=== PATIENT | female | born 1960 | race Caucasian/White ===

== ENCOUNTER 2017-11-29 17:02 | Observation (INO) | payer MEDICAID, SELFPAY ==
[2017-11-29] VITALS (12 sets, daily range): BP systolic 115–153; BP diastolic 65–79; PULSE 74–93; RESP 11–16; TEMP 36.6–36.9; O2SAT 94–97; BMI 29.1
--- NOTE | 2017-11-29 17:23 | EKG12_ITS ---
Test Reason : CP Blood Pressure : / mmHG Vent. Rate : 083 BPM Atrial Rate : 083 BPM P-R Int : 154 ms QRS Dur : 094 ms QT Int : 404 ms P-R-T Axes : 071 -53 052 degrees QTc Int : 474 ms Normal sinus rhythm Left axis deviation Low voltage QRS (LIMB LEADS) Poor R wave progression Septal infarct , AGE UNDETERMINED Abnormal ECG Confirmed by MYLES KAN, BROCK ([id number]), supervising editor news reel LEONOR OHARA ([id number]) on 12/01/2017 2:44:59 PM Referred By: RAFAEL Confirmed By:BROCK BUENO MD
[2017-11-29] MEDS: Nitroglycerin Oint 1 INCH PACKET TRANSDERM. (17:30)
--- NOTE | 2017-11-29 17:30 | RAD_ITS ---
STUDY: X-RAY CHEST REASON FOR EXAM: Female, 57 years old. Chest pain TECHNIQUE: AP portable COMPARISON: March 04, 2015 FINDINGS: Lungs are mildly hyperinflated and there is interstitial thickening in the lower lobes.. There is no demonstrated pleural abnormality. Normal size heart. Normal mediastinum and melinda. Normal visualized pulmonary arteries. Normal visualized aortic arch and descending thoracic aorta. Dorsal spine demonstrates spondylosis Normal visualized ribs, clavicles, and shoulders. There is no demonstrated abnormality of the visualized soft tissue structures of the upper abdomen. No significant change since prior exam RAD/Chest 1 View (Portable) IMPRESSION: COPD. No acute disease Electronically Signed: Robin Hall MD at 18:12 EDT , Service support ,
[2017-11-29 17:50] LABS: Absolute Lymphocyte Count 3.02 X10^3/ul (0.83-4.51); Absolute Neutrophil Count 6.1 X10^3/uL (2.0-7.7); Basophil# 0.02 X10^3/uL; Basophil% 0.2 % (0-1); Hemoglobin 13.4 g/dl (12.0-15.0); Lymphocyte # 3.02 X10^3/ul (4.0); Lymphocyte % 29.5 % (19-41); Mean Corp Hgb Conc 32.7 g/gl (32-36); Mean Corpuscular Hgb 28.1 pg (27.0-32.0); Mean Platelet Vol. 10.3 fl (6.2-12.0); Monocyte# 0.88 X10^3/uL; Monocyte% 8.6 % (0-10); Neutrophil # 6.08 X10^3/uL (2.7-7.7); Neutrophil % 59.5 % (47-70); Platelet Count 276 K/mm3 (150-450); RBC Distribution Width CV 13.3 % (11.6-14.6); RBC Distribution Width SD 41.8 fl (35.1-43.9); Red Blood Count 4.77 M/mm3 (4.2-5.4); White Blood Count 10.2 K/mm3 (4.4-11.0)
[2017-11-29 17:51] LABS: POSITIVE COUNT NO; POSITIVE DIFFERENTIAL NO; POSITIVE MORPHOLOGY NO
[2017-11-29 18:01] LABS: Anion Gap 6 (5-15); BUN 15 mg/dL (7-18); BUN/Creat Ratio 15.9 RATIO (10-20); Calcium,Total 9.3 mg/dL (8.5-10.1); Chloride 100 mmol/L (98-107); Creatinine, Serum 0.94 mg/dL (0.55-1.02); EST Glomerular Filtration Rate 64 mL/min (>60); Est Glom Filt Rate - Afr Amer 78 mL/min (>60); Estimated Creatinine Clearance 57.99 ml/min; Glucose 216 mg/dL (74-106); Potassium 3.6 mmol/L (3.5-5.1); Sodium Level 133 mmol/L (136-145)
--- NOTE | 2017-11-29 19:27 | PCM.HP.STD ---
Problem List (1) Hyperlipidemia Status: Chronic (2) Type II diabetes mellitus Status: Chronic (3) Hx of coronary artery disease Status: Chronic Comment: Status post stent History of Present Illness Date of Admission: 11/29/17 Chief Complaint: Chest pain. The patient is a 57 year old F with past medical history as mentioned above presented to the emergency room because of chest pain. Her symptoms started this afternoon she was driving with chest pain, across her chest, sharp, shooting pain, 8 out of 10 in severity, radiates to her neck, associated with shortness of breath and nausea, lasted for about 10 minutes, slightly relieved with nitroglycerin and without aggravating factors. When she was driving, she took the nitroglycerin and she came to the emergency room. Upon arrival, she was chest pain-free. In the emergency department, her vital signs are stable. Her routine blood work was unremarkable. Her EKG revealed normal sinus rhythm, normal GA interval, normal QRS and no acute ST elevation. His troponin was negative. Chest x-ray showed no acute findings. She is being admitted for chest pain for evaluation. Past Medical History Past Medical History (Chronic Problems): Chronic Problems Hyperlipidemia (Chronic) Type II diabetes mellitus (Chronic) Hx of coronary artery disease (Chronic) Status post stent Allergies No Known Allergies Allergy (Verified 11/29/17 17:09) Home Medications: Ambulatory Orders Medication Instructions Recorded ALPRAZolam [Xanax] 0.25 mg PO BID PRN 07/03/13 Aspirin 325 mg PO DAILY@0800 07/03/13 Fluoxetine [Prozac] 40 mg PO DAILY 07/03/13 Lisinopril [Zestril] 5 mg PO DAILY 07/03/13 Metformin HCl [Glucophage] 1,000 mg PO BIDCM 07/03/13 Nitroglycerin [Nitrostat] 0.4 mg SUBLINGUAL Q5M PRN 07/03/13 Simvastatin [Zocor] 40 mg PO QHS 07/03/13 Buspirone HCl [Buspirone HCl] 5 mg PO BID 11/29/17 Surgical History: cholecystectomy, - - History of back surgery w/ hardware w/ childhood trauma, carpal tunnel BL, L knee arthroscopic surgery, BLTL, L elbow surgery. 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 Review of Systems Constitutional: Denies: Anorexia, Chills, Fever, Weakness Eyes: Denies: Blurred vision, Double vision, Drainage, Redness, Vision Change HEENT: Denies: Difficulty Hearing, Ear Pain, Eye Pain, Nasal Congestion, Sore Throat Cardiovascular: Reports: Chest Pain. Denies: Edema, Heaviness, Light Headedness, Orthopnea, Paroxysmal Noc. Dyspnea, Syncope Respiratory: Reports: Shortness of Breath. Denies: Cough, Pleuritic Pain, Sputum production, Wheezing Gastrointestinal: Reports: Nausea. Denies: Abdominal Pain, Constipation, Diarrhea, Vomiting Genitourinary: Denies: Dysuria, Frequency, Hematuria Musculoskeletal: Denies: Arm Pain, Back Pain, Foot Pain Skin: Denies: Dryness, Rash Neurological: Denies: Balance problems, Double vision, Change in Speech, Slurred speech, Headaches, Incoordination, Numbness Psychiatric: Reports: Anxiety, Depression Endocrine: Denies: Change in Body Habitus, Polydipsia VTE Information - Inpt Only VTE Present on Admission: No VTE Mechan Device Prophylaxis: None VTE Pharm Prophylaxis ordered?: Yes - Physical Exam General: Alert, Oriented x3, Cooperative, No apparent distress HEENT: Atraumatic, PERRLA, EOMI, Normocephalic Oral: Moist Mucosa, No Gingival or Mucosal Lesions/ Ulcerations Neck: Supple, No JVD, Negative Carotid Bruits, Trachea Midline, Thyroid Normal Size and Texture Lungs: Clear to auscultation, Normal air movement, No rhonchi, No wheeze, No rales Cardiovascular: Regular rate, Regular Rhythm, Normal S1, Normal S2, No murmurs Abdomen: Bowel Sounds Present, Soft, Non Tender, Non-Distended, No Hepato-splenomegaly Extremities: No clubbing, No cyanosis, No edema Skin: No rashes, No breakdown Lymphatic: No Cervical, Supraclavicular, or Inguinal Adenopathy Neurological: Cranial nerves II-XII grossly intact, Motor Exam 5/5 strength throughout Psych/Mental Status: Normal Affect, Appropriate, Alert and oriented to time, place, person, mood and affect Vital Signs Temp Pulse Resp BP Pulse Ox 98 F 82 16 115/65 94 11/29/17 19:21 11/29/17 19:21 11/29/17 19:21 11/29/17 19:21 11/29/17 19:21 Oxygen Delivery Method Room Air Weight: 175 lb Body Mass Index (BMI) 29.1 Laboratory Tests Past 24 Hrs 11/29/17 11/29/17 17:15 17:15 WBC 10.2 RBC 4.77 Hgb 13.4 Hct 41.0 MCV 86.0 MCH 28.1 MCHC 32.7 RDW 13.3 RDW Differential 41.8 Plt Count 276 MPV 10.3 Immature Gran % (Auto) 0.200 Neut % (Auto) 59.5 Lymph % (Auto) 29.5 [place] % (Auto) 8.6 Eos % (Auto) 2.0 Baso % (Auto) 0.2 Absolute Neuts (auto) 6.1 Absolute Lymphs (auto) 3.02 Total Counted Not Reportable Sodium 133 L Potassium 3.6 Chloride 100 Carbon Dioxide 27.0 Anion Gap 6 BUN 15 Creatinine 0.94 Estim Creat Clear Calc 57.99 Est GFR (MDRD) Af Amer 78 Est GFR (MDRD) Non-Af 64 BUN/Creatinine Ratio 15.9 Glucose 216 H Calcium 9.3 Troponin I < 0.015 Clinical Impression(s) from Imaging Studies Chest X-Ray 11/29/17 17:30 IMPRESSION: COPD. No acute disease Electronically Signed: Robin Hall MD at 18:12 EDT , Service support , Assessment/Plan This is a 57 years old female patient presented to the emergency department because of chest pain and she is being admitted for evaluation. #1 chest pain: Risk factors are CAD status post stents, age, history of smoking, hypertension, hyperlipidemia and type 2 diabetes. Her SHANNA score is 3. Her initial EKG revealed no acute ischemic changes. Troponin is negative ?1. Chest x-ray was unremarkable. At this time, she is chest pain-free. Vital signs are stable. Plan: Admit to PCU for observation, cardiac monitoring, serial cardiac enzymes, repeat EKG tomorrow morning, IV morphine as needed for pain, nuclear stress test tomorrow morning if cardiac enzymes are negative, continue aspirin, lisinopril and statins. #2 CAD status post stents: Plan as above, continue aspirin, lisinopril and simvastatin. #3 type 2 diabetes mellitus: ADA diet, Accu-Cheks, insulin sliding scale, hold metformin for now. #4 hyperlipidemia: Continue statins. #5 anxiety/depression: Continue Xanax, fluoxetine and buspirone. #6 DVT prophylaxis: Subcu Lovenox. This note was generated with [employer] dictation software. It may contain incorrect words, spelling, and punctuation that were not noted in checking the note before signing. Code Visit OBSV E&M: 80005 Initial observation care L3
--- NOTE | 2017-11-29 19:30 | HP.PCM_ITS ---
Problem List (1) Hyperlipidemia Status: Chronic (2) Type II diabetes mellitus Status: Chronic (3) Hx of coronary artery disease Status: Chronic Comment: Status post stent History of Present Illness Date of Admission: 11/29/17 Chief Complaint: Chest pain. The patient is a 57 year old F with past medical history as mentioned above presented to the emergency room because of chest pain. Her symptoms started this afternoon she was driving with chest pain, across her chest, sharp, shooting pain, 8 out of 10 in severity, radiates to her neck, associated with shortness of breath and nausea, lasted for about 10 minutes, slightly relieved with nitroglycerin and without aggravating factors. When she was driving, she took the nitroglycerin and she came to the emergency room. Upon arrival, she was chest pain-free. In the emergency department, her vital signs are stable. Her routine blood work was unremarkable. Her EKG revealed normal sinus rhythm, normal MS interval, normal QRS and no acute ST elevation. His troponin was negative. Chest x-ray showed no acute findings. She is being admitted for chest pain for evaluation. Past Medical History Past Medical History (Chronic Problems): Chronic Problems Hyperlipidemia (Chronic) Type II diabetes mellitus (Chronic) Hx of coronary artery disease (Chronic) Status post stent Allergies No Known Allergies Allergy (Verified 11/29/17 17:09) Home Medications: Ambulatory Orders Medication Instructions Recorded ALPRAZolam [Xanax] 0.25 mg PO BID PRN 07/03/13 Aspirin 325 mg PO DAILY@0800 07/03/13 Fluoxetine [Prozac] 40 mg PO DAILY 07/03/13 Lisinopril [Zestril] 5 mg PO DAILY 07/03/13 Metformin HCl [Glucophage] 1,000 mg PO BIDCM 07/03/13 Nitroglycerin [Nitrostat] 0.4 mg SUBLINGUAL Q5M PRN 07/03/13 Simvastatin [Zocor] 40 mg PO QHS 07/03/13 Buspirone HCl [Buspirone HCl] 5 mg PO BID 11/29/17 Surgical History: cholecystectomy, - - History of back surgery w/ hardware w/ childhood trauma, carpal tunnel BL, L knee arthroscopic surgery, BLTL, L elbow surgery. 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 Review of Systems Constitutional: Denies: Anorexia, Chills, Fever, Weakness Eyes: Denies: Blurred vision, Double vision, Drainage, Redness, Vision Change HEENT: Denies: Difficulty Hearing, Ear Pain, Eye Pain, Nasal Congestion, Sore Throat Cardiovascular: Reports: Chest Pain. Denies: Edema, Heaviness, Light Headedness , Orthopnea, Paroxysmal Noc. Dyspnea, Syncope Respiratory: Reports: Shortness of Breath. Denies: Cough, Pleuritic Pain, Sputum production, Wheezing Gastrointestinal: Reports: Nausea. Denies: Abdominal Pain, Constipation, Diarrhea, Vomiting Genitourinary: Denies: Dysuria, Frequency, Hematuria Musculoskeletal: Denies: Arm Pain, Back Pain, Foot Pain Skin: Denies: Dryness, Rash Neurological: Denies: Balance problems, Double vision, Change in Speech, Slurred speech, Headaches, Incoordination, Numbness Psychiatric: Reports: Anxiety, Depression Endocrine: Denies: Change in Body Habitus, Polydipsia VTE Information - Inpt Only VTE Present on Admission: No VTE Mechan Device Prophylaxis: None VTE Pharm Prophylaxis ordered?: Yes - Physical Exam General: Alert, Oriented x3, Cooperative, No apparent distress HEENT: Atraumatic, PERRLA, EOMI, Normocephalic Oral: Moist Mucosa, No Gingival or Mucosal Lesions/ Ulcerations Neck: Supple, No JVD, Negative Carotid Bruits, Trachea Midline, Thyroid Normal Size and Texture Lungs: Clear to auscultation, Normal air movement, No rhonchi, No wheeze, No rales Cardiovascular: Regular rate, Regular Rhythm, Normal S1, Normal S2, No murmurs Abdomen: Bowel Sounds Present, Soft, Non Tender, Non-Distended, No Hepato- splenomegaly Extremities: No clubbing, No cyanosis, No edema Skin: No rashes, No breakdown Lymphatic: No Cervical, Supraclavicular, or Inguinal Adenopathy Neurological: Cranial nerves II-XII grossly intact, Motor Exam 5/5 strength throughout Psych/Mental Status: Normal Affect, Appropriate, Alert and oriented to time, place, person, mood and affect Vital Signs Temp Pulse Resp BP Pulse Ox 98 F 82 16 115/65 94 11/29/17 19:21 11/29/17 19:21 11/29/17 19:21 11/29/17 19:21 11/29/17 19:21 Oxygen Delivery Method Room Air Weight: 175 lb Body Mass Index (BMI) 29.1 Laboratory Tests Past 24 Hrs 11/29/17 11/29/17 17:15 17:15 WBC 10.2 RBC 4.77 Hgb 13.4 Hct 41.0 MCV 86.0 MCH 28.1 MCHC 32.7 RDW 13.3 RDW Differential 41.8 Plt Count 276 MPV 10.3 Immature Gran % (Auto) 0.200 Neut % (Auto) 59.5 Lymph % (Auto) 29.5 [place] % (Auto) 8.6 Eos % (Auto) 2.0 Baso % (Auto) 0.2 Absolute Neuts (auto) 6.1 Absolute Lymphs (auto) 3.02 Total Counted Not Reportable Sodium 133 L Potassium 3.6 Chloride 100 Carbon Dioxide 27.0 Anion Gap 6 BUN 15 Creatinine 0.94 Estim Creat Clear Calc 57.99 Est GFR (MDRD) Af Amer 78 Est GFR (MDRD) Non-Af 64 BUN/Creatinine Ratio 15.9 Glucose 216 H Calcium 9.3 Troponin I < 0.015 Clinical Impression(s) from Imaging Studies Chest X-Ray 11/29/17 17:30 IMPRESSION: COPD. No acute disease Electronically Signed: Robin Hall MD at 18:12 EDT , Service support , Assessment/Plan This is a 57 years old female patient presented to the emergency department because of chest pain and she is being admitted for evaluation. #1 chest pain: Risk factors are CAD status post stents, age, history of smoking , hypertension, hyperlipidemia and type 2 diabetes. Her SHANNA score is 3. Her initial EKG revealed no acute ischemic changes. Troponin is negative ?1. Chest x-ray was unremarkable. At this time, she is chest pain-free. Vital signs are stable. Plan: Admit to PCU for observation, cardiac monitoring, serial cardiac enzymes, repeat EKG tomorrow morning, IV morphine as needed for pain, nuclear stress test tomorrow morning if cardiac enzymes are negative, continue aspirin, lisinopril and statins. #2 CAD status post stents: Plan as above, continue aspirin, lisinopril and simvastatin. #3 type 2 diabetes mellitus: ADA diet, Accu-Cheks, insulin sliding scale, hold metformin for now. #4 hyperlipidemia: Continue statins. #5 anxiety/depression: Continue Xanax, fluoxetine and buspirone. #6 DVT prophylaxis: Subcu Lovenox. This note was generated with [employer] dictation software. It may contain incorrect words, spelling, and punctuation that were not noted in checking the note before signing. Code Visit OBSV E&M: 59456 Initial observation care L3
--- NOTE | 2017-11-29 19:52 | ED.VISSUMM ---
- ER Visit Summary Date of Service: 11/29/17 Chief Complaint: [Chest pain] History of Present Illness: The patient is a 57 F [who presents the emergency department with chest pain. She had a brief episode last night while walking to the kitchen. Today she was driving in the car and it was more intense and lasted longer. It was across her anterior chest. It was an intense ache. She had shortness of breath and nausea associated with it. She had similar symptoms when she had her heart attack several years ago. She does not typically get chest discomfort. She had a heart cath 2 years ago which looked okay. She did take a nitro.] Physical Examination: [] WN WD NAD PERRL EOMI MMM NECK supple and nontender, no masses RRR no murmur rub or gallop, no peripheral edema, symmetric radial pulses CTAB no respiratory distress ABDOMEN is soft and nontender, normal bowel sounds, no distension, no rebound or guarding SKIN is warm and dry no rashes Alert and Oriented x3, CN II-XII in tact, no motor or sensory deficits, gait normal No lymphadenopathy Test Results: [] Emergency Department Course and Treatment: [EKG is sinus at a rate of 83 with Q waves in V1 and V2 which are unchanged from previous EKG no acute ischemic changes. Troponin was normal. Chest x-ray was unremarkable. She was given nitro placed. She had taken aspirin a full aspirin at home already today. She will be admitted to the hospital.] Treatment Plan: [] Disposition: [Admit Impression: [Chest pain] This note was generated with [employer] dictation software. It may contain incorrect words, spelling, and punctuation that were not noted in review of the chart prior to signing ED Disposition - Plan for ED Patient: Chief Complaint: Chest Pain
--- NOTE | 2017-11-29 20:50 | EKG12_ITS ---
Test Reason : ADMISSION Blood Pressure : / mmHG Vent. Rate : 074 BPM Atrial Rate : 074 BPM P-R Int : 162 ms QRS Dur : 094 ms QT Int : 426 ms P-R-T Axes : 061 -25 039 degrees QTc Int : 472 ms Normal sinus rhythm Low voltage QRS (limb leads) Septal infarct , age undetermined Abnormal ECG Confirmed by MYLES KAN, BROCK ([id number]), editor index LEONOR OHARA ([id number]) on 12/07/2017 11:35:46 AM Referred By: VONDA Confirmed By:BROCK BUENO MD
[2017-11-29] MEDS: 0.9% Normal Saline 1,000 ML 75 ML IV (20:57)
[2017-11-29 20:59] LABS: Hemoglobin A1c 10.8 % (4.2-6.3)
[2017-11-29] MEDS: Atorvastatin Calcium 20 MG Tablet PO (22:02)
[2017-11-29] MEDS: busPIRone 5 MG Tablet PO (22:02)
[2017-11-29] MEDS: Insulin Lispro 100 UNIT/ML INSULN.PEN SC (22:02)
[2017-11-30] VITALS (14 sets, daily range): BP systolic 108–134; BP diastolic 61–75; PULSE 61–97; RESP 14–18; TEMP 36.6–36.9; O2SAT 93–98
[2017-11-30 00:11] LABS: Bedside Glucose 272 mg/dL (70-110)
[2017-11-30] MEDS: Aspirin 325 MG Tablet PO (05:29)
[2017-11-30] MEDS: Lisinopril 5 MG Tablet PO (05:29)
--- NOTE | 2017-11-30 05:55 | EKG12_ITS ---
Test Reason : AM Blood Pressure : / mmHG Vent. Rate : 067 BPM Atrial Rate : 067 BPM P-R Int : 168 ms QRS Dur : 096 ms QT Int : 428 ms P-R-T Axes : 058 -27 032 degrees QTc Int : 452 ms Normal sinus rhythm Leftward axis Low voltage QRS (limb leads) Septal infarct , age undetermined Abnormal ECG Confirmed by MYLES KAN, BROCK ([id number]), assistant production editor LEONOR OHARA ([id number]) on 12/07/2017 11:34:30 AM Referred By: VONDA Confirmed By:BROCK BUENO MD
[2017-11-30 06:26] LABS: Absolute Neutrophil Count 5.1 X10^3/uL (2.0-7.7); Basophil# 0.01 X10^3/uL; Basophil% 0.1 % (0-1); Eosinophil# 0.21 X10^3/uL; Eosinophils% 2.6 % (0-5); Hematocrit 41.3 % (37-47); Hemoglobin 13.5 g/dl (12.0-15.0); Lymphocyte % 25.7 % (19-41); Mean Corp Hgb Conc 32.7 g/gl (32-36); Mean Corpuscular Hgb 28.4 pg (27.0-32.0); Mean Corpuscular Volume 86.9 fL (81-99); Mean Platelet Vol. 10.2 fl (6.2-12.0); Monocyte% 8.6 % (0-10); Neutrophil # 5.12 X10^3/uL (2.7-7.7); Neutrophil % 62.8 % (47-70); Platelet Count 256 K/mm3 (150-450); RBC Distribution Width CV 13.3 % (11.6-14.6); RBC Distribution Width SD 42.2 fl (35.1-43.9); Red Blood Count 4.75 M/mm3 (4.2-5.4); White Blood Count 8.2 K/mm3 (4.4-11.0)
[2017-11-30 06:36] LABS: Anion Gap 8 (5-15); BUN 13 mg/dL (7-18); BUN/Creat Ratio 14.1 RATIO (10-20); Calcium,Total 8.6 mg/dL (8.5-10.1); Chloride 101 mmol/L (98-107); Creatinine, Serum 0.92 mg/dL (0.55-1.02); EST Glomerular Filtration Rate 66 mL/min (>60); Est Glom Filt Rate - Afr Amer 80 mL/min (>60); Estimated Creatinine Clearance 59.25 ml/min; Glucose 289 mg/dL (74-106); Potassium 4.2 mmol/L (3.5-5.1); Prothrombin Time (Protime)PT. 13.1 SECONDS (11.7-14.9); Sodium Level 139 mmol/L (136-145)
[2017-11-30 06:37] LABS: Partial Thromboplast Time 25.3 Seconds (24.1-36.2)
[2017-11-30 06:56] LABS: POSITIVE COUNT NO; POSITIVE DIFFERENTIAL NO; POSITIVE MORPHOLOGY NO
[2017-11-30 07:06] LABS: Bedside Glucose 296 mg/dL (70-110)
--- NOTE | 2017-11-30 09:02 | STRESSREP_ITS ---
Stress Test Report Date: 11/30/2017 Procedure: Pharmacologic stress nuclear imaging study Indications: Chest pain; CAD; status post PCI Consent: Per the patient Procedure: The patient underwent pharmacologic (Regadenoson) evaluation with a peak heart rate of 88 beats per minute (54 predicted maximal heart rate) and a peak blood pressure of 130/78 mmHg. The baseline ECG demonstrated normal sinus rhythm; poor R-wave progression. The peak pharmacologic ECG demonstrated no obvious ECG changes. There were no cardiac dysrhythmias pretest, during pharmacologic infusion, or recovery. There was no complaint of chest discomfort during pharmacologic infusion or recovery. The examination was discontinued secondary to completion of protocol. Impression: 1. Pharmacologic (Regadenoson) evaluation 2. Peak pharmacologic ECG with no obvious ECG changes. 3. There were no cardiac dysrhythmias pretest, during pharmacologic infusion, or recovery 4. Nuclear images pending Myocardial perfusion imaging study: Technique: The patient was injected with 11.9 millicuries of technetium 99m Cardiolite and subsequently rest SPECT Cardiolite nuclear imaging was obtained in the horizontal long, vertical long, and short axis views. The patient underwent pharmacologic (Regadenoson) evaluation with a peak heart rate of 88 beats per minute (54 % percent predicted maximal heart rate) and a peak blood pressure of 130/78 mmHg. The patient was injected with 34.1 millicuries of technetium 99m Cardiolite and subsequently stress SPECT Cardiolite nuclear imaging was obtained in the horizontal long, vertical long, and short axis views. A gated Cardiolite study at peak stress was obtained. Interpretation: Rest and stress SPECT Cardiolite nuclear imaging status post realignment, normalization, and attenuation correction demonstrate an area of diminished tracer uptake in portions of the anterior apical and inferoapical segments without significant change between rest and stress, however, status post stress there are additional areas of diminished tracer uptake in portions of the distal anterior and septal apical areas. There is diminished end systolic thickening and brightening in the aforementioned areas. The gated Cardiolite study demonstrates diminished myocardial thickening and inward wall motion in the apical areas. The reported LVEF is 63 %. Impression: 1. And stress SPECT Cardiolite nuclear imaging demonstrate myocardial perfusion changes potentially compatible with an area of previous myocardial injury involving portions of the anterior apical/inferoapical segments with post stress myocardial perfusion changes appearing compatible with an area of stress-induced myocardial ischemia involving portions of the distal anterior and septal apical segments. 2. The gated Cardiolite study reports an LVEF of 63 %. This note was generated with [employer] dictation software. It may contain incorrect words, spelling, and punctuation that were not noted in checking the note before signing.
[2017-11-30] MEDS: busPIRone 5 MG Tablet PO ×2 (09:08→22:29)
[2017-11-30] MEDS: Insulin Lispro 100 UNIT/ML INSULN.PEN SC ×4 (09:08→22:33)
[2017-11-30] MEDS: FLUoxetine 20 MG Capsule 40 MG PO (09:08)
[2017-11-30] MEDS: Acetaminophen 325 MG Tablet 650 MG PO ×2 (09:12→15:55)
[2017-11-30 11:36] LABS: Bedside Glucose 267 mg/dL (70-110)
--- NOTE | 2017-11-30 12:39 | PCM.PROGNOTE ---
<Jw Campoverde - Last Filed: 11/30/17 12:39> Subjective: Currently no CP. Pt has had prior cath and stents x 2. Pain yesterday was BL across chest wall and severe. Pt quit smoking 4 years ago. She also reports recent dieting with 20 lb weight loss. She only takes metformin for DM. - Physical Exam General: Alert, Oriented x3, Cooperative HEENT: Atraumatic, PERRLA, EOMI, Normocephalic Neck: Supple, No JVD, Negative Carotid Bruits Lungs: Clear to auscultation, Normal air movement Cardiovascular: Regular rate, No murmurs Abdomen: Bowel Sounds Present, Soft, Non Tender Extremities: No edema, Capillary Refill Less than 3 Seconds Skin: No rashes, No breakdown Musculoskeletal: No Tenderness to Palpation of Joints or Extremities Neurological: Cranial nerves II-XII grossly intact Psych/Mental Status: Normal Affect, Appropriate, Alert and oriented to time, place, person, mood and affect Vital Signs Temp Pulse Resp BP Pulse Ox 98.0 F 69 16 119/63 95 11/30/17 09:06 11/30/17 11:09 11/30/17 09:06 11/30/17 09:06 11/30/17 09:06 Oxygen Delivery Method Room Air Weight: 81.9 kg Body Mass Index (BMI) 30.0 Intake and Output for Last 24 Hours 11/28/17 11/29/17 11/30/17 23:59 23:59 23:59 Intake Total 610 / 610 851 / 851 Output Total 800 / 800 Balance 610 / 610 51 / 51 Laboratory Tests Past 24 Hrs 11/29/17 11/30/17 11/30/17 21:21 00:11 05:35 WBC 8.2 RBC 4.75 Hgb 13.5 Hct 41.3 MCV 86.9 MCH 28.4 MCHC 32.7 RDW 13.3 RDW Differential 42.2 Plt Count 256 MPV 10.2 Immature Gran % (Auto) 0.200 Neut % (Auto) 62.8 Lymph % (Auto) 25.7 [place] % (Auto) 8.6 Eos % (Auto) 2.6 Baso % (Auto) 0.1 Absolute Neuts (auto) 5.1 Absolute Lymphs (auto) 2.10 Total Counted Not Reportable PT INR APTT Sodium Potassium Chloride Carbon Dioxide Anion Gap BUN Creatinine Estim Creat Clear Calc Est GFR (MDRD) Af Amer Est GFR (MDRD) Non-Af BUN/Creatinine Ratio Glucose Calcium Troponin I < 0.015 < 0.015 11/30/17 11/30/17 05:35 05:35 WBC RBC Hgb Hct MCV MCH MCHC RDW RDW Differential Plt Count MPV Immature Gran % (Auto) Neut % (Auto) Lymph % (Auto) [place] % (Auto) Eos % (Auto) Baso % (Auto) Absolute Neuts (auto) Absolute Lymphs (auto) Total Counted PT 13.1 INR 1.0 APTT 25.3 Sodium 139 Potassium 4.2 Chloride 101 Carbon Dioxide 30.0 Anion Gap 8 BUN 13 Creatinine 0.92 Estim Creat Clear Calc 59.25 Est GFR (MDRD) Af Amer 80 Est GFR (MDRD) Non-Af 66 BUN/Creatinine Ratio 14.1 Glucose 289 H Calcium 8.6 Troponin I POC Glucose 11/30/17 11/30/17 11/29/17 11:15 06:18 21:59 POC Glucose 267 H 296 H 272 H Medical Necessity - Tobacco Use Smoking Status: Former smoker Assessment/Plan 1. Chest pain with abnormal stress test and hx CAD with 2 prior stents. - consult to cardiology. Prior CAD - on statin, asa, LÓPEZ. BP controlled. Check FLP. Trop neg. 2. DMt2 - poor A1C. Will need additional agent at ID. Metformin held. SSI. 3. ? COPD - heavy former smoker. CXR with COPD. Currently no resp complaints. 4. Anx/Dep - continue home meds. DVT ppx: lovenox This patient was seen by Jw Campoverde PA-C under the supervision of Doctor Holguin. <Lorena Holguin - Last Filed: 11/30/17 16:34> - Physical Exam Vital Signs Temp Pulse Resp BP Pulse Ox 97.9 F 85 17 125/69 H 94 11/30/17 15:00 11/30/17 15:54 11/30/17 15:00 11/30/17 15:00 11/30/17 15:00 Oxygen Delivery Method Room Air Weight: 81.9 kg Body Mass Index (BMI) 30.0 Intake and Output for Last 24 Hours 11/28/17 11/29/17 11/30/17 23:59 23:59 23:59 Intake Total 610 / 610 851 / 851 Output Total 800 / 800 Balance 610 / 610 51 / 51 Laboratory Tests Past 24 Hrs 11/29/17 11/30/17 11/30/17 21:21 00:11 05:35 WBC 8.2 RBC 4.75 Hgb 13.5 Hct 41.3 MCV 86.9 MCH 28.4 MCHC 32.7 RDW 13.3 RDW Differential 42.2 Plt Count 256 MPV 10.2 Immature Gran % (Auto) 0.200 Neut % (Auto) 62.8 Lymph % (Auto) 25.7 [place] % (Auto) 8.6 Eos % (Auto) 2.6 Baso % (Auto) 0.1 Absolute Neuts (auto) 5.1 Absolute Lymphs (auto) 2.10 Total Counted Not Reportable PT INR APTT Sodium Potassium Chloride Carbon Dioxide Anion Gap BUN Creatinine Estim Creat Clear Calc Est GFR (MDRD) Af Amer Est GFR (MDRD) Non-Af BUN/Creatinine Ratio Glucose Calcium Troponin I < 0.015 < 0.015 11/30/17 11/30/17 05:35 05:35 WBC RBC Hgb Hct MCV MCH MCHC RDW RDW Differential Plt Count MPV Immature Gran % (Auto) Neut % (Auto) Lymph % (Auto) [place] % (Auto) Eos % (Auto) Baso % (Auto) Absolute Neuts (auto) Absolute Lymphs (auto) Total Counted PT 13.1 INR 1.0 APTT 25.3 Sodium 139 Potassium 4.2 Chloride 101 Carbon Dioxide 30.0 Anion Gap 8 BUN 13 Creatinine 0.92 Estim Creat Clear Calc 59.25 Est GFR (MDRD) Af Amer 80 Est GFR (MDRD) Non-Af 66 BUN/Creatinine Ratio 14.1 Glucose 289 H Calcium 8.6 Troponin I POC Glucose 11/30/17 11/30/17 11/29/17 11:15 06:18 21:59 POC Glucose 267 H 296 H 272 H Assessment/Plan Patient was seen and examined independently of which physician personnel security assistant Jw Campoverde. I agree and concur with his interval history, physical examination assessment and plan as documented above. Patient has no new complaints. Vitals are stable. Stress test is positive, cardiology consulted Labs stable, HbA1c is 10.8 Continue on aspirin, statin, beta-lexa, ACEI, Ticagrelor. We will start on insulin, Lantus 5 units nightly, due with Accu-Cheks and insulin sliding scale Code Visit Inpatient E&M: 75766 Subs Hosp L3
[2017-11-30] MEDS: Enoxaparin 40 MG/0.4 ML Syringe SC (13:00)
--- NOTE | 2017-11-30 13:25 | ECHOD_ITS ---
Version 2 Reason For Study: CAD/ASHD Procedure This was a 2D Doppler, Color Flow transthoracic echocardiogram. The exam was of adequate technical quality. Exam performed portable in patient room. Left Ventricle Normal LV size. Segmental dysfunction with preserved ejection fraction (see wall motion). The estimated ejection fraction is 55 %. Transmitral doppler flow suggestive of impaired relaxation of left ventricle. Mid-Anterior : Hypokinetic. Anterior [place] : Akinetic. Inferior [place] : Akinetic. Right Ventricle Normal RV size. Normal systolic function. Atria Normal left atrium. Normal right atrium. No doppler evidence for ASD. Mitral Valve There is no mitral annular calcification. Mild diffuse mitral valve thickening. Mild (1+) mitral valve insufficiency. Tricuspid Valve Normal tricuspid valve. Mild tricuspid valve insufficiency. Right ventricular systolic pressure estimated to be 27 mmHg. Aortic Valve Trisinus/trileaflet aortic valve. Mild focal aortic valve calcification. Pulmonic Valve The pulmonic valve is not well visualized. Great Vessels Normal sized aortic root. Pericardium/Pleural No pericardial effusion. MMode/2D Measurements & Calculations LVIDd: 4.5 cm IVSd: 1.1 cm Ao root diam: 3.3 cm LVIDs: 3.3 cm LVPWd: 1.2 cm RVDd: 2.9 cm FS: 26.4 % LAV(MOD-bp): 31.0 ml LVAd ap4: 28.4 cm2 SV(MOD-sp4): 49.0 ml LAV(MOD-bp) Indexed: 16.4 ml/m2 EDV(MOD-sp4): 90.5 ml LAV(MOD-sp2): 30.3 ml EDV(sp4-el): 95.3 ml LAV(MOD-sp4): 30.9 ml LVAs ap4: 17.4 cm2 ESV(MOD-sp4): 41.4 ml ESV(sp4-el): 41.9 ml EF(MOD-sp4): 54.2 % EF(sp4-el): 56.1 % SV(sp4-el): 53.4 ml LA A4 area: 13.0 cm2 RA A4 area: 11.3 cm2 Time Measurements MV dec time: 0.23 sec Doppler Measurements & Calculations MV E max isaías: 90.3 cm/sec Lat Peak E' Isaías: 9.4 cm/sec Med Peak E' Isaías: 8.5 cm/sec MV A max isaías: 100.5 cm/sec E/E' lat: 9.6 E/E' med: 10.6 MV E/A: 0.90 Ao V2 max: 160.8 cm/sec LV V1 max: 114.5 cm/sec PA V2 max: 97.1 cm/sec Ao max P.3 mmHg LV V1 max P.2 mmHg TR max isaías: 243.9 cm/sec TR max P.2 mmHg Interpretation Summary Segmental dysfunction with preserved ejection fraction (see wall motion). The estimated ejection fraction is 55 %. Mild diffuse mitral valve thickening. Mild (1+) mitral valve insufficiency. Mild tricuspid valve insufficiency. Mild focal aortic valve calcification. Right ventricular systolic pressure estimated to be 27 mmHg. Transmitral doppler flow suggestive of impaired relaxation of left ventricle Ordering Physician: Timo Rivera Referring Physician: RICKY SOTO Performed By: Anastasia Carlisle RDCS
--- NOTE | 2017-11-30 15:03 | CASEMGMT ---
Insurance review for [facility] facilities. [facility], , [facility], Mariangel CHARLES, Adrianna, ARSENIO.
[2017-11-30] MEDS: Metoprolol Tartrate 25 MG Tablet PO ×2 (15:54→22:29)
[2017-11-30] MEDS: TICAGRELOR 90 MG TABLET PO ×2 (15:55→22:28)
[2017-11-30 17:11] LABS: Bedside Glucose 289 mg/dL (70-110)
--- NOTE | 2017-11-30 18:38 | PCM.CONS.C ---
Problem List (1) Angina pectoris Status: Acute (2) Abnormal cardiovascular stress test Status: Acute (3) CAD (coronary artery disease) Status: Chronic Qualifiers: Coronary Disease-Associated Artery/Lesion type: [place] artery [place] vs. transplanted heart: [place] heart (4) S/P PTCA (percutaneous transluminal coronary angioplasty) Status: Chronic (5) Hyperlipidemia Status: Chronic Qualifiers: Hyperlipidemia type: unspecified Qualified Code(s): E78.5 - Hyperlipidemia, unspecified (6) Type II diabetes mellitus Status: Chronic Reason for Consult Date of Consultation: 11/30/17 History of Present Illness: The patient is a 57 year old female with a past cardiovascular history of underlying CAD, anterior lateral KS, status post LAD PCI, superimposed on hyperlipidemia and hypertension, who presents for evaluation of chest discomfort concerning for angina pectoris and subsequently an abnormal pharmacologic stress nuclear imaging study concerning for previous KS and associated myocardial ischemia. The patient states that she noted chest discomfort at rest/while driving. She stopped her car. She used nitroglycerin sublingual. She substernally proceeded to [facility] emergency department as opposed to proceeding to her PCP. She is associated shortness of breath/dyspnea and nausea. She denied emesis or diaphoresis. There was no near syncope or syncope. She has not complained of orthopnea, PND, or peripheral pitting edema. She was evaluated and brought into the hospital for further evaluation and care. Her cardiac enzymes were reported as negative. Her ECG demonstrated no new acute ECG changes. She underwent a pharmacologic stress nuclear imaging study. This demonstrated myocardial perfusion changes concerning for an area of possible previous myocardial injury/infarction involving portions of the apical segments (anterior apical/inferoapical) as well as concerns for associated stress-induced myocardial ischemia involving portions of the distal anterior and septal apical segments. She has also undergone evaluation with a transesophageal echocardiogram. The results are as noted below. Interpretation Summary Segmental dysfunction with preserved ejection fraction (see wall motion). The estimated ejection fraction is 55 %. Mild diffuse mitral valve thickening. Mild (1+) mitral valve insufficiency. Mild tricuspid valve insufficiency. Mild focal aortic valve calcification. Right ventricular systolic pressure estimated to be 27 mmHg. Transmitral doppler flow suggestive of impaired relaxation of left ventricle She has been having issues with her hyperglycemia. This is being evaluated by internal medicine. [] Past Medical History Allergies/Adverse Reactions: Allergies No Known Allergies Allergy (Verified 11/29/17 17:09) Home Medications: Ambulatory Orders Medication Instructions Recorded ALPRAZolam [Xanax] 0.25 mg PO BID PRN 07/03/13 Aspirin 325 mg PO DAILY@0800 07/03/13 Fluoxetine [Prozac] 40 mg PO DAILY 07/03/13 Lisinopril [Zestril] 5 mg PO DAILY 07/03/13 Metformin HCl [Glucophage] 1,000 mg PO BIDCM 07/03/13 Nitroglycerin [Nitrostat] 0.4 mg SUBLINGUAL Q5M PRN 07/03/13 Simvastatin [Zocor] 40 mg PO QHS 07/03/13 Buspirone HCl [Buspirone HCl] 5 mg PO BID 11/29/17 Past Medical History (Chronic Problems): Chronic Problems CAD (coronary artery disease) (Chronic) S/P PTCA (percutaneous transluminal coronary angioplasty) (Chronic) Hyperlipidemia (Chronic) Type II diabetes mellitus (Chronic) Hx of coronary artery disease (Chronic) Status post stent Surgical History: angioplasty, cholecystectomy, - - History of back surgery w/ hardware w/ childhood trauma, carpal tunnel BL, L knee arthroscopic surgery, BLTL, L elbow surgery. 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 Lives: With Family Smoking Status: Former smoker Alcohol: None Drugs: None Review of Systems - Review of Systems General: Denies: Fever, Night Sweats, Fatigue Cardiovascular: Reports: Chest Discomfort, Chest Discomfort at Rest, Shortness of Breath, Shortness of Breath at Rest. Denies: Orthopnea, PND, Peripheral Edema, Palpitations, Lightheadedness, Dizziness, Near Syncope, Syncope Respiratory: Reports: Shortness of Breath. Denies: Cough, Sputum Production, Hemoptysis Gastrointestinal: Reports: Nausea. Denies: Hematemesis, Hematochezia, Melena Genitourinary: Denies: Dysuria, Hematuria Skin: Denies: Rash Subjectve: This is a 57-year-old white male who appears to be resting comfortably at this time in no acute distress. Objective: Vital Signs Temp Pulse Resp BP Pulse Ox 97.9 F 85 17 125/69 H 94 11/30/17 15:00 06/14/18 15:54 11/30/17 15:00 11/30/17 15:00 11/30/17 15:00 Oxygen Delivery Method Room Air Weight: 180 lb 8.937 oz Body Mass Index (BMI) 30.0 Intake and Output for Last 24 Hours 11/28/17 11/29/17 11/30/17 23:59 23:59 23:59 Intake Total 610 / 610 1251 / 1251 Output Total 2200 / 2200 Balance 610 / 610 -949 / -949 General: Awake, Alert, Oriented x 3, Cooperative, No Acute Distress HEENT: Atraumatic, Normocephalic, PERRL, EOMI, Sclera Non Icteric Oral: Moist Mucosa Neck: Supple, Good ROM, No JVD Lungs: Clear to auscultation Cardiovascular: Regular Rhythm, Normal S1, Normal S2 Vascular: No Carotid Bruits Abdomen: Bowel Sounds Present, Soft, Non Tender Extremities: No Cyanosis, No Clubbing, No edema Neurological: No Focal Motor or Sensory Deficit Psych/Mental Status: Appropriate, Normal Affect 11/29/17 21:21: Troponin I < 0.015 11/30/17 00:11: Troponin I < 0.015 11/30/17 05:35: WBC 8.2, RBC 4.75, Hgb 13.5, Hct 41.3, MCV 86.9, MCH 28.4, MCHC 32.7, RDW 13.3, RDW Differential 42.2, Plt Count 256, MPV 10.2, Immature Gran % (Auto) 0.200, Neut % (Auto) 62.8, Lymph % (Auto) 25.7, [place] % (Auto) 8.6, Eos % (Auto) 2.6, Baso % (Auto) 0.1, Absolute Neuts (auto) 5.1, Total Counted Not Reportable 11/30/17 05:35: PT 13.1, INR 1.0, APTT 25.3 11/30/17 05:35: Sodium 139, Potassium 4.2, Chloride 101, Carbon Dioxide 30.0, Anion Gap 8, BUN 13, Creatinine 0.92, Est GFR (MDRD) Af Amer 80, Est GFR (MDRD) Non-Af 66, BUN/Creatinine Ratio 14.1, Glucose 289 H, Calcium 8.6 Rhythm: Sinus rhythm EKG: Sinus rhythm ECHO: As noted above Stress Test: As noted above Cardiac Cath: 09/22/2011: [place], [place]: Left main with no angiographic disease; LAD with mild luminal irregularities within the pre-existing stent in the mid LAD; first diagonal branch with ostial 20-25% stenosis; LCx with distal mild diffuse disease; RCA with 50% stenosis; left ventriculogram with an LVEF of 40% with apical, inferoapical, and anteroapical akinesia with aneurysmal deformity 06/17/2011: [place], [place]: Left main normal; LAD occluded; LCx with first OM with 20-30% stenosis; RCA being a large dominant vessel with mid 50% stenosis; left ventricle with anterolateral and anterior apical hypokinesia to akinesia with an LVEF of 25-30% PCI: 06/17/2011: [place], [place]: PTCA/stent/EDUIN of the LAD CXR: Preliminary evaluation: No acute cardiopulmonary disease process appreciated Assessment/Plan 1. Angina pectoris The patient presents with symptoms concerning for unstable angina pectoris. She is undergone the rule out KS protocol which has been negative by cardiac enzymes and acute ECG changes. She had a pharmacologic stress nuclear imaging study which appears to be abnormal. At the present time she will continue medical management. She has been recommended for further evaluation with diagnostic cardiac catheterization. The procedure and risks were discussed with her. She was agreeable to this approach. 2. Abnormal pharmacologic stress nuclear imaging study She does have findings which appear to compatible with her history of CAD, previous KS, and previous PCI. There are concerns of associated stress-induced myocardial ischemia. Thus she will undergo further evaluation and care as noted above. 3. CAD status post anterolateral KS status post LAD PCI This is a remote diagnosis for the patient. She will continue medical management. Based upon her clinical presentation and objective findings to undergo evaluation as noted above. 4. Hyperlipidemia The patient will need to continue lipid-lowering therapy as deemed appropriate. 5. Diabetes mellitus The patient will continue under the care of internal medicine. Comment: The above was discussed with the patient. This note was generated with UserZoomation software. It may contain incorrect words, spelling, and punctuation that were not noted in checking the note before signing.
--- NOTE | 2017-11-30 18:48 | CON.PCM_ITS ---
Problem List (1) Angina pectoris Status: Acute (2) Abnormal cardiovascular stress test Status: Acute (3) CAD (coronary artery disease) Status: Chronic Qualifiers: Coronary Disease-Associated Artery/Lesion type: [place] artery [place] vs. transplanted heart: prairie band heart (4) S/P PTCA (percutaneous transluminal coronary angioplasty) Status: Chronic (5) Hyperlipidemia Status: Chronic Qualifiers: Hyperlipidemia type: unspecified Qualified Code(s): E78.5 - Hyperlipidemia , unspecified (6) Type II diabetes mellitus Status: Chronic Reason for Consult Date of Consultation: 11/30/17 History of Present Illness: The patient is a 57 year old female with a past cardiovascular history of underlying CAD, anterior lateral OK, status post LAD PCI, superimposed on hyperlipidemia and hypertension, who presents for evaluation of chest discomfort concerning for angina pectoris and subsequently an abnormal pharmacologic stress nuclear imaging study concerning for previous OK and associated myocardial ischemia. The patient states that she noted chest discomfort at rest/while driving. She stopped her car. She used nitroglycerin sublingual. She substernally proceeded to [facility] emergency department as opposed to proceeding to her PCP. She is associated shortness of breath/dyspnea and nausea. She denied emesis or diaphoresis. There was no near syncope or syncope. She has not complained of orthopnea, PND, or peripheral pitting edema. She was evaluated and brought into the hospital for further evaluation and care. Her cardiac enzymes were reported as negative. Her ECG demonstrated no new acute ECG changes. She underwent a pharmacologic stress nuclear imaging study. This demonstrated myocardial perfusion changes concerning for an area of possible previous myocardial injury/infarction involving portions of the apical segments (anterior apical/inferoapical) as well as concerns for associated stress-induced myocardial ischemia involving portions of the distal anterior and septal apical segments. She has also undergone evaluation with a transesophageal echocardiogram. The results are as noted below. Interpretation Summary Segmental dysfunction with preserved ejection fraction (see wall motion). The estimated ejection fraction is 55 %. Mild diffuse mitral valve thickening. Mild (1+) mitral valve insufficiency. Mild tricuspid valve insufficiency. Mild focal aortic valve calcification. Right ventricular systolic pressure estimated to be 27 mmHg. Transmitral doppler flow suggestive of impaired relaxation of left ventricle She has been having issues with her hyperglycemia. This is being evaluated by internal medicine. [] Past Medical History Allergies/Adverse Reactions: Allergies No Known Allergies Allergy (Verified 11/29/17 17:09) Home Medications: Ambulatory Orders Medication Instructions Recorded ALPRAZolam [Xanax] 0.25 mg PO BID PRN 07/03/13 Aspirin 325 mg PO DAILY@0800 07/03/13 Fluoxetine [Prozac] 40 mg PO DAILY 07/03/13 Lisinopril [Zestril] 5 mg PO DAILY 07/03/13 Metformin HCl [Glucophage] 1,000 mg PO BIDCM 07/03/13 Nitroglycerin [Nitrostat] 0.4 mg SUBLINGUAL Q5M PRN 07/03/13 Simvastatin [Zocor] 40 mg PO QHS 07/03/13 Buspirone HCl [Buspirone HCl] 5 mg PO BID 11/29/17 Past Medical History (Chronic Problems): Chronic Problems CAD (coronary artery disease) (Chronic) S/P PTCA (percutaneous transluminal coronary angioplasty) (Chronic) Hyperlipidemia (Chronic) Type II diabetes mellitus (Chronic) Hx of coronary artery disease (Chronic) Status post stent Surgical History: angioplasty, cholecystectomy, - - History of back surgery w/ hardware w/ childhood trauma, carpal tunnel BL, L knee arthroscopic surgery, BLTL, L elbow surgery. 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 Lives: With Family Smoking Status: Former smoker Alcohol: None Drugs: None Review of Systems - Review of Systems General: Denies: Fever, Night Sweats, Fatigue Cardiovascular: Reports: Chest Discomfort, Chest Discomfort at Rest, Shortness of Breath, Shortness of Breath at Rest. Denies: Orthopnea, PND, Peripheral Edema, Palpitations, Lightheadedness, Dizziness, Near Syncope, Syncope Respiratory: Reports: Shortness of Breath. Denies: Cough, Sputum Production, Hemoptysis Gastrointestinal: Reports: Nausea. Denies: Hematemesis, Hematochezia, Melena Genitourinary: Denies: Dysuria, Hematuria Skin: Denies: Rash Subjectve: This is a 57-year-old white male who appears to be resting comfortably at this time in no acute distress. Objective: Vital Signs Temp Pulse Resp BP Pulse Ox 97.9 F 85 17 125/69 H 94 11/30/17 15:00 06/14/18 15:54 11/30/17 15:00 11/30/17 15:00 11/30/17 15:00 Oxygen Delivery Method Room Air Weight: 180 lb 8.937 oz Body Mass Index (BMI) 30.0 Intake and Output for Last 24 Hours 11/28/17 11/29/17 11/30/17 23:59 23:59 23:59 Intake Total 610 / 610 1251 / 1251 Output Total 2200 / 2200 Balance 610 / 610 -949 / -949 General: Awake, Alert, Oriented x 3, Cooperative, No Acute Distress HEENT: Atraumatic, Normocephalic, PERRL, EOMI, Sclera Non Icteric Oral: Moist Mucosa Neck: Supple, Good ROM, No JVD Lungs: Clear to auscultation Cardiovascular: Regular Rhythm, Normal S1, Normal S2 Vascular: No Carotid Bruits Abdomen: Bowel Sounds Present, Soft, Non Tender Extremities: No Cyanosis, No Clubbing, No edema Neurological: No Focal Motor or Sensory Deficit Psych/Mental Status: Appropriate, Normal Affect 11/29/17 21:21: Troponin I < 0.015 11/30/17 00:11: Troponin I < 0.015 11/30/17 05:35: WBC 8.2, RBC 4.75, Hgb 13.5, Hct 41.3, MCV 86.9, MCH 28.4, MCHC 32.7, RDW 13.3, RDW Differential 42.2, Plt Count 256, MPV 10.2, Immature Gran % (Auto) 0.200, Neut % (Auto) 62.8, Lymph % (Auto) 25.7, [place] % (Auto) 8.6, Eos % (Auto) 2.6, Baso % (Auto) 0.1, Absolute Neuts (auto) 5.1, Total Counted Not Reportable 11/30/17 05:35: PT 13.1, INR 1.0, APTT 25.3 11/30/17 05:35: Sodium 139, Potassium 4.2, Chloride 101, Carbon Dioxide 30.0, Anion Gap 8, BUN 13, Creatinine 0.92, Est GFR (MDRD) Af Amer 80, Est GFR (MDRD) Non-Af 66, BUN/Creatinine Ratio 14.1, Glucose 289 H, Calcium 8.6 Rhythm: Sinus rhythm EKG: Sinus rhythm ECHO: As noted above Stress Test: As noted above Cardiac Cath: 09/22/2011: [place], [place]: Left main with no angiographic disease ; LAD with mild luminal irregularities within the pre-existing stent in the mid LAD; first diagonal branch with ostial 20-25% stenosis; LCx with distal mild diffuse disease; RCA with 50% stenosis; left ventriculogram with an LVEF of 40% with apical, inferoapical, and anteroapical akinesia with aneurysmal deformity 06/17/2011: [place], [place]: Left main normal; LAD occluded; LCx with first OM with 20-30% stenosis; RCA being a large dominant vessel with mid 50% stenosis; left ventricle with anterolateral and anterior apical hypokinesia to akinesia with an LVEF of 25-30% PCI: 06/17/2011: [place], [place]: PTCA/stent/EDUIN of the LAD CXR: Preliminary evaluation: No acute cardiopulmonary disease process appreciated Assessment/Plan 1. Angina pectoris The patient presents with symptoms concerning for unstable angina pectoris. She is undergone the rule out OK protocol which has been negative by cardiac enzymes and acute ECG changes. She had a pharmacologic stress nuclear imaging study which appears to be abnormal. At the present time she will continue medical management. She has been recommended for further evaluation with diagnostic cardiac catheterization. The procedure and risks were discussed with her. She was agreeable to this approach. 2. Abnormal pharmacologic stress nuclear imaging study She does have findings which appear to compatible with her history of CAD, previous OK, and previous PCI. There are concerns of associated stress-induced myocardial ischemia. Thus she will undergo further evaluation and care as noted above. 3. CAD status post anterolateral OK status post LAD PCI This is a remote diagnosis for the patient. She will continue medical management. Based upon her clinical presentation and objective findings to undergo evaluation as noted above. 4. Hyperlipidemia The patient will need to continue lipid-lowering therapy as deemed appropriate. 5. Diabetes mellitus The patient will continue under the care of internal medicine. Comment: The above was discussed with the patient. This note was generated with Solaiemesation software. It may contain incorrect words, spelling, and punctuation that were not noted in checking the note before signing.
[2017-11-30] MEDS: Atorvastatin Calcium 20 MG Tablet PO (22:29)
[2017-11-30 23:21] LABS: Bedside Glucose 255 mg/dL (70-110)
[2017-12-01] VITALS (16 sets, daily range): BP systolic 94–120; BP diastolic 49–71; PULSE 56–74; RESP 16–19; TEMP 36.6–37.3; O2SAT 93–96
[2017-12-01 05:08] LABS: Absolute Lymphocyte Count 1.46 X10^3/ul (0.83-4.51); Absolute Neutrophil Count 4.9 X10^3/uL (2.0-7.7); Basophil# 0.04 X10^3/uL; Basophil% 0.5 % (0-1); Eosinophil# 0.23 X10^3/uL; Hematocrit 41.8 % (37-47); Lymphocyte # 1.46 X10^3/ul (4.0); Lymphocyte % 19.2 % (19-41); Mean Corp Hgb Conc 33.5 g/gl (32-36); Mean Corpuscular Hgb 28.8 pg (27.0-32.0); Mean Platelet Vol. 10.4 fl (6.2-12.0); Monocyte# 0.96 X10^3/uL; Monocyte% 12.6 % (0-10); Neutrophil # 4.86 X10^3/uL (2.7-7.7); Neutrophil % 64.2 % (47-70); Platelet Count 282 K/mm3 (150-450); RBC Distribution Width CV 13.3 % (11.6-14.6); Red Blood Count 4.86 M/mm3 (4.2-5.4); White Blood Count 7.6 K/mm3 (4.4-11.0)
[2017-12-01 05:09] LABS: POSITIVE COUNT NO; POSITIVE DIFFERENTIAL NO; POSITIVE MORPHOLOGY NO
[2017-12-01 05:19] LABS: Prothrombin Time (Protime)PT. 13.3 SECONDS (11.7-14.9)
[2017-12-01 05:20] LABS: Partial Thromboplast Time 26.4 Seconds (24.1-36.2)
[2017-12-01 05:25] LABS: Anion Gap 10 (5-15); BUN 13 mg/dL (7-18); Calcium,Total 9.3 mg/dL (8.5-10.1); Chloride 101 mmol/L (98-107); Creatinine, Serum 0.93 mg/dL (0.55-1.02); EST Glomerular Filtration Rate 66 mL/min (>60); Est Glom Filt Rate - Afr Amer 80 mL/min (>60); Estimated Creatinine Clearance 58.61 ml/min; Glucose 250 mg/dL (74-106); Potassium 4.1 mmol/L (3.5-5.1); Sodium Level 138 mmol/L (136-145)
--- NOTE | 2017-12-01 05:55 | EKG12_ITS ---
Test Reason : AM EKG Blood Pressure : / mmHG Vent. Rate : 060 BPM Atrial Rate : 060 BPM P-R Int : 150 ms QRS Dur : 098 ms QT Int : 460 ms P-R-T Axes : 067 000 036 degrees QTc Int : 460 ms Normal sinus rhythm Poor R wave progression Anterior [place], age undetermined, cannot be excluded Confirmed by MYLES KAN, BROCK ([id number]), photographic editor LEONOR OHARA ([id number]) on 12/07/2017 11:28:10 AM Referred By: VONDA Confirmed By:BROCK BUENO MD
[2017-12-01] MEDS: Aspirin 325 MG Tablet PO (06:08)
[2017-12-01] MEDS: TICAGRELOR 90 MG TABLET PO (06:08)
[2017-12-01] MEDS: Metoprolol Tartrate 25 MG Tablet PO (06:08)
[2017-12-01] MEDS: Lisinopril 5 MG Tablet PO (06:08)
[2017-12-01] MEDS: 0.9% Normal Saline 1,000 ML 15 ML IV (06:09)
[2017-12-01 07:01] LABS: Bedside Glucose 254 mg/dL (70-110)
--- NOTE | 2017-12-01 10:08 | CL.D_ITS ---
Patient Name: CAPRI CORONEL Study Date: 12/01/2017 Performing: Timo Rivera MD Ht: 64.96 inches 165 cm : 1960 Wt: 180.78 lbs 82 kg Age: 57 Gender: female BSA: 1.89 PROCEDURE(S) PERFORMED [id number] CLINICAL PROFILE AND INDICATIONS Indications: Worsening Angina Heart Failure: None Stress/Imaging Stress Test w/SPECT MPI: Yes Result: PositiveStress Test with SPECT MPI: Positive Angina Classification Anginal Classification w/in 2 Weeks: CCS III CONCLUSIONS Elevated Left Ventricular End Diastolic Pressure Segmented LV systolic dysfunction- Mild LVEF: by LV gram 50 % [place] Multivessel CAD LAD proximal stent: patent RECOMMENDATIONS Risk factor modification Medical therapy DESCRIPTION OF PROCEDURE The patient arrived to the procedure lab. The risks and benefits of the procedure as well as a full d escription of our services here and current unavailability of surgical backup were fully explained to the patient and/or their significant other prior to the catheterization. The Timeout was completed, verifying the correct patient and procedure. The patient's procedural site was prepped and draped in the usual fashion. Local anesthetic was given subcutaneously to right radial region with Lidocaine 2% . Local anesthetic was given subcutaneously to right groin region with Lidocaine 2%. Using a modified Seldinger technique, arterial access was obtained via the right femoral artery, a 4Fr sheath was ins erted Left Coronary Artery selective angiography was performed in multiple views using a 4 Fr. JL4 c atheter. Right Coronary Artery selective angiography was then performed in multiple views using a 4 F r. JR4 catheter. Left Ventriculography was performed in BETANCOURT projection using a 4 Fr. Pigtail catheter . LV to AO pullback pressures were then recorded.The arterial sheath was pulled and manual compressio n applied until hemostasis is achieved. CORONARY ANGIOGRAPHY DOMINANCE: Right Dominant LEFT HEART ASSESSMENT Left Ventricular Ejection Fraction: by LV Gram 50 % Anterior Hypokinesis. Anterior Hypokinesis. Apical Akinesis Elevated Left Ventricular End Diastolic Pressure LVEDP: 13 mmHg LEFT MAIN: Angiographically normal CIRCUMFLEX ARTERY: Mild luminal irregularities RAMUS: Mild luminal irregularities RIGHT CORONARY ARTERY: Mild calcification Diffuse: Eccentric: 10-25 % Stenosis VALVE FINDINGS: Normal Aortic Valve function Normal Mitral Valve function AORTIC ROOT: Angiographically normal COMPLICATIONS No Complications PROCEDURE MEDICATIONS Fentanyl 50 mcg IV Versed 1 mg IV Fentanyl 1 mcg IV Fentanyl 50 mcg IV Oxygen: 2 L/min via nasal cannula SUMMARY OF HEMODYNAMIC DATA Time AIR REST ECG 08:39:58 AO 105/55 (75) SA 09:26:58 LV 110/2, 13 09:36:57 LV 105/2, 12 09:37:04 LV 110/2, 15 09:38:14 LV 110/2, 16 09:38:21 LVp 118/2, 17 09:38:28 AOp 118/58 (82) 09:38:33 Signed By Timo Rivera MD On 12/01/2017 10:08:08 Timo Rivera MD
[2017-12-01] MEDS: busPIRone 5 MG Tablet PO (11:43)
[2017-12-01] MEDS: FLUoxetine 20 MG Capsule 40 MG PO (11:43)
[2017-12-01] MEDS: Insulin Lispro 100 UNIT/ML INSULN.PEN SC (11:43)
[2017-12-01 12:11] LABS: Bedside Glucose 219 mg/dL (70-110)
--- NOTE | 2017-12-01 13:44 | PN_ITS ---
<Jw Campoverde - Last Filed: 12/01/17 13:42> Subjective: pt seen and examined prior to heart cath this morning. She had mild dyspnea at rest and anxiety concerning the procedure. No chest pain. No dizziness or lightheadedness. No palpitations. She returned to the unit after her heart cath no intervention was provided. - Physical Exam General: Alert, Oriented x3, Cooperative HEENT: Atraumatic, PERRLA, EOMI, Normocephalic Neck: Supple, No JVD, Negative Carotid Bruits Lungs: Clear to auscultation, Normal air movement Cardiovascular: Regular rate, No murmurs Abdomen: Bowel Sounds Present, Soft, Non Tender Extremities: No edema, Capillary Refill Less than 3 Seconds Skin: No rashes, No breakdown Musculoskeletal: No Tenderness to Palpation of Joints or Extremities Neurological: Cranial nerves II-XII grossly intact Psych/Mental Status: Normal Affect, Appropriate, Alert and oriented to time, place, person, mood and affect Vital Signs Temp Pulse Resp BP Pulse Ox 98.0 F 67 19 H 120/60 95 12/01/17 13:08 12/01/17 13:08 12/01/17 13:08 12/01/17 13:08 12/01/17 13:08 Oxygen Delivery Method Room Air Weight: 81.9 kg Body Mass Index (BMI) 30.0 Intake and Output for Last 24 Hours 11/29/17 11/30/17 12/01/17 23:59 23:59 23:59 Intake Total 610 / 610 1491 / 1491 259 / 259 Output Total 2200 / 2200 1000 / 1000 Balance 610 / 610 -709 / -709 -741 / -741 Laboratory Tests Past 24 Hrs 12/01/17 12/01/17 12/01/17 04:56 04:56 04:56 WBC 7.6 RBC 4.86 Hgb 14.0 Hct 41.8 MCV 86.0 MCH 28.8 MCHC 33.5 RDW 13.3 RDW Differential 41.0 Plt Count 282 MPV 10.4 Immature Gran % (Auto) 0.500 Neut % (Auto) 64.2 Lymph % (Auto) 19.2 [place] % (Auto) 12.6 H Eos % (Auto) 3.0 Baso % (Auto) 0.5 Absolute Neuts (auto) 4.9 Absolute Lymphs (auto) 1.46 Total Counted Not Reportable PT 13.3 INR 1.0 APTT 26.4 Sodium 138 Potassium 4.1 Chloride 101 Carbon Dioxide 27.0 Anion Gap 10 BUN 13 Creatinine 0.93 Estim Creat Clear Calc 58.61 Est GFR (MDRD) Af Amer 80 Est GFR (MDRD) Non-Af 66 BUN/Creatinine Ratio 14.0 Glucose 250 H Calcium 9.3 POC Glucose 12/01/17 12/01/17 11/30/17 11:33 06:49 22:32 POC Glucose 219 H 254 H 255 H 11/30/17 16:53 POC Glucose 289 H Medical Necessity - Tobacco Use Smoking Status: Former smoker Assessment/Plan All Active Problems Angina pectoris (Acute) Abnormal cardiovascular stress test (Acute) 1. Chest pain with abnormal stress test and hx CAD with 2 prior stents - s/p cath. no intervention provided. Medical management. Monitor overnight. 2. DMt2 - poor A1C. Will need additional agent at DC. Metformin - hold x 3 more days post cath. SSI. 3. ? COPD - heavy former smoker. CXR with COPD. Currently no resp complaints. 4. Anx/Dep - continue home meds. DVT ppx: lovenox This patient was seen by Jw Campoverde PA-C under the supervision of Doctor Chelsie. <Lorena Holguin - Last Filed: 12/01/17 17:59> - Physical Exam Vital Signs Temp Pulse Resp BP Pulse Ox 98.7 F 74 16 120/64 94 12/01/17 14:00 12/01/17 15:04 12/01/17 14:00 12/01/17 14:00 12/01/17 14:00 Oxygen Delivery Method Room Air Weight: 81.9 kg Body Mass Index (BMI) 30.0 Intake and Output for Last 24 Hours 11/29/17 11/30/17 12/01/17 23:59 23:59 23:59 Intake Total 610 / 610 1491 / 1491 259 / 259 Output Total 2200 / 2200 1000 / 1000 Balance 610 / 610 -709 / -709 -741 / -741 Laboratory Tests Past 24 Hrs 12/01/17 12/01/17 12/01/17 04:56 04:56 04:56 WBC 7.6 RBC 4.86 Hgb 14.0 Hct 41.8 MCV 86.0 MCH 28.8 MCHC 33.5 RDW 13.3 RDW Differential 41.0 Plt Count 282 MPV 10.4 Immature Gran % (Auto) 0.500 Neut % (Auto) 64.2 Lymph % (Auto) 19.2 [place] % (Auto) 12.6 H Eos % (Auto) 3.0 Baso % (Auto) 0.5 Absolute Neuts (auto) 4.9 Absolute Lymphs (auto) 1.46 Total Counted Not Reportable PT 13.3 INR 1.0 APTT 26.4 Sodium 138 Potassium 4.1 Chloride 101 Carbon Dioxide 27.0 Anion Gap 10 BUN 13 Creatinine 0.93 Estim Creat Clear Calc 58.61 Est GFR (MDRD) Af Amer 80 Est GFR (MDRD) Non-Af 66 BUN/Creatinine Ratio 14.0 Glucose 250 H Calcium 9.3 POC Glucose 12/01/17 12/01/17 11/30/17 11:33 06:49 22:32 POC Glucose 219 H 254 H 255 H Assessment/Plan Seen and examined. I agree with the interval history, physical exam and assessment and plan as documented by physician food and nutrition services assistant, Jw Campoverde. Had a cardiac cath today, undergoing post cath protocol. No acute events, no complaints. Denies dizziness or palpitations or shortness of breath. Patient will possibly be discharged today after being reviewed by Dr. Rivera.
--- NOTE | 2017-12-01 14:24 | NURSING ---
Patient ambulated hallway without any signs of bleeding or complication.
--- NOTE | 2017-12-01 14:31 | PCM.DC ---
- Discharge Diagnoses Current Active Problems: Current Active and Chronic Problems Angina pectoris (Acute) Abnormal cardiovascular stress test (Acute) CAD (coronary artery disease) (Chronic) S/P PTCA (percutaneous transluminal coronary angioplasty) (Chronic) You will use the following diet at home:: Calorie/Carbohydrate Controlled (specify 1200, 1400, etc) - 1800 ihsan / day, Cardiac - <2 g sodium daily Your food should be the consistency of: Regular Your liquids should be the consistency of: Regular/Thin Discharge Activity: Return to Normal Activity Allergies/Adverse Reactions: Allergies No Known Allergies Allergy (Verified 11/29/17 17:09) Medications to take at Discharge ALPRAZolam [Xanax] 0.25 mg PO BID PRN 07/03/13 Aspirin 325 mg PO DAILY@0800 07/03/13 Fluoxetine [Prozac] 40 mg PO DAILY 07/03/13 Lisinopril [Zestril] 5 mg PO DAILY 07/03/13 Nitroglycerin [Nitrostat] 0.4 mg SUBLINGUAL Q5M PRN 07/03/13 Buspirone HCl 5 mg PO BID 11/29/17 Atorvastatin Calcium [Lipitor] 40 mg PO QHS #30 tab 12/01/17 Liraglutide [Victoza] 0.6 mg SQ DAILY #1 pen 12/01/17 Metformin HCl [Glucophage] 1,000 mg PO BIDCM #0 12/01/17 Metoprolol Tartrate [Lopressor (beta lexa)] 25 mg PO BID #60 tab 12/01/17 The following prescriptions were given: Atorvastatin Calcium [Lipitor] 40 mg PO QHS #30 tab Liraglutide [Victoza] 0.6 mg SQ DAILY #1 pen Metoprolol Tartrate [Lopressor (beta lexa)] 25 mg PO BID #60 tab Primary Care Physician: Nataly Aguilar MD [Primary Care Provider] - Please follow up with your Primary Care Physician in: 1-2 weeks Please Follow Up With: Timo Rivera MD When: 2 weeks Please Follow Up With: Luz Dorado DIRECTOR LEARNING SERVICESSherrieC When: 2 weeks Proposed Discharge Date: 11/30/17
--- NOTE | 2017-12-01 14:35 | PCM.DC.SUM ---
<Jw Campoverde - Last Filed: 12/01/17 14:35> Discharge Date and Diagnosis Date of Admission: 11/29/17 Date of Discharge: 11/30/17 - Primary Discharge Diagnosis Active and Suspected Problems Angina pectoris (Acute) Abnormal cardiovascular stress test (Acute) CAD DMt2 uncontrolled former smoker Anx/depression - Secondary Discharge Diagnosis Chronic Problems CAD (coronary artery disease) (Chronic) S/P PTCA (percutaneous transluminal coronary angioplasty) (Chronic) Hyperlipidemia (Chronic) Type II diabetes mellitus (Chronic) Hx of coronary artery disease (Chronic) Status post stent Hospital Course and Treatment Imaging Results: Heart cath: Elevated LV end-diastolic pressure, segmental LV systolic dysfunction-mild, LV EF 50%, [place] multivessel CAD, LAD proximal stent: Patent. Recommendations: Risk factor modification, medical therapy. RAD/Chest 1 View (Portable) IMPRESSION: COPD. No acute disease Stress Test: Impression: 1. And stress SPECT Cardiolite nuclear imaging demonstrate myocardial perfusion changes potentially compatible with an area of previous myocardial injury involving portions of the anterior apical/inferoapical segments with post stress myocardial perfusion changes appearing compatible with an area of stress-induced myocardial ischemia involving portions of the distal anterior and septal apical segments. 2. The gated Cardiolite study reports an LVEF of 63 %. Echo: Interpretation Summary Segmental dysfunction with preserved ejection fraction (see wall motion). The estimated ejection fraction is 55 %. Mild diffuse mitral valve thickening. Mild (1+) mitral valve insufficiency. Mild tricuspid valve insufficiency. Mild focal aortic valve calcification. Right ventricular systolic pressure estimated to be 27 mmHg. Transmitral doppler flow suggestive of impaired relaxation of left ventricle Consultations 11/30/17 Consult: Onc/Wound/pastry cook helper Routine Comment: Reason for Consult:: Diabetic patient, abrasion to R inner ankle Operations: None Procedures: 2-D Echocardiogram, Cardiac catheterization, Stress test Summary of Care Provided: Physical exam on day of discharge: See daily progress note Hospital course: The patient is a 57 year old F who presented to the ER with chest pain, prior hx of CAD and stents in her past former smoker, diabetic uncontrolled, in the ER she had negative EKG, negative troponin, CXR c/w COPD. She was admitted and underwent a stress test the following day which was abnormal. Cardiology was consulted. She underwent a heart cath which showed showed multivessel CAD, however no stenting was indicated. LAD stent was patent. Medical therapy was advised. She was placed on a beta lexa. She was changed to a therapeutic dose of atorvastatin. She was placed on victoza for further A1C reduction with the added benefit of cardiac event risk reduction. She will continue aspirin and lisinopril. She was discharged home in stable condition. She was advised to follow up with her PCP, Order Entry Administrator, and with Endocrinology. This patient was seen by Jw Campoverde PA-C under the supervision of Doctor Holguin. [] Discharge Diet: Low fat/ Low Cholesterol, 1800 Calorie Control Diet, 2000 mg Sodium Diet Discharge Activity: Return to Normal Activity Home Medications: Medications to take at Discharge ALPRAZolam [Xanax] 0.25 mg PO BID PRN 07/03/13 Aspirin 325 mg PO DAILY@0800 07/03/13 Fluoxetine [Prozac] 40 mg PO DAILY 07/03/13 Lisinopril [Zestril] 5 mg PO DAILY 07/03/13 Nitroglycerin [Nitrostat] 0.4 mg SUBLINGUAL Q5M PRN 07/03/13 Buspirone HCl 5 mg PO BID 11/29/17 Atorvastatin Calcium [Lipitor] 40 mg PO QHS #30 tab 12/01/17 Liraglutide [Victoza] 0.6 mg SQ DAILY #1 pen 12/01/17 Metformin HCl [Glucophage] 1,000 mg PO BIDCM #0 12/01/17 Metoprolol Tartrate [Lopressor (beta lexa)] 25 mg PO BID #60 tab 12/01/17 Following Prescrptions Were Given to Patient: Atorvastatin Calcium [Lipitor] 40 mg PO QHS #30 tab Liraglutide [Victoza] 0.6 mg SQ DAILY #1 pen Metoprolol Tartrate [Lopressor (beta lexa)] 25 mg PO BID #60 tab Primary Care Physician: Nataly Aguilar MD [Primary Care Provider] - Please follow up with your Primary Care Physician in: 1-2 weeks Please Follow Up With: Timo Rivera MD When: 2 weeks Please Follow Up With: Luz Dorado NP-C When: 2 weeks Disposition: Home Minutes spent on discharge:: 35 Patient Condition:: Stable Medical Necessity - Tobacco Use Smoking Status: Former smoker Meaningful Use Info Meaningful Use Diagnoses (Choose all that apply): None applicable <Lorena Holguin - Last Filed: 12/01/17 17:41> Discharge Date and Diagnosis - Secondary Discharge Diagnosis Chronic Problems CAD (coronary artery disease) (Chronic) S/P PTCA (percutaneous transluminal coronary angioplasty) (Chronic) Hyperlipidemia (Chronic) Type II diabetes mellitus (Chronic) Hx of coronary artery disease (Chronic) Status post stent Hospital Course and Treatment Consultations 11/30/17 Consult: Onc/Wound/pastry cook helper Routine Comment: Reason for Consult:: Diabetic patient, abrasion to R inner ankle Summary of Care Provided: The patient is a 57 year old F [] Code Visit Inpatient E&M: 14444 Disch Hosp
--- NOTE | 2017-12-01 14:42 | DS.PCM_ITS ---
<Jw Campoverde - Last Filed: 12/01/17 14:35> Discharge Date and Diagnosis Date of Admission: 11/29/17 Date of Discharge: 11/30/17 - Primary Discharge Diagnosis Active and Suspected Problems Angina pectoris (Acute) Abnormal cardiovascular stress test (Acute) CAD DMt2 uncontrolled former smoker Anx/depression - Secondary Discharge Diagnosis Chronic Problems CAD (coronary artery disease) (Chronic) S/P PTCA (percutaneous transluminal coronary angioplasty) (Chronic) Hyperlipidemia (Chronic) Type II diabetes mellitus (Chronic) Hx of coronary artery disease (Chronic) Status post stent Hospital Course and Treatment Imaging Results: Heart cath: Elevated LV end-diastolic pressure, segmental LV systolic dysfunction-mild, LV EF 50%, [place] multivessel CAD, LAD proximal stent: Patent. Recommendations: Risk factor modification, medical therapy. RAD/Chest 1 View (Portable) IMPRESSION: COPD. No acute disease Stress Test: Impression: 1. And stress SPECT Cardiolite nuclear imaging demonstrate myocardial perfusion changes potentially compatible with an area of previous myocardial injury involving portions of the anterior apical/inferoapical segments with post stress myocardial perfusion changes appearing compatible with an area of stress-induced myocardial ischemia involving portions of the distal anterior and septal apical segments. 2. The gated Cardiolite study reports an LVEF of 63 %. Echo: Interpretation Summary Segmental dysfunction with preserved ejection fraction (see wall motion). The estimated ejection fraction is 55 %. Mild diffuse mitral valve thickening. Mild (1+) mitral valve insufficiency. Mild tricuspid valve insufficiency. Mild focal aortic valve calcification. Right ventricular systolic pressure estimated to be 27 mmHg. Transmitral doppler flow suggestive of impaired relaxation of left ventricle Consultations 11/30/17 Consult: Onc/Wound/data center manager Routine Comment: Reason for Consult:: Diabetic patient, abrasion to R inner ankle Operations: None Procedures: 2-D Echocardiogram, Cardiac catheterization, Stress test Summary of Care Provided: Physical exam on day of discharge: See daily progress note Hospital course: The patient is a 57 year old F who presented to the ER with chest pain, prior hx of CAD and stents in her past former smoker, diabetic uncontrolled, in the ER she had negative EKG, negative troponin, CXR c/w COPD. She was admitted and underwent a stress test the following day which was abnormal. Cardiology was consulted. She underwent a heart cath which showed showed multivessel CAD, however no stenting was indicated. LAD stent was patent. Medical therapy was advised. She was placed on a beta lexa. She was changed to a therapeutic dose of atorvastatin. She was placed on victoza for further A1C reduction with the added benefit of cardiac event risk reduction. She will continue aspirin and lisinopril. She was discharged home in stable condition. She was advised to follow up with her PCP, Construction Management In[employer], and with Endocrinology. This patient was seen by Jw Campoverde PA-C under the supervision of Doctor Holguin. [] Discharge Diet: Low fat/ Low Cholesterol, 1800 Calorie Control Diet, 2000 mg Sodium Diet Discharge Activity: Return to Normal Activity Home Medications: Medications to take at Discharge ALPRAZolam [Xanax] 0.25 mg PO BID PRN 07/03/13 Aspirin 325 mg PO DAILY@0800 07/03/13 Fluoxetine [Prozac] 40 mg PO DAILY 07/03/13 Lisinopril [Zestril] 5 mg PO DAILY 07/03/13 Nitroglycerin [Nitrostat] 0.4 mg SUBLINGUAL Q5M PRN 07/03/13 Buspirone HCl 5 mg PO BID 11/29/17 Atorvastatin Calcium [Lipitor] 40 mg PO QHS #30 tab 12/01/17 Liraglutide [Victoza] 0.6 mg SQ DAILY #1 pen 12/01/17 Metformin HCl [Glucophage] 1,000 mg PO BIDCM #0 12/01/17 Metoprolol Tartrate [Lopressor (beta lexa)] 25 mg PO BID #60 tab 12/01/17 Following Prescrptions Were Given to Patient: Atorvastatin Calcium [Lipitor] 40 mg PO QHS #30 tab Liraglutide [Victoza] 0.6 mg SQ DAILY #1 pen Metoprolol Tartrate [Lopressor (beta lexa)] 25 mg PO BID #60 tab Primary Care Physician: Nataly Aguilar MD [Primary Care Provider] - Please follow up with your Primary Care Physician in: 1-2 weeks Please Follow Up With: Timo Rivera MD When: 2 weeks Please Follow Up With: Luz Dorado NP-C When: 2 weeks Disposition: Home Minutes spent on discharge:: 35 Patient Condition:: Stable Medical Necessity - Tobacco Use Smoking Status: Former smoker Meaningful Use Info Meaningful Use Diagnoses (Choose all that apply): None applicable <Lorena Holguin - Last Filed: 12/01/17 17:41> Discharge Date and Diagnosis - Secondary Discharge Diagnosis Chronic Problems CAD (coronary artery disease) (Chronic) S/P PTCA (percutaneous transluminal coronary angioplasty) (Chronic) Hyperlipidemia (Chronic) Type II diabetes mellitus (Chronic) Hx of coronary artery disease (Chronic) Status post stent Hospital Course and Treatment Consultations 11/30/17 Consult: Onc/Wound/data center manager Routine Comment: Reason for Consult:: Diabetic patient, abrasion to R inner ankle Summary of Care Provided: The patient is a 57 year old F [] Code Visit Inpatient E&M: 92783 Disch Hosp
--- NOTE | 2017-12-01 14:51 | CASEMGMT ---
Per Khalida SELF, pt to be sent home on Victoza and med e-scribed to [facility] previously. Call to [facility] and per pharmacist, Victoza is covered and co-pay is $0. SStaten MACK WOOD
[2017-12-01] MEDS: Acetaminophen 325 MG Tablet 650 MG PO (15:51)
--- NOTE | 2017-12-01 17:45 | PCM.PN.CARD ---
Subjectve: The patient was evaluated earlier this day. She appeared to be without recurrent acute symptoms and/or adverse events. She subsequently underwent diagnostic cardiac catheterization which resulted in the recommendation for continued medical management. Objective: Vital Signs Temp Pulse Resp BP Pulse Ox 98.7 F 74 16 120/64 94 12/01/17 14:00 12/01/17 15:04 12/01/17 14:00 12/01/17 14:00 12/01/17 14:00 Oxygen Delivery Method Room Air Weight: 180 lb 8.937 oz Body Mass Index (BMI) 30.0 Intake and Output for Last 24 Hours 11/29/17 11/30/17 12/01/17 23:59 23:59 23:59 Intake Total 610 / 610 1491 / 1491 259 / 259 Output Total 2200 / 2200 1000 / 1000 Balance 610 / 610 -709 / -709 -741 / -741 General: Awake, Alert, Oriented x 3, Cooperative, No Acute Distress Neck: No JVD Lungs: Clear to auscultation Cardiovascular: Regular Rhythm, Normal S1, Normal S2 Abdomen: Bowel Sounds Present, Soft, Non Tender Extremities: No edema 12/01/17 04:56: WBC 7.6, RBC 4.86, Hgb 14.0, Hct 41.8, MCV 86.0, MCH 28.8, MCHC 33.5, RDW 13.3, RDW Differential 41.0, Plt Count 282, MPV 10.4, Immature Gran % (Auto) 0.500, Neut % (Auto) 64.2, Lymph % (Auto) 19.2, [place] % (Auto) 12.6 H, Eos % (Auto) 3.0, Baso % (Auto) 0.5, Absolute Neuts (auto) 4.9, Total Counted Not Reportable 12/01/17 04:56: PT 13.3, INR 1.0, APTT 26.4 12/01/17 04:56: Sodium 138, Potassium 4.1, Chloride 101, Carbon Dioxide 27.0, Anion Gap 10, BUN 13, Creatinine 0.93, Est GFR (MDRD) Af Amer 80, Est GFR (MDRD) Non-Af 66, BUN/Creatinine Ratio 14.0, Glucose 250 H, Calcium 9.3 Rhythm: Sinus rhythm Medical Necessity - Tobacco Use Smoking Status: Former smoker Assessment/Plan 1. Angina pectoris The patient presents with symptoms concerning for unstable angina pectoris. She is undergone the rule out AR protocol which has been negative by cardiac enzymes and acute ECG changes. She had a pharmacologic stress nuclear imaging study which appears to be abnormal. She underwent evaluation with a diagnostic cardiac catheterization. She did not require additional catheter based revascularization therapy. She has been recommended for continued medical management. 2. Abnormal pharmacologic stress nuclear imaging study Based upon her cardiac catheterization findings it appears her pharmacologic stress nuclear imaging study is compatible with an area of previous myocardial injury/infarction with [place]-AR related myocardial ischemia. She requires continued medical management at this time. 3. CAD status post anterolateral AR status post LAD PCI This is a remote diagnosis for the patient. She will continue medical management. She has been recommended for continued outpatient cardiovascular follow-up. She was agreeable to this approach. 4. Hyperlipidemia The patient will need to continue lipid-lowering therapy as deemed appropriate. 5. Diabetes mellitus The patient will continue under the care of internal medicine. Comment: The above was discussed with the patient, her family members, and Dr Holguin. This note was generated with [employer]able dictation software. It may contain incorrect words, spelling, and punctuation that were not noted in checking the note before signing.
--- NOTE | 2017-12-01 17:48 | PN.CARD_ITS ---
Subjectve: The patient was evaluated earlier this day. She appeared to be without recurrent acute symptoms and/or adverse events. She subsequently underwent diagnostic cardiac catheterization which resulted in the recommendation for continued medical management. Objective: Vital Signs Temp Pulse Resp BP Pulse Ox 98.7 F 74 16 120/64 94 12/01/17 14:00 12/01/17 15:04 12/01/17 14:00 12/01/17 14:00 12/01/17 14:00 Oxygen Delivery Method Room Air Weight: 180 lb 8.937 oz Body Mass Index (BMI) 30.0 Intake and Output for Last 24 Hours 11/29/17 11/30/17 12/01/17 23:59 23:59 23:59 Intake Total 610 / 610 1491 / 1491 259 / 259 Output Total 2200 / 2200 1000 / 1000 Balance 610 / 610 -709 / -709 -741 / -741 General: Awake, Alert, Oriented x 3, Cooperative, No Acute Distress Neck: No JVD Lungs: Clear to auscultation Cardiovascular: Regular Rhythm, Normal S1, Normal S2 Abdomen: Bowel Sounds Present, Soft, Non Tender Extremities: No edema 12/01/17 04:56: WBC 7.6, RBC 4.86, Hgb 14.0, Hct 41.8, MCV 86.0, MCH 28.8, MCHC 33.5, RDW 13.3, RDW Differential 41.0, Plt Count 282, MPV 10.4, Immature Gran % (Auto) 0.500, Neut % (Auto) 64.2, Lymph % (Auto) 19.2, [place] % (Auto) 12.6 H, Eos % (Auto) 3.0, Baso % (Auto) 0.5, Absolute Neuts (auto) 4.9, Total Counted Not Reportable 12/01/17 04:56: PT 13.3, INR 1.0, APTT 26.4 12/01/17 04:56: Sodium 138, Potassium 4.1, Chloride 101, Carbon Dioxide 27.0, Anion Gap 10, BUN 13, Creatinine 0.93, Est GFR (MDRD) Af Amer 80, Est GFR (MDRD ) Non-Af 66, BUN/Creatinine Ratio 14.0, Glucose 250 H, Calcium 9.3 Rhythm: Sinus rhythm Medical Necessity - Tobacco Use Smoking Status: Former smoker Assessment/Plan 1. Angina pectoris The patient presents with symptoms concerning for unstable angina pectoris. She is undergone the rule out PR protocol which has been negative by cardiac enzymes and acute ECG changes. She had a pharmacologic stress nuclear imaging study which appears to be abnormal. She underwent evaluation with a diagnostic cardiac catheterization. She did not require additional catheter based revascularization therapy. She has been recommended for continued medical management. 2. Abnormal pharmacologic stress nuclear imaging study Based upon her cardiac catheterization findings it appears her pharmacologic stress nuclear imaging study is compatible with an area of previous myocardial injury/infarction with [place]-PR related myocardial ischemia. She requires continued medical management at this time. 3. CAD status post anterolateral PR status post LAD PCI This is a remote diagnosis for the patient. She will continue medical management. She has been recommended for continued outpatient cardiovascular follow-up. She was agreeable to this approach. 4. Hyperlipidemia The patient will need to continue lipid-lowering therapy as deemed appropriate. 5. Diabetes mellitus The patient will continue under the care of internal medicine. Comment: The above was discussed with the patient, her family members, and Dr Holguin. This note was generated with [employer] dictation software. It may contain incorrect words, spelling, and punctuation that were not noted in checking the note before signing.
== END 2017-12-01 14:32 | disposition home or self-care (01) ==
LOC: ED 18:03 → PCU 19:39
PROVIDERS: Internal Medicine Cardiovascular Disease; Admitting Provider Hospitalist; Emergency Provider Emergency Medicine; Family Provider Internal Medicine; PCP Internal Medicine; Visit Provider Internal Medicine
DX: I25.119 Atherosclerotic heart disease of native coronary artery with unspecified angina pectoris (principal); E78.5 Hyperlipidemia, unspecified; E11.65 Type 2 diabetes mellitus with hyperglycemia; R94.39 Abnormal result of other cardiovascular function study; F41.9 Anxiety disorder, unspecified; F32.9 Major depressive disorder, single episode, unspecified; Z95.5 Presence of coronary angioplasty implant and graft; Z79.899 Other long term (current) drug therapy; Z87.891 Personal history of nicotine dependence; Z79.84 Long term (current) use of oral hypoglycemic drugs; I25.2 Old myocardial infarction
CPT/HCPCS: 36415; 71045; 78452; 80048; 82962; 83036; 84484; 85025; 85610; 85730; 93005; 93017; 93306; 93458; 96360; 96361; 96372; 97802; 99152; 99153; 99218; 99285; A9500; J7030; Q9967; A4216; C1769; C1894; G0378; J2785

== ENCOUNTER → 2019-07-09 07:56 | Outpatient (CLI) | payer MEDICAID, SELFPAY ==
[2019-02-08 14:56] VITALS: BMI 31.6
--- NOTE | 2019-07-09 08:03 | RAD_ITS ---
STUDY: AIR-CONTRAST UPPER GI SERIES. REASON FOR EXAM: Female, 59 years old. Hiatal hernia, mid abd pain, gb removed FLUOROSCOPY TIME (if supplied): ( 54 seconds ) minutes/seconds. 22 fluoroscopic spot views were obtained. TECHNIQUE: The patient ingested barium. Multiple images of the esophagus, stomach and duodenum were obtained. COMPARISON: None. FINDINGS: The esophagus is unremarkable. There is no evidence of gastroesophageal reflux. No mass lesion is seen. No ulceration is present. The stomach and duodenum are unremarkable. There is no active ulceration. No mass lesion is seen. RAD/Upper GI Series Only IMPRESSION: Unremarkable air-contrast upper GI series. Electronically Signed: Carlos Chou, at 13:11 EST , Service support ,
== END ==
PROVIDERS: PCP Internal Medicine; Referring Provider Nurse Practitioner Adult Health; Visit Provider Nurse Practitioner Adult Health
DX: R13.10 Dysphagia, unspecified (principal); K44.9 Diaphragmatic hernia without obstruction or gangrene
CPT/HCPCS: 74246

== ENCOUNTER 2019-11-20 14:45 | Emergency (ER) | payer MEDICAID, SELFPAY ==
[2019-02-08 14:56] VITALS: BMI 31.6
[2019-11-20] VITALS (8 sets, daily range): BP systolic 131–166; BP diastolic 67–87; PULSE 68–82; RESP 12–22; TEMP 36.3; O2SAT 92–96; BMI 33.0
--- NOTE | 2019-11-20 15:32 | EKG12_ITS ---
Test Reason : SOB Blood Pressure : / mmHG Vent. Rate : 067 BPM Atrial Rate : 067 BPM P-R Int : 166 ms QRS Dur : 094 ms QT Int : 442 ms P-R-T Axes : 037 -45 014 degrees QTc Int : 467 ms Normal sinus rhythm Left axis deviation Abnormal ECG Confirmed by TESSA KAN, VISH ([id number]), book editor LEONOR OHARA ([id number]) on 11/22/2019 9:16:24 AM Referred By: BB Confirmed By:VISH ZARATE MD
--- NOTE | 2019-11-20 15:35 | VDLE_ITS ---
Reason For Study: SWELLING Procedure LEFT Exam performed portable in ED. GSV is normal. A preliminary report was called and/or faxed CFV is compressible, spontaneous, phasic, to ED. competent, and demonstrates normal augmentation. FV is compressible, spontaneous, phasic, competent and demonstrates normal augmentation. POP V is compressible, spontaneous, phasic, competent and demonstrates normal augmentation. T/P Trunk is compressible. PTV is compressible. LT PerV is compressible. Interpretation Summary Deep veins of the left lower extremity are patent and compressible segmentally. There is no evidence of left lower extremity deep vein thrombosis. Valvular competence appears intact within the proximal deep venous system on the left . The left great saphenous vein appears patent and compressible segmentally. Ordering Physician: Farooq Estrella Referring Physician: RICKY SOTO Performed By: Cammy Garcia, GUILLE, RVT
--- NOTE | 2019-11-20 15:35 | ED.VIS.DYS ---
History of Present Illness Chief Complaint: Shortness of Breath Informant: Patient Onset: Days - 2-3 Activity at onset: Exertion, Light Activity, - - grad onset Timing: Intermittent Quality: Dyspnea on exertion. Negative for: Wheezing Current Severity: Gone - while resting Maximum Severity: Severe Worsened by: Exertion Relieved by: Rest Associated Symptoms: Negative for: Cough, Fever, Sweats Chest Pain: None Narrative: Patient states she has a home pulse oximeter, with light exertion around the house she has had a pulse ox go down to the 80s and today 70% on room air. She wears no oxygen. She does have mild COPD but stopped smoking 7 years ago and states her pulmonary function tests were good, she denies any wheezing. No chest discomfort. She has had some left lower leg pain and swelling since she injured it during a fall about 2 weeks ago, she states hematoma formed just below her knee on her medial ko, and as it resolved that she has had swelling in her ankle and wants to make sure she does not have another blood clot as she had a DVT in this leg in the past. She is no longer anticoagulated. She has couple stents, is on aspirin, but has been off of Effient for a long time. She denies any illnesses recently, but states back in August she thinks she had a coronavirus infection but she was not able to get tested for it. The symptoms resolved although she has had a little bit of trouble breathing when exerting herself or going up steps ever since, this is much worse in the last couple days. She denies having a cough but has a sensation that if I coughed, and got something up, it seems like it would feel better but she has low back pain that limits her from coughing hard. She states she injured that in the fall 2 weeks ago as well, she was going fishing and going down an embankment, lost her footing, ran the front of her body into a tree scratching of her face and injuring her low back where she had rods and screws. She went to an urgent care and had x-rays of that and they told her they were fine. She denies any new neurologic symptoms in her lower extremities or bowel or bladder dysfunction that is new. - Past Medical History (1) Atherosclerosis of [place] coronary artery of [place] heart without angina pectoris Status: Chronic (2) Hyperlipidemia Status: Chronic (3) S/P coronary artery stent placement Status: Chronic Comment: PTCA/stent x2 to prox LAD 05/2011 (4) Type II diabetes mellitus Status: Chronic Past Medical History - Allergies and Home Meds Allergies/Adverse Reactions: Allergies No Known Allergies Allergy (Verified 11/20/19 14:45) Primary Care Physician: Nataly Aguilar MD [Primary Care Provider] - Surgical History: angioplasty, cholecystectomy, - - History of back surgery w/ hardware w/ childhood trauma, carpal tunnel BL, L knee arthroscopic surgery, BLTL, L elbow surgery. Lives: Spouse/ Significant Other Smoking Status: Former smoker - Family History Maternal Family History: Family History (This Medical Record has been edited. Action required.) Father Myocardial infarction Family History: Reports: No pertinent history Paternal Family History: Family History (This Medical Record has been edited. Action required.) Father Myocardial infarction Family History: Reports: Heart Disease - Father w/ massive fatal SD/CAD 56 y/o, EtOH abuser also. Review of Systems General: Denies: Chills, Fever, Sweats Eyes: Denies: Visual changes - bilaterally, Diplopia ENT: Denies: Bilateral ear pain, Rhinorrhea, Sore throat Cardiovascular: Denies: Chest pain, Palpitations Respiratory: Reports: Dyspnea, Dyspnea on exertion. Denies: Cough, Sputum, Orthopnea Gastrointestinal: Denies: Abdominal pain, Nausea, Vomiting, Diarrhea, Melena, Hematochezia Genitourinary: Denies: Dysuria, Hematuria, Frequency Musculoskeletal: Reports: Back pain, Swelling, Extremity Pain. Denies: Neck pain Skin: Reports: Wounds. Denies: Rash Neurological: Denies: Headache, Weakness, Numbness Physical Exam Vital Signs/Narrative: Vital Signs Temp Pulse Resp BP Pulse Ox 11/20/19 14:46 97.3 F L 82 22 H 149/87 H 92 Inital Vital Signs reviewed: Yes General: Well nourished, Well developed, Obese, No Acute Distress Head: Normocephalic, Atraumatic Eyes: Perrl, EOMI ENT: Moist mucous membranes, No rhinorrhea Neck: Supple, Nontender, No lymphadenopathy, No JVD Cardiovascular: Regular rate, Regular rhythm, No murmurs. Negative for: Tachycardia Respiratory: No distress, CTA bilaterally, Chest nontender Abdomen: Soft, Nontender, Nondistended, Normal bowel sounds Back: Nontender, Normal Inspection, - - Well healed lumbosacral surgical scar. Negative for: CVA tenderness Extremities: Tenderness - Right medial proximal tibia, resolving hematoma. No crepitus or deformities., Edema - 1+ left lower extremity to mid ko without signs of cellulitis. None on the right. Skin: Normal color, No rash Neurological: Alert, Oriented x3, Cranial nerves II-XII grossly intact, Normal Strength, Normal Sensation Psychological: Normal affect, Normal Mood Diagnostic/Tx/Re-eval Impressions Chest X-Ray 11/20/19 16:08 IMPRESSION: No acute findings. Electronically Signed: Clair Thacker MD at 16:31 EDT Tel , Service support , Chest CTA 11/20/19 17:03 IMPRESSION: 1. No pulmonary embolus or aortic dissection. 2. Mosaic perfusion of the lungs, likely due to small airways disease. 3. L1 compression, age indeterminate. 4. Left adrenal nodule, nonspecific. 5. Right upper pole cyst. Electronically Signed: Clair Thacker MD at 18:23 EDT Tel , Service support , 11/20/19 16:08 Chest 1 View (Portable) [RAD] Stat 11/20/19 17:03 CTA Chest W/WO Contrast [CT] Stat Laboratory Results 11/20/19 11/20/19 11/20/19 15:16 15:16 15:16 WBC 10.6 RBC 3.86 L Hgb 10.9 L Hct 34.3 L MCV 88.9 MCH 28.2 MCHC 31.8 L RDW Std Deviation 45.9 H RDW Coeff of [place] 14.4 Plt Count 279 MPV 10.1 Immature Gran % (Auto) 1.200 H Neut % (Auto) 71.1 H Lymph % (Auto) 16.4 L [place] % (Auto) 8.3 Eos % (Auto) 2.4 Baso % (Auto) 0.6 Absolute Neuts (auto) 7.5 Absolute Lymphs (auto) 1.74 Nucleated RBC % 0 Sodium 138 Potassium 4.1 Chloride 104 Carbon Dioxide 25.0 Anion Gap 9 BUN 17 Creatinine 0.96 Estim Creat Clear Calc 57.61 Est GFR (MDRD) Af Amer 76 Est GFR (MDRD) Non-Af 63 BUN/Creatinine Ratio 17.7 Glucose 157 H Calcium 9.3 Troponin I < 0.015 B-Natriuretic Peptide 153.8 H - Rhythm Strip Rhythm Strip: Sinus Rhythm Rate: 67 Ectopy: None - EKG Initial EKG Interpretation: Sinus Rhythm, No Acute Injury Pattern, - - Leftward axis Prior: Changed - [place] is more left than it was 2 years ago Treatment - Dyspnea: Albuterol Repeat Evaluation: Improved - Medical Decision Making Patient is feeling better after albuterol. Her slight EKG change does not show a STEMI, and her enzymes are negative. I think this is probably incidental and unrelated to her symptoms right now. It is curious that her CT shows a mosaic blood flow pattern. I suspect this is shunting due to narrowed airways, possibly reactive airway. Consistent with this is the fact that she was wheezing on exam and improved with albuterol. The rest of her work-up is unremarkable showing no pulmonary embolus as well. We ambulated her, she felt better and stayed at or above 93% on room air. Given this I think would be reasonable to put her on a short course of steroids and have her follow-up as an outpatient she is comfortable with this plan. Also her leg ultrasound confirms she does not have a DVT and this is most likely due to her contusion/hematoma. ED Disposition - Plan for ED Patient: Disposition: Home or Assisted Living Diagnosis: COPD exacerbation, Traumatic hematoma of left lower leg Instructions: ED COPD Flare Prescriptions: Prednisone [Deltasone] 40 mg PO DAILY #10 tab Transmission Status: Pending to [facility] Doxycycline 100 mg PO BID #20 cap Transmission Status: Pending to [facility] Referrals: Nataly Aguilar MD [Primary Care Provider] - 3-5 Days Additional Instructions: Keep an eye on her blood sugars. If the steroids make your sugars go too high like 3-400s or higher, discontinuing follow-up with your doctor.
[2019-11-20 15:45] LABS: Absolute Lymphocyte Count 1.74 X10^3/uL (0.83-4.51); Absolute Neutrophil Count 7.5 X10^3/uL (2.0-7.7); Basophil# 0.06 X10^3/uL; Basophil% 0.6 % (0-1); Eosinophil# 0.25 X10^3/uL; Eosinophils% 2.4 % (0-5); Hematocrit 34.3 % (37-47); Hemoglobin 10.9 g/dL (12.0-15.0); Lymphocyte # 1.74 X10^3/ul (4.0); Lymphocyte % 16.4 % (19-41); Mean Corp Hgb Conc 31.8 g/dL (32-36); Mean Corpuscular Hgb 28.2 pg (27.0-32.0); Mean Corpuscular Volume 88.9 fL (81-99); Mean Platelet Vol. 10.1 fl (6.2-12.0); Monocyte# 0.88 X10^3/uL; Monocyte% 8.3 % (0-10); NRBC Flagged by Analyzer 0 % (0-5); Neutrophil # 7.54 X10^3/uL (2.7-7.7); Neutrophil % 71.1 % (47-70); Platelet Count 279 K/mm3 (150-450); RBC Distribution Width CV 14.4 % (11.6-14.6); RBC Distribution Width SD 45.9 fl (35.1-43.9); Red Blood Count 3.86 M/mm3 (4.2-5.4); White Blood Count 10.6 K/mm3 (4.4-11.0)
[2019-11-20] MEDS: Ipratropium/Albuterol Sulfate 3 ML AMPUL.NEB INHALATION (15:46)
[2019-11-20 15:58] LABS: Anion Gap 9 (5-15); BUN 17 mg/dL (7-18); BUN/Creat Ratio 17.7 RATIO (10-20); Calcium,Total 9.3 mg/dL (8.5-10.1); Chloride 104 mmol/L (98-107); Creatinine, Serum 0.96 mg/dL (0.55-1.02); EST Glomerular Filtration Rate 63 mL/min (>60); Est Glom Filt Rate - Afr Amer 76 mL/min (>60); Estimated Creatinine Clearance 57.61 ml/min; Glucose 157 mg/dL (74-106); Potassium 4.1 mmol/L (3.5-5.1); Sodium Level 138 mmol/L (136-145)
--- NOTE | 2019-11-20 16:08 | RAD_ITS ---
STUDY: X-RAY CHEST REASON FOR EXAM: Female, 59 years old. SOB TECHNIQUE: Single AP portable view of the chest. COMPARISON: 11/29/2017. FINDINGS: The lungs are clear and expanded. No pleural effusion. Mild chronic scarring in the left midlung. Normal size heart. Normal mediastinum and melinda. Normal visualized pulmonary arteries. Atherosclerotic calcification of the aortic arch. Normal visualized thoracic spine. Normal visualized ribs, clavicles, and shoulders. There is no demonstrated abnormality of the visualized soft tissue structures of the upper abdomen. RAD/Chest 1 View (Portable) IMPRESSION: No acute findings. Electronically Signed: Clair Thacker MD at 16:31 EDT Tel , Service support ,
[2019-11-20 16:14] LABS: BNP,B-Type NATRIURETIC PEPTIDE 153.8 pg/mL (0-100)
--- NOTE | 2019-11-20 17:03 | CT_ITS ---
STUDY: CTA CHEST REASON FOR EXAM: Female, 59 years old. SOB,HYPOXEMIA RADIATION DOSAGE (If Supplied By Facility): CTDIvol = ( 12.37 ) mGy, DLP = ( 487.08 ) mGycm TECHNIQUE: The examination was performed with the intravenous administration of 100 CC ISOVUE 370. Post-processing of the angiographic images was performed, with multiplanar reformation and 3D reconstruction. Individualized dose optimization techniques were used for this CT. COMPARISON: None. FINDINGS: The heart and pericardium are normal. The aorta is normal in caliber. No aneurysm or dissection. There is no mediastinal mass or adenopathy. There is no hilar or axillary adenopathy. There is no evidence of pulmonary embolus. There is no pleural effusion. There is no pulmonary consolidation. Diffuse mosaic perfusion. 3.2 cm right upper pole low-attenuation cyst. 1.3 cm left adrenal nodule, not characterized on this study. Visualized abdomen is unremarkable. Loss of height of the L1 vertebral body, age indeterminate. CT/CTA Chest W/WO Contrast IMPRESSION: 1. No pulmonary embolus or aortic dissection. 2. Mosaic perfusion of the lungs, likely due to small airways disease. 3. L1 compression, age indeterminate. 4. Left adrenal nodule, nonspecific. 5. Right upper pole cyst. Electronically Signed: Clair Thacker MD at 18:23 EDT Tel , Service support ,
[2019-11-20] MEDS: predniSONE 20 MG Tablet 40 MG PO (20:51)
== END 2019-11-20 20:56 | disposition home or self-care (01) ==
PROVIDERS: Emergency Provider Emergency Medicine; PCP Internal Medicine
DX: J44.1 Chronic obstructive pulmonary disease with (acute) exacerbation (principal); S80.12XA Contusion of left lower leg, initial encounter; E66.9 Obesity, unspecified; I25.10 Atherosclerotic heart disease of native coronary artery without angina pectoris; E11.9 Type 2 diabetes mellitus without complications; E78.5 Hyperlipidemia, unspecified; X58.XXXA Exposure to other specified factors, initial encounter; Z87.891 Personal history of nicotine dependence; Z95.5 Presence of coronary angioplasty implant and graft; Z79.84 Long term (current) use of oral hypoglycemic drugs
CPT/HCPCS: 71045; 71275; 80048; 83880; 84484; 85025; 93005; 93971; 94640; 96360; 96361; 99285; J7030; Q9967; A4216

== ENCOUNTER 2020-07-24 15:51 | Inpatient (IN) | payer MEDICAID, SELFPAY ==
[2020-06-04 13:25] VITALS: BMI 34.5
[2020-07-24] VITALS (10 sets, daily range): BP systolic 149–182; BP diastolic 63–90; PULSE 78–98; RESP 18–22; TEMP 36.4–37; O2SAT 90–98; BMI 32.5; BMI 32.6; BMI 36.3
--- NOTE | 2020-07-24 16:27 | RAD_ITS ---
STUDY: X-RAY CHEST REASON FOR EXAM: Female, 60 years old. Increased shortness of breath. TECHNIQUE: Single AP portable view of the chest. COMPARISON: 11/20/2019 FINDINGS: Poor inspiration with some bibasilar atelectasis. There is no demonstrated pleural abnormality. There is moderate cardiac enlargement. Normal mediastinum and melinda. Normal visualized pulmonary arteries. Normal visualized aortic arch and descending thoracic aorta. Normal visualized thoracic spine. Normal visualized ribs, clavicles, and shoulders. There is no demonstrated abnormality of the visualized soft tissue structures of the upper abdomen. RAD/Chest 1 View (Portable) IMPRESSION: Poor inspiration with some bibasilar atelectasis Electronically Signed: Junior Chambers MD at 17:36 EST Tel , Service support ,
--- NOTE | 2020-07-24 16:27 | EKG12_ITS ---
Test Reason : Blood Pressure : / mmHG Vent. Rate : 073 BPM Atrial Rate : 073 BPM P-R Int : 172 ms QRS Dur : 098 ms QT Int : 428 ms P-R-T Axes : 071 -54 029 degrees QTc Int : 471 ms Normal sinus rhythm Left axis deviation Anteroseptal infarct , age undetermined Abnormal ECG Confirmed by TESSA KAN, VISH ([id number]), senior technical editor JOSE GUADALUPE ALLEN ([id number]) on 07/27/2020 2:22:22 PM Referred By: JACQUES Confirmed By:VISH ZARATE MD
--- NOTE | 2020-07-24 16:29 | ED.VISSUMM ---
- ER Visit Summary Date of Service: 07/24/20 Chief Complaint: Shortness of breath History of Present Illness: The patient is a 60 F presenting with shortness of breath. Patient states this started on Monday. She states she started having symptoms of sinus congestion and rhinorrhea. She then developed productive cough and shortness of breath. She has had mild diarrhea. She complains of myalgias and mild headache. She has a home pulse ox which showed 80% on room air. She has not been tested for Covid. She has no sick contacts. She does not have home O2. She has history of COPD, CAD, hypertension, diabetes, hypercholesterolemia. Physical Examination: Vitals are stable. Patient is afebrile. Alert no acute distress. HEENT exam is unremarkable. Neck is supple. Lungs are diminished bilaterally. Heart is regular rate and rhythm. Abdomen is soft nontender nondistended. Extremities are unremarkable. Skin is warm and dry. No focal neurologic deficit. Remainder of exam is unremarkable. Emergency Department Course and Treatment: Patient was given albuterol, Atrovent aerosols. EKG is sinus rhythm rate of 73 with no acute ischemic changes. Chest x-ray shows atelectasis. CBC shows white count 14.3, hemoglobin 9.6. Chemistries show sodium 118, glucose 133. Troponin is negative. D-dimer elevated at 0.54. Covid is negative. Patient was given Solu-Medrol, IV fluids. Due to elevated D-dimer CTA chest was obtained and shows no demonstrated PE, or thoracic aortic aneurysm or dissection. However, contrast bolus within the pulmonary arteries is not optimal. New since the previous study is a large subcarinal mass extending into the right hilar region concerning for primary neoplastic process. It measures approximately 4.9 x 2.8 x 5 cm. There is associated suspicious right perihilar adenopathy, nodules along the pericardium adjacent to the ascending thoracic aorta and enlarged mediastinal lymph nodes. Diffuse groundglass opacifications in both lung blackwell suggests active alveolitis. Free flowing right pleural effusion with bibasilar atelectasis. Degenerative bony change. Fatty infiltration of the liver with diffuse hepatomegaly. Simple right renal cyst, no specific follow-up needed. Her pulse ox is 88% on room air. She was put on 2 L nasal cannula. Discussed with hospitalist for admission. Disposition: Admission Impression: COPD exacerbation, new subcarinal mass, hypoxia, hyponatremia This note was generated with [email or web address] dictation software. It may contain incorrect words, spelling, and punctuation that were not noted in review of the chart prior to signing ED Disposition - Plan for ED Patient: Referrals: Nataly Aguilar MD [Primary Care Provider] -
[2020-07-24] MEDS: Albuterol 2.5 MG/3 ML VIAL.NEB. INHALATION ×3 (16:45)
[2020-07-24] MEDS: Ipratropium/Albuterol Sulfate 3 ML AMPUL.NEB INHALATION ×2 (16:45→23:43)
[2020-07-24 17:10] LABS: Absolute Lymphocyte Count 1.22 X10^3/uL (0.83-4.51); Absolute Neutrophil Count 11.2 X10^3/uL (2.0-7.7); Basophil# 0.04 X10^3/uL; Basophil% 0.3 % (0-1); Eosinophil# 0.05 X10^3/uL; Eosinophils% 0.4 % (0-5); Hematocrit 34.4 % (37-47); Hemoglobin 11.6 g/dL (12.0-15.0); Lymphocyte # 1.22 X10^3/ul (4.0); Lymphocyte % 8.6 % (19-41); Mean Corp Hgb Conc 33.7 g/dL (32-36); Mean Corpuscular Hgb 27.8 pg (27.0-32.0); Mean Corpuscular Volume 82.5 fL (81-99); Mean Platelet Vol. 10.1 fl (6.2-12.0); Monocyte# 1.56 X10^3/uL; Monocyte% 10.9 % (0-10); NRBC Flagged by Analyzer 0 % (0-5); Neutrophil # 11.22 X10^3/uL (2.7-7.7); Neutrophil % 78.6 % (47-70); POSITIVE DIFFERENTIAL YES; Platelet Count 318 K/mm3 (150-450); RBC Distribution Width CV 13.3 % (11.6-14.6); RBC Distribution Width SD 39.8 fl (35.1-43.9); Red Blood Count 4.17 M/mm3 (4.2-5.4); White Blood Count 14.3 K/mm3 (4.4-11.0)
[2020-07-24 17:24] LABS: D-Dimer Quantitative (DVT/PE) 0.54 FEU/ug/m (0.27-0.49)
--- NOTE | 2020-07-24 17:24 | CT_ITS ---
STUDY: CTA CHEST REASON FOR EXAM: Female, 60 years old. INCREASED SHORTNESS OF BREATH/ELEVATED D-DIMER RADIATION DOSAGE (If Supplied By Facility): CTDIvol = ( 13.75 ) mGy, DLP = ( 497.08 ) mGycm TECHNIQUE: The examination was performed with the intravenous administration of IV 100mL Isovue-370. Post-processing of the angiographic images was performed, with multiplanar reformation and 3D reconstruction. Individualized dose optimization techniques were used for this CT. COMPARISON: 11/20/2019 FINDINGS: There is limited enhancement of the main pulmonary artery and right and left pulmonary arteries. There is limited enhancement of the bilateral peripheral pulmonary arteries. There is no demonstrated pulmonary embolism. Normal thoracic aorta and visualized great vessels. There is no demonstrated aortic dissection. Normal heart and pericardium. There are calcifications of the coronary arteries. There are scattered subcentimeter axillary lymph nodes. There are now suspiciously enlarged mediastinal lymph nodes measuring up to 1.5 cm short axis dimension especially in the AP window and precarinal regions. There is a suspicious 1.9 x 1.5 cm nodule adjacent to the ascending aorta. There is a mass contiguous with the right hilar region extending into the subcarinal which is concerning for a neoplastic process or diffuse metastasis. This represents a significant change in findings since the previous study. There is also a suspicious mass along the pericardium in the right lower lobe on axial image 85 measuring 3.2 x 2.3 cm. There is an enlarging right pleural effusion. Lung windows show ground glass opacifications throughout both hemithoraces. There is nonspecific pleural thickening and atelectasis in both lung bases. There are degenerative changes of thoracic spine. Limited cuts through the upper abdomen show diffuse fatty infiltration of the liver which is also enlarged. There is a simple right renal cyst. CT/CTA Chest W/WO Contrast IMPRESSION: No demonstrated PE, or thoracic aortic aneurysm or dissection. However, contrast bolus within the pulmonary arteries is not optimal. New since the previous study is a large subcarinal mass extending into the right hilar region concerning for primary neoplastic process. It measures approximately 4.9 x 2.8 x 5 cm. There is associated suspicious right perihilar adenopathy, nodules along the pericardium adjacent to the ascending thoracic aorta and enlarged mediastinal lymph nodes. Diffuse groundglass opacifications in both lung blackwell suggests active alveolitis. Free flowing right pleural effusion with bibasilar atelectasis Degenerative bony changes Fatty infiltration of the liver with diffuse hepatomegaly Simple right renal cyst, no specific follow-up needed Electronically Signed: Norberto Rushing MD at 18:52 EST , Service support ,
[2020-07-24 17:31] LABS: ALB/GLOB Ratio 0.9 RATIO (0.9-2.4); AST(SGOT) 28 U/L (15-37); Alanine Aminotransfer ALT/SGPT 34 U/L (13-56); Albumin, Serum 3.3 g/dL (3.2-5.0); Alkaline Phosphatase 59 U/L (45-117); Anion Gap 8 (5-15); BUN 11 mg/dL (7-18); BUN/Creat Ratio 15.3 RATIO (10-20); Calcium,Total 8.8 mg/dL (8.5-10.1); Chloride 84 mmol/L (98-107); Creatinine, Serum 0.72 mg/dL (0.55-1.02); EST Glomerular Filtration Rate 87 mL/min (>60); Est Glom Filt Rate - Afr Amer 106 mL/min (>60); Estimated Creatinine Clearance 69.96 ml/min; Globulin 3.5 g/dL (2.2-4.2); Glucose 133 mg/dL (74-106); Potassium 4.4 mmol/L (3.5-5.1); Protein, Total 6.8 g/dL (6.4-8.2); Sodium Level 118 mmol/L (136-145)
[2020-07-24 17:38] LABS: Differential Indicated SCAN CRITERIA MET
[2020-07-24 18:27] LABS: Anisocytosis RARE; Platelet Estimate ADEQUATE (ADEQ); Red Cell Morphology N CHROM NORMAL (NORM C&C)
[2020-07-24] MEDS: MethylPREDNISolone 125 MG/2 ML Vial IV (19:11)
--- NOTE | 2020-07-24 19:44 | HP.PCM_ITS ---
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 Diabetes mellitus complication status: with hypergly cemia Qualified Code(s): E11.65 - Type 2 diabetes mellitus with hyperglycemia (4) Presence of stent in coronary artery Status: Chronic Comment: PTCA/stent x2 to prox LAD 05/2011 (5) Atherosclerosis of [place] coronary artery of [place] heart without angina pectoris Status: Chronic (6) Angina pectoris Status: Resolved (7) Abnormal cardiovascular stress test Status: Resolved (8) Hyperlipidemia Status: Chronic Qualifiers: Hyperlipidemia type: unspecified Qualified Code(s): E78.5 - Hyperlipidemia, unspecified (9) Type II diabetes mellitus Status: Chronic (10) Lung neoplasm Status: Acute (11) COPD exacerbation Status: Chronic History of Present Illness Date of Admission: 07/24/20 Chief Complaint: Dyspnea on exertion The patient is a 60 year old F with a significant show COPD; and diabetes mellitus who presents emergency department with dyspnea on exertion. Reportedly her home oxygen on mild ambulation was 80%. Associated with her symptoms is hypoxia; productive cough of greenish-yellowish sputum; rhinorrhea and postnasal drip. Also reportedly she was wheezing. Past Medical History Past Medical History (Chronic Problems): Chronic Problems (Last Reviewed 06/04/20 @ 14:[address] Rickey Rubio MD) COPD exacerbation (Chronic) Obesity (Chronic) Diabetic polyneuropathy associated with type 2 diabetes mellitus (Chronic) Diabetes (Chronic) Presence of stent in coronary artery (Chronic ~05/2011) PTCA/stent x2 to prox LAD 05/2011 Atherosclerosis of [place] coronary artery of [place] heart without angina pectoris (Chronic) Hyperlipidemia (Chronic) Type II diabetes mellitus (Chronic) Medical History: Medical History (Last Reviewed 06/04/20 @ 14:[address] Rickey Rubio MD) Presence of stent in coronary artery (Chronic) Onset Date: ~05/2011 Z95.5 PTCA/stent x2 to prox LAD 05/2011 Atherosclerosis of [place] coronary artery of [place] heart without angina pectoris (Chronic) I25.10 Angina pectoris (Resolved) I20.9 Abnormal cardiovascular stress test (Resolved) R94.39 Hyperlipidemia (Chronic) E78.5 Type II diabetes mellitus (Chronic) E11.9 Hiatal hernia K44.9 Allergies No Known Allergies Allergy (Verified 07/24/20 15:54) Home Medications: Ambulatory Orders Medication Instructions Recorded ALPRAZolam [Xanax] 0.25 mg PO BID PRN 07/03/13 Aspirin 325 mg PO DAILY@0800 07/03/13 Lisinopril [Zestril] 5 mg PO DAILY 07/03/13 Nitroglycerin (INPATIENT USE) 0.4 mg SUBLINGUAL Q5M PRN 07/03/13 [Nitrostat] fluoxetine 40 mg capsule 40 mg PO DAILY 12/25/17 metoprolol tartrate 25 mg tablet 25 mg PO BID #60 tab 08/14/19 Albuterol Sulfate [Albuterol 2 puff INHALATION Q4H PRN PRN 11/20/19 Sulfate HFA] Dicyclomine HCl [Bentyl] 10 - 20 mg PO TID PRN PRN 11/20/19 Doxycycline 100 mg PO BID #20 cap 11/20/19 Metformin HCl 1,000 mg PO BID 11/20/19 Pantoprazole Sodium [Protonix] 20 mg PO DAILY 11/20/19 busPIRone [Buspar] 5 mg PO TID 11/20/19 atorvastatin 40 mg tablet 40 mg PO QHS #90 tab 12/23/19 budesonide-formoterol HFA 160 2 puff INHALATION BID 03/09/20 mcg-4.5 mcg/actuation aerosol inhaler meclizine 25 mg tablet 25 mg PO DAILY PRN 03/09/20 dulaglutide 1.5 mg/0.5 mL 1.5 mg SC WE #2 ml 06/04/20 subcutaneous pen injector insulin aspart U-100 100 unit/mL 20 unit SC TID #18 ml 06/04/20 (3 mL) subcutaneous pen Insulin Glargine,Hum.rec.anlog 25 unit SC QAM 07/24/20 [Lantus Solostar U-100 Insulin] pen needle, diabetic 32 gauge x See Rx Instructions .ROUTE 07/24/20 .MEDSUPPLY #150 ea Surgical History: Surgical History (Last Reviewed 07/25/20 @ 00:[address] Max Lynch MD) Presence of coronary angioplasty implant and graft Z95.5 H/O arthroscopic knee surgery Z98.890 H/O elbow surgery Z98.890 History of carpal tunnel surgery Z98.890 History of cholecystectomy Z90.49 History of lumbar surgery Z98.890 History of tubal ligation Z98.51 Surgical History: angioplasty, cholecystectomy, - - History of back surgery w/ hardware w/ childhood trauma, carpal tunnel BL, L knee arthroscopic surgery, BLTL, L elbow surgery. 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 Action required.) Father Myocardial infarction Paternal Family History: Family History (This Medical Record has been edited. Action required.) Father Myocardial infarction History Items: Heart Disease - Father w/ massive fatal RI/CAD 56 y/o, EtOH abuser also. Review of Systems Constitutional: Denies: Chills, Fever, Weight Change HEENT: Denies: Head Aches, Sinus Congestion, Sinus Drainage Cardiovascular: Denies: Chest Pain, Palpitations Respiratory: Reports: Cough, Shortness of breath upon exertion, Sputum production. Denies: Shortness of breath at rest Gastrointestinal: Denies: Abdominal Pain, Nausea, Vomiting Genitourinary: Denies: Dysuria Musculoskeletal: Denies: Joint Pain, Joint Tenderness Skin: Denies: Rash, Wounds Neurological: Denies: Numbness, Tingling, Focal weakness Psychiatric: Denies: Anxiety, Depression, Homicidal Ideations, Suicidal Ideations Hematologic/ Lymphatic: Denies: Easy Bruising, Easy Bleeding VTE Information - Inpt Only VTE Present on Admission: No VTE Mechan Device Prophylaxis: None VTE Pharm Prophylaxis ordered?: Yes Patient Problems: Active and Suspected Problems (Last Reviewed 06/04/20 @ 14:[address] Rickey Rubio MD) Lung neoplasm (Acute) - Physical Exam Vitals/I&O's: Vital Signs Temp Pulse Resp BP Pulse Ox 98.1 F 93 21 H 153/63 H 98 07/24/20 19:00 07/24/20 19:00 07/24/20 19:00 07/24/20 19:00 07/24/20 19:00 Oxygen Flow Rate (L/min) 3 Oxygen Delivery Method Nasal Cannula Weight: 86.183 kg Body Mass Index (BMI) 32.5 Intake and Output for Last 24 Hours 07/22/20 07/23/20 07/24/20 23:59 23:59 23:59 Intake Total 500 / 500 Balance 500 / 500 General: Alert, Oriented x3, Cooperative HEENT: Atraumatic, PERRLA, EOMI, Normocephalic Neck: Supple, No JVD, Negative Carotid Bruits Lungs: Clear to auscultation, Normal air movement Cardiovascular: Regular rate, Normal S1, Normal S2, No murmurs Abdomen: Bowel Sounds Present, Soft, Non Tender Extremities: No edema, Capillary Refill Less than 3 Seconds Skin: No rashes, No breakdown Musculoskeletal: No Tenderness to Palpation of Joints or Extremities Neurological: Cranial nerves II-XII grossly intact Psych/Mental Status: Normal Affect, Appropriate Microbiology Past 72 Hours 07/24/20 16:34 Mucosa - Nose SARS-CoV-2 Antigen (Rapid) - Final Laboratory Results 07/24/20 16:05: WBC 14.3 H, RBC 4.17 L, Hgb 11.6 L, Hct 34.4 L, MCV 82.5, MCH 27.8, MCHC 33.7, RDW Std Deviation 39.8, RDW Coeff of [place] 13.3, Plt Count 318, MPV 10.1, Immature Gran % (Auto) 1.200 H, Neut % (Auto) 78.6 H, Lymph % (Auto) 8.6 L, [place] % (Auto) 10.9 H, Eos % (Auto) 0.4, Baso % (Auto) 0.3, Absolute Neuts (auto) 11.2 H, Absolute Lymphs (auto) 1.22, Nucleated RBC % 0, Differential Comm ent SEE COMMENT, Diff Path Review May foll, Platelet Estimate ADEQUATE, RBC Morphology N CHROM, Anisocytosis RARE 07/24/20 16:05: D-Dimer Quant (PE/DVT) 0.54 H* 07/24/20 16:05: Sodium 118 L*, Potassium 4.4, Chloride 84 L, Carbon Dioxide 26.0, Anion Gap 8, BUN 11, Creatinine 0.72, Estim Creat Clear Calc 69.96, Est GFR (MDRD) Af Amer 106, Est GFR (MDRD) Non-Af 87, BUN/Creatinine Ratio 15.3, Glucose 133 H, Calcium 8.8, Total Bilirubin 0.40, AST 28, ALT 34, Alkaline Phosphatase 59, Troponin I < 0.015, Total Protein 6.8, Albumin 3.3, Globulin 3.5, Albumin/Globulin Ratio 0.9 07/24/20 : Lactic Acid Pending Current Medications Sodium Chloride (0.9% Saline Lock 10 Ml Syringe) 10 - 40 ml IV UD PRN PRN Reason: SALINE FLUSH Assessment/Plan All Active Problems (Last Reviewed 06/04/20 @ 14:[address] Rickey Rubio MD) Lung neoplasm (Acute) Angina pectoris (Resolved) Abnormal cardiovascular stress test (Resolved) The patient is a 60 year old F with a significant show COPD; and diabetes mellitus who presents emergency department with dyspnea on exertion; hypoxemia ; productive cough of greenish-yellowish sputum; rhinorrhea; postnasal drip; wheezing; and found to have leukocytosis and hyponatremia. Lung mass Following elevated D-dimer chest CTA was obtained which was remarkable for lung mass. 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 Treatment of hyponatremia and COPD as below. On home aspirin 325 mg daily for coronary stents. De-escalate to 81 mg for now. Laboratory Worker consult. COPD At the time of examination patient was actually moving air in the lungs. However reportedly she had wheezes. She received steroid at emergency department which might have improved her wheezing dramatically. Aftermath of a controlled her wheezing. Radiologist impression of chest x-ray: Poor inspiration with some bibasilar atelectasis. Actual chest x-ray images independently reviewed. I agree radiologist interpretation. Chest CTA with right hilar mass and associated. He will adenopathy and nodules along the pericardium as well as enlarged mediastinal lymph nodes. Diffuse groundglass opacifications in both lung field suggestive of active colitis. Pleural effusion with bibasilar atelectasis. Scheduled DuoNeb Albuterol as needed Solu-Medrol ordered. Patient with leukocytosis and change in color of sputum. Azithromycin ordered. Continue oxygen supplementation. Monitor BMP and CBC Viral syndrome COVID-19 test was negative. Influenza screen ordered. Flonase and expectorant ordered. Acute hypoxemic respiratory insufficiency Likely secondary to a pulmonary mass and COPD Supplemental oxygen as necessary. Management of COPD and lung mass as above. Acute hyponatremia slightly department labs showed sodium of 118. 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 Gentle normal saline hydration. Free water restrictions. Check urine sodium; urine osmolality and serum osmolality. Trend BMP. DVT prophylaxis Subcutaneous Lovenox ordered. Inpatient E&M: [id number] Init Hosp L3
[2020-07-24 19:50] LABS: Lactic Acid 1.9 mmol/L (0.4-1.9)
[2020-07-24] MEDS: 0.9% Saline Lock 10 ML Syringe IV (21:22)
[2020-07-24] MEDS: 0.9% Normal Saline 1,000 ML 100 ML IV (21:23)
[2020-07-24 22:34] LABS: Osmolality, Serum 251 mOsm/KG (280-301)
[2020-07-24 22:38] LABS: BNP,B-Type NATRIURETIC PEPTIDE 211.8 pg/mL (0-100)
[2020-07-24] MEDS: Fluticasone 0.05% 1 SPRAY NASAL.SRY 2 SPRAY NASAL (22:39)
[2020-07-24] MEDS: guaiFENesin 1,200 MG Tablet 1200 MG PO (22:39)
[2020-07-24] MEDS: busPIRone 5 MG Tablet PO (22:43)
[2020-07-24] MEDS: Insulin Lispro 100 UNIT/ML INSULN.PEN SC (22:43)
[2020-07-24] MEDS: Metoprolol Tartrate 25 MG Tablet PO (22:44)
[2020-07-24] MEDS: Atorvastatin Calcium 40 MG Tablet PO (22:44)
[2020-07-24 22:45] LABS: Bedside Glucose 259 mg/dL (70-110)
[2020-07-24] MEDS: Azithromycin 250 MG Tablet 500 MG PO (23:07)
[2020-07-24 23:26] LABS: Urine Sodium 96 mmol/L (Not Establ.)
[2020-07-25] VITALS (14 sets, daily range): BP systolic 138–167; BP diastolic 66–85; PULSE 68–88; RESP 16–20; TEMP 36.3–36.9; O2SAT 93–97
[2020-07-25 00:27] LABS: Osmolality, Urine 377 mOsm/KG
[2020-07-25] MEDS: Ipratropium/Albuterol Sulfate 3 ML AMPUL.NEB INHALATION ×5 (04:20→19:55)
[2020-07-25] MEDS: busPIRone 5 MG Tablet PO ×3 (05:20→21:41)
[2020-07-25 06:12] LABS: Absolute Lymphocyte Count 0.68 X10^3/uL (0.83-4.51); Absolute Neutrophil Count 11.8 X10^3/uL (2.0-7.7); Basophil# 0.02 X10^3/uL; Basophil% 0.2 % (0-1); Eosinophil# 0.03 X10^3/uL; Eosinophils% 0.2 % (0-5); Hematocrit 32.4 % (37-47); Hemoglobin 11.2 g/dL (12.0-15.0); Lymphocyte # 0.68 X10^3/ul (4.0); Lymphocyte % 5.2 % (19-41); Mean Corp Hgb Conc 34.6 g/dL (32-36); Mean Corpuscular Hgb 28.1 pg (27.0-32.0); Mean Corpuscular Volume 81.2 fL (81-99); Monocyte# 0.38 X10^3/uL; Monocyte% 2.9 % (0-10); NRBC Flagged by Analyzer 0 % (0-5); Neutrophil % 90.4 % (47-70); Platelet Count 292 K/mm3 (150-450); RBC Distribution Width CV 13.2 % (11.6-14.6); RBC Distribution Width SD 38.5 fl (35.1-43.9); Red Blood Count 3.99 M/mm3 (4.2-5.4); White Blood Count 13.1 K/mm3 (4.4-11.0)
[2020-07-25] MEDS: 0.9% Normal Saline 1,000 ML 100 ML IV (06:28)
[2020-07-25] MEDS: Insulin Lispro 100 UNIT/ML INSULN.PEN SC ×4 (06:31→21:40)
[2020-07-25 06:40] LABS: Anion Gap 8 (5-15); BUN 9 mg/dL (7-18); BUN/Creat Ratio 13.6 RATIO (10-20); Calcium,Total 8.9 mg/dL (8.5-10.1); Chloride 83 mmol/L (98-107); Creatinine, Serum 0.66 mg/dL (0.55-1.02); EST Glomerular Filtration Rate 96 mL/min (>60); Est Glom Filt Rate - Afr Amer 116 mL/min (>60); Estimated Creatinine Clearance 76.32 ml/min; Glucose 242 mg/dL (74-106); Potassium 4.4 mmol/L (3.5-5.1); Sodium Level 117 mmol/L (136-145)
[2020-07-25 06:41] LABS: Bedside Glucose 241 mg/dL (70-110)
[2020-07-25 08:13] LABS: Thyroid Stim Hormone (TSH) 0.21 uIU/mL (0.358-3.74)
--- NOTE | 2020-07-25 09:21 | CON.PCM_ITS ---
Problem List (1) Mediastinal mass Status: Acute (2) COPD exacerbation Status: Chronic (3) Obesity Status: Chronic Qualifiers: Obesity type: due to excess calories Obesity classification: adult class 1 (BMI 30 - 34.9) Serious obesity comorbidity presence: with serious comorbidity Body mass index: BMI 34.0-34.9 Qualified Code(s): E66.09 - Other obesity due to excess calories; Z68.34 - Body mass index [BMI] 34.0-34.9, adult (4) Diabetic polyneuropathy associated with type 2 diabetes mellitus Status: Chronic (5) Presence of stent in coronary artery Status: Chronic Comment: PTCA/stent x2 to prox LAD 05/2011 (6) Atherosclerosis of [place] coronary artery of [place] heart without angina pectoris Status: Chronic (7) Hyperlipidemia Status: Chronic Qualifiers: Hyperlipidemia type: unspecified Qualified Code(s): E78.5 - Hyperlipidemia, unspecified Reason for Consult Date of Consultation: 07/25/20 Reason for Consultation: COPD exacerbation/mediastinal mass History of Present Illness: The patient is a 60 year old F, with past medical history listed below, who presented to [facility] on 07/24/2020 secondary to progressive shortness of breath. Patient had reported that she started to develop sinus type symptoms over the previous week. Patient states that these normally resolve spontaneously, so she did not seek medical attention. However, she started to have a cough productive of thick green to yellow sputum. Patient also had progressive shortness of breath. Patient had also reported some diarrhea without antibiotics. Patient had had some myalgias and headache. Patient did have a pulse oximeter at home and was noted to be 80% on room air. Patient presented to the ER for concerns of possible Covid 19. Patient does ca rry a diagnosis of COPD. In the ER, patient was noted to be hypoxic. Patient was also given aerosols with significant improvement in overall dyspnea. Chest x-ray had shown some atelectasis and laboratory work-up showed a leukocytosis of 14.3, sodium of 118 and a D-dimer of 0.54. Patient did have a CTA of the chest showing no pulmonary emboli, but did have a 4.9 x 2.8 x 5 cm hilar mass. Patient had also noted to have diffuse groundglass opacities throughout both lung blackwell. Saturations did improve with bronchodilators, but patient was admitted to the floor for further evaluation and optimization. Patient reports a 30+ pack year smoking history, but is never seen a railroad firer or had pulmonary function test previously. Patient did have a CT scan about 6 months ago that she had secondary to similar type presentation. No mediastinal mass was noted on that evaluation. Patient is not reporting any significant weight gain and is actually had some dietary modification secondary to uncontrolled diabetes. Patient states she has gained 12 pounds and was surprised. Patient did report that she had had some lower extremity edema over the previous 2 to 3 days, which is very odd for her subjectively. Patient has not reported any hemoptysis or chest pain. Review of systems otherwise negative from a constitutional, HEENT, respiratory, cardiovascular, GI, genitourinary, musculoskeletal, skin, neurologic, psychiatric and hematologic system unless stated above. Past Medical History Past Medical History (Chronic Problems): Chronic Problems (Last Reviewed 06/04/20 @ 14:[address] Rickey Rubio MD) COPD exacerbation (Chronic) Obesity (Chronic) Diabetic polyneuropathy associated with type 2 diabetes mellitus (Chronic) Diabetes (Chronic) Presence of stent in coronary artery (Chronic ~05/2011) PTCA/stent x2 to prox LAD 05/2011 Atherosclerosis of [place] coronary artery of [place] heart without angina pectoris (Chronic) Hyperlipidemia (Chronic) Type II diabetes mellitus (Chronic) Medical History: Medical History (Last Reviewed 06/04/20 @ 14:[address] Rickey Rubio MD) Presence of stent in coronary artery (Chronic) Onset Date: ~05/2011 Z95.5 PTCA/stent x2 to prox LAD 05/2011 Atherosclerosis of [place] coronary artery of [place] heart without angina pectoris (Chronic) I25.10 Angina pectoris (Resolved) I20.9 Abnormal cardiovascular stress test (Resolved) R94.39 Hyperlipidemia (Chronic) E78.5 Type II diabetes mellitus (Chronic) E11.9 Hiatal hernia K44.9 Allergies No Known Allergies Allergy (Verified 07/24/20 15:54) Home Medications: Ambulatory Orders Medication Instructions Recorded ALPRAZolam [Xanax] 0.25 mg PO BID PRN 07/03/13 Aspirin 325 mg PO DAILY@0800 07/03/13 Lisinopril [Zestril] 5 mg PO DAILY 07/03/13 Nitroglycerin (INPATIENT USE) 0.4 mg SUBLINGUAL Q5M PRN 07/03/13 [Nitrostat] fluoxetine 40 mg capsule 40 mg PO DAILY 12/25/17 metoprolol tartrate 25 mg tablet 25 mg PO BID #60 tab 08/14/19 Albuterol Sulfate [Albuterol 2 puff INHALATION Q4H PRN PRN 11/20/19 Sulfate HFA] Dicyclomine HCl [Bentyl] 10 - 20 mg PO TID PRN PRN 11/20/19 Doxycycline 100 mg PO BID #20 cap 11/20/19 Metformin HCl 1,000 mg PO BID 11/20/19 Pantoprazole Sodium [Protonix] 20 mg PO DAILY 11/20/19 busPIRone [Buspar] 5 mg PO TID 11/20/19 atorvastatin 40 mg tablet 40 mg PO QHS #90 tab 12/23/19 budesonide-formoterol HFA 160 2 puff INHALATION BID 03/09/20 mcg-4.5 mcg/actuation aerosol inhaler meclizine 25 mg tablet 25 mg PO DAILY PRN 03/09/20 dulaglutide 1.5 mg/0.5 mL 1.5 mg SC WE #2 ml 06/04/20 subcutaneous pen injector insulin aspart U-100 100 unit/mL 20 unit SC TID #18 ml 06/04/20 (3 mL) subcutaneous pen Insulin Glargine,Hum.rec.anlog 25 unit SC QAM 07/24/20 [Lantus Solostar U-100 Insulin] pen needle, diabetic 32 gauge x See Rx Instructions .ROUTE 07/24/2032 .MEDSUPPLY #150 ea Surgical History: Surgical History (Last Reviewed 07/25/20 @ 00:[address] Max Lynch MD) Presence of coronary angioplasty implant and graft Z95.5 H/O arthroscopic knee surgery Z98.890 H/O elbow surgery Z98.890 History of carpal tunnel surgery Z98.890 History of cholecystectomy Z90.49 History of lumbar surgery Z98.890 History of tubal ligation Z98.51 Surgical History: angioplasty, cholecystectomy, - - History of back surgery w/ hardware w/ childhood trauma, carpal tunnel BL, L knee arthroscopic surgery, BLTL, L elbow surgery. 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 Action required.) Father Myocardial infarction History Items: No pertinent history Paternal Family History: Family History (This Medical Record has been edited. Action required.) Father Myocardial infarction History Items: Heart Disease - Father w/ massive fatal LA/CAD 56 y/o, EtOH abuser also. Review of Systems Comment: See HPI Patient Problems: Active and Suspected Problems (Last Reviewed 06/04/20 @ 14:[address] Rickey Rubio MD) Lung neoplasm (Acute) Mediastinal mass (Acute) Objective: All imaging was personally reviewed. CT scan from 6 months ago was compared to current CT. There does appear to be some mediastinal lymphadenopathy on previous CT scan that has enlarged. Patient does have scattered groundglass opacity, but no signs of postobstructive phenomenon at this time. Patient does have some emphysematous changes. No pulmonary function tests are available for review. Patient did have a heart catheterization completed in 2018 showing an EF of 50% with elevated left end-diastolic pressure, but no active intervention was required. - Physical Exam Vitals/I&O's: Vital Signs Temp Pulse Resp BP Pulse Ox 36.9 C 79 18 138/66 H 96 07/25/20 02:55 07/25/20 07:06 07/25/20 07:06 07/25/20 02:55 07/25/20 07:06 Oxygen Flow Rate (L/min) 3 Oxygen Delivery Method Nasal Cannula Weight: 96.2 kg Body Mass Index (BMI) 36.3 Intake and Output for Last 24 Hours 07/23/20 07/24/20 07/25/20 23:59 23:59 23:59 Intake Total 500 / 1100 1850.00 / 1850.00 Output Total 2000 / 1999 Balance 500 / 600 -150.00 / -150.00 General: Alert, Oriented x3, Cooperative, No apparent distress, - - Obese. No conversational dyspnea HEENT: Atraumatic, PERRLA, EOMI, Normocephalic, - - No scleral icterus or injection noted Oral: Moist Mucosa, No Gingival or Mucosal Lesions/ Ulcerations, - - Crowded posterior pharynx Neck: Supple, No Nodes, Trachea Midline, Thyroid Normal Size and Texture, JVD, Right Lungs: No rhonchi, No rales, Diminished, Wheezes, - - Symmetric expansion Cardiovascular: Regular rate, Regular Rhythm, Normal S1, Normal S2, No murmurs, No rub noted, No Gallop Abdomen: Bowel Sounds Present, Soft, Non Tender, Non-Distended, Obese Extremities: No clubbing, No cyanosis, Edema - 1+ lower extremity Skin: No rashes, No breakdown Musculoskeletal: No Tenderness to Palpation of Joints or Extremities Lymphatic: No Cervical, Supraclavicular, or Inguinal Adenopathy Neurological: Cranial nerves II-XII grossly intact, Neuro grossly intact, Motor Exam 5/5 strength throughout Psych/Mental Status: Alert and oriented to time, place, person, mood and affect Microbiology Past 72 Hours 07/24/20 23:35 Mucosa - Nasopharyngeal Influenza Types A,B Direct FA (ARLEEN) - Final 07/24/20 16:34 Mucosa - Nose SARS-CoV-2 Antigen (Rapid) - Final Laboratory Results 07/24/20 16:05: WBC 14.3 H, RBC 4.17 L, Hgb 11.6 L, Hct 34.4 L, MCV 82.5, MCH 27.8, MCHC 33.7, RDW Std Deviation 39.8, RDW Coeff of [place] 13.3, Plt Count 318, MPV 10.1, Immature Gran % (Auto) 1.200 H, Neut % (Auto) 78.6 H, Lymph % (Auto) 8.6 L, [place] % (Auto) 10.9 H, Eos % (Auto) 0.4, Baso % (Auto) 0.3, Absolute Neuts (auto) 11.2 H, Absolute Lymphs (auto) 1.22, Nucleated RBC % 0, Differential Comment SEE COMMENT, Diff Path Review May foll, Platelet Estimate ADEQUATE, RBC Morphology N CHROM, Anisocytosis RARE 07/24/20 16:05: D-Dimer Quant (PE/DVT) 0.54 H* 07/24/20 16:05: Sodium 118 L*, Potassium 4.4, Chloride 84 L, Carbon Dioxide 26.0, Anion Gap 8, BUN 11, Creatinine 0.72, Estim Creat Clear Calc 69.96, Est GFR (MDRD) Af Amer 106, Est GFR (MDRD) Non-Af 87, BUN/Creatinine Ratio 15.3, Glucose 133 H, Calcium 8.8, Total Bilirubin 0.40, AST 28, ALT 34, Alkaline Phosphatase 59, Troponin I < 0.015, Total Protein 6.8, Albumin 3.3, Globulin 3.5, Albumin/Globulin Ratio 0.9 07/24/20 16:05: B-Natriuretic Peptide 211.8 H 07/24/20 21:53: Serum Osmolality 251 L 07/24/20 22:38: POC Glucose 259 H 07/24/20 23:00: Urine Osmolality 377 07/24/20 23:00: Ur Random Sodium 96 07/24/20 : Lactic Acid 1.9 07/25/20 05:35: WBC 13.1 H, RBC 3.99 L, Hgb 11.2 L, Hct 32.4 L, MCV 81.2, MCH 28.1, MCHC 34.6, RDW Std Deviation 38.5, RDW Coeff of [place] 13.2, Plt Count 292, MPV 10.0, Immature Gran % (Auto) 1.100 H, Neut % (Auto) 90.4 H, Lymph % (Auto) 5.2 L, [place] % (Auto) 2.9, Eos % (Auto) 0.2, Baso % (Auto) 0.2, Absolute Neuts (auto) 11.8 H, Absolute Lymphs (auto) 0.68 L, Nucleated RBC % 0 07/25/20 05:35: Sodium 117 L*, Potassium 4.4, Chloride 83 L, Carbon Dioxide 26.0, Anion Gap 8, BUN 9, Creatinine 0.66, Estim Creat Clear Calc 76.32, Est GFR (MDRD) Af Amer 116, Est GFR (MDRD) Non-Af 96, BUN/Creatinine Ratio 13.6, Glucose 242 H, Calcium 8.9 07/25/20 05:35: TSH 0.21 L 07/25/20 06:30: POC Glucose 241 H 07/25/20 07:56: Cortisol Pending Current Medications Acetaminophen (Acetaminophen 325 Mg Tablet) 650 mg PO Q6H PRN PRN PRN Reason: Pain Score 1-10/Temp > 100.7 F Albuterol Sulfate (Albuterol 2.5 Mg/3 Ml Vial.Neb.) 2.5 mg INHALATION Q2H PRN PRN PRN Reason: Shortness of Breath/Wheezing Albuterol/Ipratropium (Ipratropium/Albuterol Sulfate 3 Ml Ampul.Neb) 3 ml INHALATION Q4HWA.RT [facility] Last Admin: 07/25/20 07:06 Dose: 3 ml Documented by: Alprazolam (Alprazolam 0.25 Mg Tablet) 0.25 mg PO BID PRN PRN PRN Reason: ANXIETY Aspirin (Aspirin 81 Mg Tab.Chew) 81 mg PO DAILYCM [facility] Atorvastatin Calcium (Atorvastatin Calcium 40 Mg Tablet) 40 mg PO QHS [facility] Last Admin: 07/24/20 22:44 Dose: 40 mg Documented by: Buspirone HCl (Buspirone 5 Mg Tablet) 5 mg PO TID [facility] Last Admin: 07/25/20 05:20 Dose: 5 mg Documented by: Dextrose (Dextrose 50%-Water 25 Gm/50 Ml Disp.Syrin) 0 gm IV X1 PRN; Protocol PRN Reason: Hypoglycemia Enoxaparin Sodium (Enoxaparin 40 Mg/0.4 Ml Syringe) 40 mg SC DAILY [facility] Fluticasone Propionate (Fluticasone 0.05% 1 [place] Nasal.Sry) 2 spray NASAL DAILY [facility] Last Admin: 07/24/20 22:39 Dose: 2 spray Documented by: Glucagon (Glucagon 1 Mg/Ml Syringe) 1 mg IM .X1 PRN PRN Reason: Hypoglycemia Guaifenesin (Guaifenesin 1,200 Mg Tablet) 1,200 mg PO BID [facility] Last Admin: 07/24/20 22:39 Dose: 1,200 mg Documented by: Insulin Glargine (Insulin Glargine 100 Units/Ml Pen) 25 units SC 1100 [facility] Insulin Human Lispro (Insulin Lispro 100 Unit/Ml Insuln.Pen) 0 unit SC ACHS [facility]; Protocol Last Admin: 07/25/20 06:31 Dose: 3 u Documented by: Levofloxacin (Levofloxacin 500 Mg Tablet) 500 mg PO DAILY@0600 [facility] Stop: 07/29/20 06:01 Lisinopril (Lisinopril 5 Mg Tablet) 5 mg PO DAILY [facility] Meclizine HCl (Meclizine Hcl 25 Mg Tablet) 25 mg PO DAILY PRN PRN PRN Reason: Vertigo Melatonin (Melatonin 3 Mg Tablet) 3 mg PO QHS PRN PRN PRN Reason: INSOMNIA Methylprednisolone (Methylprednisolone 40 Mg/Ml Vial) 40 mg IV Q8 [facility] Last Admin: 07/25/20 05:20 Dose: 40 mg Documented by: Metoprolol Tartrate (Metoprolol Tartrate 25 Mg Tablet) 25 mg PO BID [facility] Last Admin: 07/24/20 22:44 Dose: 25 mg Documented by: Ondansetron HCl (Ondansetron 4 Mg/2 Ml Vial) 4 mg IV Q8H PRN PRN PRN Reason: NAUSEA/VOMITING Pantoprazole Sodium (Pantoprazole Sodium 20 Mg Tablet) 20 mg PO DAILY [facility] Sodium Chloride (0.9% Saline Lock 10 Ml Syringe) 10 - 40 ml IV UD PRN PRN Reason: SALINE FLUSH Last Admin: 07/24/20 21:22 Dose: 10 ml Documented by: Clinical Impression(s) from Imaging Studies Chest X-Ray 07/24/20 16:27 IMPRESSION: Poor inspiration with some bibasilar atelectasis Electronically Signed: Junior Chambers MD at 17:36 EST Tel , Service support , Chest CTA 07/24/20 17:24 IMPRESSION: No demonstrated PE, or thoracic aortic aneurysm or dissection. However, contrast bolus within the pulmonary arteries is not optimal. New since the previous study is a large subcarinal mass extending into the right hilar region concerning for primary neoplastic process. It measures approximately 4.9 x 2.8 x 5 cm. There is associated suspicious right perihilar adenopathy, nodules along the pericardium adjacent to the ascending thoracic aorta and enlarged mediastinal lymph nodes. Diffuse groundglass opacifications in both lung blackwell suggests active alveolitis. Free flowing right pleural effusion with bibasilar atelectasis Degenerative bony changes Fatty infiltration of the liver with diffuse hepatomegaly Simple right renal cyst, no specific follow-up needed Electronically Signed: Norberto Rushing MD at 18:52 EST , Service support , Assessment/Plan All Active Problems (Last Reviewed 06/04/20 @ 14:[address] Rickey Rubio MD) Lung neoplasm (Acute) Mediastinal mass (Acute) Angina pectoris (Resolved) Abnormal cardiovascular stress test (Resolved) RECOMMENDATIONS: 1. Continue bronchodilators and steroids 2. Transition from azithromycin to Levaquin 3. Wean oxygen as tolerated 4. Walking oximetry prior to discharge 5. Complete PFT and repeat CT scan as an outpatient 6. No plans for bronchoscopy during this hospitalization 7. Rest of control of blood sugars given steroid therapy IMPRESSIONS: 1. Acute hypoxic respiratory insufficiency secondary to COPD exacerbation Patient's Covid test is negative. Patient does have scattered groundglass opacities that may be secondary to a viral versus bacterial etiology. Will expand coverage to Levaquin to complete a 5-day course. Patient should continue on steroids and bronchodilators for now. Anticipate walking oximetry prior to discharge. If able to tolerate room air, could consider discharge on prednisone taper with outpatient pulmonary function test for quantification clarification of lung function. 2. Right hilar lymphadenopathy In retrospect, there was some mild lymphadenopathy noted on the right on previous CTs doses would include lymphoma, sarcoidosis or malignancy. Anticipate repeat CT scan in 1 to 2 months. If not improving, proceeding with endobronchial ultrasound may be necessary for biopsy and clarification of etiology. No anticipation of pursuing lung mass/adenopathy while an inpatient. Patient may have a mass abutting the atria versus round atelectasis. This will be very difficult to biopsy from a CT-guided approach. 3. Diabetes mellitus type 2 Patient does require steroids from a respiratory standpoint. We will have to watch blood sugars closely as patient does have insulin-dependent diabetes mellitus and this will likely worsen with steroid therapy. 4. Obesity/decreased EF/history of smoking Complicates care, management, recovery and prognosis. Increase lower extremity and will likely secondary to elevated pulmonary artery pressures associated with hypoxia secondary to problem #1. Would not likely require an echocardiogram as an inpatient, but this would be a consideration as an outpati ent for evaluation of pulmonary artery pressures. Patient may also benefit from evaluation for obstructive sleep apnea. 5. 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 Recommend volume restriction. Work-up as an outpatient. Inpatient E&M: 02608 Init Hosp L3
--- NOTE | 2020-07-25 09:45 | PCM.PN.HOSP ---
Patient Problems: Active and Suspected Problems (Last Reviewed 06/04/20 @ 14:[address] Rickey Rubio MD) Lung neoplasm (Acute) Mediastinal mass (Acute) Subjective: Feels good. Breathing better. Right frontal headache over the past few days. Denies grogginess. Normally drinks about 48 oz water/day in addition to coffee. Vitals/I&O's: Vital Signs Temp Pulse Resp BP Pulse Ox 36.9 C 79 18 138/66 H 96 07/25/20 02:55 07/25/20 07:06 07/25/20 07:06 07/25/20 02:55 07/25/20 07:06 Oxygen Flow Rate (L/min) 3 Oxygen Delivery Method Nasal Cannula Weight: 96.2 kg Body Mass Index (BMI) 36.3 Intake and Output for Last 24 Hours 07/23/20 07/24/20 07/25/20 23:59 23:59 23:59 Intake Total 500 / 1100 1850.00 / 1850.00 Output Total 2000 / 2000 Balance 500 / 600 -150.00 / -150.00 General: Alert, No apparent distress HEENT: Atraumatic, Normocephalic Oral: Moist Mucosa, No Gingival or Mucosal Lesions/ Ulcerations Neck: No Nodes, Thyroid Normal Size and Texture Lungs: Clear to auscultation, Normal air movement, No rhonchi, No wheeze, No rales Cardiovascular: Regular rate, Regular Rhythm, Normal S1, Normal S2, No murmurs Abdomen: Bowel Sounds Present, Soft, Non Tender, Non-Distended, No Hepato-splenomegaly Extremities: No Calf Tenderness, Edema Skin: No rashes, No breakdown Musculoskeletal: No Tenderness to Palpation of Joints or Extremities, No Muscle Wasting Psych/Mental Status: Normal Affect, Appropriate Microbiology Past 72 Hours 07/24/20 23:35 Mucosa - Nasopharyngeal Influenza Types A,B Direct FA (ARLEEN) - Final 07/24/20 16:34 Mucosa - Nose SARS-CoV-2 Antigen (Rapid) - Final Laboratory Results 07/24/20 16:05: WBC 14.3 H, RBC 4.17 L, Hgb 11.6 L, Hct 34.4 L, MCV 82.5, MCH 27.8, MCHC 33.7, RDW Std Deviation 39.8, RDW Coeff of [place] 13.3, Plt Count 318, MPV 10.1, Immature Gran % (Auto) 1.200 H, Neut % (Auto) 78.6 H, Lymph % (Auto) 8.6 L, [place] % (Auto) 10.9 H, Eos % (Auto) 0.4, Baso % (Auto) 0.3, Absolute Neuts (auto) 11.2 H, Absolute Lymphs (auto) 1.22, Nucleated RBC % 0, Differential Comment SEE COMMENT, Diff Path Review May foll, Platelet Estimate ADEQUATE, RBC Morphology N CHROM, Anisocytosis RARE 07/24/20 16:05: D-Dimer Quant (PE/DVT) 0.54 H* 07/24/20 16:05: Sodium 118 L*, Potassium 4.4, Chloride 84 L, Carbon Dioxide 26.0, Anion Gap 8, BUN 11, Creatinine 0.72, Estim Creat Clear Calc 69.96, Est GFR (MDRD) Af Amer 106, Est GFR (MDRD) Non-Af 87, BUN/Creatinine Ratio 15.3, Glucose 133 H, Calcium 8.8, Total Bilirubin 0.40, AST 28, ALT 34, Alkaline Phosphatase 59, Troponin I < 0.015, Total Protein 6.8, Albumin 3.3, Globulin 3.5, Albumin/Globulin Ratio 0.9 07/24/20 16:05: B-Natriuretic Peptide 211.8 H 07/24/20 21:53: Serum Osmolality 251 L 07/24/20 22:38: POC Glucose 259 H 07/24/20 23:00: Urine Osmolality 377 07/24/20 23:00: Ur Random Sodium 96 07/24/20 : Lactic Acid 1.9 07/25/20 05:35: WBC 13.1 H, RBC 3.99 L, Hgb 11.2 L, Hct 32.4 L, MCV 81.2, MCH 28.1, MCHC 34.6, RDW Std Deviation 38.5, RDW Coeff of [place] 13.2, Plt Count 292, MPV 10.0, Immature Gran % (Auto) 1.100 H, Neut % (Auto) 90.4 H, Lymph % (Auto) 5.2 L, [place] % (Auto) 2.9, Eos % (Auto) 0.2, Baso % (Auto) 0.2, Absolute Neuts (auto) 11.8 H, Absolute Lymphs (auto) 0.68 L, Nucleated RBC % 0 07/25/20 05:35: Sodium 117 L*, Potassium 4.4, Chloride 83 L, Carbon Dioxide 26.0, Anion Gap 8, BUN 9, Creatinine 0.66, Estim Creat Clear Calc 76.32, Est GFR (MDRD) Af Amer 116, Est GFR (MDRD) Non-Af 96, BUN/Creatinine Ratio 13.6, Glucose 242 H, Calcium 8.9 07/25/20 05:35: TSH 0.21 L 07/25/20 06:30: POC Glucose 241 H 07/25/20 07:56: Cortisol Pending Current Medications Acetaminophen (Acetaminophen 325 Mg Tablet) 650 mg PO Q6H PRN PRN PRN Reason: Pain Score 1-10/Temp > 100.7 F Albuterol Sulfate (Albuterol 2.5 Mg/3 Ml Vial.Neb.) 2.5 mg INHALATION Q2H PRN PRN PRN Reason: Shortness of Breath/Wheezing Albuterol/Ipratropium (Ipratropium/Albuterol Sulfate 3 Ml Ampul.Neb) 3 ml INHALATION Q4HWA.RT [facility] Last Admin: 07/25/20 07:06 Dose: 3 ml Documented by: Alprazolam (Alprazolam 0.25 Mg Tablet) 0.25 mg PO BID PRN PRN PRN Reason: ANXIETY Aspirin (Aspirin 81 Mg Tab.Chew) 81 mg PO DAILYCM [facility] Atorvastatin Calcium (Atorvastatin Calcium 40 Mg Tablet) 40 mg PO QHS [facility] Last Admin: 07/24/20 22:44 Dose: 40 mg Documented by: Buspirone HCl (Buspirone 5 Mg Tablet) 5 mg PO TID [facility] Last Admin: 07/25/20 05:20 Dose: 5 mg Documented by: Dextrose (Dextrose 50%-Water 25 Gm/50 Ml Disp.Syrin) 0 gm IV X1 PRN; Protocol PRN Reason: Hypoglycemia Enoxaparin Sodium (Enoxaparin 40 Mg/0.4 Ml Syringe) 40 mg SC DAILY [facility] Fluticasone Propionate (Fluticasone 0.05% 1 [place] Nasal.Sry) 2 spray NASAL DAILY [facility] Last Admin: 07/24/20 22:39 Dose: 2 spray Documented by: Glucagon (Glucagon 1 Mg/Ml Syringe) 1 mg IM .X1 PRN PRN Reason: Hypoglycemia Guaifenesin (Guaifenesin 1,200 Mg Tablet) 1,200 mg PO BID [facility] Last Admin: 07/24/20 22:39 Dose: 1,200 mg Documented by: Insulin Glargine (Insulin Glargine 100 Units/Ml Pen) 25 units SC 1100 [facility] Insulin Human Lispro (Insulin Lispro 100 Unit/Ml Insuln.Pen) 0 unit SC [facility]; Protocol Last Admin: 07/25/20 06:31 Dose: 3 u Documented by: Ketorolac Tromethamine (Ketorolac 15 Mg/Ml Vial) 15 mg IV Q6H PRN PRN PRN Reason: HEADACHE Stop: 07/30/20 09:25 Levofloxacin (Levofloxacin 500 Mg Tablet) 500 mg PO DAILY@0600 [facility] Stop: 07/29/20 06:01 Lisinopril (Lisinopril 5 Mg Tablet) 5 mg PO DAILY [facility] Meclizine HCl (Meclizine Hcl 25 Mg Tablet) 25 mg PO DAILY PRN PRN PRN Reason: Vertigo Melatonin (Melatonin 3 Mg Tablet) 3 mg PO QHS PRN PRN PRN Reason: INSOMNIA Methylprednisolone (Methylprednisolone 40 Mg/Ml Vial) 40 mg IV Q8 [facility] Last Admin: 07/25/20 05:20 Dose: 40 mg Documented by: Metoprolol Tartrate (Metoprolol Tartrate 25 Mg Tablet) 25 mg PO BID [facility] Last Admin: 07/24/20 22:44 Dose: 25 mg Documented by: Ondansetron HCl (Ondansetron 4 Mg/2 Ml Vial) 4 mg IV Q8H PRN PRN PRN Reason: NAUSEA/VOMITING Pantoprazole Sodium (Pantoprazole Sodium 20 Mg Tablet) 20 mg PO DAILY [facility] Sodium Chloride (0.9% Saline Lock 10 Ml Syringe) 10 - 40 ml IV UD PRN PRN Reason: SALINE FLUSH Last Admin: 07/24/20 21:22 Dose: 10 ml Documented by: Sodium Chloride (Sodium Chloride 1 Gm Tablet) 1 gm PO 4X/DAY [facility] STROKE Vital Signs/Narrative: Vital Signs Pulse Resp Pulse Ox 07/25/20 07:06 79 18 96 Medical Necessity - Tobacco Use Smoking Status: Former smoker Tobacco Use: Non-smoker Assessment/Plan All Active Problems (Last Reviewed 06/04/20 @ 14:[address] Rickey Rubio MD) Lung neoplasm (Acute) Mediastinal mass (Acute) Angina pectoris (Resolved) Abnormal cardiovascular stress test (Resolved) 1. AECOPD: improving. Continue BDs and methypred. Follow up with pulm as outpt for further testing (i.e., PFTs) 2. Hyponatremia, severe: suspect SIADH TSH low, check FT4 and FT3 follow up cortisol fluid restrict Patient is currently asymptomatic. I do not feel that her headache is associated with hyponatremia. Explained the risks of severe hyponatremia including seizures and change in mental status. I suspected that this is actually more chronic as if it were acute she would be much more symptomatic. Patient did have normal sodium back in November of last year. For now, will fluid restrict the patient and continue with fluid restriction of 1200 cc/day. I did recommend to the patient hypertonic saline. I did confer with the charge nurse that hypertonic saline would require ICU placement as well as central line. I told this is to the patient and she is not interested in that. I told her that given her lack of symptoms due to her hyponatremia I suspect that she would do well but I told her I could not guarantee that. We did agree to proceed with salt tablets and liberalize salt intake and fluid restriction and continue to monitor the sodium. 3. Subcarinal mass Not present previously Currently measuring 4.9 x 2.8 x 5 cm. Further work-up will be performed as outpatient with pulmonology. Continue with antibiotics 4. VTE prophylaxis with enoxaparin. 5. Diabetes mellitus type 2: Uncontrolled. Exacerbated by steroids. Continue with glargine as well as sliding scale. Greater than 45 minutes of which greater than 50% of time was coordinating with the charge nurse in regards to possibility of giving patient hypertonic saline and placement but also discussing with the patient about the hyponatremia and the risk associated with that and the recommended treatments. Inpatient E&M: [id number] [facility] Hosp L3
[2020-07-25] MEDS: Fluticasone 0.05% 1 SPRAY NASAL.SRY 2 SPRAY NASAL (10:15)
[2020-07-25] MEDS: Aspirin 81 MG TAB.CHEW PO (10:15)
[2020-07-25] MEDS: Metoprolol Tartrate 25 MG Tablet PO ×2 (10:15→21:42)
[2020-07-25] MEDS: Enoxaparin 40 MG/0.4 ML Syringe SC (10:15)
[2020-07-25] MEDS: Pantoprazole Sodium 20 MG Tablet PO (10:16)
[2020-07-25] MEDS: guaiFENesin 1,200 MG Tablet 1200 MG PO ×2 (10:16→21:41)
[2020-07-25] MEDS: Sodium Chloride 1 GM Tablet PO ×4 (10:16→21:41)
[2020-07-25] MEDS: Lisinopril 5 MG Tablet PO (10:17)
[2020-07-25 11:01] LABS: Anion Gap 10 (5-15); BUN 8 mg/dL (7-18); BUN/Creat Ratio 12.6 RATIO (10-20); Calcium,Total 8.9 mg/dL (8.5-10.1); Chloride 85 mmol/L (98-107); Creatinine, Serum 0.63 mg/dL (0.55-1.02); EST Glomerular Filtration Rate 101 mL/min (>60); Est Glom Filt Rate - Afr Amer 122 mL/min (>60); Estimated Creatinine Clearance 79.95 ml/min; Free T3 1.8 pg/mL (2.18-3.98); Glucose 230 mg/dL (74-106); Potassium 4.7 mmol/L (3.5-5.1); Sodium Level 119 mmol/L (136-145); T4 Free Direct 1.42 ng/dL (0.76-1.46)
[2020-07-25 12:16] LABS: Bedside Glucose 307 mg/dL (70-110)
[2020-07-25] MEDS: Acetaminophen 325 MG Tablet 650 MG PO ×2 (12:28→18:51)
[2020-07-25] MEDS: ALPRAZolam 0.25 MG Tablet PO (12:28)
[2020-07-25] MEDS: levoFLOXacin 500 MG Tablet PO (12:28)
[2020-07-25 12:53] LABS: Bacteria 0 SEEN /hpf (None Seen); Color, Urine Yellow (Yellow); Glucose, Dipstick 1000 mg/dl (Normal); Ketone-Dipstick 15 mg/dl (Negative); Leukocyte Esterase-Dipstick Negative /ul (Negative); Mucous, Urine 0 SEEN /hpf (<or=2+); Nitrite-Dipstick Negative (Negative); Occult Blood-Urine Negative /ul (Negative); Protein-Dipstick 30 mg/dl (Negative); Red Blood Cells-Urine 0 SEEN /hpf (0-5); Squamous Epithelial Cells - UA 0 SEEN /hpf (5-10); Urine Bilirubin Dipstick Negative (Negative); Urine Clarity Clear (Clear); Urine Urobilinogen Normal (Normal); White Blood Cells 0 SEEN /hpf (0-5)
--- NOTE | 2020-07-25 13:46 | CM.UR ---
RN CM Assessment Introduced role of RN CM to patient.? Patient is alert, oriented and able?to participate in RN CM Assessment. ?Care providers, pharmacy, and demographics verified. Presentation: Shortness of breath Admit Dx: COPD, lung mass Re-Admit: No Barriers/Issues: none noted PCP: Lauren but states she is going to change to a [place] provider Specialists: Dr. Rubio (endo); Dr. Rivera (cardio); She will now follow up with Dr. Pretty now [facility]erred [facility]acy: [facility] Insurance: [facility] Rx Benefit:?Yes ?LNOK: Austin Hidalgo (significant other) LW/HPOA: None. doesn't want to pursue at this time. Living Arrangements:? Lives in mobile home with 4 steps w/railing to get into home. ADL?s: Independent Transportation: Self and/or significant other. No concerns about transportation. DME: Shower chair, raised toilet seat, walker, cane, hand held shower. HHC: None, recently. Had a nurse in [place] when he had his back surgery but can't remember name. SNF: None Goal: Home, no needs. DC PLAN: Home. Will follow for possible O2. Alerted patient that case management will remain available should any needs arise. Verb understanding. Marily Gallego RN, CCM.
[2020-07-25] MEDS: 0.9% Saline Lock 10 ML Syringe IV ×2 (14:57→21:43)
[2020-07-25 16:55] LABS: Bedside Glucose 258 mg/dL (70-110)
[2020-07-25 17:11] LABS: Bedside Glucose 282 mg/dL (70-110)
[2020-07-25 17:28] LABS: Anion Gap 8 (5-15); BUN 15 mg/dL (7-18); Chloride 86 mmol/L (98-107); Creatinine, Serum 0.83 mg/dL (0.55-1.02); EST Glomerular Filtration Rate 74 mL/min (>60); Est Glom Filt Rate - Afr Amer 89 mL/min (>60); Estimated Creatinine Clearance 60.69 ml/min; Glucose 243 mg/dL (74-106); Potassium 4.7 mmol/L (3.5-5.1); Sodium Level 119 mmol/L (136-145)
[2020-07-25] MEDS: Atorvastatin Calcium 40 MG Tablet PO (21:41)
[2020-07-25 21:51] LABS: Bedside Glucose 288 mg/dL (70-110)
[2020-07-25 21:58] LABS: Anion Gap 9 (5-15); BUN 19 mg/dL (7-18); BUN/Creat Ratio 15.3 RATIO (10-20); Chloride 87 mmol/L (98-107); Creatinine, Serum 1.24 mg/dL (0.55-1.02); EST Glomerular Filtration Rate 47 mL/min (>60); Est Glom Filt Rate - Afr Amer 56 mL/min (>60); Estimated Creatinine Clearance 40.62 ml/min; Glucose 313 mg/dL (74-106); Potassium 4.5 mmol/L (3.5-5.1); Sodium Level 120 mmol/L (136-145)
[2020-07-26] VITALS (12 sets, daily range): BP systolic 135–160; BP diastolic 71–81; PULSE 69–85; RESP 16–20; TEMP 36.1–36.6; O2SAT 91–97
[2020-07-26] MEDS: busPIRone 5 MG Tablet PO ×3 (06:03→21:59)
[2020-07-26] MEDS: levoFLOXacin 500 MG Tablet PO (06:03)
[2020-07-26] MEDS: Insulin Lispro 100 UNIT/ML INSULN.PEN SC ×4 (06:45→22:01)
[2020-07-26 06:55] LABS: Bedside Glucose 256 mg/dL (70-110)
[2020-07-26 07:46] LABS: Anion Gap 10 (5-15); BUN 18 mg/dL (7-18); BUN/Creat Ratio 22.8 RATIO (10-20); Chloride 86 mmol/L (98-107); Creatinine, Serum 0.79 mg/dL (0.55-1.02); EST Glomerular Filtration Rate 78 mL/min (>60); Est Glom Filt Rate - Afr Amer 95 mL/min (>60); Estimated Creatinine Clearance 63.76 ml/min; Glucose 261 mg/dL (74-106); Potassium 4.6 mmol/L (3.5-5.1); Sodium Level 121 mmol/L (136-145)
[2020-07-26] MEDS: Ipratropium/Albuterol Sulfate 3 ML AMPUL.NEB INHALATION ×4 (07:47→19:30)
--- NOTE | 2020-07-26 07:49 | PCM.PN.PUL ---
Patient Problems: Active and Suspected Problems (Last Reviewed 06/04/20 @ 14:[address] Rickey Rubio MD) Lung neoplasm (Acute) Mediastinal mass (Acute) Subjective: Patient did okay overnight. Patient was able to be taken off of supplemental oxygen at rest. Patient is not reporting any chest pain. Patient does report occasional dyspnea on exertion with cough that is relatively nonproductive. - Physical Exam Vitals/I&O's: Vital Signs Temp Pulse Resp BP Pulse Ox 36.4 C L 83 16 135/76 H 97 07/26/20 02:33 07/26/20 02:33 07/26/20 02:33 07/26/20 02:33 07/26/20 06:01 Oxygen Flow Rate (L/min) 2 Oxygen Delivery Method Room Air Weight: 96.2 kg Body Mass Index (BMI) 36.3 Intake and Output for Last 24 Hours 07/24/20 07/25/20 07/26/20 23:59 23:59 23:59 Intake Total 500 / 1100 1850.00 / 2172.00 642 / 642 Output Total 2000 / 2000 Balance 500 / 600 -150.00 / 172.00 642 / 642 General: Alert, Oriented x3, Cooperative, No apparent distress, - - Obese. No conversational dyspnea. HEENT: Atraumatic, PERRLA, EOMI, Normocephalic, - - No scleral icterus or injection noted Oral: Moist Mucosa, No Gingival or Mucosal Lesions/ Ulcerations Neck: Supple, No JVD, No Nodes, Trachea Midline Lungs: No rhonchi, No rales, Diminished, Wheezes - At end exhalation only Cardiovascular: Regular rate, Regular Rhythm, Normal S1, Normal S2, No murmurs, No rub noted, No Gallop Abdomen: Bowel Sounds Present, Soft, Non Tender, Non-Distended, Obese Extremities: No clubbing, No cyanosis, Edema - Trace to 1+ lower extremities Skin: No rashes, No breakdown Musculoskeletal: No Tenderness to Palpation of Joints or Extremities Lymphatic: No Cervical, Supraclavicular, or Inguinal Adenopathy Neurological: Cranial nerves II-XII grossly intact, Neuro grossly intact, Motor Exam 5/5 strength throughout Psych/Mental Status: Alert and oriented to time, place, person, mood and affect Microbiology Past 72 Hours 02/05/21 23:35 Mucosa - Nasopharyngeal Influenza Types A,B Direct FA (ARLEEN) - Final 07/24/20 16:34 Mucosa - Nose SARS-CoV-2 Antigen (Rapid) - Final Laboratory Results 07/25/20 05:35: TSH 0.21 L 07/25/20 05:35: Sodium 119 L*, Potassium 4.7, Chloride 85 L, Carbon Dioxide 24.0, Anion Gap 10, BUN 8, Creatinine 0.63, Estim Creat Clear Calc 79.95, Est GFR (MDRD) Af Amer 122, Est GFR (MDRD) Non-Af 101, BUN/Creatinine Ratio 12.6, Glucose 230 H, Calcium 8.9, Free T4 1.42, Free T3 pg/dL 1.8 L 07/25/20 07:56: Cortisol Pending 07/25/20 12:06: POC Glucose 307 H 07/25/20 12:10: Urine Color Yellow, Urine Clarity Clear, Urine pH 7.0, Ur Specific [place] 1.010, Urine Protein 30 H, Urine Glucose (UA) 1000 H, Urine Ketones 15 H, Urine Occult Blood Negative, Urine Nitrite Negative, Urine Bilirubin Negative, Urine Urobilinogen Normal, Ur Leukocyte Esterase Negative, Urine RBC 0 SEEN, Urine WBC 0 SEEN, Ur Squamous Epith Cells 0 SEEN, Urine Bacteria 0 SEEN, Urine Mucus 0 SEEN 07/25/20 15:50: Sodium 119 L*, Potassium 4.7, Chloride 86 L, Carbon Dioxide 25.0, Anion Gap 8, BUN 15, Creatinine 0.83, Estim Creat Clear Calc 60.69, Est GFR (MDRD) Af Amer 89, Est GFR (MDRD) Non-Af 74, BUN/Creatinine Ratio 18.0, Glucose 243 H, Calcium 9.0 07/25/20 16:07: POC Glucose 258 H 07/25/20 17:06: POC Glucose 282 H 07/25/20 21:10: Sodium 120 L, Potassium 4.5, Chloride 87 L, Carbon Dioxide 24.0, Anion Gap 9, BUN 19 H, Creatinine 1.24 H, Estim Creat Clear Calc 40.62, Est GFR (MDRD) Af Amer 56 L, Est GFR (MDRD) Non-Af 47 L, BUN/Creatinine Ratio 15.3, Glucose 313 H, Calcium 9.0 07/25/20 21:39: POC Glucose 288 H 07/26/20 05:44: Sodium 121 L, Potassium 4.6, Chloride 86 L, Carbon Dioxide 25.0, Anion Gap 10, BUN 18, Creatinine 0.79, Estim Creat Clear Calc 63.76, Est GFR (MDRD) Af Amer 95, Est GFR (MDRD) Non-Af 78, BUN/Creatinine Ratio 22.8 H, Glucose 261 H, Calcium 9.0 07/26/20 06:43: POC Glucose 256 H Current Medications Acetaminophen (Acetaminophen 325 Mg Tablet) 650 mg PO Q6H PRN PRN PRN Reason: Pain Score 1-10/Temp > 100.7 F Last Admin: 07/25/20 18:51 Dose: 650 mg Documented by: Albuterol Sulfate (Albuterol 2.5 Mg/3 Ml Vial.Neb.) 2.5 mg INHALATION Q2H PRN PRN PRN Reason: Shortness of Breath/Wheezing Albuterol/Ipratropium (Ipratropium/Albuterol Sulfate 3 Ml Ampul.Neb) 3 ml INHALATION Q4HWA.RT [facility] Last Admin: 07/26/20 07:47 Dose: 3 ml Documented by: Alprazolam (Alprazolam 0.25 Mg Tablet) 0.25 mg PO BID PRN PRN PRN Reason: ANXIETY Last Admin: 07/25/20 12:28 Dose: 0.25 mg Documented by: Aspirin (Aspirin 81 Mg Tab.Chew) [facility] Last Admin: 07/25/20 10:15 Dose: 81 mg Documented by: Atorvastatin Calcium (Atorvastatin Calcium 40 Mg Tablet) 40 mg PO QHS [facility] Last Admin: 07/25/20 21:41 Dose: 40 mg Documented by: Buspirone HCl (Buspirone 5 Mg Tablet) 5 mg PO TID [facility] Last Admin: 07/26/20 06:03 Dose: 5 mg Documented by: Dextrose (Dextrose 50%-Water 25 Gm/50 Ml Disp.Syrin) 0 gm IV X1 PRN; Protocol PRN Reason: Hypoglycemia Enoxaparin Sodium (Enoxaparin 40 Mg/0.4 Ml Syringe) 40 mg SC DAILY [facility] Last Admin: 07/25/20 10:15 Dose: 40 mg Documented by: Fluticasone Propionate (Fluticasone 0.05% 1 [place] Nasal.Sry) 2 spray NASAL DAILY [facility] Last Admin: 07/25/20 10:15 Dose: 2 spray Documented by: Glucagon (Glucagon 1 Mg/Ml Syringe) 1 mg IM .X1 PRN PRN Reason: Hypoglycemia Guaifenesin (Guaifenesin 1,200 Mg Tablet) 1,200 mg PO BID [facility] Last Admin: 07/25/20 21:41 Dose: 1,200 mg Documented by: Insulin Glargine (Insulin Glargine 100 Units/Ml Pen) 25 units SC 1100 [facility] Last Admin: 07/25/20 12:27 Dose: 25 u Documented by: Insulin Human Lispro (Insulin Lispro 100 Unit/Ml Insuln.Pen) 0 unit SC ACHS [facility]; Protocol Last Admin: 07/26/20 06:45 Dose: 3 u Documented by: Ketorolac Tromethamine (Ketorolac 15 Mg/Ml Vial) 15 mg IV Q6H PRN PRN PRN Reason: HEADACHE Stop: 07/30/20 09:25 Levofloxacin (Levofloxacin 500 Mg Tablet) 500 mg PO DAILY@0600 [facility] Stop: 07/29/20 06:01 Last Admin: 07/26/20 06:03 Dose: 500 mg Documented by: Lisinopril (Lisinopril 5 Mg Tablet) 5 mg PO DAILY [facility] Last Admin: 07/25/20 10:17 Dose: 5 mg Documented by: Meclizine HCl (Meclizine Hcl 25 Mg Tablet) 25 mg PO DAILY PRN PRN PRN Reason: Vertigo Melatonin (Melatonin 3 Mg Tablet) 3 mg PO QHS PRN PRN PRN Reason: INSOMNIA Methylprednisolone (Methylprednisolone 40 Mg/Ml Vial) 40 mg IV Q8 [facility] Last Admin: 07/26/20 06:45 Dose: 40 mg Documented by: Metoprolol Tartrate (Metoprolol Tartrate 25 Mg Tablet) 25 mg PO BID [facility] Last Admin: 07/25/20 21:42 Dose: 25 mg Documented by: Ondansetron HCl (Ondansetron 4 Mg/2 Ml Vial) 4 mg IV Q8H PRN PRN PRN Reason: NAUSEA/VOMITING Pantoprazole Sodium (Pantoprazole Sodium 20 Mg Tablet) 20 mg PO DAILY [facility] Last Admin: 07/25/20 10:16 Dose: 20 mg Documented by: Sodium Chloride (0.9% Saline Lock 10 Ml Syringe) 10 - 40 ml IV UD PRN PRN Reason: SALINE FLUSH Last Admin: 07/25/20 21:43 Dose: 10 ml Documented by: Sodium Chloride (Sodium Chloride 1 Gm Tablet) 1 gm PO 4X/DAY [facility] Last Admin: 07/25/20 21:41 Dose: 1 gm Documented by: Medical Necessity - Tobacco Use Smoking Status: Former smoker Tobacco Use: Non-smoker Assessment/Plan All Active Problems (Last Reviewed 06/04/20 @ 14:[address] Rickey Rubio MD) Lung neoplasm (Acute) Mediastinal mass (Acute) Angina pectoris (Resolved) Abnormal cardiovascular stress test (Resolved) RECOMMENDATIONS: 1. Continue bronchodilators and steroids. Transition to prednisone and wean over 12 to 14 days if discharged 2. Completed a course of Levaquin as ordered 3. Possibly okay to discharge if able to ambulate without supplemental oxygen 4. Walking oximetry prior to discharge 5. Complete PFT and repeat CT scan as an outpatient 6. No plans for bronchoscopy during this hospitalization 7. Follow-up with nurse practitioner in our office 2 weeks after discharge 8. Recommend fluid restriction on discharge. IMPRESSIONS: 1. Acute hypoxic respiratory insufficiency secondary to COPD exacerbation Patient's Covid test is negative. Patient does have scattered groundglass opacities that may be secondary to a viral versus bacterial etiology. Will continue Levaquin to complete a 5-day course. Patient should continue on steroids and bronchodilators for now. Anticipate walking oximetry prior to discharge. If able to tolerate room air, could consider discharge on prednisone taper with outpatient pulmonary function test for quantification clarification of lung function. 2. Right hilar lymphadenopathy In retrospect, there was some mild lymphadenopathy noted on the right on previous CTs doses would include lymphoma, sarcoidosis or malignancy. Anticipate repeat CT scan in 1 to 2 months. If not improving, proceeding with endobronchial ultrasound may be necessary for biopsy and clarification of etiology. No anticipation of pursuing lung mass/adenopathy while an inpatient. Patient may have a mass abutting the atria versus round atelectasis. This will be very difficult to biopsy from a CT-guided approach. 3. Diabetes mellitus type 2 Patient does require steroids from a respiratory standpoint. We will have to watch blood sugars closely as patient does have insulin-dependent diabetes mellitus and this will likely worsen with steroid therapy. 4. Obesity/decreased EF/history of smoking Complicates care, management, recovery and prognosis. Increase lower extremity and will likely secondary to elevated pulmonary artery pressures associated with hypoxia secondary to problem #1. Would not likely require an echocardiogram as an inpatient, but this would be a consideration as an outpatient for evaluation of pulmonary artery pressures. Patient may also benefit from evaluation for obstructive sleep apnea. 5. 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 Recommend fluid restriction. Work-up as an outpatient. Inpatient E&M: [id number] Subs Hosp L2
[2020-07-26] MEDS: Aspirin 81 MG TAB.CHEW PO (08:23)
[2020-07-26] MEDS: Acetaminophen 325 MG Tablet 650 MG PO ×3 (08:26→21:58)
--- NOTE | 2020-07-26 09:44 | NURSING ---
pt pox 94% on RA, walked in halls no SOB noted, tolerated well. pox after walk 93% Derek Cortez RN
[2020-07-26] MEDS: Fluticasone 0.05% 1 SPRAY NASAL.SRY 2 SPRAY NASAL (09:48)
[2020-07-26] MEDS: guaiFENesin 1,200 MG Tablet 1200 MG PO ×2 (09:52→22:00)
[2020-07-26] MEDS: Sodium Chloride 1 GM Tablet PO ×4 (09:52→22:02)
[2020-07-26] MEDS: Lisinopril 5 MG Tablet PO (09:52)
[2020-07-26] MEDS: Pantoprazole Sodium 20 MG Tablet PO (09:52)
[2020-07-26] MEDS: Enoxaparin 40 MG/0.4 ML Syringe SC (09:53)
[2020-07-26] MEDS: Metoprolol Tartrate 25 MG Tablet PO ×2 (09:54→22:00)
--- NOTE | 2020-07-26 12:34 | PCM.PN.HOSP ---
Patient Problems: Active and Suspected Problems (Last Reviewed 06/04/20 @ 14:[address] Rickey Rubio MD) Lung neoplasm (Acute) Mediastinal mass (Acute) Subjective: feels good. breathing better and off oxygen. Vitals/I&O's: Vital Signs Temp Pulse Resp BP Pulse Ox 36.1 C L 69 18 160/73 H 93 07/26/20 09:00 07/26/20 10:55 07/26/20 10:55 07/26/20 09:54 07/26/20 09:44 Oxygen Flow Rate (L/min) 2 Oxygen Delivery Method Room Air Weight: 96.2 kg Body Mass Index (BMI) 36.3 Intake and Output for Last 24 Hours 07/24/20 07/25/20 07/26/20 23:59 23:59 23:59 Intake Total 500 / 1100 1850.00 / 2172.00 642 / 642 Output Total 2000 / 2000 Balance 500 / 600 -150.00 / 172.00 642 / 642 General: Alert, No apparent distress HEENT: Atraumatic, Normocephalic Oral: Moist Mucosa, No Gingival or Mucosal Lesions/ Ulcerations Neck: No Nodes, Thyroid Normal Size and Texture Lungs: Clear to auscultation, Normal air movement, No rhonchi, No wheeze Cardiovascular: Regular rate, Regular Rhythm, Normal S1, Normal S2 Abdomen: Bowel Sounds Present, Soft, Non Tender, Non-Distended, No Hepato-splenomegaly Extremities: No edema, No Calf Tenderness Psych/Mental Status: Normal Affect, Appropriate Microbiology Past 72 Hours 07/24/20 23:35 Mucosa - Nasopharyngeal Influenza Types A,B Direct FA (ARLEEN) - Final 07/24/20 16:34 Mucosa - Nose SARS-CoV-2 Antigen (Rapid) - Final Laboratory Results 07/25/20 12:10: Urine Color Yellow, Urine Clarity Clear, Urine pH 7.0, Ur Specific [place] 1.010, Urine Protein 30 H, Urine Glucose (UA) 1000 H, Urine Ketones 15 H, Urine Occult Blood Negative, Urine Nitrite Negative, Urine Bilirubin Negative, Urine Urobilinogen Normal, Ur Leukocyte Esterase Negative, Urine RBC 0 SEEN, Urine WBC 0 SEEN, Ur Squamous Epith Cells 0 SEEN, Urine Bacteria 0 SEEN, Urine Mucus 0 SEEN 07/25/20 15:50: Sodium 119 L*, Potassium 4.7, Chloride 86 L, Carbon Dioxide 25.0, Anion Gap 8, BUN 15, Creatinine 0.83, Estim Creat Clear Calc 60.69, Est GFR (MDRD) Af Amer 89, Est GFR (MDRD) Non-Af 74, BUN/Creatinine Ratio 18.0, Glucose 243 H, Calcium 9.0 07/25/20 16:07: POC Glucose 258 H 07/25/20 17:06: POC Glucose 282 H 07/25/20 21:10: Sodium 120 L, Potassium 4.5, Chloride 87 L, Carbon Dioxide 24.0, Anion Gap 9, BUN 19 H, Creatinine 1.24 H, Estim Creat Clear Calc 40.62, Est GFR (MDRD) Af Amer 56 L, Est GFR (MDRD) Non-Af 47 L, BUN/Creatinine Ratio 15.3, Glucose 313 H, Calcium 9.0 07/25/20 21:39: POC Glucose 288 H 07/26/20 05:44: Sodium 121 L, Potassium 4.6, Chloride 86 L, Carbon Dioxide 25.0, Anion Gap 10, BUN 18, Creatinine 0.79, Estim Creat Clear Calc 63.76, Est GFR (MDRD) Af Amer 95, Est GFR (MDRD) Non-Af 78, BUN/Creatinine Ratio 22.8 H, Glucose 261 H, Calcium 9.0 07/26/20 06:43: POC Glucose 256 H Current Medications Acetaminophen (Acetaminophen 325 Mg Tablet) 650 mg PO Q6H PRN PRN PRN Reason: Pain Score 1-10/Temp > 100.7 F Last Admin: 07/26/20 08:26 Dose: 650 mg Documented by: Albuterol Sulfate (Albuterol 2.5 Mg/3 Ml Vial.Neb.) 2.5 mg INHALATION Q2H PRN PRN PRN Reason: Shortness of Breath/Wheezing Albuterol/Ipratropium (Ipratropium/Albuterol Sulfate 3 Ml Ampul.Neb) 3 ml INHALATION Q4HWA.RT SONIA Last Admin: 07/26/20 10:55 Dose: 3 ml Documented by: Alprazolam (Alprazolam 0.25 Mg Tablet) 0.25 mg PO BID PRN PRN PRN Reason: ANXIETY Last Admin: 07/25/20 12:28 Dose: 0.25 mg Documented by: Aspirin (Aspirin 81 Mg Tab.Chew) 81 mg PO DAILYCM [facility] Last Admin: 07/26/20 08:23 Dose: 81 mg Documented by: Atorvastatin Calcium (Atorvastatin Calcium 40 Mg Tablet) 40 mg PO QHS [facility] Last Admin: 07/25/20 21:41 Dose: 40 mg Documented by: Buspirone HCl (Buspirone 5 Mg Tablet) 5 mg PO TID [facility] Last Admin: 07/26/20 06:03 Dose: 5 mg Documented by: Dextrose (Dextrose 50%-Water 25 Gm/50 Ml Disp.Syrin) 0 gm IV X1 PRN; Protocol PRN Reason: Hypoglycemia Enoxaparin Sodium (Enoxaparin 40 Mg/0.4 Ml Syringe) 40 mg SC DAILY [facility] Last Admin: 07/26/20 09:53 Dose: 40 mg Documented by: Fluticasone Propionate (Fluticasone 0.05% 1 [place] Nasal.Sry) 2 spray NASAL DAILY [facility] Last Admin: 07/26/20 09:48 Dose: 2 spray Documented by: Glucagon (Glucagon 1 Mg/Ml Syringe) 1 mg IM .X1 PRN PRN Reason: Hypoglycemia Guaifenesin (Guaifenesin 1,200 Mg Tablet) 1,200 mg PO BID [facility] Last Admin: 07/26/20 09:52 Dose: 1,200 mg Documented by: Insulin Glargine (Insulin Glargine 100 Units/Ml Pen) 25 units SC 1100 [facility] Last Admin: 07/25/20 12:27 Dose: 25 u Documented by: Insulin Human Lispro (Insulin Lispro 100 Unit/Ml Insuln.Pen) 0 unit SC [facility]; Protocol Last Admin: 07/26/20 06:45 Dose: 3 u Documented by: Ketorolac Tromethamine (Ketorolac 15 Mg/Ml Vial) 15 mg IV Q6H PRN PRN PRN Reason: HEADACHE Stop: 07/30/20 09:25 Levofloxacin (Levofloxacin 500 Mg Tablet) 500 mg PO DAILY@0600 [facility] Stop: 07/29/20 06:01 Last Admin: 07/26/20 06:03 Dose: 500 mg Documented by: Lisinopril (Lisinopril 5 Mg Tablet) 5 mg PO DAILY [facility] Last Admin: 07/26/20 09:52 Dose: 5 mg Documented by: Meclizine HCl (Meclizine Hcl 25 Mg Tablet) 25 mg PO DAILY PRN PRN PRN Reason: Vertigo Melatonin (Melatonin 3 Mg Tablet) 3 mg PO QHS PRN PRN PRN Reason: INSOMNIA Methylprednisolone (Methylprednisolone 40 Mg/Ml Vial) 40 mg IV Q8 [facility] Last Admin: 07/26/20 06:45 Dose: 40 mg Documented by: Metoprolol Tartrate (Metoprolol Tartrate 25 Mg Tablet) 25 mg PO BID [facility] Last Admin: 07/26/20 09:54 Dose: 25 mg Documented by: Ondansetron HCl (Ondansetron 4 Mg/2 Ml Vial) 4 mg IV Q8H PRN PRN PRN Reason: NAUSEA/VOMITING Pantoprazole Sodium (Pantoprazole Sodium 20 Mg Tablet) 20 mg PO DAILY [facility] Last Admin: 07/26/20 09:52 Dose: 20 mg Documented by: Sodium Chloride (0.9% Saline Lock 10 Ml Syringe) 10 - 40 ml IV UD PRN PRN Reason: SALINE FLUSH Last Admin: 07/25/20 21:43 Dose: 10 ml Documented by: Sodium Chloride (Sodium Chloride 1 Gm Tablet) 1 gm PO 4X/DAY [facility] Last Admin: 07/26/20 09:52 Dose: 1 gm Documented by: STROKE Vital Signs/Narrative: Vital Signs Temp Pulse Resp BP Pulse Ox 07/26/20 10:55 69 18 07/26/20 09:54 80 160/73 H 07/26/20 09:44 93 07/26/20 09:00 36.1 C L 80 20 H 160/73 H 94 Medical Necessity - Tobacco Use Smoking Status: Former smoker Tobacco Use: Non-smoker Assessment/Plan All Active Problems (Last Reviewed 06/04/20 @ 14:[address] Rickey Rubio MD) Lung neoplasm (Acute) Mediastinal mass (Acute) Angina pectoris (Resolved) Abnormal cardiovascular stress test (Resolved) 1. AECOPD: improving. Continue BDs and methypred. Follow up with pulm as outpt for further testing (i.e., PFTs) 2. Hyponatremia, severe: slowly improving suspect SIADH follow up cortisol fluid restrict Patient is currently asymptomatic. I do not feel that her headache is associated with hyponatremia. Explained the risks of severe hyponatremia including seizures and change in mental status. I suspected that this is actually more chronic as if it were acute she would be much more symptomatic. Patient did have normal sodium back in November of last year. For now, will fluid restrict the patient and continue with fluid restriction of 1200 cc/day. I did recommend to the patient hypertonic saline. I did confer with the charge nurse that hypertonic saline would require ICU placement as well as central line. I told this is to the patient and she is not interested in that. I told her that given her lack of symptoms due to her hyponatremia I suspect that she would do well but I told her I could not guarantee that. We did agree to proceed with salt tablets and liberalize salt intake and fluid restriction and continue to monitor the sodium. 3. Subcarinal mass Not present previously Currently measuring 4.9 x 2.8 x 5 cm. Further work-up will be performed as outpatient with pulmonology. Continue with antibiotics 4. VTE prophylaxis with enoxaparin. 5. Diabetes mellitus type 2: Uncontrolled. Exacerbated by steroids. Continue with glargine as well as sliding scale. 6. Disposition: pending continued slow improvement of sodium. If sodium in mid 120s, could be discharged with outpt lab follow up . Inpatient E&M: 18413 Subs Hosp L2
[2020-07-26 12:56] LABS: Bedside Glucose 317 mg/dL (70-110)
[2020-07-26 13:35] LABS: Anion Gap 9 (5-15); BUN 21 mg/dL (7-18); BUN/Creat Ratio 23.9 RATIO (10-20); Calcium,Total 9.2 mg/dL (8.5-10.1); Chloride 87 mmol/L (98-107); Creatinine, Serum 0.88 mg/dL (0.55-1.02); EST Glomerular Filtration Rate 70 mL/min (>60); Est Glom Filt Rate - Afr Amer 84 mL/min (>60); Estimated Creatinine Clearance 57.24 ml/min; Glucose 316 mg/dL (74-106); Potassium 4.5 mmol/L (3.5-5.1); Sodium Level 120 mmol/L (136-145)
[2020-07-26] MEDS: 0.9% Saline Lock 10 ML Syringe IV (14:05)
[2020-07-26 17:45] LABS: Bedside Glucose 325 mg/dL (70-110)
[2020-07-26] MEDS: Fluticasone 0.05% 1 SPRAY NASAL.SRY NASAL (21:58)
[2020-07-26] MEDS: Atorvastatin Calcium 40 MG Tablet PO (21:59)
[2020-07-26 22:11] LABS: Bedside Glucose 360 mg/dL (70-110)
[2020-07-27 02:30] VITALS: BP 139/80; PULSE 78; RESP 18; TEMP 37; O2SAT 92
[2020-07-27] MEDS: levoFLOXacin 500 MG Tablet PO (06:33)
[2020-07-27] MEDS: busPIRone 5 MG Tablet PO (06:33)
[2020-07-27] MEDS: Insulin Lispro 100 UNIT/ML INSULN.PEN SC ×2 (06:36→11:39)
[2020-07-27] MEDS: 0.9% Saline Lock 10 ML Syringe IV (06:37)
[2020-07-27 06:38] LABS: Anion Gap 9 (5-15); BUN 21 mg/dL (7-18); BUN/Creat Ratio 24.4 RATIO (10-20); Calcium,Total 9.1 mg/dL (8.5-10.1); Chloride 92 mmol/L (98-107); Creatinine, Serum 0.86 mg/dL (0.55-1.02); EST Glomerular Filtration Rate 71 mL/min (>60); Est Glom Filt Rate - Afr Amer 86 mL/min (>60); Estimated Creatinine Clearance 58.57 ml/min; Glucose 303 mg/dL (74-106); Potassium 4.9 mmol/L (3.5-5.1); Sodium Level 123 mmol/L (136-145)
[2020-07-27 06:46] LABS: Bedside Glucose 279 mg/dL (70-110)
[2020-07-27 06:56] VITALS: PULSE 68; RESP 18; O2SAT 95
[2020-07-27] MEDS: Ipratropium/Albuterol Sulfate 3 ML AMPUL.NEB INHALATION ×2 (06:56→11:27)
[2020-07-27 08:00] VITALS: BP 178/86; PULSE 68; RESP 18; TEMP 36.6; O2SAT 95
[2020-07-27] MEDS: Fluticasone 0.05% 1 SPRAY NASAL.SRY NASAL (08:02)
[2020-07-27] MEDS: guaiFENesin 1,200 MG Tablet 1200 MG PO (08:04)
[2020-07-27] MEDS: Pantoprazole Sodium 20 MG Tablet PO (08:04)
[2020-07-27] MEDS: Aspirin 81 MG TAB.CHEW PO (08:04)
[2020-07-27 08:05] VITALS: PULSE 68
[2020-07-27] MEDS: Lisinopril 5 MG Tablet PO (08:05)
[2020-07-27] MEDS: Sodium Chloride 1 GM Tablet PO (08:05)
[2020-07-27] MEDS: Metoprolol Tartrate 25 MG Tablet PO (08:05)
[2020-07-27] MEDS: ALPRAZolam 0.25 MG Tablet PO (08:16)
[2020-07-27] MEDS: Enoxaparin 40 MG/0.4 ML Syringe SC (08:16)
--- NOTE | 2020-07-27 11:16 | DCINST_ITS ---
- Discharge Diagnoses Current Active Problems: Current Active and Chronic Problems (Last Reviewed 06/04/20 @ 14:[address] Rickey Rubio MD) Lung neoplasm (Acute) COPD exacerbation (Chronic) Mediastinal mass (Acute) Obesity (Chronic) Diabetic polyneuropathy associated with type 2 diabetes mellitus (Chronic) Diabetes (Chronic) Presence of stent in coronary artery (Chronic ~05/2011) PTCA/stent x2 to prox LAD 05/2011 Atherosclerosis of [place] coronary artery of [place] heart without angina pectoris (Chronic) Hyperlipidemia (Chronic) Type II diabetes mellitus (Chronic) You will use the following diet at home:: Calorie/Carbohydrate Controlled (specify 1200, 1400, etc) - 1800 ishan, Other - restrict fluid intake to 2 liters daily Discharge Activity: Return to Normal Activity Weight Bearing Status: Full weight bearing Allergies/Adverse Reactions: Allergies No Known Allergies Allergy (Verified 07/24/20 15:54) Medications to take at Discharge ALPRAZolam [Xanax] 0.25 mg PO BID PRN 07/03/13 Lisinopril [Zestril] 5 mg PO DAILY 07/03/13 Nitroglycerin (INPATIENT USE) [Nitrostat] 0.4 mg SUBLINGUAL Q5M PRN 07/03/13 fluoxetine 40 mg capsule 40 mg PO DAILY 12/25/17 metoprolol tartrate 25 mg tablet 25 mg PO BID #60 tab 08/14/19 Albuterol Sulfate [Albuterol Sulfate HFA] 2 puff INHALATION Q4H PRN PRN 11/20/19 Dicyclomine HCl [Bentyl] 10 - 20 mg PO TID PRN PRN 11/20/19 Metformin HCl 1,000 mg PO BID 11/20/19 Pantoprazole Sodium [Protonix] 20 mg PO DAILY 11/20/19 busPIRone [Buspar] 5 mg PO TID 11/20/19 atorvastatin 40 mg tablet 40 mg PO QHS #90 tab 12/23/19 budesonide-formoterol HFA 160 mcg-4.5 mcg/actuation aerosol inhaler 2 puff INHALATION BID 03/09/20 meclizine 25 mg tablet 25 mg PO DAILY PRN 03/09/20 dulaglutide 1.5 mg/0.5 mL subcutaneous pen injector 1.5 mg SC WE #2 ml 06/04/20 insulin aspart U-100 100 unit/mL (3 mL) subcutaneous pen 20 unit SC TID #18 ml 06/04/20 Insulin Glargine,Hum.rec.anlog [Lantus Solostar] 25 unit SC QAM 07/24/20 pen needle, diabetic 32 gauge x See Rx Instructions .ROUTE .MEDSUPPLY #150 ea 07/24/20 Aspirin [Aspirin, Baby] 81 mg PO DAILYCM tab.chew 07/27/20 levoFLOXacin tablet [Levaquin tablet] 500 mg PO DAILY@0600 #2 tab 07/27/20 predniSONE tablet 20 mg PO UD #15 tab 07/27/20 The following prescriptions were given: levoFLOXacin tablet [Levaquin tablet] 500 mg PO DAILY@0600 #2 tab [facility]: [facility] predniSONE tablet 20 mg PO UD #15 tab Transmission Status[facility] [facility] Primary Care Physician: Nataly Aguilar MD [Primary Care Provider] - Please follow up with your Primary Care Physician in: in one week-you will need a BMP checked Test Results: Test results from this visit will be discussed in further detail at your follow- up appointment, if applicable. Please Follow Up With: Craig Pretty MD When: in two weeks
[2020-07-27 11:28] VITALS: PULSE 73; RESP 18
[2020-07-27 11:46] LABS: Bedside Glucose 327 mg/dL (70-110)
[2020-07-27 13:31] LABS: Pathologist Review Reviewed
[2020-07-27 13:34] VITALS: BP 159/73; PULSE 71; RESP 18; TEMP 36.4; O2SAT 95
--- NOTE | 2020-07-28 12:09 | CASEMGMT ---
[place] PHONE CALL [place] DATE: 07.27.20 DC Disposition: Home Diagnosis on Discharge: COPD, subcarinal mass LACE/STRATA: 04/21 Introduced role of CM to patient via phone. Reviewed medications with patient. She was discussing following up with her specialists- Dr. Rivera, cardiology, Dr. Rubio, salesperson automobiles. The patient would like to switch to [place] PCP and will make own call for this. Patient does not need any phone numbers or assistance with this. Pt has medications and understands purpose and directions. Patient very talkative. No care improvement concerns. Coy ABDIN RN ACM
--- NOTE | 2020-07-28 17:42 | DS.PCM_ITS ---
Discharge Date and Diagnosis - Problem List Patient Problems: Active and Suspected Problems (Last Reviewed 06/04/20 @ 14:[address] Rickey Rubio MD) Lung neoplasm (Acute) Mediastinal mass (Acute) Date of Admission: 07/24/20 Date of Discharge: 07/27/20 - Primary Discharge Diagnosis Acute Problems: Active Problems (Last Reviewed 06/04/20 @ 14:[address] Rickey Rubio MD) #1 acute exacerbation of COPD #2 hyponatremia-etiology unclear #3 subcarinal mass-etiology unknown #4 type 2 diabetes - Secondary Discharge Diagnosis Chronic Problems: Chronic Problems (Last Reviewed 06/04/20 @ 14:[address] Rickey Rubio MD) COPD exacerbation (Chronic) Obesity (Chronic) Diabetic polyneuropathy associated with type 2 diabetes mellitus (Chronic) Diabetes (Chronic) Presence of stent in coronary artery (Chronic ~05/2011) PTCA/stent x2 to prox LAD 05/2011 Atherosclerosis of [place] coronary artery of [place] heart without angina pectoris (Chronic) Hyperlipidemia (Chronic) Type II diabetes mellitus (Chronic) Hospital Course and Treatment Operations: None Procedures: None Summary of Care Provided: The patient is a 60 year old F who was seen in the emergency room at [facility] with a chief complaint of shortness of breath. She had a pulse oximetry machine at home which showed 80% on room air, patient was on no oxygen at home. Patient has a history of COPD. Work-up in the emergency room included an EKG which showed a normal sinus rhythm of 73 without ischemic changes, chest x-ray showed atelectasis, CBC showed a white count elevation of 14.3, D-dimer was elevated at 0.54, Covid test was negative. Patient underwent a CT of the chest which showed a large subcarinal mass extending into the right hilar region-etiology of this mass was unknown. Patient was given IV Solu- Medrol and fluids, her pulse ox was 88% on room air she was placed on supplemental oxygen and admitted to [place] [address]. Patient was treated with IV corticosteroids, antibiotics, and aerosol treatments, she was seen in consultation by pulmonary medicine. Pulmonary medicine did not want to perform further diagnostic testing on the patient and instead wanted to see the patient as an outpatient and proceed with further testing if necessary. On 07/27/2020, patient was seen and examined: On examination she appeared in good health and spirits, she does not appear to be in any distress. Vital signs as documented. Skin warm and dry and without overt rashes. Neck without JVD, thyroid appears normal, trachea is midline, neck is supple. Lungs clear, normal air movement was noted. Heart exam notable for regular rhythm, normal sounds and absence of murmurs, rubs or gallops. Abdomen unremarkable and without evidence of organomegaly, masses, or abdominal aortic enlargement, bowel sounds are present in all 4 quadrants, no abdominal tenderness was noted. Extremities nonedematous, no cyanosis was noted, no clubbing was noted. Neuro: Cranial nerves II through XII are grossly intact, no focal motor deficits were noted, sensation to light touch and pinprick is intact, motor exam 5/5 throughout. Psych: Patient is alert and oriented x3, she does not appear anxious or depressed, she does not appear agitated. Patient appeared stable for discharge on 07/27/2020. Patient Problems: Active and Suspected Problems (Last Reviewed 06/04/20 @ 14:[address] Rickey Rubio MD) Lung neoplasm (Acute) Mediastinal mass (Acute) - Physical Exam Vitals/I&O's: Vital Signs Temp Pulse Resp BP Pulse Ox 97.5 F L 71 18 159/73 H 95 07/27/20 13:34 07/27/20 13:34 07/27/20 13:34 07/27/20 13:34 07/27/20 13:34 Oxygen Flow Rate (L/min) 2 Oxygen Delivery Method Room Air Weight: 96.2 kg Body Mass Index (BMI) 36.3 Intake and Output for Last 24 Hours 07/26/20 07/27/20 07/28/20 23:59 23:59 23:59 Intake Total 1102 / 1102 240 / 240 Balance 1102 / 1102 240 / 240 Discharge Activity: Return to Normal Activity Weight Bearing Status: Full weight bearing Home Medications: Medications to take at Discharge ALPRAZolam [Xanax] 0.25 mg PO BID PRN 07/03/13 Lisinopril [Zestril] 5 mg PO DAILY 07/03/13 Nitroglycerin (INPATIENT USE) [Nitrostat] 0.4 mg SUBLINGUAL Q5M PRN 07/03/13 fluoxetine 40 mg capsule 40 mg PO DAILY 12/25/17 metoprolol tartrate 25 mg tablet 25 mg PO BID #60 tab 08/14/19 Albuterol Sulfate [Albuterol Sulfate HFA] 2 puff INHALATION Q4H PRN PRN 11/20/19 Dicyclomine HCl [Bentyl] 10 - 20 mg PO TID PRN PRN 11/20/19 Metformin HCl 1,000 mg PO BID 11/20/19 Pantoprazole Sodium [Protonix] 20 mg PO DAILY 11/20/19 busPIRone [Buspar] 5 mg PO TID 11/20/19 atorvastatin 40 mg tablet 40 mg PO QHS #90 tab 12/23/19 budesonide-formoterol HFA 160 mcg-4.5 mcg/actuation aerosol inhaler 2 puff INHALATION BID 03/09/20 meclizine 25 mg tablet 25 mg PO DAILY PRN 03/09/20 dulaglutide 1.5 mg/0.5 mL subcutaneous pen injector 1.5 mg SC WE #2 ml 06/04/20 insulin aspart U-100 100 unit/mL (3 mL) subcutaneous pen 20 unit SC TID #18 ml 06/04/20 Insulin Glargine,Hum.rec.anlog [Lantus Solostar] 25 unit SC QAM 07/24/20 pen needle, diabetic 32 gauge x See Rx Instructions .ROUTE .MEDSUPPLY #150 ea 07/24/20 Aspirin [Aspirin, Baby] 81 mg PO DAILYCM tab.chew 07/27/20 levoFLOXacin tablet [Levaquin tablet] 500 mg PO DAILY@0600 #2 tab 07/27/20 predniSONE tablet 20 mg PO UD #15 tab 07/27/20 Following Prescriptions Were Given to Patient: levoFLOXacin tablet [Levaquin tablet] 500 mg PO DAILY@0600 #2 tab [facility] Status: [facility] predniSONE tablet 20 mg PO UD #15 tab [facility] [facility] Primary Care Physician: Nataly Aguilar MD [Primary Care Provider] - Please follow up with your Primary Care Physician in: in one week-you will need a BMP checked Please Follow Up With: Nieves White NP, [employer] When: MONDAY Please Follow Up With: RAMILA AGUILAR MD When: MONDAY Disposition: Home Minutes spent on discharge:: 31 Patient Condition:: Stable Medical Necessity - Tobacco Use Smoking Status: Former smoker Tobacco Use: Non-smoker Meaningful Use Info Meaningful Use Diagnoses (Choose all that apply): None applicable Inpatient E&M: 45537 [facility] Hosp
== END 2020-07-27 13:36 | disposition home or self-care (01) | DRG 140 ==
LOC: ED 17:09 → MS3 19:39
PROVIDERS: Admitting Provider Hospitalist; Emergency Provider Emergency Medicine; PCP Internal Medicine; Visit Provider Internal Medicine
DX: J44.1 Chronic obstructive pulmonary disease with (acute) exacerbation (principal); E11.42 Type 2 diabetes mellitus with diabetic polyneuropathy; I10 Essential (primary) hypertension; I25.10 Atherosclerotic heart disease of native coronary artery without angina pectoris; E22.2 Syndrome of inappropriate secretion of antidiuretic hormone; D49.1 Neoplasm of unspecified behavior of respiratory system; E78.5 Hyperlipidemia, unspecified; E66.09 Other obesity due to excess calories; Z87.891 Personal history of nicotine dependence; F32.9 Major depressive disorder, single episode, unspecified; F41.9 Anxiety disorder, unspecified; E11.65 Type 2 diabetes mellitus with hyperglycemia; R09.02 Hypoxemia; Z68.36 Body mass index [BMI] 36.0-36.9, adult; R59.0 Localized enlarged lymph nodes; T38.0X5A Adverse effect of glucocorticoids and synthetic analogues, initial encounter
CPT/HCPCS: 36415; 71045; 71275; 80048; 80053; 81001; 82533; 82962; 83605; 83880; 83930; 83935; 84300; 84439; 84443; 84481; 84484; 85025; 85379; 87426; 87804; 93005; 94640; 99283; J7030; J7040; Q9967; A4216

== ENCOUNTER → 2020-09-01 15:34 | Outpatient (CLI) | payer MEDICAID, SELFPAY ==
[2020-08-10 13:50] VITALS: BMI 35.3
== END ==
PROVIDERS: PCP Internal Medicine; Referring Provider Nurse Practitioner Acute Care; Visit Provider Nurse Practitioner Acute Care
DX: R51.9 Headache, unspecified (principal)
CPT/HCPCS: 87635; C9803; U0002

== ENCOUNTER → 2020-09-04 12:43 | Outpatient (CLI) | payer MEDICAID, SELFPAY ==
[2020-08-10 13:50] VITALS: BMI 35.3
--- NOTE | 2020-09-04 12:43 | CT_ITS ---
STUDY: CT CHEST WITH CONTRAST REASON FOR EXAM: Female, 60 years old. Follow known mediastinal mass RADIATION DOSAGE (If Supplied By Facility): CTDIvol = ( 15.97 ) mGy, DLP = ( 681.50 ) mGycm TECHNIQUE: Transaxial imaging was performed following intravenous administration of IV 100mL Isovue-370. Multiplanar coronal and sagittal images were reformatted. Individualized dose optimization techniques were used for this CT. COMPARISON: Comparison is made with prior study dated 07/24/2020. FINDINGS: Small benign appearing bilateral axillary lymph nodes. There is a 3.1 cm x 3.9 cm mass in the medial aspect of the right middle lobe. This has increased in size as compared to prior study. Stable mild scarring in the lingular segment of the left upper lobe and right middle lobe. There is no demonstrated pleural abnormality. There are calcifications of the coronary arteries. Since prior examination, there has been enlargement of the mediastinal lymph nodes worse in the subcarinal space. This extends into the right hilar and infrahilar regions. There is narrowing of the right interlobar stem bronchus. Normal enhanced pulmonary arteries. Normal aorta arch and descending thoracic aorta. Normal osseous structures. There is a 1.7 cm nodule in the crux of the left adrenal gland. This is unchanged. Stable right renal cyst. Hepatomegaly. CT/Chest WITH Contrast IMPRESSION: Since prior examination, there has been progressive increase in size of the mediastinal and right hilar lymphadenopathy as well as the mass in the medial aspect of the right middle lobe. The previously seen small bilateral pleural effusions have cleared. Electronically Signed: Carlos Chou MD at 15:07 EDT , Service support ,
[2020-09-04 14:26] LABS: CREATININE FINGERSTICK 1.5 mg/dL (0.55-1.02)
== END ==
PROVIDERS: PCP Internal Medicine; Referring Provider Nurse Practitioner Acute Care; Visit Provider Nurse Practitioner Acute Care
DX: J98.59 Other diseases of mediastinum, not elsewhere classified (principal)
CPT/HCPCS: 71260; Q9967

== ENCOUNTER → 2020-09-07 15:05 | Outpatient (CLI) | payer MEDICAID, SELFPAY ==
[2020-09-07 14:17] VITALS: BMI 34.8
[2020-09-07 15:15] LABS: Platelet Count 372 K/mm3 (150-450)
[2020-09-07 15:35] LABS: International Normalized Ratio 1.1; Prothrombin Time (Protime)PT. 13.7 SECONDS (11.7-14.9)
[2020-09-07 15:36] LABS: Partial Thromboplast Time 25.2 Seconds (24.1-36.2)
== END ==
PROVIDERS: PCP Internal Medicine; Referring Provider Nurse Practitioner Acute Care; Visit Provider Nurse Practitioner Acute Care
DX: R06.02 Shortness of breath (principal)
CPT/HCPCS: 36415; 85049; 85610; 85730

== ENCOUNTER 2020-09-11 11:16 | Day surgery (SDC) | payer MEDICAID, SELFPAY ==
[2020-09-07 14:17] VITALS: BMI 34.8
[2020-09-11] VITALS (8 sets, daily range): BP systolic 91–136; BP diastolic 57–70; PULSE 73–78; RESP 16–18; TEMP 36.3–37.2; O2SAT 92–95; BMI 34.5
--- NOTE | 2020-09-11 | ASPIG_PTH ---
PATIENT: CAPRI CORONEL LOC: EN U#:[id number] AGE/SX: 60/F ROOM: RE09/11/[address]: Dr. Craig Pretty MD : 1960 BED: DIS: 09/11/2020 SPEC #: [id number] RECD: 09/11/20 13:15 STATUS: GILBERTO WENDY #: [id number] RANJIT: 09/11/20 00:[address]: Craig Pretty DEPT: CYTOLOGY RECD BY: Dutch Workman ENTERED: 09/11/20 13:16 SP TYPE: ASP OUT OTHR DR: Dr. Sarah Duarte MD Tissues: A - Lung, NOS B - Lung, NOS C - Lung, NOS Procedures: FNA Specimen Adequacy Special Stain Group II Surgery Specimen Level IV Cytology Other HEADER OPERATION: EBUS PRE-OP DIAGNOSIS: Mediastinal adenopathy TISSUE SUBMITTED: A - EBUS, TBNA, site 10L #1, B - EBUS, TBNA, site 10L #2, C - EBUS, TBNA, site 10L DIAGNOSIS CYTOLOGY A. 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 B. EBUS, TBNA, site 10L #2 (smears): A few malignant cells present derived from small cell carcinoma. C. EBUS, TBNA, site 10L fluid (cell block): Small cell carcinoma. See comment. SJ:killian 09/14/2020 COMMENT The specimen is evaluated at the time of procedure by Dr. Pope. Rapid Onsite Evaluation: A. 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 B. 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 C. Immunohistochemistry ([id number]) supports the above diagnosis. Molecular studies on the tumor can be performed if clinically indicated. Please notify the laboratory if they are needed. Case has been reviewed in consultation with Dr. Garza who concurs with the above diagnosis. IDC:AM CYTOLOGY STUDY Slides are reviewed. CYTOLOGY GROSS A - Received labeled with the patient's name and and designated EBUS, TBNA, site 10L #1. The specimen consists of two stained smears for DICK (Rapid Onsite Evaluation). B - Received labeled with the patient's name and and designated EBUS, TBNA, site 10L #2. The specimen consists of two stained smears for DICK. C - Received in RPMI is 20 ml of pink, needle rinsed fluid labeled with the patient's name and and designated EBUS, TBNA, site 10L. The specimen is submitted for cell block preparation. / TIMOTHY:killian 09/11/2020 TC:0 CPT: 70535, 73889, 68546, 41598
--- NOTE | 2020-09-11 | IMM_PTH ---
PATIENT: CAPRI CORONEL LOC: EN U#:[id number] AGE/SX: 60/F ROOM: RE09/11/[address]: Dr. Craig Pretty MD : 1960 BED: DIS: 09/11/2020 SPEC #: [id number] RECD: 09/14/20 13:48 STATUS: GILBERTO REQ #: [id number] RANJIT: 09/11/20 00:[address]: Craig Pretty DEPT: IMMUNOHISTOCHEMISTRY RECD BY: Eveline Dorado ENTERED: 09/14/20 13:49 SP TYPE: IMMUNO OTHR DR: Dr. Sarah Duarte MD Tissues: C - Lung, NOS Procedures: Synapto (add) CD45 (add) CD56 (add) CHROMO (add) CK20 (add) CK7 (add) CK8 (add) TTF1 (add) Pankeratin (initial) PHYSICIAN & INSTITUTION [place] [id number] SPECIMEN INFORMATION: Tissue Source: C - EBUS, TBNA, site 10L Clinical Info: Mediastinal adenopathy Specimen Number: [id number] [facility] code: [id number], [id number] x8 METHODOLOGY: Deparaffinized sections of prefer/formalin-fixed tissue or PAP/DQ stained slides are incubated with monoclonal/polyclonal antibodies/oligonucleotide probes. Localization is made via biotin free immunoperoxidase method. Appropriate controls are performed and reacted as expected. Results on target cell population are indicated in the following table: RESULTS: ANTIBODY / CLONE RESULT Block C AE1-3 (AE1/AE3/PCK26) positive, weak CK7 (OV-TL12/30) positive CK8 (64isybI90) positive CK20 (KS20.8) negative CD45 (RP2/18) negative CD56 (123C3.D5) positive Chromo (LK2H10) positive Synapto (polyclonal) positive TTF-1 (8G7G3/1) positive These tests were developed and their performance characteristics determined by [facility]. They may not have been cleared or approved by the U.S. Food and Drug Administration. The FDA has determined that such clearance or approval is not necessary. The above immunohistochemical/dualISH markers are ordered and reviewed by the Pathologist. INTERPRETATION: C. EBUS, TBNA, site 10L fluid (cell block): Small cell carcinoma. SJ:killian 09/15/2020
[2020-09-11] MEDS: Lactated Ringers 1,000 ML 100 ML IV (12:12)
[2020-09-11 12:20] LABS: Bedside Glucose 183 mg/dL (70-110)
--- NOTE | 2020-09-11 13:31 | OP.BRONCH_ITS ---
Patient Name: Heather Sinha Procedure Date: 09/11/2020 12:19 PM Date of : 1960 Age: 60 Procedure: Bronchoscopy Indications: Mediastinal adenopathy Providers: Craig Pretty MD Referring MD: Sarah Duarte MD Medicines: General Anesthesia Complications: No immediate complications Procedure: Pre-Anesthesia Assessment: - A History and Physical has been performed. The patient's medications, allergies and sensitivities have been reviewed. - The risks and benefits of the procedure and the sedation options and risks were discussed with the patient. All questions were answered and informed consent was obtained. After I obtained informed consent, the scope was passed under direct vision. Throughout the procedure, the patient's blood pressure, pulse, and oxygen saturations were monitored continuously. The ultrasound bronchoscope was introduced through the mouth, via laryngeal mask airway and advanced to the tracheobronchial tree. The procedure was accomplished without difficulty. The patient tolerated the procedure well. Findings: The laryngeal mask airway is in good position. The vocal cords appear normal. The subglottic space is normal. The trachea is of normal caliber. The ender is sharp. The tracheobronchial tree was examined to at least the first subsegmental level. Bronchial mucosa and anatomy are normal; there are no endobronchial lesions, and no secretions. The laryngeal mask airway is in good position. The vocal cords appear normal. The subglottic space is normal. The trachea is of normal caliber. The ender is sharp. The tracheobronchial tree of the left lung was examined to at least the first subsegmental level. Bronchial mucosa and anatomy are normal; there are no endobronchial lesions, and no secretions. A small plaque was found in the left mainstem bronchus. No biopsy was obtained given the DICK diagnosis of small cell. The scope was withdrawn and replaced with the EBUS bronchoscope to accomplish the ultrasound examination. Lymph Nodes: An endobronchial ultrasound endoscope was utilized to systematically examine the right lower paratracheal region (level 4R), subcarinal mediastinum (level 7) and left hilar region (level 10L) in order to assist with guiding the biopsy needle. Lymph node sizing was performed via endobronchial ultrasound for suspected lung cancer. Sampling by transbronchial needle aspiration was also performed using an Olympus EBUS-TBNA 19 gauge needle in the left hilar region (level 10L) and sent for routine cytology. - The 10L (hilar) node was 20 mm by EBUS. Two samples with the needle were obtained. - The 7 (subcarinal) node was 55 mm by EBUS. Sampling was not done as it was not clinically indicated. - The 4R (lower paratracheal) node was 33 mm by EBUS. Sampling was not done as it was not clinically indicated. Lymph Nodes: Lymph Nodes: Rapid On-Site Evaluation (DICK): Preliminary cytology was suggestive of small cell carcinoma (final results are pending) in the left hilar region (level 10L). Impression: - Mediastinal adenopathy - The airway examination was normal. - The airway examination of the left lung was normal. - A plaque was found in the left mainstem bronchus. - Endobronchial ultrasound was performed. - Lymph node sizing and sampling was performed. Tissue was obtained from this exam. The preliminary diagnosis is highly suspicious for malignancy. 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 Recommendation: - The patient will be observed post-procedure, until all discharge criteria are met. - Discharge patient to home (ambulatory). - Await cytology results. Procedure Code(s): --- Professional --- 01223, Bronchoscopy, rigid or flexible, including fluoroscopic guidance, when performed; with endobronchial ultrasound (EBUS) guided transtracheal and/or transbronchial sampling (eg, aspiration[s]/biopsy[ies]), one or two mediastinal and/or hilar lymph node stations or structures Diagnosis Code(s): --- Professional --- R59.0, Localized enlarged lymph nodes J98.09, Other diseases of bronchus, not elsewhere classified R09.89, Other specified symptoms and signs involving the circulatory and respiratory systems CPT copyright 2017 [employer]. All rights reserved. The codes documented in this report are preliminary and upon electronic systems security assessment review may be revised to meet current compliance requirements. MD Craig Ron MD 09/11/2020 1:30:53 PM This report has been signed electronically. Number of Addenda: 0 Note Initiated On: 09/11/2020 12:19 PM
[2020-09-11 13:35] LABS: Bedside Glucose 177 mg/dL (70-110)
--- NOTE | 2020-09-15 10:59 | HP.PCM_ITS ---
Problem List (1) Mediastinal mass Status: Acute (2) Anxiety and depression Status: Chronic (3) Atherosclerosis of rosebud coronary artery of rosebud heart without angina pectoris Status: Chronic (4) Carcinoma, lung Status: Chronic (5) Diabetes Status: Chronic Qualifiers: (6) Diabetic polyneuropathy associated with type 2 diabetes mellitus Status: Chronic (7) Hyperlipidemia Status: Chronic Qualifiers: (8) Hypertension Status: Chronic (9) Obesity Status: Chronic Qualifiers: (10) Type II diabetes mellitus Status: Chronic History and Physical Date of Admission: 09/11/20 Patient was seen and examined prior to the endoscopy. All questions were answered prior to initiation of the procedure and signing of the consent. No major changes were noted from documentation listed below. Assessment & Plan 1. Mediastinal mass J98.59 Plan Progressed. Discussed test results with the patient and her significant other. She is agreeable to an endobronchial ultrasound-guided biopsy. Need to obtain some blood work today to make sure that she is not at greater risk than the average person for bleeding during the procedure. She will need to hold her aspirin beginning today. She has a previously scheduled follow-up with Dr. Pretty November 02, 2020. This case was discussed with Dr. Pretty. The patient conveys understanding and is agreeable with this plan. I have spent 40 minutes today reviewing labs, records and history. Time includes coordinating care, interpretation of tests, discussion with patient's other healthcare provider. This also includes time I spent with the patient for exam, treatment plan and education as well as documenting clinical information. Orders Orders: Bronchoscopy Today 2. COPD exacerbation J44.1 Plan She does sound to be in an exacerbation of her COPD secondary to a sinusitis. She is going to be treated with Augmentin and a prednisone taper. No change in her maintenance medications. She needs to reschedule her pulmonary function test as she was too ill to complete it. Plan Detail Other Orders Orders: Partial Thromboplast Time Today R06.02 Prothrombin Time w/INR Today R06.02 Platelet Count Today R06.02 Other Medications New: prednisone take 4 tabs for three days, then 3 tabs for three days, then 2 tabs for three days, then 1 tab for 3 days 10 mg PO QDAY 30 tabs 0RF amoxicillin-pot clavulanate 875-125 mg (Augmentin) 1 TAB PO BID [address] results: Chief Complaint: Cough HPI Comments Details: This patient presents to the office today to discuss recent test results. She is ambulatory, currently on room air and accompanied today by her significant other. She completed the antibiotics that was ordered at her last office visit. She has not been on any additional systemic corticosteroids. She has not been seen in the ED or urgent care recently for any breathing problems. She is compliant with the use of Symbicort 2 puffs twice daily. She reports rinsing her mouth out after each use. She denies any medication side effect such as sore throat or thrush. She is currently utilizing her rescue inhaler 1- 2 times daily. She does have shortness of breath on exertion. She has a cough that is productive of yellow to green-colored sputum. She is also blowing drainage from her nose that is yellow to green-colored. She has sinus pressure. She is wheezing and chest tightness but denies any chest pain or palpitations. She has not had any fever, chills or body aches. Test results personally reviewed with the patient: CT of the chest with contrast completed on September 04, 2020. Noted is a 3.1 cm x 3.9 cm mass in the medial aspect of the right middle lobe. This has increased in size as compared to prior study. There has been enlargement of the mediastinal lymph nodes worse in the subcarinal space. There is also a 1.7 cm nodule in the crux of the left adrenal gland, this is unchanged. Stable right renal cyst. Intake Vital Signs 09/07/20 Height 5 ft 4 in 09/07/20 Weight: 203 lb 09/07/20 BMI 34.8 09/07/20 BP 167/76 H 09/07/20 Blood Pressure Location Rt brachial 09/07/20 Position Sitting 09/07/20 Respiration 20 H 09/07/20 Pulse 84 09/07/20 Pulse Source Monitor 09/07/20 Temp 97.3 F L 09/07/20 Temperature Source Tympanic 09/07/20 Pulse Oximetry (%) 94 09/07/20 Oxygen Delivery Method room air Intake Visit Reasons: ct results Allergies No Known Allergies Allergy (Verified 09/07/20 14:18) Medications ALPRAZolam [Xanax] 0.25 mg PO BID PRN 07/03/13 [History Confirmed 09/07/20] Lisinopril [Zestril] 5 mg PO DAILY 07/03/13 [History Confirmed 09/07/20] Nitroglycerin (INPATIENT USE) [Nitrostat] 0.4 mg SUBLINGUAL Q5M PRN 07/03/13 [History Confirmed 09/07/20] fluoxetine 40 mg capsule 40 mg PO DAILY 12/25/17 [History Confirmed 09/07/20] metoprolol tartrate 25 mg tablet 25 mg PO BID #60 tab 08/14/19 [Rx Confirmed 09/07/20] Albuterol Sulfate [Albuterol Sulfate HFA] 2 puff INHALATION Q4H PRN PRN 11/20/19 [History Confirmed 09/07/20] Dicyclomine HCl [Bentyl] 10 - 20 mg PO TID PRN PRN 11/20/19 [History Confirmed 09/07/20] Metformin HCl 1,000 mg PO BID 11/20/19 [History Confirmed 09/07/20] Pantoprazole Sodium [Protonix] 20 mg PO DAILY 11/20/19 [History Confirmed 09/07/20] busPIRone [Buspar] 5 mg PO TID 11/20/19 [History Confirmed 09/07/20] atorvastatin 40 mg tablet 40 mg PO QHS #90 tab 12/23/19 [Rx Confirmed 09/07/20] budesonide-formoterol HFA 160 mcg-4.5 mcg/actuation aerosol inhaler 2 puff INHALATION BID 03/09/20 [History Confirmed 09/07/20] meclizine 25 mg tablet 25 mg PO DAILY PRN 03/09/20 [History Confirmed 09/07/20] dulaglutide 1.5 mg/0.5 mL subcutaneous pen injector 1.5 mg SC WE #2 ml 06/04/20 [Rx Confirmed 09/07/20] insulin aspart U-100 100 unit/mL (3 mL) subcutaneous pen 20 unit SC TID #18 ml 06/04/20 [Rx Confirmed 09/07/20] Insulin Glargine,Hum.rec.anlog [Lantus Solostar] 25 unit SC QAM 07/24/20 [History Confirmed 09/07/20] pen needle, diabetic 32 gauge x See Rx Instructions .ROUTE .MEDSUPPLY #150 ea 07/24/20 [Rx Confirmed 09/07/20] Aspirin [Aspirin, Baby] 81 mg PO DAILYCM tab.chew 07/27/20 [Rx Confirmed 09/07/20] amoxicillin 875 mg-potassium clavulanate 125 mg tablet 1 tablet PO BID #20 tablet 09/07/20 [Rx Confirmed 09/07/20] prednisone 10 mg tablet 10 mg PO QDAY #30 tablet 09/07/20 [Rx Confirmed 09/07/20] [facility] Medical History (Reviewed 09/07/20 @ 14:26 by Nieves White BARREL RIFLER OPERATOR, BARREL RIFLER OPERATOR-C) Presence of stent in coronary artery (Chronic ~05/2011) Atherosclerosis of rosebud coronary artery of rosebud heart without angina pectoris (Chronic) Angina pectoris (Resolved) Abnormal cardiovascular stress test (Resolved) Hyperlipidemia (Chronic) Type II diabetes mellitus (Chronic) Hiatal hernia (Chronic) Surgical History (Reviewed 09/07/20 @ 14:26 by Nieves White BARREL RIFLER OPERATOR, BARREL RIFLER OPERATOR-C) Presence of coronary angioplasty implant and graft (Chronic) H/O arthroscopic knee surgery (Resolved) H/O elbow surgery (Resolved) History of carpal tunnel surgery (Resolved) History of cholecystectomy (Resolved) History of lumbar surgery (Resolved) History of tubal ligation (Resolved) Family History (Reviewed 09/07/20 @ 14:26 by Nieves White BARREL RIFLER OPERATOR, BARREL RIFLER OPERATOR-C) Father , Age 56 Myocardial infarction Heart disease COPD (chronic obstructive pulmonary disease) Mother COPD (chronic obstructive pulmonary disease) Heart disease Social History (Updated 09/07/20 @ 15:00 by Nieves White BARREL RIFLER OPERATOR, BARREL RIFLER OPERATOR-C) Smoking Status: Former smoker quit date: 06/19/13 pack-years: 35 how long ago did patient quit smokin years ago alcohol intake: never substance use type: does not use caffeine: Yes Type: carbonated beverages Number of servings: 2, coffee Number of servings: 2 Review of Systems Resp Respiratory: Yes as per HPI Exam Const Constitutional: Positive conversant, cooperative, in no acute respiratory distress, well developed, well nourished, good hygiene, frail appearing and obese Head Head: Yes normocephalic, Yes atraumatic Eyes Eye: Positive clear conjunctiva; negative nystagmus Ears Ear: Positive hearing normal and external ears normal Neck Neck: Positive normal visual inspection, full ROM and trachea midline; negative lymphadenopathy, JVD or tender Chest Wall Chest: Positive normal inspection of the chest and symmetric chest movement; negative increased A/P diameter Resp lung sounds: Positive diminished, prolonged expiratory time and normal chronic state of increased work of breathing; negative rhonchi, rales or use of accessory muscles Cardio Cardiac: Positive regular rate, regular rhythm, S1 normal and S2 normal; negative murmur GI GI: Positive normal to inspection and obese; negative distended Genitourinary: Positive deferred Musc Musculoskeletal: Positive steady gait and ROM normal; negative kyphosis or scoliosis Skin Pulmonary Skin Exam: Positive intact; negative lesion, rash or ulcers Extremities Extremities: No clubbing, No cyanosis Neuro Neurologic: Yes no focal neuro deficits, Yes conversant, Yes cooperative, Yes normal cognition, Yes normal coordination, Yes normal concentration, Yes understands questions Psych Appearance: Positive grossly normal, eye contact and well kempt Mental Status: Positive mental status grossly normal Mood: Positive congruent mood Affect: Positive normal affect
== END 2020-09-11 14:33 | disposition home or self-care (01) ==
LOC: EN 11:16 → AC 11:18
PROVIDERS: PCP Internal Medicine; Referring Provider Internal Medicine; Visit Provider Internal Medicine Critical Care Medicine
PROC: BB4BZZZ Ultrasonography of Pleura (ICD-10-PCS; CPT 31652; principal; 2020-09-11 12:00)
DX: C34.02 Malignant neoplasm of left main bronchus (principal); R59.0 Localized enlarged lymph nodes; R09.89 Other specified symptoms and signs involving the circulatory and respiratory systems; J98.09 Other diseases of bronchus, not elsewhere classified; F41.9 Anxiety disorder, unspecified; F32.9 Major depressive disorder, single episode, unspecified; I25.10 Atherosclerotic heart disease of native coronary artery without angina pectoris; Z79.4 Long term (current) use of insulin; Z79.899 Other long term (current) drug therapy; Z79.82 Long term (current) use of aspirin; Z79.52 Long term (current) use of systemic steroids; E78.5 Hyperlipidemia, unspecified; E11.42 Type 2 diabetes mellitus with diabetic polyneuropathy; I10 Essential (primary) hypertension; E66.9 Obesity, unspecified; J44.9 Chronic obstructive pulmonary disease, unspecified; Z68.34 Body mass index [BMI] 34.0-34.9, adult; Z87.891 Personal history of nicotine dependence
CPT/HCPCS: 31652; 82962; 88161; 88172; 88305; 88313; 88341; 88342; J7120; J2405

== ENCOUNTER → 2020-09-25 06:25 | Outpatient (CLI) | payer MEDICAID, SELFPAY ==
[2020-09-17 08:42] VITALS: BMI 34.4
--- NOTE | 2020-09-25 06:26 | MRI_ITS ---
STUDY: MRI BRAIN WITH AND WITHOUT CONTRAST REASON FOR EXAM: Female, 60 years old. STAGING-LUNG CANCER, NO HEAD COMPLAINTS TECHNIQUE: Standardized multiplanar fat and water weighted pulse sequences were obtained. IV 19 cc dotarem was administered for the contrast portion of the examination. COMPARISON: None. FINDINGS: Normal size of the ventricles and extra-axial spaces for the patient''s age. There are a limited number of small white matter hyperintensities, distributed throughout the deep white matter tracts of the cerebral hemispheres, consistent with mild chronic white matter ischemic changes. Normal bilateral basal ganglia. Normal thalami. There is no extra-axial fluid accumulation. There is an enhancing lesion within the right cavernous sinus most likely represents a right ICA aneurysm measuring 1.4 cm in diameter. Normal venous enhancement. There is no enhancing intra-axial or extra-axial abnormality. Normal sella turcica, pituitary gland, infundibular stalk, optic chiasm and hypothalamus. Normal tectal plate and pineal gland. Normal midbrain, cinthya and medulla. Normal cerebellum. Normal basal cisterns. Normal bilateral temporal bones. Normal bilateral internal auditory canals. No demonstrated orbital abnormality, within the constraints of a routine brain study. Normal visualized paranasal sinuses. Normal calvarium and skull base. Normal visualized soft tissue structures. Normal visualized upper cervical spine. MRI/Brain W/WO Contrast IMPRESSION: Right ICA aneurysm likely within the cavernous segment measuring 1.4 cm. There is no evidence of intracranial metastasis. Electronically Signed: Marcello Maddox MD at 14:00 EDT Tel , Service support ,
== END ==
PROVIDERS: PCP Internal Medicine; Referring Provider Internal Medicine Medical Oncology; Visit Provider Internal Medicine Medical Oncology
DX: C34.2 Malignant neoplasm of middle lobe, bronchus or lung (principal)
CPT/HCPCS: 70553; A9575

== ENCOUNTER 2020-10-20 02:19 | Inpatient (IN) | payer MEDICAID, SELFPAY ==
[2020-10-19 09:12] VITALS: BMI 35.7
[2020-10-20] VITALS (52 sets, daily range): BP systolic 101–190; BP diastolic 63–99; PULSE 59–160; RESP 16–43; TEMP 35.7–37.1; O2SAT 50–100; BMI 35.5; BMI 35.9
--- NOTE | 2020-10-20 02:19 | RAD_ITS ---
STUDY: X-RAY CHEST REASON FOR EXAM: Female, 60 years old. sob TECHNIQUE: Single AP portable view of the chest. COMPARISON: 07/24/2020. FINDINGS: The lungs are normally expanded with bilateral diffuse interstitial prominence and fullness of the central vessels concerning for interstitial pulmonary edema. There is bilateral perihilar and right basilar atelectasis. There is mild right-sided pleural effusion. There is mild cardiac enlargement. Normal mediastinum and melinda. There is atherosclerotic calcification of the aortic arch with tortuosity. There are diffuse degenerative changes of the visualized thoracic spine. Normal visualized ribs, clavicles, and shoulders. There is no demonstrated abnormality of the visualized soft tissue structures of the upper abdomen. RAD/Chest 1 View (Portable) IMPRESSION: Findings suggestive of interstitial pulmonary edema with bilateral atelectasis as described. Cannot exclude superimposed pneumonitis. Electronically Signed: Maribel Guardado MD at 2:50 EDT , Service support ,
--- NOTE | 2020-10-20 02:21 | EKG12_ITS ---
Test Reason : SOB Blood Pressure : / mmHG Vent. Rate : 104 BPM Atrial Rate : 104 BPM P-R Int : 160 ms QRS Dur : 096 ms QT Int : 358 ms P-R-T Axes : 050 -71 037 degrees QTc Int : 470 ms Sinus tachycardia with Premature supraventricular complexes Left anterior fascicular block Anteroseptal infarct , age undetermined Abnormal ECG Confirmed by MYLES KAN, BROCK ([id number]), editor at large JOSE GUADALUPE ALLEN ([id number]) on 10/21/2020 9:03:31 AM Referred By: IDALMIS KAN Confirmed By:BROCK BUENO MD
--- NOTE | 2020-10-20 02:31 | ED.VIS.DYS ---
HPI History of Present Illness Chief Complaint: Shortness of Breath Informant: patient and EMS Onset/Context/Timing Onset: Today Context: gradual Timing: Continuous Quality: Positive for Dyspnea on exertion and Wheezing Current Severity: Severe Maximum Severity: Severe Associated Symptoms cough Narrative Narrative: The patient is a 60-year-old female with medical history significant for diabetes, hypertension, hyperlipidemia, COPD who is on home oxygen, along with small cell lung cancer who is currently undergoing evaluation for treatment that presents to the emergency department with shortness of breath. Tonight, the patient felt like she cannot catch her breath. On squad arrival, the patient was tachypneic and tripoding. She had a pulse ox in the 50s. They try to transition to nonrebreather and cannot get her pulse ox higher than 88%. She was transitioned to a CPAP and brought in for further evaluation. History is hard to gather from the patient given her significant respiratory distress. [facility] Medical History Abnormal cardiovascular stress test Angina pectoris Anxiety Atherosclerosis of [place] coronary artery of [place] heart without angina pectoris Cancer Carcinoma, lung COPD (chronic obstructive pulmonary disease) Coronary artery disease Depression DVT (deep venous thrombosis) Edema Former smoker GERD (gastroesophageal reflux disease) Hiatal hernia History of fatty infiltration of liver Hyperlipidemia Hypertension Injury of head and neck Loose, teeth Myocardial infarct Oxygen dependent Presence of stent in coronary artery (~05/2011) Restless legs Shortness of breath on exertion Syncope Type II diabetes mellitus Home Medications nitroglycerin 0.4 mg SL Q5M PRN 07/03/13 [History Last Taken 06/19/12 0.4] metoprolol tartrate 25 mg tablet 25 mg PO BID #60 tablet 08/14/19 [Rx Last Taken 09/11/20 07:00 25 MG] albuterol sulfate 2 puff INHALATION Q4H PRN PRN 11/20/19 [History Last Taken 11/20/19] buspirone 5 mg PO TID 11/20/19 [History Last Taken 09/11/20 07:00 5 MG] dicyclomine 10 - 20 mg PO TID PRN PRN 11/20/19 [History Last Taken 11/20/19] metformin 1,000 mg PO BID 11/20/19 [History Last Taken 11/20/19] pantoprazole 20 mg PO DAILY 11/20/19 [History Last Taken 11/20/19] atorvastatin 40 mg tablet 40 mg PO QHS #90 tablet 12/23/19 [Rx Last Taken Unknown] budesonide-formoterol HFA 160 mcg-4.5 mcg/actuation aerosol inhaler 2 puff INHALATION BID 03/09/20 [History Last Taken Unknown] meclizine 25 mg tablet 25 mg PO DAILY PRN 03/09/20 [History Last Taken Unknown] insulin aspart U-100 100 unit/mL (3 mL) subcutaneous pen 20 unit SC TID #18 ml 06/04/20 [Rx Last Taken Unknown] insulin glargine 25 unit SC QAM 07/24/20 [History Last Taken Unknown] dulaglutide 1.5 mg SC TH 09/08/20 [History Last Taken Unknown] alprazolam 0.5 mg tablet 0.25 mg PO DAILY PRN tablet 09/14/20 [History Last Taken Unknown] aspirin 325 mg tablet 325 mg PO DAILY 09/14/20 [History Last Taken 10/15/20 08:50] fluoxetine 20 mg capsule 60 mg PO DAILY 90 Days #270 cap 09/14/20 [Rx Last Taken Unknown] lisinopril 5 mg tablet 5 mg PO DAILY #90 tablet 10/05/20 [Rx Last Taken Unknown] sodium chloride 1 gram tablet 1 g PO DAILY 30 Days #30 tablet 10/15/20 [Rx Last Taken Unknown] lidocaine-prilocaine 2.5 %-2.5 % topical cream 1 applic TOPICAL ONCE PRN 30 Days #30 g 10/19/20 [Rx Last Taken Unknown] ondansetron 8 mg disintegrating tablet 8 mg PO Q8H PRN #30 tab 10/19/20 [Rx Last Taken Unknown] prochlorperazine maleate 10 mg tablet 10 mg PO Q6H PRN #30 tab 10/19/20 [Rx Last Taken Unknown] Allergy/AdvReac Type Severity Reaction Status Date / Time No Known Allergies Allergy Verified 10/20/20 02:32 Family History Father , Age 56 Myocardial infarction Heart disease COPD (chronic obstructive pulmonary disease) Mother COPD (chronic obstructive pulmonary disease) Heart disease Surgical History H/O arthroscopic knee surgery H/O elbow surgery History of carpal tunnel surgery History of cholecystectomy History of lumbar surgery History of tubal ligation Hx of biopsy Presence of coronary angioplasty implant and graft Social History household members: spouse housing: house current occupational status: retired Smoking Status: Former smoker quit date: 06/19/13 pack-years: 35 Tobacco: How many years used: 37 how long ago did patient quit smokin years ago second hand exposure: No alcohol intake: never substance use type: does not use caffeine: Yes Type: carbonated beverages Number of servings: 2 and coffee Number of servings: 2 eating out: 1-3 times/week during the past year weight has: increased > 10 lbs lizette/samaritan: Zoroastrian seatbelt use: always do you feel safe at home: Yes ROS ROS ED Review of Systems ROS Unobtainable: other Details: Due to significant work of breathing EXAM Physical Exam Const Vital Signs: 10/20/20 02:20 10/20/20 02:32 10/20/20 02:34 Temperature 96.2 F L 96.2 F L Temperature Source Temporal Temporal Pulse Rate 104 H 100 Respiratory Rate 43 H 37 H Respiratory Effort Accessory Muscle Use Head [place] Respiratory Pattern Tachypnea Blood Pressure 190/94 H 190/94 H Blood Pressure Mean 126 126 Pulse Ox 50 97 Oxygen Delivery Method Room Air Bi-pap Bi-pap Fraction of Inspired Oxygen (FIO2) 90 10/20/20 02:40 Temperature Temperature Source Pulse Rate 108 H Respiratory Rate 40 H Respiratory Effort Respiratory Pattern Tachypnea Blood Pressure Blood Pressure Mean Pulse Ox 96 Oxygen Delivery Method Fraction of Inspired Oxygen (FIO2) 90 Positive well nourished and well developed General Appearance ED: well developed HEENT Reports moist mucous membranes atraumatic; Negative for tenderness Eyes PERRL and EOMs intact bilaterally Neck no lymphadenopathy, supple and no meningeal signs Resp No normal respiratory effort Auscultation: wheezes and diminished lung sounds Cardio regular rate and regular rhythm GI non-tender and non-distended Auscultation: normoactive bowel sounds Palpation: soft Extremity normal to inspection General Extremety ED: Negative for tenderness Neuro oriented x3 and CN's II-XII intact bilaterally Sensorium / Orientation: alert, oriented to person and oriented to place Psych mental status grossly normal Skin Rashes: no rashes MDM MDM MDM Narrative Medical decision making narrative: The patient presents to the emergency department with rather sudden onset shortness of breath. On arrival, the patient was transitioned to BiPAP. She had diminished air movement bilaterally. Chest x-ray was obtained. There is some cephalization and small pleural effusions. It is hard to determine if this is CHF or from her underlying malignancy. The patient had received nebulized breathing treatments and Solu-Medrol given her severe history of COPD. She was also given a small dose of Lasix. Labs were obtained. She does have a leukocytosis of 23,000. I am not sure if this is stress reaction from her significant hypoxia or due to infectious process. Patient was covered with broad-spectrum antibiotics given underlying history of lung disease. Cardiac enzymes are normal. BNP was only minimally elevated. I do for the patient's respiratory failure is multifactorial given her history of COPD and now looks as if she does have some CHF likely from flash pulmonary edema with elevated blood pressure when she was gasping for air. On reevaluation, she is more comfortable. At this time, the patient is going to need admitted to the ICU. Patient was discussed with the hospitalist. Impression 1. COPD exacerbation 2. Hypoxic respiratory failure 3. Pulmonary edema 4. History of small cell lung cancer Lab Data Attestation: I reviewed the patient's lab results. Labs: Laboratory Results - last 24 hr 10/20/20 10/20/20 10/20/20 02:30 02:30 02:30 WBC 23.4 H RBC 4.57 Hgb 12.4 Hct 38.6 MCV 84.5 MCH 27.1 MCHC 32.1 RDW Std Deviation 44.7 H RDW Coeff of [place] 14.6 Plt Count 466 H MPV 9.6 Immature Gran % (Auto) 1.500 H Neut % (Auto) 75.1 H Lymph % (Auto) 14.3 L [place] % (Auto) 7.6 Eos % (Auto) 0.9 Baso % (Auto) 0.6 Absolute Neuts (auto) 17.6 H Absolute Lymphs (auto) 3.34 Nucleated RBC % 0 Diff Path Review May foll Sodium 126 L Potassium 4.3 Chloride 89 L Carbon Dioxide 29.0 Anion Gap 8 BUN 14 Creatinine 0.94 Estim Creat Clear Calc 55.84 Est GFR (MDRD) Af Amer 77 Est GFR (MDRD) Non-Af 64 BUN/Creatinine Ratio 14.8 Glucose 309 H Calcium 8.7 Troponin I 0.015 B-Natriuretic Peptide 167.5 H Radiography Chest X-Ray - ED: 1 View, Read by ED Physician, Read by Radiologist, Normal, Heart, Mediastinum, Bony Structures, Chronic Changes, CHF and Right Effusion Diagnostic Testing: Radiology Impression Chest X-Ray 10/20/20 02:19 IMPRESSION: Findings suggestive of interstitial pulmonary edema with bilateral atelectasis as described. Cannot exclude superimposed pneumonitis. Electronically Signed: Maribel Guardado MD at 2:50 EDT , Service support , EKG Initial EKG: Attestation: I personally reviewed and interpreted this EKG as follows: Interpretation: No Acute Injury Pattern and Sinus Tachycardia Prior EKG tracings: available for review Prior: Unchanged Critical Care Time Critical Care Time: Yes Critical care time (excluding procedures): 30-74 minutes, Including time spent:, Discussing w/Patient &/or Family/Home Health Rn, Discussing w/Consultants, Arranging Admission or Transfer and Performing Direct Patient Care at Bedside Discharge Plan Triage Chief Complaint: Shortness of Breath ED Provider: John Spears Dx/Rx/DC Orders Prescriptions: No Action meclizine 25 mg tablet 25 mg PO DAILY PRN (Reason: Vertigo) RF: 0 insulin aspart U-100 [Novolog Flexpen U-100 Insulin] 100 unit/mL (3 mL) insulin pen 20 unit SC TID Qty: 18 RF: 5 aspirin 325 mg tablet 325 mg PO DAILY RF: 0 fluoxetine 20 mg capsule 60 mg PO DAILY 90 Days Qty: 270 RF: 1 sodium chloride 1 gram tablet 1 g PO DAILY 30 Days Qty: 30 RF: 0 prochlorperazine maleate 10 mg tablet 10 mg PO Q6H PRN (Reason: nausea and vomiting) Qty: 30 RF: 2 ondansetron 8 mg tablet,disintegrating 8 mg PO Q8H PRN (Reason: nausea and vomiting) Qty: 30 RF: 2 lidocaine-prilocaine 2.5-2.5 % cream 1 applic topical ONCE PRN (Reason: Port access ) 30 Days Qty: 30 RF: 2 nitroglycerin 0.4 MG tablet 0.4 mg SL Q5M PRN (Reason: Chest Pain) RF: 0 alprazolam 0.5 mg tablet 0.25 mg PO DAILY PRN (Reason: Anxiety) RF: 0 buspirone 5 MG tablet 5 mg PO TID RF: 0 pantoprazole 20 MG tablet 20 mg PO DAILY RF: 0 metformin 1,000 MG tablet 1,000 mg PO BID RF: 0 albuterol sulfate 90 mcg/actuation HFA aerosol inhaler 2 puff INHALATION Q4H PRN PRN (Reason: Sob &/Or Wheezing) RF: 0 dicyclomine 10 MG capsule 10 - 20 mg PO TID PRN PRN (Reason: stomach) RF: 0 budesonide-formoterol 160-4.5 mcg/actuation HFA aerosol inhaler 2 puff INHALATION BID RF: 0 insulin glargine 100 UNIT/ML insulin pen 25 unit SC QAM RF: 0 dulaglutide 1.5 MG/0.5 ML pen injector 1.5 mg SC TH RF: 0 metoprolol tartrate 25 mg tablet 25 mg PO BID Qty: 60 RF: 12 atorvastatin 40 mg tablet 40 mg PO QHS Qty: 90 RF: 3 lisinopril 5 mg tablet 5 mg PO DAILY Qty: 90 RF: 1 Primary Care Provider: Sarah Duarte
[2020-10-20 02:39] LABS: Absolute Lymphocyte Count 3.34 X10^3/uL (0.83-4.51); Absolute Neutrophil Count 17.6 X10^3/uL (2.0-7.7); Basophil# 0.13 X10^3/uL; Basophil% 0.6 % (0-1); Eosinophil# 0.22 X10^3/uL; Eosinophils% 0.9 % (0-5); Hematocrit 38.6 % (37-47); Hemoglobin 12.4 g/dL (12.0-15.0); Lymphocyte # 3.34 X10^3/ul (0.83-4.51); Lymphocyte % 14.3 % (19-41); Mean Corp Hgb Conc 32.1 g/dL (32-36); Mean Corpuscular Hgb 27.1 pg (27.0-32.0); Mean Corpuscular Volume 84.5 fL (81-99); Mean Platelet Vol. 9.6 fl (6.2-12.0); Monocyte# 1.77 X10^3/uL; Monocyte% 7.6 % (0-10); NRBC Flagged by Analyzer 0 % (0-5); Neutrophil % 75.1 % (47-70); POSITIVE DIFFERENTIAL YES; Platelet Count 466 K/mm3 (150-450); RBC Distribution Width CV 14.6 % (11.6-14.6); RBC Distribution Width SD 44.7 fl (35.1-43.9); Red Blood Count 4.57 M/mm3 (4.2-5.4); White Blood Count 23.4 K/mm3 (4.4-11.0)
[2020-10-20] MEDS: MethylPREDNISolone 125 MG/2 ML Vial IV (02:39)
[2020-10-20] MEDS: Ipratropium/Albuterol Sulfate 3 ML AMPUL.NEB INHALATION ×2 (02:40→07:01)
[2020-10-20] MEDS: Albuterol 2.5 MG/3 ML VIAL.NEB. INHALATION ×3 (02:40→02:52)
[2020-10-20 02:59] LABS: Anion Gap 8 (5-15); BUN 14 mg/dL (7-18); BUN/Creat Ratio 14.8 RATIO (10-20); Calcium,Total 8.7 mg/dL (8.5-10.1); Chloride 89 mmol/L (98-107); Creatinine, Serum 0.94 mg/dL (0.55-1.02); EST Glomerular Filtration Rate 64 mL/min (>60); Est Glom Filt Rate - Afr Amer 77 mL/min (>60); Estimated Creatinine Clearance 55.84 ml/min; Glucose 309 mg/dL (74-106); Potassium 4.3 mmol/L (3.5-5.1); Sodium Level 126 mmol/L (136-145)
[2020-10-20 03:01] LABS: BNP,B-Type NATRIURETIC PEPTIDE 167.5 pg/mL (0-100)
[2020-10-20 03:05] LABS: Differential Indicated SCAN CRITERIA MET
--- NOTE | 2020-10-20 03:17 | ED.RN ---
Patient had run on vtach noted on the monitor. Dr. Spears made aware at this time
[2020-10-20] MEDS: Furosemide 40 MG/4 ML Vial IV (03:31)
[2020-10-20] MEDS: Ceftriaxone 1 GM/50 ML BAG IV (03:31)
--- NOTE | 2020-10-20 03:43 | HP.PCM_ITS ---
HPI - General General Date of Admission: 10/20/20 HPI Narrative CAPRI CORONEL, is a 60 F who presents to the ER with acute difficulty in breathing. Patient has a significant past medical history of non-small cell lung cancer recently diagnosed who plans to undergo chemotherapy treatments. This evening she became acutely short of breath and presented to the emergency room with a pulse ox of 50% and a respiratory rate of 40. It is difficult to obtain more detailed history due to the severity of her respiratory status. During my interview with the patient she was more at ease after having been treated on BiPAP, however, she started having paroxysmal supraventricular tachycardia while I was in the room with heart rate of 220. I excused myself from the room and spoke with the ER physician who started an amiodarone bolus and checked her magnesium level. I was unable to ascertain a CODE STATUS from the patient during this moment. She will be admitted to the ICU for respiratory failure and paroxysmal supraventricular tachycardia. [facility] Medical History Abnormal cardiovascular stress test Angina pectoris Anxiety Atherosclerosis of [place] coronary artery of [place] heart without angina pectoris Cancer Carcinoma, lung COPD (chronic obstructive pulmonary disease) Coronary artery disease Depression DVT (deep venous thrombosis) Edema Former smoker GERD (gastroesophageal reflux disease) Hiatal hernia History of fatty infiltration of liver Hyperlipidemia Hypertension Injury of head and neck Loose, teeth Myocardial infarct Oxygen dependent Presence of stent in coronary artery (~05/2011) Restless legs Shortness of breath on exertion Syncope Type II diabetes mellitus Home Medications nitroglycerin 0.4 mg SL Q5M PRN 07/03/13 [History Last Taken 06/19/12 0.4] albuterol sulfate 2 puff INHALATION Q4H PRN PRN 11/20/19 [History Last Taken 11/20/19] buspirone 5 mg PO TID 11/20/19 [History Last Taken 09/11/20 07:00 5 MG] dicyclomine 10 - 20 mg PO TID PRN PRN 11/20/19 [History Last Taken 11/20/19] metformin 1,000 mg PO BID 11/20/19 [History Last Taken 11/20/19] pantoprazole 20 mg PO DAILY 11/20/19 [History Last Taken 11/20/19] atorvastatin 40 mg tablet 40 mg PO QHS #90 tablet 12/23/19 [Rx Last Taken Unknown] budesonide-formoterol HFA 160 mcg-4.5 mcg/actuation aerosol inhaler 2 puff INHALATION BID 03/09/20 [History Last Taken Unknown] meclizine 25 mg tablet 25 mg PO DAILY PRN 03/09/20 [History Last Taken Unknown] insulin aspart U-100 100 unit/mL (3 mL) subcutaneous pen 20 unit SC TID #18 ml 06/04/20 [Rx Last Taken Unknown] insulin glargine 25 unit SC QAM 07/24/20 [History Last Taken Unknown] dulaglutide 1.5 mg SC TH 09/08/20 [History Last Taken Unknown] alprazolam 0.5 mg tablet 0.25 mg PO DAILY PRN tablet 09/14/20 [History Last Taken Unknown] aspirin 325 mg tablet 325 mg PO DAILY 09/14/20 [History Last Taken 10/15/20 08:50] fluoxetine 20 mg capsule 60 mg PO DAILY 90 Days #270 cap 09/14/20 [Rx Last Taken Unknown] lisinopril 5 mg tablet 5 mg PO DAILY #90 tablet 10/05/20 [Rx Last Taken Unknown] sodium chloride 1 gram tablet 1 g PO DAILY 30 Days #30 tablet 10/15/20 [Rx Last Taken Unknown] lidocaine-prilocaine 2.5 %-2.5 % topical cream 1 applic TOPICAL ONCE PRN 30 Days #30 g 10/19/20 [Rx Last Taken Unknown] ondansetron 8 mg disintegrating tablet 8 mg PO Q8H PRN #30 tab 10/19/20 [Rx Last Taken Unknown] prochlorperazine maleate 10 mg tablet 10 mg PO Q6H PRN #30 tab 10/19/20 [Rx Last Taken Unknown] dulaglutide [Trulicity] 1.5 mg SUBCUT QWEEK 10/20/20 [History Last Taken Unknown] metoprolol tartrate 25 mg PO BID 10/20/20 [History Last Taken Unknown] Allergy/AdvReac Type Severity Reaction Status Date / Time No Known Allergies Allergy Verified 10/20/20 02:32 Family History Father , Age 56 Myocardial infarction Heart disease COPD (chronic obstructive pulmonary disease) Mother COPD (chronic obstructive pulmonary disease) Heart disease Surgical History H/O arthroscopic knee surgery H/O elbow surgery History of carpal tunnel surgery History of cholecystectomy History of lumbar surgery History of tubal ligation Hx of biopsy Presence of coronary angioplasty implant and graft Social History household members: spouse housing: house current occupational status: retired Smoking Status: Former smoker quit date: 06/19/13 pack-years: 35 Tobacco: How many years used: 37 how long ago did patient quit smokin years ago second hand exposure: No alcohol intake: never substance use type: does not use caffeine: Yes Type: carbonated beverages Number of servings: 2 and coffee Number of servings: 2 eating out: 1-3 times/week during the past year weight has: increased > 10 lbs lizette/quaker: [employer]m seatbelt use: always do you feel safe at home: Yes ROS Review of Systems ROS Unobtainable: other Details: difficult to communicate due to rapid breathing and rapid heart rate Respiratory/Chest Respiratory/Chest: Reports shortness of breath at rest Vital Signs Vital Signs Vital Signs: 10/20/20 02:20 10/20/20 02:32 10/20/20 02:34 Temperature 96.2 F L 96.2 F L Temperature Source Temporal Temporal Pulse Rate 104 H 100 Respiratory Rate 43 H 37 H Respiratory Effort Accessory Muscle Use Head [place] Respiratory Pattern Tachypnea Blood Pressure 190/94 H 190/94 H Blood Pressure Mean 126 126 Pulse Ox 50 97 Oxygen Delivery Method Room Air Bi-pap Bi-pap Fraction of Inspired Oxygen (FIO2) 90 10/20/20 02:40 10/20/20 03:32 Temperature 97.3 F L Temperature Source Temporal Pulse Rate 108 H 95 Respiratory Rate 40 H 26 H Respiratory Effort Respiratory Pattern Tachypnea Blood Pressure 143/75 H Blood Pressure Mean 97 Pulse Ox 96 98 Oxygen Delivery Method Bi-pap Fraction of Inspired Oxygen (FIO2) 90 80 Physical Exam Const Constitutional Narrative: in acute respiratory distress Neck supple Lymph Lymphatic: no lymphadenopathy noted Resp Effort and Inspection: tachypneic and labored Auscultation: wheezes and diminished lung sounds Cardio Rate: tachycardic Rhythm: abnormal rhythm GI soft to palpation Extremity normal capillary refill Skin General Skin Exam: no breakdown Neuro CN's II-XII intact bilaterally Psych Appearance: appropriate Mood & Affect: anxious Lab / Micro Data Result Diagrams: 10/20/20 02:30 10/20/20 02:30 Labs: Laboratory Results - last 24 hr 10/20/20 10/20/20 10/20/20 02:30 02:30 02:30 WBC 23.4 H RBC 4.57 Hgb 12.4 Hct 38.6 MCV 84.5 MCH 27.1 MCHC 32.1 RDW Std Deviation 44.7 H RDW Coeff of [place] 14.6 Plt Count 466 H MPV 9.6 Immature Gran % (Auto) 1.500 H Neut % (Auto) 75.1 H Lymph % (Auto) 14.3 L [place] % (Auto) 7.6 Eos % (Auto) 0.9 Baso % (Auto) 0.6 Absolute Neuts (auto) 17.6 H Absolute Lymphs (auto) 3.34 Nucleated RBC % 0 Diff Path Review May foll Sodium 126 L Potassium 4.3 Chloride 89 L Carbon Dioxide 29.0 Anion Gap 8 BUN 14 Creatinine 0.94 Estim Creat Clear Calc 55.84 Est GFR (MDRD) Af Amer 77 Est GFR (MDRD) Non-Af 64 BUN/Creatinine Ratio 14.8 Glucose 309 H Calcium 8.7 Troponin I 0.015 B-Natriuretic Peptide 167.5 H Radiology Impression Chest X-Ray 10/20/20 02:19 IMPRESSION: Findings suggestive of interstitial pulmonary edema with bilateral atelectasis as described. Cannot exclude superimposed pneumonitis. Electronically Signed: Maribel Guardado MD at 2:50 EDT , Service support , Assessment & Plan Assessment/Plan (1) PSVT (paroxysmal supraventricular tachycardia): Status: Acute Code(s): I47.1 - Supraventricular tachycardia (2) Diabetes: Status: Chronic Code(s): E11.9 - Type 2 diabetes mellitus without complications (3) Lung neoplasm: Status: Acute Code(s): D49.1 - Neoplasm of unspecified behavior of respiratory system (4) Obesity: Status: Chronic Code(s): E66.9 - Obesity, unspecified Qualifiers: Qualified Code(s): Z68.34 - Body mass index [BMI] 34.0-34.9, adult (5) COPD exacerbation: Status: Chronic Code(s): J44.1 - Chronic obstructive pulmonary disease with (acute) exacerbation (6) Mediastinal mass: Status: Acute Code(s): J98.59 - Other diseases of mediastinum, not elsewhere classified (7) Anxiety and depression: Status: Chronic Code(s): F41.9 - Anxiety disorder, unspecified; F32.9 - Major depressive disorder, single episode, unspecified (8) Hypertension: Status: Chronic Code(s): I10 - Essential (primary) hypertension (9) Small cell lung cancer, right middle lobe: Status: Acute Code(s): C34.2 - Malignant neoplasm of middle lobe, bronchus or lung (10) Presence of stent in coronary artery: Status: Chronic Code(s): Z95.5 - Presence of coronary angioplasty implant and graft (11) Hyperlipidemia: Status: Chronic Code(s): E78.5 - Hyperlipidemia, unspecified Plan: Plan 1. Impending respiratory failure\history of lung cancer\COPD\community-acquired pneumonia suspected?admit patient to intensive care unit, consult pulmon ologist, continue BiPAP therapy initiated in the emergency room, Solu-Medrol 40 mg IV every 8 hours, DuoNeb INH every 4 hours as needed, continue antibiotics initiated in the emergency room, recommend establishing CODE STATUS with patient when she is more able to discuss her care 2. Paroxysmal supraventricular tachycardia?maintain amiodarone drip follow-up on magnesium level that is currently pending 3. Diabetes we will continue current medications as she is able to tolerate p.o. medications. 4. DVT prophylaxis?low molecular weight heparin Visit Charges Inpatient E&M: 50301 Init Hosp L3
[2020-10-20 03:49] LABS: Lactic Acid 3.5 mmol/L (0.4-1.9)
[2020-10-20 04:01] LABS: Magnesium 1.5 mg/dL (1.6-2.6)
[2020-10-20] MEDS: Amiodarone 360 MG in Dextrose 5% Viaflo Bag 192.8 ML 33.3 MG CONT INF (04:18)
[2020-10-20 06:17] LABS: Absolute Lymphocyte Count 0.28 X10^3/uL (0.83-4.51); Absolute Neutrophil Count 19.9 X10^3/uL (2.0-7.7); Basophil# 0.03 X10^3/uL; Basophil% 0.1 % (0-1); Eosinophil# 0.02 X10^3/uL; Eosinophils% 0.1 % (0-5); Hemoglobin 11.1 g/dL (12.0-15.0); Lymphocyte # 0.28 X10^3/ul (0.83-4.51); Lymphocyte % 1.4 % (19-41); Mean Corp Hgb Conc 32.6 g/dL (32-36); Mean Corpuscular Hgb 26.9 pg (27.0-32.0); Mean Corpuscular Volume 82.3 fL (81-99); Mean Platelet Vol. 9.5 fl (6.2-12.0); Monocyte# 0.31 X10^3/uL; Monocyte% 1.5 % (0-10); NRBC Flagged by Analyzer 0 % (0-5); Neutrophil # 19.86 X10^3/uL (2.7-7.7); Neutrophil % 95.8 % (47-70); POSITIVE DIFFERENTIAL YES; Platelet Count 348 K/mm3 (150-450); RBC Distribution Width CV 14.7 % (11.6-14.6); RBC Distribution Width SD 44.1 fl (35.1-43.9); Red Blood Count 4.13 M/mm3 (4.2-5.4); White Blood Count 20.7 K/mm3 (4.4-11.0)
[2020-10-20 06:22] LABS: Differential Indicated SCAN CRITERIA MET
[2020-10-20 06:36] LABS: Reflex Lactate? Y
[2020-10-20] MEDS: Magnesium Sulfate 4gm/100mL 4 GM/100 ML IV.SOLN. IV (06:38)
[2020-10-20 06:44] LABS: ALB/GLOB Ratio 0.9 RATIO (0.9-2.4); AST(SGOT) 30 U/L (15-37); Alanine Aminotransfer ALT/SGPT 33 U/L (13-56); Albumin, Serum 3.1 g/dL (3.2-5.0); Alkaline Phosphatase 67 U/L (45-117); Anion Gap 10 (5-15); BUN 14 mg/dL (7-18); BUN/Creat Ratio 15.7 RATIO (10-20); Calcium,Total 8.2 mg/dL (8.5-10.1); Chloride 87 mmol/L (98-107); Creatinine, Serum 0.89 mg/dL (0.55-1.02); EST Glomerular Filtration Rate 68 mL/min (>60); Est Glom Filt Rate - Afr Amer 82 mL/min (>60); Globulin 3.5 g/dL (2.2-4.2); Glucose 276 mg/dL (74-106); Magnesium 1.2 mg/dL (1.6-2.6); Phosphorus 4.3 mg/dL (2.5-4.9); Potassium 3.5 mmol/L (3.5-5.1); Protein, Total 6.6 g/dL (6.4-8.2); Sodium Level 124 mmol/L (136-145); Thyroid Stim Hormone (TSH) 0.49 uIU/mL (0.358-3.74)
--- NOTE | 2020-10-20 06:57 | EX.PCM.CONCC ---
Assessment & Plan Assessment/Plan (1) Acute and chronic respiratory failure with hypoxia: Status: Chronic Code(s): J96.21 - Acute and chronic respiratory failure with hypoxia (2) COPD exacerbation: Status: Chronic Code(s): J44.1 - Chronic obstructive pulmonary disease with (acute) exacerbation (3) Small cell lung cancer: Status: Acute Code(s): C34.90 - Malignant neoplasm of unspecified part of unspecified bronchus or lung (4) Pleural effusion, right: Status: Acute Code(s): J90 - Pleural effusion, not elsewhere classified (5) PSVT (paroxysmal supraventricular tachycardia): Status: Acute Code(s): I47.1 - Supraventricular tachycardia Plan: RECOMMENDATIONS: 1. Wean FiO2/supplemental oxygen to maintain saturations at or above 90%. 2. Discontinue duo nebs and start scheduled Atrovent every 6 hours. 3. Continue empiric antimicrobials and IV steroids. 4. Obtain repeat echocardiogram. 5. Aggressive electrolyte repletion. 6. Continue amiodarone and beta-lexa. 7. Proceed with chest port placement tomorrow, if feasible from a clinical perspective. 8. Ultrasound-guided thoracentesis later today if clinically stable. IMPRESSIONS: 1. Acute on chronic hypoxemic respiratory failure/COPD with exacerbation The patient has a presumptive history of COPD of unknown severity, as she has not yet completed pulmonary function studies. Unclear precipitating etiology for her exacerbation. The patient does have a history of heart failure with preserved ejection fraction as well, which may also have been contributing to her presenting symptoms, as she did appear to respond to IV diuretic therapy. For now, the patient will be continued on bronchodilators and IV steroids. However, given her issues with her tachyarrhythmia, duo nebs will be discontinued and the patient will be placed on scheduled Atrovent. Recommend weaning supplemental oxygen to maintain saturations at or above 90%. Continue empiric antimicrobials, pending finalized infectious work-up. 2. Recent diagnosis of small cell lung cancer/unspecified pleural effusion The patient was recently diagnosed with what is suspected to be limited stage small cell lung cancer. She is supposed to have a port placed tomorrow with general surgery, which I would recommend proceeding with, pending clinical stability. If the patient is stable enough, will proceed with ultrasound-guided thoracentesis later today. 3. History of coronary artery disease/PSVT The patient has a known history of coronary artery disease and has been experiencing significant tachy-arrhythmias this morning. The patient will be continued on amiodarone for now along with beta-lexa. Echocardiogram is pending. Will obtain cardiology consultation as well to assist with medical management. 4. Hypokalemia/hypomagnesemia Aggressive electrolyte repletion as ordered. Recheck levels post repletion. 5. Diabetes mellitus/depression/anxiety/hypertension/GERD Complicates care, management, recovery and prognosis. Discontinue Metformin, given lactic acidemia. Continue sliding scale coverage and Lantus. This note was generated with [employer] dictation software. It may contain incorrect words, spelling, and punctuation that were not noted in checking the note before signing. HPI Consult Data Date of Consult: 10/20/20 HPI Narrative Reason for Consultation: Acute respiratory failure HPI Narrative: The patient is a 60-year-old female, with a history as outlined below, who presented to the emergency department on October 20 with complaints of shortness of breath. The patient has a questionable history of COPD of unknown severity and is currently prescribed Symbicort on an outpatient basis. Although she recently establish care in the pulmonary medicine clinic, she has yet to complete pulmonary function studies. She reports that she typically utilizes 2 to 3 L/min of supplemental oxygen at her baseline. The patient underwent mediastinal lymph node sampling via EBUS in August [address] Pretty. Pathology was consistent with small cell lung cancer. The patient was felt to have limited stage disease after completing PET scan. She was actually evaluated by oncology yesterday with plans to initiate systemic chemotherapy with cisplatin and etoposide. However, she has yet to have her port placed. On presentation to the emergency department the patient was noted to be afebrile but was hypertensive with a blood pressure of 190/94 mmHg. In addition, the patient was quite tachypneic and hypoxemic. Laboratory evaluation revealed an elevated white blood cell count to 20,000. Chemistry profile was notable for a sodium of 124, chloride of 87 and creatinine of 0.89. Lactate was elevated to 3.5. Magnesium was low at 1.5. BNP was mildly elevated to 167. Troponin was unremarkable. Chest x-ray revealed bilateral interstitial prominence with a right-sided pleural effusion. The patient was placed on BiPAP in the emergency department and was provided with aerosol treatments, IV steroids and IV Lasix. She was subsequently admitted to the medical intensive care unit for further management. [facility] Medical History (Updated 10/20/20 @ 10:[address] Timo Rivera MD) Abnormal cardiovascular stress test Angina pectoris Anxiety Atherosclerosis of [place] coronary artery of [place] heart without angina pectoris Cancer Carcinoma, lung Cardiac dysrhythmia COPD (chronic obstructive pulmonary disease) Coronary artery disease Depression DVT (deep venous thrombosis) Edema Former smoker GERD (gastroesophageal reflux disease) Hiatal hernia History of fatty infiltration of liver Hyperlipidemia Hypertension Injury of head and neck Loose, teeth Myocardial infarct Oxygen dependent Presence of stent in coronary artery (~05/2011) Restless legs Shortness of breath on exertion Syncope Type II diabetes mellitus Home Medications nitroglycerin 0.4 mg SL Q5M PRN 07/03/13 [History Last Taken 06/19/12 0.4] albuterol sulfate 2 puff INHALATION Q4H PRN PRN 11/20/19 [History Last Taken 11/20/19] buspirone 5 mg PO TID 11/20/19 [History Last Taken 09/11/20 07:00 5 MG] dicyclomine 10 - 20 mg PO TID PRN PRN 11/20/19 [History Last Taken 11/20/19] metformin 1,000 mg PO BID 11/20/19 [History Last Taken 11/20/19] pantoprazole 40 mg PO DAILY 11/20/19 [History Last Taken 11/20/19] atorvastatin 40 mg tablet 40 mg PO QHS #90 tablet 12/23/19 [Rx Last Taken Unknown] budesonide-formoterol HFA 160 mcg-4.5 mcg/actuation aerosol inhaler 2 puff INHALATION BID 03/09/20 [History Last Taken Unknown] meclizine 25 mg tablet 25 mg PO DAILY PRN 03/09/20 [History Last Taken Unknown] insulin glargine 25 unit SC QAM 07/24/20 [History Last Taken Unknown] dulaglutide 1.5 mg SC TH 09/08/20 [History Last Taken Unknown] alprazolam 0.5 mg tablet 0.25 mg PO QHS PRN PRN tablet 09/14/20 [History Last Taken Unknown] lisinopril 5 mg tablet 5 mg PO DAILY #90 tablet 10/05/20 [Rx Last Taken Unknown] lidocaine-prilocaine 2.5 %-2.5 % topical cream 1 applic TOPICAL ONCE PRN 30 Days #30 g 10/19/20 [Rx Last Taken Unknown] ondansetron 8 mg disintegrating tablet 8 mg PO Q8H PRN #30 tab 10/19/20 [Rx Last Taken Unknown] prochlorperazine maleate 10 mg tablet 10 mg PO Q6H PRN #30 tab 10/19/20 [Rx Last Taken Unknown] dulaglutide [Trulicity] 1.5 mg SUBCUT QWEEK 10/20/20 [History Last Taken Unknown] fluoxetine 60 mg PO DAILY 10/20/20 [History Last Taken Unknown] insulin aspart U-100 [Novolog Flexpen U-100 Insulin] 20 unit SC TID 10/20/20 [History Last Taken Unknown] metoprolol tartrate 25 mg PO BID 10/20/20 [History Last Taken Unknown] sodium chloride 1 g PO DAILY 10/20/20 [History Last Taken Unknown] Allergy/AdvReac Type Severity Reaction Status Date / Time No Known Allergies Allergy Verified 10/20/20 02:32 Family History Father , Age 56 Myocardial infarction Heart disease COPD (chronic obstructive pulmonary disease) Mother COPD (chronic obstructive pulmonary disease) Heart disease Surgical History H/O arthroscopic knee surgery H/O elbow surgery History of carpal tunnel surgery History of cholecystectomy History of lumbar surgery History of tubal ligation Hx of biopsy Presence of coronary angioplasty implant and graft Social History household members: spouse housing: house current occupational status: retired Smoking Status: Former smoker quit date: 06/19/13 pack-years: 35 Tobacco: How many years used: 37 how long ago did patient quit smokin years ago second hand exposure: No alcohol intake: never substance use type: does not use caffeine: Yes Type: carbonated beverages Number of servings: 2 and coffee Number of servings: 2 eating out: 1-3 times/week during the past year weight has: increased > 10 lbs lizette/sikhism: Yazidi seatbelt use: always do you feel safe at home: Yes ROS Constitutional Constitutional: Denies chills, fatigue or fever(s) Eyes Eyes: Denies blurry vision or change in vision ENT HEENT: Denies dizziness or headache(s) Cardiovascular Cardiovascular: Reports dyspnea and irregular heart rhythm; Denies chest pain Respiratory/Chest Respiratory/Chest: Reports shortness of breath with exertion; Denies chest tightness or hemoptysis Gastrointestinal Gastrointestinal: Denies abdominal pain Genitourinary Genitourinary: Denies difficulty urinating or dysuria Musculoskeletal Musculoskeletal: Denies arthralgias Integumentary Integumentary: Denies lesions Neurologic Neurologic: Denies abnormal gait or abnormal speech Endocrine Endocrinology: Reports fatigue Hematologic/Lymphatic Hematologic/Lymphatic: Denies easy bleeding or easy bruising Physical Exam Const alert, oriented x3 and no apparent distress General Appearance: cooperative HEENT normocephalic and head/scalp atraumatic Eyes PERRL and EOMs intact bilaterally Chest inspection of chest normal Resp normal respiratory effort and no use of accessory muscles Effort and Inspection: able to speak in complete sentences and tachypneic Auscultation: rales and diminished lung sounds Cardio Rate: tachycardic Rhythm: abnormal rhythm GI normal to inspection, nondistended, normoactive bowel sounds Extremity no clubbing, cyanosis or edema Skin no rashes or lesions noted Neuro oriented x3, CN's II-XII intact bilaterally and moves all extremities Psych cooperative and affect normal Lab / Micro Data Result Diagrams: 10/20/20 06:02 10/20/20 06:02 Labs: Laboratory Results - last 24 hr 10/20/20 10/20/20 10/20/20 02:30 02:30 02:30 WBC 23.4 H RBC 4.57 Hgb 12.4 Hct 38.6 MCV 84.5 MCH 27.1 MCHC 32.1 RDW Std Deviation 44.7 H RDW Coeff of [place] 14.6 Plt Count 466 H MPV 9.6 Immature Gran % (Auto) 1.500 H Neut % (Auto) 75.1 H Lymph % (Auto) 14.3 L [place] % (Auto) 7.6 Eos % (Auto) 0.9 Baso % (Auto) 0.6 Absolute Neuts (auto) 17.6 H Absolute Lymphs (auto) 3.34 Nucleated RBC % 0 Diff Path Review May foll Sodium 126 L Potassium 4.3 Chloride 89 L Carbon Dioxide 29.0 Anion Gap 8 BUN 14 Creatinine 0.94 Estim Creat Clear Calc 55.84 Est GFR (MDRD) Af Amer 77 Est GFR (MDRD) Non-Af 64 BUN/Creatinine Ratio 14.8 Glucose 309 H Lactic Acid 3.5 H* Calcium 8.7 Phosphorus Magnesium Total Bilirubin AST ALT Alkaline Phosphatase Troponin I 0.015 B-Natriuretic Peptide Total Protein Albumin Globulin Albumin/Globulin Ratio [facility] 10/20/20 10/20/20 10/20/20 02:30 02:30 06:02 WBC 20.7 H RBC 4.13 L Hgb 11.1 L Hct 34.0 L MCV 82.3 MCH 26.9 L MCHC 32.6 RDW Std Deviation 44.1 H RDW Coeff of [place] 14.7 H Plt Count 348 MPV 9.5 Immature Gran % (Auto) 1.100 H Neut % (Auto) 95.8 H Lymph % (Auto) 1.4 L [place] % (Auto) 1.5 Eos % (Auto) 0.1 Baso % (Auto) 0.1 Absolute Neuts (auto) 19.9 H Absolute Lymphs (auto) 0.28 L Nucleated RBC % [address] Review Sodium Potassium Chloride Carbon Dioxide Anion Gap BUN Creatinine Estim Creat Clear Calc Est GFR (MDRD) Af Amer Est GFR (MDRD) Non-Af BUN/Creatinine Ratio Glucose Lactic Acid Calcium Phosphorus Magnesium 1.5 L Total Bilirubin AST ALT Alkaline Phosphatase Troponin I B-Natriuretic Peptide 167.5 H Total Protein Albumin Globulin Albumin/Globulin Ratio [facility] 10/20/20 06:02 WBC RBC Hgb Hct MCV MCH MCHC RDW Std Deviation RDW Coeff of [place] Plt Count MPV Immature Gran % (Auto) Neut % (Auto) Lymph % (Auto) [place] % (Auto) Eos % (Auto) Baso % (Auto) Absolute Neuts (auto) Absolute Lymphs (auto) Nucleated RBC % Diff Path Review Sodium 124 L Potassium 3.5 Chloride 87 L Carbon Dioxide 27.0 Anion Gap 10 BUN 14 Creatinine 0.89 Estim Creat Clear Calc 56.60 Est GFR (MDRD) Af Amer 82 Est GFR (MDRD) Non-Af 68 BUN/Creatinine Ratio 15.7 Glucose 276 H Lactic Acid Calcium 8.2 L Phosphorus 4.3 Magnesium 1.2 L Total Bilirubin 0.30 AST 30 ALT 33 Alkaline Phosphatase 67 Troponin I B-Natriuretic Peptide Total Protein 6.6 Albumin 3.1 L Globulin 3.5 Albumin/Globulin Ratio 0.9 TSH 0.49 Micro: Microbiology 10/20/20 03:20 SARS-CoV-2 Antigen (Rapid) - Final Nasal Secretion Radiology Impression Chest X-Ray 10/20/20 02:19 IMPRESSION: Findings suggestive of interstitial pulmonary edema with bilateral atelectasis as described. Cannot exclude superimposed pneumonitis. Electronically Signed: Maribel Guardado MD at 2:50 EDT , Service support , Charges/Coding Visit Charges Inpatient E&M: 67603 Init Hosp L3
[2020-10-20 07:22] LABS: Lactic Acid 3.6 mmol/L (0.4-1.9)
--- NOTE | 2020-10-20 08:05 | ECHOCS_ITS ---
Reason For Study: DYSPNEA/SOB Procedure This was a 2D Doppler, Color Flow transthoracic echocardiogram. The study was technically difficult. Due to patient positioning & body habitus. Contrast injection was performed. Exam performed portable in ICU/CCU. Left Ventricle Normal LV size. Mild segmental systolic dysfunction (see wall motion). The estimated ejection fraction is 50 %. There is evidence of diastolic dysfunction. Mid-Anterior : Hypokinetic. Mid- anteroseptal : Hypokinetic. [place] : Akinetic. Right Ventricle Normal RV size. Normal systolic function. Atria Normal left atrium. Normal right atrium. No doppler evidence for ASD. Mitral Valve There is no mitral annular calcification. Normal mitral valve. Mild (1+) mitral valve insufficiency. Tricuspid Valve Normal tricuspid valve. Mild tricuspid valve insufficiency. Right ventricular systolic pressure estimated to be 44 mmHg. Aortic Valve Trisinus/trileaflet aortic valve. Mild focal aortic valve calcification. Pulmonic Valve The pulmonic valve is not well visualized. Great Vessels Normal sized aortic root. Pericardium/Pleural No pericardial effusion. Medication Diluted definity 3.0ml given slow IV push to enhance endocardial definition. MMode/2D Measurements & Calculations LVIDd: 5.5 cm IVSd: 1.0 cm Ao root diam: 3.3 cm LVIDs: 4.1 cm LVPWd: 1.1 cm RVDd: 3.7 cm FS: 24.1 % LAV(MOD-bp): 70.3 ml LA A4 area: 20.9 cm2 LA dimension(2D): 4.0 cm LAV(MOD-bp) Indexed: 35.3 ml/m2 LAV(MOD-sp2): 67.0 ml LAV(MOD-sp4): 69.5 ml RA A4 area: 15.4 cm2 Time Measurements MV dec time: 0.14 sec Doppler Measurements & Calculations MV E max isaías: 107.3 cm/sec Lat Peak E' Isaías: 7.0 cm/sec Ao V2 max: 130.9 cm/sec MV A max isaías: 81.2 cm/sec E/E' lat: 15.4 Ao max P.9 mmHg MV E/A: 1.3 LV V1 max: 88.1 cm/sec PA V2 max: 88.2 cm/sec TR max isaías: 320.0 cm/sec LV V1 max P.1 mmHg TR max P.0 mmHg ECHO/Echo Complete W/ Contrast Interpretation Summary The study was technically difficult. Contrast injection was performed. Mild segmental systolic dysfunction (see wall motion). The estimated ejection fraction is 50 %. Mild (1+) mitral valve insufficiency. Mild tricuspid valve insufficiency. Mild focal aortic valve calcification. Right ventricular systolic pressure estimated to be 44 mmHg. There is evidence of diastolic dysfunction. Ordering Physician: Wilfrid Richardson Referring Physician: Sarah Duarte Performed By: Simona De Anda, RDCS, RVT
--- NOTE | 2020-10-20 09:17 | EKG12_ITS ---
Test Reason : AFIB Blood Pressure : / mmHG Vent. Rate : 085 BPM Atrial Rate : 085 BPM P-R Int : 178 ms QRS Dur : 094 ms QT Int : 376 ms P-R-T Axes : 018 -74 -31 degrees QTc Int : 447 ms Sinus rhythm with marked sinus arrhythmia Left axis deviation Anteroseptal infarct , age undetermined Abnormal ECG When compared with ECG of 20-OCT-2020 09:17, MANUAL COMPARISON REQUIRED, DATA IS UNCONFIRMED Confirmed by TESSA KAN, VISH ([id number]), fire investigator JOSE GUADALUPE ALLEN ([id number]) on 10/22/2020 9:19:00 AM Referred By: James Esquivel Confirmed By:VISH ZARATE MD
--- NOTE | 2020-10-20 09:17 | EKG12_ITS ---
Test Reason : AFIB Blood Pressure : / mmHG Vent. Rate : 085 BPM Atrial Rate : 085 BPM P-R Int : 168 ms QRS Dur : 098 ms QT Int : 408 ms P-R-T Axes : 031 -78 003 degrees QTc Int : 485 ms Sinus rhythm with Premature atrial complexes Left axis deviation Anteroseptal infarct , age undetermined Abnormal ECG When compared with ECG of 20-OCT-2020 02:32, MANUAL COMPARISON REQUIRED, DATA IS UNCONFIRMED Confirmed by TESSA KAN, VISH ([id number]), deputy editor in chief JOSE GUADALUPE ALLEN ([id number]) on 10/22/2020 9:20:31 AM Referred By: ROXANNA Confirmed By:VISH ZARATE MD
--- NOTE | 2020-10-20 09:18 | EKG12_ITS ---
Test Reason : AFIB Blood Pressure : / mmHG Vent. Rate : 138 BPM Atrial Rate : 163 BPM P-R Int : 000 ms QRS Dur : 098 ms QT Int : 378 ms P-R-T Axes : 000 -78 041 degrees QTc Int : 572 ms Atrial fibrillation Left anterior fascicular block Anteroseptal infarct , age undetermined Abnormal ECG When compared with ECG of 20-OCT-2020 09:17, MANUAL COMPARISON REQUIRED, DATA IS UNCONFIRMED Confirmed by TESSA KAN, VISH ([id number]), proposal editor JOSE GUADALUPE ALLEN ([id number]) on 10/22/2020 9:18:51 AM Referred By: James Esquivel Confirmed By:VISH ZARATE MD
--- NOTE | 2020-10-20 09:20 | NURSING ---
0915- assisted patient on bedpan, pt attempting to have bowel movement, HR up to 170's monitor alarming Vtach and SVT, vagal maneuvers and carotid massage improved HR slightly, EKG obtained, Dr. Richardson at bedside, order for potassium replacement, amiodarone gtt remains running, Dr. Richardson consulting with Miguel, Natow will come to floor.
[2020-10-20] MEDS: Potassium Chloride 10mEq/100mL 10 MEQ/100 ML IV.SOLN. 100 MEQ IV BOLUS ×4 (09:40→13:31)
[2020-10-20] MEDS: Adenosine 6 MG/2 ML Syringe IV (09:46)
[2020-10-20] MEDS: Metoprolol Tartrate 5 MG/5 ML Vial IV (09:52)
--- NOTE | 2020-10-20 09:55 | NURSING ---
Dr. Rivera in to see patient, verbal order for adenosine, adenosine 6 mg IV x1 given at 0946, patient did have termination of tachydysrhythmia, however reoccurrence of this event, lopressor 5 mg IV x1 given at 0952 and HR converted to SR. Order received for amiodarone bolus. Reviewed all meds with Dr. Rivera.
[2020-10-20] MEDS: Insulin Lispro 100 UNIT/ML INSULN.PEN SC ×4 (10:08→21:03)
[2020-10-20] MEDS: Pantoprazole Sodium 40 MG Tablet PO (10:09)
[2020-10-20] MEDS: FLUoxetine 20 MG Capsule 60 MG PO (10:09)
[2020-10-20] MEDS: levoFLOXacin IV 750 MG/150 ML BAG 100 MG IV (10:09)
[2020-10-20] MEDS: Lisinopril 5 MG Tablet PO (10:09)
[2020-10-20 10:15] LABS: Bedside Glucose 291 mg/dL (70-110)
--- NOTE | 2020-10-20 10:22 | CASEMGMT ---
Multidisciplinary rounds not completed d/t pt having runs vtach/arrythmia and nursing/physicians to bedside. Pt is currently on 6L nc. CM to follow, assessment to be completed. SStnoreen RN CM
[2020-10-20] MEDS: Amiodarone 360 MG in Dextrose 5% Viaflo Bag 192.8 ML 16.7 MG CONT INF ×2 (10:26→22:25)
--- NOTE | 2020-10-20 10:27 | PCM.CONS.C ---
Assessment & Plan Assessment/Plan (1) Cardiac dysrhythmia: Status: Acute Code(s): I49.9 - Cardiac arrhythmia, unspecified Plan: The patient has findings compatible with multiple underlying cardiac dysrhythmias. 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 The patient's cardiac dysrhythmias may be exacerbated by her underlying electrolyte related issues as well as her pulmonary issues superimposed upon her underlying chronic underlying cardiovascular issues. At the moment she is in the ICU. She is receiving electrolyte supplements. She is receiving additional medications both p.o. and orally to assist with her underlying cardiac rate and rhythm control. (2) Atherosclerosis of lime coronary artery of lime heart without angina pectoris: Status: Chronic Code(s): I25.10 - Atherosclerotic heart disease of lime coronary artery without angina pectoris Plan: She does have a history of underlying CAD. At the moment she is not complaining of symptoms of classic angina pectoris. Her initial troponin I level was negative. Her ECG is not demonstrated any acute ST/T wave changes. She will continue to be followed for the need for additional evaluation and care. (3) Presence of stent in coronary artery: Status: Chronic Code(s): Z95.5 - Presence of coronary angioplasty implant and graft Plan: She has a history of previous PCI to the LAD. Her previous diagnostic cardiac catheterization is as noted above. Again she will continue medical management and follow-up at this time. (4) Hyperlipidemia: Status: Chronic Code(s): E78.5 - Hyperlipidemia, unspecified Qualifiers: Hyperlipidemia type: unspecified Qualified Code(s): E78.5 - Hyperlipidemia, unspecified Plan: She does need to continue risk factor evaluation care as deemed appropriate. (5) Hypertension: Status: Chronic Code(s): I10 - Essential (primary) hypertension Qualifiers: Hypertension type: essential hypertension Qualified Code(s): I10 - Essential (primary) hypertension Plan: Her blood pressure will need to be monitored as her medications were adjusted. (6) COPD exacerbation: Status: Chronic Code(s): J44.1 - Chronic obstructive pulmonary disease with (acute) exacerbation Plan: She is being evaluated by pulmonology/critical care medicine for COPD exacerbation. (7) Small cell lung cancer: Status: Acute Code(s): C34.90 - Malignant neoplasm of unspecified part of unspecified bronchus or lung Plan: She is undergoing further diagnostic studies for her diagnosis of small cell lung carcinoma with respect to staging as well as the need for initiation of therapy with IV chemotherapy. Addt'l Comments The patient's case was discussed and reviewed with patient and Dr. Richardson. The present time, from a cardiovascular standpoint, the plan is to continue to evaluate the patient and continue with medical therapy to assist with the patient's underlying acute superimposed upon chronic underlying cardiovascular disorders, with the hopes that her cardiovascular issues can be stabilized so that she can proceed with her lung carcinoma staging procedures and port placement to allow her to initiate chemotherapy. This note was generated using a voice recognition system and there may be incorrect words, spelling or punctuation that were not noted when reviewing the office note prior to saving. HPI Consult Data Date of Consult: 10/20/20 HPI Narrative HPI Narrative: CAPRI CORONEL, is a 60 F who presents with a past cardiovascular history which has included underlying CAD status post LAD PCI superimposed upon a history of hyperlipidemia, hypertension, diabetes mellitus, and lung carcinoma pending initiation of additional diagnostic studies, port placement, and chemotherapy, who is referred for evaluation of syncope and subsequent findings of cardiac dysrhythmias. She states at home she has been noting surges with respect to her heart rate. She notes this is been going on for quite some time. She does not recall other forms of chest discomfort. She has had chronic shortness of breath and dyspnea which has been attributed to her underlying lung carcinoma. She denies any orthopnea or PND. She states she occasionally has lower extremity peripheral pitting edema-pedal. She states she was at home using the bathroom sitting on the commode and did not feel well. She states she felt as if she may lose consciousness. She asked her to summon EMS. She states she does not remember much of anything past that point until being in the [facility] emergency department. According to the [facility] hospitalist note she was being evaluated for what appeared to be a combination of issues with respect to cardiac dysrhythmias including potentially bradycardia and PSVT as well as an underlying acute respiratory distress related event thought secondary to her underlying history of lung carcinoma and COPD. She underwent evaluation. Her troponin I level was negative. An ECG demonstrated what appeared to be sinus tachycardia with PSVT sees with left axis deviation with left anterior fascicular block and an anterior AR of indeterminate age pattern. She was placed in the ICU for further cardiopulmonary evaluation and care. From a cardiac standpoint she initiated additional medical therapy which included orders for electrolyte supplements as well as initiation of IV amiodarone with both IV bolus and IV continuous infusion. She was evaluated by pulmonology this a.m. She was noted to have multiple cardiac dysrhythmias on her clinical research monitor. Her dysrhythmias appeared to include concerns of sinus rhythm with paroxysmal atrial fibrillation as well as episodes of a narrow and both wide-complex tachycardia raising concerns of aberrancy and ventricular tachycardia. According to the [facility] ICU nursing staff it appeared some of her tacky dysrhythmias were able to be interrupted with carotid artery massage. At the time of cardiology consultation she reiterated the aforementioned symptoms and concerns. She was noted to have ongoing tachydysrhythmias being concerning for both PAF, PSVT, and wide-complex dysrhythmias concerning for both aberrancy and ventricular tachycardia. She was treated with IV adenosine 6 mg IV x1 and did have termination of her tachycardia that was concerning for PSVT. She then had recurrence of the event. She was then treated with IV metoprolol 5 mg x 1 and appeared to have return to sinus rhythm. She was also to receive additional IV amiodarone 150 mg IV bolus x1. At the same time she was receiving her potassium and magnesium supplements. She was also scheduled to undergo thoracentesis later this day to assist with diagnosis of her lung carcinoma with respect to staging. She is scheduled for a port placement tomorrow to allow her to initiate chemotherapy. [facility] Medical History (Updated 10/20/20 @ 10:[address] Timo Rivera MD) Abnormal cardiovascular stress test Angina pectoris Anxiety Atherosclerosis of lime coronary artery of lime heart without angina pectoris Cancer Carcinoma, lung Cardiac dysrhythmia COPD (chronic obstructive pulmonary disease) Coronary artery disease Depression DVT (deep venous thrombosis) Edema Former smoker GERD (gastroesophageal reflux disease) Hiatal hernia History of fatty infiltration of liver Hyperlipidemia Hypertension Injury of head and neck Loose, teeth Myocardial infarct Oxygen dependent Presence of stent in coronary artery (~05/2011) Restless legs Shortness of breath on exertion Syncope Type II diabetes mellitus Home Medications nitroglycerin 0.4 mg SL Q5M PRN 07/03/13 [History Last Taken 06/19/12 0.4] albuterol sulfate 2 puff INHALATION Q4H PRN PRN 11/20/19 [History Last Taken 11/20/19] buspirone 5 mg PO TID 11/20/19 [History Last Taken 09/11/20 07:00 5 MG] dicyclomine 10 - 20 mg PO TID PRN PRN 11/20/19 [History Last Taken 11/20/19] metformin 1,000 mg PO BID 11/20/19 [History Last Taken 11/20/19] pantoprazole 40 mg PO DAILY 11/20/19 [History Last Taken 11/20/19] atorvastatin 40 mg tablet 40 mg PO QHS #90 tablet 12/23/19 [Rx Last Taken Unknown] budesonide-formoterol HFA 160 mcg-4.5 mcg/actuation aerosol inhaler 2 puff INHALATION BID 03/09/20 [History Last Taken Unknown] meclizine 25 mg tablet 25 mg PO DAILY PRN 03/09/20 [History Last Taken Unknown] insulin glargine 25 unit SC QAM 07/24/20 [History Last Taken Unknown] dulaglutide 1.5 mg SC TH 09/08/20 [History Last Taken Unknown] alprazolam 0.5 mg tablet 0.25 mg PO QHS PRN PRN tablet 09/14/20 [History Last Taken Unknown] lisinopril 5 mg tablet 5 mg PO DAILY #90 tablet 10/05/20 [Rx Last Taken Unknown] lidocaine-prilocaine 2.5 %-2.5 % topical cream 1 applic TOPICAL ONCE PRN 30 Days #30 g 10/19/20 [Rx Last Taken Unknown] ondansetron 8 mg disintegrating tablet 8 mg PO Q8H PRN #30 tab 10/19/20 [Rx Last Taken Unknown] prochlorperazine maleate 10 mg tablet 10 mg PO Q6H PRN #30 tab 10/19/20 [Rx Last Taken Unknown] dulaglutide [Trulicity] 1.5 mg SUBCUT QWEEK 10/20/20 [History Last Taken Unknown] fluoxetine 60 mg PO DAILY 10/20/20 [History Last Taken Unknown] insulin aspart U-100 [Novolog Flexpen U-100 Insulin] 20 unit SC TID 10/20/20 [History Last Taken Unknown] metoprolol tartrate 25 mg PO BID 10/20/20 [History Last Taken Unknown] sodium chloride 1 g PO DAILY 10/20/20 [History Last Taken Unknown] Allergy/AdvReac Type Severity Reaction Status Date / Time No Known Allergies Allergy Verified 10/20/20 02:32 Family History Father , Age 56 Myocardial infarction Heart disease COPD (chronic obstructive pulmonary disease) Mother COPD (chronic obstructive pulmonary disease) Heart disease Surgical History H/O arthroscopic knee surgery H/O elbow surgery History of carpal tunnel surgery History of cholecystectomy History of lumbar surgery History of tubal ligation Hx of biopsy Presence of coronary angioplasty implant and graft Social History household members: spouse housing: house current occupational status: retired Smoking Status: Former smoker quit date: 06/19/13 pack-years: 35 Tobacco: How many years used: 37 how long ago did patient quit smokin years ago second hand exposure: No alcohol intake: never substance use type: does not use caffeine: Yes Type: carbonated beverages Number of servings: 2 and coffee Number of servings: 2 eating out: 1-3 times/week during the past year weight has: increased > 10 lbs lizette/roman catholic: Sabianism seatbelt use: always do you feel safe at home: Yes ROS Constitutional Constitutional: Reports systems reviewed and no addt'l complaints, except as documented Eyes Eyes: Reports systems reviewed and no addt'l complaints, except as documented Cardiovascular Cardiovascular: Reports systems reviewed and no addt'l complaints, except as documented, dyspnea and palpitations Respiratory/Chest Respiratory/Chest: Reports systems reviewed and no addt'l complaints, except as documented and dyspnea Gastrointestinal Gastrointestinal: Reports systems reviewed and no addt'l complaints, except as documented Genitourinary Genitourinary: Reports systems reviewed and no addt'l complaints, except as documented Integumentary Integumentary: Reports systems reviewed and no addt'l complaints, except as documented Neurologic Neurologic: Reports systems reviewed and no addt'l complaints, except as documented Physical Exam Narrative This is a 60-year-old female who appears to be awake and alert at this time with the appearance of chronic shortness of breath/dyspnea. Const alert and oriented x3 Orientation / Consciousness: awake HEENT normocephalic Eyes PERRL, EOMs intact bilaterally, conjunctivae normal and no scleral icterus Neck full ROM and supple Chest inspection of chest normal Resp Auscultation: diminished lung sounds Cardio regular rhythm, S1 normal heart sound and S2 normal heart sound GI normal to inspection, nondistended, normoactive bowel sounds Extremity General Extremity: edema bilateral lower extremity Details: trace Skin no rashes or lesions noted Neuro oriented x3 and moves all extremities Psych mental status grossly normal Procedure Criteria Procedure Type: Elective COVID Risk Discussion: The surgeon/proceduralist and patient have discussed in detail the risk of exposure to and/or potential harm posed by the COVID-19 virus with having a surgery/procedure at this time versus the risk of delaying the surgery/procedure. It is not possible to know either the risk of delaying the surgery or procedure or chance of getting an infection with perfect accuracy, but a joint decision was made between the patient and the surgeon/proceduralist to proceed at this time with the scheduled surgery/procedure as indicated on the consent form.
--- NOTE | 2020-10-20 10:49 | PN.HOSP_ITS ---
Subjective Subjective: Patient seen and examined. SHe was admitted with a complaint of shortness of breath and palpitations. She had recently been diagnosed with small cell lung cancer, and was due to start chemotherapy next week. She developed acute shortness of breath and so was brought into the ED where she was found to be saturating at 50% with a respiratory rate of 40. She was immediately placed on BiPAP and subsequently started having SVT in the ED with heart rate going up to 20. She was subsequently started on amiodarone drip and admitted to the ICU to be managed for SVT. Patient feels much better than she did when she came into the hospital. She has however been going into SVT with heart rate going up to the 170s during my review. Subsequently converted to normal sinus rhythm with application of carotid sinus massage, but as soon as this was stopped, she went promptly back into SVT. Her breathing is much better and she denies any chest pain or any other symptoms. Review systems otherwise negative. Objective Data Objective Data Vital Signs: Vital Signs Temp Pulse Resp BP Pulse Ox 97.2 F L 72 26 H 127/76 H 97 10/20/20 08:00 10/20/20 10:31 10/20/20 10:31 10/20/20 10:31 10/20/20 10:31 Oxygen Flow Rate (L/min) 6 Oxygen Delivery Method Bi-pap Weight: 209 lb 10.554 oz Body Mass Index (BMI) 35.9 Finger Stick Blood Glucose 177 Intake & Output: Intake and Output for Last 24 Hours 10/18/20 10/19/20 10/20/20 23:59 23:59 23:59 Intake Total 754.69 / 754.69 Balance 754.69 / 754.69 Lab / Micro Data Result Diagrams: 10/20/20 06:02 10/20/20 06:02 Labs: Laboratory Results - last 24 hr 10/20/20 10/20/20 10/20/20 02:30 02:30 02:30 WBC 23.4 H RBC 4.57 Hgb 12.4 Hct 38.6 MCV 84.5 MCH 27.1 MCHC 32.1 RDW Std Deviation 44.7 H RDW Coeff of Lashonda 14.6 Plt Count 466 H MPV 9.6 Immature Gran % (Auto) 1.500 H Neut % (Auto) 75.1 H Lymph % (Auto) 14.3 L Cooke % (Auto) 7.6 Eos % (Auto) 0.9 Baso % (Auto) 0.6 Absolute Neuts (auto) 17.6 H Absolute Lymphs (auto) 3.34 Nucleated RBC % 0 Diff Path Review May foll Sodium 126 L Potassium 4.3 Chloride 89 L Carbon Dioxide 29.0 Anion Gap 8 BUN 14 Creatinine 0.94 Estim Creat Clear Calc 55.84 Est GFR (MDRD) Af Amer 77 Est GFR (MDRD) Non-Af 64 BUN/Creatinine Ratio 14.8 Glucose 309 H Lactic Acid 3.5 H* Calcium 8.7 Phosphorus Magnesium Total Bilirubin AST ALT Alkaline Phosphatase Troponin I 0.015 B-Natriuretic Peptide Total Protein Albumin Globulin Albumin/Globulin Ratio [facility] POC Glucose 10/20/20 10/20/20 10/20/20 02:30 02:30 06:02 WBC 20.7 H RBC 4.13 L Hgb 11.1 L Hct 34.0 L MCV 82.3 MCH 26.9 L MCHC 32.6 RDW Std Deviation 44.1 H RDW Coeff of Lashonda 14.7 H Plt Count 348 MPV 9.5 Immature Gran % (Auto) 1.100 H Neut % (Auto) 95.8 H Lymph % (Auto) 1.4 L Cooke % (Auto) 1.5 Eos % (Auto) 0.1 Baso % (Auto) 0.1 Absolute Neuts (auto) 19.9 H Absolute Lymphs (auto) 0.28 L Nucleated RBC % [address] Review Sodium Potassium Chloride Carbon Dioxide Anion Gap BUN Creatinine Estim Creat Clear Calc Est GFR (MDRD) Af Amer Est GFR (MDRD) Non-Af BUN/Creatinine Ratio Glucose Lactic Acid Calcium Phosphorus Magnesium 1.5 L Total Bilirubin AST ALT Alkaline Phosphatase Troponin I B-Natriuretic Peptide 167.5 H Total Protein Albumin Globulin Albumin/Globulin Ratio [facility] POC Glucose 10/20/20 10/20/20 10/20/20 06:02 06:40 10:05 WBC RBC Hgb Hct MCV MCH MCHC RDW Std Deviation RDW Coeff of Lashonda Plt Count MPV Immature Gran % (Auto) Neut % (Auto) Lymph % (Auto) Cooke % (Auto) Eos % (Auto) Baso % (Auto) Absolute Neuts (auto) Absolute Lymphs (auto) Nucleated RBC % Diff Path Review Sodium 124 L Potassium 3.5 Chloride 87 L Carbon Dioxide 27.0 Anion Gap 10 BUN 14 Creatinine 0.89 Estim Creat Clear Calc 56.60 Est GFR (MDRD) Af Amer 82 Est GFR (MDRD) Non-Af 68 BUN/Creatinine Ratio 15.7 Glucose 276 H Lactic Acid 3.6 H* Calcium 8.2 L Phosphorus 4.3 Magnesium 1.2 L Total Bilirubin 0.30 AST 30 ALT 33 Alkaline Phosphatase 67 Troponin I B-Natriuretic Peptide Total Protein 6.6 Albumin 3.1 L Globulin 3.5 Albumin/Globulin Ratio 0.9 TSH 0.49 POC Glucose 291 H Micro: Microbiology 10/20/20 03:20 Nasal Secretion SARS-CoV-2 Antigen (Rapid) - Final Radiography Diagnostic Testing: Radiology Impression Chest X-Ray 10/20/20 02:19 IMPRESSION: Findings suggestive of interstitial pulmonary edema with bilateral atelectasis as described. Cannot exclude superimposed pneumonitis. Electronically Signed: Maribel Guardado MD at 2:50 EDT , Service support , Physical Exam Const alert, oriented x3 and no apparent distress Exam Limitations: no limitations HEENT head/scalp atraumatic and moist oral mucous membranes Head and Scalp: normocephalic Eyes EOMs intact bilaterally and conjunctivae normal Neck no lymphadenopathy Resp normal respiratory effort and no retractions Cardio S1 normal heart sound, S2 normal heart sound and no murmurs Cardio Narrative: tachycardic, in SVT GI normal to inspection, nondistended, normoactive bowel sounds, soft to palpation, non-tender and non-distended Extremity normal to inspection and full ROM Skin no rashes or lesions noted and no wounds Neuro oriented x3 Sensorium / Orientation: awake and alert Psych affect normal Assessment & Plan Assessment/Plan (1) Acute and chronic respiratory failure with hypoxia: Status: Chronic Code(s): J96.21 - Acute and chronic respiratory failure with hypoxia (2) PSVT (paroxysmal supraventricular tachycardia): Status: Acute Code(s): I47.1 - Supraventricular tachycardia (3) Lung neoplasm: Status: Acute Code(s): D49.1 - Neoplasm of unspecified behavior of respiratory system (4) Diabetic polyneuropathy associated with type 2 diabetes mellitus: Status: Chronic Code(s): E11.42 - Type 2 diabetes mellitus with diabetic polyneuropathy Plan: #Parosxymal SVT * patient's HR remains poorly controlled. HR went up into the 170s, which was temporarily relieved by applying carotid massage * on amiodarone drip. * Cardiology consulted. * 2D echo done,report pending * -magnesium is also low and is being replaced * #Acute hypoxic respiratory failure * likely related to the SVT. * critical care on board * titrate oxygen to maintain sats >90% * #Lactic acidosis * Lactic acid was elevated which was likely due to hypoxia. WBC was also elevated at 21. * Lactic acid trended down with IV fluids. * * Currently on IV levofloxacin * #Hypomagnesemia: * magnesium is 1.2, and is being replaced * #Hyponatremia: * Sodium was 126 on admission and is now down to 124. * This is chronic and is likely due to small cell lung cancer. * # Small cell lung cancer * recently diagnosed. * was scheduled to start chemotherapy next Monday * to follow up with oncology on outpatient basis * #COPD exacerbation * on breathing treatment with bronchodilators. * Titrate oxygen to maintain sats >90% * on IV levofloxacin and IV solumedrol #CAD: s/p stents. on aspirin, atorvastatin, lisinopril and metoprolol #Type 2 diabetes mellitus with polyneuropathy * On Lantus 25 units daily. Insulin sliding scale. Checks AC at bedtime. * #GERD: On PPI #Anxiety and depression: continue current meds #Hypertension: On metoprolol and lisinopril. Lisinopril increased to 50 mg twice daily on account of SVT DVT prophylaxis: lovenox
[2020-10-20] MEDS: Metoprolol Tartrate 50 MG Tablet PO ×2 (10:58→20:55)
--- NOTE | 2020-10-20 11:21 | CASEMGMT ---
Pt is now back on bipap at this time and unable to complete CM assessment. SStaten RN CM
--- NOTE | 2020-10-20 11:23 | CASEMGMT ---
Pt is now back on bipap at this time and unable to complete CM assessment. CM to attempt again later. SStnoreen RN CM
--- NOTE | 2020-10-20 12:10 | NURSING ---
communicated to [facility], rn radiology plan for thoracentesis from Dr. Richardson. Plan to do thoracentesis in room at approx 1230.
[2020-10-20 13:12] LABS: Pathologist Review Reviewed
[2020-10-20] MEDS: Ipratropium 0.5 MG/2.5 ML SOLUTION INHALATION ×2 (13:20→19:43)
[2020-10-20] MEDS: busPIRone 5 MG Tablet PO ×2 (13:31→20:55)
[2020-10-20 13:41] LABS: Bedside Glucose 288 mg/dL (70-110)
--- NOTE | 2020-10-20 13:50 | CASEMGMT ---
MACK WOOD assessment: Face to Face with patient for initial transition planning/care coordination assessment. MACK WOOD introduced self and role at [facility], pt voices understanding and consents to assessment. Pt is sitting up in bed in bipap in no distress. Pt is A/Ox4 and answers all questions appropriately. Care providers, pharmacy, and demographics verified. Presentation: Pt with SOB, 74% on room air on EMS arrival. Pt scheduled for thoracentesis as OP later today. Pt with recent lung CA dx. Admitting dx: Resp failure, PSVT, Lung CA PCP: Felicia Specialists: , cutter and presser Preferred Pharmacy: [facility] Insurance: [facility] community plan Prescription Benefit: Yes Living Will/HPOA: Pt states does not have LW/HPOA but would like to complete AD's at this time. Yordy SCHERER aware, voices understanding. LNOK: Austin Hidalgo, sig other: Harriet Mays, daughter Living Arrangements: Pt states lives with sig other in mobile home with a few steps in and states no concerns at home. Pt is independent with ADL's. Transportation: Pt states drives self or sig other drives and states no transportation concerns. DME/HHC: Pt states has 3L continuous home oxygen thru [employer] and states no need for any further DME. Pt states no hx of HHC or SNF. Pt states no concerns with going home at time of discharge. Pt is unemployed. Pt states does not smoke cigarettes or drink ETOH. Pt states no further concerns/needs. CM to follow for increased home oxygen need and any further discharging planning/needs. Advised pt to ask for CM if any further questions/concerns/needs arise, voices understanding. Pt Goal: Home Plan: Home SStaten MACK WOOD
[2020-10-20 13:56] LABS: LDH 218 U/L (84-246)
[2020-10-20 16:33] LABS: Anion Gap 7 (5-15); BUN 15 mg/dL (7-18); BUN/Creat Ratio 16.5 RATIO (10-20); Calcium,Total 9.1 mg/dL (8.5-10.1); Chloride 88 mmol/L (98-107); Creatinine, Serum 0.91 mg/dL (0.55-1.02); EST Glomerular Filtration Rate 67 mL/min (>60); Est Glom Filt Rate - Afr Amer 81 mL/min (>60); Estimated Creatinine Clearance 55.35 ml/min; Glucose 272 mg/dL (74-106); Magnesium 2.5 mg/dL (1.6-2.6); Sodium Level 121 mmol/L (136-145)
[2020-10-20 17:00] LABS: Bedside Glucose 281 mg/dL (70-110)
[2020-10-20] MEDS: Atorvastatin Calcium 40 MG Tablet PO (20:55)
[2020-10-20 21:16] LABS: Bedside Glucose 253 mg/dL (70-110)
[2020-10-20] MEDS: Fluticasone 0.05% 1 SPRAY NASAL.SRY NASAL (21:43)
[2020-10-21] VITALS (39 sets, daily range): BP systolic 121–162; BP diastolic 66–98; PULSE 62–75; RESP 16–34; TEMP 36.2–36.9; O2SAT 92–98
[2020-10-21] MEDS: Ipratropium 0.5 MG/2.5 ML SOLUTION INHALATION ×4 (01:56→19:18)
[2020-10-21 04:15] LABS: Absolute Lymphocyte Count 0.99 X10^3/uL (0.83-4.51); Absolute Neutrophil Count 14.3 X10^3/uL (2.0-7.7); Basophil# 0.02 X10^3/uL; Basophil% 0.1 % (0-1); Hematocrit 35.7 % (37-47); Hemoglobin 11.5 g/dL (12.0-15.0); Lymphocyte # 0.99 X10^3/ul (0.83-4.51); Lymphocyte % 5.9 % (19-41); Mean Corp Hgb Conc 32.2 g/dL (32-36); Mean Corpuscular Hgb 26.3 pg (27.0-32.0); Mean Corpuscular Volume 81.7 fL (81-99); Mean Platelet Vol. 9.9 fl (6.2-12.0); Monocyte# 1.19 X10^3/uL; Monocyte% 7.1 % (0-10); NRBC Flagged by Analyzer 0 % (0-5); Neutrophil # 14.28 X10^3/uL (2.7-7.7); Neutrophil % 85.8 % (47-70); Platelet Count 401 K/mm3 (150-450); RBC Distribution Width SD 44.8 fl (35.1-43.9); Red Blood Count 4.37 M/mm3 (4.2-5.4); White Blood Count 16.7 K/mm3 (4.4-11.0)
[2020-10-21 04:23] LABS: Anion Gap 8 (5-15); BUN 17 mg/dL (7-18); BUN/Creat Ratio 19.6 RATIO (10-20); Calcium,Total 9.1 mg/dL (8.5-10.1); Chloride 89 mmol/L (98-107); Creatinine, Serum 0.87 mg/dL (0.55-1.02); EST Glomerular Filtration Rate 70 mL/min (>60); Est Glom Filt Rate - Afr Amer 85 mL/min (>60); Glucose 267 mg/dL (74-106); Magnesium 2.2 mg/dL (1.6-2.6); Potassium 4.4 mmol/L (3.5-5.1); Sodium Level 125 mmol/L (136-145)
--- NOTE | 2020-10-21 05:55 | EKG12_ITS ---
Test Reason : AM EKG Blood Pressure : / mmHG Vent. Rate : 064 BPM Atrial Rate : 064 BPM P-R Int : 188 ms QRS Dur : 098 ms QT Int : 552 ms P-R-T Axes : 063 -59 -82 degrees QTc Int : 569 ms Normal sinus rhythm Left axis deviation Anteroseptal infarct , age undetermined T wave abnormality, consider inferolateral ischemia Prolonged QT Abnormal ECG When compared with ECG of 20-OCT-2020 09:23, MANUAL COMPARISON REQUIRED, DATA IS UNCONFIRMED Confirmed by TESSA KAN, VISH ([id number]), visual effects editor JOSE GUADALUPE ALLEN ([id number]) on 10/22/2020 9:12:00 AM Referred By: EMELY Confirmed By:VISH ZARATE MD
[2020-10-21] MEDS: Insulin Lispro 100 UNIT/ML INSULN.PEN SC ×4 (08:17→22:09)
[2020-10-21 08:26] LABS: Bedside Glucose 263 mg/dL (70-110)
--- NOTE | 2020-10-21 08:43 | PN.CC_ITS ---
Assessment & Plan Assessment/Plan (1) Acute and chronic respiratory failure with hypoxia: Status: Chronic Code(s): J96.21 - Acute and chronic respiratory failure with hypoxia (2) PSVT (paroxysmal supraventricular tachycardia): Status: Acute Code(s): I47.1 - Supraventricular tachycardia Plan: RECOMMENDATIONS: 1. Wean FiO2/supplemental oxygen to maintain saturations at or above 90%. 2. Continue Atrovent every 6 hours. 3. Continue empiric antimicrobials and IV steroids. 4. Continue amiodarone and beta-lexa. 5. Over concerns for underlying anxiety, continue Xanax and scheduled BuSpar. 6. Reattempt diuresis today as tolerated. 7. Obtain repeat chest x-ray. IMPRESSIONS: 1. Acute on chronic hypoxemic respiratory failure/COPD with exacerbation The patient has a presumptive history of COPD of unknown severity, as she has not yet completed pulmonary function studies. Unclear precipitating etiology for her exacerbation. The patient does have a history of heart failure with preserved ejection fraction as well, which may also have been contributing to her presenting symptoms, as she did appear to respond to IV diuretic therapy. For now, the patient will be continued on bronchodilators and IV steroids. Given her recent tachyarrhythmia issues, the patient will be continued on scheduled Atrovent. Unfortunately, she has been unable to be weaned from noninvasive positive pressure ventilatory support for any significant amount of time. This may certainly be complicated by the fact that she has underlying anxiety. Therefore, will continue her baseline anxiolytic medications and plan to reattempt gentle diuresis today. Continue to wean FiO2 to maintain saturations at or above 90%. Continue empiric antimicrobials as well. 2. Recent diagnosis of small cell lung cancer/unspecified pleural effusion The patient was recently diagnosed with what is suspected to be limited stage small cell lung cancer. She is supposed to have a port placed with general surgery. However, given the patient's clinical instability, the procedure was canceled. Nevertheless, if the patient does improve from a respiratory pe rspective, I would recommend proceeding with chest port placement and ultrasound-guided thoracentesis of her right pleural effusion to ensure that malignant cells are not present. 3. History of coronary artery disease/PSVT The patient has a known history of coronary artery disease and has been experiencing significant tachy-arrhythmias. The patient's underlying arrhyt hmias have improved with aggressive electrolyte repletion and amiodarone. Cardiology is currently following to assist with medical management. 4. Diabetes mellitus/depression/anxiety/hypertension/GERD Complicates care, management, recovery and prognosis. Discontinue Metformin, given lactic acidemia. Continue sliding scale coverage and Lantus. TIME: 36 minutes of critical care time, independent of procedures, was spent addressing the patient's acute on chronic hypoxemic respiratory failure, COPD with exacerbation, recent diagnosis of small cell lung cancer, pleural effusion, history of coronary artery disease, PSVT, review of all data and collaboration with care team. ([id number]) Subjective Subjective: The patient was seen and examined at the bedside this morning. Events from the last 24 hours have been reviewed. The patient is currently afebrile, hemodynamically stable and maintaining appropriate oxygen saturations on BiPAP with an FiO2 requirement of 30%. The patient was able to tolerate breaks from BiPAP overnight on 6 L/min via nasal cannula. She has not had any further arrhythmia issues overnight. She remains in normal sinus rhythm. The patient does report interval improvement in her shortness of breath. She was unable to have her thoracentesis performed yesterday due to her continuous BiPAP requirement. The initial plans for chest port placement today were canceled by surgery. The patient is currently documented to be overall net +750 mL for the hospital admission. Sodium remains low at 125 with a chloride of 89. Creatinine is stable. Objective Data Objective Data The patient's most recent lab work, culture data and imaging studies have all been personally reviewed. Surface echocardiogram revealed normal LV size with an ejection fraction of 50% and mild segmental systolic dysfunction. Right ventricular systolic pressure was estimated to be 44 mmHg. Rapid coronavirus antigen testing was negative. Vital Signs: Vital Signs Temp Pulse Resp BP Pulse Ox 97.8 F 68 20 H 144/78 H 97 10/21/20 04:00 10/21/20 08:29 10/21/20 08:29 10/21/20 06:00 10/21/20 08:29 Oxygen Flow Rate (L/min) 6 Oxygen Delivery Method Bi-pap Weight: 203 lb 7.787 oz Body Mass Index (BMI) 35.9 Finger Stick Blood Glucose 177 Intake & Output: Intake and Output for Last 24 Hours 10/19/20 10/20/20 10/21/20 23:59 23:59 23:59 Intake Total 1951.36 / 1951.36 Output Total 800 / 800 400 / 400 Balance 1152.36 / 1152.36 -400 / -400 Lab / Micro Data Attestation: I reviewed the patient's lab results. Result Diagrams: 10/25/20 05:53 10/25/20 05:53 Labs: Laboratory Results - last 24 hr 10/20/20 10/20/20 10/20/20 02:30 06:02 10:05 WBC RBC Hgb Hct MCV MCH MCHC RDW Std Deviation RDW Coeff of [place] Plt Count MPV Immature Gran % (Auto) Neut % (Auto) Lymph % (Auto) [place] % (Auto) Eos % (Auto) Baso % (Auto) Absolute Neuts (auto) Absolute Lymphs (auto) Nucleated RBC % Diff Path Review Reviewed Sodium Potassium Chloride Carbon Dioxide Anion Gap BUN Creatinine Estim Creat Clear Calc Est GFR (MDRD) Af Amer Est GFR (MDRD) Non-Af BUN/Creatinine Ratio Glucose Calcium Magnesium Lactate Dehydrogenase 218 Total Protein Cancelled Globulin Cancelled Albumin/Globulin Ratio Cancelled POC Glucose 291 H 10/20/20 10/20/20 10/20/20 13:29 16:00 16:51 WBC RBC Hgb Hct MCV MCH MCHC RDW Std Deviation RDW Coeff of [place] Plt Count MPV Immature Gran % (Auto) Neut % (Auto) Lymph % (Auto) [place] % (Auto) Eos % (Auto) Baso % (Auto) Absolute Neuts (auto) Absolute Lymphs (auto) Nucleated RBC % Diff Path Review Sodium 121 L Potassium 5.0 Chloride 88 L Carbon Dioxide 26.0 Anion Gap 7 BUN 15 Creatinine 0.91 Estim Creat Clear Calc 55.35 Est GFR (MDRD) Af Amer 81 Est GFR (MDRD) Non-Af 67 BUN/Creatinine Ratio 16.5 Glucose 272 H Calcium 9.1 Magnesium 2.5 Lactate Dehydrogenase Total Protein Globulin Albumin/Globulin Ratio POC Glucose 288 H 281 H 10/20/20 10/21/20 10/21/20 21:02 03:55 03:55 WBC 16.7 H RBC 4.37 Hgb 11.5 L Hct 35.7 L MCV 81.7 MCH 26.3 L MCHC 32.2 RDW Std Deviation 44.8 H RDW Coeff of [place] 15.0 H Plt Count 401 MPV 9.9 Immature Gran % (Auto) 1.100 H Neut % (Auto) 85.8 H Lymph % (Auto) 5.9 L [place] % (Auto) 7.1 Eos % (Auto) 0.0 Baso % (Auto) 0.1 Absolute Neuts (auto) 14.3 H Absolute Lymphs (auto) 0.99 Nucleated RBC % 0 Diff Path Review Sodium 125 L Potassium 4.4 Chloride 89 L Carbon Dioxide 28.0 Anion Gap 8 BUN 17 Creatinine 0.87 Estim Creat Clear Calc 57.90 Est GFR (MDRD) Af Amer 85 Est GFR (MDRD) Non-Af 70 BUN/Creatinine Ratio 19.6 Glucose 267 H Calcium 9.1 Magnesium 2.2 Lactate Dehydrogenase Total Protein Globulin Albumin/Globulin Ratio POC Glucose 253 H 10/21/20 08:16 WBC RBC Hgb Hct MCV MCH MCHC RDW Std Deviation RDW Coeff of [place] Plt Count MPV Immature Gran % (Auto) Neut % (Auto) Lymph % (Auto) [place] % (Auto) Eos % (Auto) Baso % (Auto) Absolute Neuts (auto) Absolute Lymphs (auto) Nucleated RBC % Diff Path Review Sodium Potassium Chloride Carbon Dioxide Anion Gap BUN Creatinine Estim Creat Clear Calc Est GFR (MDRD) Af Amer Est GFR (MDRD) Non-Af BUN/Creatinine Ratio Glucose Calcium Magnesium Lactate Dehydrogenase Total Protein Globulin Albumin/Globulin Ratio POC Glucose 263 H Micro: Microbiology 10/20/20 03:20 Nasal Secretion SARS-CoV-2 Antigen (Rapid) - Final Radiography Diagnostic Testing: Radiology Impression Echocardiogram 10/20/20 08:05 Interpretation Summary The study was technically difficult. Contrast injection was performed. Mild segmental systolic dysfunction (see wall motion). The estimated ejection fraction is 50 %. Mild (1+) mitral valve insufficiency. Mild tricuspid valve insufficiency. Mild focal aortic valve calcification. Right ventricular systolic pressure estimated to be 44 mmHg. There is evidence of diastolic dysfunction. Ordering Physician: Wilfrid Richardson Referring Physician: Sarah Duarte Performed By: Simona De Anda, GUILLE, RVT Physical Exam Const alert, oriented x3 and no apparent distress Constitutional Narrative: BiPAP mask in place. General Appearance: cooperative HEENT normocephalic and head/scalp atraumatic Eyes PERRL and EOMs intact bilaterally Chest inspection of chest normal Resp normal respiratory effort Auscultation: diminished lung sounds; Negative for rales, rhonchi or wheezes Cardio regular rate, regular rhythm, S1 normal heart sound and S2 normal heart sound GI normal to inspection, nondistended, normoactive bowel sounds Extremity no clubbing, cyanosis or edema Skin no rashes or lesions noted Neuro oriented x3, CN's II-XII intact bilaterally and moves all extremities Psych cooperative and affect normal Appearance: well kempt Charges/Coding Procedures Pulmonary 9xxxx: [id number] Critical care first hour
--- NOTE | 2020-10-21 09:08 | PCM.PN.CARD ---
Subjective Subjective: The patient is awake and alert. She continues to require O2 support/BiPAP support. Based upon her O2 support/methods she was unable to proceed with her thoracentesis yesterday or her port placement today. She denies any ongoing chest discomfort or recurrent episodes of her previously reported surges with respect to her heartbeat/rhythm. Objective Data Vital Signs: Vital Signs Temp Pulse Resp BP Pulse Ox 97.8 F 68 20 H 144/78 H 97 10/21/20 04:00 10/21/20 08:29 10/21/20 08:29 10/21/20 06:00 10/21/20 08:29 Oxygen Flow Rate (L/min) 6 Oxygen Delivery Method Bi-pap Weight: 203 lb 7.787 oz Body Mass Index (BMI) 35.9 Finger Stick Blood Glucose 177 Intake & Output: Intake and Output for Last 24 Hours 10/19/20 10/20/20 10/21/20 23:59 23:59 23:59 Intake Total 1952.36 / 1952.36 Output Total 800 / 800 400 / 400 Balance 1152.36 / 1152.36 -400 / -400 Lab / Micro Data Result Diagrams: 10/21/20 03:55 10/21/20 03:55 Labs: Laboratory Results - last 24 hr 10/20/20 10/20/20 10/20/20 02:30 06:02 10:05 WBC RBC Hgb Hct MCV MCH MCHC RDW Std Deviation RDW Coeff of [place] Plt Count MPV Immature Gran % (Auto) Neut % (Auto) Lymph % (Auto) [place] % (Auto) Eos % (Auto) Baso % (Auto) Absolute Neuts (auto) Absolute Lymphs (auto) Nucleated RBC % Diff Path Review Reviewed Sodium Potassium Chloride Carbon Dioxide Anion Gap BUN Creatinine Estim Creat Clear Calc Est GFR (MDRD) Af Amer Est GFR (MDRD) Non-Af BUN/Creatinine Ratio Glucose Calcium Magnesium Lactate Dehydrogenase 218 Total Protein Cancelled Globulin Cancelled Albumin/Globulin Ratio Cancelled POC Glucose 291 H 10/20/20 10/20/20 10/20/20 13:29 16:00 16:51 WBC RBC Hgb Hct MCV MCH MCHC RDW Std Deviation RDW Coeff of [place] Plt Count MPV Immature Gran % (Auto) Neut % (Auto) Lymph % (Auto) [place] % (Auto) Eos % (Auto) Baso % (Auto) Absolute Neuts (auto) Absolute Lymphs (auto) Nucleated RBC % Diff Path Review Sodium 121 L Potassium 5.0 Chloride 88 L Carbon Dioxide 26.0 Anion Gap 7 BUN 15 Creatinine 0.91 Estim Creat Clear Calc 55.35 Est GFR (MDRD) Af Amer 81 Est GFR (MDRD) Non-Af 67 BUN/Creatinine Ratio 16.5 Glucose 272 H Calcium 9.1 Magnesium 2.5 Lactate Dehydrogenase Total Protein Globulin Albumin/Globulin Ratio POC Glucose 288 H 281 H 10/20/20 10/21/20 10/21/20 21:02 03:55 03:55 WBC 16.7 H RBC 4.37 Hgb 11.5 L Hct 35.7 L MCV 81.7 MCH 26.3 L MCHC 32.2 RDW Std Deviation 44.8 H RDW Coeff of [place] 15.0 H Plt Count 401 MPV 9.9 Immature Gran % (Auto) 1.100 H Neut % (Auto) 85.8 H Lymph % (Auto) 5.9 L [place] % (Auto) 7.1 Eos % (Auto) 0.0 Baso % (Auto) 0.1 Absolute Neuts (auto) 14.3 H Absolute Lymphs (auto) 0.99 Nucleated RBC % 0 [address] Path Review Sodium 125 L Potassium 4.4 Chloride 89 L Carbon Dioxide 28.0 Anion Gap 8 BUN 17 Creatinine 0.87 Estim Creat Clear Calc 57.90 Est GFR (MDRD) Af Amer 85 Est GFR (MDRD) Non-Af 70 BUN/Creatinine Ratio 19.6 Glucose 267 H Calcium 9.1 Magnesium 2.2 Lactate Dehydrogenase Total Protein Globulin Albumin/Globulin Ratio POC Glucose 253 H 10/21/20 08:16 WBC RBC Hgb Hct MCV MCH MCHC RDW Std Deviation RDW Coeff of [place] Plt Count MPV Immature Gran % (Auto) Neut % (Auto) Lymph % (Auto) [place] % (Auto) Eos % (Auto) Baso % (Auto) Absolute Neuts (auto) Absolute Lymphs (auto) Nucleated RBC % Diff Path Review Sodium Potassium Chloride Carbon Dioxide Anion Gap BUN Creatinine Estim Creat Clear Calc Est GFR (MDRD) Af Amer Est GFR (MDRD) Non-Af BUN/Creatinine Ratio Glucose Calcium Magnesium Lactate Dehydrogenase Total Protein Globulin Albumin/Globulin Ratio POC Glucose 263 H Micro: Microbiology 10/20/20 03:20 Nasal Secretion SARS-CoV-2 Antigen (Rapid) - Final Cardiology Labs/Tests 10/20/20 16:00: Sodium 121 L, Potassium 5.0, Chloride 88 L, Carbon Dioxide 26.0, Anion Gap 7, BUN 15, Creatinine 0.91, Est GFR (MDRD) Af Amer 81, Est GFR (MDRD) Non-Af 67, BUN/Creatinine Ratio 16.5, Glucose 272 H, Calcium 9.1, Magnesium 2.5 10/21/20 03:55: WBC 16.7 H, RBC 4.37, Hgb 11.5 L, Hct 35.7 L, MCV 81.7, MCH 26.3 L, MCHC 32.2, Plt Count 401, MPV 9.9, Immature Gran % (Auto) 1.100 H, Neut % (Auto) 85.8 H, Lymph % (Auto) 5.9 L, [place] % (Auto) 7.1, Eos % (Auto) 0.0, Baso % (Auto) 0.1, Absolute Neuts (auto) 14.3 H, Nucleated RBC % 0 10/21/20 03:55: Sodium 125 L, Potassium 4.4, Chloride 89 L, Carbon Dioxide 28.0, Anion Gap 8, BUN 17, Creatinine 0.87, Est GFR (MDRD) Af Amer 85, Est GFR (MDRD) Non-Af 70, BUN/Creatinine Ratio 19.6, Glucose 267 H, Calcium 9.1, Magnesium 2.2 Rhythm: Sinus rhythm EKG: Sinus rhythm; left axis deviation; anteroseptal MS of indeterminate age; T wave abnormality-consider myocardial uuevldul-[id number]-[id number]-inferior ECHO: See below Radiography Diagnostic Testing: Radiology Impression Echocardiogram 10/20/20 08:05 Interpretation Summary The study was technically difficult. Contrast injection was performed. Mild segmental systolic dysfunction (see wall motion). The estimated ejection fraction is 50 %. Mild (1+) mitral valve insufficiency. Mild tricuspid valve insufficiency. Mild focal aortic valve calcification. Right ventricular systolic pressure estimated to be 44 mmHg. There is evidence of diastolic dysfunction. Ordering Physician: Wilfrid Richardson Referring Physician: Sarah Duarte Performed By: Simona De Anda RDCS, RVT Physical Exam Narrative This is a 60-year-old female who appears to be awake and alert at this time with the appearance of chronic shortness of breath/dyspnea. Const alert and oriented x3 Orientation / Consciousness: awake HEENT normocephalic Eyes PERRL, EOMs intact bilaterally, conjunctivae normal and no scleral icterus Neck full ROM and supple Chest inspection of chest normal Resp Auscultation: wheezes and diminished lung sounds Cardio regular rhythm, S1 normal heart sound and S2 normal heart sound GI normal to inspection, nondistended, normoactive bowel sounds Extremity General Extremity: edema bilateral lower extremity Details: trace Skin no rashes or lesions noted Neuro oriented x3 and moves all extremities Psych mental status grossly normal Assessment & Plan Assessment/Plan (1) Cardiac dysrhythmia: Status: Acute Code(s): I49.9 - Cardiac arrhythmia, unspecified Plan: The patient has findings compatible with multiple underlying cardiac dysrhythmias. 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 The patient's cardiac dysrhythmias may be exacerbated by her underlying electrolyte related issues as well as her pulmonary issues superimposed upon her underlying chronic underlying cardiovascular issues. At the moment she is in the ICU. She did receive electrolyte supplements. She received IV beta-lexa therapy and subsequent increase in her oral beta-lexa therapy dose. She was placed on additional medical therapy with IV amiodarone. Since the aforementioned measures it appears she has remained in sinus rhythm. At the present time she will need continued monitoring and supplement of her electrolytes as deemed appropriate. She will continue her medical therapy with beta-blockers. She will continue her IV amiodarone therapy at this time with consideration to future transition to discontinuation of her IV amiodarone and transition to oral amiodarone and/or discontinuation of antiarrhythmic therapy altogether. (2) Atherosclerosis of [place] coronary artery of [place] heart without angina pectoris: Status: Chronic Code(s): I25.10 - Atherosclerotic heart disease of [place] coronary artery without angina pectoris Plan: She does have a history of underlying CAD. At the moment she is not complaining of symptoms of classic angina pectoris. Her initial troponin I level was negative. Her ECG changes are noted. Her echocardiogram from yesterday was reviewed. At the moment the plan is for continued conservative medical management while she undergoes her pulmonary evaluation with respect to her underlying lung carcinoma staging and therapy. Depending upon her clinical course she may need reevaluation in the cardiac catheterization laboratory at some point in time. (3) Presence of stent in coronary artery: Status: Chronic Code(s): Z95.5 - Presence of coronary angioplasty implant and graft Plan: She has a history of previous PCI to the LAD. Her previous diagnostic cardiac catheterization is as noted. Again she will continue medical management and follow-up at this time. (4) Hyperlipidemia: Status: Chronic Code(s): E78.5 - Hyperlipidemia, unspecified Qualifiers: Hyperlipidemia type: unspecified Qualified Code(s): E78.5 - Hyperlipidemia, unspecified Plan: She does need to continue risk factor evaluation care as deemed appropriate. (5) Hypertension: Status: Chronic Code(s): I10 - Essential (primary) hypertension Qualifiers: Hypertension type: essential hypertension Qualified Code(s): I10 - Essential (primary) hypertension Plan: Her blood pressure will need to be monitored as her medications were adjusted. (6) COPD exacerbation: Status: Chronic Code(s): J44.1 - Chronic obstructive pulmonary disease with (acute) exacerbation Plan: She is being evaluated by pulmonology/critical care medicine for COPD exacerbation. (7) Small cell lung cancer: Status: Acute Code(s): C34.90 - Malignant neoplasm of unspecified part of unspecified bronchus or lung Plan: She is undergoing further diagnostic studies for her diagnosis of small cell lung carcinoma with respect to staging as well as the need for initiation of therapy with IV chemotherapy. Addt'l Comments The patient's case was discussed and reviewed with the patient, Dr. Richardson, and Dr. Acevedo. At the present time the plan is for continued conservative cardiovascular medical therapy and to continue her pulmonary evaluation care to hopefully allow her to receive her thoracentesis for additional lung carcinoma staging and her port placement to initiate chemotherapy.
--- NOTE | 2020-10-21 09:35 | RAD_ITS ---
STUDY: X-RAY CHEST REASON FOR EXAM: Female, 60 years old. Respiratory Failure TECHNIQUE: Single AP portable view of the chest. COMPARISON: Comparison is made with prior examination dated 10/20/2020. FINDINGS: EKG electrodes are seen. Since prior study, there is improved aeration in both lungs. Residual vascular congestion and CHF persists. Blunting of the right costophrenic angle. Questionable faint nodular density in the right middle lobe. There is mild cardiac enlargement. Normal mediastinum and melinda. Normal visualized pulmonary arteries. There is atherosclerotic calcification of the aortic arch with tortuosity. There are degenerative changes of the visualized thoracic spine. Normal visualized ribs, clavicles, and shoulders. There is no demonstrated abnormality of the visualized soft tissue structures of the upper abdomen. RAD/Chest 1 View (Portable) IMPRESSION: Improved aeration as compared to prior study. Residual vascular congestion and CHF persists. Electronically Signed: Carlos Chou MD at 9:52 EDT , Service support ,
[2020-10-21] MEDS: busPIRone 5 MG Tablet 10 MG PO ×2 (10:08→22:02)
[2020-10-21] MEDS: Fluticasone 0.05% 1 SPRAY NASAL.SRY NASAL ×2 (10:09→22:02)
[2020-10-21] MEDS: Enoxaparin 40 MG/0.4 ML Syringe SC (10:09)
[2020-10-21] MEDS: FLUoxetine 20 MG Capsule 60 MG PO (10:15)
[2020-10-21] MEDS: Pantoprazole Sodium 40 MG Tablet PO (10:15)
[2020-10-21] MEDS: Lisinopril 5 MG Tablet PO (10:15)
[2020-10-21] MEDS: Acetaminophen 325 MG Tablet 650 MG PO ×2 (10:15→20:01)
[2020-10-21] MEDS: Metoprolol Tartrate 50 MG Tablet PO ×2 (10:15→22:02)
[2020-10-21] MEDS: Amiodarone 360 MG in Dextrose 5% Viaflo Bag 192.8 ML 16.7 MG CONT INF ×2 (10:16→22:04)
[2020-10-21] MEDS: Isosorbide Mononitrate 30 MG Tablet PO (10:17)
--- NOTE | 2020-10-21 12:05 | PN.HOSP_ITS ---
Subjective Subjective: Patient seen and examined. Patient was on BiPAP today and says she had become more short of breath so was placed on BiPAP. She has no other complaints. Heart rate has remained controlled but she remains on amiodarone drip. She is in negative balance by 222 mils. Review of systems otherwise negative. Objective Data Objective Data Vital Signs: Vital Signs Temp Pulse Resp BP Pulse Ox 98.5 F 72 28 H 144/77 H 94 10/21/20 08:00 10/21/20 11:04 10/21/20 11:02 10/21/20 10:00 10/21/20 11:02 Oxygen Flow Rate (L/min) 6 Oxygen Delivery Method Bi-pap Weight: 203 lb 7.787 oz Body Mass Index (BMI) 35.9 Finger Stick Blood Glucose 177 Intake & Output: Intake and Output for Last 24 Hours 10/19/20 10/20/20 10/21/20 23:59 23:59 23:59 Intake Total 1952.36 / 1952.36 250 / 250 Output Total 800 / 800 400 / 400 Balance 1152.36 / 1152.36 -150 / -150 Lab / Micro Data Result Diagrams: 10/21/20 03:55 10/21/20 03:55 Labs: Laboratory Results - last 24 hr 10/20/20 10/20/20 10/20/20 02:30 06:02 13:29 WBC RBC Hgb Hct MCV MCH MCHC RDW Std Deviation RDW Coeff of [place] Plt Count MPV Immature Gran % (Auto) Neut % (Auto) Lymph % (Auto) [place] % (Auto) Eos % (Auto) Baso % (Auto) Absolute Neuts (auto) Absolute Lymphs (auto) Nucleated RBC % Diff Path Review Reviewed Sodium Potassium Chloride Carbon Dioxide Anion Gap BUN Creatinine Estim Creat Clear Calc Est GFR (MDRD) Af Amer Est GFR (MDRD) Non-Af BUN/Creatinine Ratio Glucose Calcium Magnesium Lactate Dehydrogenase 218 Total Protein Cancelled Globulin Cancelled Albumin/Globulin Ratio Cancelled POC Glucose 288 H 10/20/20 10/20/20 10/20/20 16:00 16:51 21:02 WBC RBC Hgb Hct MCV MCH MCHC RDW Std Deviation RDW Coeff of [place] Plt Count MPV Immature Gran % (Auto) Neut % (Auto) Lymph % (Auto) [place] % (Auto) Eos % (Auto) Baso % (Auto) Absolute Neuts (auto) Absolute Lymphs (auto) Nucleated RBC % Diff Path Review Sodium 121 L Potassium 5.0 Chloride 88 L Carbon Dioxide 26.0 Anion Gap 7 BUN 15 Creatinine 0.91 Estim Creat Clear Calc 55.35 Est GFR (MDRD) Af Amer 81 Est GFR (MDRD) Non-Af 67 BUN/Creatinine Ratio 16.5 Glucose 272 H Calcium 9.1 Magnesium 2.5 Lactate Dehydrogenase Total Protein Globulin Albumin/Globulin Ratio POC Glucose 281 H 253 H 10/21/20 10/21/20 10/21/20 03:55 03:55 08:16 WBC 16.7 H RBC 4.37 Hgb 11.5 L Hct 35.7 L MCV 81.7 MCH 26.3 L MCHC 32.2 RDW Std Deviation 44.8 H RDW Coeff of [place]ashonda 15.0 H Plt Count 401 MPV 9.9 Immature Gran % (Auto) 1.100 H Neut % (Auto) 85.8 H Lymph % (Auto) 5.9 L [place] % (Auto) 7.1 Eos % (Auto) 0.0 Baso % (Auto) 0.1 Absolute Neuts (auto) 14.3 H Absolute Lymphs (auto) 0.99 Nucleated RBC % 0 Diff Path Review Sodium 125 L Potassium 4.4 Chloride 89 L Carbon Dioxide 28.0 Anion Gap 8 BUN 17 Creatinine 0.87 Estim Creat Clear Calc 57.90 Est GFR (MDRD) Af Amer 85 Est GFR (MDRD) Non-Af 70 BUN/Creatinine Ratio 19.6 Glucose 267 H Calcium 9.1 Magnesium 2.2 Lactate Dehydrogenase Total Protein Globulin Albumin/Globulin Ratio POC Glucose 263 H Micro: Microbiology 10/20/20 03:20 Nasal Secretion SARS-CoV-2 Antigen (Rapid) - Final Radiography Diagnostic Testing: Radiology Impression Echocardiogram 10/20/20 08:05 Interpretation Summary The study was technically difficult. Contrast injection was performed. Mild segmental systolic dysfunction (see wall motion). The estimated ejection fraction is 50 %. Mild (1+) mitral valve insufficiency. Mild tricuspid valve insufficiency. Mild focal aortic valve calcification. Right ventricular systolic pressure estimated to be 44 mmHg. There is evidence of diastolic dysfunction. Ordering Physician: Wilfrid Richardson Referring Physician: Sarah Duarte Performed By: Simona De Anda, RDCS, RVT Chest X-Ray 10/21/20 09:35 IMPRESSION: Improved aeration as compared to prior study. Residual vascular congestion and CHF persists. Electronically Signed: Carlos Chou MD at 9:52 EDT , Service support , Physical Exam Const alert, oriented x3 and no apparent distress Constitutional Narrative: in acute respiratory distress Exam Limitations: no limitations HEENT head/scalp atraumatic and moist oral mucous membranes Eyes EOMs intact bilaterally and conjunctivae normal Neck no lymphadenopathy and supple Lymph Lymphatic: no lymphadenopathy noted Resp normal respiratory effort and no retractions Resp Narrative: Diminished breath sounds bibasilarly. On BiPAP. Few crackles bilaterally. Effort and Inspection: tachypneic and labored Auscultation: diminished lung sounds Cardio S1 normal heart sound, S2 normal heart sound and no murmurs Cardio Narrative: tachycardic, in SVT Rate: tachycardic Rhythm: abnormal rhythm GI normal to inspection, nondistended, normoactive bowel sounds, soft to palpation, non-tender and non-distended Extremity normal to inspection, full ROM and normal capillary refill Skin no rashes or lesions noted and no wounds General Skin Exam: no breakdown Neuro oriented x3 and CN's II-XII intact bilaterally Sensorium / Orientation: awake and alert Psych affect normal Appearance: appropriate Mood & Affect: anxious Assessment & Plan Assessment/Plan (1) Acute and chronic respiratory failure with hypoxia: Status: Chronic Code(s): J96.21 - Acute and chronic respiratory failure with hypoxia (2) PSVT (paroxysmal supraventricular tachycardia): Status: Acute Code(s): I47.1 - Supraventricular tachycardia (3) Diabetic polyneuropathy associated with type 2 diabetes mellitus: Status: Chronic Code(s): E11.42 - Type 2 diabetes mellitus with diabetic polyneuropathy (4) Lung neoplasm: Status: Acute Code(s): D49.1 - Neoplasm of unspecified behavior of respiratory system Plan: #Parosxymal SVT * remains on amiodarone drip. * Cardiology on board; plan is to try to wean off amiodarone drip as tolerated. * 2D echo: EF of 50% with evidence of diastolic dysfunction and hypokinesis. RVSP is 44 mmHg. * #Acute hypoxic respiratory failure * likely related to the SVT and pleural effusion. Unable to have thoracentesis done as she keeps on requiring BiPAP. * critical care on board * Now on BiPAP. * #Lactic acidosis * Lactic acid was elevated which was likely due to hypoxia. WBC was also elevated at 21. * Resolved. * Currently on IV levofloxacin * #Hypomagnesemia: * Resolved with replacement. * #Pleural effusion: * couldnt have thoracentesis due to ongoing bipap need. Pulmonology on board. * Chest x-ray today showed improved aeration as compared to prior study with residual vascular congestion and persistent CHF. * She has been diuresed with IV Lasix. #Hyponatremia: * Sodium was 126 on admission and is now down to 124. * This is chronic and is likely due to small cell lung cancer. * # Small cell lung cancer * recently diagnosed. * was scheduled to start chemotherapy next Monday * to follow up with oncology on outpatient basis * #COPD exacerbation * on breathing treatment with bronchodilators. * Titrate oxygen to maintain sats >90%. Now requiring bipap * on IV levofloxacin and IV solumedrol #CAD: s/p stents. on aspirin, atorvastatin, lisinopril and metoprolol #Type 2 diabetes mellitus with polyneuropathy * On Lantus 25 units daily. Insulin sliding scale. Checks AC at bedtime. * #GERD: On PPI #Anxiety and depression: continue current meds-xanax and buspar #Hypertension: On metoprolol and lisinopril. DVT prophylaxis: lovenox Visit Charges Inpatient E&M: 93643 [facility] Hosp L3
[2020-10-21] MEDS: Furosemide 40 MG/4 ML Vial IV (12:20)
[2020-10-21] MEDS: 0.9% Saline Lock 10 ML Syringe IV ×2 (12:20→15:25)
[2020-10-21 12:26] LABS: Bedside Glucose 255 mg/dL (70-110)
--- NOTE | 2020-10-21 13:30 | CASEMGMT ---
Social Work SW assisted pt with completing Health Care POA and Living Will. Pt naming her significant other Austin Hidalgo as HCPOA. Original given to pt and copy placed on pt chart. Per pt request, phone call to arlet Larios and updated that documents have been completed. ALEXANDRO Oliveros
--- NOTE | 2020-10-21 14:52 | CASEMGMT ---
MACK WOOD NOTE: Pt qualifies for a Palliative referral per the [facility] palliative screening tool at this time. Dr Acevedo made aware and states is not agreeable to Palliative referral at this time. Holli HERNANDEZ RN CM
[2020-10-21 17:01] LABS: Bedside Glucose 235 mg/dL (70-110)
[2020-10-21] MEDS: Atorvastatin Calcium 40 MG Tablet PO (22:02)
[2020-10-21] MEDS: ALPRAZolam 0.25 MG Tablet PO (22:03)
[2020-10-21] MEDS: Menthol/Lanolin/Calamine/Znox 113 GM Tube 1 APPLIC TOPICAL (22:04)
[2020-10-21 22:21] LABS: Bedside Glucose 323 mg/dL (70-110)
[2020-10-22] VITALS (35 sets, daily range): BP systolic 95–160; BP diastolic 56–101; PULSE 60–71; RESP 14–26; TEMP 36.1–36.7; O2SAT 91–98
[2020-10-22] MEDS: busPIRone 5 MG Tablet 10 MG PO ×3 (05:04→22:24)
[2020-10-22] MEDS: 0.9% Saline Lock 10 ML Syringe IV ×2 (05:04→08:32)
[2020-10-22 05:16] LABS: Absolute Lymphocyte Count 0.73 X10^3/uL (0.83-4.51); Absolute Neutrophil Count 14.1 X10^3/uL (2.0-7.7); Basophil# 0.01 X10^3/uL; Basophil% 0.1 % (0-1); Eosinophil# 0.14 X10^3/uL; Eosinophils% 0.9 % (0-5); Hemoglobin 11.2 g/dL (12.0-15.0); Lymphocyte # 0.73 X10^3/ul (0.83-4.51); Lymphocyte % 4.6 % (19-41); Mean Corp Hgb Conc 32.9 g/dL (32-36); Mean Corpuscular Hgb 27.1 pg (27.0-32.0); Mean Corpuscular Volume 82.3 fL (81-99); Mean Platelet Vol. 9.8 fl (6.2-12.0); Monocyte# 0.79 X10^3/uL; NRBC Flagged by Analyzer 0 % (0-5); Neutrophil # 14.06 X10^3/uL (2.7-7.7); Neutrophil % 88.6 % (47-70); POSITIVE MORPHOLOGY YES; Platelet Count 390 K/mm3 (150-450); RBC Distribution Width SD 45.1 fl (35.1-43.9); Red Blood Count 4.13 M/mm3 (4.2-5.4); White Blood Count 15.9 K/mm3 (4.4-11.0)
[2020-10-22 05:27] LABS: Anion Gap 6 (5-15); BUN 22 mg/dL (7-18); BUN/Creat Ratio 26.2 RATIO (10-20); Calcium,Total 9.4 mg/dL (8.5-10.1); Chloride 89 mmol/L (98-107); Creatinine, Serum 0.84 mg/dL (0.55-1.02); EST Glomerular Filtration Rate 73 mL/min (>60); Est Glom Filt Rate - Afr Amer 88 mL/min (>60); Estimated Creatinine Clearance 59.96 ml/min; Glucose 302 mg/dL (74-106); Potassium 4.5 mmol/L (3.5-5.1); Sodium Level 128 mmol/L (136-145)
[2020-10-22 05:36] LABS: Differential Indicated SCAN CRITERIA MET
[2020-10-22] MEDS: Ipratropium 0.5 MG/2.5 ML SOLUTION INHALATION ×3 (07:30→19:13)
[2020-10-22] MEDS: Insulin Lispro 100 UNIT/ML INSULN.PEN SC ×4 (07:44→22:26)
[2020-10-22 08:01] LABS: Bedside Glucose 313 mg/dL (70-110)
--- NOTE | 2020-10-22 08:01 | PN.CC_ITS ---
Assessment & Plan Assessment/Plan (1) Acute and chronic respiratory failure with hypoxia: (2) PSVT (paroxysmal supraventricular tachycardia): PLAN: RECOMMENDATIONS: 1. Wean FiO2/supplemental oxygen to maintain saturations at or above 90%. 2. Continue Atrovent every 6 hours. 3. Continue empiric antimicrobials and IV steroids. 4. Continue amiodarone and beta-lexa. 5. Over concerns for underlying anxiety, continue Xanax and scheduled BuSpar. 6. Reattempt diuresis today as tolerated. IMPRESSIONS: 1. Acute on chronic hypoxemic respiratory failure/COPD with exacerbation The patient has a presumptive history of COPD of unknown severity, as she has not yet completed pulmonary function studies. Unclear precipitating etiology for her exacerbation. The patient does have a history of heart failure with preserved ejection fraction as well, which may also have been contributing to her presenting symptoms, as she did appear to respond to IV diuretic therapy. For now, the patient will be continued on bronchodilators and IV steroids. Give n her recent tachyarrhythmia issues, the patient will be continued on scheduled Atrovent. Unfortunately, she has been unable to be weaned from noninvasive positive pressure ventilatory support for any significant amount of time. This may certainly be complicated by the fact that she has underlying anxiety. Therefore, will continue her baseline anxiolytic medications and plan to reattempt gentle diuresis today. Continue to wean FiO2 to maintain saturations at or above 90%. Continue empiric antimicrobials as well. 2. Recent diagnosis of small cell lung cancer/unspecified pleural effusion The patient was recently diagnosed with what is suspected to be limited stage small cell lung cancer. She is supposed to have a port placed with general surgery. However, given the patient's clinical instability, the procedure was canceled. Nevertheless, if the patient does improve from a respiratory perspective, I would recommend proceeding with chest port placement and ultrasound-guided thoracentesis of her right pleural effusion to ensure that malignant cells are not present. 3. History of coronary artery disease/PSVT The patient has a known history of coronary artery disease and has been experiencing significant tachy-arrhythmias. The patient's underlying arrhythmias have improved with aggressive electrolyte repletion and amiodarone. Cardiology is currently following to assist with medical management. 4. Diabetes mellitus/depression/anxiety/hypertension/GERD Complicates care, management, recovery and prognosis. Discontinue Metformin, given lactic acidemia. Continue sliding scale coverage and Lantus. This note was generated with pyco dictation software. It may contain incorrect words, spelling, and punctuation that were not noted in checking the note before signing. Subjective Subjective: The patient was seen and examined at the bedside this morning. Events from the last 24 hours have been reviewed. The patient is currently afebrile, hemodynamically stable and maintaining appropriate oxygen saturations on BiPAP with an FiO2 requirement of 30%. The patient is anxiety and panic attacks have made it difficult for her to be weaned from BiPAP. Her underlying anxiolytic medications have been dose optimized. Objective Data Objective Data The patient's most recent lab work, culture data and imaging studies have all been personally reviewed. Surface echocardiogram revealed normal LV size with an ejection fraction of 50% and mild segmental systolic dysfunction. Right ventricular systolic pressure was estimated to be 44 mmHg. Rapid coronavirus antigen testing was negative. Vital Signs: Vital Signs Temp Pulse Resp BP Pulse Ox 98.0 F 62 22 H 160/87 H 93 10/22/20 04:00 10/22/20 07:00 10/22/20 07:00 10/22/20 07:00 10/22/20 07:00 Oxygen Flow Rate (L/min) 8 Oxygen Delivery Method Nasal Cannula Weight: 198 lb 10.184 oz Body Mass Index (BMI) 35.9 Finger Stick Blood Glucose 177 Intake & Output: Intake and Output for Last 24 Hours 10/20/20 10/21/20 10/22/20 23:59 23:59 23:59 Intake Total 1952.36 / 1952.36 1362.06 / 1362.06 120 / 120 Output Total 800 / 800 700 / 700 300 / 300 Balance 1152.36 / 1152.36 662.06 / 662.06 -180 / -180 Lab / Micro Data Attestation: I reviewed the patient's lab results. Result Diagrams: 10/25/20 05:53 10/25/20 05:53 Labs: Laboratory Results - last 24 hr 10/21/20 10/21/20 10/21/20 08:16 12:16 16:55 WBC RBC Hgb Hct MCV MCH MCHC RDW Std Deviation RDW Coeff of Lashonda Plt Count MPV Immature Gran % (Auto) Neut % (Auto) Lymph % (Auto) [place] % (Auto) Eos % (Auto) Baso % (Auto) Absolute Neuts (auto) Absolute Lymphs (auto) Nucleated RBC % Sodium Potassium Chloride Carbon Dioxide Anion Gap BUN Creatinine Estim Creat Clear Calc Est GFR (MDRD) Af Amer Est GFR (MDRD) Non-Af BUN/Creatinine Ratio Glucose Calcium POC Glucose 263 H 255 H 235 H 10/21/20 10/22/20 10/22/20 22:09 04:50 04:50 WBC 15.9 H RBC 4.13 L Hgb 11.2 L Hct 34.0 L MCV 82.3 MCH 27.1 MCHC 32.9 RDW Std Deviation 45.1 H RDW Coeff of Lashonda 15.0 H Plt Count 390 MPV 9.8 Immature Gran % (Auto) 0.800 Neut % (Auto) 88.6 H Lymph % (Auto) 4.6 L [place] % (Auto) 5.0 Eos % (Auto) 0.9 Baso % (Auto) 0.1 Absolute Neuts (auto) 14.1 H Absolute Lymphs (auto) 0.73 L Nucleated RBC % 0 Sodium 128 L Potassium 4.5 Chloride 89 L Carbon Dioxide 33.0 H Anion Gap 6 BUN 22 H Creatinine 0.84 Estim Creat Clear Calc 59.96 Est GFR (MDRD) Af Amer 88 Est GFR (MDRD) Non-Af 73 BUN/Creatinine Ratio 26.2 H Glucose 302 H Calcium 9.4 POC Glucose 323 H 10/22/20 07:41 WBC RBC Hgb Hct MCV MCH MCHC RDW Std Deviation RDW Coeff of [place]ashonda Plt Count MPV Immature Gran % (Auto) Neut % (Auto) Lymph % (Auto) [place] % (Auto) Eos % (Auto) Baso % (Auto) Absolute Neuts (auto) Absolute Lymphs (auto) Nucleated RBC % Sodium Potassium Chloride Carbon Dioxide Anion Gap BUN Creatinine Estim Creat Clear Calc Est GFR (MDRD) Af Amer Est GFR (MDRD) Non-Af BUN/Creatinine Ratio Glucose Calcium POC Glucose 313 H Micro: Microbiology 10/20/20 03:20 Nasal Secretion SARS-CoV-2 Antigen (Rapid) - Final Radiography Diagnostic Testing: Radiology Impression Chest X-Ray 10/21/20 09:35 IMPRESSION: Improved aeration as compared to prior study. Residual vascular congestion and CHF persists. Electronically Signed: Carlos Chou MD at 9:52 EDT , Service support , Physical Exam Const alert and no apparent distress Constitutional Narrative: BiPAP mask remains in place General Appearance: cooperative HEENT normocephalic and head/scalp atraumatic Eyes PERRL and EOMs intact bilaterally Resp normal respiratory effort Effort and Inspection: able to speak in complete sentences Auscultation: diminished lung sounds; Negative for rales, rhonchi or wheezes Cardio regular rate, regular rhythm, S1 normal heart sound and S2 normal heart sound GI normal to inspection, nondistended, normoactive bowel sounds Extremity no clubbing, cyanosis or edema Skin no rashes or lesions noted Neuro oriented x3, CN's II-XII intact bilaterally and moves all extremities Psych cooperative and affect normal Appearance: well kempt Charges/Coding Visit Charges Inpatient E&M: 83256 Subs Hosp L3
--- NOTE | 2020-10-22 08:03 | EKG12_ITS ---
Test Reason : REPEAT Blood Pressure : / mmHG Vent. Rate : 061 BPM Atrial Rate : 061 BPM P-R Int : 188 ms QRS Dur : 098 ms QT Int : 564 ms P-R-T Axes : 041 -59 -81 degrees QTc Int : 567 ms Normal sinus rhythm Left axis deviation Anteroseptal infarct , age undetermined T wave abnormality, consider inferolateral ischemia Prolonged QT Abnormal ECG When compared with ECG of 21-OCT-2020 05:10, MANUAL COMPARISON REQUIRED, DATA IS UNCONFIRMED Confirmed by OMID KAN, SHAWANDA ([id number]), publication editor JOSE GUADALUPE ALLEN ([id number]) on 10/26/2020 1:31:33 PM Referred By: James Esquivel Confirmed By:SERGIO ANNE MD
--- NOTE | 2020-10-22 08:17 | PN_ITS ---
Progress Note I saw the patient this morning and she appears to be more stable. The patient has been rescheduled for Monday afternoon for port placement. They will call her Monday with a definite time. James Esquivel MD Pager: [facility] [address] [place] [address], [address] [place] [phone] Office:
--- NOTE | 2020-10-22 08:17 | PCM.PN.BLA ---
Progress Note I saw the patient this morning and she appears to be more stable. The patient has been rescheduled for Monday afternoon for port placement. They will call her Monday with a definite time. James Esquivel MD Pager: [facility] [address] [place] [address], [address] [place] [phone] Office:
[2020-10-22] MEDS: Furosemide 40 MG/4 ML Vial IV (08:32)
--- NOTE | 2020-10-22 09:01 | PN.CARD_ITS ---
Subjective Subjective: The patient is back on her BiPAP device this morning. She states it helps with her breathing. She denies any ongoing chest discomfort or palpitations/rapid heart rate sensations. Objective Data Vital Signs: Vital Signs Temp Pulse Resp BP Pulse Ox 97.1 F L 61 19 H 143/70 H 92 10/22/20 08:00 10/22/20 08:00 10/22/20 08:00 10/22/20 08:00 10/22/20 08:00 Oxygen Flow Rate (L/min) 8 Oxygen Delivery Method Bi-pap Weight: 198 lb 10.184 oz Body Mass Index (BMI) 35.9 Finger Stick Blood Glucose 177 Intake & Output: Intake and Output for Last 24 Hours 10/20/20 10/21/20 10/22/20 23:59 23:59 23:59 Intake Total 1952.36 / 1952.36 1362.06 / 1362.06 120 / 120 Output Total 800 / 800 700 / 700 300 / 300 Balance 1152.36 / 1152.36 662.06 / 662.06 -180 / -180 Lab / Micro Data Result Diagrams: 10/22/20 04:50 10/22/20 04:50 Labs: Laboratory Results - last 24 hr 10/21/20 10/21/20 10/21/20 12:16 16:55 22:09 WBC RBC Hgb Hct MCV MCH MCHC RDW Std Deviation RDW Coeff of Lashonda Plt Count MPV Immature Gran % (Auto) Neut % (Auto) Lymph % (Auto) [place] % (Auto) Eos % (Auto) Baso % (Auto) Absolute Neuts (auto) Absolute Lymphs (auto) Nucleated RBC % Sodium Potassium Chloride Carbon Dioxide Anion Gap BUN Creatinine Estim Creat Clear Calc Est GFR (MDRD) Af Amer Est GFR (MDRD) Non-Af BUN/Creatinine Ratio Glucose Calcium POC Glucose 255 H 235 H 323 H 10/22/20 10/22/20 10/22/20 04:50 04:50 07:41 WBC 15.9 H RBC 4.13 L Hgb 11.2 L Hct 34.0 L MCV 82.3 MCH 27.1 MCHC 32.9 RDW Std Deviation 45.1 H RDW Coeff of Lashonda 15.0 H Plt Count 390 MPV 9.8 Immature Gran % (Auto) 0.800 Neut % (Auto) 88.6 H Lymph % (Auto) 4.6 L [place] % (Auto) 5.0 Eos % (Auto) 0.9 Baso % (Auto) 0.1 Absolute Neuts (auto) 14.1 H Absolute Lymphs (auto) 0.73 L Nucleated RBC % 0 Sodium 128 L Potassium 4.5 Chloride 89 L Carbon Dioxide 33.0 H Anion Gap 6 BUN 22 H Creatinine 0.84 Estim Creat Clear Calc 59.96 Est GFR (MDRD) Af Amer 88 Est GFR (MDRD) Non-Af 73 BUN/Creatinine Ratio 26.2 H Glucose 302 H Calcium 9.4 POC Glucose 313 H Micro: Microbiology 10/20/20 03:20 Nasal Secretion SARS-CoV-2 Antigen (Rapid) - Final Cardiology Labs/Tests 10/22/20 04:50: WBC 15.9 H, RBC 4.13 L, Hgb 11.2 L, Hct 34.0 L, MCV 82.3, MCH 27.1, MCHC 32.9, Plt Count 390, MPV 9.8, Immature Gran % (Auto) 0.800, Neut % (Auto) 88.6 H, Lymph % (Auto) 4.6 L, [place] % (Auto) 5.0, Eos % (Auto) 0.9, Baso % (Auto) 0.1, Absolute Neuts (auto) 14.1 H, Nucleated RBC % 0 10/22/20 04:50: Sodium 128 L, Potassium 4.5, Chloride 89 L, Carbon Dioxide 33.0 H, Anion Gap 6, BUN 22 H, Creatinine 0.84, Est GFR (MDRD) Af Amer 88, Est GFR (MDRD) Non-Af 73, BUN/Creatinine Ratio 26.2 H, Glucose 302 H, Calcium 9.4 Rhythm: Sinus rhythm EKG: Sinus rhythm; left axis deviation; anteroseptal CA of indeterminate age; T wave abnormality: Consider myocardial ischemia: Inferior lateral Radiography Diagnostic Testing: Radiology Impression Chest X-Ray 10/21/20 09:35 IMPRESSION: Improved aeration as compared to prior study. Residual vascular congestion and CHF persists. Electronically Signed: Carlos Chou MD at 9:52 EDT , Service support , Physical Exam Const alert and oriented x3 Orientation / Consciousness: awake HEENT normocephalic Eyes PERRL, EOMs intact bilaterally, conjunctivae normal and no scleral icterus Neck full ROM and supple Chest inspection of chest normal Resp Auscultation: wheezes and diminished lung sounds Cardio regular rhythm, S1 normal heart sound and S2 normal heart sound GI normal to inspection, nondistended, normoactive bowel sounds Extremity General Extremity: edema bilateral lower extremity Details: trace Skin no rashes or lesions noted Neuro oriented x3 and moves all extremities Psych mental status grossly normal Assessment & Plan Assessment/Plan (1) Cardiac dysrhythmia: PLAN: The patient has findings compatible with multiple underlying cardiac dysrhythmias. 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 The patient's cardiac dysrhythmias may be exacerbated by her underlying electrolyte related issues as well as her pulmonary issues superimposed upon her underlying chronic underlying cardiovascular issues. She has been remaining in sinus rhythm. At the present time she will continue electrolyte supplement as needed, continue her beta-lexa, and allow her IV amiodarone to be discontinued. Hopefully her cardiac rate and rhythm will remain in sinus rhythm now that her electrolytes have been supplemented and her beta-lexa has been adjusted and she will be able to remain without either IV or oral amiodarone therapy. (2) Atherosclerosis of [place] coronary artery of [place] heart without angina pectoris: PLAN: She does have a history of underlying CAD. At the moment she is not complaining of symptoms of classic angina pectoris. Her initial troponin I level was negative. Her ECG changes are noted. Her echocardiogram was reviewed. At the moment the plan is for continued conservative medical management while she undergoes her pulmonary evaluation with respect to her underlying lung carcinoma staging and therapy. Depending upon her clinical course she may need reevaluation in the cardiac catheterization laboratory at some point in time. (3) Presence of stent in coronary artery: PLAN: She has a history of previous PCI to the LAD. Her previous diagnostic cardiac catheterization is as noted. Again she will continue medical management and follow-up at this time. (4) Hyperlipidemia: QUALIFIERS: Hyperlipidemia type: unspecified Qualified Code(s): E78.5 - Hyperlipidemia, unspecified PLAN: She does need to continue risk factor evaluation care as deemed appropriate. (5) Hypertension: QUALIFIERS: Hypertension type: essential hypertension Qualified Code(s): I10 - Essential (primary) hypertension PLAN: Her blood pressure will need to be monitored as her medications were adjusted. (6) COPD exacerbation: PLAN: She is being evaluated by pulmonology/critical care medicine for COPD exacerbation. (7) Small cell lung cancer: PLAN: At the moment it appears that there is going to be another attempt to have her thoracentesis performed to assist with staging of her lung carcinoma. It appears that her port placement for chemotherapy has been temporarily placed on hold until next week. Addt'l Comments The patient's case has been discussed and reviewed with Dr. Richardson.
[2020-10-22] MEDS: FLUoxetine 20 MG Capsule 60 MG PO (09:24)
[2020-10-22] MEDS: Metoprolol Tartrate 50 MG Tablet PO ×2 (09:25→22:25)
[2020-10-22] MEDS: Pantoprazole Sodium 40 MG Tablet PO (09:25)
[2020-10-22] MEDS: Fluticasone 0.05% 1 SPRAY NASAL.SRY NASAL ×2 (09:25→22:26)
[2020-10-22] MEDS: Enoxaparin 40 MG/0.4 ML Syringe SC (09:25)
[2020-10-22] MEDS: Isosorbide Mononitrate 30 MG Tablet PO (09:25)
[2020-10-22] MEDS: Lisinopril 5 MG Tablet PO (09:26)
[2020-10-22] MEDS: Menthol/Lanolin/Calamine/Znox 113 GM Tube 1 APPLIC TOPICAL ×2 (09:36→22:27)
[2020-10-22] MEDS: Nystatin Powder 15gm Bottle 1 APPLIC TOPICAL ×2 (09:36→22:27)
--- NOTE | 2020-10-22 09:37 | CASEMGMT ---
This RN CM participated in ICU multidisciplinary rounds. Pt is currently on bipap but does switch to 6L nc at times. Amio gtt to be held today per cardiology to see what pt's heart rate does. Per Dr. Richardson, pt is appropriate for palliative referral. CM to follow. Enrrique GIRON CM
--- NOTE | 2020-10-22 10:49 | CASEMGMT ---
Dr. Acevedo is aware of Dr. Richardson recommendation for palliative and states she is agreeable to referral if pt is. This RN CM to room and pt updated on palliative, voices understanding and is agreeable to referral. Order for palliative placed/faxed and palliative updated on pt. SStaten RN CM
--- NOTE | 2020-10-22 11:32 | PN.HOSP_ITS ---
Subjective Subjective: Patient seen and examined. She thinks she is doing well today. She remains on BiPAP. She is being weaned off of amiodarone drip. She has otherwise remained hemodynamically stable. Review of systems otherwise neg ative. Discussed with her assisted living coordinator, if she is able to stay off BiPAP for prolonged period today, she is to have thoracentesis done. Objective Data Objective Data Vital Signs: Vital Signs Temp Pulse Resp BP Pulse Ox 97 F L 71 20 H 118/101 H 94 10/22/20 10:00 10/22/20 11:05 10/22/20 11:00 10/22/20 11:00 10/22/20 11:00 Oxygen Flow Rate (L/min) 6 Oxygen Delivery Method Nasal Cannula Weight: 198 lb 10.184 oz Body Mass Index (BMI) 35.9 Finger Stick Blood Glucose 177 Intake & Output: Intake and Output for Last 24 Hours 10/20/20 10/21/20 10/22/20 23:59 23:59 23:59 Intake Total 1952.36 / 1952.36 1362.06 / 1362.06 490 / 490 Output Total 800 / 800 700 / 700 1200 / 1200 Balance 1152.36 / 1152.36 662.06 / 662.06 -710 / -710 Lab / Micro Data Result Diagrams: 10/22/20 04:50 10/22/20 04:50 Labs: Laboratory Results - last 24 hr 10/21/20 10/21/20 10/21/20 12:16 16:55 22:09 WBC RBC Hgb Hct MCV MCH MCHC RDW Std Deviation RDW Coeff of Lashonda Plt Count MPV Immature Gran % (Auto) Neut % (Auto) Lymph % (Auto) [place] % (Auto) Eos % (Auto) Baso % (Auto) Absolute Neuts (auto) Absolute Lymphs (auto) Nucleated RBC % Sodium Potassium Chloride Carbon Dioxide Anion Gap BUN Creatinine Estim Creat Clear Calc Est GFR (MDRD) Af Amer Est GFR (MDRD) Non-Af BUN/Creatinine Ratio Glucose Calcium POC Glucose 255 H 235 H 323 H 10/22/20 10/22/20 10/22/20 04:50 04:50 07:41 WBC 15.9 H RBC 4.13 L Hgb 11.2 L Hct 34.0 L MCV 82.3 MCH 27.1 MCHC 32.9 RDW Std Deviation 45.1 H RDW Coeff of Lashonda 15.0 H Plt Count 390 MPV 9.8 Immature Gran % (Auto) 0.800 Neut % (Auto) 88.6 H Lymph % (Auto) 4.6 L [place] % (Auto) 5.0 Eos % (Auto) 0.9 Baso % (Auto) 0.1 Absolute Neuts (auto) 14.1 H Absolute Lymphs (auto) 0.73 L Nucleated RBC % 0 Sodium 128 L Potassium 4.5 Chloride 89 L Carbon Dioxide 33.0 H Anion Gap 6 BUN 22 H Creatinine 0.84 Estim Creat Clear Calc 59.96 Est GFR (MDRD) Af Amer 88 Est GFR (MDRD) Non-Af 73 BUN/Creatinine Ratio 26.2 H Glucose 302 H Calcium 9.4 POC Glucose 313 H Micro: Microbiology 10/20/20 03:20 Nasal Secretion SARS-CoV-2 Antigen (Rapid) - Final Physical Exam Const alert, oriented x3 and no apparent distress Constitutional Narrative: in acute respiratory distress Exam Limitations: no limitations HEENT head/scalp atraumatic and moist oral mucous membranes Eyes EOMs intact bilaterally and conjunctivae normal Neck no lymphadenopathy and supple Lymph Lymphatic: no lymphadenopathy noted Resp Resp Narrative: Diminished breath sounds bibasilarly. On BiPAP. Few crackles bilaterally. Effort and Inspection: tachypneic and labored Auscultation: diminished lung sounds Cardio S1 normal heart sound, S2 normal heart sound and no murmurs Cardio Narrative: tachycardic, in SVT Rate: tachycardic Rhythm: abnormal rhythm GI normal to inspection, nondistended, normoactive bowel sounds, soft to palpation, non-tender and non-distended Extremity normal to inspection, full ROM and normal capillary refill Skin no rashes or lesions noted and no wounds General Skin Exam: no breakdown Neuro oriented x3 and CN's II-XII intact bilaterally Sensorium / Orientation: awake and alert Psych Appearance: appropriate Mood & Affect: anxious Assessment & Plan Assessment/Plan (1) Acute and chronic respiratory failure with hypoxia: (2) PSVT (paroxysmal supraventricular tachycardia): (3) Cardiac dysrhythmia: (4) Diabetic polyneuropathy associated with type 2 diabetes mellitus: (5) Lung neoplasm: (6) Small cell lung cancer: PLAN: #Parosxymal SVT * remains on amiodarone ip. * Cardiology on board; plan is to try to wean off amiodarone drip as tolerated today * 2D echo: EF of 50% with evidence of diastolic dysfunction and hypokinesis. RVSP is 44 mmHg. * #Acute hypoxic respiratory failure * likely related to the SVT and pleural effusion. Unable to have thoracentesis done as she keeps on requiring BiPAP. * critical care on board * Now on BiPAP. to wean off BIPAP today; once she is weaned off BIPAP successfully, to have thoracentesis today. * #Lactic acidosis * resolved. * #Hypomagnesemia: * Resolved with replacement. * #Pleural effusion: * couldnt have thoracentesis due to ongoing bipap need. Pulmonology on board. * Chest x-ray today showed improved aeration as compared to prior study with residual vascular congestion and persistent CHF. * She has been diuresed with IV Lasix. #Hyponatremia: * Sodium was 126 on admission and is now 128. * This is chronic and is likely due to small cell lung cancer. * # Small cell lung cancer * recently diagnosed. * was scheduled to start chemotherapy next Monday * to follow up with oncology on outpatient basis * #COPD exacerbation * on breathing treatment with bronchodilators. * Titrate oxygen to maintain sats >90%. on BIPAP * on IV levofloxacin and IV solumedrol #CAD: s/p stents. on aspirin, atorvastatin, lisinopril and metoprolol #Type 2 diabetes mellitus with polyneuropathy * On Lantus 25 units daily. Insulin sliding scale. Checks AC at bedtime. * #GERD: On PPI #Anxiety and depression: continue current meds-xanax and buspar #Hypertension: On metoprolol and lisinopril. DVT prophylaxis: lovenox Visit Charges Inpatient E&M: 86840 [facility] Hosp L3
[2020-10-22 12:01] LABS: Bedside Glucose 404 mg/dL (70-110)
[2020-10-22] MEDS: Acetaminophen 325 MG Tablet 650 MG PO (12:45)
[2020-10-22 16:50] LABS: Bedside Glucose 278 mg/dL (70-110)
[2020-10-22] MEDS: ALPRAZolam 0.25 MG Tablet PO (22:24)
[2020-10-22] MEDS: Atorvastatin Calcium 40 MG Tablet PO (22:25)
[2020-10-22 22:40] LABS: Bedside Glucose 271 mg/dL (70-110)
[2020-10-23] VITALS (28 sets, daily range): BP systolic 124–157; BP diastolic 55–100; PULSE 61–69; RESP 16–38; TEMP 36.2–36.8; O2SAT 92–99
--- NOTE | 2020-10-23 | FLU_PTH ---
PATIENT: CAPRI CORONEL LOC: [facility] U#:[id number] AGE/SX: 60/F ROOM: [facility] RE10/20/[address]: Dr. Norma Acevedo MD : 1960 BED: 1 DIS: 10/25/2020 SPEC #: [id number] RECD: 10/26/20 07:52 STATUS: SOUT REQ #: [id number] RANJIT: 10/23/20 00:[address]: Wilfrid Richardson DEPT: CYTOLOGY RECD BY: Dutch Workman ENTERED: 10/26/20 07:53 SP TYPE: Fluid OTHR DR: DO Dr. Sarah Carrera MD Dr. Nana Yaa Koram, MD Dr. Paul Nielsen, MD Tissues: THORACIC FLUID Procedures: Special Stain Group II Surgery Specimen Level IV Cytospin Fluid Comments: @ Ordering doctor for SSII edited from to [email or web address] Blanc by SONY at 10/26/20 0943 @ Ordering doctor for SUIV edited from to [email or web address] Blanc by SONY at 10/26/20 0943 @ Ordering doctor for CYSPIN edited from to [email or web address] Blanc by SONY at 10/26/20 0943 @ Submitting doctor edited from to [email or web address] Blanc by RGOLAN at 10/26/2043 HEADER OPERATION: Ultrasound-guided thoracentesis right chest PRE-OP DIAGNOSIS: Right pleural effusion TISSUE SUBMITTED: Thoracentesis fluid for cytology DIAGNOSIS CYTOLOGY Thoracentesis fluid for cytology (cytospin and cell block): Malignant cells present derived from small cell carcinoma. See comment. SJ:killian 10/28/2020 COMMENT Immunohistochemistry ([id number]) supports the above diagnosis. Clinical correlation and appropriate follow up are necessary. This case is discussed with Dr. Wallace on 10/28/20. Please make reference to previous specimen ([id number]) EBUS, TBNA, site 10L fluid (cell block) with diagnosis of ?small cell carcinoma.? CYTOLOGY STUDY Slides are reviewed. CYTOLOGY GROSS Received is 100 ml of red cloudy fluid labeled with the patient's name and and designated per the requisition as thoracentesis. Submitted for cytology preparation including cell block. / killian 10/26/2020 TC:0 CPT: 83775, 01913
--- NOTE | 2020-10-23 | IMM_PTH ---
PATIENT: CAPRI CORONEL LOC: [facility] U#:[id number] AGE/SX: 60/F ROOM: [facility] RE10/20/[address]: Dr. Norma Acevedo MD : 1960 BED: 1 DIS: 10/25/2020 SPEC #: [id number] RECD: 10/27/20 12:40 STATUS: SOURebecca REQ #: [id number] RANJIT: 10/23/20 00:[address]: Wilfrid Richardson DEPT: IMMUNOHISTOCHEMISTRY RECD BY: Eveline Dorado ENTERED: 10/27/20 12:42 SP TYPE: IMMUNO OTHR DR: MD Dr. Norma Huff MD Dr. Paul Nielsen, MD Tissues: THORACIC FLUID Procedures: Synapto (add) CD45 (add) CD56 (add) CHROMO (add) CK20 (add) CK7 (add) CK8 (add) TTF1 (add) Pankeratin (initial) PHYSICIAN & [address] [address] SPECIMEN INFORMATION: Tissue Source: Thoracentesis fluid Clinical Info: Right pleural effusion Specimen Number: [id number] CPT code: 24659, 67374 x8 METHODOLOGY: Deparaffinized sections of prefer/formalin-fixed tissue or PAP/DQ stained slides are incubated with monoclonal/polyclonal antibodies/oligonucleotide probes. Localization is made via biotin free immunoperoxidase method. Appropriate controls are performed and reacted as expected. Results on target cell population are indicated in the following table: RESULTS: ANTIBODY / CLONE RESULT AE1-3 (AE1/AE3/PCK26) positive CK7 (OV-TL12/30) positive CK8 (66crkgP91) positive, focal weak CK20 (KS20.8) negative CD45 (RP2/18) negative CD56 (123C3.D5) positive Chromo (LK2H10) positive Synapto (polyclonal) positive TTF-1 (8G7G3/1) positive These tests were developed and their performance characteristics determined by [facility]. They may not have been cleared or approved by the U.S. Food and Drug Administration. The FDA has determined that such clearance or approval is not necessary. The above immunohistochemical/dualISH markers are ordered and reviewed by the Pathologist. INTERPRETATION: Thoracentesis fluid: Malignant cells present derived from small cell carcinoma. TIMOTHY:killian 10/28/2020
[2020-10-23] MEDS: Ipratropium 0.5 MG/2.5 ML SOLUTION INHALATION ×3 (01:50→19:27)
[2020-10-23 04:33] LABS: Absolute Lymphocyte Count 0.65 X10^3/uL (0.83-4.51); Absolute Neutrophil Count 13.6 X10^3/uL (2.0-7.7); Basophil# 0.02 X10^3/uL; Basophil% 0.1 % (0-1); Eosinophil# 0.18 X10^3/uL; Eosinophils% 1.2 % (0-5); Hemoglobin 11.7 g/dL (12.0-15.0); Lymphocyte # 0.65 X10^3/ul (0.83-4.51); Lymphocyte % 4.2 % (19-41); Mean Corp Hgb Conc 32.5 g/dL (32-36); Mean Corpuscular Hgb 26.9 pg (27.0-32.0); Mean Corpuscular Volume 82.8 fL (81-99); Mean Platelet Vol. 9.6 fl (6.2-12.0); Monocyte# 0.69 X10^3/uL; Monocyte% 4.5 % (0-10); NRBC Flagged by Analyzer 0 % (0-5); Neutrophil # 13.63 X10^3/uL (2.7-7.7); Neutrophil % 88.7 % (47-70); POSITIVE MORPHOLOGY YES; Platelet Count 409 K/mm3 (150-450); RBC Distribution Width CV 14.9 % (11.6-14.6); RBC Distribution Width SD 45.1 fl (35.1-43.9); Red Blood Count 4.35 M/mm3 (4.2-5.4); White Blood Count 15.4 K/mm3 (4.4-11.0)
[2020-10-23 04:34] LABS: Differential Indicated SCAN CRITERIA MET
[2020-10-23 04:46] LABS: Anion Gap 8 (5-15); BUN 28 mg/dL (7-18); Calcium,Total 9.1 mg/dL (8.5-10.1); Chloride 89 mmol/L (98-107); EST Glomerular Filtration Rate 67 mL/min (>60); Est Glom Filt Rate - Afr Amer 81 mL/min (>60); Estimated Creatinine Clearance 55.97 ml/min; Glucose 320 mg/dL (74-106); Potassium 4.5 mmol/L (3.5-5.1); Sodium Level 129 mmol/L (136-145)
--- NOTE | 2020-10-23 05:55 | RAD_ITS ---
STUDY: X-RAY CHEST REASON FOR EXAM: Female, 60 years old. Respiratory failure TECHNIQUE: Single AP portable view of the chest. COMPARISON: Comparison is made with prior study dated 10/21/2020. FINDINGS: EKG electrodes are seen. Since prior study, there is an increase in the pleural parenchymal changes at the right lung base. Stable appearance of the left lung. Persistent vascular congestion. Normal size heart. Normal mediastinum and melinda. Normal visualized pulmonary arteries. There is atherosclerotic calcification of the aortic arch with tortuosity. Normal visualized thoracic spine. Normal visualized ribs, clavicles, and shoulders. There is no demonstrated abnormality of the visualized soft tissue structures of the upper abdomen. RAD/Chest 1 View (Portable) IMPRESSION: Mild progression of the pleural parenchymal changes at the right lung base superimposed on mild CHF. Electronically Signed: Carlos Chou MD at 9:17 EDT , Service support ,
[2020-10-23] MEDS: busPIRone 5 MG Tablet 10 MG PO ×3 (06:38→21:10)
--- NOTE | 2020-10-23 07:07 | PN.CC_ITS ---
Subjective Subjective: The patient was seen and examined at the bedside this morning. Events from the last 24 hours have been reviewed. The patient is currently afebrile, hemodynamically stable and maintaining appropriate oxygen saturations on 3 L/min via nasal cannula. The patient was able to be weaned from continuous BiPAP support and has done well overnight. Her anxiety appears to be controlled at the current time. The patient is currently documented to be overall net -1 L for the hospital admission. Objective Data Objective Data The patient's most recent lab work, culture data and imaging studies have all been personally reviewed. Surface echocardiogram revealed normal LV size with an ejection fraction of 50% and mild segmental systolic dysfunction. Right ventricular systolic pressure was estimated to be 44 mmHg. Rapid coronavirus antigen testing was negative. Vital Signs: Vital Signs Temp Pulse Resp BP Pulse Ox 97.9 F 65 21 H 130/77 H 95 10/23/20 04:00 10/23/20 06:00 10/23/20 06:00 10/23/20 06:00 10/23/20 06:00 Oxygen Flow Rate (L/min) 3 Oxygen Delivery Method Nasal Cannula Weight: 193 lb 9.054 oz Body Mass Index (BMI) 35.9 Finger Stick Blood Glucose 177 Intake & Output: Intake and Output for Last 24 Hours 10/21/20 10/22/20 10/23/20 23:59 23:59 23:59 Intake Total 1362.06 / 1362.06 1390 / 1390 240 / 240 Output Total 700 / 700 2800 / 3600 1600 / 1600 Balance 662.06 / 662.06 -1410 / -2210 -1360 / -1360 Lab / Micro Data Attestation: I reviewed the patient's lab results. Result Diagrams: 10/23/20 04:25 10/23/20 04:25 Labs: Laboratory Results - last 24 hr 10/22/20 10/22/20 10/22/20 07:41 11:50 16:43 WBC RBC Hgb Hct MCV MCH MCHC RDW Std Deviation RDW Coeff of Lashonda Plt Count MPV Immature Gran % (Auto) Neut % (Auto) Lymph % (Auto) [place] % (Auto) Eos % (Auto) Baso % (Auto) Absolute Neuts (auto) Absolute Lymphs (auto) Nucleated RBC % Sodium Potassium Chloride Carbon Dioxide Anion Gap BUN Creatinine Estim Creat Clear Calc Est GFR (MDRD) Af Amer Est GFR (MDRD) Non-Af BUN/Creatinine Ratio Glucose Calcium POC Glucose 313 H 404 H 278 H 10/22/20 10/23/20 10/23/20 22:23 04:25 04:25 WBC 15.4 H RBC 4.35 Hgb 11.7 L Hct 36.0 L MCV 82.8 MCH 26.9 L MCHC 32.5 RDW Std Deviation 45.1 H RDW Coeff of Lashonda 14.9 H Plt Count 409 MPV 9.6 Immature Gran % (Auto) 1.300 H Neut % (Auto) 88.7 H Lymph % (Auto) 4.[address] [place] % (Auto) 4.5 Eos % (Auto) 1.2 Baso % (Auto) 0.1 Absolute Neuts (auto) 13.6 H Absolute Lymphs (auto) 0.65 L Nucleated RBC % 0 Sodium 129 L Potassium 4.5 Chloride 89 L Carbon Dioxide 32.0 Anion Gap 8 BUN 28 H Creatinine 0.90 Estim Creat Clear Calc 55.97 Est GFR (MDRD) Af Amer 81 Est GFR (MDRD) Non-Af 67 BUN/Creatinine Ratio 31.0 H Glucose 320 H Calcium 9.1 POC Glucose 271 H Micro: Microbiology 10/20/20 03:20 Nasal Secretion SARS-CoV-2 Antigen (Rapid) - Final Physical Exam Const alert and no apparent distress General Appearance: cooperative HEENT normocephalic and head/scalp atraumatic Eyes PERRL and EOMs intact bilaterally Resp normal respiratory effort Effort and Inspection: able to speak in complete sentences Auscultation: diminished lung sounds; Negative for rales, rhonchi or wheezes Cardio regular rate, regular rhythm, S1 normal heart sound and S2 normal heart sound Rate: tachycardic Rhythm: abnormal rhythm GI normal to inspection, nondistended, normoactive bowel sounds Extremity no clubbing, cyanosis or edema Skin no rashes or lesions noted Neuro oriented x3, CN's II-XII intact bilaterally and moves all extremities Psych cooperative and affect normal Appearance: well kempt Assessment & Plan Assessment/Plan (1) Acute and chronic respiratory failure with hypoxia: (2) PSVT (paroxysmal supraventricular tachycardia): PLAN: RECOMMENDATIONS: 1. Continue to wean supplemental oxygen to maintain saturations at or above 90%. 2. Obtain repeat x-ray this morning. If pleural effusion is still present, will proceed with thoracentesis. 3. Continue scheduled Atrovent. 4. Continue empiric antimicrobials and IV steroids. 5. Continue anxiolytics as ordered. 6. Encourage incentive spirometer use and mobilize patient as tolerated. 7. The patient is medically stable for transfer out of the intensive care unit. IMPRESSIONS: 1. Acute on chronic hypoxemic respiratory failure/COPD with exacerbation The patient has a presumptive history of COPD of unknown severity, as she has not yet completed pulmonary function studies. Unclear precipitating etiology for her exacerbation. The patient does have a history of heart failure with preserved ejection fraction as well, which may also have been contributing to her presenting symptoms, as she did appear to respond to IV diuretic therapy. For now, the patient will be continued on bronchodilators and IV steroids. Given her recent tachyarrhythmia issues, the patient will be continued on scheduled Atrovent. Supplemental oxygen will be weaned to maintain saturations at or above 90%. 2. Recent diagnosis of small cell lung cancer/unspecified pleural effusion The patient was recently diagnosed with what is suspected to be limited stage small cell lung cancer. Plan to repeat chest x-ray this morning and if pleural effusion is still present, will obtain thoracentesis and send pleural fluid for cytology. The patient is currently scheduled for chest port placement next week. 3. History of coronary artery disease/PSVT The patient has a known history of coronary artery disease and has been experiencing significant tachy-arrhythmias. The patient's underlying arrhythmias have improved with aggressive electrolyte repletion and amiodarone. Cardiology is currently following to assist with medical management. 4. Diabetes mellitus/depression/anxiety/hypertension/GERD Complicates care, management, recovery and prognosis. Continue sliding scale coverage and Lantus. This note was generated with [employer]argoGuard[employer] software. It may contain incorrect words, spelling, and punctuation that were not noted in checking the note before signing. Visit Charges Inpatient E&M: 10469 [facility] Hosp L3
--- NOTE | 2020-10-23 07:08 | US_ITS ---
PROCEDURE: ULTRASOUND GUIDED THORACENTESIS. DATE: 10/23/2020.. INDICATION: Female, 60 years old. Right pleural effusion. PHYSICIAN: Carlos Chou M.D. PROCEDURE: The risks, benefits, and alternatives to the procedure were explained to the patient. The specific risks of bleeding, infection, and pneumothorax requiring chest tube insertion were discussed and accepted. Written informed consent was obtained. Ultrasonographic evaluation of the right lower pleural space was carried out. An adequate pocket was identified. The patient was placed in the sitting, upright position. The overlying skin was prepped and draped in sterile fashion. 1% lidocaine was administered subcutaneously for local anesthesia. Under ultrasound guidance, a 5 [place] thoracentesis needle/catheter system was advanced into the right posterior lower pleural fluid collection. Approximately 450 mL of blood tinged fluid was drained. The catheter was removed, and a sterile dressing was applied. A specimen was collected and sent to the laboratory for analysis, as requested by the referring clinician. The patient tolerated the procedure well. A chest x-ray was ordered. US/Thoracentesis W US IMPRESSION: Ultrasound-guided right thoracentesis. Electronically Signed: Carlos Chou MD at 14:48 EDT , Service support ,
[2020-10-23] MEDS: Insulin Lispro 100 UNIT/ML INSULN.PEN SC ×4 (07:59→21:09)
[2020-10-23] MEDS: 0.9% Saline Lock 10 ML Syringe IV (08:00)
[2020-10-23 08:11] LABS: Bedside Glucose 318 mg/dL (70-110)
[2020-10-23 08:14] LABS: International Normalized Ratio 1.1; Prothrombin Time (Protime)PT. 13.2 SECONDS (11.7-14.9)
[2020-10-23 08:16] LABS: ALB/GLOB Ratio 0.9 RATIO (0.9-2.4); Globulin 3.8 g/dL (2.2-4.2); LDH 243 U/L (84-246); Protein, Total 7.2 g/dL (6.4-8.2)
[2020-10-23] MEDS: Menthol/Lanolin/Calamine/Znox 113 GM Tube 1 APPLIC TOPICAL (09:25)
[2020-10-23] MEDS: Fluticasone 0.05% 1 SPRAY NASAL.SRY NASAL ×2 (09:26→21:10)
[2020-10-23] MEDS: Isosorbide Mononitrate 30 MG Tablet PO (09:27)
[2020-10-23] MEDS: Metoprolol Tartrate 50 MG Tablet PO ×2 (09:27→21:11)
[2020-10-23] MEDS: Nystatin Powder 15gm Bottle 1 APPLIC TOPICAL ×2 (09:28→21:11)
[2020-10-23] MEDS: Lisinopril 5 MG Tablet PO (09:28)
[2020-10-23] MEDS: FLUoxetine 20 MG Capsule 60 MG PO (09:28)
[2020-10-23] MEDS: Pantoprazole Sodium 40 MG Tablet PO (09:29)
[2020-10-23 11:30] LABS: Bedside Glucose 305 mg/dL (70-110)
--- NOTE | 2020-10-23 12:43 | PN.HOSP_ITS ---
Subjective Subjective: Patient seen and examined. She feels much better today and has no complaints. She is now on 3L of oxygen by nasal canula. Review of systems otherwise negative. Objective Data Objective Data Vital Signs: Vital Signs Temp Pulse Resp BP Pulse Ox 97.5 F L 63 17 134/77 H 95 10/23/20 12:00 10/23/20 12:00 10/23/20 12:00 10/23/20 12:00 10/23/20 12:00 Oxygen Flow Rate (L/min) 3 Oxygen Delivery Method Nasal Cannula Weight: 193 lb 9.054 oz Body Mass Index (BMI) 35.9 Finger Stick Blood Glucose 177 Intake & Output: Intake and Output for Last 24 Hours 10/21/20 10/22/20 10/23/20 23:59 23:59 23:59 Intake Total 1362.06 / 1362.06 1390 / 1390 410 / 410 Output Total 700 / 700 2800 / 3600 2550 / 2550 Balance 662.06 / 662.06 -1410 / -2210 -2140 / -2140 Lab / Micro Data Result Diagrams: 10/23/20 04:25 10/23/20 04:25 Labs: Laboratory Results - last 24 hr 10/22/20 10/22/20 10/23/20 16:43 22:23 04:25 WBC 15.4 H RBC 4.35 Hgb 11.7 L Hct 36.0 L MCV 82.8 MCH 26.9 L MCHC 32.5 RDW Std Deviation 45.1 H RDW Coeff of Lashonda 14.9 H Plt Count 409 MPV 9.6 Immature Gran % (Auto) 1.300 H Neut % (Auto) 88.7 H Lymph % (Auto) 4.2 L [place] % (Auto) 4.5 Eos % (Auto) 1.2 Baso % (Auto) 0.1 Absolute Neuts (auto) 13.6 H Absolute Lymphs (auto) 0.65 L Nucleated RBC % 0 PT INR Sodium Potassium Chloride Carbon Dioxide Anion Gap BUN Creatinine Estim Creat Clear Calc Est GFR (MDRD) Af Amer Est GFR (MDRD) Non-Af BUN/Creatinine Ratio Glucose Calcium Lactate Dehydrogenase Total Protein Globulin Albumin/Globulin Ratio POC Glucose 278 H 271 H 10/23/20 10/23/20 10/23/20 04:25 07:55 07:55 WBC RBC Hgb Hct MCV MCH MCHC RDW Std Deviation RDW Coeff of Lashonda Plt Count MPV Immature Gran % (Auto) Neut % (Auto) Lymph % (Auto) [place] % (Auto) Eos % (Auto) Baso % (Auto) Absolute Neuts (auto) Absolute Lymphs (auto) Nucleated RBC % PT 13.2 INR 1.1 Sodium 129 L Potassium 4.5 Chloride 89 L Carbon Dioxide 32.0 Anion Gap 8 BUN 28 H Creatinine 0.90 Estim Creat Clear Calc 55.97 Est GFR (MDRD) Af Amer 81 Est GFR (MDRD) Non-Af 67 BUN/Creatinine Ratio 31.0 H Glucose 320 H Calcium 9.1 Lactate Dehydrogenase 243 Total Protein 7.2 Globulin 3.8 Albumin/Globulin Ratio 0.9 POC Glucose 10/23/20 10/23/20 07:58 11:24 WBC RBC Hgb Hct MCV MCH MCHC RDW Std Deviation RDW Coeff of Lashonda Plt Count MPV Immature Gran % (Auto) Neut % (Auto) Lymph % (Auto) [place] % (Auto) Eos % (Auto) Baso % (Auto) Absolute Neuts (auto) Absolute Lymphs (auto) Nucleated RBC % PT INR Sodium Potassium Chloride Carbon Dioxide Anion Gap BUN Creatinine Estim Creat Clear Calc Est GFR (MDRD) Af Amer Est GFR (MDRD) Non-Af BUN/Creatinine Ratio Glucose Calcium Lactate Dehydrogenase Total Protein Globulin Albumin/Globulin Ratio POC Glucose 318 H 305 H Micro: Microbiology 10/20/20 03:20 Nasal Secretion SARS-CoV-2 Antigen (Rapid) - Final Radiography Diagnostic Testing: Radiology Impression Chest X-Ray 10/23/20 05:55 IMPRESSION: Mild progression of the pleural parenchymal changes at the right lung base superimposed on mild CHF. Electronically Signed: Carlos Chou MD at 9:17 EDT , Service support , Physical Exam Const alert, oriented x3 and no apparent distress Constitutional Narrative: in acute respiratory distress Exam Limitations: no limitations HEENT head/scalp atraumatic and moist oral mucous membranes Eyes EOMs intact bilaterally and conjunctivae normal Neck no lymphadenopathy and supple Lymph Lymphatic: no lymphadenopathy noted Resp Resp Narrative: Diminished breath sounds bibasilarly. on 2L of oxygen by nasal canula Effort and Inspection: tachypneic and labored Auscultation: diminished lung sounds Cardio S1 normal heart sound, S2 normal heart sound and no murmurs Cardio Narrative: tachycardic, in SVT Rate: tachycardic Rhythm: abnormal rhythm GI normal to inspection, nondistended, normoactive bowel sounds, soft to palpation, non-tender and non-distended Extremity normal to inspection, full ROM and normal capillary refill Skin no rashes or lesions noted and no wounds General Skin Exam: no breakdown Neuro oriented x3 and CN's II-XII intact bilaterally Sensorium / Orientation: awake and alert Psych affect normal Appearance: appropriate Mood & Affect: anxious Assessment & Plan Assessment/Plan (1) Acute and chronic respiratory failure with hypoxia: (2) PSVT (paroxysmal supraventricular tachycardia): (3) Cardiac dysrhythmia: (4) Diabetic polyneuropathy associated with type 2 diabetes mellitus: (5) Lung neoplasm: (6) Small cell lung cancer: PLAN: #Parosxymal SVT * off amiodarone drip. * Cardiology on board * 2D echo: EF of 50% with evidence of diastolic dysfunction and hypokinesis. RVSP is 44 mmHg. * on PO metoprolol 50mg bid. * #Acute hypoxic respiratory failure * likely related to the SVT and pleural effusion. * weaned off BIPAP, and now on 3L of oxygen by nasal canula * critical care on board * to have thoracentesis today. * #Lactic acidosis * resolved. * #Hypomagnesemia: * Resolved with replacement. * #Pleural effusion: * for thoracentesis today * CXR today showed mild progression of the pleural parenchymal changes at the right lung base and superimposed mild CHF * on IV lasix * #Hyponatremia: * Sodium is 129 today * This is chronic and is likely due to small cell lung cancer. * # Small cell lung cancer * recently diagnosed. * yet to start treatment * to follow up with oncology on outpatient basis * #COPD exacerbation * on breathing treatment with bronchodilators. * Titrate oxygen to maintain sats >90%. on BIPAP * on on IV solumedrol. IV levofloxacin switched to IV ceftriaxone. #CAD: s/p stents. on aspirin, atorvastatin, lisinopril and metoprolol #Type 2 diabetes mellitus with polyneuropathy * On Lantus 25 units daily. Insulin sliding scale. Checks AC at bedtime. * #GERD: On PPI #Anxiety and depression: on xanax and buspar #Hypertension: On metoprolol and lisinopril. DVT prophylaxis: lovenox Visit Charges Inpatient E&M: 12978 [facility] Hosp L3
--- NOTE | 2020-10-23 13:40 | RAD_ITS ---
STUDY: X-RAY CHEST REASON FOR EXAM: Female, 60 years old. Pneumothorax -- immediately post thoracentesis TECHNIQUE: AP inspiration and expiration views. COMPARISON: Comparison is made with prior study dated 10/23/2020 at 5:48 AM. FINDINGS: The patient is status post right thoracentesis. There is no evidence of pneumothorax. Persistent increased markings at the lung bases suggestive of atelectasis. RAD/Chest Insp/Exp 2 View IMPRESSION: Status post right thoracentesis. There is no evidence of pneumothorax. Electronically Signed: Carlos Chou MD at 14:22 EDT , Service support ,
--- NOTE | 2020-10-23 13:45 | NURSING ---
Patient off floor with radiology transcriptionist for thoracentesis
--- NOTE | 2020-10-23 13:46 | CASEMGMT ---
Pt has been on 3L nc, which is her home dose of oxygen, since yesterday afternoon. Pt also to have thoracentesis this afternoon. Enrrique GIRON CM
[2020-10-23 14:30] LABS: Cytology, Body Fluid / CSF SEE PATHOLOGY REPORT
[2020-10-23] MEDS: Acetaminophen 325 MG Tablet 650 MG PO ×2 (14:36→21:16)
[2020-10-23] MEDS: Aspirin 325 MG Tablet PO (14:36)
[2020-10-23 15:22] LABS: Glucose, Body Fluid 308 mg/dL (40-70); LDH,Body Fluid 97 Units/l (Not Establ.); Protein, Body Fluid 2.7 g/dL (Not Establ.)
--- NOTE | 2020-10-23 15:22 | CON.PCM_ITS ---
Assessment & Plan Assessment/Plan (1) Shortness of breath: (2) Small cell lung cancer, right middle lobe: (3) Acute and chronic respiratory failure with hypoxia: (4) PSVT (paroxysmal supraventricular tachycardia): (5) Diabetic polyneuropathy associated with type 2 diabetes mellitus: (6) Mediastinal mass: (7) COPD (chronic obstructive pulmonary disease): QUALIFIERS: COPD type: unspecified COPD Qualified Code(s): J44.9 - Chronic obstructive pulmonary disease, unspecified (8) Anxiety and depression: (9) Pleural effusion, right: PLAN: 60-year-old female with newly diagnosed small cell lung cancer, hospitalized with acute on chronic hypoxic respiratory failure and PSVT, seen today for initial palliative care consultation for shortness of breath and due to the cancer diagnosis. -Patient to start radiation and chemo soon, following closely with oncology Dr. Gaspar. -Shortness of breath has significantly improved since thoracentesis today, she is stable on 3 L of oxygen. Await cytology. COPD not in exacerbation at this point. Anticipate discharge within a few days. ?Has anxiety and depression, which has improved since her shortness of breath improved. Continue home meds. 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 Questions were asked and answered Thank you for the opportunity to participate in this patient's care, please do not hesitate to contact [facility] with any further questions or concerns. Palliative direct line is [phone]. The patient has requested she contact us if she decides she wants to hear more about services or sign up f or palliative. She has our contact information. Greater than 50% of F2F visit dedicated to education and counseling of palliative care services, medications, comorbid conditions and potential assist ance with management, and plan of care moving forward. Start time: 1522 End time: 1606 HPI Consult Data Date of Consult: 10/23/20 HPI Narrative HPI Narrative: CAPRI CORONEL, is a 60 F, PMH as below, who presented to [facility] ED with complaints of acute shortness of breath and a pulse ox of 50% and respiratory rate of 40. Patient was placed on BiPAP and developed paroxysmal SVT. She was treated with IV amiodarone and admitted to the intensive care unit for further evaluation and management of her acute hypoxic respiratory failure and PSVT. Cardiology was consulted for management of PSVT. Patient has a new diagnosis of lung cancer. Patient was seen by pulmonary medicine of [place] 09/07/2020, who recommended endobronchial ultrasound guided biopsy. Also placed her on Augmentin and prednisone taper for COPD exacerbation at that time. Patient is in the midst of work-up for her probable lung cancer. She had a bronchoscopy 09/11/2020, which had findings suspicious for small cell carcinoma in the left hilar region. Patient was sent to Dr. Gaspar, oncology, who she saw 09/17/2020. Pathology showed small cell lung cancer and mediastinal nodes. Staging had been scheduled with the brain MRI and PET/CT before deciding appropriate treatment. She was started on sodium chloride for hyponatremia. Patient is currently on Symbicort. She has a follow-up with Dr. Pretty November 02. She underwent diagnostic thoracentesis today to rule out malignant effusion and has been weaned to 3 L per nasal cannula, which is her baseline in the last few months. If she has no complications from the thoracentesis, she will be transferred to the progressive care unit today. Nursing reports significant anxiety and depression, the patient is on Xanax and BuSpar at baseline. She has significant shortness of breath. Severity of COPD is unknown, she has yet to complete pulmonary function studies. She also has an element of CHF. There are plans for port placement prior to discharge home. She remains on empiric antibiotics. [facility] Medical History (Updated 10/23/20 @ 16:02 by Lily Coker NP-Rhian[place]) Abnormal cardiovascular stress test Angina pectoris Anxiety Atherosclerosis of [place] coronary artery of [place] heart without angina pectoris Cancer Carcinoma, lung Cardiac dysrhythmia COPD (chronic obstructive pulmonary disease) Coronary artery disease Depression DVT (deep venous thrombosis) Edema Former smoker GERD (gastroesophageal reflux disease) Hiatal hernia History of fatty infiltration of liver Hyperlipidemia Hypertension Injury of head and neck Loose, teeth Myocardial infarct Oxygen dependent Presence of stent in coronary artery (~05/2011) Restless legs Shortness of breath on exertion Syncope Type II diabetes mellitus Home Medications nitroglycerin 0.4 mg SL Q5M PRN 07/03/13 [History Last Taken 06/19/12 0.4] albuterol sulfate 2 puff INHALATION Q4H PRN PRN 11/20/19 [History Last Taken 11/20/19] buspirone 5 mg PO TID 11/20/19 [History Last Taken 09/11/20 07:00 5 MG] dicyclomine 10 - 20 mg PO TID PRN PRN 11/20/19 [History Last Taken 11/20/19] metformin 1,000 mg PO BID 11/20/19 [History Last Taken 11/20/19] pantoprazole 40 mg PO DAILY 11/20/19 [History Last Taken 11/20/19] atorvastatin 40 mg tablet 40 mg PO QHS #90 tablet 12/23/19 [Rx Last Taken Unknown] budesonide-formoterol HFA 160 mcg-4.5 mcg/actuation aerosol inhaler 2 puff INHALATION BID 03/09/20 [History Last Taken Unknown] meclizine 25 mg tablet 25 mg PO DAILY PRN 03/09/20 [History Last Taken Unknown] insulin glargine 25 unit SC QAM 07/24/20 [History Last Taken Unknown] dulaglutide 1.5 mg SC TH 09/08/20 [History Last Taken Unknown] alprazolam 0.5 mg tablet 0.25 mg PO QHS PRN PRN tablet 09/14/20 [History Last Taken Unknown] lisinopril 5 mg tablet 5 mg PO DAILY #90 tablet 10/05/20 [Rx Last Taken Unknown] lidocaine-prilocaine 2.5 %-2.5 % topical cream 1 applic TOPICAL ONCE PRN 30 Days #30 g 10/19/20 [Rx Last Taken Unknown] ondansetron 8 mg disintegrating tablet 8 mg PO Q8H PRN #30 tab 10/19/20 [Rx Last Taken Unknown] prochlorperazine maleate 10 mg tablet 10 mg PO Q6H PRN #30 tab 10/19/20 [Rx Last Taken Unknown] dulaglutide [Trulicity] 1.5 mg SUBCUT QWEEK 10/20/20 [History Last Taken Unknown] fluoxetine 60 mg PO DAILY 10/20/20 [History Last Taken Unknown] insulin aspart U-100 [Novolog Flexpen U-100 Insulin] 20 unit SC TID 10/20/20 [History Last Taken Unknown] metoprolol tartrate 25 mg PO BID 10/20/20 [History Last Taken Unknown] sodium chloride 1 g PO DAILY 10/20/20 [History Last Taken Unknown] Allergy/AdvReac Type Severity Reaction Status Date / Time No Known Allergies Allergy Verified 10/20/20 02:32 Family History Father , Age 56 Myocardial infarction Heart disease COPD (chronic obstructive pulmonary disease) Mother COPD (chronic obstructive pulmonary disease) Heart disease Surgical History H/O arthroscopic knee surgery H/O elbow surgery History of carpal tunnel surgery History of cholecystectomy History of lumbar surgery History of tubal ligation Hx of biopsy Presence of coronary angioplasty implant and graft Social History household members: spouse housing: house current occupational status: retired Smoking Status: Former smoker quit date: 06/19/13 pack-years: 35 Tobacco: How many years used: 37 how long ago did patient quit smokin years ago second hand exposure: No alcohol intake: never substance use type: does not use caffeine: Yes Type: carbonated beverages Number of servings: 2 and coffee Number of servings: 2 eating out: 1-3 times/week during the past year weight has: increased > 10 lbs lizette/sabianism: Alevism seatbelt use: always do you feel safe at home: Yes ROS Constitutional Constitutional: Reports fatigue and weakness Eyes Eyes: Denies change in vision ENT HEENT: Denies dysphagia, sinus pain or sore throat Cardiovascular Cardiovascular: Reports edema; Denies chest pain or palpitations Respiratory/Chest Respiratory/Chest: Reports cough and shortness of breath with exertion; Denies shortness of breath at rest Gastrointestinal Gastrointestinal: Denies abdominal pain, constipation, diarrhea, nausea or vomiting Genitourinary Genitourinary: Denies dysuria or urinary incontinence Musculoskeletal Musculoskeletal: Denies back pain Neurologic Neurologic: Reports numbness and tingling; Denies abnormal gait, focal weakness or tremor(s) Psychiatric Psychiatric: Reports anxiety and depression Hematologic/Lymphatic Hematologic/Lymphatic: Denies anemia Physical Exam Const alert, oriented x3 and no apparent distress General Appearance: cooperative HEENT normocephalic and head/scalp atraumatic Neck supple General: trachea midline Resp normal respiratory effort Auscultation: diminished lung sounds GI soft to palpation and non-tender Inspection: abdominal distention Extremity no clubbing, cyanosis or edema Neuro CN's II-XII intact bilaterally Psych affect normal Appearance: appropriate Lab / Micro Data Result Diagrams: 10/23/20 04:25 10/23/20 04:25 Labs: Laboratory Results - last 24 hr 10/22/20 10/22/20 10/23/20 16:43 22:23 04:25 WBC 15.4 H RBC 4.35 Hgb 11.7 L Hct 36.0 L MCV 82.8 MCH 26.9 L MCHC 32.5 RDW Std Deviation 45.1 H RDW Coeff of [place] 14.9 H Plt Count 409 MPV 9.6 Immature Gran % (Auto) 1.300 H Neut % (Auto) 88.7 H Lymph % (Auto) 4.2 L Morgan % (Auto) 4.5 Eos % (Auto) 1.2 Baso % (Auto) 0.1 Absolute Neuts (auto) 13.6 H Absolute Lymphs (auto) 0.65 L Nucleated RBC % 0 PT INR Sodium Potassium Chloride Carbon Dioxide Anion Gap BUN Creatinine Estim Creat Clear Calc Est GFR (MDRD) Af Amer Est GFR (MDRD) Non-Af BUN/Creatinine Ratio Glucose Calcium Lactate Dehydrogenase Total Protein Globulin Albumin/Globulin Ratio POC Glucose 278 H 271 H 10/23/20 10/23/20 10/23/20 04:25 07:55 07:55 WBC RBC Hgb Hct MCV MCH MCHC RDW Std Deviation RDW Coeff of [place] Plt Count MPV Immature Gran % (Auto) Neut % (Auto) Lymph % (Auto) Morgan % (Auto) Eos % (Auto) Baso % (Auto) Absolute Neuts (auto) Absolute Lymphs (auto) Nucleated RBC % PT 13.2 INR 1.1 Sodium 129 L Potassium 4.5 Chloride 89 L Carbon Dioxide 32.0 Anion Gap 8 BUN 28 H Creatinine 0.90 Estim Creat Clear Calc 55.97 Est GFR (MDRD) Af Amer 81 Est GFR (MDRD) Non-Af 67 BUN/Creatinine Ratio 31.0 H Glucose 320 H Calcium 9.1 Lactate Dehydrogenase 243 Total Protein 7.2 Globulin 3.8 Albumin/Globulin Ratio 0.9 POC Glucose 10/23/20 10/23/20 07:58 11:24 WBC RBC Hgb Hct MCV MCH MCHC RDW Std Deviation RDW Coeff of [place] Plt Count MPV Immature Gran % (Auto) Neut % (Auto) Lymph % (Auto) Morgan % (Auto) Eos % (Auto) Baso % (Auto) Absolute Neuts (auto) Absolute Lymphs (auto) Nucleated RBC % PT INR Sodium Potassium Chloride Carbon Dioxide Anion Gap BUN Creatinine Estim Creat Clear Calc Est GFR (MDRD) Af Amer Est GFR (MDRD) Non-Af BUN/Creatinine Ratio Glucose Calcium Lactate Dehydrogenase Total Protein Globulin Albumin/Globulin Ratio POC Glucose 318 H 305 H Radiology Impression Chest X-Ray 10/23/20 05:55 IMPRESSION: Mild progression of the pleural parenchymal changes at the right lung base superimposed on mild CHF. Electronically Signed: Carlos Chou MD at 9:17 EDT , Service support , Thoracentesis Ultrasound 10/23/20 07:08 IMPRESSION: Ultrasound-guided right thoracentesis. Electronically Signed: Carlos Chou MD at 14:48 EDT , Service support , Chest X-Ray 10/23/20 13:40 IMPRESSION: Status post right thoracentesis. There is no evidence of pneumothorax. Electronically Signed: Carlos Chou MD at 14:22 EDT , Service support ,
[2020-10-23 15:26] LABS: Body Fluid Mononuclear WBC # 0.565 10^3/uL; Body Fluid Mononuclear WBC % 97.6 %; Body Fluid Polynuclear WBC # 0.014 10^3/uL; Body Fluid Polynuclear WBC % 2.4 %; Body Fluid Total Cells Counted 0.649 10^3/ul; White Blood Count/Body Fluid 0.579 10^3/uL
[2020-10-23 16:30] LABS: Bedside Glucose 294 mg/dL (70-110)
[2020-10-23 16:58] LABS: Lymphocytes 77 %; Macrophages 6 %; Monocytes 12 %
[2020-10-23 16:59] LABS: Appearance/Body Fluid CLOUDY; Auto B Fluid Analyzer BKGD Ct COUNTS W/IN LIMITS (W/IN LIMITS); Color/Body Fluid RED; Mesothelial Cells 5 %; Source- Body Fluid THORACENTESIS
[2020-10-23 17:00] LABS: Body Fluid QC Type(s) BF1Q
--- NOTE | 2020-10-23 17:39 | PCM.PN.CARD ---
Subjective Subjective: The patient was examined earlier this a.m. She had been up and out of bed. She was without her BiPAP device. She stated overall she was feeling somewhat better. Objective Data Vital Signs: Vital Signs Temp Pulse Resp BP Pulse Ox 97.2 F L 62 16 153/93 H 96 10/23/20 16:00 10/23/20 16:00 10/23/20 16:00 10/23/20 16:00 10/23/20 16:00 Oxygen Flow Rate (L/min) [3] 3 Oxygen Flow Rate (L/min) [2] 3 Oxygen Flow Rate (L/min) [1 ( 3 Initial Baseline)] Oxygen Flow Rate (L/min) 3 Oxygen Delivery Method [3] Nasal Cannula Oxygen Delivery Method [2] Nasal Cannula Oxygen Delivery Method [1 ( Nasal Cannula Initial Baseline)] Oxygen Delivery Method Nasal Cannula Weight: 193 lb 9.054 oz Body Mass Index (BMI) 35.9 Finger Stick Blood Glucose 177 Intake & Output: Intake and Output for Last 24 Hours 10/21/20 10/22/20 10/23/20 23:59 23:59 23:59 Intake Total 1362.06 / 1362.06 1390 / 1390 590 / 590 Output Total 700 / 700 2800 / 3600 3300 / 3300 Balance 662.06 / 662.06 -1410 / -2210 -2710 / -2710 Lab / Micro Data Result Diagrams: 10/23/20 04:25 10/23/20 04:25 Labs: Laboratory Results - last 24 hr 10/22/20 10/23/20 10/23/20 22:23 04:25 04:25 WBC 15.4 H RBC 4.35 Hgb 11.7 L Hct 36.0 L MCV 82.8 MCH 26.9 L MCHC 32.5 RDW Std Deviation 45.1 H RDW Coeff of [place] 14.9 H Plt Count 409 MPV 9.6 Immature Gran % (Auto) 1.300 H Neut % (Auto) 88.7 H Lymph % (Auto) 4.2 L Reagan % (Auto) 4.5 Eos % (Auto) 1.2 Baso % (Auto) 0.1 Absolute Neuts (auto) 13.6 H Absolute Lymphs (auto) 0.65 L Nucleated RBC % 0 PT INR Sodium 129 L Potassium 4.5 Chloride 89 L Carbon Dioxide 32.0 Anion Gap 8 BUN 28 H Creatinine 0.90 Estim Creat Clear Calc 55.97 Est GFR (MDRD) Af Amer 81 Est GFR (MDRD) Non-Af 67 BUN/Creatinine Ratio 31.0 H Glucose 320 H Calcium 9.1 Lactate Dehydrogenase Total Protein Globulin Albumin/Globulin Ratio Fluid Source Fluid Color Fluid Appearance Fluid WBC Fluid RBC Fluid Tot Cell Count Fld Polynuclear WBCs # Fld Polynuclear WBCs % Fluid Mononuclear WBCs Fld Mononuclear WBCs % Fluid Lymphocytes Fluid Monocytes Fluid Macrophages Fld Mesothelial Cells Fl Pathologist Comment Fluid Glucose Fluid Total Protein Fluid LDH Fluid Comment 2 POC Glucose 271 H 10/23/20 10/23/20 10/23/20 07:55 07:55 07:58 WBC RBC Hgb Hct MCV MCH MCHC RDW Std Deviation RDW Coeff of [place] Plt Count MPV Immature Gran % (Auto) Neut % (Auto) Lymph % (Auto) Reagan % (Auto) Eos % (Auto) Baso % (Auto) Absolute Neuts (auto) Absolute Lymphs (auto) Nucleated RBC % PT 13.2 INR 1.1 Sodium Potassium Chloride Carbon Dioxide Anion Gap BUN Creatinine Estim Creat Clear Calc Est GFR (MDRD) Af Amer Est GFR (MDRD) Non-Af BUN/Creatinine Ratio Glucose Calcium Lactate Dehydrogenase 243 Total Protein 7.2 Globulin 3.8 Albumin/Globulin Ratio 0.9 Fluid Source Fluid Color Fluid Appearance Fluid WBC Fluid RBC Fluid Tot Cell Count Fld Polynuclear WBCs # Fld Polynuclear WBCs % Fluid Mononuclear WBCs Fld Mononuclear WBCs % Fluid Lymphocytes Fluid Monocytes Fluid Macrophages Fld Mesothelial Cells Fl Pathologist Comment Fluid Glucose Fluid Total Protein Fluid LDH Fluid Comment 2 POC Glucose 318 H 10/23/20 10/23/20 10/23/20 11:24 13:50 13:50 WBC RBC Hgb Hct MCV MCH MCHC RDW Std Deviation RDW Coeff of [place] Plt Count MPV Immature Gran % (Auto) Neut % (Auto) Lymph % (Auto) Reagan % (Auto) Eos % (Auto) Baso % (Auto) Absolute Neuts (auto) Absolute Lymphs (auto) Nucleated RBC % PT INR Sodium Potassium Chloride Carbon Dioxide Anion Gap BUN Creatinine Estim Creat Clear Calc Est GFR (MDRD) Af Amer Est GFR (MDRD) Non-Af BUN/Creatinine Ratio Glucose Calcium Lactate Dehydrogenase Total Protein Globulin Albumin/Globulin Ratio Fluid Source THORACENTESIS Fluid Color RED Fluid Appearance CLOUDY Fluid WBC 0.579 Fluid RBC 0.030 Fluid Tot Cell Count 0.649 H Fld Polynuclear WBCs # 0.014 Fld Polynuclear WBCs % 2.4 Fluid Mononuclear WBCs 0.565 Fld Mononuclear WBCs % 97.6 Fluid Lymphocytes 77 Fluid Monocytes 12 Fluid Macrophages 6 Fld Mesothelial Cells 5 Fl Pathologist Comment May follow Fluid Glucose 308 H Fluid Total Protein 2.7 Fluid LDH 97 Fluid Comment 2 SEE COMMENT POC Glucose 305 H 10/23/20 16:20 WBC RBC Hgb Hct MCV MCH MCHC RDW Std Deviation RDW Coeff of [place] Plt Count MPV Immature Gran % (Auto) Neut % (Auto) Lymph % (Auto) Reagan % (Auto) Eos % (Auto) Baso % (Auto) Absolute Neuts (auto) Absolute Lymphs (auto) Nucleated RBC % PT INR Sodium Potassium Chloride Carbon Dioxide Anion Gap BUN Creatinine Estim Creat Clear Calc Est GFR (MDRD) Af Amer Est GFR (MDRD) Non-Af BUN/Creatinine Ratio Glucose Calcium Lactate Dehydrogenase Total Protein Globulin Albumin/Globulin Ratio Fluid Source Fluid Color Fluid Appearance Fluid WBC Fluid RBC Fluid Tot Cell Count Fld Polynuclear WBCs # Fld Polynuclear WBCs % Fluid Mononuclear WBCs Fld Mononuclear WBCs % Fluid Lymphocytes Fluid Monocytes Fluid Macrophages Fld Mesothelial Cells Fl Pathologist Comment Fluid Glucose Fluid Total Protein Fluid LDH Fluid Comment 2 POC Glucose 294 H Micro: Microbiology 10/23/20 13:50 Fluid - Thoracentesis Fluid Gram Stain - Preliminary 10/20/20 03:20 Nasal Secretion SARS-CoV-2 Antigen (Rapid) - Final Cardiology Labs/Tests 10/23/20 04:25: WBC 15.4 H, RBC 4.35, Hgb 11.7 L, Hct 36.0 L, MCV 82.8, MCH 26.9 L, MCHC 32.5, Plt Count 409, MPV 9.6, Immature Gran % (Auto) 1.300 H, Neut % (Auto) 88.7 H, Lymph % (Auto) 4.2 L, Reagan % (Auto) 4.5, Eos % (Auto) 1.2, Baso % (Auto) 0.1, Absolute Neuts (auto) 13.6 H, Nucleated RBC % 0 10/23/20 04:25: Sodium 129 L, Potassium 4.5, Chloride 89 L, Carbon Dioxide 32.0, Anion Gap 8, BUN 28 H, Creatinine 0.90, Est GFR (MDRD) Af Amer 81, Est GFR (MDRD) Non-Af 67, BUN/Creatinine Ratio 31.0 H, Glucose 320 H, Calcium 9.1 10/23/20 07:55: PT 13.2, INR 1.1 Rhythm: Sinus rhythm Radiography Diagnostic Testing: Radiology Impression Chest X-Ray 10/23/20 05:55 IMPRESSION: Mild progression of the pleural parenchymal changes at the right lung base superimposed on mild CHF. Electronically Signed: Carlos Chou MD at 9:17 EDT , Service support , Thoracentesis Ultrasound 10/23/20 07:08 IMPRESSION: Ultrasound-guided right thoracentesis. Electronically Signed: Carlos Chou MD at 14:48 EDT , Service support , Chest X-Ray 10/23/20 13:40 IMPRESSION: Status post right thoracentesis. There is no evidence of pneumothorax. Electronically Signed: Carlos Chou MD at 14:22 EDT , Service support , Physical Exam Const alert and oriented x3 Orientation / Consciousness: awake HEENT normocephalic Eyes PERRL, EOMs intact bilaterally, conjunctivae normal and no scleral icterus Neck full ROM and supple Chest inspection of chest normal Resp Auscultation: wheezes and diminished lung sounds Cardio regular rhythm, S1 normal heart sound and S2 normal heart sound GI normal to inspection, nondistended, normoactive bowel sounds Extremity General Extremity: edema bilateral lower extremity Details: trace Skin no rashes or lesions noted Neuro oriented x3 and moves all extremities Psych mental status grossly normal Assessment & Plan Assessment/Plan (1) Cardiac dysrhythmia: PLAN: The patient has findings compatible with multiple underlying cardiac dysrhythmias. 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 The patient's cardiac dysrhythmias may be exacerbated by her underlying electrolyte related issues as well as her pulmonary issues superimposed upon her underlying chronic underlying cardiovascular issues. She has been remaining in sinus rhythm. Her IV amiodarone has been discontinued. She has remained without the need to return to IV amiodarone or an oral antiarrhythmic. (2) Atherosclerosis of [place] coronary artery of [place] heart without angina pectoris: PLAN: She does have a history of underlying CAD. At the moment she is not complaining of symptoms of classic angina pectoris. Her initial troponin I level was negative. Her ECG changes are noted. Her echocardiogram was reviewed. At the moment the plan is for continued conservative medical management while she undergoes her pulmonary evaluation with respect to her underlying lung carcinoma staging and therapy. Depending upon her clinical course she may need reevaluation in the cardiac catheterization laboratory at some point in time. (3) Presence of stent in coronary artery: PLAN: She has a history of previous PCI to the LAD. Her previous diagnostic cardiac catheterization is as noted. Again she will continue medical management and follow-up at this time. (4) Hyperlipidemia: QUALIFIERS: Hyperlipidemia type: unspecified Qualified Code(s): E78.5 - Hyperlipidemia, unspecified PLAN: She does need to continue risk factor evaluation care as deemed appropriate. (5) Hypertension: QUALIFIERS: Hypertension type: essential hypertension Qualified Code(s): I10 - Essential (primary) hypertension PLAN: Her blood pressure will need to be monitored as her medications were adjusted. (6) COPD exacerbation: PLAN: She is being evaluated by pulmonology/critical care medicine for COPD exacerbation. (7) Small cell lung cancer: PLAN: At the time of her evaluation earlier this morning she was pending thoracentesis procedure.It appears this was subsequently accomplished as the day went on and 450 cc of blood-tinged fluid was removed. Hopefully this will help with the staging of her carcinoma. It appears that her port placement for chemotherapy has been temporarily placed on hold until next week. Addt'l Comments The patient's case was discussed and reviewed previously with Dr. Richardson. This note was generated using a voice recognition system and there may be incorrect words, spelling or punctuation that were not noted when reviewing the office note prior to saving.
[2020-10-23] MEDS: Atorvastatin Calcium 40 MG Tablet PO (21:11)
[2020-10-23] MEDS: ALPRAZolam 0.25 MG Tablet PO (21:16)
[2020-10-23 21:51] LABS: Bedside Glucose 327 mg/dL (70-110)
[2020-10-24] VITALS (14 sets, daily range): BP systolic 122–148; BP diastolic 66–80; PULSE 62–70; RESP 16–18; TEMP 36.4–36.8; O2SAT 92–98
[2020-10-24] MEDS: busPIRone 5 MG Tablet 10 MG PO ×3 (05:59→21:23)
--- NOTE | 2020-10-24 06:52 | PCM.PN.INT ---
Assessment & Plan Assessment/Plan (1) Acute and chronic respiratory failure with hypoxia: (2) PSVT (paroxysmal supraventricular tachycardia): PLAN: RECOMMENDATIONS: 1. Continue to wean supplemental oxygen to maintain saturations at or above 90%. 2. Continue scheduled Atrovent. 3. Continue empiric antimicrobials and steroids. The patient will be transitioned to prednisone 40 mg daily. 4. Continue anxiolytics as ordered. 5. Encourage incentive spirometer use and mobilize patient as tolerated. 6. Await results of pleural fluid cytology. 7. The patient can likely be discharged home today on supplemental oxygen with antibiotics to complete her 7-day treatment course along with a prednisone taper. I would recommend that she follow-up in the pulmonary medicine clinic within 2 weeks. IMPRESSIONS: 1. Acute on chronic hypoxemic respiratory failure/COPD with exacerbation The patient has a presumptive history of COPD of unknown severity, as she has not yet completed pulmonary function studies. Unclear precipitating etiology for her exacerbation. The patient does have a history of heart failure with preserved ejection fraction as well, which may also have been contributing to her presenting symptoms, as she did appear to respond to IV diuretic therapy. For now, the patient will be continued on bronchodilators and steroids. Given her recent tachyarrhythmia issues, the patient will be continued on scheduled Atrovent. Supplemental oxygen will be weaned to maintain saturations at or above 90%. 2. Recent diagnosis of small cell lung cancer/unspecified pleural effusion The patient was recently diagnosed with what is suspected to be limited stage small cell lung cancer. The patient was able to undergo a successful ultrasound-guided thoracentesis of the right hemithorax on October 23. Per traditional Light's criteria, if at least one of the following three is fulfilled, the fluid would be considered an exudate: 1. Pleural fluid protein/serum protein ratio greater than 0.5 2. Pleural fluid LDH/serum LDH ratio greater than 0.6 3. Pleural fluid LDH greater than two thirds the upper limits of the laboratories normal serum LDH Based upon my review of the patient's pleural fluid analysis, along with serum LDH and total protein levels, the pleural fluid would be considered transudative in nature. Cytology is currently pending. She is currently scheduled to undergo port placement next week with general surgery. 3. History of coronary artery disease/PSVT The patient has a known history of coronary artery disease and has been experiencing significant tachy-arrhythmias. The patient's underlying arrhythmias have improved with aggressive electrolyte repletion and medical management. Cardiology is currently following to assist with management. 4. Diabetes mellitus/depression/anxiety/hypertension/GERD Complicates care, management, recovery and prognosis. Continue sliding scale coverage and Lantus. This note was generated with [employer] dictation software. It may contain incorrect words, spelling, and punctuation that were not noted in checking the note before signing. Subjective Subjective: The patient was seen and examined at the bedside this morning. Events from the last 24 hours have been reviewed. The patient is currently afebrile, hemodynamically stable and maintaining appropriate oxygen saturations on 3 L/min via nasal cannula. The patient is currently documented to be overall net -900 mL for the hospital admission. She did undergo successful ultrasound-guided thoracentesis with 400 mL of fluid removed from her right hemithorax. Pleural fluid was lymphocyte predominant. Cytology is pending. Objective Data Objective Data The patient's most recent lab work, culture data and imaging studies have all been personally reviewed. Surface echocardiogram revealed normal LV size with an ejection fraction of 50% and mild segmental systolic dysfunction. Right ventricular systolic pressure was estimated to be 44 mmHg. Rapid coronavirus antigen testing was negative. Vital Signs: Vital Signs Temp Pulse Resp BP Pulse Ox 97.9 F 66 18 148/76 H 96 10/24/20 03:07 10/24/20 03:33 10/24/20 03:07 10/24/20 03:07 10/24/20 03:07 Oxygen Flow Rate (L/min) [3] 3 Oxygen Flow Rate (L/min) [2] 3 Oxygen Flow Rate (L/min) [1 ( 3 Initial Baseline)] Oxygen Flow Rate (L/min) 3 Oxygen Delivery Method [3] Nasal Cannula Oxygen Delivery Method [2] Nasal Cannula Oxygen Delivery Method [1 ( Nasal Cannula Initial Baseline)] Oxygen Delivery Method Nasal Cannula Weight: 192 lb 10.944 oz Body Mass Index (BMI) 35.9 Finger Stick Blood Glucose 177 Intake & Output: Intake and Output for Last 24 Hours 10/22/20 10/23/20 10/24/20 23:59 23:59 23:59 Intake Total 1390 / 1390 940 / 1290 1050 / 1050 Output Total 2800 / 3600 3300 / 3300 Balance -1410 / -2210 -2360 / -2009 1050 / 1050 Lab / Micro Data Attestation: I reviewed the patient's lab results. Result Diagrams: 10/25/20 05:53 10/25/20 05:53 Labs: Laboratory Results - last 24 hr 10/23/20 10/23/20 10/23/20 07:55 07:55 07:58 PT 13.2 INR 1.1 Lactate Dehydrogenase 243 Total Protein 7.2 Globulin 3.8 Albumin/Globulin Ratio 0.9 Fluid Source Fluid Color Fluid Appearance Fluid WBC Fluid RBC Fluid Tot Cell Count Fld Polynuclear WBCs # Fld Polynuclear WBCs % Fluid Mononuclear WBCs Fld Mononuclear WBCs % Fluid Lymphocytes Fluid Monocytes Fluid Macrophages Fld Mesothelial Cells Fl Pathologist Comment Fluid Glucose Fluid Total Protein Fluid LDH Fluid Comment 2 POC Glucose 318 H 10/23/20 10/23/20 10/23/20 11:24 13:50 13:50 PT INR Lactate Dehydrogenase Total Protein Globulin Albumin/Globulin Ratio Fluid Source THORACENTESIS Fluid Color RED Fluid Appearance CLOUDY Fluid WBC 0.579 Fluid RBC 0.030 Fluid Tot Cell Count 0.649 H Fld Polynuclear WBCs # 0.014 Fld Polynuclear WBCs % 2.4 Fluid Mononuclear WBCs 0.565 Fld Mononuclear WBCs % 97.6 Fluid Lymphocytes 77 Fluid Monocytes 12 Fluid Macrophages 6 Fld Mesothelial Cells 5 Fl Pathologist Comment May follow Fluid Glucose 308 H Fluid Total Protein 2.7 Fluid LDH 97 Fluid Comment 2 SEE COMMENT POC Glucose 305 H 10/23/20 10/23/20 16:20 21:07 PT INR Lactate Dehydrogenase Total Protein Globulin Albumin/Globulin Ratio Fluid Source Fluid Color Fluid Appearance Fluid WBC Fluid RBC Fluid Tot Cell Count Fld Polynuclear WBCs # Fld Polynuclear WBCs % Fluid Mononuclear WBCs Fld Mononuclear WBCs % Fluid Lymphocytes Fluid Monocytes Fluid Macrophages Fld Mesothelial Cells Fl Pathologist Comment Fluid Glucose Fluid Total Protein Fluid LDH Fluid Comment 2 POC Glucose 294 H 327 H Micro: Microbiology 10/23/20 13:50 Fluid - Thoracentesis Fluid Gram Stain - Preliminary 10/20/20 03:20 Nasal Secretion SARS-CoV-2 Antigen (Rapid) - Final Radiography Diagnostic Testing: Radiology Impression Chest X-Ray 10/23/20 05:55 IMPRESSION: Mild progression of the pleural parenchymal changes at the right lung base superimposed on mild CHF. Electronically Signed: Carlos Chou MD at 9:17 EDT , Service support , Thoracentesis Ultrasound 10/23/20 07:08 IMPRESSION: Ultrasound-guided right thoracentesis. Electronically Signed: Carlos Chou MD at 14:48 EDT , Service support , Chest X-Ray 10/23/20 13:40 IMPRESSION: Status post right thoracentesis. There is no evidence of pneumothorax. Electronically Signed: Carlos Chou MD at 14:22 EDT , Service support , Physical Exam Const alert and no apparent distress General Appearance: cooperative HEENT normocephalic and head/scalp atraumatic Eyes PERRL and EOMs intact bilaterally Resp normal respiratory effort Effort and Inspection: able to speak in complete sentences Auscultation: diminished lung sounds; Negative for rales, rhonchi or wheezes Cardio regular rate, regular rhythm, S1 normal heart sound and S2 normal heart sound GI normal to inspection, nondistended, normoactive bowel sounds Extremity no clubbing, cyanosis or edema Skin no rashes or lesions noted Neuro oriented x3, CN's II-XII intact bilaterally and moves all extremities Psych cooperative and affect normal Appearance: well kempt Charges/Coding Visit Charges Inpatient E&M: 18967 Subs Hosp L3
[2020-10-24] MEDS: Ipratropium 0.5 MG/2.5 ML SOLUTION INHALATION (07:16)
[2020-10-24 08:02] LABS: Absolute Lymphocyte Count 1.02 X10^3/uL (0.83-4.51); Absolute Neutrophil Count 9.8 X10^3/uL (2.0-7.7); Basophil# 0.01 X10^3/uL; Basophil% 0.1 % (0-1); Eosinophil# 0.04 X10^3/uL; Eosinophils% 0.3 % (0-5); Hematocrit 36.3 % (37-47); Hemoglobin 11.8 g/dL (12.0-15.0); Lymphocyte # 1.02 X10^3/ul (0.83-4.51); Lymphocyte % 8.6 % (19-41); Mean Corp Hgb Conc 32.5 g/dL (32-36); Mean Corpuscular Hgb 26.5 pg (27.0-32.0); Mean Corpuscular Volume 81.6 fL (81-99); Mean Platelet Vol. 10.2 fl (6.2-12.0); Monocyte# 0.89 X10^3/uL; Monocyte% 7.5 % (0-10); NRBC Flagged by Analyzer 0 % (0-5); Neutrophil # 9.82 X10^3/uL (2.7-7.7); Neutrophil % 82.3 % (47-70); Platelet Count 427 K/mm3 (150-450); RBC Distribution Width CV 14.6 % (11.6-14.6); RBC Distribution Width SD 43.7 fl (35.1-43.9); Red Blood Count 4.45 M/mm3 (4.2-5.4); White Blood Count 11.9 K/mm3 (4.4-11.0)
[2020-10-24] MEDS: Insulin Lispro 100 UNIT/ML INSULN.PEN SC ×4 (08:13→21:24)
[2020-10-24] MEDS: Aspirin 325 MG Tablet PO (08:16)
[2020-10-24] MEDS: FLUoxetine 20 MG Capsule 60 MG PO (08:18)
[2020-10-24] MEDS: Pantoprazole Sodium 40 MG Tablet PO (08:18)
[2020-10-24] MEDS: Isosorbide Mononitrate 30 MG Tablet PO (08:18)
[2020-10-24] MEDS: Metoprolol Tartrate 50 MG Tablet PO ×2 (08:19→21:23)
[2020-10-24] MEDS: Lisinopril 5 MG Tablet PO (08:19)
[2020-10-24] MEDS: Fluticasone 0.05% 1 SPRAY NASAL.SRY NASAL ×2 (08:20→21:24)
[2020-10-24] MEDS: Enoxaparin 40 MG/0.4 ML Syringe SC (08:20)
[2020-10-24] MEDS: Nystatin Powder 15gm Bottle 1 APPLIC TOPICAL ×2 (08:20→21:25)
[2020-10-24] MEDS: Menthol/Lanolin/Calamine/Znox 113 GM Tube 1 APPLIC TOPICAL ×2 (08:22→21:25)
[2020-10-24 08:24] LABS: Anion Gap 8 (5-15); BUN 23 mg/dL (7-18); BUN/Creat Ratio 28.4 RATIO (10-20); Calcium,Total 9.1 mg/dL (8.5-10.1); Chloride 88 mmol/L (98-107); Creatinine, Serum 0.81 mg/dL (0.55-1.02); EST Glomerular Filtration Rate 76 mL/min (>60); Est Glom Filt Rate - Afr Amer 92 mL/min (>60); Estimated Creatinine Clearance 62.18 ml/min; Glucose 301 mg/dL (74-106); Potassium 4.6 mmol/L (3.5-5.1); Sodium Level 127 mmol/L (136-145)
[2020-10-24 08:31] LABS: Bedside Glucose 357 mg/dL (70-110)
--- NOTE | 2020-10-24 09:19 | PCM.PN.CARD ---
Subjective Subjective: Patient seen and evaluated. Appears to be doing well. Objective Data Vital Signs: Vital Signs Temp Pulse Resp BP Pulse Ox 97.9 F 65 18 148/76 H 98 10/24/20 03:07 10/24/20 08:19 10/24/20 07:16 10/24/20 03:07 10/24/20 07:16 Oxygen Flow Rate (L/min) [3] 3 Oxygen Flow Rate (L/min) [2] 3 Oxygen Flow Rate (L/min) [1 ( 3 Initial Baseline)] Oxygen Flow Rate (L/min) 3 Oxygen Delivery Method [3] Nasal Cannula Oxygen Delivery Method [2] Nasal Cannula Oxygen Delivery Method [1 ( Nasal Cannula Initial Baseline)] Oxygen Delivery Method Nasal Cannula Weight: 192 lb 10.944 oz Body Mass Index (BMI) 35.9 Finger Stick Blood Glucose 177 Intake & Output: Intake and Output for Last 24 Hours 10/22/20 10/23/20 10/24/20 23:59 23:59 23:59 Intake Total 1390 / 1390 940 / 1290 1050 / 1050 Output Total 2800 / 3600 3300 / 3300 Balance -1410 / -2210 -2360 / -2010 1050 / 1050 Lab / Micro Data Result Diagrams: 10/24/20 05:45 10/24/20 05:45 Labs: Laboratory Results - last 24 hr 10/23/20 10/23/20 10/23/20 11:24 13:50 13:50 WBC RBC Hgb Hct MCV MCH MCHC RDW Std Deviation RDW Coeff of Lashonda Plt Count MPV Immature Gran % (Auto) Neut % (Auto) Lymph % (Auto) [place] % (Auto) Eos % (Auto) Baso % (Auto) Absolute Neuts (auto) Absolute Lymphs (auto) Nucleated RBC % Sodium Potassium Chloride Carbon Dioxide Anion Gap BUN Creatinine Estim Creat Clear Calc Est GFR (MDRD) Af Amer Est GFR (MDRD) Non-Af BUN/Creatinine Ratio Glucose Calcium Fluid Source THORACENTESIS Fluid Color RED Fluid Appearance CLOUDY Fluid WBC 0.579 Fluid RBC 0.030 Fluid Tot Cell Count 0.649 H Fld Polynuclear WBCs # 0.014 Fld Polynuclear WBCs % 2.4 Fluid Mononuclear WBCs 0.565 Fld Mononuclear WBCs % 97.6 Fluid Lymphocytes 77 Fluid Monocytes 12 Fluid Macrophages 6 Fld Mesothelial Cells 5 Fl Pathologist Comment May follow Fluid Glucose 308 H Fluid Total Protein 2.7 Fluid LDH 97 Fluid Comment 2 SEE COMMENT POC Glucose 305 H 10/23/20 10/23/20 10/24/20 16:20 21:07 05:45 WBC 11.9 H RBC 4.45 Hgb 11.8 L Hct 36.3 L MCV 81.6 MCH 26.5 L MCHC 32.5 RDW Std Deviation 43.7 RDW Coeff of Lashonda 14.6 Plt Count 427 MPV 10.2 Immature Gran % (Auto) 1.200 H Neut % (Auto) 82.3 H Lymph % (Auto) 8.6 L [place] % (Auto) 7.5 Eos % (Auto) 0.3 Baso % (Auto) 0.1 Absolute Neuts (auto) 9.8 H Absolute Lymphs (auto) 1.02 Nucleated RBC % 0 Sodium Potassium Chloride Carbon Dioxide Anion Gap BUN Creatinine Estim Creat Clear Calc Est GFR (MDRD) Af Amer Est GFR (MDRD) Non-Af BUN/Creatinine Ratio Glucose Calcium Fluid Source Fluid Color Fluid Appearance Fluid WBC Fluid RBC Fluid Tot Cell Count Fld Polynuclear WBCs # Fld Polynuclear WBCs % Fluid Mononuclear WBCs Fld Mononuclear WBCs % Fluid Lymphocytes Fluid Monocytes Fluid Macrophages Fld Mesothelial Cells Fl Pathologist Comment Fluid Glucose Fluid Total Protein Fluid LDH Fluid Comment 2 POC Glucose 294 H 327 H 10/24/20 10/24/20 05:45 08:12 WBC RBC Hgb Hct MCV MCH MCHC RDW Std Deviation RDW Coeff of Lashonda Plt Count MPV Immature Gran % (Auto) Neut % (Auto) Lymph % (Auto) [place] % (Auto) Eos % (Auto) Baso % (Auto) Absolute Neuts (auto) Absolute Lymphs (auto) Nucleated RBC % Sodium 127 L Potassium 4.6 Chloride 88 L Carbon Dioxide 31.0 Anion Gap 8 BUN 23 H Creatinine 0.81 Estim Creat Clear Calc 62.18 Est GFR (MDRD) Af Amer 92 Est GFR (MDRD) Non-Af 76 BUN/Creatinine Ratio 28.4 H Glucose 301 H Calcium 9.1 Fluid Source Fluid Color Fluid Appearance Fluid WBC Fluid RBC Fluid Tot Cell Count Fld Polynuclear WBCs # Fld Polynuclear WBCs % Fluid Mononuclear WBCs Fld Mononuclear WBCs % Fluid Lymphocytes Fluid Monocytes Fluid Macrophages Fld Mesothelial Cells Fl Pathologist Comment Fluid Glucose Fluid Total Protein Fluid LDH Fluid Comment 2 POC Glucose 357 H Micro: Microbiology 10/23/20 13:50 Fluid - Thoracentesis Fluid Gram Stain - Preliminary 10/20/20 03:20 Nasal Secretion SARS-CoV-2 Antigen (Rapid) - Final Cardiology Labs/Tests 10/24/20 05:45: WBC 11.9 H, RBC 4.45, Hgb 11.8 L, Hct 36.3 L, MCV 81.6, MCH 26.5 L, MCHC 32.5, Plt Count 427, MPV 10.2, Immature Gran % (Auto) 1.200 H, Neut % (Auto) 82.3 H, Lymph % (Auto) 8.6 L, [place] % (Auto) 7.5, Eos % (Auto) 0.3, Baso % (Auto) 0.1, Absolute Neuts (auto) 9.8 H, Nucleated RBC % 0 10/24/20 05:45: Sodium 127 L, Potassium 4.6, Chloride 88 L, Carbon Dioxide 31.0, Anion Gap 8, BUN 23 H, Creatinine 0.81, Est GFR (MDRD) Af Amer 92, Est GFR (MDRD) Non-Af 76, BUN/Creatinine Ratio 28.4 H, Glucose 301 H, Calcium 9.1 Rhythm: EKG: ECHO: Stress Test: Cardiac Cath: PCI: CT Surgery: Holter monitor: EPS: PPM: CXR: Chest CT Scan: Radiography Diagnostic Testing: Radiology Impression Thoracentesis Ultrasound 10/23/20 07:08 IMPRESSION: Ultrasound-guided right thoracentesis. Electronically Signed: Carlos Chou MD at 14:48 EDT , Service support , Chest X-Ray 10/23/20 13:40 IMPRESSION: Status post right thoracentesis. There is no evidence of pneumothorax. Electronically Signed: Carlos Chou MD at 14:22 EDT , Service support , Physical Exam Const oriented x3 and healthy appearing Orientation / Consciousness: awake HEENT normocephalic Eyes PERRL and conjunctivae normal Neck supple, no JVD and no carotid bruits Chest inspection of chest normal Resp normal respiratory effort and clear to auscultation bilaterally Cardio Palpation: normal PMI Rate: regular rate Rhythm: regular rhythm Heart Sounds: S1 normal and S2 normal Peripheral Pulses: pulses 2+ throughout GI normal to inspection, nondistended, normoactive bowel sounds Extremity normal to inspection and no clubbing, cyanosis or edema Psych mental status grossly normal Assessment & Plan Assessment/Plan (1) Cardiac dysrhythmia: PLAN: The patient appears to be doing much better at this particular time I would not recommend that we make any changes. She will continue the same medications as she is taking for her she had an the onset rhythmic she will remain on the beta-lexa. (2) Hypertension: QUALIFIERS: Hypertension type: essential hypertension Qualified Code(s): I10 - Essential (primary) hypertension PLAN: Her blood pressure appears to be under good control at this particular time and the plan will be for her to continue the same medications with no changes. (3) Presence of stent in coronary artery: PLAN: She is status post previous angioplasty and stenting. She has not had any angina. Her troponins have been thus far unremarkable and I will not recommend we make any other changes.
[2020-10-24] MEDS: 0.9% Saline Lock 10 ML Syringe IV (10:01)
[2020-10-24] MEDS: predniSONE 20 MG Tablet 40 MG PO (10:04)
[2020-10-24 11:31] LABS: Bedside Glucose 266 mg/dL (70-110)
--- NOTE | 2020-10-24 14:03 | PN.HOSP_ITS ---
Subjective Subjective: Patient seen and examined. She feels much better today and has no complaitns. Shortness of breath is much improved. She had right-sided thoracentesis yesterday with removal of 450mls of fluid. She is now on 1L of oxygen. Review of systems otherwise negative. She has remained otherwise hemodynamically stable. Objective Data Objective Data Vital Signs: Vital Signs Temp Pulse Resp BP Pulse Ox 97.5 F L 62 16 138/66 H 92 10/24/20 08:20 10/24/20 11:55 10/24/20 08:20 10/24/20 08:20 10/24/20 10:05 Oxygen Flow Rate (L/min) [3] 3 Oxygen Flow Rate (L/min) [2] 3 Oxygen Flow Rate (L/min) [1 ( 3 Initial Baseline)] Oxygen Flow Rate (L/min) 1 Oxygen Delivery Method [3] Nasal Cannula Oxygen Delivery Method [2] Nasal Cannula Oxygen Delivery Method [1 ( Nasal Cannula Initial Baseline)] Oxygen Delivery Method Nasal Cannula Weight: 192 lb 10.944 oz Body Mass Index (BMI) 35.9 Finger Stick Blood Glucose 177 Intake & Output: Intake and Output for Last 24 Hours 10/22/20 10/23/20 10/24/20 23:59 23:59 23:59 Intake Total 1390 / 1390 940 / 1290 1412.25 / 1412.25 Output Total 2800 / 3600 3300 / 3300 Balance -1410 / -2210 -0 / -2009 1412.25 / 1412.25 Lab / Micro Data Result Diagrams: 10/24/20 05:45 10/24/20 05:45 Labs: Laboratory Results - last 24 hr 10/23/20 10/23/20 10/23/20 13:50 13:50 16:20 WBC RBC Hgb Hct MCV MCH MCHC RDW Std Deviation RDW Coeff of Lashonda Plt Count MPV Immature Gran % (Auto) Neut % (Auto) Lymph % (Auto) [place] % (Auto) Eos % (Auto) Baso % (Auto) Absolute Neuts (auto) Absolute Lymphs (auto) Nucleated RBC % Sodium Potassium Chloride Carbon Dioxide Anion Gap BUN Creatinine Estim Creat Clear Calc Est GFR (MDRD) Af Amer Est GFR (MDRD) Non-Af BUN/Creatinine Ratio Glucose Calcium Fluid Source THORACENTESIS Fluid Color RED Fluid Appearance CLOUDY Fluid WBC 0.579 Fluid RBC 0.030 Fluid Tot Cell Count 0.649 H Fld Polynuclear WBCs # 0.014 Fld Polynuclear WBCs % 2.4 Fluid Mononuclear WBCs 0.565 Fld Mononuclear WBCs % 97.6 Fluid Lymphocytes 77 Fluid Monocytes 12 Fluid Macrophages 6 Fld Mesothelial Cells 5 Fl Pathologist Comment May follow Fluid Glucose 308 H Fluid Total Protein 2.7 Fluid LDH 97 Fluid Comment 2 SEE COMMENT POC Glucose 294 H 10/23/20 10/24/20 10/24/20 21:07 05:45 05:45 WBC 11.9 H RBC 4.45 Hgb 11.8 L Hct 36.3 L MCV 81.6 MCH 26.5 L MCHC 32.5 RDW Std Deviation 43.7 RDW Coeff of Lashonda 14.6 Plt Count 427 MPV 10.2 Immature Gran % (Auto) 1.200 H Neut % (Auto) 82.3 H Lymph % (Auto) 8.6 L [place] % (Auto) 7.5 Eos % (Auto) 0.3 Baso % (Auto) 0.1 Absolute Neuts (auto) 9.8 H Absolute Lymphs (auto) 1.02 Nucleated RBC % 0 Sodium 127 L Potassium 4.6 Chloride 88 L Carbon Dioxide 31.0 Anion Gap 8 BUN 23 H Creatinine 0.81 Estim Creat Clear Calc 62.18 Est GFR (MDRD) Af Amer 92 Est GFR (MDRD) Non-Af 76 BUN/Creatinine Ratio 28.4 H Glucose 301 H Calcium 9.1 Fluid Source Fluid Color Fluid Appearance Fluid WBC Fluid RBC Fluid Tot Cell Count Fld Polynuclear WBCs # Fld Polynuclear WBCs % Fluid Mononuclear WBCs Fld Mononuclear WBCs % Fluid Lymphocytes Fluid Monocytes Fluid Macrophages Fld Mesothelial Cells Fl Pathologist Comment Fluid Glucose Fluid Total Protein Fluid LDH Fluid Comment 2 POC Glucose 327 H 10/24/20 10/24/20 08:12 11:21 WBC RBC Hgb Hct MCV MCH MCHC RDW Std Deviation RDW Coeff of Lashonda Plt Count MPV Immature Gran % (Auto) Neut % (Auto) Lymph % (Auto) [place] % (Auto) Eos % (Auto) Baso % (Auto) Absolute Neuts (auto) Absolute Lymphs (auto) Nucleated RBC % Sodium Potassium Chloride Carbon Dioxide Anion Gap BUN Creatinine Estim Creat Clear Calc Est GFR (MDRD) Af Amer Est GFR (MDRD) Non-Af BUN/Creatinine Ratio Glucose Calcium Fluid Source Fluid Color Fluid Appearance Fluid WBC Fluid RBC Fluid Tot Cell Count Fld Polynuclear WBCs # Fld Polynuclear WBCs % Fluid Mononuclear WBCs Fld Mononuclear WBCs % Fluid Lymphocytes Fluid Monocytes Fluid Macrophages Fld Mesothelial Cells Fl Pathologist Comment Fluid Glucose Fluid Total Protein Fluid LDH Fluid Comment 2 POC Glucose 357 H 266 H Micro: Microbiology 10/23/20 13:50 Fluid - Thoracentesis Fluid Gram Stain - Final 10/23/20 13:50 Fluid - Thoracentesis Fluid Body Fluid Culture - Preliminary No growth-Final to follow 10/20/20 03:20 Nasal Secretion SARS-CoV-2 Antigen (Rapid) - Final Radiography Diagnostic Testing: Radiology Impression Thoracentesis Ultrasound 10/23/20 07:08 IMPRESSION: Ultrasound-guided right thoracentesis. Electronically Signed: Carlos Chou MD at 14:48 EDT , Service support , Chest X-Ray 10/23/20 13:40 IMPRESSION: Status post right thoracentesis. There is no evidence of pneumothorax. Electronically Signed: Carlos Chou MD at 14:22 EDT , Service support , Physical Exam Const alert, oriented x3 and no apparent distress Constitutional Narrative: in acute respiratory distress Exam Limitations: no limitations HEENT head/scalp atraumatic and moist oral mucous membranes Eyes EOMs intact bilaterally and conjunctivae normal Neck no lymphadenopathy and supple Lymph Lymphatic: no lymphadenopathy noted Resp normal respiratory effort and no retractions Resp Narrative: Diminished breath sounds bibasilarly. on 1L of oxygen by nasal canula. has intact dressing over thoracentesis site. Effort and Inspection: tachypneic and labored Auscultation: diminished lung sounds Cardio S1 normal heart sound, S2 normal heart sound and no murmurs Cardio Narrative: tachycardic, in SVT Rate: tachycardic Rhythm: abnormal rhythm GI normal to inspection, nondistended, normoactive bowel sounds, soft to palpation, non-tender and non-distended Extremity normal to inspection, full ROM and normal capillary refill Skin no rashes or lesions noted and no wounds General Skin Exam: no breakdown Neuro oriented x3 and CN's II-XII intact bilaterally Sensorium / Orientation: awake and alert Psych affect normal Appearance: appropriate Assessment & Plan Assessment/Plan (1) Acute and chronic respiratory failure with hypoxia: (2) PSVT (paroxysmal supraventricular tachycardia): (3) Cardiac dysrhythmia: (4) Diabetic polyneuropathy associated with type 2 diabetes mellitus: (5) Lung neoplasm: (6) Small cell lung cancer: PLAN: #Parosxymal SVT * off amiodarone drip. on oral metoprolol 50mg bid. * Cardiology on board * 2D echo: EF of 50% with evidence of diastolic dysfunction and hypokinesis. RVSP is 44 mmHg. * #Acute hypoxic respiratory failure * likely related to the SVT and pleural effusion. * weaned off BIPAP * critical care on board * had USG guided thoracentesis with removal of 450mls of fluid, which was lymphocyte predominant. Cytology of fluid is pending. Per Light's criteria, fluid is an exudate. * on 1L of oxygen now. #Pleural effusion: * had thoracentesis as above. * on IV lasix #Hyponatremia: * Sodium is 129 today * This is chronic and is likely due to small cell lung cancer. * # Small cell lung cancer * recently diagnosed. * yet to start treatment * to follow up with oncology on outpatient basis * #COPD exacerbation * on breathing treatment with atrovent. * Titrate oxygen to maintain sats >90%. * IV solumedrol being switched to oral prednisone taper. * #CAD: s/p stents. on aspirin, atorvastatin, lisinopril and metoprolol #Type 2 diabetes mellitus with polyneuropathy * On Lantus 25 units daily. Insulin sliding scale. Checks AC at bedtime. * #GERD: On PPI #Anxiety and depression: on xanax and buspar #Hypertension: On metoprolol and lisinopril. DVT prophylaxis: lovenox Disposition: for dc home tomorrow Visit Charges Inpatient E&M: 34536 Subs Hosp L2
[2020-10-24 16:51] LABS: Bedside Glucose 418 mg/dL (70-110)
[2020-10-24] MEDS: Acetaminophen 325 MG Tablet 650 MG PO (19:56)
[2020-10-24] MEDS: Atorvastatin Calcium 40 MG Tablet PO (21:23)
[2020-10-24] MEDS: ALPRAZolam 0.25 MG Tablet PO (21:30)
[2020-10-24 21:31] LABS: Bedside Glucose 377 mg/dL (70-110)
[2020-10-25] VITALS (8 sets, daily range): BP systolic 135–143; BP diastolic 62–81; PULSE 61–87; RESP 17–18; TEMP 36.6–36.7; O2SAT 94–96
[2020-10-25] MEDS: Insulin Lispro 100 UNIT/ML INSULN.PEN SC ×2 (06:40→11:20)
[2020-10-25] MEDS: busPIRone 5 MG Tablet 10 MG PO (06:40)
[2020-10-25 06:45] LABS: Bedside Glucose 218 mg/dL (70-110)
[2020-10-25 06:51] LABS: Absolute Neutrophil Count 8.9 X10^3/uL (2.0-7.7); Basophil# 0.02 X10^3/uL; Basophil% 0.1 % (0-1); Eosinophil# 0.07 X10^3/uL; Eosinophils% 0.5 % (0-5); Hematocrit 39.7 % (37-47); Hemoglobin 12.6 g/dL (12.0-15.0); Lymphocyte % 20.8 % (19-41); Mean Corp Hgb Conc 31.7 g/dL (32-36); Mean Corpuscular Hgb 26.2 pg (27.0-32.0); Mean Corpuscular Volume 82.5 fL (81-99); Monocyte# 1.58 X10^3/uL; Monocyte% 11.7 % (0-10); NRBC Flagged by Analyzer 0 % (0-5); Neutrophil # 8.88 X10^3/uL (2.7-7.7); Neutrophil % 65.9 % (47-70); POSITIVE DIFFERENTIAL YES; Platelet Count 475 K/mm3 (150-450); RBC Distribution Width CV 14.7 % (11.6-14.6); RBC Distribution Width SD 44.2 fl (35.1-43.9); Red Blood Count 4.81 M/mm3 (4.2-5.4); White Blood Count 13.5 K/mm3 (4.4-11.0)
[2020-10-25 07:05] LABS: Differential Indicated SCAN CRITERIA MET
[2020-10-25 07:25] LABS: Anion Gap 5 (5-15); BUN 19 mg/dL (7-18); BUN/Creat Ratio 23.8 RATIO (10-20); Calcium,Total 9.1 mg/dL (8.5-10.1); Chloride 90 mmol/L (98-107); EST Glomerular Filtration Rate 77 mL/min (>60); Est Glom Filt Rate - Afr Amer 93 mL/min (>60); Estimated Creatinine Clearance 62.96 ml/min; Glucose 223 mg/dL (74-106); Potassium 4.2 mmol/L (3.5-5.1); Sodium Level 128 mmol/L (136-145)
--- NOTE | 2020-10-25 09:15 | PN.CARD_ITS ---
Subjective Subjective: Patient seen and evaluated. Appears to be doing well. Objective Data Vital Signs: Vital Signs Temp Pulse Resp BP Pulse Ox 98.1 F 61 17 135/81 H 94 10/25/20 03:15 10/25/20 07:00 10/25/20 03:15 10/25/20 03:15 10/25/20 07:02 Oxygen Flow Rate (L/min) [3] 3 Oxygen Flow Rate (L/min) [2] 3 Oxygen Flow Rate (L/min) [1 ( 3 Initial Baseline)] Oxygen Flow Rate (L/min) 2 Oxygen Delivery Method [3] Nasal Cannula Oxygen Delivery Method [2] Nasal Cannula Oxygen Delivery Method [1 ( Nasal Cannula Initial Baseline)] Oxygen Delivery Method Nasal Cannula Weight: 215 lb 6.266 oz Body Mass Index (BMI) 35.9 Finger Stick Blood Glucose 177 Intake & Output: Intake and Output for Last 24 Hours 10/23/20 10/24/20 10/25/20 23:59 23:59 23:59 Intake Total 940 / 1290 / 1951. 240 / 240 Output Total 3300 / 3300 Balance -2359 / 240 / 240 Lab / Micro Data Result Diagrams: 10/25/20 05:53 10/25/20 05:53 Labs: Laboratory Results - last 24 hr 10/24/20 10/24/20 10/24/20 11:21 16:42 21:20 WBC RBC Hgb Hct MCV MCH MCHC RDW Std Deviation RDW Coeff of Lashonda Plt Count MPV Immature Gran % (Auto) Neut % (Auto) Lymph % (Auto) [place] % (Auto) Eos % (Auto) Baso % (Auto) Absolute Neuts (auto) Absolute Lymphs (auto) Nucleated RBC % Diff Path Review Sodium Potassium Chloride Carbon Dioxide Anion Gap BUN Creatinine Estim Creat Clear Calc Est GFR (MDRD) Af Amer Est GFR (MDRD) Non-Af BUN/Creatinine Ratio Glucose Calcium POC Glucose 266 H 418 H 377 H 10/25/20 10/25/20 10/25/20 05:53 05:53 06:37 WBC 13.5 H RBC 4.81 Hgb 12.6 Hct 39.7 MCV 82.5 MCH 26.2 L MCHC 31.7 L RDW Std Deviation 44.2 H RDW Coeff of Lashonda 14.7 H Plt Count 475 H MPV 10.0 Immature Gran % (Auto) 1.000 H Neut % (Auto) 65.9 Lymph % (Auto) 20.8 [place] % (Auto) 11.7 H Eos % (Auto) 0.5 Baso % (Auto) 0.1 Absolute Neuts (auto) 8.9 H Absolute Lymphs (auto) 2.80 Nucleated RBC % 0 Diff Path Review May foll Sodium 128 L Potassium 4.2 Chloride 90 L Carbon Dioxide 33.0 H Anion Gap 5 BUN 19 H Creatinine 0.80 Estim Creat Clear Calc 62.96 Est GFR (MDRD) Af Amer 93 Est GFR (MDRD) Non-Af 77 BUN/Creatinine Ratio 23.8 H Glucose 223 H Calcium 9.1 POC Glucose 218 H Micro: Microbiology 10/23/20 13:50 Fluid - Thoracentesis Fluid Gram Stain - Final 10/23/20 13:50 Fluid - Thoracentesis Fluid Body Fluid Culture - Preliminary No growth-Final to follow 10/20/20 03:20 Nasal Secretion SARS-CoV-2 Antigen (Rapid) - Final Cardiology Labs/Tests 10/25/20 05:53: WBC 13.5 H, RBC 4.81, Hgb 12.6, Hct 39.7, MCV 82.5, MCH 26.2 L, MCHC 31.7 L, Plt Count 475 H, MPV 10.0, Immature Gran % (Auto) 1.000 H, Neut % (Auto) 65.9, Lymph % (Auto) 20.8, [place] % (Auto) 11.7 H, Eos % (Auto) 0.5, Baso % (Auto) 0.1, Absolute Neuts (auto) 8.9 H, Nucleated RBC % 0 10/25/20 05:53: Sodium 128 L, Potassium 4.2, Chloride 90 L, Carbon Dioxide 33.0 H, Anion Gap 5, BUN 19 H, Creatinine 0.80, Est GFR (MDRD) Af Amer 93, Est GFR (MDRD) Non-Af 77, BUN/Creatinine Ratio 23.8 H, Glucose 223 H, Calcium 9.1 Rhythm: EKG: ECHO: Stress Test: Cardiac Cath: PCI: CT Surgery: Holter monitor: EPS: PPM: CXR: Chest CT Scan: Physical Exam Const oriented x3 and healthy appearing Orientation / Consciousness: awake HEENT normocephalic Eyes PERRL and conjunctivae normal Neck supple, no JVD and no carotid bruits Chest inspection of chest normal Resp normal respiratory effort and clear to auscultation bilaterally Cardio Palpation: normal PMI Rate: regular rate Rhythm: regular rhythm Heart Sounds: S1 normal and S2 normal Peripheral Pulses: pulses 2+ throughout GI normal to inspection, nondistended, normoactive bowel sounds Extremity normal to inspection and no clubbing, cyanosis or edema Psych mental status grossly normal Assessment & Plan Assessment/Plan (1) Cardiac dysrhythmia: PLAN: The patient appears to be doing much better at this particular time I would not recommend that we make any changes. She will continue the same me dications as she is taking for her she had an the onset rhythmic she will remain on the beta-lexa. (2) Hypertension: QUALIFIERS: Hypertension type: essential hypertension Qualified Code(s): I10 - Essential (primary) hypertension PLAN: Her blood pressure appears to be under good control at this particular time and the plan will be for her to continue the same medications with no changes. (3) Presence of stent in coronary artery: PLAN: She is status post previous angioplasty and stenting. She has not had any angina. Her troponins have been thus far unremarkable and I will not recommend we make any other changes.
[2020-10-25] MEDS: Fluticasone 0.05% 1 SPRAY NASAL.SRY NASAL (09:45)
[2020-10-25] MEDS: Metoprolol Tartrate 50 MG Tablet PO (09:47)
[2020-10-25] MEDS: FLUoxetine 20 MG Capsule 60 MG PO (09:47)
[2020-10-25] MEDS: Pantoprazole Sodium 40 MG Tablet PO (09:47)
[2020-10-25] MEDS: Lisinopril 5 MG Tablet PO (09:47)
[2020-10-25] MEDS: Isosorbide Mononitrate 30 MG Tablet PO (09:48)
[2020-10-25] MEDS: Aspirin 325 MG Tablet PO (09:48)
[2020-10-25] MEDS: predniSONE 20 MG Tablet 40 MG PO (09:48)
[2020-10-25] MEDS: Enoxaparin 40 MG/0.4 ML Syringe SC (09:50)
[2020-10-25] MEDS: Nystatin Powder 15gm Bottle 1 APPLIC TOPICAL (09:53)
[2020-10-25] MEDS: Menthol/Lanolin/Calamine/Znox 113 GM Tube 1 APPLIC TOPICAL (09:53)
[2020-10-25] MEDS: 0.9% Saline Lock 10 ML Syringe IV (10:53)
[2020-10-25 11:26] LABS: Bedside Glucose 255 mg/dL (70-110)
--- NOTE | 2020-10-25 11:45 | PCM.DC.SUM ---
Providers Date of Admission: 10/20/20 Primary Care Physician: Dr. Sarah Duarte MD Consultations 10/20/20 05:38 Consult: Solar Energy Technician / Pulmonary Medicine Routine Consulting Provider: Wilfrid Richardson Reason for Consult: icu EMERGENT Consult: Yes MD Notified: Yes Date Notified:: 10/20/20 Time Notified: 04:02 Method of Notification: Verbal Method of Consult:: In-Person Reason For Visit: RESPIRATORY FAILURE, PSVT, LUNG CANCER Diagnosis Discharge Diagnosis (1) Cardiac dysrhythmia: Status: Acute Code(s): I49.9 - Cardiac arrhythmia, unspecified (2) Hypertension: Status: Chronic Code(s): I10 - Essential (primary) hypertension Qualifiers: Hypertension type: essential hypertension Qualified Code(s): I10 - Essential (primary) hypertension (3) Presence of stent in coronary artery: Status: Chronic Code(s): Z95.5 - Presence of coronary angioplasty implant and graft Medications at Discharge Home Medications nitroglycerin 0.4 mg SL Q5M PRN 07/03/13 albuterol sulfate 2 puff INHALATION Q4H PRN PRN 11/20/19 buspirone 5 mg PO TID 11/20/19 dicyclomine 10 - 20 mg PO TID PRN PRN 11/20/19 metformin 1,000 mg PO BID 11/20/19 pantoprazole 40 mg PO DAILY 11/20/19 atorvastatin 40 mg tablet 40 mg PO QHS #90 tablet 12/23/19 budesonide-formoterol HFA 160 mcg-4.5 mcg/actuation aerosol inhaler 2 puff INHALATION BID 03/09/20 meclizine 25 mg tablet 25 mg PO DAILY PRN 03/09/20 insulin glargine 25 unit SC QAM 07/24/20 alprazolam 0.5 mg tablet 0.25 mg PO QHS PRN PRN tablet 09/14/20 lisinopril 5 mg tablet 5 mg PO DAILY #90 tablet 10/05/20 lidocaine-prilocaine 2.5 %-2.5 % topical cream 1 applic TOPICAL ONCE PRN 30 Days #30 g 10/19/20 ondansetron 8 mg disintegrating tablet 8 mg PO Q8H PRN #30 tab 10/19/20 prochlorperazine maleate 10 mg tablet 10 mg PO Q6H PRN #30 tab 10/19/20 Trulicity 1.5 mg SUBCUT QWEEK 10/20/20 fluoxetine 60 mg PO DAILY 10/20/20 insulin aspart U-100 [Novolog Flexpen U-100 Insulin] 20 unit SC TID 10/20/20 sodium chloride 1 g PO DAILY 10/20/20 metoprolol tartrate 50 mg PO BID #60 tab 10/25/20 prednisone 40 mg PO DAILY@0800 #10 tab 10/25/20 Hospital Course Operations None Procedures 2-D Echocardiogram and Thoracentesis Summary of Care Provided Minutes Spent on Discharge: 50 Hospital Course: Patient is a 60-year-old female with a past medical history as outlined was admitted through the ED on 10/20/2020 with a complaint of acute onset of shortness of breath. Shortness of breath started on the day of admission and when she arrived in the ED, she had a pulse ox of 50% and respiratory rate of 14 was immediately placed on BiPAP. Subsequently started having paroxysmal supraventricular tachycardia with heart rate going up to 220. She was admitted and managed for acute hypoxic respiratory failure and paroxysmal supraventricular tachycardia. Of note, patient had recently been diagnosed with small cell lung cancer and was here to start treatment. She had had a PET scan and was found to have limited stage disease. On admission, magnesium was 1.5 and BNP was 167. Lactic acid was elevated at 3.5 initial troponin was negative. Chest x-ray showed bilateral interstitial prominence with right-sided pleural effusion. She was also diuresed with IV Lasix and admitted to the ICU. Pulmonology and cardiology were consulted. She had a 2D echo done which showed EF of 50% with mild segmental systolic dysfunction and right ventricular systolic pressure 44 mmHg as well as evidence of diastolic dysfunction. Patient shortness of breath worsened to the point where she had to be put on BiPAP. She was also placed on amiodarone drip on account of paroxysmal supraventricular tachycardia. He was eventually weaned off of amiodarone and heart rate remained controlled. She was transitioned onto metoprolol. She had thoracentesis done on 10/23/2020 with drainage of 450 mils of fluid from the right pleural space. Analysis of the fluid showed it was an exudate and pathology was pending at time of discharge. She was also started on antibiotics and IV Solu-Medrol for COPD exacerbation. Patient shortness of breath gradually improved and she was weaned off of BiPAP in airflow and down to 2 L of oxygen which she says she was wearing at home. She remained stable and was discharged home on 10/25/2020. She is to follow-up with her primary care doctor, oncology and pulmonology as well as cardiology. She was discharged with a prednisone taper and also metoprolol 50 twice daily. Patient seen and examined prior to discharge. She had no complaints and felt well. Review of systems otherwise negative. Labs and vitals reviewed. Medication reviewed and reconciled. Physical Exam Const alert, oriented x3 and no apparent distress Constitutional Narrative: in acute respiratory distress Exam Limitations: no limitations HEENT head/scalp atraumatic and moist oral mucous membranes Eyes EOMs intact bilaterally and conjunctivae normal Neck no lymphadenopathy and supple Lymph Lymphatic: no lymphadenopathy noted Resp normal respiratory effort and no retractions Resp Narrative: Diminished breath sounds bibasilarly. on 1L of oxygen by nasal canula. has intact dressing over thoracentesis site. Effort and Inspection: tachypneic and labored Auscultation: diminished lung sounds Cardio S1 normal heart sound, S2 normal heart sound and no murmurs Cardio Narrative: tachycardic, in SVT Rate: tachycardic Rhythm: abnormal rhythm GI normal to inspection, nondistended, normoactive bowel sounds, soft to palpation, non-tender and non-distended Extremity normal to inspection, full ROM and normal capillary refill Skin no rashes or lesions noted and no wounds General Skin Exam: no breakdown Neuro oriented x3 and CN's II-XII intact bilaterally Sensorium / Orientation: awake and alert Psych affect normal Appearance: appropriate Mood & Affect: anxious ABG / Lab / Microbiology Data Result Diagrams: 10/25/20 05:53 10/25/20 05:53 Laboratory: Laboratory Results - last 24 hr 10/24/20 10/24/20 10/25/20 16:42 21:20 05:53 WBC 13.5 H RBC 4.81 Hgb 12.6 Hct 39.7 MCV 82.5 MCH 26.2 L MCHC 31.7 L RDW Std Deviation 44.2 H RDW Coeff of Lashonda 14.7 H Plt Count 475 H MPV 10.0 Immature Gran % (Auto) 1.000 H Neut % (Auto) 65.9 Lymph % (Auto) 20.8 [place] % (Auto) 11.7 H Eos % (Auto) 0.5 Baso % (Auto) 0.1 Absolute Neuts (auto) 8.9 H Absolute Lymphs (auto) 2.80 Nucleated RBC % 0 Diff Path Review May foll Sodium Potassium Chloride Carbon Dioxide Anion Gap BUN Creatinine Estim Creat Clear Calc Est GFR (MDRD) Af Amer Est GFR (MDRD) Non-Af BUN/Creatinine Ratio Glucose Calcium POC Glucose 418 H 377 H 10/25/20 10/25/20 10/25/20 05:53 06:37 11:19 WBC RBC Hgb Hct MCV MCH MCHC RDW Std Deviation RDW Coeff of Lashonda Plt Count MPV Immature Gran % (Auto) Neut % (Auto) Lymph % (Auto) [place] % (Auto) Eos % (Auto) Baso % (Auto) Absolute Neuts (auto) Absolute Lymphs (auto) Nucleated RBC % Diff Path Review Sodium 128 L Potassium 4.2 Chloride 90 L Carbon Dioxide 33.0 H Anion Gap 5 BUN 19 H Creatinine 0.80 Estim Creat Clear Calc 62.96 Est GFR (MDRD) Af Amer 93 Est GFR (MDRD) Non-Af 77 BUN/Creatinine Ratio 23.8 H Glucose 223 H Calcium 9.1 POC Glucose 218 H 255 H Microbiology: Microbiology 10/23/20 13:50 Gram Stain - Final Fluid - Thoracentesis Fluid Body Fluid Culture - Preliminary No growth-Final to follow Microbiology 10/23/20 13:50 Fluid - Thoracentesis Fluid Gram Stain - Final 10/23/20 13:50 Fluid - Thoracentesis Fluid Body Fluid Culture - Preliminary No growth-Final to follow 10/20/20 03:20 Nasal Secretion SARS-CoV-2 Antigen (Rapid) - Final D/C Instructions Discharge Diet: Low fat / Low cholesterol and 1800 Calorie Control Diet Discharge Activity: Return to Normal Activity Weight Bearing Status: Weight bearing as tolerated Call your doctor if you observe: Fever of 101 or Higher, Shortness of breath, Dizziness, Swelling in the ankles, Chest pain and Increased palpitations (irregular heartbeat) Meaningful Use Info Meaningful Use Diagnoses (Choose all that apply): None applicable Discharge Plan Admission Admit Date/Time: 10/20/20 04:03 Primary Reason for Your Visit: acute hypoxic respiratory failure Attending Provider: Norma Acevedo Primary Care Provider: Sarah Duarte Consulting Providers: Wilfrid Richardson Instructions Patient Instructions: ED About Arrhythmias, ED Chest Pain, Noncardiac, ED Tachycardia: PAT, ED Pleural Effusion Additional Instructions / Restrictions: use oxygen as needed for shortness of breath Discharge Orders/Prescriptions Prescriptions: New prednisone 20 mg Tablet 40 mg PO DAILY@0800 Qty: 10 RF: 0 metoprolol tartrate 50 mg Tablet 50 mg PO BID Qty: 60 RF: 1 Continued meclizine 25 mg tablet 25 mg PO DAILY PRN (Reason: Vertigo) RF: 0 prochlorperazine maleate 10 mg tablet 10 mg PO Q6H PRN (Reason: nausea and vomiting) Qty: 30 RF: 2 ondansetron 8 mg tablet,disintegrating 8 mg PO Q8H PRN (Reason: nausea and vomiting) Qty: 30 RF: 2 lidocaine-prilocaine 2.5-2.5 % cream 1 applic topical ONCE PRN (Reason: Port access ) 30 Days Qty: 30 RF: 2 nitroglycerin 0.4 MG tablet 0.4 mg SL Q5M PRN (Reason: Chest Pain) RF: 0 alprazolam 0.5 mg tablet 0.25 mg PO QHS PRN PRN (Reason: Sleep) RF: 0 buspirone 5 MG tablet 5 mg PO TID RF: 0 pantoprazole 20 MG tablet 40 mg PO DAILY RF: 0 metformin 1,000 MG tablet 1,000 mg PO BID RF: 0 albuterol sulfate 90 mcg/actuation HFA aerosol inhaler 2 puff INHALATION Q4H PRN PRN (Reason: Sob &/Or Wheezing) RF: 0 dicyclomine 10 MG capsule 10 - 20 mg PO TID PRN PRN (Reason: stomach) RF: 0 budesonide-formoterol 160-4.5 mcg/actuation HFA aerosol inhaler 2 puff INHALATION BID RF: 0 insulin glargine 100 UNIT/ML insulin pen 25 unit SC QAM RF: 0 Trulicity 1.5 mg/0.5 mL pen injector 1.5 mg SUBCUT QWEEK RF: 0 sodium chloride 1 gram tablet 1 g PO DAILY RF: 0 fluoxetine 20 mg capsule 60 mg PO DAILY RF: 0 insulin aspart U-100 [Novolog Flexpen U-100 Insulin] 100 unit/mL (3 mL) insulin pen 20 unit SC TID RF: 0 atorvastatin 40 mg tablet 40 mg PO QHS Qty: 90 RF: 3 lisinopril 5 mg tablet 5 mg PO DAILY Qty: 90 RF: 1 Discontinued metoprolol tartrate 25 mg tablet 25 mg PO BID RF: 0 Referrals / Follow Up: Lukasz Matos MD [STAFF PHYSICIAN] - Within 2 Weeks Wilfrid Richardson DO [STAFF PHYSICIAN] - Within 2 Weeks Sarah Duarte MD [Primary Care Provider] - Within 1 Week Max Gaspar MD [NON-STAFF] - Within 1 Week Disposition Disposition (needs filled in before D/C Order can be placed): Home, self care Visit Charges Inpatient E&M: [id number] Disch Hosp
--- NOTE | 2020-10-25 12:46 | PCM.DC ---
Discharge Instructions Diet Discharge Diet: Low fat / Low cholesterol and 1800 Calorie Control Diet Activity Discharge Activity: Return to Normal Activity Weight Bearing Status: Weight bearing as tolerated Dressing / Incision Call your doctor if you observe: Fever of 101 or Higher, Shortness of breath, Dizziness, Swelling in the ankles, Chest pain and Increased palpitations (irregular heartbeat) Follow Up Care Test Results: Test results from this visit will be discussed in further detail at your follow-up appointment, if applicable. Discharge Plan Admission Admit Date/Time: 10/20/20 04:03 Primary Reason for Your Visit: acute hypoxic respiratory failure Attending Provider: Norma Acevedo Primary Care Provider: Sarah Duarte Consulting Providers: Wilfrid Richardson Instructions Patient Instructions: ED About Arrhythmias, ED Chest Pain, Noncardiac, ED Tachycardia: PAT, ED Pleural Effusion Additional Instructions / Restrictions: use oxygen as needed for shortness of breath Discharge Orders/Prescriptions Prescriptions: New prednisone 20 mg Tablet 40 mg PO DAILY@0800 Qty: 10 RF: 0 metoprolol tartrate 50 mg Tablet 50 mg PO BID Qty: 60 RF: 1 Continued meclizine 25 mg tablet 25 mg PO DAILY PRN (Reason: Vertigo) RF: 0 prochlorperazine maleate 10 mg tablet 10 mg PO Q6H PRN (Reason: nausea and vomiting) Qty: 30 RF: 2 ondansetron 8 mg tablet,disintegrating 8 mg PO Q8H PRN (Reason: nausea and vomiting) Qty: 30 RF: 2 lidocaine-prilocaine 2.5-2.5 % cream 1 applic topical ONCE PRN (Reason: Port access ) 30 Days Qty: 30 RF: 2 nitroglycerin 0.4 MG tablet 0.4 mg SL Q5M PRN (Reason: Chest Pain) RF: 0 alprazolam 0.5 mg tablet 0.25 mg PO QHS PRN PRN (Reason: Sleep) RF: 0 buspirone 5 MG tablet 5 mg PO TID RF: 0 pantoprazole 20 MG tablet 40 mg PO DAILY RF: 0 metformin 1,000 MG tablet 1,000 mg PO BID RF: 0 albuterol sulfate 90 mcg/actuation HFA aerosol inhaler 2 puff INHALATION Q4H PRN PRN (Reason: Sob &/Or Wheezing) RF: 0 dicyclomine 10 MG capsule 10 - 20 mg PO TID PRN PRN (Reason: stomach) RF: 0 budesonide-formoterol 160-4.5 mcg/actuation HFA aerosol inhaler 2 puff INHALATION BID RF: 0 insulin glargine 100 UNIT/ML insulin pen 25 unit SC QAM RF: 0 Trulicity 1.5 mg/0.5 mL pen injector 1.5 mg SUBCUT QWEEK RF: 0 sodium chloride 1 gram tablet 1 g PO DAILY RF: 0 fluoxetine 20 mg capsule 60 mg PO DAILY RF: 0 insulin aspart U-100 [Novolog Flexpen U-100 Insulin] 100 unit/mL (3 mL) insulin pen 20 unit SC TID RF: 0 atorvastatin 40 mg tablet 40 mg PO QHS Qty: 90 RF: 3 lisinopril 5 mg tablet 5 mg PO DAILY Qty: 90 RF: 1 Discontinued metoprolol tartrate 25 mg tablet 25 mg PO BID RF: 0 Referrals / Follow Up: Lukasz Matos MD [STAFF PHYSICIAN] - Within 2 Weeks Wilfrid Richardson DO [STAFF PHYSICIAN] - Within 2 Weeks Sarah Duarte MD [Primary Care Provider] - Within 1 Week Max Gaspar MD [NON-STAFF] - Within 1 Week Disposition Disposition (needs filled in before D/C Order can be placed): Home, self care
[2020-10-26 13:30] LABS: Pathologist Review Reviewed
--- NOTE | 2020-10-26 14:24 | CASEMGMT ---
MACK WOOD Discharge F/U Phone Call LACMichael: 13 Strata: 3 Discharge date: 10/25/20 Call date: 10/26/20 Call time: [phone] Admission dx: Resp failure, PSVT, Lung CA Pt states has been 'doing ok' since discharge. Pt states was supposed to start chemo today but they have pushed it back a week d/t admission. Pt states the cancer center then called to see if she could do her radiation consult today so she has spent the day there. Pt states plan is for port placement on 10/28/20. Pt states no questions with discharge instructions/medications and states if she has any questions then she will ask them when here on monday. Pt states no suggestions for [facility] and states 'I was treated wonderful by every person, every shift, on every floor.' Pt voices no further questions/concerns/needs. [place] MACK WOOD
[2020-10-27 14:08] LABS: Pathologist Comment/Body Fluid Reviewed
== END 2020-10-25 13:50 | disposition home or self-care (01) | DRG 140 ==
LOC: ED 02:49 → ICU 04:08 → PCU 10-25 11:57 → ICU 10-26 10:17 → PCU 10-26 10:17
PROVIDERS: Internal Medicine Cardiovascular Disease; Internal Medicine Critical Care Medicine; Admitting Provider Family Medicine; Emergency Provider Emergency Medicine; PCP Internal Medicine; Visit Provider Student in an Organized Health Care Education/Training Program
DX: J44.1 Chronic obstructive pulmonary disease with (acute) exacerbation (principal); I47.1 Supraventricular tachycardia; J96.21 Acute and chronic respiratory failure with hypoxia; C34.2 Malignant neoplasm of middle lobe, bronchus or lung; E11.42 Type 2 diabetes mellitus with diabetic polyneuropathy; E78.5 Hyperlipidemia, unspecified; I11.0 Hypertensive heart disease with heart failure; I50.32 Chronic diastolic (congestive) heart failure; K21.9 Gastro-esophageal reflux disease without esophagitis; I25.10 Atherosclerotic heart disease of native coronary artery without angina pectoris; I48.0 Paroxysmal atrial fibrillation; F32.9 Major depressive disorder, single episode, unspecified; I44.4 Left anterior fascicular block; G25.81 Restless legs syndrome; E87.2 Acidosis; E83.42 Hypomagnesemia; E87.1 Hypo-osmolality and hyponatremia; R22.2 Localized swelling, mass and lump, trunk; E66.9 Obesity, unspecified; I25.2 Old myocardial infarction; Z99.81 Dependence on supplemental oxygen; Z79.899 Other long term (current) drug therapy; Z79.4 Long term (current) use of insulin; Z87.891 Personal history of nicotine dependence; Z86.718 Personal history of other venous thrombosis and embolism; Z68.35 Body mass index [BMI] 35.0-35.9, adult; Z53.09 Procedure and treatment not carried out because of other contraindication
CPT/HCPCS: 32555; 36415; 71045; 71046; 80048; 80053; 82945; 82962; 83605; 83615; 83735; 83880; 84100; 84156; 84157; 84443; 84484; 85025; 85610; 87070; 87075; 87205; 87426; 88108; 88305; 88313; 88341; 88342; 89050; 93005; 93306; 94002; 94003; 94640; 97110; 97162; 97166; 97535; 99285; J7050; Q9957; A4216; C8929; J0153; J0696; J1940

== ENCOUNTER 2020-10-28 13:07 | Day surgery (SDC) | payer MEDICAID, SELFPAY ==
[2020-10-19 09:12] VITALS: BMI 35.7
[2020-10-20 05:04] VITALS: BMI 35.9
[2020-10-28 13:38] VITALS: BP 120/60; PULSE 62; RESP 20; TEMP 36.4; O2SAT 97; BMI 33.8
[2020-10-28] MEDS: Lactated Ringers 1,000 ML 100 ML IV (13:45)
--- NOTE | 2020-10-28 14:12 | PCM.HP.BLA ---
History and Physical Date of Admission: 10/28/20 Intake Vital Signs 10/19/20 08:51 10/19/20 08:52 Height 5 ft 4 in Weight: 201 lb BMI 34.4 35.2 BP 157/90 H Blood Pressure Location Rt brachial Position Sitting Respiration 16 Pulse 79 Pulse Source Monitor Temp 97.7 F L Temp Source Temporal Pulse Oximetry (%) 99 Oxygen Delivery Method nasal canula Oxygen Flow Rate (L/min) 4 Intake Visit Reasons: PORT PLACEMENT Chief Complaint: F/u for Small cell lung cancer management. Allergies No Known Allergies Allergy (Verified 10/19/20 08:50) Medications nitroglycerin 0.4 mg SL Q5M PRN 07/03/13 [History Confirmed 10/19/20] metoprolol tartrate 25 mg tablet 25 mg PO BID #60 tablet 08/14/19 [Rx Confirmed 10/19/20] albuterol sulfate 2 puff INHALATION Q4H PRN PRN 11/20/19 [History Confirmed 10/19/20] buspirone 5 mg PO TID 11/20/19 [History Confirmed 10/19/20] dicyclomine 10 - 20 mg PO TID PRN PRN 11/20/19 [History Confirmed 10/19/20] metformin 1,000 mg PO BID 11/20/19 [History Confirmed 10/19/20] pantoprazole 20 mg PO DAILY 11/20/19 [History Confirmed 10/19/20] atorvastatin 40 mg tablet 40 mg PO QHS #90 tablet 12/23/19 [Rx Confirmed 10/19/20] budesonide-formoterol HFA 160 mcg-4.5 mcg/actuation aerosol inhaler 2 puff INHALATION BID 03/09/20 [History Confirmed 10/19/20] meclizine 25 mg tablet 25 mg PO DAILY PRN 03/09/20 [History Confirmed 10/19/20] insulin aspart U-100 100 unit/mL (3 mL) subcutaneous pen 20 unit SC TID #18 ml 06/04/20 [Rx Confirmed 10/19/20] insulin glargine 25 unit SC QAM 07/24/20 [History Confirmed 10/19/20] dulaglutide 1.5 mg SC TH 09/08/20 [History Confirmed 10/19/20] alprazolam 0.5 mg tablet 0.25 mg PO DAILY PRN tablet 09/14/20 [History Confirmed 10/19/20] aspirin 325 mg tablet 325 mg PO DAILY 09/14/20 [History Confirmed 10/19/20] fluoxetine 20 mg capsule 60 mg PO DAILY 90 Days #270 cap 09/14/20 [Rx Confirmed 10/19/20] prednisone 10 mg tablet 10 mg PO QDAY #30 tablet 09/29/20 [Rx Confirmed 10/19/20] lisinopril 5 mg tablet 5 mg PO DAILY #90 tablet 10/05/20 [Rx Confirmed 10/19/20] sodium chloride 1 gram tablet 1 g PO DAILY 30 Days #30 tablet 10/15/20 [Rx Confirmed 10/19/20] [facility] Medical History Abnormal cardiovascular stress test Angina pectoris Anxiety Atherosclerosis of [place] coronary artery of [place] heart without angina pectoris Carcinoma, lung Hiatal hernia Hyperlipidemia Presence of stent in coronary artery (~05/2011) Type II diabetes mellitus Surgical History H/O arthroscopic knee surgery H/O elbow surgery History of carpal tunnel surgery History of cholecystectomy History of lumbar surgery History of tubal ligation Presence of coronary angioplasty implant and graft Family History Father , Age 56 Myocardial infarction Heart disease COPD (chronic obstructive pulmonary disease) Mother COPD (chronic obstructive pulmonary disease) Heart disease Social History household members: spouse housing: house Smoking Status: Former smoker quit date: 06/19/13 pack-years: 35 Tobacco: How many years used: 37 how long ago did patient quit smokin years ago second hand exposure: No alcohol intake: never substance use type: does not use caffeine: Yes Type: carbonated beverages Number of servings: 2 and coffee Number of servings: 2 lizette/catholic: Zoroastrianism seatbelt use: always do you feel safe at home: Yes HPI HPI HPI: CAPRI CORONEL, is a 60 F who presents to the office today for HPI HPI Surgical H&P: Yes HPI: CAPRI CORONEL, is a 60 F who presents to the office today for lung cancer. The patient reports that she was recently diagnosed with right lung cancer. The patient needs port for chemotherapy treatment. She is on oxygen. ROS General General: Yes weight change and fatigue; No appetite, colon cancer, breast cancer or weakness HEENT HEENT: Yes swollen glands; No difficulty swallowing, eye injury, eye surgery or hoarseness Endo Endocrine: Yes diabetes mellitus; No thyroid disease, thyroid cancer, Hair loss, heat intolerance or cold intolerance Skin Skin: No rash or changing moles Musc Musculoskeletal: No back problems, arthritis, rheumatoid arthritis, gout or joint pain Cardio Cardiovascular: Yes heart disease, high blood pressure, heart attack and heart stent; No pacemaker, atrial fibrillation, palpitations, shortness of breat with exertion or chest pain Psych Psychiatric: Yes depression and anxiety; No hearing voices Resp Respiratory: Yes shortness of breath, No sleep apnea, No cough, Yes COPD, No asthma, No emphysema and No wheezing Gastro Gastrointestinal: No abdominal pain, No nausea or vomiting, No diarrhea, No constipation, No blood in stool, Yes acid reflux, No hemorrhoids, No ulcers, No gallbladder problem and No black,tarry stools Sebastián Hematologic: No blood thinners, No blood disorders, No bleeding, No anemia and No blood clots Neuro Neurologic: No weakness Exam Const General: cooperative Orientation: alert and oriented x3 Chest Chest palpation & inspection: normal inspection of the chest Resp Effort & Inspection: normal respiratory effort Auscultation: clear to auscultation bilaterally Cardio Rate: regular rate Rhythm: regular rhythm GI Inspection: non-distended Palpation: soft and nontender Psych Appearance: grossly normal Assessment and Plan Assessment and Plan (1) Small cell lung cancer, right middle lobe: Status: Acute Comment: Limited disease- stage ?T4 N2 M0 , Tumor infiltrating mediastinum. Discussed treatment with combined chemotherapy and Radiation therapy. Chemotherapy with Cisplatin and Etoposide. (2) Admission for fitting and adjustment of vascular catheter: Status: Acute Plan - Dr. James Esquivel MD: The patient has small cell lung cancer of the right lung. The patient requires chest port placement for treatment. I discussed the left chest port placement with her as well as the risks include but not limited to bleeding, infection, pneumothorax, line infection or DVT. The patient understands the risks as well to proceed. I will get her in this week for left chest port placement. James Esquivel MD Pager: [facility] [address] [place] [address], [address] [place] [address] Office: The patient was admitted to the hospital recently with shortness of breath and possible pneumonia. Patient feels much better and she is saturating well with no shortness of breath. Other than that there are no changes since the last exam.
[2020-10-28 14:41] LABS: Bedside Glucose 92 mg/dL (70-110)
[2020-10-28] MEDS: Cefazolin 2 GM in 0.9% Normal Saline 100 ML IV (14:48)
[2020-10-28] MEDS: Bupiv/Epi 0.25% 30 ML Vial (14:55)
--- NOTE | 2020-10-28 15:14 | RAD_ITS ---
STUDY: X-RAY CHEST REASON FOR EXAM: Female, 60 years old. Line placement -- in pacu TECHNIQUE: Single AP portable view of the chest. COMPARISON: Comparison is made with prior study dated 10/23/2020. FINDINGS: A left-sided Port-A-Cath has been placed. The tip is at the junction of the superior vena cava and right atrium. Stable increased markings at the lung bases. RAD/CXR for Line Placement IMPRESSION: The tip of the left-sided nellie catheter is at the junction of the superior vena cava and right atrium. Electronically Signed: Carlos Chou MD at 15:32 EDT , Service support ,
[2020-10-28 15:15] VITALS: BP 120/60; BP 129/66; PULSE 63; RESP 16; TEMP 36; O2SAT 92
--- NOTE | 2020-10-28 15:15 | PCM.OPRPT ---
Problems Associated Problem List Diagnoses (1) Small cell lung cancer, right middle lobe: (2) Admission for fitting and adjustment of vascular catheter: Report of Operation Date of Procedure: 10/28/20 Pre-Operative Diagnosis: Lung cancer need for vascular access for chemotherapy Post-Operative Diagnosis: Same Surgery/Procedure Performed:: Ultrasound and fluoroscopy guided left chest port placement utilizing left IJ Description of Procedure: After obtaining informed consent patient was brought back to the operating room MAC anesthesia was induced and the left chest and neck were prepped in normal sterile fashion. Ultrasound was used to evaluate both IJs and the left IJ was selected. Next, using a needle, the left IJ was accessed and a guidewire was passed on into the superior vena cava under fluoroscopy guidance. A small incision was made over the puncture site and the dilator introducer was placed over the guidewire. Next this was capped and the pocket was made for the port. 1% lidocaine with epinephrine was injected in the proposed port site. An incision was made with scalpel. Electrocautery was used to make a pocket under the skin and subcutaneous tissue. Hemostasis was obtained. Next, the catheter was tunneled up to the neck incision site and placed through the introducer. The peel-away introducer was removed and the position of the catheter was confirmed on fluoroscopy. Next, the catheter was trimmed and attached to the port with the locking device. Interrupted 2-0 Vicryl sutures were used to anchor the port to the chest wall and then the port was placed inside the pocket. The pocket was then flushed with saline and the port irrigated with saline. There was good blood return and the port flushed easily. Next, heparin was injected into the port. The skin was closed with subcutaneous interrupted 3-0 Vicryl sutures. A single 3-0 Vicryl sutures placed under the skin at the neck incision site. Steri-Strips were placed as well as op sites. Patient tolerated procedure well, was taken to PACU in stable condition. Chest x-ray will be obtained. Grafts/Implants Used: 8 [place] [employer] Admit VTE Documentation VTE Mechan Device Prophylaxis: SCD's
--- NOTE | 2020-10-28 15:16 | DCINST_ITS ---
Discharge Instructions Procedure Port-A-Cath Diet Discharge Diet: Light diet - advance as tolerated (Pain medication may cause nausea. You should typically eat light foods as you take your pain medication.) Activity Discharge Activity: Return to Normal Activity and May Shower (with your bandage in place in 1-2 days after surgery. DO NOT SHOWER WHEN YOUR PORT IS ACCESSED.) Dressing / Incision Call your doctor if your incision/area has: Continuous Slow Oozing, Sudden Increased Bleeding, Increased Pain/ Swelling, Increased Redness, Foul Smelling Discharge and Swelling at the incision site Call your doctor if you observe: Fever of 101 or Higher Remove Dressing in: 2 days Follow Up Care Please Follow Up With: James Esquivel MD When: as needed. Call [phone] with any concerns or questions. Test Results: Test results from this visit will be discussed in further detail at your follow-up appointment, if applicable. Discharge Plan Admission Attending Provider: James Esquivel Primary Care Provider: Sarah Duarte Discharge Orders/Prescriptions Prescriptions: No Action meclizine 25 mg tablet 25 mg PO DAILY PRN (Reason: Vertigo) RF: 0 prochlorperazine maleate 10 mg tablet 10 mg PO Q6H PRN (Reason: nausea and vomiting) Qty: 30 RF: 2 ondansetron 8 mg tablet,disintegrating 8 mg PO Q8H PRN (Reason: nausea and vomiting) Qty: 30 RF: 2 lidocaine-prilocaine 2.5-2.5 % cream 1 applic topical ONCE PRN (Reason: Port access ) 30 Days Qty: 30 RF: 2 nitroglycerin 0.4 MG tablet 0.4 mg SL Q5M PRN (Reason: Chest Pain) RF: 0 alprazolam 0.5 mg tablet 0.25 mg PO QHS PRN PRN (Reason: Sleep) RF: 0 buspirone 5 MG tablet 5 mg PO TID RF: 0 pantoprazole 20 MG tablet 40 mg PO DAILY RF: 0 metformin 1,000 MG tablet 1,000 mg PO BID RF: 0 albuterol sulfate 90 mcg/actuation HFA aerosol inhaler 2 puff INHALATION Q4H PRN PRN (Reason: Sob &/Or Wheezing) RF: 0 dicyclomine 10 MG capsule 10 - 20 mg PO TID PRN PRN (Reason: stomach) RF: 0 budesonide-formoterol 160-4.5 mcg/actuation HFA aerosol inhaler 2 puff INHALATION BID RF: 0 insulin glargine 100 UNIT/ML insulin pen 25 unit SC QAM RF: 0 Trulicity 1.5 mg/0.5 mL pen injector 1.5 mg SUBCUT FR RF: 0 sodium chloride 1 gram tablet 1 g PO DAILY RF: 0 fluoxetine 20 mg capsule 60 mg PO DAILY RF: 0 insulin aspart U-100 [Novolog Flexpen U-100 Insulin] 100 unit/mL (3 mL) insulin pen 20 unit SC TID RF: 0 prednisone 20 mg Tablet 40 mg PO DAILY@0800 Qty: 10 RF: 0 metoprolol tartrate 50 mg Tablet 50 mg PO BID Qty: 60 RF: 1 atorvastatin 40 mg tablet 40 mg PO QHS Qty: 90 RF: 3 lisinopril 5 mg tablet 5 mg PO DAILY Qty: 90 RF: 1 Other Ambulatory Orders: COVID 19 AG RAPID (RN COLLECT) (Routine) Timeframe: 20201020 Facility: [facility] - Location: Laboratory Ordered By: Dr. Phong Brower Referrals / Follow Up: Sarah Duarte MD [Primary Care Provider] - Disposition Disposition (needs filled in before D/C Order can be placed): Home, self care
[2020-10-28 15:20] VITALS: BP 120/60; BP 136/68; RESP 16; O2SAT 93
[2020-10-28 15:25] VITALS: BP 120/60; BP 135/60; PULSE 61; RESP 16; O2SAT 92
[2020-10-28 15:30] VITALS: BP 120/60; BP 125/61; PULSE 61; RESP 16; TEMP 36.2; O2SAT 93
[2020-10-28 16:24] VITALS: BP 120/60; BP 128/58; PULSE 59; RESP 20; TEMP 36.2; O2SAT 93
== END 2020-10-28 16:32 | disposition home or self-care (01) ==
LOC: SDC 13:08 → AC 13:10
PROVIDERS: PCP Internal Medicine; Referring Provider Surgery; Visit Provider Surgery
PROC: (CPT 36561; principal; 2020-10-28 14:25)
DX: Z45.2 Encounter for adjustment and management of vascular access device (principal); C34.2 Malignant neoplasm of middle lobe, bronchus or lung; I25.10 Atherosclerotic heart disease of native coronary artery without angina pectoris; E78.5 Hyperlipidemia, unspecified; K44.9 Diaphragmatic hernia without obstruction or gangrene; E11.9 Type 2 diabetes mellitus without complications; F41.9 Anxiety disorder, unspecified; F32.9 Major depressive disorder, single episode, unspecified; J44.9 Chronic obstructive pulmonary disease, unspecified; K21.9 Gastro-esophageal reflux disease without esophagitis; I10 Essential (primary) hypertension; G25.81 Restless legs syndrome; Z95.5 Presence of coronary angioplasty implant and graft; Z79.899 Other long term (current) drug therapy; Z79.4 Long term (current) use of insulin; Z79.82 Long term (current) use of aspirin; Z87.891 Personal history of nicotine dependence; Z99.81 Dependence on supplemental oxygen; Z79.52 Long term (current) use of systemic steroids; Z86.718 Personal history of other venous thrombosis and embolism
CPT/HCPCS: 00532; 36561; 71045; 77001; 82962; J7120; C1788

== ENCOUNTER 2020-11-17 18:45 | Inpatient (IN) | payer MEDICAID, SELFPAY ==
[2020-11-17] VITALS (11 sets, daily range): BP systolic 140–182; BP diastolic 67–90; PULSE 74–98; RESP 12–41; TEMP 35.6–37.1; O2SAT 92–99; BMI 35.0; BMI 35.9
[2020-11-17] MEDS: Ipratropium/Albuterol Sulfate 3 ML AMPUL.NEB INHALATION ×2 (19:12→23:37)
--- NOTE | 2020-11-17 19:13 | EKG12_ITS ---
Test Reason : DYSRHYTHMIA Blood Pressure : / mmHG Vent. Rate : 081 BPM Atrial Rate : 081 BPM P-R Int : 162 ms QRS Dur : 106 ms QT Int : 446 ms P-R-T Axes : 061 -63 075 degrees QTc Int : 518 ms Normal sinus rhythm Left anterior fascicular block Septal infarct , age undetermined Prolonged QT Abnormal ECG Confirmed by MYLES KAN, BRCOK ([id number]), news videotape editor JOSE GUADALUPE ALLEN ([id number]) on 11/19/2020 12:30:27 PM Referred By: CLARE Confirmed By:BROCK BUENO MD
--- NOTE | 2020-11-17 19:15 | EDS_ITS ---
HPI History of Present Illness Chief Complaint: Shortness of Breath Informant: patient Onset/Context/Timing Onset: Today Context: Gradual Onset Current Severity: Moderate Maximum Severity: Severe Narrative Narrative: Patient presents with increased shortness of breath throughout the day today. Patient last received chemotherapy for her small cell lung cancer 2 weeks ago. She went to see her oncologist today for blood work. Her potassium, magnesium, and calcium were all low. Patient states that she was given replacements of these in the office today. Since receiving that she has noted increased shortness of breath. She lasted her breathing treatments this morning. She is on 4 L of oxygen nasal cannula chronically. Patient denies chest pain. She denies having fever or chills, but does state the squad had measured a temperature on the way in. [facility] Medical History Abnormal cardiovascular stress test Angina pectoris Anxiety Atherosclerosis of [place] coronary artery of [place] heart without angina pectoris Cancer Carcinoma, lung Cardiac dysrhythmia COPD (chronic obstructive pulmonary disease) Coronary artery disease Depression DVT (deep venous thrombosis) Edema Electrolyte abnormality Former smoker GERD (gastroesophageal reflux disease) Hiatal hernia History of fatty infiltration of liver Hyperlipidemia Hypertension Injury of head and neck Loose, teeth Myocardial infarct Oxygen dependent Presence of stent in coronary artery (~05/2011) Restless legs Shortness of breath on exertion Syncope Type II diabetes mellitus Home Medications nitroglycerin 0.4 mg SL Q5M PRN 07/03/13 [History Last Taken 06/19/12 0.4] albuterol sulfate 2 puff INHALATION Q4H PRN PRN 11/20/19 [History Last Taken 10/28/20] buspirone 5 mg PO TID 11/20/19 [History Last Taken 10/28/20] dicyclomine 10 - 20 mg PO TID PRN PRN 11/20/19 [History Last Taken 10/27/20] metformin 1,000 mg PO BID 11/20/19 [History Last Taken 11/20/19] pantoprazole 40 mg PO DAILY 11/20/19 [History Last Taken 10/27/20] atorvastatin 40 mg tablet 40 mg PO QHS #90 tablet 12/23/19 [Rx Last Taken 10/27/20] budesonide-formoterol HFA 160 mcg-4.5 mcg/actuation aerosol inhaler 2 puff INHAL ATION BID 03/09/20 [History Last Taken 10/27/20] meclizine 25 mg tablet 25 mg PO DAILY PRN 03/09/20 [History Last Taken Unknown] insulin glargine 25 unit SC QAM 07/24/20 [History Last Taken Unknown] alprazolam 0.5 mg tablet 0.25 mg PO QHS PRN PRN tablet 09/14/20 [History Last Taken 10/27/20] lisinopril 5 mg tablet 5 mg PO DAILY #90 tablet 10/05/20 [Rx Last Taken 10/27/20] lidocaine-prilocaine 2.5 %-2.5 % topical cream 1 applic TOPICAL ONCE PRN 30 Days #30 g 10/19/20 [Rx Last Taken Unknown] ondansetron 8 mg disintegrating tablet 8 mg PO Q8H PRN #30 tab 10/19/20 [Rx Last Taken Unknown] prochlorperazine maleate 10 mg tablet 10 mg PO Q6H PRN #30 tab 10/19/20 [Rx Last Taken Unknown] Trulicity 1.5 mg SUBCUT FR 10/20/20 [History Last Taken Unknown] fluoxetine 60 mg PO DAILY 10/20/20 [History Last Taken 10/28/20] insulin aspart U-100 [Novolog Flexpen U-100 Insulin] 20 unit SC TID 10/20/20 [History Last Taken 10/27/20] sodium chloride 1 g PO DAILY 10/20/20 [History Last Taken Unknown] metoprolol tartrate 50 mg PO BID #60 tab 10/25/20 [Rx Last Taken 10/27/20] Allergy/AdvReac Type Severity Reaction Status Date / Time No Known Allergies Allergy Verified 11/17/20 18:55 Family History Father , Age 56 Myocardial infarction Heart disease COPD (chronic obstructive pulmonary disease) Mother COPD (chronic obstructive pulmonary disease) Heart disease Surgical History H/O arthroscopic knee surgery H/O elbow surgery History of carpal tunnel surgery History of cholecystectomy History of lumbar surgery History of tubal ligation Hx of biopsy Presence of coronary angioplasty implant and graft Social History household members: spouse housing: house current occupational status: retired Smoking Status: Former smoker quit date: 06/19/13 pack-years: 35 Tobacco: How many years used: 37 how long ago did patient quit smokin years ago second hand exposure: No alcohol intake: never substance use type: does not use caffeine: Yes Type: carbonated beverages Number of servings: 2 and coffee Number of servings: 2 eating out: 1-3 times/week during the past year weight has: increased > 10 lbs lizette/mormonism: Protestant seatbelt use: always do you feel safe at home: Yes ROS ROS ED Constitutional Constitutional ED: Denies chills or fever(s) Eyes Eyes: Denies change in vision ENT ENT ED: Denies sore throat Cardiovascular Cardiovascular: Denies chest pain Respiratory/Chest Respiratory/Chest: Reports dyspnea; Denies cough Gastrointestinal Gastrointestinal: Denies abdominal pain, diarrhea, nausea or vomiting Genitourinary Genitourinary ED: Denies dysuria Musculoskeletal Musculoskeletal: Denies back pain Integumentary Denies rash Neurologic Neurologic: Denies headache(s) or weakness Psychiatric Psychiatric: Denies anxiety or depression Endocrine Endocrinology: Denies polydipsia or polyuria Allergic/Immunologic Allergic/Immunologic ED: Denies urticaria EXAM Physical Exam Const Vital Signs: 11/17/20 18:46 11/17/20 18:53 11/17/20 19:13 Temperature 98.8 F Temperature Source Oral Pulse Rate 84 89 Respiratory Rate 41 H 36 H Respiratory Effort Short of Breath Labored Accessory Muscle Use Labored Accessory Muscle Use Respiratory Depth Deep Shallow Respiratory Pattern Tachypnea Tachypnea Blood Pressure 182/90 H Blood Pressure Mean 120 Pulse Ox 96 94 Oxygen Delivery Method Nasal Cannula Nasal Cannula Nasal Cannula Oxygen Flow Rate (L/min) 4 4 2 Fraction of Inspired Oxygen (FIO2) 11/17/20 19:57 11/17/20 20:16 Temperature Temperature Source Pulse Rate 88 86 Respiratory Rate 26 H 24 H Respiratory Effort Respiratory Depth Respiratory Pattern Tachypnea Blood Pressure 160/67 H Blood Pressure Mean 98 Pulse Ox 96 97 Oxygen Delivery Method Bi-pap Oxygen Flow Rate (L/min) Fraction of Inspired Oxygen (FIO2) 30 Positive well nourished and well developed General Appearance ED: well developed HEENT Reports normocephalic and head/scalp atraumatic Eyes PERRL and EOMs intact bilaterally Neck supple Chest Wall inspection of chest normal and palpation of chest normal Resp Resp Narrative: Tachypnea Auscultation: diminished lung sounds Cardio regular rate and regular rhythm GI normal to inspection, nondistended, normoactive bowel sounds Palpation: soft Extremity normal to inspection Extremity Narrative: 1+ bilateral lower extremity edema, symmetric General Extremety ED: Yes edema General Extremity: edema Neuro oriented x3 and no sensory deficits noted Sensorium / Orientation: alert Motor Exam: strength 5/5 throughout Psych mental status grossly normal Skin no rashes or lesions noted MDM MDM MDM Narrative Medical decision making narrative: Patient was placed on personnel clerk. Lab work, chest x-ray are ordered. Patient was given a DuoNeb treatment followed by albuterol. Following this she did have improved air movement, but was still quite tachypneic. She was placed on BiPAP for pressure support. Lab Data Attestation: I reviewed the patient's lab results. Labs: Laboratory Results - last 24 hr 11/17/20 11/17/20 11/17/20 19:30 19:30 19:30 WBC 2.1 L RBC 3.50 L Hgb 9.2 L Hct 28.8 L MCV 82.3 MCH 26.3 L MCHC 31.9 L RDW Std Deviation 42.9 RDW Coeff of [place] 15.0 H Plt Count 451 H MPV 8.8 Neut % (Auto) Not Reportable Absolute Neuts (auto) 0.5 L Absolute Lymphs (auto) 1.00 Total Counted 25 Neutrophils % (Manual) 20 L Band Neutrophils % 4 Lymphocytes % (Manual) 48 H Monocytes % (Manual) 28 H Diff Path Review May foll Sodium 130 L Potassium 3.1 L Chloride 92 L Carbon Dioxide 28.0 Anion Gap 10 BUN 5 L Creatinine 0.73 Estim Creat Clear Calc 69.00 Est GFR (MDRD) Af Amer 104 Est GFR (MDRD) Non-Af 86 BUN/Creatinine Ratio 6.8 L Glucose 184 H Calcium 6.8 L Magnesium 1.7 Total Bilirubin 0.30 AST 19 ALT 27 Alkaline Phosphatase 101 B-Natriuretic Peptide 307.0 H Total Protein 6.5 Albumin 2.9 L Globulin 3.6 Albumin/Globulin Ratio 0.8 L Radiography Chest X-Ray - ED: 1 View, Read by ED Physician and - (Pulmonary edema) Diagnostic Testing: Radiology Impression Chest X-Ray 11/17/20 19:44 IMPRESSION: Right-sided pleural effusion. There are stable perihilar opacities which may represent edema. at 2015 Reported and signed by: Praveen Salter MD Electronically Signed: Praveen Salter MD at 20:13 EDT Tel , Service support , EKG Initial EKG: Attestation: I personally reviewed and interpreted this EKG as follows: Interpretation: Sinus Rhythm (Sinus at 81 with no acute ischemia.) Treatment and Re-Evaluation Comments:: Labs are reviewed. Patient did receive supplemental magnesium, potassium, and calcium earlier today. Potassium and calcium are still low. She will be given oral potassium replacement. She is given 40 mg of IV Lasix. Patient's respiratory rate is much improved on BiPAP. I anticipate with diuresis will be able to transition her back to her normal 4 L quickly. I will speak with hospitalist regarding observation overnight and hopeful discharge tomorrow. Discharge Plan Triage Chief Complaint: Shortness of Breath Other Complaint: Cough ED Provider: Nancy Magdaleno Dx/Rx/DC Orders Clinical Impression: Pulmonary edema Prescriptions: No Action meclizine 25 mg tablet 25 mg PO DAILY PRN (Reason: Vertigo) RF: 0 prochlorperazine maleate 10 mg tablet 10 mg PO Q6H PRN (Reason: nausea and vomiting) Qty: 30 RF: 2 ondansetron 8 mg tablet,disintegrating 8 mg PO Q8H PRN (Reason: nausea and vomiting) Qty: 30 RF: 2 lidocaine-prilocaine 2.5-2.5 % cream 1 applic topical ONCE PRN (Reason: Port access ) 30 Days Qty: 30 RF: 2 nitroglycerin 0.4 MG tablet 0.4 mg SL Q5M PRN (Reason: Chest Pain) RF: 0 alprazolam 0.5 mg tablet 0.25 mg PO QHS PRN PRN (Reason: Sleep) RF: 0 buspirone 5 MG tablet 5 mg PO TID RF: 0 pantoprazole 20 MG tablet 40 mg PO DAILY RF: 0 metformin 1,000 MG tablet 1,000 mg PO BID RF: 0 albuterol sulfate 90 mcg/actuation HFA aerosol inhaler 2 puff INHALATION Q4H PRN PRN (Reason: Sob &/Or Wheezing) RF: 0 dicyclomine 10 MG capsule 10 - 20 mg PO TID PRN PRN (Reason: stomach) RF: 0 budesonide-formoterol 160-4.5 mcg/actuation HFA aerosol inhaler 2 puff INHALATION BID RF: 0 insulin glargine 100 UNIT/ML insulin pen 25 unit SC QAM RF: 0 Trulicity 1.5 mg/0.5 mL pen injector 1.5 mg SUBCUT FR RF: 0 sodium chloride 1 gram tablet 1 g PO DAILY RF: 0 fluoxetine 20 mg capsule 60 mg PO DAILY RF: 0 insulin aspart U-100 [Novolog Flexpen U-100 Insulin] 100 unit/mL (3 mL) insulin pen 20 unit SC TID RF: 0 metoprolol tartrate 50 mg Tablet 50 mg PO BID Qty: 60 RF: 1 atorvastatin 40 mg tablet 40 mg PO QHS Qty: 90 RF: 3 lisinopril 5 mg tablet 5 mg PO DAILY Qty: 90 RF: 1 Primary Care Provider: Sarah Duarte Referrals: Sarah Duarte MD [Primary Care Provider] - Disposition Disposition: Acute Care Hospital [facility]
[2020-11-17] MEDS: Albuterol 2.5 MG/3 ML VIAL.NEB. INHALATION ×2 (19:18→19:23)
[2020-11-17 19:41] LABS: Hematocrit 28.8 % (37-47); Hemoglobin 9.2 g/dL (12.0-15.0); Mean Corp Hgb Conc 31.9 g/dL (32-36); Mean Corpuscular Hgb 26.3 pg (27.0-32.0); Mean Corpuscular Volume 82.3 fL (81-99); Mean Platelet Vol. 8.8 fl (6.2-12.0); POSITIVE COUNT YES; POSITIVE DIFFERENTIAL YES; POSITIVE MORPHOLOGY YES; Platelet Count 451 K/mm3 (150-450); RBC Distribution Width SD 42.9 fl (35.1-43.9); White Blood Count 2.1 K/mm3 (4.4-11.0)
[2020-11-17 19:44] LABS: Differential Indicated MANUAL DIFF
--- NOTE | 2020-11-17 19:44 | RAD_ITS ---
EXAM: XR CHEST, 1 VIEW : 1960 CLINICAL INDICATION: sob TECHNIQUE: Frontal view of the chest. This report was created using [employer] report generation technology. COMPARISON: 10/28/2020 FINDINGS: LUNGS AND PLEURAL SPACES: There is a small right-sided effusion. No pneumothorax. HEART: Unremarkable. Cardiac silhouette not enlarged. MEDIASTINUM: Central airways and mediastinal contour are unremarkable. BONES/JOINTS: Unremarkable. SOFT TISSUES: There are perihilar opacities which may represent edema or vasculature. TUBES, LINES AND DEVICES: Left-sided Port-A-Cath is in stable position. RAD/Chest 1 View (Portable) IMPRESSION: Right-sided pleural effusion. There are stable perihilar opacities which may represent edema. at 2015 Reported and signed by: Praveen Salter MD Electronically Signed: Praveen Salter MD at 20:13 EDT Tel , Service support ,
[2020-11-17 19:58] LABS: ALB/GLOB Ratio 0.8 RATIO (0.9-2.4); AST(SGOT) 19 U/L (15-37); Alanine Aminotransfer ALT/SGPT 27 U/L (13-56); Albumin, Serum 2.9 g/dL (3.2-5.0); Alkaline Phosphatase 101 U/L (45-117); Anion Gap 10 (5-15); BUN 5 mg/dL (7-18); BUN/Creat Ratio 6.8 RATIO (10-20); Calcium,Total 6.8 mg/dL (8.5-10.1); Chloride 92 mmol/L (98-107); Creatinine, Serum 0.73 mg/dL (0.55-1.02); EST Glomerular Filtration Rate 86 mL/min (>60); Est Glom Filt Rate - Afr Amer 104 mL/min (>60); Globulin 3.6 g/dL (2.2-4.2); Glucose 184 mg/dL (74-106); Magnesium 1.7 mg/dL (1.6-2.6); Potassium 3.1 mmol/L (3.5-5.1); Protein, Total 6.5 g/dL (6.4-8.2); Sodium Level 130 mmol/L (136-145)
[2020-11-17 20:10] LABS: Lymphocyte 48 % (19-41); Monocyte 28 % (0-10); Neutrophil-Band 4 % (0-5); Neutrophil-Segmented 20 % (47-70); Total Cells Counted 25 (MANUAL DIFF)
[2020-11-17 20:12] LABS: Absolute Neutrophil Count 0.5 X10^3/uL (2.0-7.7)
--- NOTE | 2020-11-17 20:16 | CPS ---
x2 Albuterol given to pt. in ER as well
[2020-11-17] MEDS: Fluticasone 0.05% 1 SPRAY NASAL.SRY NASAL (20:17)
--- NOTE | 2020-11-17 20:43 | ED.RN ---
DAUGHTER UPDATED ON PATIENT CONDITION AND ADMISSION STATUS AT THIS TIME
[2020-11-17] MEDS: Furosemide 40 MG/4 ML Vial IV (22:05)
[2020-11-17] MEDS: Potassium Chloride Oral Tablet 20 MEQ 40 MEQ PO (22:05)
--- NOTE | 2020-11-17 22:54 | HP.PCM.HOS_ITS ---
HPI - General General Date of Admission: 11/17/20 Date of Service: 11/17/20 Chief Complaint: Shortness of breath HPI Narrative CAPRI CORONEL, is a 60 F who presents to the emergency room at [facility] with a chief complaint of shortness of breath which started this afternoon after she received fluids due to low calcium detected on outpatient labs. Patient has a history of small cell lung cancer which was diagnosed in [facility] and is currently under treatment by Dr. Gaspar. Patient has a history of COPD and is on 4 L of oxygen via nasal cannula at baseline. Patient denied any chest pain to this examiner, work-up in the emergency room included a chest x-ray which showed bilateral infiltrates suggestive of pulmonary edema, patient's beta natruretic peptide was elevated, she had to be placed on BiPAP to maintain her O2 sat. Patient was given IV Lasix with improvement of her respiratory status. Labs revealed a low potassium at 3.1, sodium was low at 130, and patient's CBC showed a white blood cell count of 2.1, hemoglobin of 9.2, and platelet count of 451,000. Patient's beta natruretic peptide was elevated at 307. Patient will be admitted to PCU for acute on chronic hypoxic respiratory failure and diastolic congestive heart failure, she will be given IV Lasix and reevaluated tomorrow patient's last echocardiogram was performed last month, it showed an intermediate ejection fraction with mild pulmonary hypertension. [facility] Medical History Abnormal cardiovascular stress test Angina pectoris Anxiety Atherosclerosis of [place] coronary artery of [place] heart without angina pectoris Cancer Carcinoma, lung Cardiac dysrhythmia COPD (chronic obstructive pulmonary disease) Coronary artery disease Depression DVT (deep venous thrombosis) Edema Electrolyte abnormality Former smoker GERD (gastroesophageal reflux disease) Hiatal hernia History of fatty infiltration of liver Hyperlipidemia Hypertension Injury of head and neck Loose, teeth Myocardial infarct Oxygen dependent Presence of stent in coronary artery (~05/2011) Restless legs Shortness of breath on exertion Syncope Type II diabetes mellitus Home Medications nitroglycerin 0.4 mg SL Q5M PRN 07/03/13 [History Last Taken 06/19/12 0.4] albuterol sulfate 2 puff INHALATION Q4H PRN PRN 11/20/19 [History Last Taken 10/28/20] buspirone 5 mg PO TID 11/20/19 [History Last Taken 10/28/20] dicyclomine 10 - 20 mg PO TID PRN PRN 11/20/19 [History Last Taken 10/27/20] metformin 1,000 mg PO BID 11/20/19 [History Last Taken 11/20/19] pantoprazole 40 mg PO DAILY 11/20/19 [History Last Taken 10/27/20] atorvastatin 40 mg tablet 40 mg PO QHS #90 tablet 12/23/19 [Rx Last Taken 10/27/20] budesonide-formoterol HFA 160 mcg-4.5 mcg/actuation aerosol inhaler 2 puff INHALATION BID 03/09/20 [History Last Taken 10/27/20] meclizine 25 mg tablet 25 mg PO DAILY PRN 03/09/20 [History Last Taken Unknown] insulin glargine 25 unit SC QAM 07/24/20 [History Last Taken Unknown] alprazolam 0.5 mg tablet 0.25 mg PO QHS PRN PRN tablet 09/14/20 [History Last Taken 10/27/20] lisinopril 5 mg tablet 5 mg PO DAILY #90 tablet 10/05/20 [Rx Last Taken 10/27/20] lidocaine-prilocaine 2.5 %-2.5 % topical cream 1 applic TOPICAL ONCE PRN 30 Days #30 g 10/19/20 [Rx Last Taken Unknown] ondansetron 8 mg disintegrating tablet 8 mg PO Q8H PRN #30 tab 10/19/20 [Rx Last Taken Unknown] prochlorperazine maleate 10 mg tablet 10 mg PO Q6H PRN #30 tab 10/19/20 [Rx Last Taken Unknown] Trulicity 1.5 mg SUBCUT FR 10/20/20 [History Last Taken Unknown] fluoxetine 60 mg PO DAILY 10/20/20 [History Last Taken 10/28/20] insulin aspart U-100 [Novolog Flexpen U-100 Insulin] 20 unit SC TID 10/20/20 [History Last Taken 10/27/20] sodium chloride 1 g PO DAILY 10/20/20 [History Last Taken Unknown] metoprolol tartrate 50 mg PO BID #60 tab 10/25/20 [Rx Last Taken 10/27/20] Allergy/AdvReac Type Severity Reaction Status Date / Time No Known Allergies Allergy Verified 11/17/20 18:55 Family History Father , Age 56 Myocardial infarction Heart disease COPD (chronic obstructive pulmonary disease) Mother COPD (chronic obstructive pulmonary disease) Heart disease Surgical History H/O arthroscopic knee surgery H/O elbow surgery History of carpal tunnel surgery History of cholecystectomy History of lumbar surgery History of tubal ligation Hx of biopsy Presence of coronary angioplasty implant and graft Social History household members: spouse housing: house current occupational status: retired Smoking Status: Former smoker quit date: 06/19/13 pack-years: 35 Tobacco: How many years used: 37 how long ago did patient quit smokin years ago second hand exposure: No alcohol intake: never substance use type: does not use caffeine: Yes Type: carbonated beverages Number of servings: 2 and coffee Num marge of servings: 2 eating out: 1-3 times/week during the past year weight has: increased > 10 lbs lizette/jain: Moravian seatbelt use: always do you feel safe at home: Yes ROS Constitutional Constitutional: Denies anorexia, change in weight, fever(s), night sweats or weakness Eyes Eyes: Denies blurry vision, change in vision, discharge from eye(s) or eye pain Cardiovascular Cardiovascular: Reports dyspnea on exertion; Denies chest pain, claudication, edema or palpitations Respiratory/Chest Respiratory/Chest: Reports dyspnea, shortness of breath at rest and shortness of breath with exertion; Denies cough or hemoptysis Gastrointestinal Gastrointestinal: Denies abdominal pain, constipation, diarrhea, hematemesis, hematochezia, melena, nausea or vomiting Genitourinary Genitourinary: Denies dysuria, hematuria, urinary frequency, urinary hesitancy, urinary incontinence or urinary urgency Musculoskeletal Musculoskeletal: Denies back pain, joint pain, joint stiffness, joint swelling, myalgias or neck pain Neurologic Neurologic: Denies abnormal gait, abnormal speech, dizziness, focal weakness, headache(s), loss of vision, numbness, other visual disturbances, paresthesias, syncope or tingling Psychiatric Psychiatric: Denies anxiety, cognitive impairment, depression, irritability, mood swings or suicidal ideation Endocrine Endocrinology: Denies change in body appearance, cold intolerance, excessive sweating, heat intolerance, polydipsia or polyuria Hematologic/Lymphatic Hematologic/Lymphatic: Denies none, anemia, easy bleeding, easy bruising or lymphadenopathy Allergic/Immunologic Allergic/Immunologic: Denies rhinitis, urticaria, eczemia or asthma Vital Signs Vital Signs Vital Signs: 11/17/20 18:46 11/17/20 18:53 11/17/20 19:13 Temperature 98.8 F Temperature Source Oral Pulse Rate 84 89 Respiratory Rate 41 H 36 H Respiratory Effort Short of Breath Labored Accessory Muscle Use Labored Accessory Muscle Use Respiratory Depth Deep Shallow Respiratory Pattern Tachypnea Tachypnea Blood Pressure 182/90 H Blood Pressure Mean 120 Blood Pressure Source Blood Pressure Position Blood Pressure Location Pulse Ox 96 94 Oxygen Delivery Method Nasal Cannula Nasal Cannula Nasal Cannula Oxygen Flow Rate (L/min) 4 4 2 Fraction of Inspired Oxygen (FIO2) 11/17/20 19:57 11/17/20 20:16 11/17/20 22:00 Temperature Temperature Source Pulse Rate 88 86 78 Respiratory Rate 26 H 24 H 18 Respiratory Effort Respiratory Depth Respiratory Pattern Tachypnea Blood Pressure 160/67 H 140/80 H Blood Pressure Mean 98 100 Blood Pressure Source Blood Pressure Position Blood Pressure Location Pulse Ox 96 97 93 Oxygen Delivery Method Bi-pap Nasal Cannula Oxygen Flow Rate (L/min) 3 Fraction of Inspired Oxygen (FIO2) 30 11/17/20 22:11 11/17/20 22:37 Temperature 96.1 F L 96.9 F L Temperature Source Temporal Temporal Pulse Rate 88 86 Respiratory Rate 16 20 H Respiratory Effort Respiratory Depth Respiratory Pattern Blood Pressure 150/89 H 172/72 H Blood Pressure Mean 109 105 Blood Pressure Source Monitor Blood Pressure Position Sitting Blood Pressure Location Right Arm Pulse Ox 92 95 Oxygen Delivery Method Nasal Cannula Nasal Cannula Oxygen Flow Rate (L/min) 3 3 Fraction of Inspired Oxygen (FIO2) Weight Weight: 92.533 kg Body Mass Index (BMI) 35.0 Physical Exam Const alert and oriented x3 Constitutional Narrative: Patient exhibits mild respiratory distress and is presently on nasal cannula oxygen General Appearance: cooperative HEENT normocephalic, head/scalp atraumatic, hearing grossly normal bilaterally and moist oral mucous membranes Eyes PERRL, EOMs intact bilaterally and conjunctivae normal Neck no lymphadenopathy, supple, no JVD and no carotid bruits Resp normal respiratory effort, no retractions and no use of accessory muscles Resp Narrative: Breath sounds are distant bilaterally, no wheezing, rales, or rhonchi were noted Cardio regular rate, regular rhythm, S1 normal heart sound, S2 normal heart sound, no murmurs and no rub GI normal to inspection, nondistended, normoactive bowel sounds, soft to palpation, non-tender and non-distended Extremity normal to inspection, full ROM and no clubbing, cyanosis or edema Skin no rashes or lesions noted, skin turgor normal and no jaundice Neuro oriented x3, CN's II-XII intact bilaterally and no focal motor deficits Sensorium / Orientation: awake and alert Speech: speech normal Psych affect normal Lab / Micro Data Result Diagrams: 11/17/20 19:30 11/17/20 19:30 Labs: Laboratory Results - last 24 hr 11/17/20 11/17/20 11/17/20 19:30 19:30 19:30 WBC 2.1 L RBC 3.50 L Hgb 9.2 L Hct 28.8 L MCV 82.3 MCH 26.3 L MCHC 31.9 L RDW Std Deviation 42.9 RDW Coeff of [place] 15.0 H Plt Count 451 H MPV 8.8 Neut % (Auto) Not Reportable Absolute Neuts (auto) 0.5 L Absolute Lymphs (auto) 1.00 Total Counted 25 Neutrophils % (Manual) 20 L Band Neutrophils % 4 Lymphocytes % (Manual) 48 H Monocytes % (Manual) 28 H Diff Path Review May foll Sodium 130 L Potassium 3.1 L Chloride 92 L Carbon Dioxide 28.0 Anion Gap 10 BUN 5 L Creatinine 0.73 Estim Creat Clear Calc 69.00 Est GFR (MDRD) Af Amer 104 Est GFR (MDRD) Non-Af 86 BUN/Creatinine Ratio 6.8 L Glucose 184 H Calcium 6.8 L Magnesium 1.7 Total Bilirubin 0.30 AST 19 ALT 27 Alkaline Phosphatase 101 B-Natriuretic Peptide 307.0 H Total Protein 6.5 Albumin 2.9 L Globulin 3.6 Albumin/Globulin Ratio 0.8 L Radiology Impression Chest X-Ray 11/17/20 19:44 IMPRESSION: Right-sided pleural effusion. There are stable perihilar opacities which may represent edema. at 2015 Reported and signed by: Praveen Salter MD Electronically Signed: Praveen Salter MD at 20:13 EDT Tel , Service support , Assessment & Plan Assessment/Plan (1) Pulmonary edema: PLAN: 1. Acute on chronic hypoxic respiratory failure secondary to acute diastolic congestive heart failure-patient will be admitted to PCU, she will be given IV Lasix, I will not repeat her echocardiogram as it has been done last month. I do not feel the patient needs any cardiac enzymes performed at this time, she has no complaints of any chest pain. #2 acute diastolic congestive heart failure-most probably secondary to fluid overload, patient will receive no additional fluids at this time, IV Lasix will be given #3 chronic obstructive pulmonary disease-duo nebs will be ordered #4 small cell lung cancer-diagnosed July 2020 #5 hypokalemia-labs will be rechecked tomorrow morning #6 hypocalcemia-etiology unclear, this will need rechecked #7 atherosclerotic heart disease #8 anemia secondary to chronic disease (lung cancer) #9 neutropenia-secondary to chemotherapy for small cell lung cancer #10 hyponatremia-possibly secondary to small cell lung cancer
[2020-11-17] MEDS: busPIRone 5 MG Tablet PO (23:40)
[2020-11-18] VITALS (17 sets, daily range): BP systolic 141–157; BP diastolic 62–76; PULSE 69–152; RESP 16–24; TEMP 36.8–37.3; O2SAT 94–97
[2020-11-18] MEDS: ALPRAZolam 0.25 MG Tablet PO ×2 (00:17→21:26)
[2020-11-18] MEDS: Acetaminophen 325 MG Tablet 650 MG PO ×4 (00:17→21:26)
[2020-11-18 00:33] LABS: Hypochromasia 1+; Platelet Estimate ADEQUATE (ADEQ); Red Cell Morphology N CYTIC NORMAL (NORM C&C)
[2020-11-18] MEDS: busPIRone 5 MG Tablet PO ×3 (05:02→21:27)
[2020-11-18 06:22] LABS: Hematocrit 27.3 % (37-47); Mean Corpuscular Hgb 26.9 pg (27.0-32.0); Mean Corpuscular Volume 81.7 fL (81-99); Mean Platelet Vol. 9.2 fl (6.2-12.0); POSITIVE COUNT YES; POSITIVE DIFFERENTIAL YES; POSITIVE MORPHOLOGY YES; Platelet Count 506 K/mm3 (150-450); RBC Distribution Width CV 15.2 % (11.6-14.6); RBC Distribution Width SD 43.2 fl (35.1-43.9); Red Blood Count 3.34 M/mm3 (4.2-5.4); White Blood Count 2.5 K/mm3 (4.4-11.0)
[2020-11-18 06:23] LABS: Differential Indicated MANUAL DIFF
[2020-11-18 06:44] LABS: Anion Gap 10 (5-15); BUN 4 mg/dL (7-18); BUN/Creat Ratio 5.3 RATIO (10-20); Calcium,Total 6.9 mg/dL (8.5-10.1); Chloride 89 mmol/L (98-107); Creatinine, Serum 0.75 mg/dL (0.55-1.02); EST Glomerular Filtration Rate 83 mL/min (>60); Est Glom Filt Rate - Afr Amer 101 mL/min (>60); Estimated Creatinine Clearance 67.16 ml/min; Glucose 162 mg/dL (74-106); Potassium 2.8 mmol/L (3.5-5.1); Sodium Level 131 mmol/L (136-145)
[2020-11-18 06:45] LABS: Absolute Neutrophil Count 0.8 X10^3/uL (2.0-7.7); Eosinophil 2 % (0-5); Lymphocyte 44 % (19-41); Metamyelocyte 10 % (0-1); Monocyte 12 % (0-10); Neutrophil-Band 13 % (0-5); Neutrophil-Segmented 19 % (47-70); Total Cells Counted 100 (MANUAL DIFF)
[2020-11-18 06:46] LABS: Hypochromasia 1+; Platelet Estimate SLT INC (ADEQ); Red Cell Morphology N CYTIC NORMAL (NORM C&C)
[2020-11-18] MEDS: Ipratropium/Albuterol Sulfate 3 ML AMPUL.NEB INHALATION ×2 (06:52→19:25)
[2020-11-18 08:21] LABS: Bedside Glucose 190 mg/dL (70-110)
[2020-11-18] MEDS: Insulin Lispro 100 UNIT/ML INSULN.PEN 20 UNIT SC ×2 (08:26→16:23)
[2020-11-18] MEDS: Insulin Lispro 100 UNIT/ML INSULN.PEN SC ×2 (08:27→16:23)
[2020-11-18] MEDS: Potassium Chloride Oral Tablet 20 MEQ PO ×2 (08:28→16:23)
[2020-11-18] MEDS: metFORMIN HCl 1,000 MG Tablet 1000 MG PO ×2 (08:28→16:22)
[2020-11-18] MEDS: Metoprolol Tartrate 50 MG Tablet PO ×2 (08:54→21:26)
[2020-11-18] MEDS: Sodium Chloride 1 GM Tablet PO (08:54)
[2020-11-18] MEDS: Pantoprazole Sodium 40 MG Tablet PO (08:54)
[2020-11-18] MEDS: Lisinopril 5 MG Tablet PO (08:54)
[2020-11-18] MEDS: FLUoxetine 20 MG Capsule 60 MG PO (08:54)
[2020-11-18] MEDS: Enoxaparin 40 MG/0.4 ML Syringe SC (08:54)
[2020-11-18] MEDS: Potassium Chloride Oral Tablet 20 MEQ 40 MEQ PO (08:55)
[2020-11-18] MEDS: Furosemide 40 MG/4 ML Vial IV ×2 (08:55→18:00)
--- NOTE | 2020-11-18 09:30 | CASEMGMT ---
RN CM HOME ADVISOR CM to room to meet with patient for initial transition planning/care coordination assessment. MACK WOOD introduced self and role at [facility]. Pt voices understanding and consents to assessment at this time. Pt sitting up in recliner chair in room in no distress at this time. Pt is A/O at this time and answers all questions appropriately. Care providers, pharmacy, and demographics verified/updated at this time. PCP: Dr Duarte Specialists: Dr Gaspar-oncology, Dr Rivera--cardiology, Dr Pretty-pulmonology, Dr Rubio-endocrinology Preferred Pharmacy: [facility] Retail Insurance: [facility] Community Plan/CRYS Prescription Benefit: Yes Living Will/HPOA: Has both LW and Healthcare POA, who is her Sig other, Austin Hidalgo, as primary POA. Daughter, Harriet, 1st alt POA. Son, Bradley, 2nd alt POA. Copies of both are on e-file @ [facility]. LNOK: Has 4 adult children. Sig other, Austin, is POA. Living Arrangements: Lives w/Austin. Independent w/ADL's. Austin does most IADL's. Transportation: Pt states drives self and states no transportation concerns at this time. Austin also drives DME: States has the following DME: O2 @ 3-4 L/M thru [facility] [employer]. Has both concentrator and portable O2 tanks. Pt states Austin will bring in portable tank for pt to go home on @ d/ischarge. Also has/uses shower chair, W/C, and glucometer. Pt also has walker and canes available, but does not use. Pt states no need for further DME at this time. HHC/SNF: No history of either. Denies need for HHC or OP therapy. Pt wishes to return home and states has no concerns with going home at time of discharge. CM to follow for any discharge planning/needs. Pt voices no concerns/needs at this time. Advised pt to ask for CM if any questions/concerns/needs arise. Voices understanding. PLAN: Home w/support of sig other and family and discharge plans in place. Holli HERNANDEZ RN, CM
--- NOTE | 2020-11-18 11:13 | PN.HOSP_ITS ---
Documented by User: Trey DALY 11/18/20 12:01 Subjective Subjective Patient is a 60-year-old female who is comfortably resting in chair, alert and oriented x3. Patient reports mild shortness of breath, although reports that this has improved from admission. Denies chest pain, palpitations, sputum pro duction, hemoptysis, fever, chills, N/V/D. Objective Data Objective Data Vital Signs: Vital Signs Temp Pulse Resp BP Pulse Ox 99.1 F 81 16 157/69 H 96 11/18/20 08:38 11/18/20 08:54 11/18/20 08:38 11/18/20 08:54 11/18/20 08:38 Oxygen Flow Rate (L/min) 4 Oxygen Delivery Method Nasal Cannula Weight: 204 lb 0.005 oz Body Mass Index (BMI) 35.0 Intake & Output: Intake and Output for Last 24 Hours 11/16/20 11/17/20 11/18/20 23:59 23:59 23:59 Intake Total 220 / 220 120 / 120 Balance 220 / 220 120 / 120 Lab / Micro Data Result Diagrams: 11/18/20 05:44 11/18/20 05:44 Labs: Laboratory Results - last 24 hr 11/17/20 11/17/20 11/17/20 19:30 19:30 19:30 WBC 2.1 L RBC 3.50 L Hgb 9.2 L Hct 28.8 L MCV 82.3 MCH 26.3 L MCHC 31.9 L RDW Std Deviation 42.9 RDW Coeff of [place] 15.0 H Plt Count 451 H MPV 8.8 Neut % (Auto) Not Reportable Absolute Neuts (auto) 0.5 L Absolute Lymphs (auto) 1.00 Total Counted 25 Neutrophils % (Manual) 20 L Band Neutrophils % 4 Lymphocytes % (Manual) 48 H Monocytes % (Manual) 28 H Eosinophils % (Manual) Metamyelocytes % Diff Path Review May foll Platelet Estimate ADEQUATE RBC Morphology N CYTIC Hypochromasia 1+ Sodium 130 L Potassium 3.1 L Chloride 92 L Carbon Dioxide 28.0 Anion Gap 10 BUN 5 L Creatinine 0.73 Estim Creat Clear Calc 69.00 Est GFR (MDRD) Af Amer 104 Est GFR (MDRD) Non-Af 86 BUN/Creatinine Ratio 6.8 L Glucose 184 H Calcium 6.8 L Magnesium 1.7 Total Bilirubin 0.30 AST 19 ALT 27 Alkaline Phosphatase 101 B-Natriuretic Peptide 307.0 H Total Protein 6.5 Albumin 2.9 L Globulin 3.6 Albumin/Globulin Ratio 0.8 L POC Glucose 11/18/20 11/18/20 11/18/20 05:44 05:44 08:16 WBC 2.5 L RBC 3.34 L Hgb 9.0 L Hct 27.3 L MCV 81.7 MCH 26.9 L MCHC 33.0 RDW Std Deviation 43.2 RDW Coeff of [place] 15.2 H Plt Count 506 H MPV 9.2 Neut % (Auto) Not Reportable Absolute Neuts (auto) 0.8 L Absolute Lymphs (auto) 1.10 Total Counted 100 Neutrophils % (Manual) 19 L Band Neutrophils % 13 H Lymphocytes % (Manual) 44 H Monocytes % (Manual) 12 H Eosinophils % (Manual) 2 Metamyelocytes % 10 H Diff Path Review May foll Platelet Estimate SLT INC RBC Morphology N CYTIC Hypochromasia 1+ Sodium 131 L Potassium 2.8 L Chloride 89 L Carbon Dioxide 32.0 Anion Gap 10 BUN 4 L Creatinine 0.75 Estim Creat Clear Calc 67.16 Est GFR (MDRD) Af Amer 101 Est GFR (MDRD) Non-Af 83 BUN/Creatinine Ratio 5.3 L Glucose 162 H Calcium 6.9 L Magnesium Total Bilirubin AST ALT Alkaline Phosphatase B-Natriuretic Peptide Total Protein Albumin Globulin Albumin/Globulin Ratio POC Glucose 190 H Radiography Diagnostic Testing: Radiology Impression Chest X-Ray 11/17/20 19:44 IMPRESSION: Right-sided pleural effusion. There are stable perihilar opacities which may represent edema. at 2015 Reported and signed by: Praveen Salter MD Electronically Signed: Praveen Salter MD at 20:13 EDT Tel , Service support , Physical Exam Narrative See subjective for patient presentation. Const alert, oriented x3 and no apparent distress HEENT head/scalp atraumatic, moist oral mucous membranes and oropharynx normal Head and Scalp: normocephalic Eyes PERRL, EOMs intact bilaterally and conjunctivae normal Neck no lymphadenopathy, supple and no JVD Resp Resp Narrative: Patient reports mild SOB. Effort and Inspection: labored Auscultation: diminished lung sounds Cardio regular rate, regular rhythm, no murmurs and no JVD GI normal to inspection, nondistended, normoactive bowel sounds, soft to palpation, non-tender and non-distended Extremity normal to inspection, full ROM and no clubbing, cyanosis or edema Skin no rashes or lesions noted, no wounds, skin turgor normal and no jaundice Neuro CN's II-XII intact bilaterally Psych affect normal Assessment & Plan Assessment/Plan (1) Pulmonary edema: (2) Electrolyte abnormality: (3) Small cell lung cancer, right middle lobe: (4) Acute and chronic respiratory failure with hypoxia: (5) Atherosclerosis of [place] coronary artery of [place] heart without angina pectoris: (6) Anemia: (7) Neutropenia: PLAN: See subjective for patient presentation. Patient lives at home with who assists with her care. Identifies no health care needs at home, would like to return home at discharge. Given patient's continuing shortness of breath, we will continue with diuresis and continue to monitor. Anticipate discharge tomorrow. 1) Acute on chronic hypoxic respiratory failure secondary to acute mixed systolic/diastolic CHF. Echocardiogram completed on 10/20/2020 demonstrated mild segmental systolic dysfunction, an estimated EF of 60% and RVSP of 44 mmHg and did demonstrate some evidence of diastolic dysfunction. Patient satting at 96% on 3 L via nasal cannula, patient baseline 3 to 4 L at home. Home medication regimen includes supplemental oxygen, lisinopril, metoprolol. Patient not on Lasix at home. Plan; remain admitted, continue Lasix 40 mg IV twice daily, daily weights, monitor I's and O's. 2) COPD Continue scheduled duo nebs and Ventolin as needed. 3) Small cell lung cancer Diagnosed July 2020, follows with outpatient oncology. 4) Hypokalemia Currently 2.8. Plan; potassium replacement ordered, monitor BMP. 5) Hyponatremia Currently 131, possibly secondary to small cell lung cancer. Plan; continue to monitor BMP. 6) Hypocalcemia Patient complaining of carpopedal spasms and cramps as well as lower extremity jitteriness. Plan; calcium replacement ordered, monitor BMP. 7) Neutropenia Likely secondary to chemotherapy for #3. Plan; continue to monitor. 8) Anemia Likely secondary to #3. DVT prophylaxis - Lovenox Patient seen by Trey De Jesus PA-C, under the supervision of Dr. Rojas. Documented by User: Dr. Andre Rojas MD 11/18/20 13:54 Objective Data Lab / Micro Data Result Diagrams: 11/18/20 05:44 11/18/20 05:44 Assessment & Plan Addt'l Comments This patient was seen in conjunction with Trey De Jesus PA-C. I have independently interviewed and examined the patient and reviewed pertinent historical, laboratory, and other data. Please refer to Trey De Jesus PA-C's note for details of this patient's presentation, findings, and recommendations. I have reviewed Trey De Jesus PA-C's note and concur with documented findings. In brief, patient is a [age] -year-oldM/F admitted with multiple comorbidities who presented with progressive shortness of breath and assessment of acute congestive heart failure made admitted to monitored bed for further management Physical Examination: GENERAL: cooperative HEENT: Atraumatic; EYES; Anicteric, Normal Conjunctiva NECK; supple, normal thyroid, RESPIRATORY: Diminished to auscultation CARDIOVASCULAR: Regular S1 S2, GI: soft, normoactive bowel sounds, : No Renal angle tenderness; EXTREMITIES: No edema, no clubbing, MUSCULOSKELETAL: no muscle waisting NEURO: Awake; no lateralizing signs. SKIN: No Rash PSYCH; Flat affect Assessment: 1. Acute congestive heart failure 2. Small cell carcinoma involving the right middle lobe 3. Essential hypertension 4. Dyslipidemia 5. Chronic hypoxic respiratory failure on baseline home oxygen 6. Coronary artery disease with previous PCI 7. Previous history of DVT 8. COPD 9. Diabetes mellitus type 2 10. Obesity with BMI of 35 11. Anemia secondary to anemia of chronic disorder 12. Hyponatremia 13. Hypokalemia 14. Hypomagnesemia 15. Hypocalcemia Recommendations: 1. I have discussed the results of my overview and impressions with the patient 2. Options for management were reviewed Visit Charges Inpatient E&M: 42493 Subs Hosp L3
[2020-11-18 12:35] LABS: Bedside Glucose 129 mg/dL (70-110)
[2020-11-18 13:43] LABS: Pathologist Review Reviewed
--- NOTE | 2020-11-18 13:45 | EKG12_ITS ---
Test Reason : ARRYTHMIA Blood Pressure : / mmHG Vent. Rate : 079 BPM Atrial Rate : 079 BPM P-R Int : 160 ms QRS Dur : 102 ms QT Int : 460 ms P-R-T Axes : 054 -67 032 degrees QTc Int : 527 ms Sinus rhythm with Premature supraventricular complexes Left anterior fascicular block Anteroseptal infarct , age undetermined Prolonged QT Abnormal ECG When compared with ECG of 17-NOV-2020 18:52, MANUAL COMPARISON REQUIRED, DATA IS UNCONFIRMED Confirmed by OMID KAN, SHAWANDA ([id number]), legal editor JOSE GUADALUPE ALLEN ([id number]) on 11/23/2020 10:42:13 AM Referred By: SHAILESH Confirmed By:SERGIO ANNE MD
[2020-11-18 13:50] LABS: Pathologist Review Reviewed
[2020-11-18] MEDS: Metoprolol Tartrate 5 MG/5 ML Vial IV (16:23)
[2020-11-18] MEDS: 0.9% Saline Lock 10 ML Syringe IV ×2 (16:25→18:01)
[2020-11-18 16:55] LABS: Bedside Glucose 207 mg/dL (70-110)
[2020-11-18] MEDS: Atorvastatin Calcium 40 MG Tablet PO (21:27)
[2020-11-18 22:40] LABS: Bedside Glucose 144 mg/dL (70-110)
[2020-11-19] VITALS (9 sets, daily range): BP systolic 116–156; BP diastolic 60–72; PULSE 62–69; RESP 18–20; TEMP 36.7–37.1; O2SAT 95–97
[2020-11-19] MEDS: Acetaminophen 325 MG Tablet 650 MG PO (05:11)
[2020-11-19] MEDS: 0.9% Saline Lock 10 ML Syringe IV ×3 (05:12→16:39)
[2020-11-19] MEDS: busPIRone 5 MG Tablet PO ×2 (05:12→13:13)
[2020-11-19] MEDS: Ipratropium/Albuterol Sulfate 3 ML AMPUL.NEB INHALATION ×2 (06:52→12:19)
[2020-11-19 07:12] LABS: Differential Indicated MANUAL DIFF; Hematocrit 30.9 % (37-47); Hemoglobin 10.2 g/dL (12.0-15.0); Mean Corpuscular Hgb 27.4 pg (27.0-32.0); Mean Corpuscular Volume 83.1 fL (81-99); Mean Platelet Vol. 9.1 fl (6.2-12.0); POSITIVE COUNT YES; POSITIVE DIFFERENTIAL YES; POSITIVE MORPHOLOGY YES; Platelet Count 676 K/mm3 (150-450); RBC Distribution Width CV 15.8 % (11.6-14.6); Red Blood Count 3.72 M/mm3 (4.2-5.4); White Blood Count 4.8 K/mm3 (4.4-11.0)
[2020-11-19 07:37] LABS: Anion Gap 8 (5-15); BUN 11 mg/dL (7-18); BUN/Creat Ratio 13.4 RATIO (10-20); Calcium,Total 7.4 mg/dL (8.5-10.1); Chloride 91 mmol/L (98-107); Creatinine, Serum 0.82 mg/dL (0.55-1.02); EST Glomerular Filtration Rate 75 mL/min (>60); Est Glom Filt Rate - Afr Amer 91 mL/min (>60); Estimated Creatinine Clearance 61.43 ml/min; Glucose 158 mg/dL (74-106); Magnesium 1.1 mg/dL (1.6-2.6); Potassium 3.6 mmol/L (3.5-5.1); Sodium Level 129 mmol/L (136-145)
[2020-11-19] MEDS: Insulin Lispro 100 UNIT/ML INSULN.PEN SC ×2 (08:00→12:05)
[2020-11-19] MEDS: Insulin Lispro 100 UNIT/ML INSULN.PEN 20 UNIT SC ×2 (08:00→12:05)
[2020-11-19 08:11] LABS: Blast 2 % (0-0); Eosinophil 2 % (0-5); Lymphocyte 43 % (19-41); Monocyte 26 % (0-10); Myelocyte 2 % (0-0); Neutrophil-Band 11 % (0-5); Neutrophil-Segmented 14 % (47-70); Total Cells Counted 100 (MANUAL DIFF)
[2020-11-19 08:13] LABS: Platelet Estimate ADEQUATE (ADEQ); Red Cell Morphology NORM C+C NORMAL (NORM C&C)
[2020-11-19 08:18] LABS: Absolute Lymphocyte Count 2.06 X10^3/uL (0.83-4.51); Absolute Neutrophil Count 1.2 X10^3/uL (2.0-7.7)
[2020-11-19] MEDS: FLUoxetine 20 MG Capsule 60 MG PO (08:53)
[2020-11-19] MEDS: Sodium Chloride 1 GM Tablet PO (08:54)
[2020-11-19] MEDS: Potassium Chloride Oral Tablet 20 MEQ PO (08:54)
[2020-11-19] MEDS: Lisinopril 5 MG Tablet PO (08:54)
[2020-11-19] MEDS: Pantoprazole Sodium 40 MG Tablet PO (08:54)
[2020-11-19] MEDS: metFORMIN HCl 1,000 MG Tablet 1000 MG PO (08:54)
[2020-11-19] MEDS: Metoprolol Tartrate 50 MG Tablet PO (08:54)
[2020-11-19] MEDS: Enoxaparin 40 MG/0.4 ML Syringe SC (08:56)
[2020-11-19] MEDS: Furosemide 40 MG/4 ML Vial IV (08:56)
--- NOTE | 2020-11-19 10:36 | PCM.DC ---
Discharge Instructions Diet Discharge Diet: No restrictions Activity Discharge Activity: Return to Normal Activity Dressing / Incision Call your doctor if you observe: Shortness of breath, Dizziness, Chest pain and Increased palpitations (irregular heartbeat) Follow Up Care Test Results: Test results from this visit will be discussed in further detail at your follow-up appointment, if applicable. Discharge Plan Admission Admit Date/Time: 11/17/20 22:53 Primary Reason for Your Visit: Heart failure Attending Provider: Andre Rojas Primary Care Provider: Sarah Duarte Discharge Orders/Prescriptions Prescriptions: New potassium chloride [Klor-Con M20] 20 mEq Tablet,Er Particles/Crystals 20 meq PO BIDCM Qty: 60 RF: 0 furosemide [Lasix] 40 mg tablet 40 mg PO DAILY Qty: 30 RF: 0 magnesium 200 mg tablet 200 mg PO BID Qty: 60 RF: 0 Continued meclizine 25 mg tablet 25 mg PO DAILY PRN (Reason: Vertigo) RF: 0 prochlorperazine maleate 10 mg tablet 10 mg PO Q6H PRN (Reason: nausea and vomiting) Qty: 30 RF: 2 ondansetron 8 mg tablet,disintegrating 8 mg PO Q8H PRN (Reason: nausea and vomiting) Qty: 30 RF: 2 lidocaine-prilocaine 2.5-2.5 % cream 1 applic topical ONCE PRN (Reason: Port access ) 30 Days Qty: 30 RF: 2 nitroglycerin 0.4 MG tablet 0.4 mg SL Q5M PRN (Reason: Chest Pain) RF: 0 alprazolam 0.5 mg tablet 0.25 mg PO QHS PRN PRN (Reason: Sleep) RF: 0 buspirone 5 MG tablet 5 mg PO TID RF: 0 pantoprazole 20 MG tablet 40 mg PO DAILY RF: 0 metformin 1,000 MG tablet 1,000 mg PO BID RF: 0 albuterol sulfate 90 mcg/actuation HFA aerosol inhaler 2 puff INHALATION Q4H PRN PRN (Reason: Sob &/Or Wheezing) RF: 0 dicyclomine 10 MG capsule 10 - 20 mg PO TID PRN PRN (Reason: stomach) RF: 0 budesonide-formoterol 160-4.5 mcg/actuation HFA aerosol inhaler 2 puff INHALATION BID RF: 0 insulin glargine 100 UNIT/ML insulin pen 25 unit SC QAM RF: 0 Trulicity 1.5 mg/0.5 mL pen injector 1.5 mg SUBCUT FR RF: 0 sodium chloride 1 gram tablet 1 g PO DAILY RF: 0 fluoxetine 20 mg capsule 60 mg PO DAILY RF: 0 insulin aspart U-100 [Novolog Flexpen U-100 Insulin] 100 unit/mL (3 mL) insulin pen 20 unit SC TID RF: 0 metoprolol tartrate 50 mg Tablet 50 mg PO BID Qty: 60 RF: 1 atorvastatin 40 mg tablet 40 mg PO QHS Qty: 90 RF: 3 lisinopril 5 mg tablet 5 mg PO DAILY Qty: 90 RF: 1 Referrals / Follow Up: Craig Pretty MD [STAFF PHYSICIAN] - See Referral Note (As scheduled 12/07/20) Sarah Duarte MD [Primary Care Provider] - 11/25/20 4:45 pm Max Gaspar MD [NON-STAFF] - See Referral Note (As scheduled ) Trey Hanson NP, ONLINE FACILITATOR-C [Nurse Practitioner] - Within 2 Weeks Disposition Disposition (needs filled in before D/C Order can be placed): Home, self care
--- NOTE | 2020-11-19 10:47 | DS.PCM_ITS ---
Documented by User: Moni Peterson NP, CHIEF TALENT OFFICER-C 11/19/20 11:03 Providers Date of Admission: 11/17/20 Date of Discharge: 11/19/20 Primary Care Physician: Dr. Sarah Duarte MD Reason For Visit: RESPIRATORY FAILURE, DIASTOLIC CHF Diagnosis Discharge Diagnosis (1) Pulmonary edema: Status: Acute Code(s): J81.1 - Chronic pulmonary edema (2) Electrolyte abnormality: Status: Acute Code(s): E87.8 - Other disorders of electrolyte and fluid balance, not elsewhere classified (3) Small cell lung cancer, right middle lobe: Status: Acute Code(s): C34.2 - Malignant neoplasm of middle lobe, bronchus or lung (4) Acute and chronic respiratory failure with hypoxia: Status: Chronic Code(s): J96.21 - Acute and chronic respiratory failure with hypoxia (5) Atherosclerosis of [place] coronary artery of [place] heart without angina pectoris: Status: Chronic Code(s): I25.10 - Atherosclerotic heart disease of [place] coronary artery without angina pectoris (6) Anemia: Status: Acute Code(s): D64.9 - Anemia, unspecified (7) Neutropenia: Status: Acute Code(s): D70.9 - Neutropenia, unspecified Medications at Discharge Home Medications nitroglycerin 0.4 mg SL Q5M PRN 07/03/13 albuterol sulfate 2 puff INHALATION Q4H PRN PRN 11/20/19 buspirone 5 mg PO TID 11/20/19 dicyclomine 10 - 20 mg PO TID PRN PRN 11/20/19 metformin 1,000 mg PO BID 11/20/19 pantoprazole 40 mg PO DAILY 11/20/19 atorvastatin 40 mg tablet 40 mg PO QHS #90 tablet 12/23/19 budesonide-formoterol HFA 160 mcg-4.5 mcg/actuation aerosol inhaler 2 puff INHALATION BID 03/09/20 meclizine 25 mg tablet 25 mg PO DAILY PRN 03/09/20 insulin glargine 25 unit SC QAM 07/24/20 alprazolam 0.5 mg tablet 0.25 mg PO QHS PRN PRN tablet 09/14/20 lisinopril 5 mg tablet 5 mg PO DAILY #90 tablet 10/05/20 lidocaine-prilocaine 2.5 %-2.5 % topical cream 1 applic TOPICAL ONCE PRN 30 Days #30 g 10/19/20 ondansetron 8 mg disintegrating tablet 8 mg PO Q8H PRN #30 tab 10/19/20 prochlorperazine maleate 10 mg tablet 10 mg PO Q6H PRN #30 tab 10/19/20 Trulicity 1.5 mg SUBCUT FR 10/20/20 fluoxetine 60 mg PO DAILY 10/20/20 insulin aspart U-100 [Novolog Flexpen U-100 Insulin] 20 unit SC TID 10/20/20 sodium chloride 1 g PO DAILY 10/20/20 metoprolol tartrate 50 mg PO BID #60 tab 10/25/20 furosemide [Lasix] 40 mg PO DAILY #30 tab 11/19/20 magnesium 200 mg PO BID #60 tab 11/19/20 potassium chloride [Klor-Con M20] 20 meq PO BIDCM #60 tab 11/19/20 Hospital Course Operations None Procedures None Summary of Care Provided Minutes Spent on Discharge: 35 Hospital Course: Patient is a 60-year-old female admitted 11/17/2020 due to shortness of breath. 1. Acute on chronic hypoxic respiratory failure secondary to acute heart failure with preserved ejection fraction- BNP 307. Chest x-ray with right-sided pleural effusion, consistent with pulmonary congestion. IV Lasix during admission. Patient discharged on baseline home O2 requirements, 3 to 4 L nasal cannula. 2. Acute heart failure with preserved ejection fraction-echocardiogram 10/20/2020 demonstrated an EF of 50%, mild mitral valve insufficiency, RVSP estimated to be 44 mmHg. Transition to oral Lasix 40 mg daily at discharge. Follow-up with cardiology CHIEF TALENT OFFICER in 2 weeks. Patient follows with Dr. Rivera. 3. Hypokalemia/hypomagnesia/hypocalcemia-suspect secondary to chemotherapy regimen. Replaced per protocol. Discharged on oral supplementation. Recommend repeat BMP/mag in 3 to 5 days for further assessment. 4. Chronic COPD with chronic hypoxic respiratory failure-on baseline home O2 requirements. Continue home inhaler/aerosol regimen. Follow-up with Dr. Pretty , pulmonary medicine as scheduled. 5. Recent diagnosis small cell lung cancer-on chemotherapy with associated neutropenia. Following with Dr. Gaspar. Next chemotherapy on Monday. 6. Chronic hyponatremia-on salt tabs at baseline. Recommend outpatient follow up. 7. Chronic normocytic anemia- stable, trend CBC. 8. Hypertension-stable, continue metoprolol, lisinopril. 9. Hyperlipidemia- continue statin. 10. CAD with history of PCI-on statin, metoprolol. 11. History of DVT-no longer on anticoagulation. 12. Type 2 diabetes mellitus-continue home oral and insulin regimen. Follows with Dr. Rubio, endocrinology. 13. Obesity- encouraged diet and lifestyle modifications. 14. Depression/Anxiety-on as needed alprazolam, buspirone, fluoxetine. Patient seen and examined prior to discharge. Physical assessment as noted below. Patient is stable for discharge with follow up recommendations as noted above. This patient was seen by DEIDRE Medina under the supervision of Dr. Rojas. Physical Exam Const alert, oriented x3 and no apparent distress Orientation / Consciousness: awake, oriented to person, oriented to place and oriented to time HEENT normocephalic and moist oral mucous membranes Eyes PERRL, EOMs intact bilaterally and conjunctivae normal Neck no lymphadenopathy Resp clear to auscultation bilaterally Auscultation: diminished lung sounds Cardio regular rate, regular rhythm and no murmurs Peripheral Pulses: pulses 2+ throughout GI normal to inspection, nondistended, normoactive bowel sounds, non-tender and non-distended Extremity normal to inspection Skin no rashes or lesions noted Lesions: no lesions Rashes: no rashes Trauma: no lacerations or abrasions Neuro CN's II-XII intact bilaterally, no focal motor deficits, no sensory deficits noted and deep tendon reflexes 2+ bilaterally Psych mental status grossly normal and affect normal ABG / Lab / Microbiology Data Result Diagrams: 11/19/20 06:34 11/19/20 06:34 Laboratory: Laboratory Results - last 24 hr 11/17/20 11/18/20 11/18/20 19:30 05:44 12:31 WBC RBC Hgb Hct MCV MCH MCHC RDW Std Deviation RDW Coeff of [place] Plt Count MPV Neut % (Auto) Absolute Neuts (auto) Absolute Lymphs (auto) Total Counted Neutrophils % (Manual) Band Neutrophils % Lymphocytes % (Manual) Monocytes % (Manual) Eosinophils % (Manual) Myelocytes % Blast Cells % Diff Path Review Reviewed Reviewed Platelet Estimate RBC Morphology Sodium Potassium Chloride Carbon Dioxide Anion Gap BUN Creatinine Estim Creat Clear Calc Est GFR (MDRD) Af Amer Est GFR (MDRD) Non-Af BUN/Creatinine Ratio Glucose Calcium Magnesium POC Glucose 129 H 11/18/20 11/18/20 11/19/20 16:18 21:34 06:34 WBC 4.8 RBC 3.72 L Hgb 10.2 L Hct 30.9 L MCV 83.1 MCH 27.4 MCHC 33.0 RDW Std Deviation 46.0 H RDW Coeff of [place] 15.8 H Plt Count 676 H MPV 9.1 Neut % (Auto) Not Reportable Absolute Neuts (auto) 1.2 L Absolute Lymphs (auto) 2.06 Total Counted 100 Neutrophils % (Manual) 14 L Band Neutrophils % 11 H Lymphocytes % (Manual) 43 H Monocytes % (Manual) 26 H Eosinophils % (Manual) 2 Myelocytes % 2 H Blast Cells % 2 H* Diff Path Review May foll Platelet Estimate ADEQUATE RBC Morphology NORM C+C Sodium Potassium Chloride Carbon Dioxide Anion Gap BUN Creatinine Estim Creat Clear Calc Est GFR (MDRD) Af Amer Est GFR (MDRD) Non-Af BUN/Creatinine Ratio Glucose Calcium Magnesium POC Glucose 207 H 144 H 11/19/20 06:34 WBC RBC Hgb Hct MCV MCH MCHC RDW Std Deviation RDW Coeff of [place] Plt Count MPV Neut % (Auto) Absolute Neuts (auto) Absolute Lymphs (auto) Total Counted Neutrophils % (Manual) Band Neutrophils % Lymphocytes % (Manual) Monocytes % (Manual) Eosinophils % (Manual) Myelocytes % Blast Cells % Diff Path Review Platelet Estimate RBC Morphology Sodium 129 L Potassium 3.6 Chloride 91 L Carbon Dioxide 30.0 Anion Gap 8 BUN 11 Creatinine 0.82 Estim Creat Clear Calc 61.43 Est GFR (MDRD) Af Amer 91 Est GFR (MDRD) Non-Af 75 BUN/Creatinine Ratio 13.4 Glucose 158 H Calcium 7.4 L Magnesium 1.1 L POC Glucose D/C Instructions Discharge Diet: No restrictions Discharge Activity: Return to Normal Activity Call your doctor if you observe: Shortness of breath, Dizziness, Chest pain and Increased palpitations (irregular heartbeat) Meaningful Use Info Meaningful Use Diagnoses (Choose all that apply): CHF CHF LÓPEZ/ARB ordered at discharge?: Yes Documented LVEF (%): 60 Discharge Plan Admission Admit Date/Time: 11/17/20 22:53 Primary Reason for Your Visit: Heart failure Attending Provider: Andre Rojas Primary Care Provider: Sarah Duarte Discharge Orders/Prescriptions Prescriptions: New potassium chloride [Klor-Con M20] 20 mEq Tablet,Er Particles/Crystals 20 meq PO BIDCM Qty: 60 RF: 0 furosemide [Lasix] 40 mg tablet 40 mg PO DAILY Qty: 30 RF: 0 magnesium 200 mg tablet 200 mg PO BID Qty: 60 RF: 0 Continued meclizine 25 mg tablet 25 mg PO DAILY PRN (Reason: Vertigo) RF: 0 prochlorperazine maleate 10 mg tablet 10 mg PO Q6H PRN (Reason: nausea and vomiting) Qty: 30 RF: 2 ondansetron 8 mg tablet,disintegrating 8 mg PO Q8H PRN (Reason: nausea and vomiting) Qty: 30 RF: 2 lidocaine-prilocaine 2.5-2.5 % cream 1 applic topical ONCE PRN (Reason: Port access ) 30 Days Qty: 30 RF: 2 nitroglycerin 0.4 MG tablet 0.4 mg SL Q5M PRN (Reason: Chest Pain) RF: 0 alprazolam 0.5 mg tablet 0.25 mg PO QHS PRN PRN (Reason: Sleep) RF: 0 buspirone 5 MG tablet 5 mg PO TID RF: 0 pantoprazole 20 MG tablet 40 mg PO DAILY RF: 0 metformin 1,000 MG tablet 1,000 mg PO BID RF: 0 albuterol sulfate 90 mcg/actuation HFA aerosol inhaler 2 puff INHALATION Q4H PRN PRN (Reason: Sob &/Or Wheezing) RF: 0 dicyclomine 10 MG capsule 10 - 20 mg PO TID PRN PRN (Reason: stomach) RF: 0 budesonide-formoterol 160-4.5 mcg/actuation HFA aerosol inhaler 2 puff INHALATION BID RF: 0 insulin glargine 100 UNIT/ML insulin pen 25 unit SC QAM RF: 0 Trulicity 1.5 mg/0.5 mL pen injector 1.5 mg SUBCUT FR RF: 0 sodium chloride 1 gram tablet 1 g PO DAILY RF: 0 fluoxetine 20 mg capsule 60 mg PO DAILY RF: 0 insulin aspart U-100 [Novolog Flexpen U-100 Insulin] 100 unit/mL (3 mL) insulin pen 20 unit SC TID RF: 0 metoprolol tartrate 50 mg Tablet 50 mg PO BID Qty: 60 RF: 1 atorvastatin 40 mg tablet 40 mg PO QHS Qty: 90 RF: 3 lisinopril 5 mg tablet 5 mg PO DAILY Qty: 90 RF: 1 Referrals / Follow Up: Craig Pretty MD [STAFF PHYSICIAN] - 12/07/20 (As scheduled 12/07/20) Sarah Duarte MD [Primary Care Provider] - 11/25/20 4:45 pm Max Gaspar MD [NON-STAFF] - 11/23/20 7:45 am (Get blood work done around 7:45am and then they will determine treatment for this day. ) Trey Hanson NP, CHIEF TALENT OFFICER-C [Nurse Practitioner] - Within 2 Weeks Disposition Disposition (needs filled in before D/C Order can be placed): Home, self care Documented by User: Dr. Andre Rojas MD 11/19/20 11:48 Providers Date of Admission: 11/17/20 Reason For Visit: RESPIRATORY FAILURE, DIASTOLIC CHF Medications at Discharge Home Medications nitroglycerin 0.4 mg SL Q5M PRN 07/03/13 albuterol sulfate 2 puff INHALATION Q4H PRN PRN 11/20/19 buspirone 5 mg PO TID 11/20/19 dicyclomine 10 - 20 mg PO TID PRN PRN 11/20/19 metformin 1,000 mg PO BID 11/20/19 pantoprazole 40 mg PO DAILY 11/20/19 atorvastatin 40 mg tablet 40 mg PO QHS #90 tablet 12/23/19 budesonide-formoterol HFA 160 mcg-4.5 mcg/actuation aerosol inhaler 2 puff INHALATION BID 03/09/20 meclizine 25 mg tablet 25 mg PO DAILY PRN 03/09/20 insulin glargine 25 unit SC QAM 07/24/20 alprazolam 0.5 mg tablet 0.25 mg PO QHS PRN PRN tablet 09/14/20 lisinopril 5 mg tablet 5 mg PO DAILY #90 tablet 10/05/20 lidocaine-prilocaine 2.5 %-2.5 % topical cream 1 applic TOPICAL ONCE PRN 30 Days #30 g 10/19/20 ondansetron 8 mg disintegrating tablet 8 mg PO Q8H PRN #30 tab 10/19/20 prochlorperazine maleate 10 mg tablet 10 mg PO Q6H PRN #30 tab 10/19/20 Trulicity 1.5 mg SUBCUT FR 10/20/20 fluoxetine 60 mg PO DAILY 10/20/20 insulin aspart U-100 [Novolog Flexpen U-100 Insulin] 20 unit SC TID 10/20/20 sodium chloride 1 g PO DAILY 10/20/20 metoprolol tartrate 50 mg PO BID #60 tab 10/25/20 furosemide [Lasix] 40 mg PO DAILY #30 tab 11/19/20 magnesium 200 mg PO BID #60 tab 11/19/20 potassium chloride [Klor-Con M20] 20 meq PO BIDCM #60 tab 11/19/20 Hospital Course Operations None Summary of Care Provided Hospital Course: This patient was seen in conjunction with CARYN Medina . I have independently interviewed and examined the patient and reviewed pertinent historical, laboratory, and other data. Please refer to DEIDRE Medina note for details of this patient's presentation, findings, and recommendations. I have reviewed DEIDRE Medina note and concur with documented findings. In brief, patient is a 60-year-old female admitted with multiple comorbidities who presented with progressive shortness of breath and assessment of acute conge stive heart failure made admitted to monitored bed for further management Assessment: 1. Acute congestive heart failure 2. Small cell carcinoma involving the right middle lobe 3. Essential hypertension 4. Dyslipidemia 5. Chronic hypoxic respiratory failure on baseline home oxygen 6. Coronary artery disease with previous PCI 7. Previous history of DVT 8. COPD 9. Diabetes mellitus type 2 10. Obesity with BMI of 35 11. Anemia secondary to anemia of chronic disorder 12. Hyponatremia 13. Hypokalemia 14. Hypomagnesemia 15. Hypocalcemia Hospital course: As documented above ABG / Lab / Microbiology Data Result Diagrams: 11/19/20 06:34 06/03/21 06:34 Discharge Plan Admission Admit Date/Time: 11/17/20 22:53 Primary Reason for Your Visit: Heart failure Attending Provider: Andre Rojas Primary Care Provider: Sarah Duarte Discharge Orders/Prescriptions Prescriptions: New potassium chloride [Klor-Con M20] 20 mEq Tablet,Er Particles/Crystals 20 meq PO BIDCM Qty: 60 RF: 0 furosemide [Lasix] 40 mg tablet 40 mg PO DAILY Qty: 30 RF: 0 magnesium 200 mg tablet 200 mg PO BID Qty: 60 RF: 0 Continued meclizine 25 mg tablet 25 mg PO DAILY PRN (Reason: Vertigo) RF: 0 prochlorperazine maleate 10 mg tablet 10 mg PO Q6H PRN (Reason: nausea and vomiting) Qty: 30 RF: 2 ondansetron 8 mg tablet,disintegrating 8 mg PO Q8H PRN (Reason: nausea and vomiting) Qty: 30 RF: 2 lidocaine-prilocaine 2.5-2.5 % cream 1 applic topical ONCE PRN (Reason: Port access ) 30 Days Qty: 30 RF: 2 nitroglycerin 0.4 MG tablet 0.4 mg SL Q5M PRN (Reason: Chest Pain) RF: 0 alprazolam 0.5 mg tablet 0.25 mg PO QHS PRN PRN (Reason: Sleep) RF: 0 buspirone 5 MG tablet 5 mg PO TID RF: 0 pantoprazole 20 MG tablet 40 mg PO DAILY RF: 0 metformin 1,000 MG tablet 1,000 mg PO BID RF: 0 albuterol sulfate 90 mcg/actuation HFA aerosol inhaler 2 puff INHALATION Q4H PRN PRN (Reason: Sob &/Or Wheezing) RF: 0 dicyclomine 10 MG capsule 10 - 20 mg PO TID PRN PRN (Reason: stomach) RF: 0 budesonide-formoterol 160-4.5 mcg/actuation HFA aerosol inhaler 2 puff INHALATION BID RF: 0 insulin glargine 100 UNIT/ML insulin pen 25 unit SC QAM RF: 0 Trulicity 1.5 mg/0.5 mL pen injector 1.5 mg SUBCUT FR RF: 0 sodium chloride 1 gram tablet 1 g PO DAILY RF: 0 fluoxetine 20 mg capsule 60 mg PO DAILY RF: 0 insulin aspart U-100 [Novolog Flexpen U-100 Insulin] 100 unit/mL (3 mL) insu adán pen 20 unit SC TID RF: 0 metoprolol tartrate 50 mg Tablet 50 mg PO BID Qty: 60 RF: 1 atorvastatin 40 mg tablet 40 mg PO QHS Qty: 90 RF: 3 lisinopril 5 mg tablet 5 mg PO DAILY Qty: 90 RF: 1 Referrals / Follow Up: Craig Pretty MD [STAFF PHYSICIAN] - 12/07/20 (As scheduled 12/07/20) Sarah Duarte MD [Primary Care Provider] - 11/25/20 4:45 pm Max Gaspar MD [NON-STAFF] - 11/23/20 7:45 am (Get blood work done around 7:45am and then they will determine treatment for this day. ) Trey Hanson CHIEF TALENT OFFICER, CHIEF TALENT OFFICER-C [Nurse Practitioner] - Within 2 Weeks Disposition Disposition (needs filled in before D/C Order can be placed): Home, self care Visit Charges Inpatient E&M: 20876 Disch Hosp Hospital Course Operations None
--- NOTE | 2020-11-19 11:04 | CASEMGMT ---
MACK WOOD NOTE: During pt's prior admission, a referral to Palliative Care was made and BALL FRINGE MACHINE OPERATOR met w/pt. TC to Adrienne @ [facility]. She states pt had declined Palliative Care services, but they would meet w/pt again if she is interested. MACK WOOD to room at this time. Pt is being discharged and getting ready to go home. Asked pt if she is interested in talking w/Palliative care again and she declines at this time, stating, Not yet. She states she has their contact info and will contact them if she decides she would like them in the future. Pt's sig other is @ bedside and has brought in pt's portable O2 to go home on. Pt denies having any discharge needs/concerns. Holli HERNANDEZ RN, CM
--- NOTE | 2020-11-19 11:18 | PHA.DC.MC ---
Pharmacy Service has performed discharge medication reconciliation and counseling for this patient. The patient was counseled on the following discharge medications and changes in medications for homegoing were reviewed. 1. LASIX 2. POTASSIUM 3. MAGNESIUM The Reason for Use, instructions for use, and potential side effects were reviewed for all new medications. The patient's questions regarding all of their medications were answered. The patient demonstrated some understanding but would benefit from further education and reinforcement. Home Medications nitroglycerin 0.4 mg SL Q5M PRN 07/03/13 albuterol sulfate 2 puff INHALATION Q4H PRN PRN 11/20/19 buspirone 5 mg PO TID 11/20/19 dicyclomine 10 - 20 mg PO TID PRN PRN 11/20/19 metformin 1,000 mg PO BID 11/20/19 pantoprazole 40 mg PO DAILY 11/20/19 atorvastatin 40 mg tablet 40 mg PO QHS #90 tablet 12/23/19 budesonide-formoterol HFA 160 mcg-4.5 mcg/actuation aerosol inhaler 2 puff INHALATION BID 03/09/20 meclizine 25 mg tablet 25 mg PO DAILY PRN 03/09/20 insulin glargine 25 unit SC QAM 07/24/20 alprazolam 0.5 mg tablet 0.25 mg PO QHS PRN PRN tablet 09/14/20 lisinopril 5 mg tablet 5 mg PO DAILY #90 tablet 10/05/20 lidocaine-prilocaine 2.5 %-2.5 % topical cream 1 applic TOPICAL ONCE PRN 30 Days #30 g 10/19/20 ondansetron 8 mg disintegrating tablet 8 mg PO Q8H PRN #30 tab 10/19/20 prochlorperazine maleate 10 mg tablet 10 mg PO Q6H PRN #30 tab 10/19/20 Trulicity 1.5 mg SUBCUT FR 10/20/20 fluoxetine 60 mg PO DAILY 10/20/20 insulin aspart U-100 [Novolog Flexpen U-100 Insulin] 20 unit SC TID 10/20/20 sodium chloride 1 g PO DAILY 10/20/20 metoprolol tartrate 50 mg PO BID #60 tab 10/25/20 furosemide [Lasix] 40 mg PO DAILY #30 tab 11/19/20 magnesium 200 mg PO BID #60 tab 11/19/20 potassium chloride [Klor-Con M20] 20 meq PO BIDCM #60 tab 11/19/20 The patient's discharge medication list was reviewed for discrepancies and discrepancies were resolved.
[2020-11-19] MEDS: Magnesium Sulfate 4gm/100mL 4 GM/100 ML IV.SOLN. IV (12:01)
[2020-11-19 12:21] LABS: Bedside Glucose 159 mg/dL (70-110)
--- NOTE | 2020-11-20 13:58 | CASEMGMT ---
MACK WOOD Discharge F/U Phone Call LACE: 12 Strata: 3 Discharge date: 11/19/20 Call date: 11/20/20 Call time: [phone] Admission dx: Resp failure, diastolic CHF Pt answered phone and states has been doing 'ok' since discharge. Pt states no questions regarding d/c instructions/medications. Pt states has f/u appt's scheduled and plans to keep. Pt states no suggestions for [facility] and states 'I was treated really well.' Pt voices no further questions/concerns/needs. [place] MACK WOOD
[2020-11-20 14:21] LABS: Pathologist Review Reviewed
== END 2020-11-19 16:51 | disposition home or self-care (01) | DRG 194 ==
LOC: ED 21:46 → PCU 11-18 02:34
PROVIDERS: Admitting Provider Internal Medicine; Emergency Provider Emergency Medicine; PCP Internal Medicine; Visit Provider Internal Medicine
DX: I11.0 Hypertensive heart disease with heart failure (principal); J96.21 Acute and chronic respiratory failure with hypoxia; I50.41 Acute combined systolic (congestive) and diastolic (congestive) heart failure; C34.2 Malignant neoplasm of middle lobe, bronchus or lung; E87.6 Hypokalemia; I27.20 Pulmonary hypertension, unspecified; D63.0 Anemia in neoplastic disease; D70.9 Neutropenia, unspecified; E87.1 Hypo-osmolality and hyponatremia; I25.10 Atherosclerotic heart disease of native coronary artery without angina pectoris; J44.9 Chronic obstructive pulmonary disease, unspecified; K21.9 Gastro-esophageal reflux disease without esophagitis; E83.51 Hypocalcemia; F32.9 Major depressive disorder, single episode, unspecified; F41.9 Anxiety disorder, unspecified; E78.5 Hyperlipidemia, unspecified; E11.9 Type 2 diabetes mellitus without complications; Z79.899 Other long term (current) drug therapy; Z79.4 Long term (current) use of insulin; Z86.718 Personal history of other venous thrombosis and embolism; Z87.891 Personal history of nicotine dependence; Z99.81 Dependence on supplemental oxygen; E66.9 Obesity, unspecified; Z68.35 Body mass index [BMI] 35.0-35.9, adult
CPT/HCPCS: 36415; 36591; 71045; 80048; 80053; 81001; 82330; 82962; 83615; 83735; 83880; 84100; 84550; 85025; 87040; 93005; 94002; 94640; 97802; 99251; 99285; J7050; A4216; G0463; J0610; J1940

== ENCOUNTER → 2020-12-04 15:37 | Outpatient (CLI) | payer MEDICAID, SELFPAY ==
[2020-12-04 14:51] VITALS: BMI 33.6
--- NOTE | 2020-12-04 15:59 | RAD_ITS ---
STUDY: X-RAY - LUMBAR SPINE REASON FOR EXAM: Female, 60 years old. BACK PAIN TECHNIQUE: 3 view(s) of the lumbar spine were obtained. COMPARISON: None FINDINGS: Normal lumbar lordosis. There is no substantial scoliosis. Status post transpedicular fixation from L4 through S1 facets with 15 mm of anterolisthesis of L5 on S1. Mild loss of height and wedging deformity of the L1 and L3 vertebral bodies consistent with mild compression fractures. These may be acute, subacute, or chronic and clinical correlation and MRI would be useful. There is multi-level degenerative disc disease with multi-level disc space narrowing. The soft tissue structures are unremarkable. RAD/Lumbar Spine 2 or 3 Views IMPRESSION: 1. Status post transpedicular fixation from L4 through S1 with 15 mm of anterolisthesis of L5 on S1. 2. Mild compression fractures of L1 and L3 which may be acute, subacute, or chronic and clinical correlation and MRI would be useful. 3. Mild diffuse degenerative disc disease. Electronically Signed: Junior Chambers MD at 16:22 EDT Tel , Service support ,
--- NOTE | 2020-12-04 15:59 | RAD_ITS ---
STUDY: X-RAY - PELVIS REASON FOR EXAM: Female, 60 years old. BACK PAIN TECHNIQUE: One view of the pelvis was obtained. COMPARISON: None. FINDINGS: There is a non-specific bowel gas pattern. Normal visualized soft tissue structures. Normal bilateral iliac wings, sacroiliac joints and visualized sacrum. Normal visualized bilateral superior and inferior pubic rami. Normal pubic symphysis. Normal ischial tuberosities. Normal visualized right femoral head. Normal right acetabulum. Normal right hip joint. Normal visualized left femoral head. Normal left acetabulum. Normal left hip joint. RAD/Pelvis 1 or 2 Views IMPRESSION: Normal x-ray examination of the pelvis. Electronically Signed: Junior Chambers MD at 16:20 EDT Tel , Service support ,
== END ==
PROVIDERS: PCP Internal Medicine; Referring Provider Anesthesiology Pain Medicine; Visit Provider Anesthesiology Pain Medicine
DX: M54.9 Dorsalgia, unspecified (principal)
CPT/HCPCS: 72100; 72170

== ENCOUNTER → 2020-12-22 15:34 | Outpatient (CLI) | payer MEDICAID, SELFPAY ==
[2020-12-14 09:33] VITALS: BMI 34.0
--- NOTE | 2020-12-22 15:36 | CT_ITS ---
STUDY: CT CHEST T ABDOMEN WITH CONTRAST REASON FOR EXAM: Female, 60 years old. Small cell lung ca; assess response to treatment. RADIATION DOSAGE (If Supplied By Facility): CTDIvol = ( 18.04 ) mGy, DLP = ( 1318.96 ) mGycm TECHNIQUE: Transaxial imaging was performed following intravenous administration of 100 ISOVUE 370. Individualized dose optimization techniques were used for this CT. COMPARISON: Comparison is made with prior examination dated 09/04/2020. FINDINGS: CHEST Stable small benign-appearing bilateral axillary lymph nodes. There is a 1.8 cm x 1.4 cm soft tissue density in the medial aspect of the right middle lobe anteriorly. This has decreased in size as compared to prior study. Mild increased markings in the lingular segment of the left upper lobe suggestive of possible scarring. There is no demonstrated pleural abnormality. There are calcifications of the coronary arteries. The previously seen mediastinal lymph node along the medial superior mediastinum has decreased in size. It presently measures 2.3 cm x 2.3 cm. There has been a marked degree of reduction in size of the right hilar lymph nodes as well as a subcarinal lymph node. The previously seen subcarinal lymphadenopathy presently measures 2 cm x 1.7 cm. Normal unenhanced pulmonary arteries. There is atherosclerotic calcification of the aortic arch with tortuosity and elongation of the aortic arch and descending thoracic aorta. There are multi-level degenerative changes of the thoracic spine. Stable 1.7 cm nodule in the crux of the left adrenal gland. Stable cyst in the upper pole of both kidneys. Hepatomegaly. ABDOMEN There is hepatomegaly with diffuse hepatic enlargement. The gallbladder is contracted. Normal spleen. Normal pancreas. 1.7 cm nodule in the crux of the left adrenal gland. This is unchanged. Normal right kidney. Normal left kidney. Normal visualized stomach. Normal small intestine. Normal colon. The appendix is visualized and appears normal. There is diffuse atherosclerotic calcification of the abdominal aorta, without a demonstrated aneurysm. Normal inferior vena cava. Normal retroperitoneum. Normal abdominal wall. There are diffuse degenerative changes of the visualized lumbar spine. CT/CT Chest AND Abd W/ Contrast IMPRESSION: Interval improvement in the previously seen mediastinal and right hilar lymphadenopathy as well as the soft tissue mass in the medial anterior aspect of the right middle lobe. Mild residual changes persist as described. Electronically Signed: Carlos Chou MD at 8:44 EDT , Service support ,
== END ==
PROVIDERS: PCP Internal Medicine; Referring Provider Nurse Practitioner Family; Visit Provider Nurse Practitioner Family
DX: C34.2 Malignant neoplasm of middle lobe, bronchus or lung (principal)
CPT/HCPCS: 71260; 74160

== ENCOUNTER 2021-01-01 07:31 | Day surgery (SDC) | payer MEDICAID, SELFPAY ==
[2020-12-14 09:33] VITALS: BMI 34.0
[2020-12-31 11:02] VITALS: BMI 33.7
--- NOTE | 2021-01-01 | IMM_PTH ---
PATIENT: CAPRI CORONEL LOC: [facility] [place] U#:[id number] AGE/SX: 60/F ROOM: RE01/01/[address]: Dr. Charo Trevino MD : 1960 BED: DIS: 01/01/2021 SPEC #: [id number] RECD: 01/04/21 12:26 STATUS: GILBERTO REQ #: [id number] RANJIT: 01/01/21 00:[address]: Charo Trevino DEPT: IMMUNOHISTOCHEMISTRY RECD BY: Eveline Dorado ENTERED: 01/04/21 12:27 SP TYPE: IMMUNO OTHR DR: Dr. Sarah Duarte MD Tissues: A - Vertebra, NOS B - Vertebra, NOS Procedures: CK8 (initial) CK7 (add) Pankeratin (add) PHYSICIAN & INSTITUTION [place] [phone] SPECIMEN INFORMATION: Tissue Source: A ? L1 biopsy, B ? L3 biopsy Clinical Info: Compression fracture Specimen Number: [id number] A & B CPT code: 16594 x2, 31943 x4 METHODOLOGY: Deparaffinized sections of prefer/formalin-fixed tissue or PAP/DQ stained slides are incubated with monoclonal/polyclonal antibodies/oligonucleotide probes. Localization is made via biotin free immunoperoxidase method. Appropriate controls are performed and reacted as expected. Results on target cell population are indicated in the following table: RESULTS: ANTIBODY / CLONE RESULT Block A CK8 ([id number]) negative AE1-3 (AE1/AE3/PCK26) negative CK7 (OV-TL12/30) negative Block B CK8 (42oxtkI63) negative AE1-3 (AE1/AE3/PCK26) negative CK7 (OV-TL12/30) negative These tests were developed and their performance characteristics determined by [facility]. They may not have been cleared or approved by the U.S. Food and Drug Administration. The FDA has determined that such clearance or approval is not necessary. The above immunohistochemical/dualISH markers are ordered and reviewed by the Pathologist. INTERPRETATION: A. L1, core biopsy: Negative for malignancy. B. L3, core biopsy: Negative for malignancy. TIMOTHY:killian 01/05/2021
[2021-01-01 08:00] LABS: Bedside Glucose 167 mg/dL (70-110)
[2021-01-01 08:06] VITALS: BP 111/62; PULSE 71; RESP 16; TEMP 35.5; O2SAT 100; BMI 33.3
[2021-01-01] MEDS: Lactated Ringers 1,000 ML 100 ML IV (08:19)
--- NOTE | 2021-01-01 09:00 | DISC_PTH ---
PATIENT: CAPRI CORONEL LOC: [facility] [place] U#:[id number] AGE/SX: 60/F ROOM: RE01/01/[address]: Dr. Charo Trevino MD : 1960 BED: DIS: 01/01/2021 SPEC #: [id number] RECD: 01/01/21 11:06 STATUS: GILBERTO REMariann #: [id number] RANJIT: 01/01/21 09:[address]: Charo Trevino DEPT: SURGICAL PATHOLOGY RECD BY: Fatoumata Moreno ENTERED: 01/01/21 11:39 SP TYPE: DISC OTHR DR: Dr. Sarah Duarte MD Tissues: A - Intervertebral disc, NOS B - Intervertebral disc, NOS Procedures: Surgery Specimen Level V HEADER OPERATION: Kyphoplasty L1, L3 biopsy PRE-OP DIAGNOSIS: Compression fracture TISSUE SUBMITTED: A ? L1 biopsy, B ? L3 biopsy MICROSCOPIC DIAGNOSIS A. L1, core biopsy: Fragments of hemorrhagic soft tissue mixed with minute fragments of bone, negative for malignancy, clinically compression fracture. See comment. B. L3, core biopsy: Fragments of hemorrhagic soft tissue mixed with minute fragments of bone, negative for malignancy, clinically compression fracture. See comment. SJ:rg 01/04/2021 COMMENT A. Hematopoietic marrow with trilineage hematopoiesis is also noted. A fragment of unremarkable skin is also present in the specimen. Immunohistochemistry ([id number]) supports the above diagnosis. B. Hematopoietic marrow with trilineage hematopoiesis is noted. Immunohistochemistry ([id number]) supports the above diagnosis. Please make reference to previous specimens ([id number]), EBUS, TBNA, site 10L with diagnosis of malignant cells present derived from small cell carcinoma and ([id number]) thoracentesis fluid for cytology with diagnosis of malignant cells present derived from small cell carcinoma. Case has been reviewed in consultation with Dr. Garza who concurs with the above diagnosis. IDC:AM MICROSCOPIC DESCRIPTION Slides are reviewed. GROSS DESCRIPTION A - Received in fixative is one container labeled with the patient's name and designated L1 biopsy. The specimen consists of two fragments of blood clot measuring in aggregate 0.8 x 0.5 x 0.1 cm. No obvious bone fragments are identified. The entire specimen is submitted in one cassette. B - Received in fixative is one container labeled with the patient's name and designated L3 biopsy. The specimen consists of a fragment of hemorrhagic soft tissue measuring 0.2 x 0.2 x 0.1 cm. The entire specimen is submitted in one cassette. / SJ:rg 01/01/21 TC:5 CPT: 15504 x2
--- NOTE | 2021-01-01 09:29 | RAD_ITS ---
CLINICAL HISTORY: Female, 60 years old. Loss of height of the L1 and L3 vertebrae. PROCEDURE: KYPHOPLASTY - L1 and L3 vertebrae. FLUOROSCOPY TIME (if supplied): (221 seconds) minutes/seconds. 11 intraoperative images were obtained. RAD/Lumbar Spine 2 or 3 Views IMPRESSION: Intraoperative imaging provided for vertebroplasty of the L1 and L3 vertebral bodies. Electronically Signed: Carlos Chou MD at 12:34 EDT , Service support ,
[2021-01-01] MEDS: Bupivacaine Mpf 0.5% 30 ML VIAL (10:15)
[2021-01-01 10:41] VITALS: BP 111/62; BP 125/63; PULSE 79; RESP 16; TEMP 36.5; O2SAT 95
[2021-01-01 10:45] VITALS: BP 111/62; BP 126/54; PULSE 77; RESP 16; O2SAT 97
[2021-01-01 11:00] VITALS: BP 111/62; BP 121/61; PULSE 81; RESP 16; O2SAT 98
[2021-01-01 11:00] LABS: Bedside Glucose 153 mg/dL (70-110)
[2021-01-01 11:20] VITALS: BP 103/49; BP 111/62; PULSE 75; RESP 16; TEMP 36.7; O2SAT 98
[2021-01-01 12:15] VITALS: BP 111/62; BP 115/58; PULSE 78; RESP 16; TEMP 36.4; O2SAT 95
== END 2021-01-01 12:30 | disposition home or self-care (01) ==
LOC: SDC 07:31 → AC 07:32
PROVIDERS: PCP Internal Medicine; Referring Provider Anesthesiology Pain Medicine; Visit Provider Anesthesiology Pain Medicine
PROC: (CPT 22514; principal; 2021-01-01 08:45)
DX: M80.08XA Age-related osteoporosis with current pathological fracture, vertebra(e), initial encounter for fracture (principal); M19.90 Unspecified osteoarthritis, unspecified site; Z79.899 Other long term (current) drug therapy; F41.9 Anxiety disorder, unspecified; F32.9 Major depressive disorder, single episode, unspecified; I25.10 Atherosclerotic heart disease of native coronary artery without angina pectoris; C34.90 Malignant neoplasm of unspecified part of unspecified bronchus or lung; E11.42 Type 2 diabetes mellitus with diabetic polyneuropathy; Z79.84 Long term (current) use of oral hypoglycemic drugs; E78.5 Hyperlipidemia, unspecified; I10 Essential (primary) hypertension; E66.9 Obesity, unspecified; Z68.33 Body mass index [BMI] 33.0-33.9, adult; Z95.5 Presence of coronary angioplasty implant and graft; Z99.81 Dependence on supplemental oxygen; J96.10 Chronic respiratory failure, unspecified whether with hypoxia or hypercapnia; K21.9 Gastro-esophageal reflux disease without esophagitis; K44.9 Diaphragmatic hernia without obstruction or gangrene; Z86.718 Personal history of other venous thrombosis and embolism; I25.2 Old myocardial infarction
CPT/HCPCS: 22514; 22515; 72100; 76000; 82962; 87426; 88304; 88307; 88341; 88342; C9803; J7120; J2405

== ENCOUNTER → 2021-01-25 10:12 | Outpatient (CLI) | payer MEDICAID, SELFPAY ==
[2021-01-06 11:12] VITALS: BMI 34.7
[2021-01-14 13:40] VITALS: BMI 32.8
--- NOTE | 2021-01-25 10:12 | MRI_ITS ---
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 This report was created using [employer] report generation technology. CONTRAST: IV dotarem 18ml COMPARISON: None. FINDINGS: BRAIN AND EXTRA-AXIAL SPACES: 16 mm lesion within the right cavernous sinus again noted which may represent aneurysm or meningioma. Brain signal intensity is normal. There is no abnormal diffusion weighted signal intensity to suggest an acute ischemic event. No abnormal contrast enhancement. SELLA: Unremarkable. Normal sella turcica, pituitary gland, infundibular stalk, optic chiasm and hypothalamus. AUDITORY SYSTEM: Unremarkable. The internal auditory canals are patent. BONES/JOINTS: Unremarkable. No discrete lytic or blastic abnormalities. SINUSES: Unremarkable as visualized. Clear. MASTOID AIR CELLS: Unremarkable as visualized. Clear. ORBITS: Unremarkable as visualized. Both globes, extraocular muscles, optic nerves and retrobulbar fat appear unremarkable. VASCULATURE: MRI/Brain W/WO Contrast IMPRESSION: 1. Stable MRI brain with and without contrast. 2. Stable 16mm cavernous sinus lesion which may represent aneurysm or more likely meningioma. at 1653 Reported and signed by: Jorge Wan MD Electronically Signed: Jorge Wan MD at 16:52 EDT Tel , Service support ,
== END ==
PROVIDERS: PCP Internal Medicine; Referring Provider Nurse Practitioner Family; Visit Provider Nurse Practitioner Family
DX: R25.1 Tremor, unspecified (principal); C34.2 Malignant neoplasm of middle lobe, bronchus or lung
CPT/HCPCS: 70553; A9575

== ENCOUNTER → 2021-02-10 15:24 | Outpatient (CLI) | payer MEDICAID, SELFPAY ==
[2021-02-10 17:14] LABS: Anion Gap 9 (5-15); BUN 11 mg/dL (7-18); BUN/Creat Ratio 11.5 RATIO (10-20); Calcium,Total 9.2 mg/dL (8.5-10.1); Chloride 95 mmol/L (98-107); Creatinine, Serum 0.96 mg/dL (0.55-1.02); EST Glomerular Filtration Rate 63 mL/min (>60); Est Glom Filt Rate - Afr Amer 76 mL/min (>60); Glucose 86 mg/dL (74-106); Potassium 3.6 mmol/L (3.5-5.1); Sodium Level 134 mmol/L (136-145)
== END ==
PROVIDERS: PCP Internal Medicine; Referring Provider Internal Medicine; Visit Provider Internal Medicine
DX: E87.6 Hypokalemia (principal)
CPT/HCPCS: 36415; 80048

== ENCOUNTER → 2021-03-09 11:03 | Outpatient (CLI) | payer MEDICAID, SELFPAY | PROVIDERS: PCP Internal Medicine; Referring Provider Nurse Practitioner Family; Visit Provider Nurse Practitioner Family | DX: J34.89 Other specified disorders of nose and nasal sinuses (principal); R05 Cough | CPT/HCPCS: 87635; C9803; U0005; U0003 ==

== ENCOUNTER → 2021-03-12 15:58 | Outpatient (CLI) | payer MEDICAID, SELFPAY ==
--- NOTE | 2021-03-12 16:00 | CT_ITS ---
STUDY: CTA OF THE BRAIN REASON FOR EXAM: Female, 60 years old. Headache, known right cavernous sinus lesion RADIATION DOSAGE (If Supplied By Facility): CTDIvol = ( 15.56 ) mGy, DLP = ( 381.71 ) mGycm TECHNIQUE: CT angiography was performed with a multi-detector CT scanner. Data acquisition was obtained from the skull base through the vertex following intravenous administration of IV 75mL Isovue-370. MIP images were reconstructed from the axial data set. Post-processing of the angiographic images was performed, with multiplanar reformation and 3D reconstruction. Individualized dose optimization techniques were used for this CT. COMPARISON: MRI brain from 01/25/2021 FINDINGS: The previously described 1.6 cm lesion in the right cavernous sinus is shown to represent an aneurysm as it is isodense to brain on the noncontrasted images, and shows diffuse homogeneous enhancement after contrast administration. There are peripheral calcifications, but no internal thrombus or dissection noted. Normal bilateral petrous carotid arteries. Normal right cavernous carotid artery with a normal supraclinoid bifurcation. Normal left cavernous carotid artery with a normal supraclinoid bifurcation. Normal right A1 segments of the anterior cerebral artery. Normal left A1 segments of the anterior cerebral artery. Normal intact anterior communicating artery (ACOM). Normal bilateral A2 segments of the anterior cerebral arteries. Normal right M1 and M2 segments of the middle cerebral arteries, with a normal M1 bifurcation. Normal left M1 and M2 segments of the middle cerebral arteries, with a normal M1 bifurcation. Normal right posterior communicating artery (PCOM). Normal left posterior communicating artery (PCOM). Normal bilateral vertebral arteries. Normal basilar artery with a normal basilar bifurcation. The visualized bilateral superior cerebellar (SCA) arteries are normal. Normal bilateral P1, P2 and visualized P3 segments of the posterior cerebral arteries. There is no demonstrated aneurysm of the [place]. There is no demonstrated abnormality of the visualized brain. 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 It is isodense to brain parenchyma on the noncontrast images that enhances avidly on the postcontrasted images. The remainder of the CT of the brain is normal. There is no further evidence of aneurysm, vascular malformation, or significant stenosis. Electronically Signed: Norberto Rushing MD at 18:00 EDT , Service support , STUDY: CT BRAIN WITHOUT CONTRAST REASON FOR EXAM: Female, 60 years old. Known right cavernous sinus mass RADIATION DOSAGE (If Supplied By Facility): CTDIvol = ( 44.99 ) mGy, DLP = ( 767.99 ) mGycm TECHNIQUE: Transaxial CT imaging of the brain was performed without administration of intravenous contrast material. Individualized dose optimization techniques were used for this CT. 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 It is isodense to brain parenchyma on the noncontrast images after contrast there is enhancement consistent with aneurysm. There is no internal debris or evidence of local associated hemorrhage. Normal soft tissue structures. Normal calvarium. Normal size ventricles and extra-axial spaces for the patient''s age. Normal white matter tracts of the cerebral hemispheres. Normal basal ganglia and thalami. Normal brainstem. Normal cerebellum. There is no intracranial hemorrhage. There are no findings of an acute ischemic infarction. Normal visualized paranasal sinuses. 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
[2021-03-12] MEDS: 0.9% Saline Lock 10 ML Syringe IV (16:24)
== END ==
PROVIDERS: PCP Internal Medicine; Referring Provider Psychiatry & Neurology Neurology; Visit Provider Psychiatry & Neurology Neurology
DX: I67.1 Cerebral aneurysm, nonruptured (principal); D32.9 Benign neoplasm of meninges, unspecified
CPT/HCPCS: 70496; Q9967; A4216

== ENCOUNTER → 2021-03-27 11:33 | Outpatient (CLI) | payer MEDICAID, SELFPAY ==
[2021-03-27 12:33] LABS: AST(SGOT) 18 U/L (15-37); Alanine Aminotransfer ALT/SGPT 22 U/L (13-56); Albumin, Serum 3.6 g/dL (3.2-5.0); Alkaline Phosphatase 65 U/L (45-117); Bilirubin, Direct 0.11 mg/dL (0.00-0.30); Cholesterol 111 mg/dL (200); Globulin 4.3 g/dL (2.2-4.2); High Density Lipoprotein 48 mg/dL; Protein, Total 7.9 g/dL (6.4-8.2); Triglycerides 143 mg/dL; Very Low Density Lipoprotein 29 mg/dL (5-40)
== END ==
PROVIDERS: PCP Internal Medicine; Referring Provider Internal Medicine Cardiovascular Disease; Visit Provider Internal Medicine Cardiovascular Disease
DX: E78.5 Hyperlipidemia, unspecified (principal); I25.10 Atherosclerotic heart disease of native coronary artery without angina pectoris; Z95.5 Presence of coronary angioplasty implant and graft
CPT/HCPCS: 36415; 80061; 80076

== ENCOUNTER → 2021-05-06 13:07 | Outpatient (CLI) | payer MEDICAID, SELFPAY ==
--- NOTE | 2021-05-06 13:10 | CT_ITS ---
STUDY: CT CHEST T ABDOMEN WITH CONTRAST REASON FOR EXAM: Female, 60 years old. MONITORING LUNG CANCER RADIATION DOSAGE (If Supplied By Facility): CTDIvol = ( 11.39 ) mGy, DLP = ( 1220.82 ) mGycm TECHNIQUE: Transaxial imaging was performed following intravenous administration of IV 100mL Isovue-300. Individualized dose optimization techniques were used for this CT. COMPARISON: Comparison is made with prior study dated 12/22/2020. FINDINGS: CHEST There are now is evidence of a mild loss and consolidation in the right middle lobe suggestive of a post obstructive pneumonitis and/or atelectasis. Stable mild degree of linear scarring in the left upper lobe and lingular segment of the left upper lobe. There is no demonstrated pleural abnormality. Normal heart and pericardium. Since prior examination, there has been progressive enlargement of the mediastinal adenopathy. There is also evidence of a subcarinal and right hilar lymphadenopathy. This has progressed as compared to prior study. Normal unenhanced pulmonary arteries. There is atherosclerotic calcification of the aortic arch with tortuosity and elongation of the aortic arch and descending thoracic aorta. There are multi-level degenerative changes of the thoracic spine. The patient is status post vertebroplasty of the L1 vertebrae. Stable small right renal cyst as well as a small left renal cyst. ABDOMEN Normal liver. The gallbladder is contracted. Normal spleen. Normal pancreas. There is a small, circumscribed, smooth, low attenuation left adrenal mass, consistent with an adrenal adenoma. This measures 1.3 cm. Normal right adrenal gland. Stable bilateral renal cysts. Normal visualized stomach. Normal small intestine. Normal colon. The appendix is visualized and appears normal. There is diffuse atherosclerotic calcification of the abdominal aorta, without a demonstrated aneurysm. Normal inferior vena cava. Normal retroperitoneum. Normal abdominal wall. The patient is status post laminectomy and interpedicular screw fixation at the L4-L5 and L5-S1 levels. Stable anterior listhesis of L5 on S1. Prior vertebroplasty of the T12 and L1 vertebrae. CT/CT Chest AND Abd W/ Contrast IMPRESSION: Interval enlargement of the mediastinal lymphadenopathy as well as right hilar adenopathy and consolidation and volume loss in the right middle lobe suggestive of postobstructive pneumonitis or atelectasis. Stable abdominal findings. Electronically Signed: Carlos Chou MD at 14:33 EST , Service support ,
== END ==
PROVIDERS: PCP Internal Medicine; Referring Provider Internal Medicine Medical Oncology; Visit Provider Internal Medicine Medical Oncology
DX: C34.2 Malignant neoplasm of middle lobe, bronchus or lung (principal)
CPT/HCPCS: 71260; 74160; Q9967

== ENCOUNTER 2021-05-26 12:51 | Day surgery (SDC) | payer MEDICAID, SELFPAY ==
[2021-05-26] VITALS (7 sets, daily range): BP systolic 74–110; BP diastolic 45–62; PULSE 79–150; RESP 14–16; TEMP 36.1–36.8; O2SAT 93–100; BMI 29.5
--- NOTE | 2021-05-26 | IMM_PTH ---
PATIENT: CAPRI CORONEL LOC: [place] U#:[id number] AGE/SX: 60/F ROOM: RE05/26/[address]: Dr. Craig Pretty MD : 1960 BED: DIS: 05/26/2021 SPEC #: [id number] RECD: 05/28/21 10:52 STATUS: GILBERTO REQ #: [id number] RANJIT: 05/26/21 00:[address]: Craig Pretty DEPT: IMMUNOHISTOCHEMISTRY RECD BY: Eveline Dorado ENTERED: 05/28/21 10:56 SP TYPE: IMMUNO OTHR DR: Dr. Sarah Duarte MD Tissues: Right middle lobe of lung, NOS Procedures: Synapto (add) NAPSIN A (add) CD56 (add) CHROMO (add) CK20 (add) CK7 (add) CK8 (add) KI-67 (add) P53 (add) TTF1 (add) Pankeratin (initial) NSE (add) PHYSICIAN & [address] [address] SPECIMEN INFORMATION: Tissue Source: Right middle lobe of lung Clinical Info: Lung mass Specimen Number: [id number] CPT code: 63885, 07883 x10 METHODOLOGY: Deparaffinized sections of prefer/formalin-fixed tissue or PAP/DQ stained slides are incubated with monoclonal/polyclonal antibodies/oligonucleotide probes. Localization is made via biotin free immunoperoxidase method. Appropriate controls are performed and reacted as expected. Results on target cell population are indicated in the following table: RESULTS: ANTIBODY / CLONE RESULT AE1-3 (AE1/AE3/PCK26) positive CK7 (OV-TL12/30) negative CK8 (29unegO68) positive CK20 (KS20.8) negative CD56 (123C3.D5) positive Chromo (LK2H10) positive Synapto (polyclonal) positive NSE Neuron Specific Enolase positive TTF-1 (8G7G3/1) positive Napsin A (Rabbit Polyclonal) negative Ki-67 (30-9) positive, >95% These tests were developed and their performance characteristics determined by [facility]. They may not have been cleared or approved by the U.S. Food and Drug Administration. The FDA has determined that such clearance or approval is not necessary. The above immunohistochemical/dualISH markers are ordered and reviewed by the Pathologist. INTERPRETATION: Right middle lobe of lung, endobronchial biopsy: Small cell carcinoma of lung. AM:killian 05/28/2021
--- NOTE | 2021-05-26 | LUNB_PTH ---
PATIENT: CAPRI CORONEL LOC: [place] U#:[id number] AGE/SX: 60/F ROOM: RE05/26/[address]: Dr. Craig Pretty MD : 1960 BED: DIS: 05/26/2021 SPEC #: [id number] RECD: 05/26/21 14:42 STATUS: GILBERTO REMariann #: [id number] RANJIT: 05/26/21 00:[address]: Craig Pretty DEPT: SURGICAL PATHOLOGY RECD BY: Fatoumata Moreno ENTERED: 05/27/21 07:12 SP TYPE: LUNG BX OTHR DR: Dr. Sarah Duarte MD Tissues: Lung, NOS Procedures: Surgery Specimen Level IV HEADER OPERATION: Bronchoscopy with biopsy PRE-OP DIAGNOSIS: Lung mass TISSUE SUBMITTED: Endobronchial biopsy RML MICROSCOPIC DIAGNOSIS Endobronchial biopsy, right middle lobe of lung: Small cell carcinoma. See comment. AM:killian 05/28/2021 COMMENT Immunohistochemistry ([id number]) supports the above diagnosis. Please correlate with cytology specimen [id number]. Reference is made to the patient's previous EBUS, TBNA ([id number]) in which small cell carcinoma was identified. MICROSCOPIC DESCRIPTION Slides are reviewed. GROSS DESCRIPTION Received in fixative is one container labeled with the patient's name and designated right middle lobe lung biopsy. The specimen consists of multiple irregular fragments of light reynolds soft tissue that in aggregate measure 1 x 0.5 x <0.1 cm. The specimen is totally submitted in one cassette. / AM:rg 05/27/21 TC:0 CPT: 54736
--- NOTE | 2021-05-26 | IMM_PTH ---
PATIENT: CAPRI CORONEL LOC: [place] U#:[id number] AGE/SX: 60/F ROOM: RE05/26/[address]: Dr. Craig Pretty MD : 1960 BED: DIS: 05/26/2021 SPEC #: [id number] RECD: 05/28/21 10:48 STATUS: GILBERTO REQ #: [id number] RANJIT: 05/26/21 00:[address]: Craig Pretty DEPT: IMMUNOHISTOCHEMISTRY RECD BY: Eveline Dorado ENTERED: 05/28/21 10:51 SP TYPE: IMMUNO OTHR DR: Dr. Sarah Duarte MD Tissues: Right middle lobe of lung, NOS Procedures: Synapto (add) NAPSIN A (add) CD56 (add) CHROMO (add) CK20 (add) CK7 (add) CK8 (add) KI-67 (add) TTF1 (add) Pankeratin (initial) NSE (add) PHYSICIAN & [address] [address] SPECIMEN INFORMATION: Tissue Source: Wash RML fluid Clinical Info: Lung mass Specimen Number: [id number] CPT code: 83846, 18010 x10 METHODOLOGY: Deparaffinized sections of prefer/formalin-fixed tissue or PAP/DQ stained slides are incubated with monoclonal/polyclonal antibodies/oligonucleotide probes. Localization is made via biotin free immunoperoxidase method. Appropriate controls are performed and reacted as expected. Results on target cell population are indicated in the following table: RESULTS: ANTIBODY / CLONE RESULT AE1-3 (AE1/AE3/PCK26) positive CK7 (OV-TL12/30) negative CK8 (09oqwyD52) positive CK20 (KS20.8) negative CD56 (123C3.D5) positive Chromo (LK2H10) positive Synapto (polyclonal) positive NSE Neuron Specific Enolase negative TTF-1 (8G7G3/1) positive Napsin A (Rabbit Polyclonal) negative Ki-67 (30-9) positive, >90% These tests were developed and their performance characteristics determined by [facility]. They may not have been cleared or approved by the U.S. Food and Drug Administration. The FDA has determined that such clearance or approval is not necessary. The above immunohistochemical/dualISH markers are ordered and reviewed by the Pathologist. INTERPRETATION: Washings right middle lobe of lung fluid (cell block): Consistent with small cell lung carcinoma. AM:killian 05/31/2021
--- NOTE | 2021-05-26 | FLU_PTH ---
PATIENT: CAPRI CORONEL LOC: [place] U#:[id number] AGE/SX: 60/F ROOM: RE05/26/[address]: Dr. Craig Pretty MD : 1960 BED: DIS: 05/26/2021 SPEC #: [id number] RECD: 05/26/21 14:42 STATUS: GILBERTO WENDY #: [id number] RANJIT: 05/26/21 00:[address]: Craig Pretty DEPT: CYTOLOGY RECD BY: Fatoumata Moreno ENTERED: 05/27/21 07:12 SP TYPE: Fluid OTHR DR: Dr. Sarah Duarte MD Tissues: Bronchus of right middle lobe Procedures: Special Stain Group II Surgery Specimen Level IV Cytospin Fluid HEADER OPERATION: Bronchoscopy with biopsy PRE-OP DIAGNOSIS: Lung mass TISSUE SUBMITTED: Wash RML fluid for cytology DIAGNOSIS CYTOLOGY Washings, right middle lobe of lung fluid (cytospin and cell block): Positive for malignant cells consistent with small cell carcinoma. See comment. AM:killian 05/28/2021 COMMENT Immunohistochemistry ([id number]) supports the above diagnosis. Please correlate with surgical specimen [id number]. Reference is made to the patient's previous EBUS, TBNA ([id number]) in which small cell carcinoma was identified. CYTOLOGY STUDY Slides are reviewed. CYTOLOGY GROSS Received is 15 ml of red, mucoidy, blood fluid labeled with the patient's name and and designated per the requisition as Wash RML. Submitted for cytology preparation including cell block. / killian 05/27/2021 TC:0 CPT: 16607, 50146
--- NOTE | 2021-05-26 13:09 | PCM.HP.BLA ---
History and Physical Date of Admission: 05/26/21 History and physical was completed again just prior to the procedure. All questions were answered. Patient understands that she is at increased risk for cerebrovascular complications given known aneurysm, but also understands that intervention by neurosurgeon will delay any further bronchoscopy by over 3 months. Patient has agreed to move forward with the procedure. The patient does have transportation home Assessment and Plan Assessment and Plan (1) Small cell lung cancer, right middle lobe: Status: Acute Comment: Completed 4 cycles cisplatin, Etoposide and Durvalumab on 01/12/2021. CT on 12/22/2020 showed partial Response with resolution of Right pleural effusion. Now on Maintenance Durvalumab, started on 02/02/2021, due for C4. Counts and Chemistry OK for therapy. CT 05/06/2021 showed R middle lobe collapse, enlargement of mediastinal nodes. (2) Aneurysm: Status: Acute Comment: ICA. (3) COPD (chronic obstructive pulmonary disease): Status: Suspected Qualifiers: COPD type: unspecified COPD Qualified Code(s): J44.9 - Chronic obstructive pulmonary disease, unspecified Plan - Dr. Craig Pretty MD: Discussed with Dr. Gaspar and patient. Standard bronchoscopy is being requested as there does appear to be an endobronchial lesion noted. Patient does have significant mediastinal adenopathy, but delay for EBUS was called and appropriate. Oncology and neurosurgery will discuss on the timing. Did review the risks, benefits and alternatives of standard bronchoscopy and patient was agreeable. Patient will have to be off of Plavix for 5 days prior to the procedure. Patient can likely reinitiate Plavix the day after the procedure. Concern from my perspective is that the ICA cerebral aneurysm may be more life threatening then progression of cancer and may need to proceed initially. Oncology states they will discuss and get back with us on timing. Over 35 minutes spent in [id number] discussion with the patient and Dr. Gaspar reviewing imaging, discussing the risks, benefits and alternatives of bronchoscopy and potential complications of delaying vascular surgery. Await oncology recommendations on timing. Anticipate bronchoscopy for evaluation Plan Details Follow Up: 2 Weeks (BWA) HPI LUNG COLLAPSE Chief Complaint: Abnormal CT Details: Patient is a 60-year-old female, currently under care of Dr. Gaspar, who presents for evaluation secondary to advancing small cell lung carcinoma. Patient reports that she was diagnosed with small cell lung cancer following a bronchoscopy and has been on chemotherapy. Patient has had progression of disease on the most recent CT scan despite immunotherapy. I was asked to evaluate patient for possible repeat bronchoscopy for evaluation of a right middle lobe obstruction. Patient reports that she has had some chest congestion and a cough productive of clear sputum. Patient is reporting intermittent wheezing. Patient does use Symbicort twice daily and albuterol approximately twice daily to control symptoms. Patient believes the studies were slightly worse for the last 2 weeks. Patient has been compliant with her supplemental oxygen. Patient reports her were symptoms were actually 6 weeks ago. Patient has not reported any hemoptysis Patient is currently on Plavix therapy. Patient has a cerebral aneurysm being evaluated by [facility]. Patient was to be on Plavix for 2 weeks prior to and possible intervention on 05/26/2021. Patient states that she is being seen by Dr. Ramos and he is very concerned because of its size but feels that he had she will have a better outcome if she is on Plavix. Review of systems otherwise negative from a constitutional, HEENT, respiratory, cardiovascular, GI, genitourinary, musculoskeletal, skin, neurologic, psychiatric and hematologic system unless stated above. Imaging personally reviewed with the patient CT chest (05/06/2021): Mild loss of consolidation of the right middle lobe suggestive of postobstructive pneumonitis and atelectasis. There is also been progressive enlargement of mediastinal adenopathy. There does appear to be a right middle lobe endobronchial lesion. Intake Vital Signs 05/17/21 12:54 Height 5 ft 4 in Weight: 79.379 kg BMI 30.0 BP 104/60 Blood Pressure Location Rt brachial Position Sitting Respiration 16 Pulse 79 Pulse Source Monitor Temp 36.8 C Temperature Source Temporal Artery Pulse Oximetry (%) 96 Oxygen Delivery Method nasal canula Oxygen Flow Rate (L/min) 3 Intake Visit Reasons: LUNG COLLAPSE DME Vendor: [employer] Allergies No Known Allergies Allergy (Verified 05/11/21 10:34) Medications nitroglycerin 0.4 mg SL Q5M PRN 07/03/13 [History Confirmed 05/17/21] dicyclomine 10 - 20 mg PO TID PRN PRN 11/20/19 [History Confirmed 05/17/21] metformin 1,000 mg PO BID 11/20/19 [History Confirmed 05/17/21] pantoprazole 40 mg PO DAILY 11/20/19 [History Confirmed 05/17/21] insulin glargine 25 unit SC QAM 07/24/20 [History Confirmed 05/17/21] lidocaine-prilocaine 2.5 %-2.5 % topical cream 1 applic TOPICAL ONCE PRN 30 Days #30 g 10/19/20 [Rx Confirmed 05/17/21] ondansetron 8 mg disintegrating tablet 8 mg PO Q8H PRN #30 tab 10/19/20 [Rx Confirmed 05/17/21] insulin aspart U-100 100 unit/mL (3 mL) subcutaneous pen 20 unit SC TID #18 ml 12/04/20 [Rx Confirmed 05/17/21] dulaglutide 1.5 mg/0.5 mL subcutaneous pen injector 1.5 mg SUBCUT FR #2 ml 12/14/20 [Rx Confirmed 05/17/21] hydrocodone-acetaminophen 5-325mg 5mg-325mg 1 tab PO BID PRN 12/14/20 [History Confirmed 05/17/21] alprazolam 0.25 mg tablet 0.25 mg PO DAILY PRN #10 tab 02/10/21 [Rx Confirmed 05/17/21] atorvastatin 40 mg tablet 40 mg PO QHS #90 tablet 02/10/21 [Rx Confirmed 05/17/21] albuterol sulfate 90 mcg/actuation aerosol inhaler 2 puff INHALATION Q4H PRN PRN #8.5 g 03/02/21 [Rx Confirmed 05/17/21] budesonide-formoterol HFA 160 mcg-4.5 mcg/actuation aerosol inhaler 2 puff INHALATION BID #10.2 g 03/02/21 [Rx Confirmed 05/17/21] fluoxetine 20 mg capsule 60 mg PO DAILY #90 cap 03/03/21 [Rx Confirmed 05/17/21] azithromycin 250 mg tablet See Rx Instructions PO .COMPLEX #6 tab 03/18/21 [Rx Confirmed 05/17/21] benztropine 0.5 mg tablet 0.5 mg PO BID #60 tab 03/18/21 [Rx Confirmed 05/17/21] lisinopril 10 mg tablet 10 mg PO DAILY #90 tab 03/29/21 [Rx Confirmed 05/17/21] potassium chloride 20 mEq tablet,extended release(part/cryst) 20 meq PO BIDCM #60 tab 03/30/21 [Rx Confirmed 05/17/21] metoprolol tartrate 50 mg tablet 50 mg PO BID #60 tab 04/05/21 [Rx Confirmed 05/17/21] furosemide 40 mg tablet 40 mg PO DAILY 30 Days #30 tab 04/19/21 [Rx Confirmed 05/17/21] aspirin 325 mg tablet,delayed release 325 mg PO DAILY 05/07/21 [History Confirmed 05/17/21] clopidogrel 75 mg tablet 75 mg PO tab 05/07/21 [History Confirmed 05/17/21] magnesium oxide 200 mg PO BID #120 tab 05/11/21 [Rx Confirmed 05/17/21] sodium chloride 1 gram tablet 1,000 mg PO DAILY #90 tab 05/11/21 [Rx Confirmed 05/17/21] PFS Medical History Anxiety Atherosclerosis of [place] coronary artery of [place] heart without angina pectoris Cancer Carcinoma, lung Cardiac dysrhythmia Congestive heart failure COPD (chronic obstructive pulmonary disease) Coronary artery disease Cough Depression Diarrhea due to drug DVT (deep venous thrombosis) Edema Electrolyte abnormality Encounter for chemotherapy management Encounter for immunotherapy Former smoker Gastric reflux GERD (gastroesophageal reflux disease) Hiatal hernia History of blood transfusion History of fatty infiltration of liver Hyperlipidemia Hypertension Hypokalemia Hypomagnesemia Injury of head and neck Loose, teeth Low iron Lower extremity edema Myocardial infarct On home oxygen therapy Oxygen dependent Presence of stent in coronary artery (~05/2011) Restless legs Shortness of breath on exertion Sinus drainage Syncope Tremor Type II diabetes mellitus Uses wheelchair Vertigo Wears partial dentures Surgical History H/O arthroscopic knee surgery H/O elbow surgery History of carpal tunnel surgery History of cholecystectomy History of lumbar surgery History of tubal ligation Hx of biopsy Presence of coronary angioplasty implant and graft Family History Father , Age 56 Myocardial infarction Heart disease COPD (chronic obstructive pulmonary disease) Mother COPD (chronic obstructive pulmonary disease) Heart disease Social History household members: spouse housing: house current occupational status: retired Smoking Status: Former smoker quit date: 06/19/13 pack-years: 35 Tobacco: How many years used: 37 how long ago did patient quit smokin years ago second hand exposure: No alcohol intake: never substance use type: does not use caffeine: Yes Type: carbonated beverages Number of servings: 2 and coffee Number of servings: 2 eating out: 1-3 times/week during the past year weight has: increased > 10 lbs lizette/yarsani: Holiness seatbelt use: always do you feel safe at home: Yes Exam Const Constitutional: Positive conversant, cooperative, in no acute respiratory distress, well developed, well nourished, good hygiene and obese Head Head: Yes normocephalic, Yes atraumatic and No cyanosis of lips/distal nose Alopecia Eyes Eye: Positive clear conjunctiva; Negative nystagmus, scleral abnormality or cataract present Ears Ear: Positive hearing normal and external ears normal; Negative hard of hearing Nose Nose: Yes external nose normal, No nasal polyp and Yes septum normal Mouth Mouth: Positive oral mucosae normal, no lesions and good dentition; Negative oral thrush present or post nasal drip Mallampati Score: II: Mallampati Score Neck Neck: Positive normal visual inspection, full ROM and trachea midline; Negative lymphadenopathy or JVD Chest Wall Chest: Positive normal inspection of the chest and symmetric chest movement; Negative crepitus or tenderness Left chest port Resp lung sounds: Positive diminished lung sounds (Anterior) diminished: Positive right; Negative wheezes, wheeze present on forced exhalation, rhonchi, rales, dullness or use of accessory muscles Cardio Cardiac: Positive regular rate, regular rhythm, S1 normal and S2 normal; Negative murmur, rub or gallop GI GI: Positive normal to inspection, normal bowel sounds and obese; Negative distended, ascites or epigastric tenderness Genitourinary: Positive deferred Musc Musculoskeletal: Positive steady gait; Negative using an assistive device for ambulation, kyphosis or scoliosis Skin Pulmonary Skin Exam: Positive intact; Negative lesion, rash, ulcers or erythema Pulses Pulse: Yes radial pulses present Extremities Extremities: Yes capillary refill normal, No clubbing, No cyanosis and No edema Neuro Neurologic: Yes no focal neuro deficits, Yes conversant, Yes cooperative, Yes normal cognition, Yes normal coordination, Yes normal concentration and Yes understands questions Lymph Lymphatic: No lymphadenopathy Psych Appearance: Positive grossly normal Mental Status: Positive mental status grossly normal Mood: Positive congruent mood Affect: Positive normal affect Assessment & Plan Assessment/Plan (1) Small cell lung cancer, right middle lobe: (2) Aneurysm: (3) Congestive heart failure: (4) Lower extremity edema: (5) Presence of stent in coronary artery: (6) Type II diabetes mellitus: QUALIFIERS: Diabetes mellitus complication status: with hyperglycemia Diabetes mellitus termite control servicer insulin use: with termite control servicer use Qualified Code(s): E11.65 - Type 2 diabetes mellitus with hyperglycemia; Z79.4 - terminologist (current) use of insulin PLAN: Proceed with bronchoscopy to evaluate right middle lobe obstruction. Patient can reinitiate Plavix tomorrow and arrange for cerebral intervention per neurosurgeon.
[2021-05-26 13:30] LABS: Bedside Glucose 132 mg/dL (70-110)
[2021-05-26] MEDS: Lactated Ringers 1,000 ML 15 ML IV (13:45)
[2021-05-26] MEDS: Lidocaine 2% (5ml sdv) 5 ML VIAL.MPF (14:06)
[2021-05-26] MEDS: Lidocaine 2% Jelly 1 APPLIC Tube (14:06)
--- NOTE | 2021-05-26 14:36 | EKG12_ITS ---
Test Reason : POST OP AFIB Blood Pressure : / mmHG Vent. Rate : 093 BPM Atrial Rate : 093 BPM P-R Int : 176 ms QRS Dur : 098 ms QT Int : 400 ms P-R-T Axes : 064 -58 044 degrees QTc Int : 497 ms Normal sinus rhythm Left axis deviation Septal infarct (cited on or before 24-JUL-2020) Abnormal ECG When compared with ECG of 18-NOV-2020 14:38, Premature supraventricular complexes are no longer Present Questionable change in initial forces of Anterior leads Confirmed by TESSA KAN, VISH ([id number]), content editor JOSE GUADALUPE ALLEN ([id number]) on 06/01/2021 7:37:07 AM Referred By: Sarah Duarte Confirmed By:VISH ZARATE MD
[2021-05-26 14:46] LABS: Cytology, Body Fluid / CSF SEE PATHOLOGY REPORT
--- NOTE | 2021-05-26 14:55 | OP.BRONCH_ITS ---
Patient Name: Heather Sinha Procedure Date: 05/26/2021 1:22 PM Date of : 1960 Age: 60 Procedure: Bronchoscopy Indications: Mediastinal adenopathy, Atelectasis of the right middle lobe Providers: Craig Pretty MD Medicines: See the Anesthesia note for documentation of the administered medications Complications: Supraventricular tachycardia (SVT) Procedure: Pre-Anesthesia Assessment: - A History and Physical has been performed. Patient meds and allergies have been reviewed. The risks and benefits of the procedure and the sedation options and risks were discussed with the patient. All questions were answered and informed consent was obtained. Patient identification and proposed procedure were verified prior to the procedure by the physician, the nurse and the manager food beverage in the procedure room. Mental Status Examination: alert and oriented. Airway Examination: normal oropharyngeal airway. Respiratory Examination: clear to auscultation. CV Examination: irregularly irregular rate and rhythm. Prior Anticoagulants: The patient has taken Plavix (clopidogrel), last dose was 5 days prior to procedure. ASA Grade Assessment: III - A patient with severe systemic disease. After reviewing the risks and benefits, the patient was deemed in satisfactory condition to undergo the procedure. The anesthesia plan was to use monitored anesthesia care (MAC). Immediately prior to administration of medications, the patient was re-assessed for adequacy to receive sedatives. The heart rate, respiratory rate, oxygen saturations, blood pressure, adequacy of pulmonary ventilation, and response to care were monitored throughout the procedure. The physical status of the patient was re-assessed after the procedure. After I obtained informed consent, the scope was passed under direct vision. Throughout the procedure, the patient's blood pressure, pulse, and oxygen saturations were monitored continuously. The bronchoscope was introduced through the mouth and advanced to the tracheobronchial tree. The procedure was unusually difficult due to the patient's respiratory instability (hypoxia) and the patient's cardiovascular instability (SVT requiring pausing of procedure and betablockers). Successful completion of the procedure was aided by adding supplemental oxygen and esmolol. The patient tolerated the procedure. Findings: The nasopharynx/oropharynx appears normal. The larynx appears normal. The vocal cords appear normal. The subglottic space is normal. The trachea is of normal caliber. The ender is sharp. The tracheobronchial tree of the left lung was examined to at least the first subsegmental level. Bronchial mucosa and anatomy in the left lung are normal; there are no endobronchial lesions, and no secretions. There was an element of dynamic collapse, 80%, noted in trachea and main bronchi. Right Lung Abnormalities: A partially obstructing (about 90% obstructed) mass was found in the middle portion in the right middle lobe. The mass was small and exophytic, friable and fungating. The lesion was not traversed. Washings were obtained in the right middle lobe and sent for routine cytology. The return was bloody. Multiple specimens were obtained and pooled into one specimen, which was sent for analysis. Endobronchial biopsies were performed in the right middle lobe using forceps and sent for histopathology examination. Five samples were obtained. Estimated blood loss: 10 mL. Impression: - Mediastinal adenopathy - Atelectasis of the right middle lobe - The airway examination of the left lung was normal. - An exophytic, friable and fungating mass was found in the right middle lobe. This lesion is likely malignant. - Washings were obtained. - An endobronchial biopsy was performed. - A neoplasm is suspected in the right middle lobe. Recommendation: - The patient will be observed post-procedure, until all discharge criteria are met. - Await biopsy and washing results. - Patient has a contact number available for emergencies. The signs and symptoms of potential delayed complications were discussed with the patient. Return to normal activities tomorrow. Written discharge instructions were provided to the patient. Procedure Code(s): --- Professional --- 06715, Bronchoscopy, rigid or flexible, including fluoroscopic guidance, when performed; with bronchial or endobronchial biopsy(s), single or multiple sites Diagnosis Code(s): --- Professional --- J98.11, Atelectasis R59.0, Localized enlarged lymph nodes J98.9, Respiratory disorder, unspecified CPT copyright 2017 [employer]. All rights reserved. The codes documented in this report are preliminary and upon bar pointer review may be revised to meet current compliance requirements. MD Craig Ron MD 05/26/2021 2:55:10 PM This report has been signed electronically. Number of Addenda: 0 Note Initiated On: 05/26/2021 1:22 PM
--- NOTE | 2021-05-26 14:59 | SUR.PHASEI ---
on arrival to [facility] the patient's compliance monitor showing atrial fib with rate ranging from 100's to 150's, bp 74/45. Respirations easy and unlabored with rate of 16 and o2 sat 98% on 5l per nc. patient does wear 3l per nc at home. The patient denies any pain or shortness of breath. Harsh cough noted with clear thick mucous. Approximately ten minutes after arrival the patient's showing nsr with rate in 90s. Respiratory at bedside obtaining 12 lead EKG and showed NSR.
== END 2021-05-26 16:02 | disposition home or self-care (01) ==
LOC: EN 12:53 → AC 12:54
PROVIDERS: PCP Internal Medicine; Referring Provider Internal Medicine; Visit Provider Internal Medicine Critical Care Medicine
PROC: 0BJ08ZZ Inspection of Tracheobronchial Tree, Via Natural or Artificial Opening Endoscopic (ICD-10-PCS; CPT 31622; principal; 2021-05-26 13:45)
DX: C34.2 Malignant neoplasm of middle lobe, bronchus or lung (principal); J98.11 Atelectasis; I47.1 Supraventricular tachycardia; I25.10 Atherosclerotic heart disease of native coronary artery without angina pectoris; I11.0 Hypertensive heart disease with heart failure; I50.9 Heart failure, unspecified; I25.2 Old myocardial infarction; E78.5 Hyperlipidemia, unspecified; K21.9 Gastro-esophageal reflux disease without esophagitis; J44.9 Chronic obstructive pulmonary disease, unspecified; E11.9 Type 2 diabetes mellitus without complications; F41.9 Anxiety disorder, unspecified; F32.A Depression, unspecified; E66.9 Obesity, unspecified; Z68.29 Body mass index [BMI] 29.0-29.9, adult; Z87.891 Personal history of nicotine dependence; Z95.5 Presence of coronary angioplasty implant and graft; Z86.718 Personal history of other venous thrombosis and embolism; Z99.81 Dependence on supplemental oxygen; Z79.82 Long term (current) use of aspirin; Z79.4 Long term (current) use of insulin; Z79.84 Long term (current) use of oral hypoglycemic drugs; Z79.899 Other long term (current) drug therapy
CPT/HCPCS: 31625; 82962; 88108; 88305; 88313; 88341; 88342; 93005; J7120; A4216

== ENCOUNTER 2021-08-05 17:12 | Outpatient (CLI) | payer MEDICAID, SELFPAY ==
--- NOTE | 2021-08-05 17:25 | CT_ITS ---
EXAM: CT CHEST AND ABDOMEN WITH INTRAVENOUS CONTRAST CLINICAL INDICATION: ASSESS TREATMENT RESPONSE TECHNIQUE: Helically acquired images were obtained of the chest and abdomen with intravenous contrast. This CT exam was performed using one or more of the following dose reduction techniques: automated exposure control, adjustment of the mA and/or kV according to patient size, and/or use of iterative reconstruction technique. This report was created using [employer] report generation technology. CONTRAST: IV 100mL Isovue-300 COMPARISON: May 06 2021 1:34pm FINDINGS: CHEST: LUNGS AND PLEURAL SPACES: Bilateral groundglass infiltrate suggesting entrapment. Lobulated mass along the anterior mediastinum measuring 30 x 44 mm. Series 2 image 43. 20 mm mass in the posterior mediastinum. There is a mass extending to the right hilum. HEART: There are coronary arterial calcifications. Heart size is normal. No pericardial effusion. MEDIASTINUM: Minimal improvement in the mass surrounding the mediastinum and right hilum. No mediastinal or hilar adenopathy. Esophagus is unremarkable. No hiatal hernia. THYROID: Unremarkable. No thyroid lesions. ABDOMEN: LIVER: There is periportal edema noted. GALLBLADDER AND BILE DUCTS: The gallbladder is surgically absent. No intra- or extrahepatic biliary ductal dilation. PANCREAS: Unremarkable. No focal cystic or solid mass. SPLEEN: Unremarkable. Normal size without focal cystic or solid mass. ADRENALS: Stable thickening of the left adrenal gland. KIDNEYS AND URETERS: There are hypodensities in both kidneys. These are consistent for cysts. No follow up required. Retroaortic left renal vein. Normal renal size and position. No hydronephrosis. STOMACH AND BOWEL: Unremarkable. No stomach or bowel distention. No focal inflammatory change. INTRAPERITONEAL SPACE: Unremarkable. No ascites or other fluid collection. No free air. CHEST and ABDOMEN: BONES/JOINTS: Kyphoplasty changes at L1. There is kyphoplasty / vertebroplasty changes are noted in the spine. Kyphoplasty Changes of L3. Lumbar spinal fixation hardware noted. Stabilized grade 1 anterolisthesis of L5 on S1. No suspicious lytic or blastic abnormality. SOFT TISSUES: Unremarkable. No discrete abdominal wall hernia. VASCULATURE: There are calcifications of the abdominal aorta. This is consistent for atherosclerotic disease. There is no abdominal aortic aneurysm. There are thoracic aortic calcifications consistent for atherosclerotic disease. There is no dissection or hematoma noted in the thoracic aorta. LYMPH NODES: Unremarkable. No enlarged lymph nodes. TUBES, LINES AND DEVICES: There is a left Port-A-Cath and/or mediport in place. The tip is in the superior vena cava. CT/CT Chest AND Abd W/ Contrast IMPRESSION: Minimal improvement in the mass surrounding the mediastinum and right hilum. Electronically Signed: Adam Sheridan MD at 22:00 EST Reading Location ID and State: [facility] / [place] , Service support ,
== END 2021-08-05 23:59 | disposition home or self-care (01) ==
LOC: CT 17:13
PROVIDERS: PCP Internal Medicine; Visit Provider Internal Medicine Medical Oncology
DX: C34.2 Malignant neoplasm of middle lobe, bronchus or lung (principal)
CPT/HCPCS: 71260; 74160; Q9967

== ENCOUNTER → 2021-10-07 | Outpatient (CLI) | payer MEDICAID, SELFPAY ==
--- NOTE | 2021-10-07 15:54 | CT_ITS ---
STUDY: CT CHEST, ABDOMEN T PELVIS WITH CONTRAST REASON FOR EXAM: Female, 61 years old. ASSESS TREATMENT REPONSE-LUNG CA RADIATION DOSAGE (If Supplied By Facility): CTDIvol = ( 15.28 ) mGy, DLP = ( 1388.77 ) mGycm TECHNIQUE: Transaxial imaging was performed following intravenous administration of IV 100mL Isovue-300. Individualized dose optimization techniques were used for this CT. COMPARISON: No relevant priors. FINDINGS: CHEST LUNGS: No consolidation. There is a 5 mm nodule in the right upper lobe which was not present on the prior. Reticular nodular changes adjacent to the anterior mediastinum in the right upper lobe is slightly decreased. Reticular opacities also in the left upper lobe unchanged. Nodular thickening extending inferiorly from the right hilar mass along the fissure is increased. PLEURA: No pleural effusion. No pneumothorax. MEDIASTINUM: Anterior mediastinal mass lobulated largest component approximately 3.8 x 2.4 cm not significantly changed. Subcarinal mass slightly larger, 2.9 x 2.8 cm compared to 2.7 x 2.4 cm. Right hilar mass 2.5 x 2.2 cm slightly larger compared to 2.3 x 2 cm. The larger component in the right hilum 5 x 2.2 cm not significantly changed. Other mediastinal masses not significantly changed. Relative narrowing of the SVC adjacent to the paratracheal and mediastinal adenopathy slightly increased although without obvious obstruction. HEART: Not enlarged. AORTA: Normal caliber. BONES/SOFT TISSUES: No acute abnormalities. OTHER: Indwelling central venous catheter tip in the right atrium.. ABDOMEN PELVIS LIVER: Unremarkable. GALLBLADDER/BILE DUCTS: Gallbladder surgically absent. PANCREAS: Unremarkable. SPLEEN: Unremarkable. ADRENAL GLANDS: Nodular thickening left adrenal not significantly changed.. KIDNEYS / URETERS: Small cysts in the kidneys. BOWEL / MESENTERY: Unremarkable. No bowel obstruction. APPENDIX: Not identified. PERITONEUM: No free air. No free fluid. VESSELS: Abdominal aorta is normal caliber. RETROPERITONEUM: Unremarkable. REPRODUCTIVE ORGANS: Unremarkable. BLADDER: Unremarkable. ABDOMINAL WALL: Unremarkable. BONES: Surgical hardware in the lower lumbar spine transfixing anterolisthesis at L5-S1. Vertebroplasty changes at L1 L3. No acute abnormality. OTHER: None. CT/CT Chest AND Abd W/ Contrast IMPRESSION: 1. Majority of the mediastinal and right hilar mass is not significantly changed although small component in the right hilum and subcarinal slightly larger. 2. New right upper lobe pulmonary nodule 5 mm. Slight increased nodular thickening extension along the fissure from the right hilum. 3. Slight increased narrowing of the SVC without obvious obstruction. 4. Stable left adrenal thickening. 5. No acute intra-abdominal findings. Electronically Signed: Cammy Maurer MD at 4:23 EDT ,
[2021-10-07] MEDS: 0.9% Saline Lock 10 ML Syringe IV (16:21)
== END | disposition home or self-care (01) ==
LOC: CT 15:52
PROVIDERS: PCP Internal Medicine; Visit Provider Internal Medicine Medical Oncology
DX: C34.2 Malignant neoplasm of middle lobe, bronchus or lung (principal)
CPT/HCPCS: 71260; 74160; Q9967; A4216

== ENCOUNTER 2021-10-30 11:33 | Emergency (ER) | payer MEDICAID, SELFPAY ==
[2021-10-30] VITALS (12 sets, daily range): BP systolic 83–104; BP diastolic 40–57; PULSE 85–98; RESP 19–32; TEMP 36.9–37.6; O2SAT 97–100; BMI 26.3
--- NOTE | 2021-10-30 12:02 | RAD_ITS ---
STUDY: X-RAY CHEST REASON FOR EXAM: Female, 61 years old. Shortness of breath. TECHNIQUE: Single AP portable view of the chest. COMPARISON: 09/14/2021 FINDINGS: Left internal jugular chest port which is unchanged. The lungs are clear and expanded. There is no demonstrated pleural abnormality. Normal size heart. Normal mediastinum and melinda. Normal visualized pulmonary arteries. Normal visualized aortic arch and descending thoracic aorta. Normal visualized thoracic spine. Normal visualized ribs, clavicles, and shoulders. There is no demonstrated abnormality of the visualized soft tissue structures of the upper abdomen. RAD/Chest 1 View (Portable) IMPRESSION: No active disease. Electronically Signed: Junior Chambers MD at 13:06 EDT ,
--- NOTE | 2021-10-30 12:03 | EKG12_ITS ---
Test Reason : SOB Blood Pressure : / mmHG Vent. Rate : 093 BPM Atrial Rate : 093 BPM P-R Int : 164 ms QRS Dur : 108 ms QT Int : 412 ms P-R-T Axes : 070 -58 082 degrees QTc Int : 512 ms Normal sinus rhythm Left axis deviation Septal infarct , age undetermined T wave abnormality, consider lateral ischemia Prolonged QT Abnormal ECG Confirmed by TESSA KAN, VISH ([id number]), acquisitions editor JOSE GUADALUPE ALLEN ([id number]) on 11/01/2021 1:56:04 PM Referred By: FREDIS Confirmed By:VISH ZARATE MD
--- NOTE | 2021-10-30 12:06 | EX.ED.DYSGE1 ---
HPI History of Present Illness Chief Complaint: Alt LOC Informant: patient and family Onset/Context/Timing Onset: Today Context: Gradual Onset Timing: Continuous Current Severity: Mild Maximum Severity: Mild Narrative Narrative: 61-year-old female extensive past medical history of COPD and lung cancer which was ongoing chemotherapy last treatment was this past week. Also known history of diabetes and CHF. CAD with a stent. On Plavix. He states that her oxygen is running around 90% on 3 L at home and she seems more confused than her baseline. Recently she has had nausea vomiting and diarrhea but no cough or chest pain. She denies any dysuria. She denies any falls or head trauma. Prior similar symptoms: No Recent Illness/Hospitalization: No PFSH PFSH Medical History Anxiety Atherosclerosis of [place] coronary artery of [place] heart without angina pectoris Brain aneurysm Cancer Carcinoma, lung Cardiac dysrhythmia Cardiology follow-up encounter Congestive heart failure COPD (chronic obstructive pulmonary disease) Coronary artery disease Cough Depression Diarrhea Diarrhea due to drug DVT (deep venous thrombosis) Edema Electrolyte abnormality Encounter for chemotherapy management Encounter for immunotherapy Former smoker Gastric reflux GERD (gastroesophageal reflux disease) Hiatal hernia History of blood transfusion History of echocardiogram History of fatty infiltration of liver History of stress test Hyperlipidemia Hypertension Hypokalemia Hypomagnesemia Injury of head and neck Loose, teeth Low iron Lower extremity edema Myocardial infarct On home oxygen therapy Oxygen dependent Presence of stent in coronary artery (~05/2011) Restless legs Shortness of breath on exertion Sinus drainage Syncope Tremor Type II diabetes mellitus Uses wheelchair Vertigo Wears partial dentures Home Medications nitroglycerin 0.4 mg SL Q5M PRN 07/03/13 [History Last Taken 06/19/12 0.4] dicyclomine 10 - 20 mg PO TID PRN PRN 11/20/19 [History Last Taken 10/27/20] lidocaine-prilocaine 2.5 %-2.5 % topical cream 1 applic TOPICAL ONCE PRN 30 Days #30 g 10/19/20 [Rx Last Taken Unknown] atorvastatin 40 mg tablet 40 mg PO QHS #90 tablet 02/10/21 [Rx Last Taken Unknown] aspirin 325 mg tablet,delayed release 325 mg PO DAILY 05/07/21 [History Last Taken Unknown] clopidogrel 75 mg tablet 75 mg PO DAILY tab 11/19/21 [History Last Taken 05/22/21] magnesium oxide 200 mg PO BID #120 tab 05/11/21 [Rx Last Taken Unknown] budesonide-formoterol [Symbicort] 2 puff INHALATION BID 05/24/21 [History Last Taken Unknown] insulin aspart U-100 [Novolog Flexpen U-100 Insulin] 12 - 14 unit SC TID 05/24/21 [History Last Taken Unknown] ondansetron 8 mg disintegrating tablet 8 mg PO Q8H PRN #30 tab 06/08/21 [Rx Last Taken Unknown] albuterol sulfate 90 mcg/actuation aerosol inhaler 2 puff INHALATION Q4H PRN PRN #8.5 g 06/21/21 [Rx Last Taken Unknown] fluoxetine 20 mg capsule 60 mg PO DAILY 90 Days #270 cap 06/21/21 [Rx Last Taken Unknown] lisinopril 10 mg tablet 10 mg PO DAILY #90 tab 06/21/21 [Rx Last Taken Unknown] metoprolol tartrate 50 mg tablet 50 mg PO BID 90 Days #180 tab 06/21/21 [Rx Last Taken Unknown] pen needle, diabetic 32 gauge x 32 #150 ea 06/24/21 [Rx Last Taken Unknown] alprazolam 0.25 mg tablet 0.25 mg PO DAILY PRN #10 tab 07/30/21 [Rx Last Taken Unknown] buspirone 7.5 mg tablet 7.5 mg PO TID 90 Days #270 tab 07/30/21 [Rx Last Taken Unknown] Lantus Solostar U-100 Insulin 100 unit/mL (3 mL) subcutaneous pen 20 unit SC QAM #18 ml NS 08/17/21 [Rx Last Taken Unknown] Trulicity 1.5 mg/0.5 mL subcutaneous pen injector 1.5 mg SUBCUT FR #6 ml NS 08/17/21 [Rx Last Taken Unknown] pantoprazole 20 mg tablet,delayed release 40 mg PO DAILY #90 tab 09/02/21 [Rx Last Taken Unknown] metformin 1,000 mg tablet 1,000 mg PO BID #180 tab 09/03/21 [Rx Last Taken Unknown] sodium chloride 1 gram tablet 1,000 mg PO DAILY #90 tab 09/15/21 [Rx Last Taken Unknown] potassium chloride 20 mEq tablet,extended release See Rx Instructions .ROUTE .COMPLEX #30 tab 10/11/21 [Rx Last Taken Unknown] furosemide 40 mg tablet 40 mg PO DAILY 30 Days #30 tab 10/25/21 [Rx Last Taken Unknown] Allergy/AdvReac Type Severity Reaction Status Date / Time No Known Allergies Allergy Verified 10/27/21 09:08 Family History Father , Age 56 Myocardial infarction Heart disease COPD (chronic obstructive pulmonary disease) Mother COPD (chronic obstructive pulmonary disease) Heart disease Surgical History H/O arthroscopic knee surgery H/O elbow surgery History of cardiac catheterization History of carpal tunnel surgery History of cholecystectomy History of coronary artery stent placement History of lumbar surgery History of tubal ligation Hx of biopsy Presence of coronary angioplasty implant and graft Social History household members: spouse housing: house current occupational status: retired Smoking Status: Former smoker quit date: 06/19/13 pack-years: 35 Tobacco: How many years used: 37 how long ago did patient quit smokin years ago second hand exposure: No alcohol intake: never substance use type: does not use caffeine: Yes Type: carbonated beverages Number of servings: 2 and coffee Number of servings: 2 eating out: 1-3 times/week during the past year weight has: increased > 10 lbs lizette/moravian: Hindu seatbelt use: always do you feel safe at home: Yes ROS ROS ED ROS Narrative Shortness of breath. Confusion. Recent nausea, vomiting and diarrhea. Review of Systems ROS Unobtainable: Denies due to encephalopathy Constitutional Constitutional ED: Denies fever(s) Eyes Eyes: Denies change in vision ENT ENT ED: Denies ear pain, rhinorrhea or sore throat Cardiovascular Cardiovascular: Denies chest pain Respiratory/Chest Respiratory/Chest: Reports dyspnea; Denies cough Gastrointestinal Gastrointestinal: Reports diarrhea, nausea and vomiting; Denies abdominal pain Genitourinary Genitourinary ED: Denies dysuria Musculoskeletal Musculoskeletal: Denies myalgias Integumentary Denies rash Neurologic Neurologic: Denies headache(s) Psychiatric Psychiatric: Denies depression Endocrine Endocrinology: Denies polyuria Allergic/Immunologic Allergic/Immunologic ED: Denies urticaria EXAM Physical Exam Narrative Exam Narrative: 632. No acute distress. Temperature nine 9.7. Does not look septic or toxic. H EENT exam unremarkable atraumatic. Moist remembers. Neck nontender no JVD. No lymphadenopathy. Lungs coarse breath sounds but no rales nor rhonchi. Few scattered expiratory wheezes. Heart regular rate and rhythm no murmur. Abdomen soft nontender. Moving all 4 extremities. Nontender. Normal [employer] strength. Normal dorsi plantar flexion. Neurologically she is awake. She knows where she is at. She answers questions and follows commands. She is mildly slow sometimes respond. Const Vital Signs: 10/30/21 11:35 10/30/21 11:38 10/30/21 11:41 Temperature 99.7 F H 99.7 F H Temperature Source Temporal Temporal Pulse Rate 98 96 Respiratory Rate 29 H 32 H Respiratory Effort Normal Non-Labored Respiratory Pattern Tachypnea Blood Pressure 104/57 L 104/57 L Blood Pressure Mean 72 72 Pulse Ox 98 98 Oxygen Delivery Method Nasal Cannula Nasal Cannula Oxygen Flow Rate (L/min) 3 3 10/30/21 12:00 10/30/21 12:38 10/30/21 13:00 Temperature 99.1 F Temperature Source Temporal Pulse Rate 94 92 88 Respiratory Rate 30 H 25 H 29 H Respiratory Effort Respiratory Pattern Blood Pressure 99/51 L 96/53 L 91/46 L Blood Pressure Mean 67 67 61 Pulse Ox 99 100 100 Oxygen Delivery Method Nasal Cannula Nasal Cannula Nasal Cannula Oxygen Flow Rate (L/min) 3 3 10/30/21 13:19 10/30/21 13:38 10/30/21 14:49 Temperature 98.4 F Temperature Source Temporal Pulse Rate 88 Respiratory Rate 29 H Respiratory Effort Respiratory Pattern Blood Pressure 86/42 L 92/50 L Blood Pressure Mean 56 64 Pulse Ox 98 99 Oxygen Delivery Method Nasal Cannula Nasal Cannula Oxygen Flow Rate (L/min) 3 3 Positive well nourished and well developed; Negative for obese, cachectic, contractures or unkempt General Appearance ED: well developed and NAD; Negative for unkempt, cachectic, contractures, cyanotic, diaphoretic or pallor Nutritional Appearance: Negative for cachectic or obese HEENT Reports moist mucous membranes Negative for trauma or tenderness Eyes PERRL and EOMs intact bilaterally General Eye ED: Negative for pale conjunctiva or scleral icterus Neck no lymphadenopathy, supple and no JVD General: Negative for tenderness Chest Wall inspection of chest normal; Negative for palpation of chest normal Resp normal respiratory effort and No clear to auscultation bilaterally Effort and Inspection: Negative for pain with movement Auscultation: wheezes; Negative for rales or rhonchi Cardio regular rate, regular rhythm, S1 normal heart sound, S2 normal heart sound and no murmurs Palpation: Negative for palpable S3 or palpable S4 GI normal to inspection, nondistended, normoactive bowel sounds, non-tender, non-distended and no masses Auscultation: normoactive bowel sounds Palpation: soft; Negative for tender, guarding or rebound tenderness present Back/Spine no CVA tenderness General Back: Negative for CVA tenderness Cervical Spine: Negative for cervical spine tenderness Thoracic Spine / Upper Back: Negative for thoracic spinal tenderness or paraspinal muscle tenderness Extremity normal to inspection General Extremety ED: Negative for edema or tenderness General Extremity: Negative for edema Neuro oriented x3 Sensorium / Orientation: alert and orientation impaired; Negative for lethargic or stuporous Motor Exam: strength 5/5 throughout; Negative for general weakness Psych mental status grossly normal Appearance: Negative for unkempt Attitude: No agitated Mood & Affect: Negative for depressed, anxious or tearful Skin no rashes or lesions noted and no wounds General Skin Exam: Negative for jaundice or pallor MDM MDM MDM Narrative Medical decision making narrative: 61-year-old female with COPD, diabetes, lung cancer and cardiac history on chemotherapy. Shortness of breath with decreased mental status. Multiple repeat exams unchanged. Patient received a liter half of fluid her blood pressure progressively improving. Systolic is in the mid 90s on a manual blood pressure. CAT scan is concerning for a left posterior parenchymal 1 cm acute intracranial bleed. There is no mass-effect. There is no edema. I discussed this at length with the patient and family at bedside. They do want us to be evaluated. I have [facility] transfer line on page. Currently due to weather they are not flying so transport will need to be by ground. Lab Data Attestation: I reviewed the patient's lab results. Lab results narrative: CBC shows a white count 8.7. H&H 9.7 and 28. Platelets are low also of 81,000. She has a baseline anemia and her platelet counts have been decreasing. Chemistry shows sodium 129 potassium 3.1. Gap of 14 BUN and creatinine elevated at 52 and 2.71 consistent with dehydration and acute kidney injury. Glucose 210 liver enzymes are unremarkable. UA negative. Chest x-ray shows chronic changes. Acute blood gas unremarkable. pH 7.33. PCO2 was 28. PO2 of 112. Sat 98%. On 3 L. Lactic acid is normal at 1.4. Labs: Laboratory Results - last 24 hr 10/30/21 10/30/21 10/30/21 12:21 12:21 12:50 WBC 8.7 RBC 2.83 L Hgb 9.7 L Hct 28.3 L MCV 100.0 H MCH 34.3 H MCHC 34.3 RDW Std Deviation 58.8 H RDW Coeff of [place] 16.1 H Plt Count 81 L MPV 9.6 Immature Gran % (Auto) 1.300 H Neut % (Auto) 86.0 H Lymph % (Auto) 3.8 L [place] % (Auto) 8.7 Eos % (Auto) 0.0 Baso % (Auto) 0.2 Absolute Neuts (auto) 7.5 Absolute Lymphs (auto) 0.33 L Nucleated RBC % 0 Platelet Estimate MOD DEC Sodium 129 L Potassium 3.1 L Chloride 100 Carbon Dioxide 15.0 L Anion Gap 14 BUN 52 H Creatinine 2.71 H Estim Creat Clear Calc 18.35 Est GFR (MDRD) Af Amer 23 L Est GFR (MDRD) Non-Af 19 L BUN/Creatinine Ratio 19.2 Glucose 210 H Lactic Acid Calcium 7.8 L Total Bilirubin 0.30 AST 34 ALT 27 Alkaline Phosphatase 63 Troponin I High Sens 40 Total Protein 7.4 Albumin 3.5 Globulin 3.9 Albumin/Globulin Ratio 0.9 Urine Color Yellow Urine Clarity Clear Urine pH 5.0 Ur Specific [place] 1.025 Urine Protein 30 H Urine Glucose (UA) Normal Urine Ketones 5 H Urine Occult Blood 10 H Urine Nitrite Negative Urine Bilirubin 3 H Urine Urobilinogen Normal Ur Leukocyte Esterase Negative Urine RBC 0 SEEN Urine WBC 0 SEEN Ur Squamous Epith Cells 0 SEEN Urine Bacteria 0 SEEN Urine Mucus 0 SEEN 10/30/21 13:47 WBC RBC Hgb Hct MCV MCH MCHC RDW Std Deviation RDW Coeff of [place] Plt Count MPV Immature Gran % (Auto) Neut % (Auto) Lymph % (Auto) [place] % (Auto) Eos % (Auto) Baso % (Auto) Absolute Neuts (auto) Absolute Lymphs (auto) Nucleated RBC % Platelet Estimate Sodium Potassium Chloride Carbon Dioxide Anion Gap BUN Creatinine Estim Creat Clear Calc Est GFR (MDRD) Af Amer Est GFR (MDRD) Non-Af BUN/Creatinine Ratio Glucose Lactic Acid 1.4 Calcium Total Bilirubin AST ALT Alkaline Phosphatase Troponin I High Sens Total Protein Albumin Globulin Albumin/Globulin Ratio Urine Color Urine Clarity Urine pH Ur Specific [place] Urine Protein Urine Glucose (UA) Urine Ketones Urine Occult Blood Urine Nitrite Urine Bilirubin Urine Urobilinogen Ur Leukocyte Esterase Urine RBC Urine WBC Ur Squamous Epith Cells Urine Bacteria Urine Mucus ABG Data ABG results: ABG 10/30/21 13:19 Specimen Type ART Sample Site L Brach pH 7.34 L Bicarbonate Actual 15.3 L Total CO2 16 Base Excess -11 L O2 Saturation 98 ABG pCO2 28.4 L ABG pO2 113 H O2 Delivery Device Cannula Liter Flow 3.0 Radiography Chest X-Ray - ED: 1 View, Read by ED Physician, Mediastinum, Bony Structures, No Acute Disease and Chronic Changes Diagnostic Testing: Clinical Impression(s) from Imaging Studies Chest X-Ray 10/30/21 12:02 IMPRESSION: No active disease. Electronically Signed: Junior Chambers MD at 13:06 EDT Reading Location ID and State: [id number] / [employer] Tel , Service support , Brain CT 10/30/21 13:25 IMPRESSION: Acute 1 cm parenchymal hematoma of the subcortical white matter of the posterior left parietal lobe possibly from amyloid angiopathy. Electronically Signed: Junior Chambers MD at 14:46 EDT Reading Location ID and State: [id number] / [employer] Tel , Service support , ADDENDUM: 10/30/21 1456 IMPRESSION: Acute 1 cm parenchymal hematoma of the subcortical white matter of the posterior left parietal lobe possibly from amyloid angiopathy. N.B. : The above Results were Read Back by Junior Chambers MD to Dr. Robin Guadalupe MD, , and understanding confirmed on 10/30/2021 14:49:10 (ET). Electronically Signed: Junior Chambers MD at 14:46 EDT , ADDENDUM: 10/30/21 1456 IMPRESSION: Acute 1 cm parenchymal hematoma of the subcortical white matter of the posterior left parietal lobe possibly from amyloid angiopathy. N.B. : The above Results were Read Back by Junior Chambers MD to Dr. Robin Guadlaupe MD, MD, and understanding confirmed on 10/30/2021 14:49:10 (ET). Electronically Signed: Junior Chambers MD at 14:46 EDT , Chest x-ray, single view, portable interpreted by myself shows no acute abnormality. Left Mediport in place. No acute processes. CAT scan of the brain as read by the radiologist and reviewed by me shows a left posterior parenchymal density looks like an acute intracranial bleed. There is no mass-effect. No edema. Rhythm Strip Rhythm Strip: Sinus Rhythm Rate: 93 EKG Initial EKG: Attestation: I personally reviewed and interpreted this EKG as follows: Interpretation: Sinus Rhythm and No Acute Injury Pattern Comments: Normal sinus rhythm rate of 93 no acute signs of [place] or ischemia. Nonspecific ST-T wave abnormalities laterally. Critical Care Time Critical Care Time: Yes Critical care time (excluding procedures): 30-74 minutes, Including time spent:, Discussing w/Patient &/or Family/Recycling Technician, Discussing w/Consultants, Arranging Admission or Transfer and Performing Direct Patient Care at Bedside Discharge Plan Triage Chief Complaint: Alt LOC ED Provider: Oscar Guadalupe Dx/Rx/DC Orders Clinical Impression: Acute alteration in mental status, Electrolyte abnormality, Nausea vomiting and diarrhea, Acute dehydration, Acute kidney injury, History of COPD, History of lung cancer, History of diabetes mellitus, Acute hypotension, Acute intra-cranial hemorrhage Prescriptions: No Action clopidogrel 75 mg tablet 75 mg PO DAILY RF: 0 aspirin 325 mg tablet,delayed release (DR/EC) 325 mg PO DAILY RF: 0 lidocaine-prilocaine 2.5-2.5 % cream 1 applic topical ONCE PRN (Reason: Port access ) 30 Days Qty: 30 RF: 2 albuterol sulfate 90 mcg/actuation HFA aerosol inhaler 2 puff INHALATION Q4H PRN PRN (Reason: Sob &/Or Wheezing) Qty: 8.5 RF: 2 fluoxetine 20 mg capsule 60 mg PO DAILY 90 Days Qty: 270 RF: 2 lisinopril 10 mg tablet 10 mg PO DAILY Qty: 90 RF: 1 metoprolol tartrate 50 mg tablet 50 mg PO BID 90 Days Qty: 180 RF: 2 magnesium oxide 200 mg magnesium tablet 200 mg PO BID Qty: 120 RF: 1 Lantus Solostar U-100 Insulin 100 unit/mL (3 mL) insulin pen 20 unit SC QAM Qty: 18 RF: 2 Trulicity 1.5 mg/0.5 mL pen injector 1.5 mg SUBCUT FR Qty: 6 RF: 2 ondansetron 8 mg tablet,disintegrating 8 mg PO Q8H PRN (Reason: nausea and vomiting) Qty: 30 RF: 2 nitroglycerin 0.4 MG tablet 0.4 mg SL Q5M PRN (Reason: Chest Pain) RF: 0 dicyclomine 10 MG capsule 10 - 20 mg PO TID PRN PRN (Reason: stomach) RF: 0 insulin aspart U-100 [Novolog Flexpen U-100 Insulin] 100 unit/mL (3 mL) insulin pen 12 - 14 unit SC TID RF: 0 budesonide-formoterol [Symbicort] 160-4.5 mcg/actuation HFA aerosol inhaler 2 puff INHALATION BID RF: 0 atorvastatin 40 mg tablet 40 mg PO QHS Qty: 90 RF: 3 (DME) pen needle, diabetic [BD Ultra-Fine Teri Pen Needle] 32 gauge x 5/32 needle See Rx Instructions .ROUTE .MEDSUPPLY Qty: 150 RF: 6 alprazolam 0.25 mg tablet 0.25 mg PO DAILY PRN (Reason: anxiety) Qty: 10 RF: 0 buspirone 7.5 mg tablet 7.5 mg PO TID 90 Days Qty: 270 RF: 2 pantoprazole 20 mg tablet,delayed release (DR/EC) 40 mg PO DAILY Qty: 90 RF: 1 metformin 1,000 mg tablet 1,000 mg PO BID Qty: 180 RF: 1 sodium chloride 1 gram tablet 1,000 mg PO DAILY Qty: 90 RF: 0 potassium chloride 20 mEq tablet extended release See Rx Instructions .ROUTE .COMPLEX Qty: 30 RF: 0 furosemide 40 mg tablet 40 mg PO DAILY 30 Days Qty: 30 RF: 2 Primary Care Provider: Sarah Duarte Referrals: Sarah Duarte MD [Primary Care Provider] - Disposition Disposition: Acute Care Hospital
[2021-10-30 12:37] LABS: Absolute Lymphocyte Count 0.33 X10^3/uL (0.83-4.51); Absolute Neutrophil Count 7.5 X10^3/uL (2.0-7.7); Basophil# 0.02 X10^3/uL; Basophil% 0.2 % (0-1); Hematocrit 28.3 % (37-47); Hemoglobin 9.7 g/dL (12.0-15.0); Lymphocyte # 0.33 X10^3/ul (0.83-4.51); Lymphocyte % 3.8 % (19-41); Mean Corp Hgb Conc 34.3 g/dL (32-36); Mean Corpuscular Hgb 34.3 pg (27.0-32.0); Mean Platelet Vol. 9.6 fl (6.2-12.0); Monocyte# 0.76 X10^3/uL; Monocyte% 8.7 % (0-10); NRBC Flagged by Analyzer 0 % (0-5); Neutrophil # 7.52 X10^3/uL (2.7-7.7); POSITIVE COUNT YES; POSITIVE DIFFERENTIAL YES; POSITIVE MORPHOLOGY YES; Platelet Count 81 K/mm3 (150-450); RBC Distribution Width CV 16.1 % (11.6-14.6); RBC Distribution Width SD 58.8 fl (35.1-43.9); Red Blood Count 2.83 M/mm3 (4.2-5.4); White Blood Count 8.7 K/mm3 (4.4-11.0)
[2021-10-30 12:39] LABS: Differential Indicated SCAN CRITERIA MET
[2021-10-30 12:49] LABS: ALB/GLOB Ratio 0.9 RATIO (0.9-2.4); AST(SGOT) 34 U/L (15-37); Alanine Aminotransfer ALT/SGPT 27 U/L (13-56); Albumin, Serum 3.5 g/dL (3.2-5.0); Alkaline Phosphatase 63 U/L (45-117); Anion Gap 14 (5-15); BUN 52 mg/dL (7-18); BUN/Creat Ratio 19.2 RATIO (10-20); Calcium,Total 7.8 mg/dL (8.5-10.1); Chloride 100 mmol/L (98-107); Creatinine, Serum 2.71 mg/dL (0.55-1.02); EST Glomerular Filtration Rate 19 mL/min (>60); Est Glom Filt Rate - Afr Amer 23 mL/min (>60); Estimated Creatinine Clearance 18.35 ml/min; Globulin 3.9 g/dL (2.2-4.2); Glucose 210 mg/dL (74-106); Potassium 3.1 mmol/L (3.5-5.1); Protein, Total 7.4 g/dL (6.4-8.2); Sodium Level 129 mmol/L (136-145); Troponin-I HS 40 pg/mL (3.0-54.0)
[2021-10-30 12:55] LABS: Bacteria 0 SEEN /hpf (None Seen); Mucous, Urine 0 SEEN /hpf (<or=2+); Red Blood Cells-Urine 0 SEEN /hpf (0-5); Squamous Epithelial Cells - UA 0 SEEN /hpf (5-10); White Blood Cells 0 SEEN /hpf (0-5)
[2021-10-30 12:56] LABS: Color, Urine Yellow (Yellow); Glucose, Dipstick Normal (Normal); Ketone-Dipstick 5 mg/dl (Negative); Leukocyte Esterase-Dipstick Negative /ul (Negative); Nitrite-Dipstick Negative (Negative); Occult Blood-Urine 10 /ul (Negative); Protein-Dipstick 30 mg/dl (Negative); Specific Gravity, Urine 1.025 (1.002-1.030); Urine Clarity Clear (Clear); Urine Urobilinogen Normal (Normal)
[2021-10-30 12:57] LABS: Urine Bilirubin Dipstick 3 mg/dL (Negative)
[2021-10-30 13:04] LABS: Platelet Estimate MOD DEC (ADEQ)
--- NOTE | 2021-10-30 13:25 | CT_ITS ---
We are attempting to reach an attending provider to discuss findings. An addendum with communication details will be sent when the communication is complete. STUDY: CT BRAIN WITHOUT CONTRAST REASON FOR EXAM: Female, 61 years old. ms change RADIATION DOSAGE (If Supplied By Facility): CTDIvol = ( 44.99 ) mGy, DLP = ( 796.11 ) mGycm TECHNIQUE: Transaxial CT imaging of the brain was performed without administration of intravenous contrast material. Individualized dose optimization techniques were used for this CT. COMPARISON: 03/12/2021 FINDINGS: Normal soft tissue structures. Normal calvarium. Normal size ventricles and extra-axial spaces for the patient''s age. Normal white matter tracts of the cerebral hemispheres. Normal basal ganglia and thalami. Normal brainstem. Normal cerebellum. 1 cm round area of increased attenuation within the subcortical white matter of the posterior left parietal lobe consistent with an acute parenchymal hematoma possibly related to amyloid angiopathy. No change in 1.6 and meter peripherally calcified aneurysm in the right cavernous sinus. There are no findings of an acute ischemic infarction. Normal visualized paranasal sinuses. CT/Brain/Head without Contrast IMPRESSION: Acute 1 cm parenchymal hematoma of the subcortical white matter of the posterior left parietal lobe possibly from amyloid angiopathy. Electronically Signed: Junior Chambers MD at 14:46 EDT ,
[2021-10-30 13:26] LABS: Base Excess -11 mmol/L (-2 to +2); Bicarbonate 15.3 mmol/L (22-26); Blood Gas Specimen Type ART; O2 Delivery Device Cannula; PO2 113 mmHG (75-100); SITE L Brach; SO2 98 % (95-99); Total Carbon Dioxide 16 mmol/L; pCO2 28.4 mmHg (35-45); pH 7.34 (7.35-7.45)
[2021-10-30] MEDS: 0.9% Normal Saline 1,000 ML 999 ML IV (13:37)
[2021-10-30 14:21] LABS: Lactic Acid 1.4 mmol/L (0.4-1.9)
--- NOTE | 2021-10-30 15:29 | ED.RN ---
physicians ambulance notified pt is needing flown or emergent transport to [facility]. eta 3-4 hrs.
--- NOTE | 2021-10-30 15:47 | NURSING ---
[facility] NOT FLYING; PHYSICIANS GAVE A 3-4 HOUR ETA FOR PRIORITY 1. CALLED, PHUONG BAUTISTA. BOTH DECLINED.
== END 2021-10-30 17:36 | disposition short-term general hospital (02) ==
PROVIDERS: Emergency Provider Emergency Medicine; PCP Internal Medicine; Visit Provider Emergency Medicine
DX: R41.82 Altered mental status, unspecified (principal); N17.9 Acute kidney failure, unspecified; J44.9 Chronic obstructive pulmonary disease, unspecified; I11.0 Hypertensive heart disease with heart failure; I50.9 Heart failure, unspecified; E11.9 Type 2 diabetes mellitus without complications; E86.0 Dehydration; R19.7 Diarrhea, unspecified; I25.10 Atherosclerotic heart disease of native coronary artery without angina pectoris; R11.2 Nausea with vomiting, unspecified; I95.9 Hypotension, unspecified; Z87.891 Personal history of nicotine dependence; Z95.5 Presence of coronary angioplasty implant and graft; Z92.21 Personal history of antineoplastic chemotherapy
CPT/HCPCS: 51701; 36591; 36600; 51702; 70450; 71045; 80053; 81001; 82803; 83605; 84484; 85025; 87040; 87426; 87804; 93005; 96360; 99285; J7030; P9612; A4216

== ENCOUNTER 2021-11-22 13:08 | Inpatient (IN) | payer MEDICAID, SELFPAY ==
[2021-11-22] VITALS (8 sets, daily range): BP systolic 97–114; BP diastolic 53–85; PULSE 76–80; RESP 16–20; TEMP 36.1–36.9; O2SAT 96–100; BMI 25.7; BMI 25.4
--- NOTE | 2021-11-22 14:59 | EKG12_ITS ---
Test Reason : Blood Pressure : / mmHG Vent. Rate : 071 BPM Atrial Rate : 071 BPM P-R Int : 170 ms QRS Dur : 102 ms QT Int : 442 ms P-R-T Axes : 044 -51 035 degrees QTc Int : 480 ms Normal sinus rhythm Left axis deviation Septal infarct , age undetermined, cannot be excluded Abnormal ECG Confirmed by MYLES KAN, BROCK ([id number]), mapping editor JOSE GUADALUPE ALLEN ([id number]) on 11/23/2021 1:41:26 PM Referred By: PIYUSH Confirmed By:BROCK BUENO MD
--- NOTE | 2021-11-22 15:03 | EX.ED.DYSGE1 ---
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 She underwent chemotherapy. She then had spread to the opposite side of origin. She was transferred to [facility] because of intracranial bleed that was determined to be due to metastasis. She is presently not on Decadron. She is not oriented and unable to contribute to history. Daughter who is with her is from [place]. They are uncertain if she is taken her medicine the last 1 to 2 to 3 days. Patient states she cannot remember. Daughter states that she was told to bring her to the emergency room for a stat MRI. Prior similar symptoms: No Recent Illness/Hospitalization: Yes [facility] Medical History Anxiety Atherosclerosis of [place] coronary artery of [place] heart without angina pectoris Brain aneurysm Cancer Carcinoma, lung Cardiac dysrhythmia Cardiology follow-up encounter Congestive heart failure COPD (chronic obstructive pulmonary disease) Coronary artery disease Cough Depression Diarrhea Diarrhea due to drug DVT (deep venous thrombosis) Edema Electrolyte abnormality Encounter for chemotherapy management Encounter for immunotherapy Former smoker Gastric reflux GERD (gastroesophageal reflux disease) Hiatal hernia History of blood transfusion History of echocardiogram History of fatty infiltration of liver History of stress test Hyperlipidemia Hypertension Hypokalemia Hypomagnesemia Injury of head and neck Loose, teeth Low iron Lower extremity edema Myocardial infarct On home oxygen therapy Oxygen dependent Presence of stent in coronary artery (~05/2011) Restless legs Shortness of breath on exertion Sinus drainage Syncope Tremor Type II diabetes mellitus Uses wheelchair Vertigo Wears partial dentures Home Medications nitroglycerin 0.4 mg SL Q5M PRN 07/03/13 [History Last Taken 06/19/12 0.4] lidocaine-prilocaine 2.5 %-2.5 % topical cream 1 applic TOPICAL ONCE PRN 30 Days #30 g 10/19/20 [Rx Last Taken Unknown] atorvastatin 40 mg tablet 40 mg PO QHS #90 tablet 02/10/21 [Rx Last Taken Unknown] budesonide-formoterol [Symbicort] 2 puff INHALATION BID 05/24/21 [History Last Taken Unknown] insulin aspart U-100 [Novolog Flexpen U-100 Insulin] 12 - 14 unit SC TID 05/24/21 [History Last Taken Unknown] ondansetron 8 mg disintegrating tablet 8 mg PO Q8H PRN #30 tab 06/08/21 [Rx Last Taken Unknown] fluoxetine 20 mg capsule 60 mg PO DAILY 90 Days #270 cap 06/21/21 [Rx Last Taken 11/22/21] lisinopril 10 mg tablet 10 mg PO DAILY #90 tab 06/21/21 [Rx Last Taken Unknown] pen needle, diabetic 32 gauge x 32 #150 ea 06/24/21 [Rx Last Taken Unknown] alprazolam 0.25 mg tablet 0.25 mg PO DAILY PRN #10 tab 07/30/21 [Rx Last Taken Unknown] Trulicity 1.5 mg/0.5 mL subcutaneous pen injector 1.5 mg SUBCUT FR #6 ml NS 08/17/21 [Rx Last Taken Unknown] pantoprazole 20 mg tablet,delayed release 40 mg PO DAILY #90 tab 09/02/21 [Rx Last Taken 11/22/21] metformin 1,000 mg tablet 1,000 mg PO BID #180 tab 09/03/21 [Rx Last Taken 11/22/21] buspirone 7.5 mg PO TID 11/22/21 [History Last Taken 11/22/21] furosemide 40 mg PO DAILY 11/22/21 [History Last Taken Unknown] insulin glargine [Lantus Solostar U-100 Insulin] 20 unit SC QAM 11/22/21 [History Last Taken Unknown] magnesium oxide 200 mg PO BID 11/22/21 [History Last Taken Unknown] metoprolol tartrate 50 mg PO BID 11/22/21 [History Last Taken Unknown] potassium chloride 40 meq PO DAILY 11/22/21 [History Last Taken Unknown] sodium chloride 1,000 mg PO DAILY 11/22/21 [History Last Taken 11/22/21] Allergy/AdvReac Type Severity Reaction Status Date / Time No Known Allergies Allergy Verified 11/22/21 13:09 Family History Father , Age 56 Myocardial infarction Heart disease COPD (chronic obstructive pulmonary disease) Mother COPD (chronic obstructive pulmonary disease) Heart disease Surgical History H/O arthroscopic knee surgery H/O elbow surgery History of cardiac catheterization History of carpal tunnel surgery History of cholecystectomy History of coronary artery stent placement History of lumbar surgery History of tubal ligation Hx of biopsy Presence of coronary angioplasty implant and graft Social History household members: spouse housing: house current occupational status: retired Smoking Status: Former smoker quit date: 06/19/13 pack-years: 35 Tobacco: How many years used: 37 how long ago did patient quit smokin years ago second hand exposure: No alcohol intake: never substance use type: does not use caffeine: Yes Type: carbonated beverages Number of servings: 2 and coffee Number of servings: 2 eating out: 1-3 times/week during the past year weight has: increased > 10 lbs lizette/faith: Religious seatbelt use: always do you feel safe at home: Yes ROS ROS ED Review of Systems ROS Unobtainable: due to mental status Respiratory/Chest Respiratory/Chest: Reports dyspnea EXAM Physical Exam Const Vital Signs: 11/22/21 13:09 11/22/21 15:27 11/22/21 15:33 Temperature 97 F L Temperature Source Temporal Pulse Rate 79 Respiratory Rate 18 Respiratory Effort Normal Respiratory Pattern Normal Blood Pressure 114/59 L Blood Pressure Mean 77 Pulse Ox 97 Oxygen Delivery Method Nasal Cannula Oxygen Flow Rate (L/min) 3 2 Positive well nourished and well developed General Appearance ED: well developed, NAD, pallor and other Patient looks pale and may be slightly jaundiced. ; Negative for cyanotic or diaphoretic HEENT Reports dry mucous membranes HEENT Narrative: Ears are normal. Nares patent. Uvula midline. Negative for trauma Mouth ED: Yes dry mucous membranes Mouth: dry mucous membranes Eyes PERRL and EOMs intact bilaterally General Eye ED: Yes pale conjunctiva and scleral icterus Neck no lymphadenopathy, supple and no JVD Neck Narrative: Trachea is midline. There is no inspiratory expiratory stridor. Chest Wall inspection of chest normal and palpation of chest normal Resp normal respiratory effort and clear to auscultation bilaterally Auscultation: diminished lung sounds bilateral Cardio regular rate, regular rhythm, S1 normal heart sound, S2 normal heart sound and no murmurs GI normal to inspection, nondistended, normoactive bowel sounds and non-tender Palpation: soft Back/Spine no CVA tenderness Thoracic Spine / Upper Back: thoracic spinal tenderness and paraspinal muscle tenderness Extremity normal to inspection General Extremety ED: Negative for edema or tenderness General Extremity: Negative for edema Neuro No oriented x3, CN's II-XII intact bilaterally and no sensory deficits noted Neuro Narrative: Patient withdraws on Babinski testing. There is no clonus. Sensorium / Orientation: orientation impaired; Negative for alert, lethargic or stuporous Motor Exam: strength 5/5 throughout and general weakness Psych Psych Narrative: Affect is flat mood is depressed Skin no rashes or lesions noted, no wounds and No skin turgor normal General Skin Exam: jaundice and pallor; Negative for elasticity normal MDM MDM MDM Narrative Medical decision making narrative: Patient recently diagnosed with metastasis to brain. Primary is small cell. Will obtain CBC, competence metabolic panel and UA to assess for metabolic and infectious causes. Concern patient is anemic and may have metastasis to liver since she has scleral icterus and may have slight jaundice to her skin. Call was placed to Jessica harris PU[employer] OPERATOR for Dr. Whatley since she was sent in for emergent MRI. Patient was treated for hospital-acquired pneumonia since she was recently admitted at [facility]. Urine culture was obtained as well as blood cultures prior to administration of antibiotics. She was treated with Zosyn and vancomycin which will cover both respiratory and urologic pathogens. Spoke with Syl harris nurse practitioner for Dr. Whatley. Patient is a full go. Also spoke with Robson Wallace the radiation oncologist. Both of them are in agreement patient does not need an emergent MRI. Lab Data Labs: Laboratory Results - last 24 hr 11/22/21 11/22/21 11/22/21 15:30 15:30 15:49 WBC 5.7 RBC 2.32 L Hgb 7.8 L Hct 23.5 L MCV 101.3 H MCH 33.6 H MCHC 33.2 RDW Std Deviation 63.7 H RDW Coeff of [place] 17.1 H Plt Count 237 MPV 9.5 Immature Gran % (Auto) 1.200 H Neut % (Auto) 60.9 Lymph % (Auto) 22.3 [place] % (Auto) 14.9 H Eos % (Auto) 0.5 Baso % (Auto) 0.2 Absolute Neuts (auto) 3.4 Absolute Lymphs (auto) 1.26 Nucleated RBC % 0 Sodium 140 Potassium 2.9 L Chloride 101 Carbon Dioxide 32.0 Anion Gap 7 BUN 18 Creatinine 0.84 Estim Creat Clear Calc 59.20 Est GFR (MDRD) Af Amer 89 Est GFR (MDRD) Non-Af 73 BUN/Creatinine Ratio 21.6 H Glucose 101 Calcium 8.6 Total Bilirubin 0.20 AST 19 ALT 14 Alkaline Phosphatase 54 Total Protein 7.1 Albumin 2.8 L Globulin 4.3 H Albumin/Globulin Ratio 0.7 L Urine Color Straw Urine Clarity Clear Urine pH 6.0 Ur Specific [place] 1.010 Urine Protein Negative Urine Glucose (UA) Normal Urine Ketones Negative Urine Occult Blood Negative Urine Nitrite Negative Urine Bilirubin Negative Urine Urobilinogen Normal Ur Leukocyte Esterase 100 H Urine RBC 0-5 SEEN Urine WBC 5-10 SEEN Ur Squamous Epith Cells 0 SEEN Urine Bacteria 2+ Urine Mucus 0 SEEN Radiography Chest X-Ray - ED: 2 View and Read by ED Physician (2 view chest x-ray was independently reviewed and interpreted by me as positive for right middle lobe infiltrate. The infiltrate is new since November 07. There is no abnormality osseous structures. There is no evidence of effusion. The cardiac size is unremarkable.) Diagnostic Testing: Clinical Impression(s) from Imaging Studies Chest X-Ray 11/22/21 16:10 IMPRESSION: There is a right pleural effusion. Right perihilar pneumonia. Electronically Signed: Adam Sheridan MD at 16:40 EDT , EKG Initial EKG: Attestation: I personally reviewed and interpreted this EKG as follows: Interpretation: Sinus Rhythm (Ventricular rate 71. MO interval 270 ms. QS duration 102 ms. QT duration 442 ms. [place] to left. There is decreased anterior force noted.) Discharge Plan Dx/Rx/DC Orders Clinical Impression: Infectious encephalopathy, Right middle lobe pneumonia, Urinary tract infection, 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, Acute hypokalemia Disposition Disposition: Acute Care Hospital [facility] Discharge Date/Time: 11/22/21 18:19
[2021-11-22 15:41] LABS: Absolute Lymphocyte Count 1.26 X10^3/uL (0.83-4.51); Absolute Neutrophil Count 3.4 X10^3/uL (2.0-7.7); Basophil# 0.01 X10^3/uL; Basophil% 0.2 % (0-1); Eosinophil# 0.03 X10^3/uL; Eosinophils% 0.5 % (0-5); Hematocrit 23.5 % (37-47); Hemoglobin 7.8 g/dL (12.0-15.0); Lymphocyte # 1.26 X10^3/ul (0.83-4.51); Lymphocyte % 22.3 % (19-41); Mean Corp Hgb Conc 33.2 g/dL (32-36); Mean Corpuscular Hgb 33.6 pg (27.0-32.0); Mean Corpuscular Volume 101.3 fL (81-99); Mean Platelet Vol. 9.5 fl (6.2-12.0); Monocyte# 0.84 X10^3/uL; Monocyte% 14.9 % (0-10); NRBC Flagged by Analyzer 0 % (0-5); Neutrophil # 3.44 X10^3/uL (2.7-7.7); Neutrophil % 60.9 % (47-70); Platelet Count 237 K/mm3 (150-450); RBC Distribution Width CV 17.1 % (11.6-14.6); RBC Distribution Width SD 63.7 fl (35.1-43.9); Red Blood Count 2.32 M/mm3 (4.2-5.4); White Blood Count 5.7 K/mm3 (4.4-11.0)
[2021-11-22 15:54] LABS: Mucous, Urine 0 SEEN /hpf (<or=2+); Squamous Epithelial Cells - UA 0 SEEN /hpf (5-10)
[2021-11-22 16:00] LABS: ALB/GLOB Ratio 0.7 RATIO (0.9-2.4); AST(SGOT) 19 U/L (15-37); Alanine Aminotransfer ALT/SGPT 14 U/L (13-56); Albumin, Serum 2.8 g/dL (3.2-5.0); Alkaline Phosphatase 54 U/L (45-117); Anion Gap 7 (5-15); BUN 18 mg/dL (7-18); BUN/Creat Ratio 21.6 RATIO (10-20); Calcium,Total 8.6 mg/dL (8.5-10.1); Chloride 101 mmol/L (98-107); Creatinine, Serum 0.84 mg/dL (0.55-1.02); EST Glomerular Filtration Rate 73 mL/min (>60); Est Glom Filt Rate - Afr Amer 89 mL/min (>60); Globulin 4.3 g/dL (2.2-4.2); Glucose 101 mg/dL (74-106); Potassium 2.9 mmol/L (3.5-5.1); Protein, Total 7.1 g/dL (6.4-8.2); Sodium Level 140 mmol/L (136-145)
--- NOTE | 2021-11-22 16:10 | RAD_ITS ---
STUDY: X-RAY CHEST REASON FOR EXAM: Female, 61 years old. SOB / SOA Tachypnea to TECHNIQUE: XR Chest 2 Views COMPARISON: 10.30.21 FINDINGS: There is a right pleural effusion. There is no pneumothorax. There is a left Port-A-Cath and/or mediport in place. The tip is in the superior vena cava. Right perihilar pneumonia. Normal size heart. Normal mediastinum and melinda. Normal visualized pulmonary arteries. There is atherosclerotic calcification of the aortic arch with tortuosity. There are diffuse degenerative changes of the visualized thoracic spine. There is degenerative osteoarthritis of the bilateral shoulders. There is no demonstrated abnormality of the visualized soft tissue structures of the upper abdomen. RAD/Chest PA and Lateral IMPRESSION: There is a right pleural effusion. Right perihilar pneumonia. Electronically Signed: Adam Sheridan MD at 16:40 EDT ,
[2021-11-22 16:17] LABS: Color, Urine Straw (Yellow); Glucose, Dipstick Normal (Normal); Ketone-Dipstick Negative (Negative); Leukocyte Esterase-Dipstick 100 /ul (Negative); Nitrite-Dipstick Negative (Negative); Occult Blood-Urine Negative /ul (Negative); Protein-Dipstick Negative (Negative); Urine Bilirubin Dipstick Negative (Negative); Urine Clarity Clear (Clear); Urine Urobilinogen Normal (Normal)
[2021-11-22 16:36] LABS: Bacteria 2+ /hpf (None Seen); White Blood Cells 5-10 SEEN /hpf (0-5)
[2021-11-22 16:37] LABS: Red Blood Cells-Urine 0-5 SEEN /hpf (0-5)
--- NOTE | 2021-11-22 17:02 | HP.PCM.HOS_ITS ---
HPI - General General Date of Admission: 11/22/21 HPI Narrative CAPRI CORONEL, is a 61 F with an extensive PMH as outlined who presents via the ED on 11/22/2021 with a complaint of confusion. She has a history fo small cell carcinoma with concern for brain mets. She was recently transferred to [facility] o/a of intracranial bleed due to mets. She was to have a repeat brain scan on December 03. Sh was brought in to the ED due to concerns of confusion. Family was with her and they werent sure if she had taken her meds for hte last few days. She denied any feve,r chills, nausea, vomiting or diarrhea. Review of systems is otherwise negative. Vitals in the ED were BP of 114/59, [place] of 79, RR of 18 and temp of 97F. She was saturating at 97% on 3L of oxygen. CBC showed Hb of 7.8 with wbc of 5.7 and platelets of 237. Chemistry showed sodium of 140 with potassium of 2.9 and bicarb of 32. Cr was 0.84. Urinalysis showed bacteria of 2+.Chemistry showed a right pleural effusion and right perihilar pneumonia. She is being admitted to be managed for acute metabolic encephalopathy due to UTI and right perihilar pneumonia. [facility] Medical History Anxiety Atherosclerosis of [place] coronary artery of [place] heart without angina pectoris Brain aneurysm Cancer Carcinoma, lung Cardiac dysrhythmia Cardiology follow-up encounter Congestive heart failure COPD (chronic obstructive pulmonary disease) Coronary artery disease Cough Depression Diarrhea Diarrhea due to drug DVT (deep venous thrombosis) Edema Electrolyte abnormality Encounter for chemotherapy management Encounter for immunotherapy Former smoker Gastric reflux GERD (gastroesophageal reflux disease) Hiatal hernia History of blood transfusion History of echocardiogram History of fatty infiltration of liver History of stress test Hyperlipidemia Hypertension Hypokalemia Hypomagnesemia Injury of head and neck Loose, teeth Low iron Lower extremity edema Myocardial infarct On home oxygen therapy Oxygen dependent Presence of stent in coronary artery (~05/2011) Restless legs Shortness of breath on exertion Sinus drainage Syncope Tremor Type II diabetes mellitus Uses wheelchair Vertigo Wears partial dentures Home Medications nitroglycerin 0.4 mg SL Q5M PRN 07/03/13 [History Last Taken 06/19/12 0.4] lidocaine-prilocaine 2.5 %-2.5 % topical cream 1 applic TOPICAL ONCE PRN 30 Days #30 g 10/19/20 [Rx Last Taken Unknown] atorvastatin 40 mg tablet 40 mg PO QHS #90 tablet 02/10/21 [Rx Last Taken Unknown] budesonide-formoterol [Symbicort] 2 puff INHALATION BID 05/24/21 [History Last T aken Unknown] insulin aspart U-100 [Novolog Flexpen U-100 Insulin] 12 - 14 unit SC TID 05/24/21 [History Last Taken Unknown] ondansetron 8 mg disintegrating tablet 8 mg PO Q8H PRN #30 tab 06/08/21 [Rx Last Taken Unknown] fluoxetine 20 mg capsule 60 mg PO DAILY 90 Days #270 cap 06/21/21 [Rx Last Taken 11/22/21] lisinopril 10 mg tablet 10 mg PO DAILY #90 tab 06/21/21 [Rx Last Taken Unknown] pen needle, diabetic 32 gauge x 32 #150 ea 06/24/21 [Rx Last Taken Unknown] alprazolam 0.25 mg tablet 0.25 mg PO DAILY PRN #10 tab 07/30/21 [Rx Last Taken Unknown] Trulicity 1.5 mg/0.5 mL subcutaneous pen injector 1.5 mg SUBCUT FR #6 ml NS 08/17/21 [Rx Last Taken Unknown] pantoprazole 20 mg tablet,delayed release 40 mg PO DAILY #90 tab 09/02/21 [Rx Last Taken 11/22/21] metformin 1,000 mg tablet 1,000 mg PO BID #180 tab 09/03/21 [Rx Last Taken 11/22/21] buspirone 7.5 mg PO TID 11/22/21 [History Last Taken 11/22/21] furosemide 40 mg PO DAILY 11/22/21 [History Last Taken Unknown] insulin glargine [Lantus Solostar U-100 Insulin] 20 unit SC QAM 11/22/21 [History Last Taken Unknown] magnesium oxide 200 mg PO BID 11/22/21 [History Last Taken Unknown] metoprolol tartrate 50 mg PO BID 11/22/21 [History Last Taken Unknown] potassium chloride 40 meq PO DAILY 11/22/21 [History Last Taken Unknown] sodium chloride 1,000 mg PO DAILY 11/22/21 [History Last Taken 11/22/21] Allergy/AdvReac Type Severity Reaction Status Date / Time No Known Allergies Allergy Verified 11/22/21 13:09 Family History Father , Age 56 Myocardial infarction Heart disease COPD (chronic obstructive pulmonary disease) Mother COPD (chronic obstructive pulmonary disease) Heart disease Surgical History H/O arthroscopic knee surgery H/O elbow surgery History of cardiac catheterization History of carpal tunnel surgery History of cholecystectomy History of coronary artery stent placement History of lumbar surgery History of tubal ligation Hx of biopsy Presence of coronary angioplasty implant and graft Social History household members: spouse housing: house current occupational status: retired Smoking Status: Former smoker quit date: 06/19/13 pack-years: 35 Tobacco: How many years used: 37 how long ago did patient quit smokin years ago second hand exposure: No alcohol intake: never substance use type: does not use caffeine: Yes Type: carbonated beverages Number of servings: 2 and coffee Nu mber of servings: 2 eating out: 1-3 times/week during the past year weight has: increased > 10 lbs lizette/worship: [employer] seatbelt use: always do you feel safe at home: Yes ROS Constitutional Constitutional: Reports fatigue, malaise and weakness; Denies change in weight, chills or fever(s) Eyes Eyes: Denies change in vision ENT HEENT: Denies dysphagia, nasal congestion, nasal discharge or sore throat Cardiovascular Cardiovascular: Denies chest pain, edema, lightheadedness, orthopnea, palpitations, paroxysmal nocturnal dyspnea or rapid heart rate Respiratory/Chest Respiratory/Chest: Denies cough, dyspnea, productive cough, shortness of breath at rest or shortness of breath with exertion Gastrointestinal Gastrointestinal: Denies abdominal pain, constipation, nausea or vomiting Genitourinary Genitourinary: Denies burning urination or dysuria Musculoskeletal Musculoskeletal: Reports arthralgias; Denies joint pain or joint swelling Neurologic Neurologic: Reports confusion; Denies dizziness, focal weakness, headache(s), seizures or syncope Psychiatric Psychiatric: Denies anxiety Endocrine Endocrinology: Reports change in body appearance Hematologic/Lymphatic Hematologic/Lymphatic: Denies anemia Vital Signs Vital Signs Vital Signs: 11/22/21 13:09 11/22/21 15:27 11/22/21 15:33 Temperature 97 F L Temperature Source Temporal Pulse Rate 79 Respiratory Rate 18 Respiratory Effort Normal Respiratory Pattern Normal Blood Pressure 114/59 L Blood Pressure Mean 77 Pulse Ox 97 Oxygen Delivery Method Nasal Cannula Oxygen Flow Rate (L/min) 3 2 Weight Weight: 150 lb Body Mass Index (BMI) 25.7 Physical Exam Const alert and no apparent distress Orientation / Consciousness: lethargic HEENT normocephalic, head/scalp atraumatic, hearing grossly normal bilaterally and mo ist oral mucous membranes Eyes PERRL, EOMs intact bilaterally and conjunctivae normal Neck no lymphadenopathy, supple and no JVD Resp Resp Narrative: diminished breath sounds bibasally, no wheezes or crackles. On room air. Cardio regular rate, regular rhythm, S1 normal heart sound, S2 normal heart sound and no murmurs GI normal to inspection, nondistended, normoactive bowel sounds, soft to palpation, non-tender and non-distended Extremity normal to inspection, full ROM and no clubbing, cyanosis or edema Peripheral Pulses: Yes pulses 2+ throughout Skin no rashes or lesions noted Neuro CN's II-XII intact bilaterally and moves all extremities Neuro Narrative: confused Sensorium / Orientation: awake and alert Psych Psych Narrative: confused Results Lab / Micro Data Result Diagrams: 11/22/21 15:30 11/22/21 15:30 Labs: Laboratory Results - last 24 hr 11/22/21 15:30: WBC 5.7, RBC 2.32 L, Hgb 7.8 L, Hct 23.5 L, MCV 101.3 H, MCH 33.6 H, MCHC 33.2, RDW Std Deviation 63.7 H, RDW Coeff of [place] 17.1 H, Plt Count 237, MPV 9.5, Immature Gran % (Auto) 1.200 H, Neut % (Auto) 60.9, Lymph % (Auto) 22.3, [place] % (Auto) 14.9 H, Eos % (Auto) 0.5, Baso % (Auto) 0.2, Absolute Neuts (auto) 3.4, Absolute Lymphs (auto) 1.26, Nucleated RBC % 0 11/22/21 15:30: Sodium 140, Potassium 2.9 L, Chloride 101, Carbon Dioxide 32.0, Anion Gap 7, BUN 18, Creatinine 0.84, Estim Creat Clear Calc 59.20, Est GFR (MDRD) Af Amer 89, Est GFR (MDRD) Non-Af 73, BUN/Creatinine Ratio 21.6 H, Glucose 101, Calcium 8.6, Total Bilirubin 0.20, AST 19, ALT 14, Alkaline Phosphatase 54, Total Protein 7.1, Albumin 2.8 L, Globulin 4.3 H, Albumin/Globulin Ratio 0.7 L 11/22/21 15:49: Urine Color Straw, Urine Clarity Clear, Urine pH 6.0, Ur Specific [place] 1.010, Urine Protein Negative, Urine Glucose (UA) Normal, Urine Ketones Negative, Urine Occult Blood Negative, Urine Nitrite Negative, Urine Bilirubin Negative, Urine Urobilinogen Normal, Ur Leukocyte Esterase 100 H, Urine RBC 0-5 SEEN, Urine WBC 5-10 SEEN, Ur Squamous Epith Cells 0 SEEN, Urine Bacteria 2+, Urine Mucus 0 SEEN Radiology Impression Chest X-Ray 11/22/21 16:10 IMPRESSION: There is a right pleural effusion. Right perihilar pneumonia. Electronically Signed: Adam Sheridan MD at 16:40 EDT Reading Location ID and State: [facility] / [place] , Service support , Assessment & Plan Assessment/Plan (1) Infectious encephalopathy: (2) Right middle lobe pneumonia: (3) Urinary tract infection: PLAN: #Acute metabolic encephalopathy due to UTI and pneumonia * admit to med surg * hydrate gently with IVF NS @ 125cc/hr * on IV vancomycin and zosyn. Will continue * blood cultures, urine cultures and sputum cultures obtained * urine for strep and legionella * #UTI: as above #Health associated pneumonia: as above #Small cell lung cancer with mets to hte brain * undergoing chemotherapy * CXR showed right pleural effusion and right perihilar pneumonia as above * follow up with oncology on outpatient basis * #History of intracranial bleed due to brain mets * due for a repeat MRI of the brain on December 02 * no brain imaging done this admission; will order MRI of the brain with contrast. * will monitor * #Hypokalemia: K is 2.9. Will replace and trend #Hyperlipidemia: on statin Type 2 diabetes mellitus * on lantus, Trulicity and metformin * ISS. Accuchecks ACHS * Hypertension; on lisinopril and metoprolol DVT prophylaxis: SCDs; no anticoagulation due to brain bleed Code status: full code * Patient counseled extensively about different types of CODE STATUS including full code, DNR CCA and DNR CCA. Patient elects to be full code. Daughter Harriet and son Austin are the POAs. * Total [id number] time 18 minutes. Charges/Coding Visit Charges Inpatient E&M: 84345 Init Hosp L3 Procedures Hospitalists Procedures: 11866 Advncd Care Plan 30 Min
--- NOTE | 2021-11-22 17:06 | NURSING ---
DR DESIREE OSMAN
--- NOTE | 2021-11-22 17:22 | NURSING ---
MED SURG KORAM INFECTIOUS ENCEPHALAPATHY, RML PNEUMONIA, SMALL CELL CA
[2021-11-22] MEDS: Potassium Chloride Oral Soln 20 MEQ/15 ML UDC 40 MEQ PO (18:12)
[2021-11-22 18:36] LABS: Lactic Acid 0.9 mmol/L (0.4-1.9)
--- NOTE | 2021-11-22 19:13 | PCM.RX.CS ---
Consult Pharmacy has been consulted to manage selected antiobiotic: Vancomycin Type of Consult: New start Prior Doses of Antibiotics Received/Current Regimen: Medications Discontinued Medications Vancomycin HCl 1,750 mg/ (Sodium Chloride) 535 mls @ 250 mls/hr IV X1 ONE Stop: 11/22/21 19:03 Last Admin: 11/22/21 18:38 Dose: 250 mls/hr Documented by: Labs: Sodium 140 mmol/L (136-145) 11/22/21 15:30 Potassium 2.9 mmol/L (3.5-5.1) L 11/22/21 15:30 Chloride 101 mmol/L (98-107) 11/22/21 15:30 Carbon Dioxide 32.0 mmol/L (21.0-32.0) 11/22/21 15:30 Anion Gap 7 (5-15) 11/22/21 15:30 BUN 18 mg/dL (7-18) 11/22/21 15:30 Creatinine 0.84 mg/dL (0.55-1.02) 11/22/21 15:30 Est GFR (MDRD) Af Amer 89 mL/min (>60) 11/22/21 15:30 Est GFR (MDRD) Non-Af 73 mL/min (>60) 11/22/21 15:30 BUN/Creatinine Ratio 21.6 RATIO (10-20) H 11/22/21 15:30 Glucose 101 mg/dL (74-106) 11/22/21 15:30 Weight used for dosin kg Estimated Creatinine Clearance: 59 Goal Trough: 15-20 mcg/mL Pharmacy Plan for Drug Dosinmg given initially, 750mg IV q12h with trough prior to 4th dose per policy. Pharmacy Service will continue to monitor and adjust dosing as required. Follow-Up Labs: Trough Vancomycin - 11/24 @ 0630
[2021-11-22] MEDS: Budesonide Respules 0.5 MG/2 ML AMPUL.NEB. INHALATION (19:39)
[2021-11-22] MEDS: Albuterol 2.5 MG/3 ML VIAL.NEB. INHALATION (19:39)
[2021-11-22] MEDS: 0.9% Normal Saline 1,000 ML 125 ML IV (20:18)
[2021-11-22] MEDS: busPIRone 15 MG TABLET 7.5 MG PO (22:46)
[2021-11-22] MEDS: Atorvastatin Calcium 40 MG Tablet PO (22:48)
[2021-11-23] VITALS (20 sets, daily range): BP systolic 100–138; BP diastolic 58–94; PULSE 76–95; RESP 16–28; TEMP 36.2–36.9; O2SAT 93–98
[2021-11-23 01:51] LABS: Bedside Glucose 107 mg/dL (74-106)
--- NOTE | 2021-11-23 05:13 | PCM.PN.BLA ---
Progress Note Of note patient has pneumonia. However Per nurse patient was coughing and having wheezes as well as crackles. Per nurse wheezes is at bilateral bases. Nurse reported patient sounded wet. IV fluids held by nurse. Will discontinue IV fluids.
--- NOTE | 2021-11-23 05:55 | MRI_ITS ---
STUDY: MRI BRAIN WITH AND WITHOUT CONTRAST REASON FOR EXAM: Female, 61 years old. lung cancer suspected brain mets TECHNIQUE: Standardized multiplanar fat and water weighted pulse sequences were obtained. IV 12ml Dotarem was administered for the contrast portion of the examination. COMPARISON: Head CT dated OCTOBER 30, 2021 FINDINGS: Numerous/extensive small to moderate size rounded metastatic lesions are scattered throughout the bilateral cerebral hemispheres, thalamic lobes, the right side of the midbrain, and throughout both the left and right cerebellar lobes. Metastatic foci are also present in the cinthya. A mildly hemorrhagic metastatic tumor is present in the posterior superior aspect of the left parietal lobe measuring 2.0 x 1.17 cm. The metastatic lesions of the brain parenchyma extends to the apex of the skull. These lesions diffusely enhance on the postcontrast portion of the study. Vasogenic edema is present around the metastatic lesions. There is mild cerebral atrophy with widening of the extra-axial spaces and ventricular dilatation. There are a limited number of small white matter hyperintensities, distributed throughout the deep white matter tracts of the cerebral hemispheres, consistent with mild chronic white matter ischemic changes. There is no evidence for recent intracranial ischemia or other cause of cytotoxic edema on diffusion weighted imaging (DWI). Normal bilateral basal ganglia. Normal thalami. There is no extra-axial fluid accumulation. Normal flow voids within the major intracranial circulation suggesting patency by spin echo criteria. Normal venous enhancement. Normal sella turcica, pituitary gland, infundibular stalk, optic chiasm and hypothalamus. Normal tectal plate and pineal gland. Normal basal cisterns. Normal bilateral temporal bones. Normal bilateral internal auditory canals. No demonstrated orbital abnormality, within the constraints of a routine brain study. Normal visualized paranasal sinuses. Normal calvarium and skull base. Normal visualized soft tissue structures. Normal visualized upper cervical spine. MRI/Brain W/WO Contrast IMPRESSION: Extensive metastatic disease throughout the bilateral cerebral hemispheres as well as the cerebellar lobes 1. Numerous/extensive small to moderate size rounded metastatic lesions are scattered throughout the bilateral cerebral hemispheres, thalamic lobes, the right side of the midbrain, and throughout both the left and right cerebellar lobes. 2. A mildly hemorrhagic metastatic tumor is present in the posterior superior aspect of the left parietal lobe measuring 2.0 x 1.17 cm. 3. The metastatic lesions of the brain parenchyma extends to the apex of the skull. These lesions diffusely enhance on the postcontrast portion of the study. Electronically Signed: Dangelo De La Torre MD at 11:55 EDT ,
[2021-11-23] MEDS: busPIRone 15 MG TABLET 7.5 MG PO ×3 (06:00→22:33)
[2021-11-23 06:48] LABS: Absolute Lymphocyte Count 1.01 X10^3/uL (0.83-4.51); Absolute Neutrophil Count 2.8 X10^3/uL (2.0-7.7); Basophil# 0.01 X10^3/uL; Basophil% 0.2 % (0-1); Eosinophil# 0.02 X10^3/uL; Eosinophils% 0.4 % (0-5); Hematocrit 20.9 % (37-47); Hemoglobin 6.9 g/dL (12.0-15.0); Lymphocyte # 1.01 X10^3/ul (0.83-4.51); Lymphocyte % 21.4 % (19-41); Mean Corpuscular Hgb 33.7 pg (27.0-32.0); Mean Platelet Vol. 9.4 fl (6.2-12.0); Monocyte# 0.84 X10^3/uL; Monocyte% 17.8 % (0-10); NRBC Flagged by Analyzer 0 % (0-5); Neutrophil # 2.79 X10^3/uL (2.7-7.7); Neutrophil % 58.9 % (47-70); Platelet Count 213 K/mm3 (150-450); RBC Distribution Width CV 17.2 % (11.6-14.6); RBC Distribution Width SD 64.5 fl (35.1-43.9); Red Blood Count 2.05 M/mm3 (4.2-5.4); White Blood Count 4.7 K/mm3 (4.4-11.0)
[2021-11-23] MEDS: Budesonide Respules 0.5 MG/2 ML AMPUL.NEB. INHALATION ×2 (07:08→16:43)
[2021-11-23] MEDS: Albuterol 2.5 MG/3 ML VIAL.NEB. INHALATION ×3 (07:08→16:43)
[2021-11-23 07:13] LABS: Anion Gap 7 (5-15); BUN 14 mg/dL (7-18); BUN/Creat Ratio 19.9 RATIO (10-20); Calcium,Total 8.2 mg/dL (8.5-10.1); Chloride 103 mmol/L (98-107); EST Glomerular Filtration Rate 89 mL/min (>60); Est Glom Filt Rate - Afr Amer 108 mL/min (>60); Estimated Creatinine Clearance 71.03 ml/min; Glucose 106 mg/dL (74-106); Potassium 3.1 mmol/L (3.5-5.1); Sodium Level 140 mmol/L (136-145)
[2021-11-23] MEDS: FLUoxetine 20 MG Capsule 60 MG PO (07:54)
[2021-11-23] MEDS: Potassium Chloride Oral Tablet 20 MEQ 40 MEQ PO (07:54)
[2021-11-23] MEDS: Insulin Glargine-YFGN 100 UNIT/ML Pen 20 UNIT SC (07:55)
[2021-11-23] MEDS: Sodium Chloride 1 GM Tablet PO (07:55)
[2021-11-23] MEDS: Pantoprazole Sodium 40 MG Tablet PO (07:55)
--- NOTE | 2021-11-23 08:09 | PN.HOSP_ITS ---
Subjective Subjective Feels better. Reports that she hit her head a few days ago and was dazed. Objective Data Objective Data Vital Signs: Vital Signs Temp Pulse Resp BP Pulse Ox 36.3 C L 82 16 107/60 97 11/23/21 04:03 11/23/21 06:59 11/23/21 04:03 11/23/21 04:03 11/23/21 04:03 Oxygen Flow Rate (L/min) 3 Oxygen Delivery Method Nasal Cannula Weight: 67.1 kg Body Mass Index (BMI) 25.4 Intake & Output: Intake and Output for Last 24 Hours 11/21/21 11/22/21 11/23/21 23:59 23:59 23:59 Intake Total 635 / 635 1279.58 / 1279.58 Balance 635 / 635 1279.58 / 1279.58 Lab / Micro Data Attestation: I reviewed the patient's lab results. Result Diagrams: 11/23/21 06:30 11/23/21 06:30 Labs: Laboratory Results - last 24 hr 11/22/21 15:30: WBC 5.7, RBC 2.32 L, Hgb 7.8 L, Hct 23.5 L, MCV 101.3 H, MCH 33.6 H, MCHC 33.2, RDW Std Deviation 63.7 H, RDW Coeff of Lashonda 17.1 H, Plt Count 237, MPV 9.5, Immature Gran % (Auto) 1.200 H, Neut % (Auto) 60.9, Lymph % (Auto) 22.3, Fergus % (Auto) 14.9 H, Eos % (Auto) 0.5, Baso % (Auto) 0.2, Absolute Neuts (auto) 3.4, Absolute Lymphs (auto) 1.26, Nucleated RBC % 0 11/22/21 15:30: Sodium 140, Potassium 2.9 L, Chloride 101, Carbon Dioxide 32.0, Anion Gap 7, BUN 18, Creatinine 0.84, Estim Creat Clear Calc 59.20, Est GFR (MDRD) Af Amer 89, Est GFR (MDRD) Non-Af 73, BUN/Creatinine Ratio 21.6 H, Glucose 101, Calcium 8.6, Total Bilirubin 0.20, AST 19, ALT 14, Alkaline Phosphatase 54, Total Protein 7.1, Albumin 2.8 L, Globulin 4.3 H, Albumin/Globulin Ratio 0.7 L 11/22/21 15:49: Urine Color Straw, Urine Clarity Clear, Urine pH 6.0, Ur Specific [place] 1.010, Urine Protein Negative, Urine Glucose (UA) Normal, Urine Ketones Negative, Urine Occult Blood Negative, Urine Nitrite Negative, Urine Bilirubin Negative, Urine Urobilinogen Normal, Ur Leukocyte Esterase 100 H, U rine RBC 0-5 SEEN, Urine WBC 5-10 SEEN, Ur Squamous Epith Cells 0 SEEN, Urine Bacteria 2+, Urine Mucus 0 SEEN 11/22/21 18:00: Lactic Acid 0.9 11/22/21 22:41: POC Glucose 107 H 11/23/21 06:30: Sodium 140, Potassium 3.1 L, Chloride 103, Carbon Dioxide 30.0, Anion Gap 7, BUN 14, Creatinine 0.70, Estim Creat Clear Calc 71.03, Est GFR (MDRD) Af Amer 108, Est GFR (MDRD) Non-Af 89, BUN/Creatinine Ratio 19.9, Glucose 106, Calcium 8.2 L 11/23/21 06:30: WBC 4.7, RBC 2.05 L, Hgb 6.9 L, Hct 20.9 L, MCV 102.0 H, MCH 33.7 H, MCHC 33.0, RDW Std Deviation 64.5 H, RDW Coeff of [place]ashonda 17.2 H, Plt Count 213, MPV 9.4, Immature Gran % (Auto) 1.300 H, Neut % (Auto) 58.9, Lymph % (Auto) 21.4, Fergus % (Auto) 17.8 H, Eos % (Auto) 0.4, Baso % (Auto) 0.2, Absolute Neuts (auto) 2.8, Absolute Lymphs (auto) 1.01, Nucleated RBC % 0 Radiography Diagnostic Testing: Radiology Impression Chest X-Ray 11/22/21 16:10 IMPRESSION: There is a right pleural effusion. Right perihilar pneumonia. Electronically Signed: Adam Sheridan MD at 16:40 EDT Reading Location ID and State: [facility] / [place] , Service support , Physical Exam Const alert and no apparent distress Resp normal respiratory effort, no retractions, no use of accessory muscles and clear to auscultation bilaterally Cardio regular rate, regular rhythm, S1 normal heart sound and S2 normal heart sound GI normal to inspection, nondistended, normoactive bowel sounds, soft to palpation, non-tender and non-distended Extremity normal to inspection Neuro no focal motor deficits Sensorium / Orientation: awake Psych affect normal Assessment & Plan Assessment/Plan (1) Infectious encephalopathy: (2) Urinary tract infection: (3) Right middle lobe pneumonia: (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 acute metabolic encephalopathy * improved * 2/2 metastatic lesions. possibly complicated by PNA, doubt UTI, and post concussion syndrome. * DC potentiating medications * alprazolam and oxycodone ordered on admission, will DC * reviewed OAR[facility], no recent Rx since July 21. UTI * unlikely * UA rather benign in appearance * follow up cultures 3. 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 SCLC * stage IV * w brain mets * DW Dr. Osman, plan for WB XRT. Likely to start 11/25 * MRI brain 11/23/2021: * 1. Numerous/extensive small to moderate size rounded metastatic lesions are scattered throughout the bilateral cerebral hemispheres, thalamic lobes, the right side of the midbrain, and throughout both the left and right cerebellar lobes. * 2. A mildly hemorrhagic metastatic tumor is present in the posterior superior aspect of the left parietal lobe measuring 2.0 x 1.17 cm. * 3. The metastatic lesions of the brain parenchyma extends to the apex of the skull. These lesions diffusely enhance on the postcontrast portion of the study. * DW the radiologist, who said the parietal hemorrhage is unchanged from October * MRI Brain 11/01/2021: * 1. Numerous small and punctate foci of enhancement throughout the supratentorial and infratentorial brain parenchyma associated with mild di ffusion hyperintensity and a few of them associated microhemorrhages. Findings may relate to embolic subacute infarcts and/or hemorrhagic metastatic disease. No significant mass effect. Recommend follow-up evaluation with contrast-enhanced MRI brain in 5-6 weeks. * 2. Small early subacute left parietal lobe parenchymal hematoma with associated central and peripheral enhancement and mild surrounding vasogenic edema. Apparent enhancement may relate to contrast leakage/extravasation and/or enhancement surrounding subacute hematoma. Considerations would include underlying metastatic disease. Attention on follow-up is recommended. Additional small acute 5 mm parenchymal hematoma in the medial left parietal lobe. * 3. Multiple foci of microhemorrhages throughout the supratentorial and infratentorial brain parenchyma, many of which are not associated with the enhancing foci and appears new from January 25, 2021. Findings are nonspecific but may relate to sequela of embolic disease among other considerations. 5. Macrocytic anemia * Hg 6.9 * transfuse 1 unit * monitor 6. Hypokalemia * replace * check magnesium 7. VTE prophylaxis: SCDs 8. DM2 * fair control * on glargine and SSI Greater than 40 minutes of which Shiva for present time was discussing with radiologist about the reports comparing prior images, discussing with Dr. Wallace about brain mets and XRT. Charges/Coding Visit Charges Inpatient E&M: 45986 Subs Hosp L3
[2021-11-23 09:18] LABS: Magnesium 1.3 mg/dL (1.6-2.6)
[2021-11-23 10:55] LABS: Bedside Glucose 116 mg/dL (74-106)
[2021-11-23] MEDS: Metoprolol Tartrate 50 MG Tablet PO ×2 (11:33→22:38)
--- NOTE | 2021-11-23 11:50 | CASEMGMT ---
RN NINA FRAME EXPANDER CM to room to meet with patient for initial transition planning/care coordination assessment. MACK WOOD introduced self and role at [facility]. Pt voices understanding and consents to assessment at this time. Pt resting in bed in no distress at this time. Pt is A/O at this time. Dtr, Harriet, son, Bradley, julieta villrareal @ bedside. Pt agreeable to them being present for assessment. The following information provided by pt and family. Care providers, pharmacy, and demographics verified/updated at this time. PCP: Dr Duarte Specialists: Dr Gaspar--oncology, Dr Pretty-pulmonology, Dr Rubio-work order detailer, Dr Rivera-cardiology, Dr Ramos--neuro surgeon @ [facility]/[place]. Pt was getting chemo, but that is on hold currently. Pt and family report pt may be wishing to resume chemo and may need radiation. [facility] Insurance: [facility] Prescription Benefit: Yes Living Will/HPOA: Pt has LW and HPOA. Current HPOA on file @ [facility] is Sig other, Austin Hidalgo. Dtr, Harriet Mays, is 1st alternative and son, Bradley Gonzalez, is 2nd alternative. Harriet inquiring about how she could be listed as primary POA, along with Austin, and also inquiring about documents/process to be pt's permanent legal decision maker, such as guardianship. Pt agreeable that she would like to complete updated AD and get further info. Harriet and pt made aware SW will be notified. LNOK: See above. Living Arrangements: Lives w/sig other/POA, Austin, in one-story home w/4 steps to enter w/hand-rails on one side. Transportation: Pt does not drive. Family or sig other provides all transportation. DME: Pt has the following DME: shower chair, BSC, umberto kovacs, W/C, functioning glucometer w/supplies, Oxygen through [employer] @ 3-4 l/m. Pt has concentrator and portability. Pt and family state no need for further DME at this time. HHC/SNF: No hx of either. Dtr, Harriet, states pt is needing 24/hr care and the family and sig other, Austin, are trying to come up with a plan for pt to be @ home w/family helping to care for her. Harriet states is interested in pt going to SNF, short-term, while they are looking into this. Family asking about HHC. Questions answered. Harriet states they plan to discuss options w/pt, Austin, and family and will notify CM/SW. Pt initially stated she does not want to go to a SNF, but states wishes to have the family discussion 1st and may be agreeable, if needed. Pt and family voice no further concerns/needs at this time. Advised pt and family to ask for CM if any further questions/concerns/needs arise. They voice understanding. PLAN: TBD. Holli HERNANDEZ RN CM
[2021-11-23 12:21] LABS: Bedside Glucose 114 mg/dL (74-106)
[2021-11-23] MEDS: 0.9% Saline Lock 10 ML Syringe IV ×2 (12:32→22:44)
[2021-11-23] MEDS: dexAMETHasone 4 MG/ML Vial IV ×2 (12:33→22:39)
--- NOTE | 2021-11-23 13:05 | RAO.CON ---
Intake Vital Signs 11/22/21 13:09 11/22/21 15:33 11/22/21 18:04 11/22/21 18:06 11/22/21 18:30 11/22/21 18:38 11/22/21 18:39 11/22/21 19:40 11/22/21 20:31 11/22/21 22:43 11/22/21 22:47 11/23/21 03:00 11/23/21 04:03 11/23/21 04:28 11/23/21 06:59 11/23/21 07:08 11/23/21 07:08 11/23/21 07:45 11/23/21 10:40 11/23/21 11:33 11/23/21 11:57 11/23/21 12:12 11/23/21 13:07 11/23/21 13:12 Height 5 ft 4 in 5 ft 4 in Weight: 150 lb 147 lb 14.883 oz BMI 25.7 25.4 BP 114/59 L 108/85 H 108/85 H 102/53 L 97/56 L 97/56 L 107/60 100/58 L 100/58 L 118/65 106/94 H 127/67 H Position Semi-Fowlers Semi-Fowlers Semi-Fowlers Semi-Fowlers Semi-Fowlers Semi-Fowlers Semi-Fowlers Respiration 18 18 18 20 H 20 H 16 16 16 18 18 18 16 18 Pulse 79 77 77 78 76 80 80 80 84 76 82 85 88 88 88 88 79 95 Temp 97 F L 98.4 F 98.4 F 97.8 F 97.5 F L 97.3 F L 98.4 F 97.8 F 97.8 F 98.1 F Pulse Oximetry (%) 97 100 100 96 96 97 97 96 97 98 96 Oxygen Flow Rate (L/min) 3 2 3 3 2 2 2 3 3 3 3 3 Intake Visit Reasons: ACUTE ENCEPHALOPATHY Chief Complaint: encephalopathy RML pneumonia UTI small cell CA Allergies No Known Allergies Allergy (Verified 11/22/21 13:09) Medications nitroglycerin 0.4 mg SL Q5M PRN 07/03/13 [History Confirmed 11/22/21] lidocaine-prilocaine 2.5 %-2.5 % topical cream 1 applic TOPICAL ONCE PRN 30 Days #30 g 05/03/21 [Rx Confirmed 11/22/21] atorvastatin 40 mg tablet 40 mg PO QHS #90 tablet 02/10/21 [Rx Confirmed 11/22/21] budesonide-formoterol [Symbicort] 2 puff INHALATION BID 05/24/21 [History Confirmed 11/22/21] insulin aspart U-100 [Novolog Flexpen U-100 Insulin] 12 - 14 unit SC TID 05/24/21 [History Confirmed 11/22/21] ondansetron 8 mg disintegrating tablet 8 mg PO Q8H PRN #30 tab 06/08/21 [Rx Confirmed 11/22/21] fluoxetine 20 mg capsule 60 mg PO DAILY 90 Days #270 cap 06/21/21 [Rx Confirmed 11/22/21] lisinopril 10 mg tablet 10 mg PO DAILY #90 tab 06/21/21 [Rx Confirmed 11/22/21] pen needle, diabetic 32 gauge x 5/32 #150 ea 06/24/21 [Rx Confirmed 11/09/21] alprazolam 0.25 mg tablet 0.25 mg PO DAILY PRN #10 tab 07/30/21 [Rx Confirmed 11/22/21] Trulicity 1.5 mg/0.5 mL subcutaneous pen injector 1.5 mg SUBCUT FR #6 ml NS 08/17/21 [Rx Confirmed 11/22/21] pantoprazole 20 mg tablet,delayed release 40 mg PO DAILY #90 tab 09/02/21 [Rx Confirmed 11/22/21] metformin 1,000 mg tablet 1,000 mg PO BID #180 tab 09/03/21 [Rx Confirmed 11/22/21] buspirone 7.5 mg PO TID 11/22/21 [History Confirmed 11/22/21] furosemide 40 mg PO DAILY 11/22/21 [History Confirmed 11/22/21] insulin glargine [Lantus Solostar U-100 Insulin] 20 unit SC QAM 11/22/21 [History Confirmed 11/22/21] magnesium oxide 200 mg PO BID 11/22/21 [History Confirmed 11/22/21] metoprolol tartrate 50 mg PO BID 11/22/21 [History Confirmed 11/22/21] potassium chloride 40 meq PO DAILY 11/22/21 [History Confirmed 11/22/21] sodium chloride 1,000 mg PO DAILY 11/22/21 [History Confirmed 11/22/21] Home Medications Acetaminophen (Acetaminophen 325 Mg Tablet) 650 mg PO Q6H PRN PRN PRN Reason: Pain Score 1-10/Temp > 100.7 F Albuterol Sulfate (Albuterol 2.5 Mg/3 Ml Vial.Neb.) 2.5 mg INHALATION Q6HWA.RT [facility] Last Admin: 11/23/21 13:07 Dose: 2.5 mg Documented by: Atorvastatin Calcium (Atorvastatin Calcium 40 Mg Tablet) 40 mg PO QHS [facility] Last Admin: 11/22/21 22:48 Dose: 40 mg Documented by: Budesonide (Budesonide Respules 0.5 Mg/2 Ml Ampul.Neb.) 0.5 mg INHALATION Q12H.RT [facility] Last Admin: 11/23/21 07:08 Dose: 0.5 mg Documented by: Buspirone HCl (Buspirone 15 Mg Tablet) 7.5 mg PO TID [facility] Last Admin: 11/23/21 13:32 Dose: 7.5 mg Documented by: Dexamethasone Sodium Phosphate (Dexamethasone 4 Mg/Ml Vial) 4 mg IV Q12 [facility] Last Admin: 11/23/21 12:33 Dose: 4 mg Documented by: Fluoxetine HCl (Fluoxetine 20 Mg Capsule) 60 mg PO DAILY [facility] Last Admin: 11/23/21 07:54 Dose: 60 mg Documented by: Furosemide (Furosemide 40 Mg Tablet) 40 mg PO DAILY [facility] Last Admin: 11/23/21 10:59 Dose: Not Given Documented by: Guaifenesin (Guaifenesin 10 Ml Udc (200mg/10ml)) 20 ml PO Q4H PRN PRN PRN Reason: COUGH Vancomycin IV-PHARMACY TO DOSE (1 each/ Sodium Chloride) 500 mls @ 250 mls/hr IV X1 PRN; Protocol PRN Reason: Rx to Dose Piperacillin Sod/Tazobactam (Sod 3.375 gm/ Sodium Chloride) 50 mls @ 12.5 mls/hr IV Q8 [facility] Last Infusion: 11/23/21 12:54 Dose: Infused Documented by: Vancomycin HCl 750 mg/ Sodium (Chloride) 265 mls @ 250 mls/hr IV Q12H [facility] Last Infusion: 11/23/21 07:06 Dose: Infused Documented by: Insulin Glargine (Insulin Glargine-Yfgn 100 Unit/Ml Pen) 20 unit SC BREAKFAST [facility] Last Admin: 11/23/21 07:55 Dose: 20 unit Documented by: Insulin Human Lispro (Insulin Lispro 100 Unit/Ml Insuln.Pen) 12 unit SC 0800,1200,1700 [facility] Last Admin: 11/23/21 12:36 Dose: Not Given Documented by: Insulin Human Lispro (Insulin Lispro 100 Unit/Ml Insuln.Pen) 0 unit SC ACHS [facility]; Protocol Last Admin: 11/23/21 11:24 Dose: Not Given Documented by: Lidocaine/Prilocaine (Lidocaine/Prilocaine Hcl 5 Gm Tube) 1 gm TOPICAL DAILY PRN PRN Reason: Port Access Lisinopril (Lisinopril 10 Mg Tablet) 10 mg PO DAILY [facility] Last Admin: 11/23/21 10:40 Dose: Not Given Documented by: Metoprolol Tartrate (Metoprolol Tartrate 50 Mg Tablet) 50 mg PO BID [facility] Last Admin: 11/23/21 11:33 Dose: 50 mg Documented by: Nitroglycerin (Nitroglycerin (Inpatient Use) 0.4 Mg Tab.Subl) 0.4 mg SL Q5M PRN PRN Reason: CARDIAC/CHEST PAIN Ondansetron HCl (Ondansetron 8 Mg Tablet) 8 mg PO Q8H PRN PRN Reason: nausea and vomiting Ondansetron HCl (Ondansetron 4 Mg/2 Ml Vial) 4 mg IV Q8H PRN PRN PRN Reason: NAUSEA/VOMITING Pantoprazole Sodium (Pantoprazole Sodium 40 Mg Tablet) 40 mg PO DAILY [facility] Last Admin: 11/23/21 07:55 Dose: 40 mg Documented by: Potassium Chloride (Potassium Chloride Oral Tablet 20 Meq) 40 meq PO BREAKFAST [facility] Last Admin: 11/23/21 07:54 Dose: 40 meq Documented by: Sodium Chloride (0.9% Saline Lock 10 Ml Syringe) 10 - 40 ml IV UD PRN PRN Reason: Port-a-Cath (VAD) Flush Last Admin: 11/23/21 12:32 Dose: 10 ml Documented by: Sodium Chloride (0.9 % Nacl (Sterile) Posiflush 10 Ml) 10 - 40 ml IV UD PRN PRN Reason: Port access or dressing change Sodium Chloride (Sodium Chloride 1 Gm Tablet) 1 gm PO DAILY [facility] Last Admin: 11/23/21 07:55 Dose: 1 gm Documented by: Discontinued Medications Alprazolam (Alprazolam 0.25 Mg Tablet) 0.25 mg PO DAILY PRN PRN PRN Reason: anxiety Enoxaparin Sodium (Enoxaparin 40 Mg/0.4 Ml Syringe) 40 mg SC DAILY SONIA Heparin Sodium (Beef Lung) (Heparin Pf Lock 10 Units/Ml 50 Units/5 Ml Syringe) 50 units IV UD PRN PRN Reason: Port-a-Cath (VAD)Heparin Flush Vancomycin HCl 1,750 mg/ (Sodium Chloride) 535 mls @ 250 mls/hr IV X1 ONE Stop: 11/22/21 19:03 Last Infusion: 11/22/21 20:55 Dose: Infused Documented by: Piperacillin Sod/Tazobactam (Sod 4.5 gm/ Sodium Chloride) 100 mls @ 200 mls/hr IV X1 ONE Stop: 11/22/21 17:24 Last Infusion: 11/22/21 18:50 Dose: Infused Documented by: Sodium Chloride () 1,000 mls @ 125 mls/hr IV .Q8H SONIA Stop: 11/23/21 10:40 Last Admin: 11/23/21 04:49 Dose: Not Given Documented by: Nitroglycerin (Nitroglycerin Sl (Ed/Img/Cath) 0.4 Mg Tablet) 0.4 mg SL Q5M PRN PRN Reason: Chest Pain Non-Formulary Medication (Budesonide-Formoterol) 2 puff INHALATION BID [facility] Non-Formulary Medication (Dulaglutide) 1.5 mg SC FR [facility] Non-Formulary Medication (Magnesium Oxide) 200 mg PO BID [facility] Oxycodone HCl (Oxycodone 5 Mg Tablet) 5 mg PO Q4H PRN PRN PRN Reason: Pain Score 4-5 Potassium Chloride (Potassium Chloride Oral Soln 20 Meq/15 Ml Udc) 40 meq PO X1 ONE Stop: 11/22/21 17:03 Last Admin: 11/22/21 18:12 Dose: 40 meq Documented by: [facility] Medical History Anxiety Atherosclerosis of [place] coronary artery of [place] heart without angina pectoris Brain aneurysm Cancer Carcinoma, lung Cardiac dysrhythmia Cardiology follow-up encounter Congestive heart failure COPD (chronic obstructive pulmonary disease) Coronary artery disease Cough Depression Diarrhea Diarrhea due to drug DVT (deep venous thrombosis) Edema Electrolyte abnormality Encounter for chemotherapy management Encounter for immunotherapy Former smoker Gastric reflux GERD (gastroesophageal reflux disease) Hiatal hernia History of blood transfusion History of echocardiogram History of fatty infiltration of liver History of stress test Hyperlipidemia Hypertension Hypokalemia Hypomagnesemia Injury of head and neck Loose, teeth Low iron Lower extremity edema Myocardial infarct On home oxygen therapy Oxygen dependent Presence of stent in coronary artery (~05/2011) Restless legs Shortness of breath on exertion Sinus drainage Syncope Tremor Type II diabetes mellitus Uses wheelchair Vertigo Wears partial dentures Home Medications nitroglycerin 0.4 mg SL Q5M PRN 07/03/13 [History Last Taken 06/19/12 0.4] lidocaine-prilocaine 2.5 %-2.5 % topical cream 1 applic TOPICAL ONCE PRN 30 Days #30 g 10/19/20 [Rx Last Taken Unknown] atorvastatin 40 mg tablet 40 mg PO QHS #90 tablet 02/10/21 [Rx Last Taken Unknown] budesonide-formoterol [Symbicort] 2 puff INHALATION BID 05/24/21 [History Last Taken Unknown] insulin aspart U-100 [Novolog Flexpen U-100 Insulin] 12 - 14 unit SC TID 05/24/21 [History Last Taken Unknown] ondansetron 8 mg disintegrating tablet 8 mg PO Q8H PRN #30 tab 06/08/21 [Rx Last Taken Unknown] fluoxetine 20 mg capsule 60 mg PO DAILY 90 Days #270 cap 06/21/21 [Rx Last Taken 11/22/21] lisinopril 10 mg tablet 10 mg PO DAILY #90 tab 06/21/21 [Rx Last Taken Unknown] pen needle, diabetic 32 gauge x #150 ea 06/24/21 [Rx Last Taken Unknown] alprazolam 0.25 mg tablet 0.25 mg PO DAILY PRN #10 tab 07/30/21 [Rx Last Taken Unknown] Trulicity 1.5 mg/0.5 mL subcutaneous pen injector 1.5 mg SUBCUT FR #6 ml NS 08/17/21 [Rx Last Taken Unknown] pantoprazole 20 mg tablet,delayed release 40 mg PO DAILY #90 tab 09/02/21 [Rx Last Taken 11/22/21] metformin 1,000 mg tablet 1,000 mg PO BID #180 tab 09/03/21 [Rx Last Taken 11/22/21] buspirone 7.5 mg PO TID 11/22/21 [History Last Taken 11/22/21] furosemide 40 mg PO DAILY 11/22/21 [History Last Taken Unknown] insulin glargine [Lantus Solostar U-100 Insulin] 20 unit SC QAM 11/22/21 [History Last Taken Unknown] magnesium oxide 200 mg PO BID 11/22/21 [History Last Taken Unknown] metoprolol tartrate 50 mg PO BID 11/22/21 [History Last Taken Unknown] potassium chloride 40 meq PO DAILY 11/22/21 [History Last Taken Unknown] sodium chloride 1,000 mg PO DAILY 11/22/21 [History Last Taken 11/22/21] Allergy/AdvReac Type Severity Reaction Status Date / Time No Known Allergies Allergy Verified 11/22/21 13:09 Family History Father , Age 56 Myocardial infarction Heart disease COPD (chronic obstructive pulmonary disease) Mother COPD (chronic obstructive pulmonary disease) Heart disease Surgical History H/O arthroscopic knee surgery H/O elbow surgery History of cardiac catheterization History of carpal tunnel surgery History of cholecystectomy History of coronary artery stent placement History of lumbar surgery History of tubal ligation Hx of biopsy Presence of coronary angioplasty implant and graft Social History household members: spouse housing: house current occupational status: retired Smoking Status: Former smoker quit date: 06/19/13 pack-years: 35 Tobacco: How many years used: 37 how long ago did patient quit smokin years ago second hand exposure: No alcohol intake: never substance use type: does not use caffeine: Yes Type: carbonated beverages Number of servings: 2 and coffee Number of servings: 2 eating out: 1-3 times/week during the past year weight has: increased > 10 lbs lizette/adventist: Taoist seatbelt use: always do you feel safe at home: Yes Referring Provider: Eric Mendoza DO Diagnosis: Heather Sinha is a 60-year-old female diagnosed with extensive stage small cell lung cancer (T2b?T3, N2, M1) status post chest CTA (07/24/2020), CT chest with contrast (09/04/2020), MRI brain (09/25/2020), PET scan (10/13/2020), and evaluation by medical oncology (10/15/2020). 4 cycles of cisplatin/etoposide/Durvalumab (completed 01/12/2021), maintenance Durvalumab (01/12/2021 ? 05/11/2021), second line therapy with carboplatin/irinotecan due to progressive disease (06/08/2021). She was admitted 11/22/2021 for increased confusion and MRI completed 11/23/2021 demonstrated evidence for numerous brain metastases. History of Present Illness: 11/20/2019: CTA of the chest was completed. This demonstrated no pulmonary embolus or aortic dissection. Mosaic perfusion of the lungs is likely due to small airway disease. L1 compression fracture of unknown age. There is a left adrenal nodule which is nonspecific and right upper pole cyst. 07/24/2020: CTA of the chest was completed. There are suspiciously enlarged mediastinal lymph nodes measuring up to 1.5 cm in short axis especially in the AP window and precarinal regions. There is a suspicious 1.5 x 1.9 nodule adjacent to the descending aorta. There is a mass contiguous with the right hilar region extending into the subcarinal which is concerning for neoplastic process or diffuse metastasis. There is also a suspicious mass along the pericardium in the right lower lobe measuring 3.2 x 2.3 cm. The subcarinal mass extending into the right hilar region measures 4.9 x 2.8 x 5 cm. 09/04/2020: CT chest with contrast was performed. This demonstrated a 3.1 x 3.9 cm mass in the medial aspect of the right middle lobe. This has increased in size compared to the prior study. There is stable mild scarring in the lingular segment of the left upper lobe and right middle lobe. Since the prior exam there has been enlargement of the mediastinal lymph nodes worsening in the subcarinal region and extending into the right hilar and infrahilar regions. There is a 1.7 cm nodule in the crux of the left adrenal gland which is unchanged. 09/25/2020: MRI brain was performed there is a right ICA aneurysm likely within the cavernous segment measuring 1.4 cm and no evidence of intracranial metastasis. 10/13/2020: PET scan was performed. This demonstrated increased glucose metabolism defined in the right lower anterior medial right lung middle lobe generating a calculated maximum SUV of 7.5 and measuring 3.9 x 5.5 cm. There are multiple foci of increased glucose metabolism manifest in the presubcarinal anterior and posterior mediastinum as well as the right thoracic perihilum generated a calculated maximum SUV of 8.4 and measuring a maximum dimension 6.3 x 4 cm. No evidence of distant metastatic disease is identified. 10/15/2020: Patient had follow-up with medical oncology to review imaging results. Appears to have limited disease and recommended chemoradiation. We will proceed with thoracentesis to rule out malignant pleural effusion. 10/20/2020 -10/25/2020: Patient was admitted to the hospital for hypoxia/COPD exacerbation and supraventricular tachycardia. Patient required BiPAP. Once oxygenation improved thoracentesis was performed due to having a right-sided pleural effusion, 400 mL of fluid was removed and fluid was lymphocyte predominant. Cytology demonstrated evidence for metastatic small cell lung cancer. 01/12/2021: completed 4 cycles of cisplatin/etoposide/Durvalumab 01/12/2021 ? 05/11/2021: received maintenance Durvalumab 01/25/2021: MRI brain with and without contrast was performed. This demonstrated a stable 16mm right cavernous sinus lesion which may represent aneurysm or more likely a meningioma. No other abnormalities are appreciated. 05/26/2021: Patient completed biopsy of a right middle lobe bronchial mass which demonstrated small cell carcinoma, diagnosed with progressive disease. 06/08/2021: Patient initiated second line therapy with carboplatin/irinotecan 08/05/2021: CT chest/abdomen with contrast was performed. This demonstrated minimal improvement of the mass surrounding the mediastinum and right hilum. 10/07/2021: CT chest/abdomen with contrast was performed. This demonstrated that the majority of the mediastinal right hilar mass has not significantly changed although there is a small component on the right hilum and subcarinal area that may be slightly larger. There is a new right upper lobe pulmonary nodule measuring 5 mm and also increased nodular thickening extending along the fissure from the right hilum. On slight increased narrowing of the SVC without obvious obstruction. Stable left adrenal gland thickening. 11/01/2021: MRI brain with and without contrast was performed. This demonstrated a small parenchymal hematoma within the left parietal lobe measuring 1.8 x 1.3 cm which appears unchanged from the prior CT head. The hematoma demonstrates areas of intrinsic T1 shortening with central and peripheral enhancement and mild surrounding vasogenic edema. There is a small parenchymal hematoma within the medial left parietal lobe measuring 0.5 cm with no definite associated enhancement and mild surrounding edema. There are numerous foci of small and punctate enhancement throughout the supratentorial and infratentorial brain a few lesions are associated with petechial hemorrhage, there is no mass-effect midline shift or evidence of downward herniation. Additional microhemorrhages throughout the supratentorial and infratentorial brain many of which are not associated with enhancing foci within the brain parenchyma. 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 Findings of the numerous punctate lesions may relate to embolic subacute infarcts and/or hemorrhagic metastatic disease, recommend follow-up evaluation with contrast-enhanced MRI brain in 5-6 weeks. 11/23/2021: Brain MRI with and without contrast was performed. This demonstrated numerous and extensive small to moderate size rounded metastatic lesions scattered throughout the bilateral cerebral hemispheres, thalamic lobes, right side of the midbrain, throughout both the left and right cerebellar lobes, and cinthya. Vasogenic edema is present around the metastatic lesions. Radiation Treatment History: No prior history of radiation therapy. No pacemaker. No diagnosis of radiosensitizing comorbidity. Interval History: Patient was seen in the hospital for consultation. She has had increasing confusion and mental status changes over the last week. Her family reports that she sometimes has a hard time caring on a lucid conversation but at other times appears totally normal. She has had 2 falls in the last couple weeks, both times she reports falling off the toilet for an unknown reason and she did hit her head. She has had some increase in headaches since these falls but also has some headaches occasionally at baseline. She denies seizures, nausea/vomiting focal weakness/numbness. She does report back pain which is chronic, she did have a fracture in the last year and had surgery in her back. She denies urinary frequency or dysuria. She does have an intermittent cough which is generally nonproductive, she denies hemoptysis, fever/chills. With her new confusion she does have some difficulty completing ADLs. She denies having other problems or concerns at this time. Review of Systems: A 12-point review of systems was completed and was negative except for what is noted in the HPI/Interval History and by the nurse. Physical Exam: Weight: 147 lbs ECO KAR[place]KY SCORE: 60% CONSTITUTIONAL: Well-developed, well-nourished, and in no apparent distress. NECK: Supple, no thyromegaly, and non-tender. Trachea midline. No cervical or supraclavicular adenopathy noted. CARDIAC: Regular rate and rhythm. Normal S1, S2. No murmurs, rubs, or gallops. PULMONARY/CHEST: Lungs are clear to auscultation and percussion bilaterally. No wheezes, rhonchi, or crackles noted. No increased work of breathing. ABDOMINAL: Abdomen soft, non-tender, non-distended. No hepatomegaly. Normoactive bowel sounds in all four quadrants. No guarding, rebound. BACK: Straight and aligned. No CVA tenderness. Axial skeleton non-tender to percussion. EXTREMITIES: Full range of motion in all four extremities. No evidence of edema. NEUROLOGICAL EXAM: Alert and oriented x 3, lucid during our discussion and answers questions and follows commands appropriately. Cranial nerves II through XII are grossly intact. No focal neurological deficit. Speech is fluent. Muscle strength is 5/5 in all muscle groups. Gait not tested. PSYCHIATRIC: Appropriate mood and affect for the clinical situation. Imaging: As per HPI Laboratory Data: 11/23/2021: Hemoglobin 6.9, potassium 3.1. Otherwise CBC and CMP unremarkable 11/22/2021: UA unremarkable Assessment & Plan Assessment/Plan (1) Brain metastases: PLAN: Assessment: Heather Sinha is a 60-year-old female diagnosed with extensive stage small cell lung cancer (T2b?T3, N2, M1) status post chest CTA (07/24/2020), CT chest with contrast (09/04/2020), MRI brain (09/25/2020), PET scan (10/13/2020), and evaluation by medical oncology (10/15/2020). 4 cycles of cisplatin/etoposide/Durvalumab (completed 01/12/2021), maintenance Durvalumab (01/12/2021 ? 05/11/2021), second line therapy with carboplatin/irinotecan due to progressive disease (06/08/2021). She was admitted 11/22/2021 for increased confusion and MRI completed 11/23/2021 demonstrated evidence for numerous brain metastases. Plan: Patient was seen for inpatient consultation due to having increasing confusion and MRI concerning for development of numerous metastatic lesions. She had an MRI completed at [facility] about 1 month ago which demonstrated multifocal punctate areas that were very small and repeat MRI in 5 to 6 weeks was recommended as the etiology of these lesions was uncertain. The current MRI clearly demonstrates progression of metastatic disease with increasing vasogenic edema, increasing number and size of contrast-enhancing lesions, this is very consistent with metastatic disease which is very likely given her diagnosis of extensive stage small cell lung cancer. I reviewed the results of the imaging studies with the patient and her family and also reviewed treatment options. Given the number and location of the brain metastases and histology of disease I recommended completing whole brain radiation therapy with concurrent memantine. She is on second line systemic therapy with carboplatin/irinotecan and has not had this treatment for about 1 month, will continue to hold during whole brain radiation and would likely need restaging of extracranial disease. I think it is likely that the confusion that she is experiencing may be from brain metastasis/edema given these changes over the last month and the changes demonstrated between the 2 MRIs. Recommend Decadron to reduce swelling 4 mg twice daily to be initiated. I reviewed the logistics of whole brain radiation therapy including CT simulation, treatment planning, and daily fractionated treatment delivery for 10 fractions. I discussed the risk, benefits, and alternatives to palliative whole brain radiation therapy and answered all questions. The goals of treatment were reviewed in detail and include to provide improved disease control within the brain. I discussed the potential acute and chronic toxicities from whole brain radiation therapy and this would include but is not limited to fatigue, scalp irritation, headache, nausea/vomiting, decreased hearing, dry mouth, hair loss, decrease in cognitive functioning/short-term memory deficit, radiation necrosis. Reviewed options of trying to improve cognitive function and will prescribe memantine. Following our discussion the patient desired to proceed with whole brain radiation therapy and informed consent was obtained. We will complete CT simulation in the near future in an effort to expedite treatment start. Patient was instructed to call with any further questions or concerns in the interim. Thank you for allowing me to participate in the management and care of your patient. If I may answer any questions in the interim, please do not hesitate to contact me at any time. Robson Wallace DO, MS Chief Solution Architect, Department of Radiation Oncology [facility] [place] Coding Level of Care Code Off vis,new,level 5 Diagnoses Brain metastases C79.31
[2021-11-23] MEDS: Acetaminophen 325 MG Tablet 650 MG PO (14:27)
--- NOTE | 2021-11-23 16:10 | CASEMGMT ---
Social Work PCU Reason for Consult: Advanced Directives Referral source: MACK WOOD Social work consulted for assistance in completing advanced directives, naming patient's daughter Harriet as the POAHC. Records reviewed. Noted in record that patient completed advanced directives in October 2020 with significant other first, then daughter and then son. This technical report writer is familiar with patient from prior outpatient encounters with the oncology department at [facility]. Received call from patient's daughter inquiring about completion of advanced directives before patient leaves and before patient becomes too incoherent from brain metastases. Harriet acknowledged that patient completed the advanced directives last year, but that patient wants Harriet to now be primary due to talking to patient daily and knowing what patient's wishes are, as well as feeling able to follow through with patient's wishes. Harriet reported that patient's significant other Austin has reportedly expressed not feeling up to being the POAHC and making needed decisions for this patient. Supportive listening offered. Presented to patient's room and found patient sleeping, with patient's daughter at bedside. Patient woke up briefly and indicated remembering this technical report writer from prior encounter. Educated patient that present to talk about advanced directives, to which patient smiled and nodded head yes. Explored whether patient would like to discuss now, or tomorrow when patient is more awake. Patient asked this technical report writer to come back tomorrow. Patient then dozed back off to sleep. Educated Harriet that if the primary power of print line feeder on a POAHC identifies not being up to the responsibility, then this defers to the next person on the form. Bryanna reports will talk over options with the patient. Let Bryanna know that this technical report writer will be back tomorrow, and will also be talking things through with patient about wishes and understanding of the situation. Bryanna expressed to understand the need for social worker palliative care to make own assessment, as well as to be in agreement with such. Plan: SW to follow, with plan to meet with patient on 11.24.2021. -LOLY Leal, EDB
[2021-11-23] MEDS: guaiFENesin 10 ML UDC (200MG/10ML) 20 ML PO (16:35)
[2021-11-23 16:36] LABS: Bedside Glucose 145 mg/dL (74-106)
[2021-11-23] MEDS: Insulin Lispro 100 UNIT/ML INSULN.PEN 12 UNIT SC (17:07)
[2021-11-23] MEDS: Atorvastatin Calcium 40 MG Tablet PO (22:38)
[2021-11-24] VITALS (13 sets, daily range): BP systolic 117–133; BP diastolic 62–72; PULSE 58–88; RESP 14–22; TEMP 36.1–36.9; O2SAT 93–100
[2021-11-24 00:35] LABS: Bedside Glucose 123 mg/dL (74-106)
[2021-11-24] MEDS: guaiFENesin 10 ML UDC (200MG/10ML) 20 ML PO ×4 (01:35→21:48)
[2021-11-24] MEDS: busPIRone 15 MG TABLET 7.5 MG PO ×3 (06:21→21:40)
[2021-11-24 06:29] LABS: Basophil# 0.01 X10^3/uL; Basophil% 0.2 % (0-1); Hematocrit 26.8 % (37-47); Hemoglobin 8.9 g/dL (12.0-15.0); Lymphocyte % 12.5 % (19-41); Mean Corp Hgb Conc 33.2 g/dL (32-36); Mean Corpuscular Hgb 31.6 pg (27.0-32.0); Mean Platelet Vol. 9.3 fl (6.2-12.0); Monocyte# 0.57 X10^3/uL; Monocyte% 8.9 % (0-10); NRBC Flagged by Analyzer 0 % (0-5); Neutrophil # 4.98 X10^3/uL (2.7-7.7); Neutrophil % 77.6 % (47-70); POSITIVE MORPHOLOGY YES; Platelet Count 223 K/mm3 (150-450); RBC Distribution Width CV 19.6 % (11.6-14.6); RBC Distribution Width SD 68.5 fl (35.1-43.9); Red Blood Count 2.82 M/mm3 (4.2-5.4); White Blood Count 6.4 K/mm3 (4.4-11.0)
[2021-11-24 06:31] LABS: Differential Indicated SCAN CRITERIA MET
[2021-11-24 06:46] LABS: Differential Comment SCANNED; Polychromasia RARE
[2021-11-24 06:47] LABS: Anisocytosis 2+; Microcytosis 1+
[2021-11-24 06:52] LABS: Anion Gap 6 (5-15); BUN 13 mg/dL (7-18); BUN/Creat Ratio 21.8 RATIO (10-20); Calcium,Total 8.9 mg/dL (8.5-10.1); Chloride 103 mmol/L (98-107); EST Glomerular Filtration Rate 108 mL/min (>60); Est Glom Filt Rate - Afr Amer 130 mL/min (>60); Estimated Creatinine Clearance 82.87 ml/min; Glucose 134 mg/dL (74-106); Potassium 3.3 mmol/L (3.5-5.1); Sodium Level 138 mmol/L (136-145)
[2021-11-24 07:00] LABS: Vancomycin, Trough Level 11.2 ug/mL (5.0-15.0)
[2021-11-24] MEDS: Albuterol 2.5 MG/3 ML VIAL.NEB. INHALATION ×3 (07:44→19:00)
[2021-11-24] MEDS: Budesonide Respules 0.5 MG/2 ML AMPUL.NEB. INHALATION ×2 (07:44→19:00)
--- NOTE | 2021-11-24 08:03 | PHA.PHARE_ITS ---
Consult Pharmacy has been consulted to manage selected antiobiotic: Vancomycin Type of Consult: Follow-up Prior Doses of Antibiotics Received/Current Regimen: 750MG IV Q12 Labs: Sodium 138 mmol/L (136-145) 11/24/21 06:20 Potassium 3.3 mmol/L (3.5-5.1) L 11/24/21 06:20 Chloride 103 mmol/L (98-107) 11/24/21 06:20 Carbon Dioxide 29.0 mmol/L (21.0-32.0) 11/24/21 06:20 Anion Gap 6 (5-15) 11/24/21 06:20 BUN 13 mg/dL (7-18) 11/24/21 06:20 Creatinine 0.60 mg/dL (0.55-1.02) 11/24/21 06:20 Est GFR (MDRD) Af Amer 130 mL/min (>60) 11/24/21 06:20 Est GFR (MDRD) Non-Af 108 mL/min (>60) 11/24/21 06:20 BUN/Creatinine Ratio 21.8 RATIO (10-20) H 11/24/21 06:20 Glucose 134 mg/dL (74-106) H 11/24/21 06:20 Vancomycin Trough 11.2 ug/mL (5.0-15.0) 11/24/21 06:20 Microbiology: Microbiology 11/23/21 11:40 Nasal Secretion SARS-CoV-2 & FLU Antigen (Rapid) - Final 11/23/21 11:20 Urine, Random Legionella Antigen - Final 11/23/21 11:20 Urine, Random Streptococcus pneumoniae Antigen (M - Final 11/22/21 15:49 Urine, Clean Catch Urine Culture - 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 WILL INCREASE DOSE TO 1GM IV Q12H. A REPEAT TROUGH ORDERED FOR 11.25.21 BEFORE 4TH DOSE OF NEW REGIMEN PER POLICY. Pharmacy Service will continue to monitor and adjust dosing as required. Follow-Up Labs: Trough Vancomycin - .03.10 @1930 BEFORE 200 DOSE
--- NOTE | 2021-11-24 08:08 | PN.HOSP_ITS ---
Subjective Subjective feels well. had mask fitting today for XRT. Objective Data Objective Data Vital Signs: Vital Signs Temp Pulse Resp BP Pulse Ox 36.1 C L 82 16 121/72 H 98 11/24/21 03:25 11/24/21 07:00 11/24/21 03:25 11/24/21 03:25 11/24/21 03:25 Oxygen Flow Rate (L/min) 3 Oxygen Delivery Method Nasal Cannula Weight: 67.1 kg Body Mass Index (BMI) 25.4 Intake & Output: Intake and Output for Last 24 Hours 11/22/21 11/23/21 11/24/21 23:59 23:59 23:59 Intake Total 635 / 635 2764.58 / 2764.58 50 / 50 Output Total 250 / 250 Balance 635 / 635 2764.58 / 2514.58 -200 / -200 Lab / Micro Data Result Diagrams: 11/24/21 06:20 11/24/21 06:20 Labs: Laboratory Results - last 24 hr 11/23/21 06:30: Magnesium 1.3 L 11/23/21 07:44: POC Glucose 116 H 11/23/21 08:50: Blood Type A POSITIVE, Antibody Screen NEGATIVE, Crossmatch See Detail 11/23/21 11:23: POC Glucose 114 H 11/23/21 16:29: POC Glucose 145 H 11/23/21 22:12: POC Glucose 123 H 11/24/21 06:20: Vancomycin Trough 11.2 11/24/21 06:20: WBC 6.4, RBC 2.82 L, Hgb 8.9 L, Hct 26.8 L, MCV 95.0 D, MCH 31.6, MCHC 33.2, RDW Std Deviation 68.5 H, RDW Coeff of [place] 19.6 H, Plt Count 223, MPV 9.3, Immature Gran % (Auto) 0.800, Neut % (Auto) 77.6 H, Lymph % (Auto) 12.5 L, [place] % (Auto) 8.9, Eos % (Auto) 0.0, Baso % (Auto) 0.2, Absolute Neuts (auto) 5.0, Absolute Lymphs (auto) 0.80 L, Nucleated RBC % 0, Differential Comment SCANNED, Polychromasia RARE, Anisocytosis 2+, Microcytosis 1+ 11/24/21 06:20: Sodium 138, Potassium 3.3 L, Chloride 103, Carbon Dioxide 29.0, Anion Gap 6, BUN 13, Creatinine 0.60, Estim Creat Clear Calc 82.87, Est GFR (MDRD) Af Amer 130, Est GFR (MDRD) Non-Af 108, BUN/Creatinine Ratio 21.8 H, Glucose 134 H, Calcium 8.9 Micro: Microbiology 11/23/21 11:40 Nasal Secretion SARS-CoV-2 & FLU Antigen (Rapid) - Final 11/23/21 11:20 Urine, Random Legionella Antigen - Final 11/23/21 11:20 Urine, Random Streptococcus pneumoniae Antigen (M - Final 11/22/21 15:49 Urine, Clean Catch Urine Culture - Preliminary GNR 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 Numerous/extensive small to moderate size rounded metastatic lesions are scattered throughout the bilateral cerebral hemispheres, thalamic lobes, the right side of the midbrain, and throughout both the left and right cerebellar lobes. 2. A mildly hemorrhagic metastatic tumor is present in the posterior superior aspect of the left parietal lobe measuring 2.0 x 1.17 cm. 3. The metastatic lesions of the brain parenchyma extends to the apex of the skull. These lesions diffusely enhance on the postcontrast portion of the study. Electronically Signed: Dangelo De La Torre MD at 11:55 EDT Reading Location ID and State: [address] [place] [address] , Service support , ADDENDUM: 11/23/21 1822 IMPRESSION: undefined Physical Exam Const alert and no apparent distress Resp normal respiratory effort, no retractions, no use of accessory muscles and clear to auscultation bilaterally Cardio regular rate, regular rhythm, S1 normal heart sound and S2 normal heart sound GI normal to inspection, nondistended, normoactive bowel sounds and soft to palpation Extremity normal to inspection Assessment & Plan Assessment/Plan (1) Infectious encephalopathy: (2) Urinary tract infection: (3) Right middle lobe pneumonia: (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 acute metabolic encephalopathy * improved * 2/2 metastatic lesions. possibly complicated by PNA, doubt UTI, and post concussion syndrome. * DC potentiating medications * alprazolam and oxycodone ordered on admission, will DC * reviewed OARRS, no recent Rx since July 2. UTI * unlikely * UA rather benign in appearance * follow up cultures 3. 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 SCLC * stage IV * w brain mets * DW Dr. Osman, plan for WB XRT. Likely to start 11/25 * MRI brain 11/23/2021: * 1. Numerous/extensive small to moderate size rounded metastatic lesions are scattered throughout the bilateral cerebral hemispheres, thalamic lobes, the right side of the midbrain, and throughout both the left and right cerebellar lobes. * 2. A mildly hemorrhagic metastatic tumor is present in the posterior superior aspect of the left parietal lobe measuring 2.0 x 1.17 cm. * 3. The metastatic lesions of the brain parenchyma extends to the apex of the skull. These lesions diffusely enhance on the postcontrast portion of the study. * DW the radiologist, who said the parietal hemorrhage is unchanged from October * MRI Brain 11/01/2021: * 1. Numerous small and punctate foci of enhancement throughout the supratentorial and infratentorial brain parenchyma associated with mild diffusion hyperintensity and a few of them associated microhemorrhages. Findings may relate to embolic subacute infarcts and/or hemorrhagic meta static disease. No significant mass effect. Recommend follow-up evaluation with contrast-enhanced MRI brain in 5-6 weeks. * 2. Small early subacute left parietal lobe parenchymal hematoma with associated central and peripheral enhancement and mild surrounding vasogenic edema. Apparent enhancement may relate to contrast leakage/extravasation and/or enhancement surrounding subacute hematoma. Considerations would include underlying metastatic disease. Attention on follow-up is recommended. Additional small acute 5 mm parenchymal hematoma in the medial left parietal lobe. * 3. Multiple foci of microhemorrhages throughout the supratentorial and infratentorial brain parenchyma, many of which are not associated with the enhancing foci and appears new from January 25, 2021. Findings are nonspecif ic but may relate to sequela of embolic disease among other considerations. 5. Macrocytic anemia * Hg 6.9 * transfuse 1 unit * monitor 6. Hypokalemia * replace * check magnesium 7. VTE prophylaxis: SCDs 8. DM2 * fair control * on glargine and SSI DW family at bedside. Charges/Coding Visit Charges Inpatient E&M: 65442 Subs Hosp L2
[2021-11-24] MEDS: Lisinopril 10 MG Tablet PO (09:27)
[2021-11-24] MEDS: FLUoxetine 20 MG Capsule 60 MG PO (09:27)
[2021-11-24] MEDS: Sodium Chloride 1 GM Tablet PO (09:28)
[2021-11-24] MEDS: Furosemide 40 MG Tablet PO (09:28)
[2021-11-24] MEDS: Pantoprazole Sodium 40 MG Tablet PO (09:28)
[2021-11-24] MEDS: Memantine Hydrochloride 5 MG Tablet PO (09:28)
[2021-11-24] MEDS: Metoprolol Tartrate 50 MG Tablet PO ×2 (09:28→21:40)
[2021-11-24] MEDS: Potassium Chloride Oral Tablet 20 MEQ 40 MEQ PO (09:28)
[2021-11-24] MEDS: Vancomycin IV 1,000 MG/200 ML BAG 200 MG IV ×2 (09:35→20:29)
[2021-11-24] MEDS: dexAMETHasone 4 MG/ML Vial IV ×2 (09:40→21:40)
[2021-11-24 09:56] LABS: Bedside Glucose 117 mg/dL (74-106)
--- NOTE | 2021-11-24 11:45 | CASEMGMT ---
Social Work PCU Reason for intervention: Advanced Directive follow up. Met with patient and daughter Harriet today. Patient awake, alert and willing to have discussion about advanced directives. Explored with patient her wishes to redo POAHC and Living Will. Patient talked about Harriet being the only person who is up to making hard decisions for the patient. Explored what this meant to patient, and patient was able to discuss wishes for after , how to be memorialized within the family, as well as the topics of CPR and ventilation. Patient shared that wants to have CPR at this point, but is also okay with stopping after a reasonable time, which Harriet would talk over with the doctor. Patient shared she does not want to be on a ventilator, due to not wanting to be on a machine or to have grandchildren have this as the last memory of the patient. Patient and Harriet both discussed that patient wants to try for cancer treatment, but that quality of life is important too. Harriet did jump in and answer some questions, but overall did respect patient and allow patient opportunity to talk. Patient and Ahrriet appeared relaxed with each other, patient smiled at appropriate times, and observed patient and daughter to use humor with each other. Patient spontaneously shared that patient's partner, Austin, of 17 years told patient in the last week or two that does not feel able to be strong enough to follow patient's wishes. Patient indicated that would not want to have Austin do something he does not feel up to doing. Harriet shared, that for some time now, Austin would call Harriet when at doctors appointments so that Harriet could hear the information and help patient and Austin. During conversation, patient spoke of Harriet being the patients ride or and to believe that Harriet understands patient and patient's wishes. This field underwriter spoke with patient 1:1 as well, to ensure that patient's responses were consistent without Harriet present. Thoughts expressed remained consistent. Patient alert and oriented to person, place, year, month, president, and situation. Off on day of the month. Offered to keep same advanced directives in place with Austin indicating to health care team his desire to step down, or to redo directives. Patient reported desire to redo directives so that information is clear for the medical team, with no questions on decision making. Completed POAHC and Living Will. Copy made for medical chart, as well as extra copies for individuals indicated on the Advanced Directives. -LOLY Leal, CUTTING AND SPLICING SUPERVISOR
[2021-11-24 11:55] LABS: Bedside Glucose 160 mg/dL (74-106)
[2021-11-24] MEDS: Insulin Lispro 100 UNIT/ML INSULN.PEN 12 UNIT SC ×2 (12:21→16:41)
[2021-11-24] MEDS: Insulin Glargine-YFGN 100 UNIT/ML Pen 20 UNIT SC (12:21)
[2021-11-24] MEDS: Insulin Lispro 100 UNIT/ML INSULN.PEN SC ×3 (12:22→21:47)
--- NOTE | 2021-11-24 12:35 | CASEMGMT ---
SW met with patient as SW was informed patient is interested in going to a alf for rehab. SW met with patient and her daughter was also present. SW confirmed with patient that she is looking to go somewhere for rehab. Patient said, No. Patient's daughter told patient we talked about assisted living remember. SW explained we do not normally send people to assisted living from the hospital unless it was arranged prior to patient's hospitalization. One big reason is the rooms do not come furnished. Also, going to assisted living on Medicaid requires and assessment and paperwork that would not be able to be completed while in the hospital. SW provided a list of SNF providers including quality and resource use data and consistent with the patient?s preferred geographic region, medical needs, and insurance network.offered to leave the list of facilities and patient's daughter did take the list. SW notified them that the facilities that are highlighted in pink are the ones that take patient's insurance. NIESHA and RN NINA will follow. Karen Manning CIRCUIT BREAKER SUPERVISOR SOFIYA
[2021-11-24] MEDS: Acetaminophen 325 MG Tablet 650 MG PO (14:09)
[2021-11-24 17:01] LABS: Bedside Glucose 158 mg/dL (74-106)
--- NOTE | 2021-11-24 17:39 | CASEMGMT ---
Social Work PCU Reason for Intervention: family discussion; Advanced directives Received call from RN CM that member of technical staff shared that patient's son visiting, and upset about the new advanced directives. Presented to patient's room and found patient and son Bradley Gonzalez in the room. Checked in on how things were going and if either had any questions or concerns that may want to talk about. Bradley indicated no concerns. This video game script writer broached reports about Bradley being upset about the advanced directives, to which Bradley acknowledged this, voicing that patient's daughter Harriet lives out of state. Bradley concerned that if patient is in a prison, then won't be able to do anything, due to Harriet being the POAHC. Bradley discussed not wanting to see the patient neglected and that Bradley has been around helping the patient. Acknowledged to Bradley that this is a difficult situation, with hard news and changes coming in a short amount of time. Acknowledged Bradley's concerns, and offered support while helping to reframe situation. Explored whether Bradley was aware of POAHC being done previously, to which Bradley was not. Educated Bradley that all of the same parties are listed, including Bradley, but a different order. Educated that should patient go to a prison, the prison can be informed that Bradley can be kept apprised, as well as that Bradley would be contacted for help if other parties are unable to do so. Patient acknowledged that Bradley has been around and helping, but also voiced that doesn't believe Bradley fully understands the decisions that will need to be made or the care that patient is going to need. This video game script writer observed patient and Bradley to also use humor with one another, much like patient and Harriet earlier today. 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 Patient talked of her love of learning, of college, and that it took five years but was able to get a social work degree. Patient reminisced about her relationship with Austin for the last 17 years, about about two other sons. Provided supportive listening, reflection, and gently touched on the grieving process in relation to chronic illness. Patient's daughter arrived back to the room. Daughter expressed that emotions are high right now in the family, so to this video game script writer is appearing to have some insight into Bradley's voiced frustrations. Family has been given copies of the advanced directives, as well as the original. Note, during conversation the patient was alert, oriented, engaged in conversation with appropriate and logical responses. No other services requested at this time regarding advanced directives. SW remains involved however should SNF be pursued. -GOYO Leal, CD REACTOR OPERATOR HEAD
[2021-11-24] MEDS: Atorvastatin Calcium 40 MG Tablet PO (21:39)
[2021-11-24] MEDS: cycloBENZAPRine HCl 5 MG TABLET PO (21:40)
[2021-11-24 22:36] LABS: Bedside Glucose 162 mg/dL (74-106)
[2021-11-25] VITALS (13 sets, daily range): BP systolic 111–139; BP diastolic 65–84; PULSE 70–82; RESP 14–20; TEMP 36.5–36.8; O2SAT 92–100
[2021-11-25] MEDS: busPIRone 15 MG TABLET 7.5 MG PO ×3 (05:13→20:56)
[2021-11-25] MEDS: Acetaminophen 325 MG Tablet 650 MG PO ×3 (05:13→20:30)
[2021-11-25] MEDS: Albuterol 2.5 MG/3 ML VIAL.NEB. INHALATION ×2 (07:21→19:11)
[2021-11-25] MEDS: Budesonide Respules 0.5 MG/2 ML AMPUL.NEB. INHALATION ×2 (07:21→19:11)
--- NOTE | 2021-11-25 08:15 | PN.HOSP_ITS ---
Subjective Subjective Still with headache, now involving her forehead. Complains of right ear pain that began after her fall (this is the first time that I and her daughter heard this). Objective Data Objective Data Vital Signs: Vital Signs Temp Pulse Resp BP Pulse Ox 36.8 C 70 14 139/70 H 92 11/25/21 03:30 11/25/21 07:00 11/25/21 03:30 11/25/21 03:30 11/25/21 03:30 Oxygen Flow Rate (L/min) 3 Oxygen Delivery Method Nasal Cannula Weight: 67.1 kg Body Mass Index (BMI) 25.4 Intake & Output: Intake and Output for Last 24 Hours 11/23/21 11/24/21 11/25/21 23:59 23:59 23:59 Intake Total 2764.58 / 2764.58 1150 / 1390 390 / 390 Output Total 850 / 850 2 / 2 Balance 2764.58 / 2514.58 300 / 540 388 / 388 Medical Nutrition Assessment Dietitian: Malnutrition Criteria Met Start: 11/24/21 17:29 Freq: Status: Active Protocol: Document 11/24/21 17:29 AG (Rec: 11/24/21 17:29 [id number]) Nutrition Malnutrition Evidence of Malnutrition Exists Yes Malnutrition (severe): Chronic Evidenced By Suboptimal Energy Intake ( Severe),Weight Loss (Severe) Clinical Problem Chronic Disease or Condition Related Malnutrition Etiology severe, chronic malnutrition r /t inadequate energy intake w/ increased energy needs d/t metastatic disease Signs/Symptoms as evidenced by estimated PO intake meeting <75% of estimated energy needs >3 months; unintentional wt loss of 56.1#/27.5% over past 1 year Status Active Problem Recommendation Dietitian Recommendations/Changes will change diet to regular given malnutrition; will offer 120mL ensure enlive 4x/day w/ medpass and 1 scoop beneprotein w/ meals for additional nutrition if consumed Lab / Micro Data Result Diagrams: 11/24/21 06:20 11/24/21 06:20 Labs: Laboratory Results - last 24 hr 11/24/21 09:18: POC Glucose 117 H 11/24/21 11:36: POC Glucose 160 H 11/24/21 16:40: POC Glucose 158 H 11/24/21 21:45: POC Glucose 162 H Micro: Microbiology 11/22/21 15:49 Urine, Clean Catch Urine Culture - Final Raoultella planticola 11/23/21 11:40 Nasal Secretion SARS-CoV-2 & FLU Antigen (Rapid) - Final 11/23/21 11:20 Urine, Random Legionella Antigen - Final 11/23/21 11:20 Urine, Random Streptococcus pneumoniae Antigen (M - Final Physical Exam Const alert and no apparent distress HEENT head/scalp atraumatic HEENT Narrative: Right tympanic membrane without effusion or erythema. Left tympanic membrane could not visualize due to wax buildup. 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 acute metabolic encephalopathy * improved * 2/2 metastatic lesions. possibly complicated by PNA, doubt UTI, and post concussion syndrome. * DC potentiating medications * alprazolam and oxycodone ordered on admission, will DC * reviewed OARRS, no recent Rx since July 21. UTI * unlikely * UA rather benign in appearance * follow up cultures 3. 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 SCLC * stage IV * w brain mets * DW Dr. Osman, plan for WB XRT. Likely to start 11/25 * MRI brain 11/23/2021: * 1. Numerous/extensive small to moderate size rounded metastatic lesions are scattered throughout the bilateral cerebral hemispheres, thalamic lobes, the right side of the midbrain, and throughout both the left and right cerebellar lobes. * 2. A mildly hemorrhagic metastatic tumor is present in the posterior superior aspect of the left parietal lobe measuring 2.0 x 1.17 cm. * 3. The metastatic lesions of the brain parenchyma extends to the apex of the skull. These lesions diffusely enhance on the postcontrast portion of the study. * DW the radiologist, who said the parietal hemorrhage is unchanged from October * MRI Brain 11/01/2021: * 1. Numerous small and punctate foci of enhancement throughout the supratentorial and infratentorial brain parenchyma associated with mild diffusion hyperintensity and a few of them associated microhemorrhages. Findings may relate to embolic subacute infarcts and/or hemorrhagic metastatic disease. No significant mass effect. Recommend follow-up evaluation with contrast-enhanced MRI brain in 5-6 weeks. * 2. Small early subacute left parietal lobe parenchymal hematoma with associated central and peripheral enhancement and mild surrounding vasogenic edema. Apparent enhancement may relate to contrast le akage/extravasation and/or enhancement surrounding subacute hematoma. Considerations would include underlying metastatic disease. Attention on follow-up is recommended. Additional small acute 5 mm parenchymal hematoma in the medial left parietal lobe. * 3. Multiple foci of microhemorrhages throughout the supratentorial and infratentorial brain parenchyma, many of which are not associated with the enhancing foci and appears new from January 25, 2021. Findings are nonspecific but may relate to sequela of embolic disease among other considerations. 5. Macrocytic anemia * transfused 1 unit * monitor 6. Hypokalemia * replace * check magnesium 7. VTE prophylaxis: SCDs 8. DM2 * fair control * on glargine and SSI 9. Headache * could be migraine v brain mets v other * already on steroids. * avoid triptans, NSAIDs given h/o ICH * add compazine Charges/Coding Visit Charges Inpatient E&M: 51038 Subs Hosp L2
[2021-11-25] MEDS: cycloBENZAPRine HCl 5 MG TABLET PO ×2 (08:26→20:30)
[2021-11-25] MEDS: Vancomycin IV 1,000 MG/200 ML BAG 200 MG IV ×2 (08:26→20:30)
[2021-11-25] MEDS: Potassium Chloride Oral Tablet 20 MEQ 40 MEQ PO (08:26)
[2021-11-25] MEDS: guaiFENesin 10 ML UDC (200MG/10ML) 20 ML PO ×3 (08:26→20:30)
[2021-11-25 08:41] LABS: Bedside Glucose 120 mg/dL (74-106)
--- NOTE | 2021-11-25 09:33 | CASEMGMT ---
SW had a note to talk with patient and her daughter about SNF. SW met with patient and her daughter. Discussed how the SNF process works. Their first choice would be [facility] in [place]. Patient's son lives in [place] and he will be transporting her most of her appointments. Also, patient used to work there when it was [employer]. SW faxed referral and also e-mailed Sofiya letting her know about referral. Await response. Karen Manning GARDEN CONSULTANT SOFIYA
[2021-11-25] MEDS: Lisinopril 10 MG Tablet PO (09:45)
[2021-11-25] MEDS: Sodium Chloride 1 GM Tablet PO (09:45)
[2021-11-25] MEDS: Pantoprazole Sodium 40 MG Tablet PO (09:46)
[2021-11-25] MEDS: Memantine Hydrochloride 5 MG Tablet PO (09:46)
[2021-11-25] MEDS: Furosemide 40 MG Tablet PO (09:46)
[2021-11-25] MEDS: Metoprolol Tartrate 50 MG Tablet PO ×2 (09:46→20:56)
[2021-11-25] MEDS: FLUoxetine 20 MG Capsule 60 MG PO (09:46)
[2021-11-25] MEDS: dexAMETHasone 4 MG/ML Vial IV ×2 (09:51→20:57)
--- NOTE | 2021-11-25 10:55 | CASEMGMT ---
NIESHA received an e-mail from Sofiya at [facility]. Sofiya requested NIESHA note indicating patient's son will transport patient to and from her radiation. Sofiya also asked how long patient will be on IV antibiotics. NIESHA spoke with physician and patient will not be on IV antibiotics at discharge. NIESHA will talk with patient's son directly to verify he will transport. Karen ARRIAZA
--- NOTE | 2021-11-25 11:26 | CASEMGMT ---
NIESHA spoke with patient's son and he confirmed he will transport patient back and forth to her radiation. Sofiya at [place] sent an e-mail requesting NIESHA note that indicates patient's son will transport patient to and from radiation. Sofiya also asked how long patient will be on IV abx. NIESHA sent NIESHA's note regarding discussion with son and transportation. After speaking with physician NIESHA also let Sofiya know patient will not be on IV antibiotics at discharge. Karen ARRIAZA
--- NOTE | 2021-11-25 11:35 | CASEMGMT ---
NIESHA called patient's son Bradley ([phone]) and he confirmed he will transport patient to and from her radiation appointments. Karen Manning DISTRIBUTION WAREHOUSE MANAGER SOFIYA
[2021-11-25 11:45] LABS: Bedside Glucose 138 mg/dL (74-106)
--- NOTE | 2021-11-25 11:46 | CASEMGMT ---
NIESHA e-mailed NIESHA's note regarding SW's conversation with patient's son. NIESHA also let Sofiya know patient will not be discharged on IV antibiotics. Karen ARRIAZA
[2021-11-25] MEDS: 0.9% Saline Lock 10 ML Syringe IV ×2 (13:29→20:57)
--- NOTE | 2021-11-25 14:40 | CASEMGMT ---
NIESHA has not heard from [facility] yet. NIESHA e-mailed Sofiya inquiring if they are able to accept patient. Await response. Karen Manning SERVICE DEVELOPER SOFIYA
[2021-11-25 17:06] LABS: Bedside Glucose 167 mg/dL (74-106)
[2021-11-25] MEDS: Insulin Lispro 100 UNIT/ML INSULN.PEN 12 UNIT SC (18:03)
[2021-11-25] MEDS: Insulin Lispro 100 UNIT/ML INSULN.PEN SC (18:03)
[2021-11-25 19:57] LABS: Vancomycin, Trough Level 19.4 ug/mL (5.0-15.0)
--- NOTE | 2021-11-25 20:47 | PCM.RX.CS ---
Consult Pharmacy has been consulted to manage selected antiobiotic: Vancomycin Type of Consult: Follow-up Suspected Infection: Pneumonia Prior Doses of Antibiotics Received/Current Regimen: Currently on 1gm iv q12h. Labs: Sodium 138 mmol/L (136-145) 11/24/21 06:20 Potassium 3.3 mmol/L (3.5-5.1) L 11/24/21 06:20 Chloride 103 mmol/L (98-107) 11/24/21 06:20 Carbon Dioxide 29.0 mmol/L (21.0-32.0) 11/24/21 06:20 Anion Gap 6 (5-15) 11/24/21 06:20 BUN 13 mg/dL (7-18) 11/24/21 06:20 Creatinine 0.60 mg/dL (0.55-1.02) 11/24/21 06:20 Est GFR (MDRD) Af Amer 130 mL/min (>60) 11/24/21 06:20 Est GFR (MDRD) Non-Af 108 mL/min (>60) 11/24/21 06:20 BUN/Creatinine Ratio 21.8 RATIO (10-20) H 11/24/21 06:20 Glucose 134 mg/dL (74-106) H 11/24/21 06:20 Vancomycin Trough 19.4 ug/mL (5.0-15.0) H 11/25/21 19:25 Microbiology: Microbiology 11/22/21 18:05 Blood Culture (Wb) - Left Forearm Blood Culture - Preliminary No growth in 48 hours. 11/22/21 18:00 Blood Culture (Wb) - Port Blood Culture - Preliminary No growth in 48 hours. 11/22/21 15:49 Urine, Clean Catch Urine Culture - Final Raoultella planticola 11/23/21 11:40 Nasal Secretion SARS-CoV-2 & FLU Antigen (Rapid) - Final 11/23/21 11:20 Urine, Random Legionella Antigen - Final 11/23/21 11:20 Urine, Random Streptococcus pneumoniae Antigen (M - Final Weight used for dosin.1 kg Estimated Creatinine Clearance: 83ml/min Goal Trough: 15-20 mcg/mL Pharmacy Plan for Drug Dosing: Trough today after 3 doses of 1Gm was 19.4 and in desired range of 15-20mcg/ml. No new renal values reported. Will continue same dose and monitor with new trough level after 3 more doses per policy. Pharmacy Service will continue to monitor and adjust dosing as required. Follow-Up Labs: Trough Vancomycin - 6.11.22@0730 before 0800 dose
[2021-11-25] MEDS: Atorvastatin Calcium 40 MG Tablet PO (20:56)
[2021-11-25 22:10] LABS: Bedside Glucose 136 mg/dL (74-106)
[2021-11-26] VITALS (14 sets, daily range): BP systolic 118–145; BP diastolic 59–80; PULSE 71–83; RESP 16–20; TEMP 36.5–37.1; O2SAT 97–100
[2021-11-26 06:15] LABS: Absolute Lymphocyte Count 1.48 X10^3/uL (0.83-4.51); Absolute Neutrophil Count 5.3 X10^3/uL (2.0-7.7); Basophil# 0.02 X10^3/uL; Basophil% 0.3 % (0-1); Eosinophil# 0.01 X10^3/uL; Eosinophils% 0.1 % (0-5); Hemoglobin 9.7 g/dL (12.0-15.0); Lymphocyte # 1.48 X10^3/ul (0.83-4.51); Lymphocyte % 18.8 % (19-41); Mean Corp Hgb Conc 33.4 g/dL (32-36); Mean Corpuscular Hgb 32.7 pg (27.0-32.0); Mean Corpuscular Volume 97.6 fL (81-99); Mean Platelet Vol. 8.9 fl (6.2-12.0); Monocyte# 1.01 X10^3/uL; Monocyte% 12.8 % (0-10); NRBC Flagged by Analyzer 0 % (0-5); Neutrophil # 5.29 X10^3/uL (2.7-7.7); Neutrophil % 67.1 % (47-70); POSITIVE MORPHOLOGY YES; Platelet Count 239 K/mm3 (150-450); RBC Distribution Width CV 18.8 % (11.6-14.6); RBC Distribution Width SD 67.1 fl (35.1-43.9); Red Blood Count 2.97 M/mm3 (4.2-5.4); White Blood Count 7.9 K/mm3 (4.4-11.0)
[2021-11-26 06:21] LABS: Differential Indicated SCAN CRITERIA MET
[2021-11-26 06:35] LABS: Differential Comment SCANNED; Ovalocyte RARE; Polychromasia RARE
[2021-11-26] MEDS: busPIRone 15 MG TABLET 7.5 MG PO ×3 (06:35→22:01)
[2021-11-26 06:36] LABS: Anisocytosis 2+; Macrocytosis 1+; Microcytosis 1+
[2021-11-26 06:46] LABS: Bedside Glucose 118 mg/dL (74-106)
[2021-11-26] MEDS: Albuterol 2.5 MG/3 ML VIAL.NEB. INHALATION ×3 (06:50→18:29)
[2021-11-26] MEDS: Budesonide Respules 0.5 MG/2 ML AMPUL.NEB. INHALATION ×2 (06:50→18:30)
[2021-11-26 07:07] LABS: Anion Gap 5 (5-15); BUN 16 mg/dL (7-18); BUN/Creat Ratio 21.7 RATIO (10-20); Calcium,Total 8.9 mg/dL (8.5-10.1); Chloride 99 mmol/L (98-107); Creatinine, Serum 0.74 mg/dL (0.55-1.02); EST Glomerular Filtration Rate 85 mL/min (>60); Est Glom Filt Rate - Afr Amer 102 mL/min (>60); Estimated Creatinine Clearance 67.19 ml/min; Glucose 122 mg/dL (74-106); Potassium 2.9 mmol/L (3.5-5.1); Sodium Level 137 mmol/L (136-145)
--- NOTE | 2021-11-26 08:00 | PN.HOSP_ITS ---
Subjective Subjective Feels better. Objective Data Objective Data Vital Signs: Vital Signs Temp Pulse Resp BP Pulse Ox 36.8 C 78 19 H 145/67 H 98 11/26/21 03:09 11/26/21 06:50 11/26/21 06:50 11/26/21 03:09 11/26/21 06:50 Oxygen Flow Rate (L/min) 3 Oxygen Delivery Method Nasal Cannula Weight: 67.1 kg Body Mass Index (BMI) 25.4 Intake & Output: Intake and Output for Last 24 Hours 11/24/21 11/25/21 11/26/21 23:59 23:59 23:59 Intake Total 1150 / 1390 1610 / 1610 50 / 50 Output Total 850 / 850 2 / 2 0 / 0 Balance 300 / 540 1608 / 1608 50 / 50 Medical Nutrition Assessment Dietitian: Malnutrition Criteria Met Start: 11/24/21 17:29 Freq: Status: Active Protocol: Document 11/24/21 17:29 (Rec: 11/24/21 17:29 [id number]) Nutrition Malnutrition Evidence of Malnutrition Exists Yes Malnutrition (severe): Chronic Evidenced By Suboptimal Energy Intake ( Severe),Weight Loss (Severe) Clinical Problem Chronic Disease or Condition Related Malnutrition Etiology severe, chronic malnutrition r /t inadequate energy intake w/ increased energy needs d/t metastatic disease Signs/Symptoms as evidenced by estimated PO intake meeting <75% of estimated energy needs >3 months; unintentional wt loss of 56.1#/27.5% over past 1 year Status Active Problem Recommendation Dietitian Recommendations/Changes will change diet to regular given malnutrition; will offer 120mL ensure enlive 4x/day w/ medpass and 1 scoop beneprotein w/ meals for additional nutrition if consumed Lab / Micro Data Result Diagrams: 11/26/21 06:09 11/26/21 06:09 Labs: Laboratory Results - last 24 hr 11/25/21 08:17: POC Glucose 120 H 11/25/21 11:37: POC Glucose 138 H 11/25/21 16:58: POC Glucose 167 H 11/25/21 19:25: Vancomycin Trough 19.4 H 11/25/21 20:50: POC Glucose 136 H 11/26/21 06:09: WBC 7.9, RBC 2.97 L, Hgb 9.7 L, Hct 29.0 L, MCV 97.6, MCH 32.7 H , MCHC 33.4, RDW Std Deviation 67.1 H, RDW Coeff of [place] 18.8 H, Plt Count 239, MPV 8.9, Immature Gran % (Auto) 0.900, Neut % (Auto) 67.1, Lymph % (Auto) 18.8 L , [place] % (Auto) 12.8 H, Eos % (Auto) 0.1, Baso % (Auto) 0.3, Absolute Neuts (auto) 5.3, Absolute Lymphs (auto) 1.48, Nucleated RBC % 0, Differential Comment SCANNED, Polychromasia RARE, Anisocytosis 2+, Microcytosis 1+, Macrocytosis 1+, Ovalocytes RARE 11/26/21 06:09: Sodium 137, Potassium 2.9 L, Chloride 99, Carbon Dioxide 33.0 H, Anion Gap 5, BUN 16, Creatinine 0.74, Estim Creat Clear Calc 67.19, Est GFR (MDRD) Af Amer 102, Est GFR (MDRD) Non-Af 85, BUN/Creatinine Ratio 21.7 H, Glucose 122 H, Calcium 8.9 11/26/21 06:31: POC Glucose 118 H Micro: Microbiology 11/22/21 18:05 Blood Culture (Wb) - Left Forearm Blood Culture - Preliminary No growth in 48 hours. 11/22/21 18:00 Blood Culture (Wb) - Port Blood Culture - Preliminary No growth in 48 hours. 11/22/21 15:49 Urine, Clean Catch Urine Culture - Final Raoultella planticola 11/23/21 11:40 Nasal Secretion SARS-CoV-2 & FLU Antigen (Rapid) - Final 11/23/21 11:20 Urine, Random Legionella Antigen - Final 11/23/21 11:20 Urine, Random Streptococcus pneumoniae Antigen (M - Final Physical Exam Const alert and no apparent distress Resp normal respiratory effort, no retractions, no use of accessory muscles and clear to auscultation bilaterally Cardio regular rate, regular rhythm, S1 normal heart sound and S2 normal heart sound GI normal to inspection, nondistended, normoactive bowel sounds, soft to palpation, non-tender and non-distended Extremity normal to inspection Assessment & Plan Assessment/Plan (1) Infectious encephalopathy: (2) Urinary tract infection: (3) Right middle lobe pneumonia: (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 acute metabolic encephalopathy * improved * 2/2 metastatic lesions. possibly complicated by PNA, doubt UTI, and post concussion syndrome. * DC potentiating medications * alprazolam and oxycodone ordered on admission, will DC * reviewed OARRS, no recent Rx since July 21. UTI * I am doubtful that this is a true infection, but given steroids and other comorbidities, I would continue to treat * UA rather benign in appearance * Culture showing Raoultella planticola >100k cfu * Nitrofurantoin for 3 more days 3. 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 Osman, plan for WB XRT. Likely to start 11/25 * MRI brain 11/23/2021: * 1. Numerous/extensive small to moderate size rounded metastatic lesions are scattered throughout the bilateral cerebral hemispheres, thalamic lobes, the right side of the midbrain, and throughout both the left and right cerebellar lobes. * 2. A mildly hemorrhagic metastatic tumor is present in the posterior superior aspect of the left parietal lobe measuring 2.0 x 1.17 cm. * 3. The metastatic lesions of the brain parenchyma extends to the apex of the skull. These lesions diffusely enhance on the postcontrast portion of the study. * DW the radiologist, who said the parietal hemorrhage is unchanged from October * MRI Brain 11/01/2021: * 1. Numerous small and punctate foci of enhancement throughout the supratentorial and infratentorial brain parenchyma associated with mild diffusion hyperintensity and a few of them associated microhemorrhages. Findings may relate to embolic subacute infarcts and/or hemorrhagic metastatic disease. No significant mass effect. Recommend follow-up evaluation with contrast-enhanced MRI brain in 5-6 weeks. * 2. Small early subacute left parietal lobe parenchymal hematoma with associated central and peripheral enhancement and mild surrounding vasogenic edema. Apparent enhancement may relate to contrast leakage/extravasation and/or enhancement surrounding subacute hematoma. Considerations would include underlying metastatic disease. Attention on follow-up is recommended. Additional small acute 5 mm parenchymal hematoma in the medial left parietal lobe. * 3. Multiple foci of microhemorrhages throughout the supratentorial and infratentorial brain parenchyma, many of which are not associated with the enhancing foci and appears new from January 25, 2021. Findings are nonspecific but may relate to sequela of embolic disease among other considerations. 5. Macrocytic anemia * transfused 1 unit * monitor 6. Hypokalemia * replace * check magnesium 7. VTE prophylaxis: SCDs 8. DM2 * fair control * on glargine and SSI 9. Headache * improved * could be migraine v brain mets v other * already on steroids. * avoid triptans, NSAIDs given h/o ICH * add compazine 10. Debility: plan for SNF. awaiting on authorization. ITZ Dtr at bedside Charges/Coding Visit Charges Inpatient E&M: 12594 Subs Hosp L2
[2021-11-26] MEDS: guaiFENesin 10 ML UDC (200MG/10ML) 20 ML PO ×2 (08:37→13:58)
[2021-11-26] MEDS: Potassium Chloride Oral Tablet 20 MEQ 40 MEQ PO (08:38)
[2021-11-26] MEDS: dexAMETHasone 4 MG/ML Vial IV ×2 (08:39→22:02)
[2021-11-26] MEDS: FLUoxetine 20 MG Capsule 60 MG PO (08:39)
[2021-11-26] MEDS: Sodium Chloride 1 GM Tablet PO (08:39)
[2021-11-26] MEDS: Pantoprazole Sodium 40 MG Tablet PO (08:39)
[2021-11-26] MEDS: Furosemide 40 MG Tablet PO (08:39)
[2021-11-26] MEDS: Metoprolol Tartrate 50 MG Tablet PO ×2 (08:39→22:01)
[2021-11-26] MEDS: Memantine Hydrochloride 5 MG Tablet PO (08:39)
[2021-11-26] MEDS: Vancomycin IV 1,000 MG/200 ML BAG 200 MG IV (08:40)
[2021-11-26] MEDS: Lisinopril 10 MG Tablet PO (08:40)
[2021-11-26] MEDS: 0.9% Saline Lock 10 ML Syringe IV ×2 (08:40→14:03)
[2021-11-26] MEDS: Acetaminophen 325 MG Tablet 650 MG PO ×2 (09:35→20:27)
--- NOTE | 2021-11-26 10:28 | CASEMGMT ---
NIESHA has e-mailed and called Sofiya at [facility] again inquiring if they are able to take patient. NIESHA will continue to try and reach someone at [facility]. Karen ARRIAZA
--- NOTE | 2021-11-26 10:32 | CASEMGMT ---
NIESHA called [facility] and spoke with Stacy. Stacy said that [facility] is not in and she will have to talk with her cyber security administrator about the referral. NIESHA gave her patient's name and NIESHA's return number. Stacy said she will talk with the cyber security administrator and get back to NIESHA. Karen Manning CROWN BLOCKER SOFIYA
[2021-11-26] MEDS: Insulin Lispro 100 UNIT/ML INSULN.PEN SC ×2 (10:57→16:16)
[2021-11-26 11:21] LABS: Bedside Glucose 153 mg/dL (74-106)
--- NOTE | 2021-11-26 12:30 | CASEMGMT ---
NIESHA received an e-mail from Roslyn at [facility]. They can take patient and will start the pre-cert. They asked for updated therapy notes. Unfortunately patient did not have therapy yesterday or today as patient was in radiation when they came by. SW spoke with therapy and asked that they see patient for insurance. SW met with patient and her daughter. SW explained that insurance is wanting to look at updated therapy notes. SW explained that therapy is going to come and see patient today and it is important patient works with them. SW explained therapy is largely what insurance looks at when approving or denying a patient for residential placement. Both verbalized understanding. SW updated Roslyn also. Plan: [facility] pending pre-cert. Karen ARRIAZA
[2021-11-26] MEDS: proCHLORPERazine 10 MG/2 ML Vial IV (13:58)
--- NOTE | 2021-11-26 16:08 | CASEMGMT ---
NIESHA e-mailed updated PT/OT notes to [facility]. Karen Manning SUPERVISOR TYPE DISK QUALITY CONTROL SOFIYA
[2021-11-26] MEDS: Nitrofurantoin Macrocrystals 100 MG Capsule PO (16:18)
[2021-11-26 16:31] LABS: Bedside Glucose 167 mg/dL (74-106)
[2021-11-26] MEDS: Atorvastatin Calcium 40 MG Tablet PO (22:01)
[2021-11-26 23:35] LABS: Bedside Glucose 131 mg/dL (74-106)
[2021-11-27] VITALS (13 sets, daily range): BP systolic 112–139; BP diastolic 63–78; PULSE 75–87; RESP 16–22; TEMP 36.2–36.9; O2SAT 95–100
[2021-11-27] MEDS: busPIRone 15 MG TABLET 7.5 MG PO ×3 (05:00→22:10)
[2021-11-27] MEDS: Acetaminophen 325 MG Tablet 650 MG PO ×3 (06:27→18:41)
[2021-11-27] MEDS: Albuterol 2.5 MG/3 ML VIAL.NEB. INHALATION ×3 (07:33→20:07)
[2021-11-27] MEDS: Budesonide Respules 0.5 MG/2 ML AMPUL.NEB. INHALATION ×2 (07:33→20:07)
[2021-11-27] MEDS: Potassium Chloride Oral Tablet 20 MEQ 40 MEQ PO (07:43)
[2021-11-27] MEDS: Nitrofurantoin Macrocrystals 100 MG Capsule PO ×2 (07:43→16:07)
[2021-11-27] MEDS: guaiFENesin 10 ML UDC (200MG/10ML) 20 ML PO ×3 (07:54→22:09)
[2021-11-27 07:56] LABS: Bedside Glucose 142 mg/dL (74-106)
--- NOTE | 2021-11-27 09:01 | PN.HOSP_ITS ---
Subjective Subjective Headaches gotten worse. Headache is started since initiating radiation. On further description patient is describing her headache is more preauricular more they are directing the radiation beam. It is reproducible and exquisitely tender. Acetaminophen has not been helping. Objective Data Objective Data Vital Signs: Vital Signs Temp Pulse Resp BP Pulse Ox 36.7 C 76 16 139/78 H 100 11/27/21 03:29 11/27/21 03:29 11/27/21 03:29 11/27/21 03:29 11/27/21 03:29 Oxygen Flow Rate (L/min) 3 Oxygen Delivery Method Nasal Cannula Weight: 67.1 kg Body Mass Index (BMI) 25.4 Intake & Output: Intake and Output for Last 24 Hours 11/25/21 11/26/21 11/27/21 23:59 23:59 23:59 Intake Total 1610 / 1610 900 / 1020 240 / 240 Output Total 2 / 2 0 / 0 Balance 1608 / 1608 900 / 1020 240 / 240 Medical Nutrition Assessment Dietitian: Malnutrition Criteria Met Start: 11/24/21 17:29 Freq: Status: Active Protocol: Document 11/24/21 17:29 (Rec: 11/24/21 17:29 [id number]) Nutrition Malnutrition Evidence of Malnutrition Exists Yes Malnutrition (severe): Chronic Evidenced By Suboptimal Energy Intake ( Severe),Weight Loss (Severe) Clinical Problem Chronic Disease or Condition Related Malnutrition Etiology severe, chronic malnutrition r /t inadequate energy intake w/ increased energy needs d/t metastatic disease Signs/Symptoms as evidenced by estimated PO intake meeting <75% of estimated energy needs >3 months; unintentional wt loss of 56.1#/27.5% over past 1 year Status Active Problem Recommendation Dietitian Recommendations/Changes will change diet to regular given malnutrition; will offer 120mL ensure enlive 4x/day w/ medpass and 1 scoop beneprotein w/ meals for additional nutrition if consumed Lab / Micro Data Result Diagrams: 11/26/21 06:09 11/26/21 06:09 Labs: Laboratory Results - last 24 hr 11/26/21 10:54: POC Glucose 153 H 11/26/21 16:05: POC Glucose 167 H 11/26/21 22:07: POC Glucose 131 H 11/27/21 07:39: POC Glucose 142 H Micro: Microbiology 11/22/21 18:05 Blood Culture (Wb) - Left Forearm Blood Culture - Preliminary No growth in 48 hours. 11/22/21 18:00 Blood Culture (Wb) - Port Blood Culture - Preliminary No growth in 48 hours. 11/22/21 15:49 Urine, Clean Catch Urine Culture - Final Raoultella planticola 11/23/21 11:40 Nasal Secretion SARS-CoV-2 & FLU Antigen (Rapid) - Final 11/23/21 11:20 Urine, Random Legionella Antigen - Final 11/23/21 11:20 Urine, Random Streptococcus pneumoniae Antigen (M - Final Physical Exam Const alert and no apparent distress HEENT HEENT Narrative: Tender to palpation at the forefront of her right ear as well as around the tissue anterior to her right ear. No temporal tenderness. 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 acute metabolic encephalopathy * improved * 2/2 metastatic lesions. possibly complicated by PNA, doubt UTI, and post concussion syndrome. * DC potentiating medications * alprazolam and oxycodone ordered on admission, will DC * reviewed OARRS, no recent Rx since July 21. UTI * I am doubtful that this is a true infection, but given steroids and other comorbidities, I would continue to treat * UA rather benign in appearance * Culture showing Raoultella planticola >100k cfu * Nitrofurantoin through the . 3. Pneumonia * ruled out * DC abx * check strep and legionella antigens * check COVID 19 and influenza 4. 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 * MRI brain 11/23/2021: * 1. Numerous/extensive small to moderate size rounded metastatic lesions are scattered throughout the bilateral cerebral hemispheres, thalamic lobes, the right side of the midbrain, and throughout both the left and right cerebellar lobes. * 2. A mildly hemorrhagic metastatic tumor is present in the posterior superior aspect of the left parietal lobe measuring 2.0 x 1.17 cm. * 3. The metastatic lesions of the brain parenchyma extends to the apex of the skull. These lesions diffusely enhance on the postcontrast portion of the study. * DW the radiologist, who said the parietal hemorrhage is unchanged from October * MRI Brain 11/01/2021: * 1. Numerous small and punctate foci of enhancement throughout the supratentorial and infratentorial brain parenchyma associated with mild diffusion hyperintensity and a few of them associated microhemorrhages. Findings may relate to embolic subacute infarcts and/or hemorrhagic metastatic disease. No significant mass effect. Recommend follow-up ev aluation with contrast-enhanced MRI brain in 5-6 weeks. * 2. Small early subacute left parietal lobe parenchymal hematoma with associated central and peripheral enhancement and mild surrounding vasog enic edema. Apparent enhancement may relate to contrast leakage/extravasation and/or enhancement surrounding subacute hematoma. Considerations would include underlying metastatic disease. Attention on follow-up is recommended. Additional small acute 5 mm parenchymal hematoma in the medial left parietal lobe. * 3. Multiple foci of microhemorrhages throughout the supratentorial and infratentorial brain parenchyma, many of which are not associated with the enhancing foci and appears new from January 25, 2021. Findings are nonspecific but may relate to sequela of embolic disease among other consid erations. 5. Macrocytic anemia * transfused 1 unit * stable 6. Hypokalemia * monitor 7. VTE prophylaxis: SCDs 8. DM2 * fair control * on glargine and SSI 9. Headache * improved * could be migraine v brain mets v other * already on steroids. * avoid triptans, NSAIDs given h/o ICH * add compazine * Patient's prior headache is overall improved but patient is now complaining of pain from the radiation site. This is not traditional headache but likely due to the radiation itself. It is reproducible and I will initiate patient on narcotics. We will start her on oral oxycodone but if that is refractory may consider IV narcotics for breakthrough. 10. Debility: plan for SNF. awaiting on authorization. Discussed with the patient's daughter at bedside. Charges/Coding Visit Charges Inpatient E&M: 39038 Subs Hosp L2
[2021-11-27] MEDS: Metoprolol Tartrate 50 MG Tablet PO ×2 (09:33→22:10)
[2021-11-27] MEDS: Memantine Hydrochloride 5 MG Tablet PO (09:33)
[2021-11-27] MEDS: Lisinopril 10 MG Tablet PO (09:33)
[2021-11-27] MEDS: Sodium Chloride 1 GM Tablet PO (09:33)
[2021-11-27] MEDS: Pantoprazole Sodium 40 MG Tablet PO (09:33)
[2021-11-27] MEDS: Insulin Glargine-YFGN 100 UNIT/ML Pen 20 UNIT SC (09:34)
[2021-11-27] MEDS: FLUoxetine 20 MG Capsule 60 MG PO (09:34)
[2021-11-27] MEDS: Furosemide 40 MG Tablet PO (09:34)
[2021-11-27] MEDS: 0.9% Saline Lock 10 ML Syringe IV ×2 (09:35→22:10)
[2021-11-27] MEDS: dexAMETHasone 4 MG/ML Vial IV ×2 (09:35→22:09)
[2021-11-27] MEDS: oxyCODONE 5 MG Tablet PO ×3 (10:44→22:10)
[2021-11-27 11:26] LABS: Bedside Glucose 174 mg/dL (74-106)
[2021-11-27 11:53] LABS: Anion Gap 6 (5-15); BUN 19 mg/dL (7-18); Calcium,Total 9.1 mg/dL (8.5-10.1); Chloride 97 mmol/L (98-107); Creatinine, Serum 0.76 mg/dL (0.55-1.02); EST Glomerular Filtration Rate 82 mL/min (>60); Est Glom Filt Rate - Afr Amer 99 mL/min (>60); Estimated Creatinine Clearance 65.43 ml/min; Glucose 167 mg/dL (74-106); Magnesium 1.4 mg/dL (1.6-2.6); Potassium 3.1 mmol/L (3.5-5.1); Sodium Level 135 mmol/L (136-145)
[2021-11-27] MEDS: Insulin Lispro 100 UNIT/ML INSULN.PEN 12 UNIT SC (12:35)
[2021-11-27] MEDS: Insulin Lispro 100 UNIT/ML INSULN.PEN SC ×3 (12:36→22:13)
[2021-11-27 16:51] LABS: Bedside Glucose 205 mg/dL (74-106)
[2021-11-27] MEDS: cycloBENZAPRine HCl 5 MG TABLET PO (22:10)
[2021-11-27] MEDS: Atorvastatin Calcium 40 MG Tablet PO (22:10)
[2021-11-27 22:26] LABS: Bedside Glucose 155 mg/dL (74-106)
[2021-11-28] VITALS (13 sets, daily range): BP systolic 97–129; BP diastolic 65–86; PULSE 67–86; RESP 15–20; TEMP 36.7–37; O2SAT 94–99
[2021-11-28] MEDS: busPIRone 15 MG TABLET 7.5 MG PO ×3 (05:28→21:27)
[2021-11-28] MEDS: guaiFENesin 10 ML UDC (200MG/10ML) 20 ML PO ×3 (05:32→21:45)
[2021-11-28 06:15] LABS: Absolute Lymphocyte Count 1.09 X10^3/uL (0.83-4.51); Absolute Neutrophil Count 7.4 X10^3/uL (2.0-7.7); Basophil# 0.01 X10^3/uL; Basophil% 0.1 % (0-1); Hematocrit 29.6 % (37-47); Hemoglobin 9.8 g/dL (12.0-15.0); Lymphocyte # 1.09 X10^3/ul (0.83-4.51); Lymphocyte % 11.5 % (19-41); Mean Corp Hgb Conc 33.1 g/dL (32-36); Mean Corpuscular Hgb 31.8 pg (27.0-32.0); Mean Corpuscular Volume 96.1 fL (81-99); Mean Platelet Vol. 9.6 fl (6.2-12.0); Monocyte# 0.88 X10^3/uL; Monocyte% 9.3 % (0-10); NRBC Flagged by Analyzer 0 % (0-5); Neutrophil # 7.35 X10^3/uL (2.7-7.7); Neutrophil % 77.9 % (47-70); Platelet Count 247 K/mm3 (150-450); RBC Distribution Width CV 18.4 % (11.6-14.6); RBC Distribution Width SD 64.8 fl (35.1-43.9); Red Blood Count 3.08 M/mm3 (4.2-5.4); White Blood Count 9.4 K/mm3 (4.4-11.0)
[2021-11-28 06:45] LABS: Anion Gap 7 (5-15); BUN 21 mg/dL (7-18); BUN/Creat Ratio 26.7 RATIO (10-20); Calcium,Total 9.6 mg/dL (8.5-10.1); Chloride 98 mmol/L (98-107); Creatinine, Serum 0.79 mg/dL (0.55-1.02); EST Glomerular Filtration Rate 78 mL/min (>60); Est Glom Filt Rate - Afr Amer 95 mL/min (>60); Estimated Creatinine Clearance 62.94 ml/min; Glucose 148 mg/dL (74-106); Potassium 3.2 mmol/L (3.5-5.1); Sodium Level 137 mmol/L (136-145)
[2021-11-28] MEDS: Albuterol 2.5 MG/3 ML VIAL.NEB. INHALATION ×3 (07:44→18:45)
[2021-11-28] MEDS: Budesonide Respules 0.5 MG/2 ML AMPUL.NEB. INHALATION ×2 (07:44→18:45)
[2021-11-28] MEDS: oxyCODONE 5 MG Tablet 10 MG PO ×2 (08:06→21:34)
[2021-11-28] MEDS: Potassium Chloride Oral Tablet 20 MEQ 40 MEQ PO ×2 (08:06→09:33)
[2021-11-28] MEDS: Nitrofurantoin Macrocrystals 100 MG Capsule PO ×2 (08:06→16:40)
[2021-11-28] MEDS: Insulin Glargine-YFGN 100 UNIT/ML Pen 20 UNIT SC (08:07)
[2021-11-28 08:36] LABS: Bedside Glucose 117 mg/dL (74-106)
[2021-11-28] MEDS: Magnesium Sulfate 4gm/100mL 4 GM/100 ML IV.SOLN. IV (09:22)
[2021-11-28] MEDS: dexAMETHasone 4 MG/ML Vial IV ×2 (09:22→21:35)
[2021-11-28] MEDS: Memantine Hydrochloride 5 MG Tablet PO (09:23)
[2021-11-28] MEDS: Pantoprazole Sodium 40 MG Tablet PO (09:23)
[2021-11-28] MEDS: Furosemide 40 MG Tablet PO (09:23)
[2021-11-28] MEDS: Metoprolol Tartrate 50 MG Tablet PO ×2 (09:23→21:27)
[2021-11-28] MEDS: Lisinopril 10 MG Tablet PO (09:23)
[2021-11-28] MEDS: FLUoxetine 20 MG Capsule 60 MG PO (09:23)
[2021-11-28] MEDS: Sodium Chloride 1 GM Tablet PO (09:23)
[2021-11-28] MEDS: 0.9% Saline Lock 10 ML Syringe IV (09:24)
[2021-11-28 11:26] LABS: Bedside Glucose 190 mg/dL (74-106)
[2021-11-28] MEDS: Acetaminophen 325 MG Tablet 650 MG PO (11:26)
[2021-11-28] MEDS: Insulin Lispro 100 UNIT/ML INSULN.PEN 12 UNIT SC (12:41)
[2021-11-28] MEDS: Insulin Lispro 100 UNIT/ML INSULN.PEN SC ×2 (12:41→21:37)
--- NOTE | 2021-11-28 12:43 | PCM.PN.HOSP ---
Subjective Subjective Patient indicates her headaches have improved. No issues overnight. Daughter is at the bedside. No significant concerns at this time. Patient to undergo whole brain radiation again tomorrow and pre-CERT is pending for discharge. Objective Data Objective Data Vital Signs: Vital Signs Temp Pulse Resp BP Pulse Ox 98.6 F 86 18 125/86 H 96 11/28/21 09:21 11/28/21 09:23 11/28/21 09:21 11/28/21 09:23 11/28/21 09:21 Oxygen Flow Rate (L/min) 2 Oxygen Delivery Method Nasal Cannula Weight: 67.1 kg Body Mass Index (BMI) 25.4 Intake & Output: Intake and Output for Last 24 Hours 11/26/21 11/27/21 11/28/21 23:59 23:59 23:59 Intake Total 900 / 1020 820 / 820 360 / 360 Output Total 0 / 0 Balance 900 / 1020 820 / 820 360 / 360 Medical Nutrition Assessment Dietitian: Malnutrition Criteria Met Start: 11/24/21 17:29 Freq: Status: Active Protocol: Document 11/24/21 17:29 (Rec: 11/24/21 17:29 [id number]) Nutrition Malnutrition Evidence of Malnutrition Exists Yes Malnutrition (severe): Chronic Evidenced By Suboptimal Energy Intake ( Severe),Weight Loss (Severe) Clinical Problem Chronic Disease or Condition Related Malnutrition Etiology severe, chronic malnutrition r /t inadequate energy intake w/ increased energy needs d/t metastatic disease Signs/Symptoms as evidenced by estimated PO intake meeting <75% of estimated energy needs >3 months; unintentional wt loss of 56.1#/27.5% over past 1 year Status Active Problem Recommendation Dietitian Recommendations/Changes will change diet to regular given malnutrition; will offer 120mL ensure enlive 4x/day w/ medpass and 1 scoop beneprotein w/ meals for additional nutrition if consumed Lab / Micro Data Result Diagrams: 11/28/21 05:37 11/28/21 05:37 Labs: Laboratory Results - last 24 hr 11/27/21 16:01: POC Glucose 205 H 11/27/21 21:59: POC Glucose 155 H 11/28/21 05:37: WBC 9.4, RBC 3.08 L, Hgb 9.8 L, Hct 29.6 L, MCV 96.1, MCH 31.8, MCHC 33.1, RDW Std Deviation 64.8 H, RDW Coeff of Lashonda 18.4 H, Plt Count 247, MPV 9.6, Immature Gran % (Auto) 1.200 H, Neut % (Auto) 77.9 H, Lymph % (Auto) 11.5 L, Weld % (Auto) 9.3, Eos % (Auto) 0.0, Baso % (Auto) 0.1, Absolute Neuts (auto) 7.4, Absolute Lymphs (auto) 1.09, Nucleated RBC % 0 11/28/21 05:37: Sodium 137, Potassium 3.2 L, Chloride 98, Carbon Dioxide 32.0, Anion Gap 7, BUN 21 H, Creatinine 0.79, Estim Creat Clear Calc 62.94, Est GFR (MDRD) Af Amer 95, Est GFR (MDRD) Non-Af 78, BUN/Creatinine Ratio 26.7 H, Glucose 148 H, Calcium 9.6 11/28/21 07:59: POC Glucose 117 H 11/28/21 11:20: POC Glucose 190 H Micro: Microbiology 11/22/21 18:05 Blood Culture (Wb) - Left Forearm Blood Culture - Final No growth in 5 days. 11/22/21 18:00 Blood Culture (Wb) - Port Blood Culture - Final No growth in 5 days. 11/22/21 15:49 Urine, Clean Catch Urine Culture - Final Raoultella planticola 11/23/21 11:40 Nasal Secretion SARS-CoV-2 & FLU Antigen (Rapid) - Final 11/23/21 11:20 Urine, Random Legionella Antigen - Final 11/23/21 11:20 Urine, Random Streptococcus pneumoniae Antigen (M - Final Physical Exam Const alert, oriented x3 and no apparent distress Constitutional Narrative: Upper middle-aged white female who appears much older than stated age, lying in bed, daughter at bedside, patient appears nontoxic and comfortable, nursing at bedside Exam Limitations: no limitations HEENT head/scalp atraumatic and moist oral mucous membranes HEENT Narrative: Mallampati 2, no thrush Head and Scalp: normocephalic Resp normal respiratory effort, no retractions, no use of accessory muscles and clear to auscultation bilaterally Resp Narrative: Diffusely diminished but clear Auscultation: Negative for crackles, rales, rhonchi or wheezes Cardio regular rate, regular rhythm, S1 normal heart sound, S2 normal heart sound, no murmurs, no rub, no gallops, no clicks and no JVD GI normal to inspection, nondistended, normoactive bowel sounds, soft to palpation, non-tender and non-distended Extremity no clubbing, cyanosis or edema Peripheral Pulses: Yes pulses 2+ throughout Skin Skin Narrative: Med port left upper chest-clean and dry Neuro oriented x3, moves all extremities and no focal motor deficits Sensorium / Orientation: awake and alert Speech: speech normal Psych Psych Narrative: Affect is slightly flat Assessment & Plan Assessment/Plan (1) Brain metastases: (2) Infectious encephalopathy: (3) Urinary tract infection: (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 -avoid triptans, NSAIDs given h/o ICH -Continue compazine SCLC stage IV -Patient with brain metastasis -Currently receiving whole brain radiation -Next dose is tomorrow -Goals of treatment are palliation and symptom control -Most recent MRI from 11/23/2021 shows numerous extensive small to moderate size rounded metastatic lesions throughout bilateral hemispheres, thalamic lobes, and right side of midbrain as well as throughout bilateral cerebellar lobes, mildly hemorrhagic metastatic tumor in the posterior aspect of the parietal lobe on the left that is stable from previous MRI on 11/01/2021, and metastatic lesions in the brain parenchyma to the apex of the skull -Continue Decadron for vasogenic edema Acute on chronic macrocytic anemia -Transfuse 1 unit on 11/23/2021 -Hemoglobin has been stable otherwise -Continue to monitor -No signs of acute bleeding Hypokalemia -Repeat 40 mill equivalents today -Magnesium bolus ordered as well -Repeat lab in a.m. Hypomagnesemia -4 g magnesium -Repeat mag level in a.m. -This should help hypokalemia DM-2 -Continue current regimen -Continue Accu-Cheks before meals and at bedtime -Hold home oral agents/Trulicity while hospitalized -A.m. fasting blood sugar was 148 and overall most blood sugars are between 140 and 180 which is desired Hyperlipidemia -Continue atorvastatin GERD -Continue home PPI Hypertension -Continue home metoprolol 50 mg p.o. twice daily -Continue lisinopril 10 mg daily -Continue home Lasix COPD -Continue home inhalers -As needed albuterol Depression/anxiety -Would recommended discontinuing home Xanax -Continue BuSpar -Continue Prozac DVT prophylaxis -SCDs with recent need for transfusion -Continue to monitor clinically Debility -[facility] and pre-CERT is currently pending CODE STATUS -Full code Charges/Coding Visit Charges Inpatient E&M: 67413 Subs Hosp L2
[2021-11-28] MEDS: oxyCODONE 5 MG Tablet PO (12:44)
[2021-11-28 16:31] LABS: Bedside Glucose 149 mg/dL (74-106)
[2021-11-28] MEDS: Insulin Lispro 100 UNIT/ML INSULN.PEN 6 UNIT SC (16:41)
--- NOTE | 2021-11-28 16:49 | CT_ITS ---
INDICATION: Left sided weakness EXAMINATION: CT BRAIN - CT Head or Brain W/O Contrast Injection TECHNIQUE: Multiple axial images were obtained of the head without intravenous contrast. A radiation dose optimization technique was used for this scan. IV Contrast dosage and agent: None. RADIATION DOSAGE (If Supplied By Facility): CTDIvol = ( 44.99 ) mGy, DLP = ( 812.98 ) mGycm COMPARISON: CT examination of 10/30/2021, MRI examination of 722. FINDINGS: HEMISPHERES: 1. The cerebral parenchyma, ventricular system and gyral pattern have normal configuration. There is an area of hyperdensity in the region of the central sulcus on the LEFT at, measuring approximately 13 x 16 mm in size, this does correspond the area of previous hemorrhage, and to the recent MRI findings of a hemorrhagic metastatic lesion. Size has not changed significantly in the interval. There is mild surrounding vasogenic edema. 2. Several additional subtle areas of hyperdensity are noted corresponding to the previous findings of multiple metastatic deposits, including the RIGHT centrum semiovale, the subependymal region of the RIGHT lateral ventricle. Additional subtle area noted within the RIGHT temporal lobe, as well as RIGHT cerebellar hemisphere. 3. The hemispheric white matter has normal appearance. 4. No intraparenchymal mass, hemorrhage, or acute territorial infarct. CEREBELLUM - BRAINSTEM: The cerebellum, brainstem, basilar and suprasellar cisterns have normal appearance. No Chiari malformation. PITUITARY: Infundibulum and pituitary have normal configuration. Midline structures appear normal. CSF SPACES: Appropriate for age. No hydrocephalus. Basal cisterns are patent. VESSELS: 1. There is peripheral calcification involving a RIGHT cavernous carotid aneurysm suspected approximately 1.4 cm in maximal dimension. 2. No hyperdense vascular signs noted.. ORBITS AND PARANASAL SINUSES: 1. Normal appearance of the bony orbits. Normal appearance of the globes and retrobulbar soft tissues.. 2. Paranasal sinuses are clear. BONY ELEMENTS: Bony elements of the cranial vault, facial skeleton and skull base have normal appearance. SCALP AND SOFT TISSUES: Normal appearance of the soft tissues of the scalp and the visualized face OTHER: None ASPECTS Score for Acute Strokes: 10 CT/Brain/Head without Contrast IMPRESSION: 1. 1.3 x 1.6 cm density noted in the LEFT central sulcus, corresponding to the area of previous hemorrhage, and corresponding to the hemorrhagic metastatic deposit on recent MRI. Current density likely represents a combination of blood products and calcification. Size has not changed significantly. There is mild surrounding vasogenic edema. 2. Multiple smaller subtle areas of hyperdensity consistent with recent MRI findings of extensive intraparenchymal metastatic disease. 3. No acute territorial infarct. No mass effect or midline shift. 4. Stable appearance of a peripherally calcified RIGHT cavernous carotid aneurysm. Electronically Signed: Junior Tariq MD at 20:03 EDT ,
--- NOTE | 2021-11-28 17:44 | PCM.HOSP.N ---
Hospitalist Note Called by nursing as daughter had expressed some concerns about left-sided weakness. Bedside NIH was done by nursing and found to be. CT of the head was performed given complexity of diagnosis and given the fact the patient is currently undergoing whole brain radiation. CT read was pending and signed out to the night team.
[2021-11-28] MEDS: Atorvastatin Calcium 40 MG Tablet PO (21:27)
[2021-11-29] VITALS (8 sets, daily range): BP systolic 103–113; BP diastolic 51–64; PULSE 68–80; RESP 14–22; TEMP 36.6–36.7; O2SAT 94–99
[2021-11-29 01:06] LABS: Bedside Glucose 163 mg/dL (74-106)
[2021-11-29 05:21] LABS: Absolute Lymphocyte Count 0.93 X10^3/uL (0.83-4.51); Absolute Neutrophil Count 10.4 X10^3/uL (2.0-7.7); Basophil# 0.02 X10^3/uL; Basophil% 0.2 % (0-1); Hematocrit 29.3 % (37-47); Hemoglobin 9.8 g/dL (12.0-15.0); Lymphocyte # 0.93 X10^3/ul (0.83-4.51); Lymphocyte % 7.5 % (19-41); Mean Corp Hgb Conc 33.4 g/dL (32-36); Mean Corpuscular Hgb 32.2 pg (27.0-32.0); Mean Corpuscular Volume 96.4 fL (81-99); Monocyte# 1.02 X10^3/uL; Monocyte% 8.2 % (0-10); NRBC Flagged by Analyzer 0 % (0-5); Neutrophil # 10.35 X10^3/uL (2.7-7.7); Neutrophil % 83.5 % (47-70); POSITIVE MORPHOLOGY YES; Platelet Count 211 K/mm3 (150-450); RBC Distribution Width CV 18.2 % (11.6-14.6); RBC Distribution Width SD 65.1 fl (35.1-43.9); Red Blood Count 3.04 M/mm3 (4.2-5.4); White Blood Count 12.4 K/mm3 (4.4-11.0)
[2021-11-29 05:37] LABS: Differential Indicated SCAN CRITERIA MET
[2021-11-29 05:44] LABS: Anion Gap 6 (5-15); BUN 22 mg/dL (7-18); BUN/Creat Ratio 30.9 RATIO (10-20); Calcium,Total 9.4 mg/dL (8.5-10.1); Chloride 96 mmol/L (98-107); Creatinine, Serum 0.71 mg/dL (0.55-1.02); EST Glomerular Filtration Rate 88 mL/min (>60); Est Glom Filt Rate - Afr Amer 106 mL/min (>60); Estimated Creatinine Clearance 70.03 ml/min; Glucose 148 mg/dL (74-106); Potassium 3.3 mmol/L (3.5-5.1); Sodium Level 134 mmol/L (136-145)
[2021-11-29] MEDS: busPIRone 15 MG TABLET 7.5 MG PO ×2 (05:58→14:07)
[2021-11-29] MEDS: oxyCODONE 5 MG Tablet 10 MG PO ×2 (05:59→13:18)
[2021-11-29 06:14] LABS: Anisocytosis 2+; Differential Comment SCANNED
[2021-11-29 06:15] LABS: Microcytosis 1+; Polychromasia RARE
[2021-11-29] MEDS: Albuterol 2.5 MG/3 ML VIAL.NEB. INHALATION (07:25)
[2021-11-29] MEDS: Budesonide Respules 0.5 MG/2 ML AMPUL.NEB. INHALATION (07:25)
--- NOTE | 2021-11-29 09:19 | CASEMGMT ---
NIESHA e-mailed updates to [facility]. Karen Manning LEAN FACILITATOR SOFIYA
[2021-11-29] MEDS: Insulin Lispro 100 UNIT/ML INSULN.PEN SC ×2 (09:52→11:17)
[2021-11-29] MEDS: Insulin Lispro 100 UNIT/ML INSULN.PEN 6 UNIT SC ×2 (09:53→11:18)
[2021-11-29] MEDS: Insulin Glargine-YFGN 100 UNIT/ML Pen 20 UNIT SC (09:53)
[2021-11-29] MEDS: Pantoprazole Sodium 40 MG Tablet PO (09:54)
[2021-11-29] MEDS: Sodium Chloride 1 GM Tablet PO (09:54)
[2021-11-29] MEDS: FLUoxetine 20 MG Capsule 60 MG PO (09:54)
[2021-11-29] MEDS: Memantine Hydrochloride 5 MG Tablet PO (09:54)
[2021-11-29] MEDS: dexAMETHasone 4 MG/ML Vial IV (09:55)
[2021-11-29] MEDS: Furosemide 40 MG Tablet PO (09:55)
[2021-11-29] MEDS: Nitrofurantoin Macrocrystals 100 MG Capsule PO (09:55)
[2021-11-29] MEDS: Lisinopril 10 MG Tablet PO (09:55)
[2021-11-29] MEDS: 0.9% Saline Lock 10 ML Syringe IV ×2 (09:56→14:30)
[2021-11-29] MEDS: Potassium Chloride Oral Tablet 20 MEQ 40 MEQ PO (10:10)
[2021-11-29] MEDS: Metoprolol Tartrate 50 MG Tablet PO (10:10)
[2021-11-29] MEDS: guaiFENesin 10 ML UDC (200MG/10ML) 20 ML PO (10:11)
--- NOTE | 2021-11-29 10:25 | CASEMGMT ---
NIESHA received an e-mail from Sofiya at [facility] and patient was approved. NIESHA notified patient and her daughter. NIESHA also notified RN, physician, charge master specialist, and technical rep. Patient will have radiation today so NIESHA will set up transport for after that. Plan: d/c to [facility]. Karen ARRIAZA
[2021-11-29 10:46] LABS: Bedside Glucose 153 mg/dL (74-106)
[2021-11-29 11:26] LABS: Bedside Glucose 175 mg/dL (74-106)
--- NOTE | 2021-11-29 11:40 | PCM.TXEXTCAR ---
Diet 11/24/21 17:19 Diet: Regular - General Type of Dietary Supplement:: Beneprotein Is pt able to select menu?: Yes Diet Comments: 1 scoop w/ meals- may want in smoothie/milkshake Routine Orders/Code Status O2 Liters per Minute: 2 O2 Frequency: Continuous Keep PO Greater than or Equal to (%): 90 Routine Lab Work: - (fingerstick blood sugars ACQHS- coverage with Humalog SQ 200-250: 5 units, 251-300: 8 units, 301-350: 12 units, 351-400: 15 units) Code Status: Full Code Therapies Weight Bearing: Full weight bearing Physical Therapy: Eval and Treat Occupational Therapy: Eval and Treat Problem/Diagnosis (1) Brain metastases: Status: Acute Comment: lung cancer with brain mets (2) Infectious encephalopathy: Status: Acute (3) Urinary tract infection: Status: Acute Comment: Raoultella planticola (4) 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: Status: Acute (5) Acute hypokalemia: Status: Acute (6) Hypomagnesemia: Status: Acute (7) COPD (chronic obstructive pulmonary disease): Status: Chronic (8) Type II diabetes mellitus: Status: Chronic Allergies/Procedures Done in Hospital Allergies No Known Allergies Allergy (Verified 11/22/21 13:09) Procedures: - (brain radiation) Type of Care/Length of Stay Estimated LOS: Convalescent Care Less Than 30 days Type of Care Needed: Skilled Rehab Potential: Good Prognosis: Good Additional Orders/Day of Discharge H&P will serve as current which was dated: 11/22/21 Day of Discharge: 11/29/21 Dietary and Speech Recommendations Dietitian Recommendations/Changes: will change diet to regular given malnutrition; will offer 120mL ensure enlive 4x/day w/ medpass and 1 scoop beneprotein w/ meals for additional nutrition if consumed Discharge Plan Admission Admit Date/Time: 11/22/21 17:19 Primary Reason for Your Visit: metabolic encephalopathy secondary to cystitis Attending Provider: Roderick Boyd Primary Care Provider: Sarah Duarte Consulting Providers: Norma Acevedo ; Robson Wallace ; Eric Mendoza ; Arianna Briscoe Discharge Orders/Prescriptions Prescriptions: New buspirone 15 mg Tablet 7.5 mg PO TID Qty: 0 RF: 0 insulin lispro [Humalog KwikPen Insulin] 100 unit/mL Insulin Pen 6 unit subcut 0800,1200,1700 Qty: 0 RF: 0 insulin glargine-yfgn 100 unit/mL (3 mL) Insulin Pen 20 unit subcut BREAKFAST Qty: 0 RF: 0 acetaminophen [Tylenol] 325 mg Tablet 650 mg PO Q6H PRN PRN (Reason: Pain Score 1-10/Temp > 100.7 F) Qty: 0 RF: 0 albuterol sulfate 2.5 mg /3 mL (0.083 %) Solution For Nebulization 2.5 mg inhalation Q6HWA.RT Qty: 0 RF: 0 potassium chloride [Klor-Con M20] 20 mEq Tablet,Er Particles/Crystals 40 meq PO BREAKFAST Qty: 0 RF: 0 metoprolol tartrate 50 mg Tablet 50 mg PO BID Qty: 0 RF: 0 budesonide 0.5 mg/2 mL Suspension For Nebulization 0.5 mg inhalation Q12H.RT Qty: 0 RF: 0 cyclobenzaprine 5 mg Tablet 5 mg PO TID PRN (Reason: Muscle Spasm) Qty: 0 RF: 0 sodium chloride 1,000 mg Tablet,Soluble 1 g PO DAILY Qty: 0 RF: 0 Ensure Enlive 0.08 gram-1.5 kcal/mL Liquid 120 ml PO 4X/DAY Qty: 0 RF: 0 oxycodone 5 mg Tablet 5 mg PO Q4H PRN PRN (Reason: Pain, Moderate) 7 Days Qty: 12 RF: 0 furosemide 40 mg Tablet 40 mg PO DAILY Qty: 0 RF: 0 dexamethasone 4 mg tablet 4 mg PO BID Qty: 14 RF: 0 Continued lidocaine-prilocaine 2.5-2.5 % cream 1 applic topical ONCE PRN (Reason: Port access ) 30 Days Qty: 30 RF: 2 fluoxetine 20 mg capsule 60 mg PO DAILY 90 Days Qty: 270 RF: 2 lisinopril 10 mg tablet 10 mg PO DAILY Qty: 90 RF: 1 ondansetron 8 mg tablet,disintegrating 8 mg PO Q8H PRN (Reason: nausea and vomiting) Qty: 30 RF: 2 atorvastatin 40 mg tablet 40 mg PO QHS Qty: 90 RF: 3 pantoprazole 20 mg tablet,delayed release (DR/EC) 40 mg PO DAILY Qty: 90 RF: 1 Discontinued Trulicity 1.5 mg/0.5 mL pen injector 1.5 mg SUBCUT FR Qty: 6 RF: 2 nitroglycerin 0.4 MG tablet 0.4 mg SL Q5M PRN (Reason: Chest Pain) RF: 0 insulin aspart U-100 [Novolog Flexpen U-100 Insulin] 100 unit/mL (3 mL) insulin pen 12 - 14 unit SC TID RF: 0 budesonide-formoterol [Symbicort] 160-4.5 mcg/actuation HFA aerosol inhaler 2 puff INHALATION BID RF: 0 furosemide 40 mg tablet 40 mg PO DAILY RF: 0 sodium chloride 1 gram tablet 1,000 mg PO DAILY RF: 0 metoprolol tartrate 50 mg tablet 50 mg PO BID RF: 0 buspirone 7.5 mg tablet 7.5 mg PO TID RF: 0 insulin glargine [Lantus Solostar U-100 Insulin] 100 unit/mL (3 mL) insulin pen 20 unit SC QAM RF: 0 potassium chloride 20 mEq tablet extended release 40 meq PO DAILY RF: 0 magnesium oxide 200 mg magnesium tablet 200 mg PO BID RF: 0 (DME) pen needle, diabetic [BD Ultra-Fine Teri Pen Needle] 32 gauge x 5/32 needle See Rx Instructions .ROUTE .MEDSUPPLY Qty: 150 RF: 6 alprazolam 0.25 mg tablet 0.25 mg PO DAILY PRN (Reason: anxiety) Qty: 10 RF: 0 metformin 1,000 mg tablet 1,000 mg PO BID Qty: 180 RF: 1 Referrals / Follow Up: Sarah Duarte MD [Primary Care Provider] - Max Gaspar MD [NON-STAFF] - See Referral Note (call for appointment) Robson Wallace DO [NON-STAFF] - See Referral Note (as directed) Disposition Disposition (needs filled in before D/C Order can be placed): Detention Facility
--- NOTE | 2021-11-29 13:06 | CASEMGMT ---
NIESHA arranged for patient to get picked up at 3p via cot by [facility]. NIESHA e-mailed orders and car pick up driver time to Sofiya at [facility]. NIESHA notified RN, patient, and her daughter. All in agreement with discharge plan. Plan: d/c to [facility] under skilled level of care on a 7000. [facility] transported via cot. Karen Manning ASSISTANT UNIT FORESTERPriyank ARRIAZA
--- NOTE | 2021-11-29 13:10 | EKG12_ITS ---
Test Reason : CHEST TIGHTNESS Blood Pressure : / mmHG Vent. Rate : 076 BPM Atrial Rate : 076 BPM P-R Int : 150 ms QRS Dur : 102 ms QT Int : 418 ms P-R-T Axes : 061 -65 019 degrees QTc Int : 470 ms Normal sinus rhythm Left axis deviation Septal infarct , age undetermined, cannot be excluded Abnormal ECG Confirmed by MYLES KAN, BROCK ([id number]), editorial manager JOSE GUADALUPE ALLEN ([id number]) on 12/02/2021 10:15:40 AM Referred By: AMBER Confirmed By:BROCK BUENO MD
[2021-11-29] MEDS: cycloBENZAPRine HCl 5 MG TABLET PO (13:19)
--- NOTE | 2021-11-29 13:55 | PHA.DC.MR ---
Pharmacy Service has performed discharge medication reconciliation for this patient. The patient's discharge medication list was reviewed for discrepancies and discrepancies were resolved. Home Medications lidocaine-prilocaine 2.5 %-2.5 % topical cream 1 applic TOPICAL ONCE PRN 30 Days #30 g 10/19/20 atorvastatin 40 mg tablet 40 mg PO QHS #90 tablet 02/10/21 ondansetron 8 mg disintegrating tablet 8 mg PO Q8H PRN #30 tab 06/08/21 fluoxetine 20 mg capsule 60 mg PO DAILY 90 Days #270 cap 06/21/21 lisinopril 10 mg tablet 10 mg PO DAILY #90 tab 06/21/21 pantoprazole 20 mg tablet,delayed release 40 mg PO DAILY #90 tab 09/02/21 acetaminophen [Tylenol] 650 mg PO Q6H PRN PRN #0 tab 11/29/21 albuterol sulfate 2.5 mg INHALATION Q6HWA.RT #0 ml 11/29/21 budesonide 0.5 mg INHALATION Q12H.RT #0 ml 11/29/21 buspirone 7.5 mg PO TID #0 tab 11/29/21 cyclobenzaprine 5 mg PO TID PRN #0 tab 11/29/21 dexamethasone 4 mg PO BID #14 tab 11/29/21 food supplemt, lactose-reduced [Ensure Enlive] 120 ml PO 4X/DAY #0 ml 11/29/21 furosemide 40 mg PO DAILY #0 tab 11/29/21 insulin glargine-yfgn 20 unit SUBCUT BREAKFAST #0 ml 11/29/21 insulin lispro [Humalog KwikPen Insulin] 6 unit SUBCUT 0800,1200,1700 #0 ml 11/29/21 metoprolol tartrate 50 mg PO BID #0 tab 11/29/21 oxycodone 5 mg PO Q4H PRN PRN 7 Days #12 tab 11/29/21 potassium chloride [Klor-Con M20] 40 meq PO BREAKFAST #0 tab 11/29/21 sodium chloride 1 g PO DAILY #0 tab 11/29/21
--- NOTE | 2021-11-29 14:48 | NURSING ---
Report called to Riley at [facility]. Patient to be picked up at 1500.
--- NOTE | 2021-11-29 14:50 | CASEMGMT ---
NIESHA e-mailed negative COVID test to Sofiya at [facility]. Karen Manning WELDING MACHINE OPERATOR ELECTROSLAG APPLICATION PROJECT LEADER
--- NOTE | 2021-11-29 20:11 | DS.PCM_ITS ---
Providers Date of Admission: 11/22/21 Date of Discharge: 11/29/21 Primary Care Physician: Dr. Sarah Duarte MD Consultations 11/23/21 11:49 Consult: Radiation Oncology Routine Consulting Provider: Robson Wallace Reason for Consult: brain metastasis EMERGENT Consult: No MD Notified: Yes Date Notified: 11/23/21 Time Notified: 11:50 Method of Notification: Verbal Reason For Visit: ACUTE ENCEPHALOPATHY Diagnosis Discharge Diagnosis (1) Brain metastases: Status: Acute Code(s): C79.31 - Secondary malignant neoplasm of brain (2) Infectious encephalopathy: Status: Acute Code(s): G93.49 - Other encephalopathy; B99.9 - Unspecified infectious disease (3) Urinary tract infection: Status: Acute Code(s): N39.0 - Urinary tract infection, site not specified (4) 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: Status: Acute Code(s): C79.31 - Secondary malignant neoplasm of brain (5) Acute hypokalemia: Status: Acute Code(s): E87.6 - Hypokalemia (6) Hypomagnesemia: Status: Acute Code(s): E83.42 - Hypomagnesemia (7) COPD (chronic obstructive pulmonary disease): Status: Chronic Code(s): J44.9 - Chronic obstructive pulmonary disease, unspecified Qualifiers: COPD type: unspecified COPD Qualified Code(s): J44.9 - Chronic obstructive pulmonary disease, unspecified (8) Type II diabetes mellitus: Status: Chronic Code(s): E11.9 - Type 2 diabetes mellitus without complications Qualifiers: Diabetes mellitus complication status: with hyperglycemia 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 intake meeting less than 75% of estimated energy needs more than 3 months and unintentional weight loss of 56 pounds over the past year-patient was given Ensure Enlive 4 times a day with med Pass and 1 scoop of Beneprotein with meals for additional nutrition Pneumonia was ruled out Medications at Discharge Home Medications lidocaine-prilocaine 2.5 %-2.5 % topical cream 1 applic topical ONCE PRN Port access 30 days #30 grams 10/19/20 atorvastatin 40 mg tablet 40 mg PO QHS cholesterol #90 tabs 02/10/21 ondansetron 8 mg disintegrating tablet 8 mg PO Q8H PRN nausea and vomiting #30 tabs 06/08/21 fluoxetine 20 mg capsule 60 mg PO DAILY Check with primary doctor 3 months #270 caps 06/21/21 lisinopril 10 mg tablet 10 mg PO DAILY BLOOD PRESSURE #90 tabs 06/21/21 pantoprazole 20 mg tablet,delayed release 40 mg PO DAILY gerd #90 tabs 09/02/21 acetaminophen 325 mg tablet (Tylenol) 650 mg PO Q6H PRN PRN Pain Score 1-10/Temp > 100.7 F #0 tabs 11/29/21 albuterol sulfate 2.5 mg (3 mL) inhalation Q6HWA.RT #0 mL 11/29/21 budesonide 0.5 mg/2 mL suspension for nebulization 0.5 mg (2 mL) inhalation Q12H.RT #0 mL 11/29/21 buspirone 15 mg tablet 7.5 mg PO TID #0 tabs 11/29/21 cyclobenzaprine 5 mg tablet 5 mg PO TID PRN Muscle Spasm #0 tabs 11/29/21 dexamethasone 4 mg tablet 4 mg PO BID #14 tabs 11/29/21 food supplemt, lactose-reduced 0.08 gram-1.5 kcal/mL oral liquid (Ensure Enlive) 120 ml PO 4X/DAY #0 mL 11/29/21 furosemide 40 mg tablet 40 mg PO DAILY #0 tabs 11/29/21 insulin glargine-yfgn 100 unit/mL (3 mL) subcutaneous pen 20 unit (0.2 mL) subcut BREAKFAST #0 mL 11/29/21 insulin lispro 100 unit/mL subcutaneous pen (Humalog KwikPen (U-100) Insulin) 6 unit (0.06 mL) subcut 0800,1200,1700 #0 mL 11/29/21 metoprolol tartrate 50 mg tablet 50 mg PO BID #0 tabs 11/29/21 oxycodone 5 mg tablet 5 mg PO Q4H PRN PRN Pain, Moderate 7 days #12 tabs 11/29/21 potassium chloride 20 mEq tablet,extended release(part/cryst) (Klor-Con M) 40 meq PO BREAKFAST #0 tabs 11/29/21 sodium chloride 1,000 mg soluble tablet 1 g PO DAILY #0 tabs 11/29/21 Hospital Course Operations None Procedures - (Radiation treatment of the brain) Summary of Care Provided Minutes Spent on Discharge: 31 Hospital Course: This 61-year-old white female was seen in the emergency room at [facility] with complaints of generalized weakness and mental status change. Work-up in the emergency room included a CBC which was remarkable for a hemoglobin of 7.8, potassium was 2.9, and urinalysis showed +2 bacteria and 5-10 WBCs. Chest x-ray was read out as showing a right pleural effusion, there was also noted to be an indication of a right perihilar pneumonia. Patient was admitted to PCU for acute encephalopathy with a UTI and possible pneumonia, the pneumonia was ultimately ruled out, she was kept on IV antibiotics for a urinary tract infection, patient's potassium was replaced with supplemental potassium, she was set up for inpatient radiation to the brain due to her metastatic small cell cancer to the brain. Patient was seen by PT and OT, it was felt that she would benefit from short-term placement in an extended care facility for inpatient rehab services. On 11/29/2021, patient was seen and examined: On examination she appeared in good health and spirits, she does not appear to be in any distress. Vital signs as documented. Skin warm and dry and without overt rashes. Neck without JVD, thyroid appears normal, trachea is midline, neck is supple. Lungs clear, normal air movement was noted. Heart exam notable for regular rhythm, normal sounds and absence of murmurs, rubs or gallops. Abdomen unremarkable and without evidence of organomegaly, masses, or abdominal aortic enlargement, bowel sounds are present in all 4 quadrants, no abdominal tenderness was noted. Extremities nonedematous, no cyanosis was noted, no clubbing was noted. Neuro: Cranial nerves II through XII are grossly intact, no focal motor deficits were noted, sensation to light touch and pinprick is intact, motor exam 5/5 throughout. Psych: Patient is alert and oriented x3, she does not appear anxious or depressed, she does not appear agitated. Patient appears stable for transfer to an extended care facility on 11/29/2021 for inpatient rehab services. Weight / BMI Weight Weight: 67.1 kg Body Mass Index (BMI) 25.4 ABG / Lab / Microbiology Data Result Diagrams: 11/29/21 05:13 11/29/21 05:13 Laboratory: Laboratory Results - last 24 hr 11/28/21 21:37: POC Glucose 163 H 11/29/21 05:13: Sodium 134 L, Potassium 3.3 L, Chloride 96 L, Carbon Dioxide 32.0, Anion Gap 6, BUN 22 H, Creatinine 0.71, Estim Creat Clear Calc 70.03, Est GFR (MDRD) Af Amer 106, Est GFR (MDRD) Non-Af 88, BUN/Creatinine Ratio 30.9 H, Glucose 148 H, Calcium 9.4, Magnesium 2.0 11/29/21 05:13: WBC 12.4 H, RBC 3.04 L, Hgb 9.8 L, Hct 29.3 L, MCV 96.4, MCH 32.2 H, MCHC 33.4, RDW Std Deviation 65.1 H, RDW Coeff of Lashonda 18.2 H, Plt Count 211, MPV 9.0, Immature Gran % (Auto) 0.600, Neut % (Auto) 83.5 H, Lymph % (Auto) 7.5 L, Jennings % (Auto) 8.2, Eos % (Auto) 0.0, Baso % (Auto) 0.2, Absolute Neuts (auto) 10.4 H, Absolute Lymphs (auto) 0.93, Nucleated RBC % 0, Differential Comment SCANNED, Polychromasia RARE, Anisocytosis 2+, Microcytosis 1+ 11/29/21 09:51: POC Glucose 153 H 11/29/21 11:16: POC Glucose 175 H Microbiology: Microbiology 11/29/21 12:45 Nasal Secretion SARS-CoV-2 Antigen (Rapid) - Final 11/22/21 18:05 Blood Culture (Wb) - Left Forearm Blood Culture - Final No growth in 5 days. 11/22/21 18:00 Blood Culture (Wb) - Port Blood Culture - Final No growth in 5 days. 11/22/21 15:49 Urine, Clean Catch Urine Culture - Final Raoultella planticola 11/23/21 11:40 Nasal Secretion SARS-CoV-2 & FLU Antigen (Rapid) - Final 11/23/21 11:20 Urine, Random Legionella Antigen - Final 11/23/21 11:20 Urine, Random Streptococcus pneumoniae Antigen (M - Final Meaningful Use Info Meaningful Use Diagnoses (Choose all that apply): None applicable Discharge Plan Admission Admit Date/Time: 11/22/21 17:19 Primary Reason for Your Visit: metabolic encephalopathy secondary to cystitis Attending Provider: Roderick Boyd Primary Care Provider: Sarah Duarte Consulting Providers: Norma Acevedo ; Robson Wallace ; Eric Mendoza ; Arianna Briscoe Discharge Orders/Prescriptions Prescriptions: New buspirone 15 mg Tablet 7.5 mg PO TID Qty: 0 0RF insulin lispro [Humalog KwikPen Insulin] 100 unit/mL Insulin Pen 6 unit subcut 0800,1200,1700 Qty: 0 0RF insulin glargine-yfgn 100 unit/mL (3 mL) Insulin Pen 20 unit subcut BREAKFAST Qty: 0 0RF acetaminophen [Tylenol] 325 mg Tablet 650 mg PO Q6H PRN PRN (Reason: Pain Score 1-10/Temp > 100.7 F) Qty: 0 0RF albuterol sulfate 2.5 mg /3 mL (0.083 %) Solution For Nebulization 2.5 mg inhalation Q6HWA.RT Qty: 0 0RF potassium chloride [Klor-Con M20] 20 mEq Tablet,Er Particles/Crystals 40 meq PO BREAKFAST Qty: 0 0RF metoprolol tartrate 50 mg Tablet 50 mg PO BID Qty: 0 0RF budesonide 0.5 mg/2 mL Suspension For Nebulization 0.5 mg inhalation Q12H.RT Qty: 0 0RF cyclobenzaprine 5 mg Tablet 5 mg PO TID PRN (Reason: Muscle Spasm) Qty: 0 0RF sodium chloride 1,000 mg Tablet,Soluble 1 g PO DAILY Qty: 0 0RF Ensure Enlive 0.08 gram-1.5 kcal/mL Liquid 120 ml PO 4X/DAY Qty: 0 0RF oxycodone 5 mg Tablet 5 mg PO Q4H PRN PRN (Reason: Pain, Moderate) 7 Days Qty: 12 0RF furosemide 40 mg Tablet 40 mg PO DAILY Qty: 0 0RF dexamethasone 4 mg tablet 4 mg PO BID Qty: 14 0RF Continued lidocaine-prilocaine 2.5-2.5 % cream 1 applic topical ONCE PRN (Reason: Port access ) 30 Days Qty: 30 2RF fluoxetine 20 mg capsule 60 mg PO DAILY 90 Days Qty: 270 2RF lisinopril 10 mg tablet 10 mg PO DAILY Qty: 90 1RF ondansetron 8 mg tablet,disintegrating 8 mg PO Q8H PRN (Reason: nausea and vomiting) Qty: 30 2RF atorvastatin 40 mg tablet 40 mg PO QHS Qty: 90 3RF pantoprazole 20 mg tablet,delayed release (DR/EC) 40 mg PO DAILY Qty: 90 1RF Discontinued Trulicity 1.5 mg/0.5 mL pen injector 1.5 mg SUBCUT FR Qty: 6 2RF nitroglycerin 0.4 MG tablet 0.4 mg SL Q5M PRN (Reason: Chest Pain) Label Comments: CHEST PAIN insulin aspart U-100 [Novolog Flexpen U-100 Insulin] 100 unit/mL (3 mL) insu adán pen 12 - 14 unit SC TID budesonide-formoterol [Symbicort] 160-4.5 mcg/actuation HFA aerosol inhaler 2 puff INHALATION BID furosemide 40 mg tablet 40 mg PO DAILY sodium chloride 1 gram tablet 1,000 mg PO DAILY metoprolol tartrate 50 mg tablet 50 mg PO BID buspirone 7.5 mg tablet 7.5 mg PO TID insulin glargine [Lantus Solostar U-100 Insulin] 100 unit/mL (3 mL) insulin pen 20 unit SC QAM potassium chloride 20 mEq tablet extended release 40 meq PO DAILY Rx Instructions: 40 mEq PO daily; magnesium oxide 200 mg magnesium tablet 200 mg PO BID (DME) pen needle, diabetic [BD Ultra-Fine Teri Pen Needle] 32 gauge x 5/32 needle See Rx Instructions .ROUTE .MEDSUPPLY Qty: 150 6RF Rx Instructions: 4 time daily alprazolam 0.25 mg tablet 0.25 mg PO DAILY PRN (Reason: anxiety) Qty: 10 0RF metformin 1,000 mg tablet 1,000 mg PO BID Qty: 180 1RF Referrals / Follow Up: Sarah Duarte MD [Primary Care Provider] - Max Gaspar MD [NON-STAFF] - See Referral Note (call for appointment) Robson Wallace DO [NON-STAFF] - See Referral Note (as directed) Disposition Disposition (needs filled in before D/C Order can be placed): Care Home Facility Charges/Coding Visit Charges Inpatient E&M: 13418 Disch Hosp
== END 2021-11-29 15:29 | disposition skilled nursing facility (03) | DRG 41 ==
LOC: ED 17:01 → PCU 17:39
PROVIDERS: Internal Medicine; Admitting Provider Student in an Organized Health Care Education/Training Program; Emergency Provider Emergency Medicine; PCP Internal Medicine; Visit Provider Internal Medicine
DX: C79.31 Secondary malignant neoplasm of brain (principal); G93.6 Cerebral edema; G93.49 Other encephalopathy; E43 Unspecified severe protein-calorie malnutrition; E27.8 Other specified disorders of adrenal gland; D53.9 Nutritional anemia, unspecified; B99.9 Unspecified infectious disease; J90 Pleural effusion, not elsewhere classified; J98.59 Other diseases of mediastinum, not elsewhere classified; C34.90 Malignant neoplasm of unspecified part of unspecified bronchus or lung; C78.7 Secondary malignant neoplasm of liver and intrahepatic bile duct; I11.0 Hypertensive heart disease with heart failure; E11.9 Type 2 diabetes mellitus without complications; I50.9 Heart failure, unspecified; Z79.4 Long term (current) use of insulin; S06.320A Contusion and laceration of left cerebrum without loss of consciousness, initial encounter; J44.9 Chronic obstructive pulmonary disease, unspecified; E11.65 Type 2 diabetes mellitus with hyperglycemia; N39.0 Urinary tract infection, site not specified; E87.6 Hypokalemia; I25.10 Atherosclerotic heart disease of native coronary artery without angina pectoris; E78.5 Hyperlipidemia, unspecified; E83.42 Hypomagnesemia; K21.9 Gastro-esophageal reflux disease without esophagitis; Z66 Do not resuscitate; Z79.84 Long term (current) use of oral hypoglycemic drugs; Z51.5 Encounter for palliative care; Z87.891 Personal history of nicotine dependence; Y95 Nosocomial condition; Z92.21 Personal history of antineoplastic chemotherapy; Z79.51 Long term (current) use of inhaled steroids; Z79.01 Long term (current) use of anticoagulants; R59.0 Localized enlarged lymph nodes; R09.02 Hypoxemia; F32.A Depression, unspecified
CPT/HCPCS: 36415; 36591; 70450; 70553; 71046; 80048; 80053; 80202; 81001; 82962; 83605; 83735; 85025; 86850; 86900; 86901; 86920; 86922; 87040; 87077; 87086; 87088; 87186; 87426; 87428; 87449; 93005; 94640; 97110; 97163; 97166; 97530; 99251; 99285; A9575; J7030; J7040; J7050; P9016; A4216; G0463

== ENCOUNTER 2021-12-17 20:35 | Inpatient (IN) | payer MEDICAID, SELFPAY ==
[2021-12-17] VITALS (10 sets, daily range): BP systolic 87–108; BP diastolic 51–88; PULSE 74–157; RESP 15–38; TEMP 36.7–37.1; O2SAT 96–100; BMI 24.4
--- NOTE | 2021-12-17 21:06 | CT_ITS ---
STUDY: CTA CHEST REASON FOR EXAM: Female, 61 years old patient with new onset atrial fibrillation with RVR and recent COVID infection. RADIATION DOSAGE (If Supplied By Facility): CTDIvol = ( 16.05 ) mGy, DLP = ( 483.03 ) mGycm TECHNIQUE: The examination was performed with the intravenous administration of 75 mL of Isovue-370. Post-processing of the angiographic images was performed, with multiplanar reformation and 3D reconstruction. Individualized dose optimization techniques were used for this CT. COMPARISON: CT of the chest dated 10/07/2021. FINDINGS: Normal enhancement of the main pulmonary artery and right and left pulmonary arteries. Normal enhancement of the bilateral peripheral pulmonary arteries. There is no demonstrated pulmonary embolism. There is atherosclerotic calcification of the aortic arch with tortuosity. There is no demonstrated aortic dissection. Normal heart and pericardium. There are calcifications of the coronary arteries. There is extensive mediastinal lymphadenopathy primarily in the subcarinal region but also in the paratracheal and pretracheal regions. There is right-sided hilar lymphadenopathy. This is contiguous with the right middle lobe airspace disease and probable mass. Normal visualized trachea and bronchi. The lungs are hyper expanded, with flattening of the hemidiaphragms. There is dense right middle lobe airspace disease and/or mass with postobstructive atelectasis. There is glass attenuation in the right lower lobe that may represent atelectasis and/or airspace disease. There are curvilinear opacity is visible within the left upper lobe. There is interstitial thickening present in right upper lobe that may be secondary to pulmonary fibrosis or lymphangitic metastasis. There are scattered right upper lobe pulmonary nodules that may represent metastatic disease. There are patchy areas of ground glass attenuation within the left lower lobe. This could be postinfectious. There is a moderately large right-sided pleural effusion. Normal chest wall structures. The bones appear osteopenic. Patient has had kyphoplasty of compression fractures of L1 and L3. Normal visualized upper abdomen. CT/CTA Chest W/WO Contrast IMPRESSION: 1. No CTA demonstrated pulmonary embolism or arterial dissection. 2. Extensive mediastinal and right-sided hilar lymphadenopathy consistent with known metastatic lung cancer. 3. There is dense right middle lobe airspace disease and may be secondary to additional malignancy and/or postobstructive atelectasis. 4. Scattered areas of groundglass attenuation and are nodularity throughout both lungs suggestive of metastatic disease or additional infection. Electronically Signed: Shannan Bonds MD at 0:18 EDT ,
--- NOTE | 2021-12-17 22:04 | HP.PCM.HOS_ITS ---
HPI - General General Date of Admission: 12/17/21 Date of Service: 12/17/21 Chief Complaint: Recent COVID, PAF w/ RVR HPI Narrative The patient is a 61 y/o F w/ PMHx: CAD s/p PCI, Diabetes mellitus type II, RLS, COPD, Anxiety and Depression, GERD, Former tobacco use, Hx DVT, Chronic normocytic anemia, COPD, SCLC Stage IV with brain metastasis, history of diagnosis of COVID 2 weeks prior to current presentation with concern for superimposed bacterial pneumonia with reportedly antibiotics initiated at that time with initially reported, fever, chills, cough, nausea, emesis and diarrhea all of which have since resolved she notes but ongoing fatigue and malaise. She denies any associated dypsnea. She from discussions with the nursing facility was diagnosed with COVID-19 on 12/09/2021. She had been performing physical therapy and improving prior to onset of COVID but notes that she is worsened with increasing strength and fatigue. Given patient worsening strength prompted ED evaluation per family. [facility] ED elevation included EKG with sinus rhythm with no acute evidence of ischemia initially however patient converted to new onset atrial fibrillation with RVR while she was in the ED later in the day with rate in the 150s. Patient was administered Lopressor as well as Cardizem, CBC with WC 23.6, hemoglobin 9.8, platelet 145 with left shift, urinalysis unremarkable with no obvious acute evidence of UTI, CMP with sodium 135, potassium 4.6, BUN/creat 27/1.06, unremarkable hepatic profile, glucose 122, lactic acid 1.8, troponin high-sensitivity 9.3, chest x-ray with right airspace disease, infrahilar with no comparison. [facility] Medical History Anxiety Atherosclerosis of [place] coronary artery of [place] heart without angina pectoris Brain aneurysm Cancer Carcinoma, lung Cardiac dysrhythmia Cardiology follow-up encounter Congestive heart failure COPD (chronic obstructive pulmonary disease) Coronary artery disease Cough Depression Diarrhea Diarrhea due to drug DVT (deep venous thrombosis) Edema Electrolyte abnormality Encounter for chemotherapy management Encounter for immunotherapy Former smoker Gastric reflux GERD (gastroesophageal reflux disease) Hiatal hernia History of blood transfusion History of echocardiogram History of fatty infiltration of liver History of stress test Hyperlipidemia Hypertension Hypokalemia Hypomagnesemia Injury of head and neck Loose, teeth Low iron Lower extremity edema Myocardial infarct Normocytic anemia On home oxygen therapy Oxygen dependent Presence of stent in coronary artery (~05/2011) Restless legs Shortness of breath on exertion Sinus drainage Syncope Tremor Type II diabetes mellitus Urinary retention with incomplete bladder emptying Uses wheelchair Vertigo Wears partial dentures Home Medications lidocaine-prilocaine 2.5 %-2.5 % topical cream 1 applic topical ONCE PRN Port access 30 days #30 grams 10/19/20 [Rx Last Taken Unknown] atorvastatin 40 mg tablet 40 mg PO QHS cholesterol #90 tabs 02/10/21 [Rx Last Taken Unknown] ondansetron 8 mg disintegrating tablet 8 mg PO Q8H PRN nausea and vomiting #30 t abs 06/08/21 [Rx Last Taken 12/17/21 08:00] fluoxetine 20 mg capsule 60 mg PO DAILY Check with primary doctor 3 months #270 caps 06/21/21 [Rx Last Taken 11/22/21] lisinopril 10 mg tablet 10 mg PO DAILY BLOOD PRESSURE #90 tabs 06/21/21 [Rx Last Taken Unknown] pantoprazole 20 mg tablet,delayed release 40 mg PO DAILY gerd #90 tabs 09/02/21 [Rx Last Taken 11/22/21] acetaminophen 325 mg tablet (Tylenol) 650 mg PO Q6H PRN PRN Pain Score 1-10/Temp > 100.7 F #0 tabs 11/29/21 [Rx Last Taken Unknown] albuterol sulfate 2.5 mg (3 mL) inhalation Q6HWA.RT #0 mL 11/29/21 [Rx Last Taken 12/17/21 06:00] budesonide 0.5 mg/2 mL suspension for nebulization 0.5 mg (2 mL) inhalation Q12H.RT #0 mL 11/29/21 [Rx Last Taken 12/17/21 08:00] buspirone 15 mg tablet 7.5 mg PO TID #0 tabs 11/29/21 [Rx Last Taken Unknown] cyclobenzaprine 5 mg tablet 5 mg PO TID PRN Muscle Spasm #0 tabs 11/29/21 [Rx Last Taken Unknown] dexamethasone 4 mg tablet 4 mg PO BID #14 tabs 11/29/21 [Rx Last Taken Unknown] food supplemt, lactose-reduced 0.08 gram-1.5 kcal/mL oral liquid (Ensure Enlive) 120 ml PO 4X/DAY #0 mL 11/29/21 [Rx Last Taken Unknown] furosemide 40 mg tablet 40 mg PO DAILY #0 tabs 11/29/21 [Rx Last Taken Unknown] insulin glargine-yfgn 100 unit/mL (3 mL) subcutaneous pen 20 unit (0.2 mL) subcut BREAKFAST #0 mL 11/29/21 [Rx Last Taken 12/17/21 08:00] insulin lispro 100 unit/mL subcutaneous pen (Humalog KwikPen (U-100) Insulin) 6 unit (0.06 mL) subcut 0800,1200,1700 #0 mL 11/29/21 [Rx Last Taken Unknown] metoprolol tartrate 50 mg tablet 50 mg PO BID #0 tabs 11/29/21 [Rx Last Taken 12/17/21 08:00] oxycodone 5 mg tablet 5 mg PO Q4H PRN PRN Pain, Moderate 7 days #12 tabs 11/29/21 [Rx Last Taken 12/17/21 08:00] potassium chloride 20 mEq tablet,extended release(part/cryst) (Klor-Con M) 40 meq PO BREAKFAST #0 tabs 11/29/21 [Rx Last Taken Unknown] sodium chloride 1,000 mg soluble tablet 1 g PO DAILY #0 tabs 11/29/21 [Rx Last Taken 12/17/21 08:00] guaifenesin 600 mg tablet, extended release 12 hr (Mucinex) 600 mg PO BID Check with primary doctor 12/18/21 [History Last Taken 12/17/21 08:00] Allergy/AdvReac Type Severity Reaction Status Date / Time No Known Allergies Allergy Verified 12/08/21 11:27 Family History Father , Age 56 Myocardial infarction Heart disease COPD (chronic obstructive pulmonary disease) Mother COPD (chronic obstructive pulmonary disease) Heart disease Surgical History H/O arthroscopic knee surgery H/O elbow surgery History of cardiac catheterization History of carpal tunnel surgery History of cholecystectomy History of coronary artery stent placement History of lumbar surgery History of tubal ligation Hx of biopsy Presence of coronary angioplasty implant and graft Social History (Reviewed 12/08/21 @ 11:27 by Danica Valera household members: spouse housing: house current occupational status: retired Smoking Status: Former smoker quit date: 06/19/13 pack-years: 35 Tobacco: How many years used: 37 how long ago did patient quit smokin years ago second hand exposure: No alcohol intake: never substance use type: does not use caffeine: Yes Type: carbonated beverages Number of servings: 2 and coffee Number of servings: 2 eating out: 1-3 times/week during the past year weight has: increased > 10 lbs lizette/zoroastrian: [employer]aritan seatbelt use: always do you feel safe at home: Yes ROS ROS Narrative Admission Review of Systems: CONSTITUTIONAL: No weight loss, + fever, chills, weakness or fatigue. HEENT: Eyes: No visual loss, blurred vision, double vision or yellow sclerae. Ears, Nose, Throat: No hearing loss, sneezing, congestion, runny nose or sore throat. SKIN: No rash or itching, lesions, wounds. CARDIOVASCULAR: No chest pain, chest pressure or chest discomfort, palpitations, edema, orthopnea, syncopal events. RESPIRATORY: + Cough, No shortness of breath, productive sputum, wheezing, hemoptysis. GASTROINTESTINAL: + Anorexia, nausea, vomiting, diarrhea, No abdominal pain, melena, BRBPR. GENITOURINARY: No dysuria, frequency, urgency or retention. NEUROLOGICAL: No headache, dizziness, syncope, paralysis, ataxia, numbness or tingling in the extremities, focal weakness, change in bowel or bladder control, seizure. MUSCULOSKELETAL: + muscle, back pain, joint pain or stiffness. HEMATOLOGIC: + anemia, bleeding or bruising. LYMPHATICS: No enlarged nodes. No history of splenectomy. PSYCHIATRIC: + history of depression or anxiety. ENDOCRINOLOGIC: No reports of sweating, cold or heat intolerance. No polyuria or polydipsia. ALLERGIES: + history of asthma, hives, eczema or rhinitis. Vital Signs Vital Signs Vital Signs: 12/17/21 20:00 12/17/21 20:47 Temperature 98.6 F Temperature Source Oral Pulse Rate 140 H 144 H Respiratory Rate 18 Blood Pressure 108/88 H Blood Pressure Mean 94 Blood Pressure Source Monitor Blood Pressure Position Semi-Fowlers Blood Pressure Location Right Arm Pulse Ox 98 Oxygen Delivery Method Nasal Cannula Oxygen Flow Rate (L/min) 3 Weight Weight: 142 lb 6.698 oz Body Mass Index (BMI) 24.4 Physical Exam Narrative Physical Examination: General: Awake, alert, oriented x 3 and cooperative, seated upright in the PCU bed, fatigued, no acute distress. Skin: Normal color, normal turgor, no icterus, no cyanosis. HEENT: AT/NC, EOMI, PERRLA, mildly dry MM, no carotid bruits or JVD noted. Lungs: Diminished bilaterally, greater bases, mildly increased respiratory rate but no distress, no rales, ronchi or wheezing. Heart: Irregular irregular; no gallop, rub audible. Abdomen: Soft, NTTP, ND, mildly hyperactive BS, no HSM. Extremities: No cyanosis, clubbing, or edema. Neurological: Patient awake, alert, oriented as noted, cognitive function intact; pupils equally reactive to light and accommodation, cranial nerves II- XII grossly normal, moving all 4 extremities, no focal deficits, strength moderately to severely global decreased. Psychiatric: Affect appears flat, fatigued, no acute evidence of depressive or anxiety feelings. Assessment & Plan Assessment/Plan (1) Atrial fibrillation with RVR: PLAN: Plan The patient is a 61 y/o F w/ PMHx: CAD s/p PCI, Diabetes mellitus type II, RLS, COPD, Anxiety and Depression, GERD, Former tobacco use, Hx DVT, Chronic normocytic anemia, COPD, SCLC Stage IV with brain metastasis, history of diagnosis of COVID 2 weeks prior to current presentation with concern for superimposed bacterial pneumonia with reportedly antibiotics initiated at that time with initially reported, fever, chills, cough, nausea, emesis and diarrhea all of which have since resolved she notes but ongoing fatigue and malaise prompting family to request ED evaluation. #1. New onset, Paroxsymal atrial fibrillation complicated by hypotension likely iatrogenic from outside facility rate regimen administration: EKG in ED at outside facility w/ atrial fibrillation w/ RVR. Will admit to PCU, maintain on telemetry, obtain cardiac enzyme serial set, obtain magnesium level, obtain ECHO as noted most recent 10/20/20 echocardiogram with mild segmental systolic dysfunction, EF 50%, mild MVI, mild TVI, mild focal AV calcification, RVSP 44 mmHg with no evidence of diastolic dysfunction, obtain TSH level. We will very cautiously initiate heparin drip without any bolus given underlying history #3 given concern for pulmonary emboli with recent diagnosis of COVID as potential etiology for new onset A. fib with plan for de-escalation off if CTPA is unremarkable as patient is high risk. #2. Recent Acute Viral Syndrome, COVID-19: Given timeline 9 days, stable on home recent 3L NC, will continue 10 day COVID precautions timeline only, will maintain on chronic oxygen, PRN albuterol, HOB, IS, will obtain trop, ferritin, CRP, procalcitonin, LDH and BNP, continue supportive care including q 2 hour turning including prone given no prone bed availability and judicious hydration, closely monitor for worsening status for ARDS and multiorgan failure, patient already on decadron chronically as noted. Given timeline not appropriate antiviral candidate. Given new onset PAF with RVR with recent COVID with underlying metastatic CA with prior hx DVT already, high risk for PE, CTPA ordered. Cautiously maintain on heparin drip without bolus pending imaging with de-escalation off if negative. #3. SCLC Stage IV with brain metastasis: Patient with ongoing brain radiation for palliative and symptom control, most recent imaging with MRI 11/23/2021 with numerous extensive small to moderate sized rounded metastatic lesions throughout bilateral hemispheres, splenic lobes and right side of the midbrain as well as throughout the bilateral cerebellar lobes, mildly hemorrhagic metastatic tumor in the posterior aspect of the parietal lobe on the left which is stable from prior MRI 11/01/2021, metastatic lesions in the brain parenchyma to the apex of the skull. We will continue patient Decadron for vasogenic edema. #4. CAD: s/p PCI LAD, continue home statin, beta-lexa as able pending BP trending, lisinopril, not on aspirin/Plavix likely secondary to metastatic brain disease with mildly hemorrhagic metastatic tumor in the posterior aspect of the parietal lobe although this is remained stable on imaging. #5. Diabetes mellitus type II: Hold oral home regimen, hold Trulicity, ADA diet, accu checks w/ ISS. #6. Hypertension: BP low at outside facility likely secondary to medications administered for PAF with RVR at outside ED, will cautiously continue beta- lexa and lisinopril with hold parameters as needed, currently maintained on amiodarone for acute presentation as noted #1, transition to oral agents as able. #7. Hyperlipidemia: We will continue patient home atorvastatin. #8. Chronic COPD with chronic hypoxic respiratory failure (3 L NC): Will maintain home oxygen supplementation, continue home inhalers, PRN albuterol, HOB, IS parameters. #9. Chronic normocytic anemia/AOCD: Patient with underlying significantly metastatic cancer, admission hemoglobin from outside facility 9.8, prior baseline 7-9, continue to trend. #10. Depression and anxiety: We will continue patient home Prozac, BuSpar. #11. GERD: Continue patient on PPI. #12. DVT Prophylaxis: SCDs, heparin drip cautiously given SCLC Stage IV with brain metastasis. #13. CODE status: Full Code, confirmed with skilled facility. Charges/Coding Visit Charges Inpatient E&M: 68556 Init Hosp L3
[2021-12-17] MEDS: 0.9% Saline Lock 10 ML Syringe IV ×2 (22:07→22:27)
[2021-12-17] MEDS: 0.9% Normal Saline 1,000 ML 40 ML IV (22:07)
[2021-12-17] MEDS: Amiodarone 360 MG in Dextrose 5% Viaflo Bag 192.8 ML 33.3 MG CONT INF (22:36)
[2021-12-17 22:52] LABS: International Normalized Ratio 1.1; Prothrombin Time (Protime)PT. 14.1 SECONDS (11.7-14.9)
[2021-12-17 22:53] LABS: Partial Thromboplast Time 28.5 Seconds (24.1-36.2)
[2021-12-17 23:01] LABS: BNP,B-Type NATRIURETIC PEPTIDE 258.4 pg/mL (0-100)
[2021-12-17 23:04] LABS: D-Dimer Quantitative (DVT/PE) 1.98 FEU/ug/m (0.27-0.49); Phosphorus 3.5 mg/dL (2.5-4.9)
--- NOTE | 2021-12-17 23:04 | NURSING ---
Pts primary rn aware of d dimer result of 1.98.
[2021-12-17 23:09] LABS: Procalcitonin 0.94 ng/mL (0.00-0.09)
[2021-12-17] MEDS: dexAMETHasone 4 MG Tablet PO (23:16)
[2021-12-17] MEDS: Metoprolol Tartrate 50 MG Tablet PO (23:16)
[2021-12-17] MEDS: busPIRone 15 MG TABLET 7.5 MG PO (23:16)
[2021-12-17] MEDS: HEPARIN/D5w 25,000 UNITS 25,000 UNITS/250 ML IV.SOLN. 10 UNITS CONT INF (23:17)
[2021-12-17 23:26] LABS: Ferritin 2905 ng/mL (8-252); LDH 221 U/L (84-246); Magnesium 1.6 mg/dL (1.6-2.6); Thyroid Stim Hormone (TSH) 0.04 uIU/mL (0.358-3.74)
[2021-12-18] VITALS (17 sets, daily range): BP systolic 89–103; BP diastolic 52–62; PULSE 60–77; RESP 14–22; TEMP 36.3–36.7; O2SAT 90–99
--- NOTE | 2021-12-18 00:02 | NURSING ---
This RN called pt's daughter Kat, pt okay to give daughter updates. Spoke w/ Kat on the phone, gave her update about the pt and told her pt has her mobile phone in the room if wants to call pt directly. Kat's thankful and will call back to check again.
--- NOTE | 2021-12-18 00:12 | EKG12_ITS ---
Test Reason : AFIB CONVERT Blood Pressure : / mmHG Vent. Rate : 067 BPM Atrial Rate : 067 BPM P-R Int : 144 ms QRS Dur : 100 ms QT Int : 432 ms P-R-T Axes : 057 -56 051 degrees QTc Int : 456 ms Normal sinus rhythm Left axis deviation Septal infarct , age undetermined Abnormal ECG Confirmed by MYLES KAN, BROCK ([id number]), editor managing director JOSE GUADALUPE ALLEN ([id number]) on 12/22/2021 8:34:24 AM Referred By: Max Gaspar Confirmed By:BROCK BUENO MD
[2021-12-18 01:12] LABS: Troponin-I HS 17 pg/mL (3.0-54.0)
[2021-12-18 01:53] LABS: Troponin-I HS 21 pg/mL (3.0-54.0)
[2021-12-18 04:22] LABS: Absolute Neutrophil Count 13.7 X10^3/uL (2.0-7.7); Hematocrit 25.4 % (37-47); Mean Corp Hgb Conc 31.5 g/dL (32-36); Mean Corpuscular Hgb 31.9 pg (27.0-32.0); Mean Corpuscular Volume 101.2 fL (81-99); Mean Platelet Vol. 10.3 fl (6.2-12.0); NRBC Flagged by Analyzer 0 % (0-5); POSITIVE COUNT YES; POSITIVE DIFFERENTIAL YES; POSITIVE MORPHOLOGY YES; Platelet Count 89 K/mm3 (150-450); RBC Distribution Width CV 18.3 % (11.6-14.6); RBC Distribution Width SD 68.6 fl (35.1-43.9); Red Blood Count 2.51 M/mm3 (4.2-5.4); White Blood Count 14.8 K/mm3 (4.4-11.0)
[2021-12-18 04:24] LABS: Partial Thromboplast Time 39.1 Seconds (24.1-36.2)
[2021-12-18 04:29] LABS: Differential Indicated SCAN CRITERIA MET
[2021-12-18 04:48] LABS: Troponin-I HS 17 pg/mL (3.0-54.0)
[2021-12-18 05:02] LABS: ALB/GLOB Ratio 0.5 RATIO (0.9-2.4); AST(SGOT) 29 U/L (15-37); Alanine Aminotransfer ALT/SGPT 25 U/L (13-56); Albumin, Serum 1.8 g/dL (3.2-5.0); Alkaline Phosphatase 44 U/L (45-117); Anion Gap 7 (5-15); BUN 18 mg/dL (7-18); BUN/Creat Ratio 27.5 RATIO (10-20); Calcium,Total 8.2 mg/dL (8.5-10.1); Chloride 104 mmol/L (98-107); Creatinine, Serum 0.66 mg/dL (0.55-1.02); EST Glomerular Filtration Rate 97 mL/min (>60); Est Glom Filt Rate - Afr Amer 117 mL/min (>60); Estimated Creatinine Clearance 75.34 ml/min; Globulin 3.8 g/dL (2.2-4.2); Glucose 160 mg/dL (74-106); Potassium 4.2 mmol/L (3.5-5.1); Protein, Total 5.6 g/dL (6.4-8.2); Sodium Level 133 mmol/L (136-145); T4 Free Direct 1.28 ng/dL (0.76-1.46)
[2021-12-18 05:30] LABS: Scan Smear per Review Criteria MANUAL DIFF
[2021-12-18 05:37] LABS: Lymphocyte 7 % (19-41); Metamyelocyte 3 % (0-1); Monocyte 1 % (0-10); Myelocyte 1 % (0-0); Neutrophil-Band 1 % (0-5); Neutrophil-Segmented 86 % (47-70); Promyelocyte 1 % (0-0); Total Cells Counted 100 (MANUAL DIFF)
[2021-12-18 05:39] LABS: Absolute Lymphocyte Count 1.04 X10^3/uL (0.83-4.51); Lymphocyte # 1.04 X10^3/ul (0.83-4.51); Neutrophil # 13.65 X10^3/uL (2.7-7.7)
[2021-12-18 05:41] LABS: Platelet Estimate MOD DEC (ADEQ)
[2021-12-18 05:42] LABS: Ovalocyte RARE
[2021-12-18] MEDS: busPIRone 15 MG TABLET 7.5 MG PO ×2 (06:33→14:25)
[2021-12-18] MEDS: Heparin Injection 5,000 UNITS/ML Syringe 5000 UNITS SC (06:47)
[2021-12-18 06:50] LABS: Bedside Glucose 142 mg/dL (74-106)
[2021-12-18] MEDS: Budesonide Respules 0.5 MG/2 ML AMPUL.NEB. INHALATION (07:33)
[2021-12-18] MEDS: Albuterol 2.5 MG/3 ML VIAL.NEB. INHALATION ×2 (07:33→12:42)
--- NOTE | 2021-12-18 08:36 | PCM.PN.HOSP ---
Objective Data Objective Data Vital Signs: Vital Signs Temp Pulse Resp BP Pulse Ox O2 Del Method O2 Flow Rate 97.4 F L 60 14 100/56 L 98 Nasal Cannula 3 12/18/21 06:42 12/18/21 07:23 12/18/21 06:42 12/18/21 06:42 12/18/21 06:42 12/18/21 06:42 12/18/21 06:42 Oxygen Flow Rate (L/min) 3 Oxygen Delivery Method Nasal Cannula Weight: 144 lb 13.499 oz Body Mass Index (BMI) 24.4 Intake & Output: Intake and Output for Last 24 Hours 12/16/21 12/17/21 12/18/21 23:59 23:59 23:59 Intake Total 390.31 / 406.96 204.85 / 204.85 Output Total 0 / 0 Balance 390.31 / 406.96 204.85 / 204.85 Lab / Micro Data Result Diagrams: 12/18/21 04:00 12/18/21 04:00 Labs: Laboratory Results - last 24 hr 12/17/21 22:19: PT 14.1, INR 1.1, APTT 28.5, D-Dimer Quant (PE/DVT) 1.98 H* 12/17/21 22:19: Magnesium 1.6, Ferritin 2905 H, Lactate Dehydrogenase 221, C-React Prot Ext Range 147.00 H, TSH 0.04 L 12/17/21 22:19: Phosphorus 3.5 12/17/21 22:19: B-Natriuretic Peptide 258.4 H 12/17/21 22:20: Procalcitonin 0.94 H 12/17/21 22:20: Troponin I High Sens 17 12/18/21 00:05: Troponin I High Sens 21 12/18/21 04:00: WBC 14.8 H, RBC 2.51 L, Hgb 8.0 L, Hct 25.4 L, MCV 101.2 H, MCH 31.9, MCHC 31.5 L, RDW Std Deviation 68.6 H, RDW Coeff of [place] 18.3 H, Plt Count 89 L, MPV 10.3, Immature Gran % (Auto) SERVICE OFFICER, Neut % (Auto) SERVICE OFFICER, Lymph % (Auto) SERVICE OFFICER, [place] % (Auto) SERVICE OFFICER, Eos % (Auto) SERVICE OFFICER, Baso % (Auto) SERVICE OFFICER, Absolute Neuts (auto) 13.7 H, Absolute Lymphs (auto) 1.04, Total Counted 100, Neutrophils % (Manual) 86 H, Band Neutrophils % 1, Lymphocytes % (Manual) 7 L, Monocytes % (Manual) 1, Metamyelocytes % 3 H, Myelocytes % 1 H, Promyelocytes % 1 H, Nucleated RBC % 0, Diff Path Review May foll, Platelet Estimate MOD DEC, Ovalocytes RARE 12/18/21 04:00: Sodium 133 L, Potassium 4.2, Chloride 104, Carbon Dioxide 22.0, Anion Gap 7, BUN 18, Creatinine 0.66, Estim Creat Clear Calc 75.34, Est GFR (MDRD) Af Amer 117, Est GFR (MDRD) Non-Af 97, BUN/Creatinine Ratio 27.5 H, Glucose 160 H, Calcium 8.2 L, Total Bilirubin 0.30, AST 29, ALT 25, Alkaline Phosphatase 44 L, Total Protein 5.6 L, Albumin 1.8 L, Globulin 3.8, Albumin/Globulin Ratio 0.5 L 12/18/21 04:00: APTT 39.1 H 12/18/21 04:00: Troponin I High Sens 17 12/18/21 04:00: Free T4 1.28 12/18/21 06:31: POC Glucose 142 H Micro: Microbiology 12/17/21 Unknown Nasal Secretion SARS-CoV-2 Antigen (Rapid) - Final SARS-CoV-2 (COVID 19) Radiography Diagnostic Testing: Radiology Impression Chest CTA 12/17/21 21:06 IMPRESSION: 1. No CTA demonstrated pulmonary embolism or arterial dissection. 2. Extensive mediastinal and right-sided hilar lymphadenopathy consistent with known metastatic lung cancer. 3. There is dense right middle lobe airspace disease and may be secondary to additional malignancy and/or postobstructive atelectasis. 4. Scattered areas of groundglass attenuation and are nodularity throughout both lungs suggestive of metastatic disease or additional infection. Assessment & Plan Assessment/Plan (1) Atrial fibrillation with RVR: PLAN: Plan The patient is a 61 y/o F with multiple comorbidities including recent diagnosis of COVID with superimposed suspected bacterial in pneumonia, that has been resolved. w/ PMHx: CAD s/p PCI, Diabetes mellitus type II, RLS, COPD, Anxiety and Depression, GERD, Former tobacco use, Hx DVT, Chronic normocytic anemia, COPD, SCLC Stage IV with brain metastasis, history of diagnosis of COVID 2 weeks prior to current presentation with concern for superimposed bacterial pneumonia with reportedly antibiotics initiated at that time with initially reported, fever, chills, cough, nausea, emesis and diarrhea all of which have since resolved she notes but ongoing fatigue and malaise prompting family to request ED evaluation. #1. New onset, Paroxsymal atrial fibrillation complicated by hypotension l: [place] [facility] [place] There patient was managed with Lopressor and Cardizem. 2D echo is ordered. Last echo 10/20/20 e with mild segmental systolic dysfunction, EF 50%, mild MVI, mild TVI, mild focal AV calcification, RVSP 44 mmHg with no evidence of diastolic dysfunction, obtain TSH level. Started on heparin drip. #2. Recent Acute Viral Syndrome, COVID-19: Patient on COVID precaution for 10 more days since admission. CTA chest was done which was negative for PE or arterial dissection. Labs were ordered. #3. SCLC Stage IV with brain metastasis: Patient with ongoing brain radiation for palliative and symptom control, most recent imaging with MRI 11/23/2021 with numerous extensive small to moderate sized rounded metastatic lesions throughout bilateral hemispheres, splenic lobes and right side of the midbrain as well as throughout the bilateral cerebellar lobes, mildly hemorrhagic metastatic tumor in the posterior aspect of the parietal lobe on the left which is stable from prior MRI 11/01/2021, metastatic lesions in the brain parenchyma to the apex of the skull. Plan CTA shows dense middle lobe airspace disease may secondary to additional malignancy/postobstructive atelectasis. Scattered area of groundglass attenuation and nodularity throughout both lungs suggestive of metastatic disease. Continue Decadron. #4. CAD: s/p PCI LAD, continue home statin, beta-lexa , lisinopril, not on aspirin/Plavix likely secondary to metastatic brain disease with mildly hemorrhagic metastatic tumor in the posterior aspect of the parietal lobe although this is remained stable on imaging. ? 1. acute metabolic encephalopathy anemia #5. Diabetes mellitus type II: Hold oral home regimen, hold Trulicity, ADA diet, accu checks w/ ISS. #6. Hypertension: BP low at outside facility likely secondary to medications administered for PAF with RVR at outside ED, will cautiously continue beta-lexa and lisinopril with hold parameters as needed, currently maintained on amiodarone for acute presentation as noted #1, transition to oral agents as able. #7. Hyperlipidemia: We will continue patient home atorvastatin. #8. COPD with chronic hypoxic respiratory failure (3 L NC): Will maintain home oxygen supplementation, continue home inhalers, PRN albuterol, HOB, IS parameters. #9. Chronic normocytic anemia/AOCD: Patient with underlying significantly metastatic cancer, admission hemoglobin from outside facility 9.8, prior baseline 7-9, continue to trend. #10. Depression and anxiety: We will continue patient home Prozac, BuSpar. #11. GERD: Continue patient on PPI. #12. DVT Prophylaxis: SCDs, heparin drip cautiously given SCLC Stage IV with brain metastasis. #13. CODE status: Full Code, confirmed with skilled facility.
[2021-12-18] MEDS: Pantoprazole Sodium 40 MG Tablet PO (09:20)
[2021-12-18] MEDS: Sodium Chloride 1 GM Tablet PO (09:20)
[2021-12-18] MEDS: FLUoxetine 20 MG Capsule 60 MG PO (09:20)
[2021-12-18] MEDS: dexAMETHasone 4 MG Tablet PO (09:20)
[2021-12-18] MEDS: Potassium Chloride Oral Tablet 20 MEQ 40 MEQ PO (09:20)
--- NOTE | 2021-12-18 11:28 | DCINST_ITS ---
Discharge Instructions Diet Discharge Diet: 1800 Calorie Control Diet and 2000 mg Sodium Diet Activity Discharge Activity: May Not Drive Dressing / Incision Call your doctor if you observe: Fever of 101 or Higher, Coldness, Increased Pain, Numbness or Tingling, Change in Color, Inability to urinate, Inability to have a bowel movement, Using more than 1 pad per hour, Shortness of breath, Dizziness, Fainting spells, Swelling in the ankles, Chest pain, Prolonged hiccupping, Increased palpitations (irregular heartbeat), Calf discomfort and Uncontrolled pain Follow Up Care Test Results: Test results from this visit will be discussed in further detail at your follow- up appointment, if applicable. Discharge Plan Admission Admit Date/Time: 12/17/21 20:35 Primary Reason for Your Visit: A. fib with RVR Attending Provider: Kalyan Hirsch Primary Care Provider: Sarah Duarte Consulting Providers: Emilee Mclean Instructions Additional Instructions / Restrictions: Dose is reduced because of anemia and thrombocytopenia. Patient new onset A. fib with recent COVID and metastatic lung cancer but at the same time she is high risk of bleeding Consider increasing 5 mg twice daily if she tolerates or anemia and thrombocytopenia improved Discharge Orders/Prescriptions Prescriptions: New Eliquis 2.5 mg tablet 2.5 mg PO BID Qty: 60 0RF Rx Instructions: Dose is reduced because of anemia and thrombocytopenia. New onset A. fib with recent COVID and metastatic lung cancer but at the same time she is high risk of bleeding Consider increasing 5 mg twice daily if she tolerates or anemia and thrombocytopenia improved No Action lidocaine-prilocaine 2.5-2.5 % cream 1 applic topical ONCE PRN (Reason: Port access ) 30 Days Qty: 30 2RF fluoxetine 20 mg capsule 60 mg PO DAILY 90 Days Qty: 270 2RF lisinopril 10 mg tablet 10 mg PO DAILY Qty: 90 1RF ondansetron 8 mg tablet,disintegrating 8 mg PO Q8H PRN (Reason: nausea and vomiting) Qty: 30 2RF buspirone 15 mg Tablet 7.5 mg PO TID Qty: 0 0RF insulin lispro [Humalog KwikPen Insulin] 100 unit/mL Insulin Pen 6 unit subcut 0800,1200,1700 Qty: 0 0RF insulin glargine-yfgn 100 unit/mL (3 mL) Insulin Pen 20 unit subcut BREAKFAST Qty: 0 0RF acetaminophen [Tylenol] 325 mg Tablet 650 mg PO Q6H PRN PRN (Reason: Pain Score 1-10/Temp > 100.7 F) Qty: 0 0RF albuterol sulfate 2.5 mg /3 mL (0.083 %) Solution For Nebulization 2.5 mg inhalation Q6HWA.RT Qty: 0 0RF potassium chloride [Klor-Con M20] 20 mEq Tablet,Er Particles/Crystals 40 meq PO BREAKFAST Qty: 0 0RF metoprolol tartrate 50 mg Tablet 50 mg PO BID Qty: 0 0RF budesonide 0.5 mg/2 mL Suspension For Nebulization 0.5 mg inhalation Q12H.RT Qty: 0 0RF cyclobenzaprine 5 mg Tablet 5 mg PO TID PRN (Reason: Muscle Spasm) Qty: 0 0RF sodium chloride 1,000 mg Tablet,Soluble 1 g PO DAILY Qty: 0 0RF Ensure Enlive 0.08 gram-1.5 kcal/mL Liquid 120 ml PO 4X/DAY Qty: 0 0RF oxycodone 5 mg Tablet 5 mg PO Q4H PRN PRN (Reason: Pain, Moderate) 7 Days Qty: 12 0RF furosemide 40 mg Tablet 40 mg PO DAILY Qty: 0 0RF dexamethasone 4 mg tablet 4 mg PO BID Qty: 14 0RF guaifenesin [Mucinex] 600 mg Tablet Extended Release 12hr 600 mg PO BID atorvastatin 40 mg tablet 40 mg PO QHS Qty: 90 3RF pantoprazole 20 mg tablet,delayed release (DR/EC) 40 mg PO DAILY Qty: 90 1RF Referrals / Follow Up: Sarah Duarte MD [Primary Care Provider] - Timo Rivera MD [STAFF PHYSICIAN] - Within 1 Month (new onset afib) Craig Pretty MD [STAFF PHYSICIAN] - Within 1 Month (For lung cancer, COPD) Max Gaspar MD [NON-STAFF] - Within 1 Month (For metastatic lung cancer to brain) Disposition Disposition (needs filled in before D/C Order can be placed): Home, Self Care
[2021-12-18 12:06] LABS: Bedside Glucose 165 mg/dL (74-106)
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
--- NOTE | 2021-12-18 14:02 | DS.PCM_ITS ---
Providers Date of Admission: 12/17/21 Date of Discharge: 12/18/21 Primary Care Physician: Dr. Sarah Duarte MD Reason For Visit: COVID 19, NEW ONSET AF WITH RVR Diagnosis Discharge Diagnosis (1) Atrial fibrillation with RVR: Status: Acute Code(s): I48.91 - Unspecified atrial fibrillation Medications at Discharge Home Medications lidocaine-prilocaine 2.5 %-2.5 % topical cream 1 applic topical ONCE PRN Port access 30 days #30 grams 10/19/20 atorvastatin 40 mg tablet 40 mg PO QHS cholesterol #90 tabs 02/10/21 ondansetron 8 mg disintegrating tablet 8 mg PO Q8H PRN nausea and vomiting #30 tabs 06/08/21 fluoxetine 20 mg capsule 60 mg PO DAILY Check with primary doctor 3 months #270 caps 06/21/21 lisinopril 10 mg tablet 10 mg PO DAILY BLOOD PRESSURE #90 tabs 06/21/21 pantoprazole 20 mg tablet,delayed release 40 mg PO DAILY gerd #90 tabs 09/02/21 acetaminophen 325 mg tablet (Tylenol) 650 mg PO Q6H PRN PRN Pain Score 1-10/Temp > 100.7 F #0 tabs 11/29/21 albuterol sulfate 2.5 mg (3 mL) inhalation Q6HWA.RT #0 mL 11/29/21 budesonide 0.5 mg/2 mL suspension for nebulization 0.5 mg (2 mL) inhalation Q12H.RT #0 mL 11/29/21 buspirone 15 mg tablet 7.5 mg PO TID #0 tabs 11/29/21 cyclobenzaprine 5 mg tablet 5 mg PO TID PRN Muscle Spasm #0 tabs 11/29/21 dexamethasone 4 mg tablet 4 mg PO BID #14 tabs 11/29/21 food supplemt, lactose-reduced 0.08 gram-1.5 kcal/mL oral liquid (Ensure Enlive) 120 ml PO 4X/DAY #0 mL 11/29/21 furosemide 40 mg tablet 40 mg PO DAILY #0 tabs 11/29/21 insulin glargine-yfgn 100 unit/mL (3 mL) subcutaneous pen 20 unit (0.2 mL) subcut BREAKFAST #0 mL 11/29/21 insulin lispro 100 unit/mL subcutaneous pen (Humalog KwikPen (U-100) Insulin) 6 unit (0.06 mL) subcut 0800,1200,1700 #0 mL 11/29/21 metoprolol tartrate 50 mg tablet 50 mg PO BID #0 tabs 11/29/21 oxycodone 5 mg tablet 5 mg PO Q4H PRN PRN Pain, Moderate 7 days #12 tabs 11/29/21 potassium chloride 20 mEq tablet,extended release(part/cryst) (Klor-Con M) 40 meq PO BREAKFAST #0 tabs 11/29/21 sodium chloride 1,000 mg soluble tablet 1 g PO DAILY #0 tabs 11/29/21 apixaban 2.5 mg tablet (Eliquis) 2.5 mg PO BID #60 tabs 12/18/21 guaifenesin 600 mg tablet, extended release 12 hr (Mucinex) 600 mg PO BID Check with primary doctor 12/18/21 Hospital Course Summary of Care Provided Hospital Course: The patient is a 61 y/o F with multiple comorbidities including recent diagnosis of COVID with superimposed suspected bacterial in pneumonia, treated with antibiotic that has been resolved was admitted from [facility] for A. fib with RVR, new onset. #1. New onset, Paroxsymal atrial fibrillation complicated by hypotension : EKG in ED at [facility] shows atrial fibrillation with RVR. There patient was managed with Lopressor and Cardizem. Subsequently patient converted to sinu s rhythm. Patient is on metoprolol 50 mg p.o. twice daily and heart rate is in 70s, normal sinus rhythm. 2D echo is pending. Usually, dose of Eliquis is 5 mg p.o. twice daily for A. fib but dose is decreased to 2.5 mg twice daily for anemia, hemoglobin 8.0 and platelet count 89,000. Previous. Hemoglobin is 9.8 g and platelet count 211,000. Consider increasing to 500 twice daily if anemia and thrombocytopenia improves. Patient has new onset A. fib with recent COVID- 19 and metastatic lung cancer therefore hypercoagulable disorder but at the same time she is high risk of bleeding because of anemia and thrombocytopenia. Last echo 10/20/20 reported with mild segmental systolic dysfunction, EF 50%, mild MVI, mild TVI, mild focal AV calcification, RVSP 44 mmHg with no evidence of diastolic dysfunction, obtain TSH level. Started on heparin drip. #2. Recent Acute Viral Syndrome, COVID-19: Patient on COVID precaution for 10 more days since admission. CTA chest was done which was negative for PE or arterial dissection. Patient has elevated inflammatory markers, expected from COVID-19 infection. Patient does not have increased hypoxia, dyspnea, change in cough or sputum production characteristic. Patient is already on dexamethasone for brain metastasis. Continued. Continue Mucinex. Educated about incentive spirometry and Pep #3. SCLC Stage IV with brain metastasis: Patient with ongoing brain radiation for palliative and symptom control, most recent imaging with MRI 11/23/2021 with numerous extensive small to moderate sized rounded metastatic lesions throughout bilateral hemispheres, splenic lobes and right side of the midbrain as well as throughout the bilateral cerebellar lobes, mildly hemorrhagic metastatic tumor in the posterior aspect of the parietal lobe on the left which is stable from prior MRI 11/01/2021, metastatic lesions in the brain parenchyma to the apex of the skull. Plan CTA shows dense middle lobe airspace disease may secondary to additional malignancy/postobstructive atelectasis. Scattered area of groundglass attenuation and nodularity throughout both lungs suggestive of metastatic disease. Continue Decadron. Follow-up with Dr. Pretty. Patient recently completed antibiotic in [facility]. She was also treated with antibiotic in [facility] during previous admission, Macrobid and also completed 1 week of antibiotic in [facility]. No fever or suspected new infection therefore no indication of repeat antibiotic. Serology test from 420 shows positive Enterobacter and Proteus probably recent infection from UTI during previous admission in November 2021. #4. CAD: s/p PCI LAD, continue home statin, beta-lexa , lisinopril, not on aspirin/Plavix likely secondary to metastatic brain disease with mildly hemorrhagic metastatic tumor in the posterior aspect of the parietal lobe although this is remained stable on imaging. ? #5. Diabetes mellitus type 2: Continue home regimen. 6. Hypertension: Patient usually has low blood pressure in systolic 80s. Currently no symptoms. 7. COPD with chronic hypoxic respiratory failure on 3 L of oxygen. Patient did well and currently on baseline 2 to 3-4 oxygen. Home qualification oxygen shows patient is 90% on 2 L of oxygen on ambulation and 96% on 2 L of oxygen at rest. #9.? Chronic normocytic anemia/AOCD: Patient with underlying significantly metastatic cancer, admission hemoglobin from outside facility 9.8, patient usually has baseline hemoglobin runs between 8 to 9 g%. Rest as mentioned above. #10.? Depression and anxiety:continue patient home Prozac, BuSpar. #11.? GERD: Continue patient on PPI. #12.? DVT Prophylaxis: SCDs, heparin drip cautiously given SCLC Stage IV with brain metastasis. #13.? CODE status: Full Code, confirmed with skilled facility. Patient was evaluated by PT AND OT and is good for home discharge. Discharge medication reconciliation done. Discharge follow-up instructions completed. Discharge process discussed with the patient and all questions were answered to patient's satisfaction. Total time spent, exact 35 minutes on discharge meds reconciliation, examination, coordination of care with nurses and ancillary staff, review of i maging and blood test and discussion with the patient on follow-up instructions. Microbiology Past 72 Hours 12/17/21 Unknown Nasal Secretion SARS-CoV-2 Antigen (Rapid) - Final SARS-CoV-2 (COVID 19) Laboratory Results 12/17/21 22:19: PT 14.1, INR 1.1, APTT 28.5, D-Dimer Quant (PE/DVT) 1.98 H* 12/17/21 22:19: Magnesium 1.6, Ferritin 2905 H, Lactate Dehydrogenase 221, C- React Prot Ext Range 147.00 H, TSH 0.04 L 12/17/21 22:19: Phosphorus 3.5 12/17/21 22:19: B-Natriuretic Peptide 258.4 H 12/17/21 22:20: Procalcitonin 0.94 H 12/17/21 22:20: Troponin I High Sens 17 12/18/21 00:05: Troponin I High Sens 21 12/18/21 04:00: WBC 14.8 H, RBC 2.51 L, Hgb 8.0 L, Hct 25.4 L, MCV 101.2 H, MCH 31.9, MCHC 31.5 L, RDW Std Deviation 68.6 H, RDW Coeff of Lashonda 18.3 H, Plt Count 89 L, MPV 10.3, Immature Gran % (Auto) NET SOLUTIONS ARCHITECT, Neut % (Auto) NET SOLUTIONS ARCHITECT, Lymph % (Auto) NET SOLUTIONS ARCHITECT, Saunders % (Auto) NET SOLUTIONS ARCHITECT, Eos % (Auto) NET SOLUTIONS ARCHITECT, Baso % (Auto) NET SOLUTIONS ARCHITECT, Absolute Neuts (auto) 13.7 H, Absolute Lymphs (auto) 1.04, Total Counted 100, Neutrophils % (Manual) 86 H, Band Neutrophils % 1, Lymphocytes % (Manual) 7 L, Monocytes % (Manual) 1, Metamyelocytes % 3 H, Myelocytes % 1 H, Promyelocytes % 1 H, Nucleated RBC % 0, Diff Path Review May foll, Platelet Estimate MOD DEC, Ovalocytes RARE 12/18/21 04:00: Sodium 133 L, Potassium 4.2, Chloride 104, Carbon Dioxide 22.0, Anion Gap 7, BUN 18, Creatinine 0.66, Estim Creat Clear Calc 75.34, Est GFR (MDRD) Af Amer 117, Est GFR (MDRD) Non-Af 97, BUN/Creatinine Ratio 27.5 H, Glucose 160 H, Calcium 8.2 L, Total Bilirubin 0.30, AST 29, ALT 25, Alkaline Phosphatase 44 L, Total Protein 5.6 L, Albumin 1.8 L, Globulin 3.8, Albumin/Globulin Ratio 0.5 L 12/18/21 04:00: APTT 39.1 H 12/18/21 04:00: Troponin I High Sens 17 12/18/21 04:00: Free T4 1.28 12/18/21 06:31: POC Glucose 142 H 12/18/21 11:28: POC Glucose 165 H Physical Exam Narrative Seen and examined Patient has [id number] near the bedside. Patient has history of metastatic lung cancer and has radiation to the brain, follows with Dr. Gaspar. Patient also has longstanding COPD and is on nebu lization and chronic home oxygen 2 to 3 L/min, follows Dr. Pretty. Patient has been in [facility] for about 3 weeks. Patient was recently in the hospital and discharged on 11/29/2021 after she was admitted for generalized weakness and mental status change most likely due to UTI. In [facility], 1 day before admission she was lethargic, mild confused as per the [id number]. She also diagnosed with positive COVID-19 without any new symptoms in [facility] about 12 days ago. She has chronic cough, shortness of breath on exertion, generalized weakness due to history of COPD and lung cancer as mentioned above. Subsequently she developed secondary superimposed bacterial pneumonia. Denies fever. Patient completed antibiotic for UTI and pneumonia in [facility]. Patient does not have increased shortness of breath, change in characteristic of cough or sputum production or fever, weakness now. She is awake and alert. General: Alert, Oriented x3, Cooperative, BMI 24.9 kg per metered square, and COVID-19 isolation per HEENT: Atraumatic, PERRLA, EOMI, Normocephalic Oral: No Gingival or Mucosal Lesions/ Ulcerations Neck: Supple, No JVD, Negative Carotid Bruits Lungs: Air entry severely diminished in both lungs. No rhonchi or crepitations. Cardiovascular: Regular rate, Regular Rhythm, Normal S1, Normal S2, No murmurs Abdomen: Bowel Sounds Present, Soft, Non Tender, Non-Distended : No renal angle tenderness. No suprapubic tenderness. Extremities: No edema, Capillary Refill Less than 3 Seconds Skin: No rashes, No breakdown Musculoskeletal: No Tenderness to Palpation of Joints or Extremities Neurological: Cranial nerves II-XII grossly intact, DTR 2+/4, muscle strength 4/5 at major joints. Psych/Mental Status: Normal Affect, Appropriate. Medical Records Data Medical Nutrition Assessment Dietitian: Malnutrition Criteria Met Start: 12/18/21 10:46 Freq: Status: Active Protocol: Document 12/18/21 10:46 [facility] (Rec: 12/18/21 10:46 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 Status Active Problem Recommendation Dietitian Recommendations/Changes Will continue liberal Regular diet d/t signs and symptoms of malnutrition Will d/c ensure enlive w/ medpass per pt preference and provide 8 oz CIB w/ meals instead. Weight / BMI Weight Weight: 144 lb 13.499 oz Body Mass Index (BMI) 24.4 ABG / Lab / Microbiology Data Result Diagrams: 12/18/21 04:00 12/18/21 04:00 Laboratory: Laboratory Results - last 24 hr 12/17/21 22:19: PT 14.1, INR 1.1, APTT 28.5, D-Dimer Quant (PE/DVT) 1.98 H* 12/17/21 22:19: Magnesium 1.6, Ferritin 2905 H, Lactate Dehydrogenase 221, C- React Prot Ext Range 147.00 H, TSH 0.04 L 12/17/21 22:19: Phosphorus 3.5 12/17/21 22:19: B-Natriuretic Peptide 258.4 H 12/17/21 22:20: Procalcitonin 0.94 H 12/17/21 22:20: Troponin I High Sens 17 12/18/21 00:05: Troponin I High Sens 21 12/18/21 04:00: WBC 14.8 H, RBC 2.51 L, Hgb 8.0 L, Hct 25.4 L, MCV 101.2 H, MCH 31.9, MCHC 31.5 L, RDW Std Deviation 68.6 H, RDW Coeff of Lashonda 18.3 H, Plt Count 89 L, MPV 10.3, Immature Gran % (Auto) NET SOLUTIONS ARCHITECT, Neut % (Auto) NET SOLUTIONS ARCHITECT, Lymph % (Auto) NET SOLUTIONS ARCHITECT, Saunders % (Auto) NET SOLUTIONS ARCHITECT, Eos % (Auto) NET SOLUTIONS ARCHITECT, Baso % (Auto) NET SOLUTIONS ARCHITECT, Absolute Neuts (auto) 13.7 H, Absolute Lymphs (auto) 1.04, Total Counted 100, Neutrophils % (Manual) 86 H, Band Neutrophils % 1, Lymphocytes % (Manual) 7 L, Monocytes % (Manual) 1, Metamyelocytes % 3 H, Myelocytes % 1 H, Promyelocytes % 1 H, Nucleated RBC % 0, Diff Path Review May foll, Platelet Estimate MOD DEC, Ovalocytes RARE 12/18/21 04:00: Sodium 133 L, Potassium 4.2, Chloride 104, Carbon Dioxide 22.0, Anion Gap 7, BUN 18, Creatinine 0.66, Estim Creat Clear Calc 75.34, Est GFR (MDRD) Af Amer 117, Est GFR (MDRD) Non-Af 97, BUN/Creatinine Ratio 27.5 H, Glucose 160 H, Calcium 8.2 L, Total Bilirubin 0.30, AST 29, ALT 25, Alkaline Phosphatase 44 L, Total Protein 5.6 L, Albumin 1.8 L, Globulin 3.8, Albumin/Globulin Ratio 0.5 L 12/18/21 04:00: APTT 39.1 H 12/18/21 04:00: Troponin I High Sens 17 12/18/21 04:00: Free T4 1.28 12/18/21 06:31: POC Glucose 142 H Microbiology: Microbiology 12/17/21 Unknown Nasal Secretion SARS-CoV-2 Antigen (Rapid) - Final SARS-CoV-2 (COVID 19) Radiography Diagnostic Testing: Radiology Impression Chest CTA 12/17/21 21:06 IMPRESSION: 1. No CTA demonstrated pulmonary embolism or arterial dissection. 2. Extensive mediastinal and right-sided hilar lymphadenopathy consistent with known metastatic lung cancer. 3. There is dense right middle lobe airspace disease and may be secondary to additional malignancy and/or postobstructive atelectasis. 4. Scattered areas of groundglass attenuation and are nodularity throughout both lungs suggestive of metastatic disease or additional infection. Electronically Signed: Shannan Bonds MD at 0:18 EDT Reading Location ID and State: [address] [place] [address] , Service support , Meaningful Use Info Meaningful Use Diagnoses (Choose all that apply): None applicable Discharge Plan Admission Admit Date/Time: 12/17/21 20:35 Primary Reason for Your Visit: A. fib with RVR Attending Provider: Kalyan Hirsch Primary Care Provider: Sarah Duarte Consulting Providers: Emilee Mclean Instructions Additional Instructions / Restrictions: Dose is reduced because of anemia and thrombocytopenia. Patient new onset A. fib with recent COVID and metastatic lung cancer but at the same time she is high risk of bleeding Consider increasing 5 mg twice daily if she tolerates or anemia and thrombocytopenia improved Discharge Orders/Prescriptions Prescriptions: New Eliquis 2.5 mg tablet 2.5 mg PO BID Qty: 60 0RF Rx Instructions: Dose is reduced because of anemia and thrombocytopenia. New onset A. fib with recent COVID and metastatic lung cancer but at the same time she is high risk of bleeding Consider increasing 5 mg twice daily if she tolerates or anemia and thrombocytopenia improved No Action lidocaine-prilocaine 2.5-2.5 % cream 1 applic topical ONCE PRN (Reason: Port access ) 30 Days Qty: 30 2RF fluoxetine 20 mg capsule 60 mg PO DAILY 90 Days Qty: 270 2RF lisinopril 10 mg tablet 10 mg PO DAILY Qty: 90 1RF ondansetron 8 mg tablet,disintegrating 8 mg PO Q8H PRN (Reason: nausea and vomiting) Qty: 30 2RF buspirone 15 mg Tablet 7.5 mg PO TID Qty: 0 0RF insulin lispro [Humalog KwikPen Insulin] 100 unit/mL Insulin Pen 6 unit subcut 0800,1200,1700 Qty: 0 0RF insulin glargine-yfgn 100 unit/mL (3 mL) Insulin Pen 20 unit subcut BREAKFAST Qty: 0 0RF acetaminophen [Tylenol] 325 mg Tablet 650 mg PO Q6H PRN PRN (Reason: Pain Score 1-10/Temp > 100.7 F) Qty: 0 0RF albuterol sulfate 2.5 mg /3 mL (0.083 %) Solution For Nebulization 2.5 mg inhalation Q6HWA.RT Qty: 0 0RF potassium chloride [Klor-Con M20] 20 mEq Tablet,Er Particles/Crystals 40 meq PO BREAKFAST Qty: 0 0RF metoprolol tartrate 50 mg Tablet 50 mg PO BID Qty: 0 0RF budesonide 0.5 mg/2 mL Suspension For Nebulization 0.5 mg inhalation Q12H.RT Qty: 0 0RF cyclobenzaprine 5 mg Tablet 5 mg PO TID PRN (Reason: Muscle Spasm) Qty: 0 0RF sodium chloride 1,000 mg Tablet,Soluble 1 g PO DAILY Qty: 0 0RF Ensure Enlive 0.08 gram-1.5 kcal/mL Liquid 120 ml PO 4X/DAY Qty: 0 0RF oxycodone 5 mg Tablet 5 mg PO Q4H PRN PRN (Reason: Pain, Moderate) 7 Days Qty: 12 0RF furosemide 40 mg Tablet 40 mg PO DAILY Qty: 0 0RF dexamethasone 4 mg tablet 4 mg PO BID Qty: 14 0RF guaifenesin [Mucinex] 600 mg Tablet Extended Release 12hr 600 mg PO BID atorvastatin 40 mg tablet 40 mg PO QHS Qty: 90 3RF pantoprazole 20 mg tablet,delayed release (DR/EC) 40 mg PO DAILY Qty: 90 1RF Referrals / Follow Up: Sukhwinder,Craig, MD [STAFF PHYSICIAN] - Within 1 Month (For lung cancer, COPD) Sarah Duarte MD [Primary Care Provider] - Max Gaspar MD [NON-STAFF] - Within 1 Month (For metastatic lung cancer to brain) Timo Rivera MD [STAFF PHYSICIAN] - Within 1 Month (new onset afib) Disposition Disposition (needs filled in before D/C Order can be placed): Home, Self Care Charges/Coding Addendum Addendum: Patient was admitted as inpatient but was discharged because of sooner recovery than expected at time of admission. Visit Charges Inpatient E&M: 76896 Disch Hosp
[2021-12-21 15:20] LABS: Pathologist Review Reviewed
== END 2021-12-18 16:00 | disposition home or self-care (01) | DRG 201 ==
PROVIDERS: Family Medicine; Admitting Provider Internal Medicine; PCP Internal Medicine; Visit Provider Internal Medicine
DX: I48.0 Paroxysmal atrial fibrillation (principal); G93.6 Cerebral edema; I95.89 Other hypotension; U07.1 COVID-19; J96.11 Chronic respiratory failure with hypoxia; C34.2 Malignant neoplasm of middle lobe, bronchus or lung; C79.31 Secondary malignant neoplasm of brain; D69.6 Thrombocytopenia, unspecified; J44.0 Chronic obstructive pulmonary disease with (acute) lower respiratory infection; I11.0 Hypertensive heart disease with heart failure; E11.9 Type 2 diabetes mellitus without complications; I50.9 Heart failure, unspecified; Z79.4 Long term (current) use of insulin; K21.9 Gastro-esophageal reflux disease without esophagitis; E78.5 Hyperlipidemia, unspecified; I25.10 Atherosclerotic heart disease of native coronary artery without angina pectoris; G25.81 Restless legs syndrome; I25.2 Old myocardial infarction; F32.A Depression, unspecified; Z79.51 Long term (current) use of inhaled steroids; Z92.3 Personal history of irradiation; Z86.718 Personal history of other venous thrombosis and embolism; Z87.891 Personal history of nicotine dependence; Z99.81 Dependence on supplemental oxygen; Z95.5 Presence of coronary angioplasty implant and graft
CPT/HCPCS: 36415; 71275; 80053; 82728; 82962; 83615; 83735; 83880; 84100; 84145; 84439; 84443; 84484; 85025; 85379; 85610; 85730; 86140; 87040; 87811; 93005; 94640; 97162; 97802; J7030; J7040; Q9967; A4216

== ENCOUNTER 2021-12-31 07:45 | Outpatient (CLI) | payer MEDICAID, SELFPAY ==
--- NOTE | 2021-12-31 15:41 | SP.MBSS_ITS ---
Modified Barium Swallow - Patient Information Study Date: 12/31/21 Study Time: 12:30 Direct Billable Minutes: 100 Total Minutes procedure & reportin Diagnosis: Dysphagia, unspecified (R13.10), COPD (J44.1) Referring Physician: Robson Wallace Reason for Referral: Objectively assess swallow function, risk for aspiration, and determine recommendations for least restrictive diet textures and compensatory strategies to improve safety of swallow. Medical History: PMH from Radiation Oncology Progress Note 12/27/2021: Heather Sinha is a 61-year- old female diagnosed with extensive stage small cell lung cancer (T2b?T3, N2, M1) status post chest CTA (07/24/2020), CT chest with contrast (09/04/2020), MRI brain (09/25/2020), PET scan (10/13/2020), and evaluation by medical oncology (10/15/2020).? 4 cycles of cisplatin/etoposide/Durvalumab (completed 01/12/2021), maintenance Durvalumab (01/12/2021 ? 05/11/2021), second line therapy with carboplatin/irinotecan due to progressive disease (06/08/2021).? She was admitted 11/22/2021 for increased confusion and MRI completed 11/23/2021 demonstrated evidence for numerous brain metastases.? From 11/25/2021 ? 12/08/2021 she received whole brain radiation therapy. Her son, Bradley, was present for the evaluation and stated that she has had increased difficulty swallowing in the past two years; however, recently the swallowing trouble has worsened. Per pt, she will cough when consuming foods and drinks. She also will get the sensation that food or drink is caught chest level. At times, she will regurgitate foods. She requires extended time to take medications (17 daily). Other significant PMH includes CHF, COPD, cough, DVT, GERD, hiatal hernia, HTN, injury of the head and neck, MS, oxygen dependent, PNA, DM Type II (SEE EMR for full PMH). Current Diet Ordered: Soft solids / Thin liquids Dentition: Upper Dentures Mental Status: WNL Respiratory Status: Oxygenating on 3L/M nasal cannula - Penetration-Aspiration Scale Penetration-Aspiration Scale: OBJECTIVE ASSESSMENT OF SWALLOW FUNCTION (QUANTITATIVE ? PER TRIAL): PENETRATION / ASPIRATION SCALE (MENENDEZ): 1 = does not enter airway 2 = enters airway/above vocal folds/ejected 3 = enters airway/above vocal folds/not ejected 4 = enters airway/contacts vocal folds/ejected 5 = enters airway/contacts vocal folds/not ejected 6 = enters airway/below vocal folds/ejected 7 = enters airway/below vocal folds/not ejected despite effort 8 = enters airway/below vocal folds/no effort VIDEOFLOROSCOPIC SCALE SCORE (MENENDEZ): Grade I = aspiration of material that has penetrated into the laryngeal vestibule, intact cough reflex Grade II = aspiration < 10 % of the bolus, intact cough reflex Grade III = aspiration of < 10 % of the bolus, reduced cough reflex or aspiration of > 10 % of the bolus, intact cough reflex Grade IV = aspiration of > 10 % of the bolus, reduced cough reflex - Penetration-Aspiration Scale Score Thin Liquid via teaspoon Result: 5= enters airways/contacts vocal folds/not ejected Thin Liquid via teaspoon Trial 2 Result: 1= does not enter airway Thin Liquid via small single sip from cup Result: 5= enters airways/contacts vocal folds/not ejected Thin Liquid via small single sip from cup Effortful swallow Result: 3= enters airways/above vocal folds/not ejected Thin Liquid via small single sip from cup Effortful swallow Trial 2 Result: 1= does not enter airway [place] Thick Liquid via small single sip from cup Result: 1= does not enter airway Honey Thick Liquid via small single sip from cup Result: 1= does not enter airway Pudding via teaspoon with esophageal screen Result: 1= does not enter airway Cookie Result: 1= does not enter airway Thin Liquid via single sip from straw Result: 5= enters airways/contacts vocal folds/not ejected Thin Liquid via small single sip from cup Effortful swallow Trial 3 Result: 3= enters airways/above vocal folds/not ejected [place] Thick Liquid via small single sip from cup Trial 2 Result: 2= enter airway/above vocal folds/ejected - Oral Phase Labial Seal: No Labial Escape Tongue Control During Bolus Hold: Posterior escape of less than half of bolus Bolus Preparation/Mastication: Disorganized chewing/mashing with solid pieces of bolus unchewed - Piecemeal deglutition of cookie. Unchewed pieces in oral cavity after initial swallow; however, with continued chewing she adequately mashed the cookie. Bolus Transport/Lingual Motion: Slowed tongue motion Oral Residue: Residue collection on oral structures - Pharyngeal Phase Initiation of Pharyngeal Swallow: Bolus head in valleculae Soft Palate Elevation: No bolus between soft palate and pharyngeal wall Laryngeal Elevation: Partial superior movement thyroid cart/partial apprx aryt- epig petiole Anterior Hyoid Excursion: Complete anterior movement Epiglottic Movement: Complete inversion Laryngeal Vestibule Closure at Height of Swallow: Incomplete; narrow column of air/contrast in laryngeal vestibule Pharyngeal Stripping Wave: Present - complete Pharyngoesophageal Segment Opening: Complete distension and complete duration; no obstruction of flow Tongue Base Retraction: Narrow column of contrast between tongue base & post. pharyngeal wall Pharyngeal Residue: Collection of residue within or on pharyngeal structures - Esophageal Phase Esophageal Clearance: Complete clearance - Treatment Strategies Effects of treatment strategies attemped:: Decreased bolus size = somewhat effective. Effortful swallow = somewhat effective. - Diagnosis/Impression Diagnosis: Mild-moderate oropharyngeal phase dysphagia (R13.12) Impression: The oral phase is primarily marked by: -Decreased mastication abilities requiring extended time to adequately chew regular textured cookie. -Slowed tongue motion for A-P transport. -Piecemeal deglutition, especially observed with cookie. The pharyngeal phase is primarily marked by: -Decreased airway closure during the swallow due to decreased laryngeal elevation. -Decreased base of tongue retraction with mild residues in the vallecula after the swallow. -Laryngeal penetration of thin liquids via cup, tsp, and straw to the vocal folds without ejection. She is at high risk to aspirate after the swallow due to contrast remaining in the laryngeal vestibule. No aspiration observed during the study. - Recommendations Diet: [place]-thick Liquids - Easy to Chew textures (IDDSI Level 7) Comment: [place] Free Water Protocol, crush medications as able and take with pudding/yogurt/applesauce Compensatory Strategies: Small Bites, Small Sips - Intermittent cough and re- swallow, especially if wet vocal quality, Slow Rate, Sitting upright, Remain sitting upright for 30 minutes after PO intake Supervision: Assist as needed Recommend Repeat Modified Barium Swallow: Yes - Repeat MBS study 3-5 weeks after implementation of oropharyngeal exercise program Need for Skilled Speech Therapy Services: Yes Comment: Will recommend the patient for outpatient dysphagia therapy to address deficits in oropharyngeal swallow function. Would consider the patient for oropharyngeal strengthening to improve mastication abilities, laryngeal elevation, and tongue base retraction. The patient would benefit from thorough education regarding diet recommendations and recommended compensatory strategies. Will recommend continued education re: [place] Free Water Protocol (FFWP) to encourage hydration and promote increased opportunities for swallowing throughout the day. Recommended Referrals: Dietitian Consult - Consider re-consult to the business loan processor due to little oral intake and weakness. Concerns for malnutrition. Education Completed: 1. Described result of evaluation., 2. Pt understands evaluation & agrees with goals and treatment plan., 4. Family/caregivers understand evaluation & agree w/ goals & tx plan., 7. Pt requires further educ ation on strategies & risks. - Status Active ST Patient: Active - Contact Information [facility]:: Freda Grissom M.A. [facility] Speech-Language Pathologist [facility] [address] [place] [address] [email or web address] [phone] 12/31/21 15:52
== END 2021-12-31 23:59 | disposition home or self-care (01) ==
LOC: RAD 02-04 07:45
PROVIDERS: PCP Internal Medicine; Referring Provider Student in an Organized Health Care Education/Training Program; Visit Provider Student in an Organized Health Care Education/Training Program
DX: R13.10 Dysphagia, unspecified (principal); Z45.2 Encounter for adjustment and management of vascular access device
CPT/HCPCS: 92611; 96523; A4216

== ENCOUNTER → 2021-12-31 | Outpatient (CLI) | payer MEDICAID, SELFPAY ==
--- NOTE | 2021-12-31 08:25 | MRI_ITS ---
EXAM: MR HEAD WITHOUT AND WITH INTRAVENOUS CONTRAST CLINICAL INDICATION: Confusion. Brain metastases. TECHNIQUE: Multiplanar and multisequence MR images of the brain were obtained without and with intravenous contrast. This report was created using [employer] report Flo Water technology. CONTRAST: 13 mL IV Dotarem. COMPARISON: MRI brain with and without contrast 11/23/2021. FINDINGS: BRAIN AND EXTRA-AXIAL SPACES: Marked decrease in size, surrounding edema and number of multiple enhancing brain metastatic mass lesions in both cerebral hemispheres and cerebellar hemispheres. Calcification in the left postcentral gyrus is unchanged. No intra- or extra-axial hemorrhage. No evidence of acute infarct. There is preservation of the condon/white matter interface. Basal cisterns are patent. SELLA: Unremarkable. Normal sella turcica, pituitary gland, infundibular stalk, optic chiasm and hypothalamus. AUDITORY SYSTEM: Unremarkable. The internal auditory canals are patent. BONES/JOINTS: Unremarkable. No discrete lytic or blastic abnormalities. SINUSES: Unremarkable as visualized. Clear. MASTOID AIR CELLS: Unremarkable as visualized. Clear. ORBITS: Unremarkable as visualized. Both globes, extraocular muscles, optic nerves and retrobulbar fat appear unremarkable. VASCULATURE: Unremarkable as visualized. Normal flow voids in the major intracranial circulation. MRI/Brain W/WO Contrast IMPRESSION: Decrease in size, number and surrounding vasogenic edema of multiple brain metastases in both cerebral hemispheres and cerebellar hemispheres when compared to 11/23/2021. Electronically Signed: Ernesto Rankin MD at 10:49 EDT ,
[2021-12-31] MEDS: 0.9% Saline Lock 10 ML Syringe IV (09:16)
== END | disposition home or self-care (01) ==
LOC: MRI 08:25
PROVIDERS: PCP Internal Medicine; Referring Provider Internal Medicine Medical Oncology; Visit Provider Internal Medicine Medical Oncology
DX: R13.10 Dysphagia, unspecified (principal); C79.31 Secondary malignant neoplasm of brain; C34.2 Malignant neoplasm of middle lobe, bronchus or lung; J44.9 Chronic obstructive pulmonary disease, unspecified; R41.0 Disorientation, unspecified
CPT/HCPCS: 70553; 74230; A9575; A4216

== ENCOUNTER 2022-01-03 17:25 | Inpatient (IN) | payer MEDICAID, SELFPAY ==
[2022-01-03] VITALS (14 sets, daily range): BP systolic 79–101; BP diastolic 51–65; PULSE 69–85; RESP 15–24; TEMP 36.3–37.1; O2SAT 92–100; BMI 24.4; BMI 22.9
--- NOTE | 2022-01-03 18:57 | EKG12_ITS ---
Test Reason : weakness Blood Pressure : / mmHG Vent. Rate : 072 BPM Atrial Rate : 072 BPM P-R Int : 156 ms QRS Dur : 096 ms QT Int : 430 ms P-R-T Axes : 069 -38 057 degrees QTc Int : 470 ms Normal sinus rhythm Left axis deviation Low voltage QRS Septal infarct (cited on or before 24-JUL-2020) Abnormal ECG Confirmed by MYLES KAN, BROCK ([id number]), editor house organ VERA MCKINNON ([id number]) on 01/04/2022 10:41:44 AM Referred By: Confirmed By:BROCK BUENO MD
--- NOTE | 2022-01-03 18:59 | EDS_ITS ---
HPI History of Present Illness Chief Complaint: Weakness Informant: patient and family Narrative Narrative: Here with son brought by EMS for evaluation increasing weakness today. Patient history of metastatic small cell lung cancer to the brain. She is followed by Dr. Gaspar. Discharged from [facility] facility a month ago after a 5-week stay, ambulates with a walker. Did well yesterday. Reports MRI done this past Monday that stable. Patient has been aspirating for the past week. Decreased p.o. intake. Reported a swallow study done yesterday that has plan for thickened liquid diet. Today when other family was checked on patient upon standing she is unstable was lightheaded. No syncopal episodes. No vomiting or diarrhea. Thinks her last choking episode was this morning. She is on chronic 3 L of oxygen. She denies any respiratory distress. She denies any dysuria. No fevers. Brought in arrival hypotensive in the 70s. She is started on IV fluids by nursing. Occasional cough. Denies any dysuria or frequency. Patient currently on dexamethasone twice a day. Last radiation was December 11. No current chemo. Denies any blood in the stools. Prior similar symptoms: Yes [facility] Medical History Anxiety Atherosclerosis of [place] coronary artery of [place] heart without angina pectoris Brain aneurysm Cancer Carcinoma, lung Cardiac dysrhythmia Cardiology follow-up encounter Congestive heart failure COPD (chronic obstructive pulmonary disease) Coronary artery disease Cough Depression Diarrhea Diarrhea due to drug DVT (deep venous thrombosis) Edema Electrolyte abnormality Encounter for chemotherapy management Encounter for immunotherapy Former smoker Gastric reflux GERD (gastroesophageal reflux disease) Hiatal hernia History of blood transfusion History of echocardiogram History of fatty infiltration of liver History of stress test Hyperlipidemia Hypertension Hypokalemia Hypomagnesemia Injury of head and neck Loose, teeth Low iron Lower extremity edema Myocardial infarct Normocytic anemia On home oxygen therapy Oxygen dependent Pneumonia Presence of stent in coronary artery (~05/2011) Restless legs Shortness of breath on exertion Sinus drainage Syncope Tremor Type II diabetes mellitus Urinary retention with incomplete bladder emptying Uses wheelchair Vertigo Wears partial dentures Home Medications lidocaine-prilocaine 2.5 %-2.5 % topical cream 1 applic topical ONCE PRN Port access 30 days #30 grams 10/19/20 [Rx Last Taken Unknown] atorvastatin 40 mg tablet 40 mg PO QHS cholesterol #90 tabs 08/25/21 [Rx Last Taken Unknown] ondansetron 8 mg disintegrating tablet 8 mg PO Q8H PRN nausea and vomiting #30 tabs 06/08/21 [Rx Last Taken 12/17/21 08:00] fluoxetine 20 mg capsule 60 mg PO DAILY Check with primary doctor 3 months #270 caps 06/21/21 [Rx Last Taken 11/22/21] lisinopril 10 mg tablet 10 mg PO DAILY BLOOD PRESSURE #90 tabs 06/21/21 [Rx Last Taken Unknown] pantoprazole 20 mg tablet,delayed release 40 mg PO DAILY gerd #90 tabs 09/02/21 [Rx Last Taken 11/22/21] acetaminophen 325 mg tablet (Tylenol) 650 mg PO Q6H PRN PRN Pain Score 1-10/Temp > 100.7 F #0 tabs 11/29/21 [Rx Last Taken Unknown] albuterol sulfate 2.5 mg/3 mL (0.083 %) solution for nebulization 2.5 mg (3 mL) inhalation Q6HWA.RT #0 mL 11/29/21 [Rx Last Taken 12/17/21 06:00] budesonide 0.5 mg/2 mL suspension for nebulization 0.5 mg (2 mL) inhalation Q12H.RT #0 mL 11/29/21 [Rx Last Taken 12/17/21 08:00] buspirone 15 mg tablet 7.5 mg PO TID #0 tabs 11/29/21 [Rx Last Taken Unknown] cyclobenzaprine 5 mg tablet 5 mg PO TID PRN Muscle Spasm #0 tabs 11/29/21 [Rx Last Taken Unknown] food supplemt, lactose-reduced 0.08 gram-1.5 kcal/mL oral liquid (Ensure Enlive) 120 ml PO 4X/DAY #0 mL 11/29/21 [Rx Last Taken Unknown] furosemide 40 mg tablet 40 mg PO DAILY #0 tabs 11/29/21 [Rx Last Taken Unknown] insulin glargine-yfgn 100 unit/mL (3 mL) subcutaneous pen 20 unit (0.2 mL) subcut BREAKFAST #0 mL 11/29/21 [Rx Last Taken 12/17/21 08:00] insulin lispro 100 unit/mL subcutaneous pen (Humalog KwikPen (U-100) Insulin) 6 unit (0.06 mL) subcut 0800,1200,1700 #0 mL 11/29/21 [Rx Last Taken Unknown] metoprolol tartrate 50 mg tablet 50 mg PO BID #0 tabs 11/29/21 [Rx Last Taken 12/17/21 08:00] oxycodone 5 mg tablet 5 mg PO Q4H PRN PRN Pain, Moderate 7 days #12 tabs 11/29/21 [Rx Last Taken 12/17/21 08:00] potassium chloride 20 mEq tablet,extended release(part/cryst) (Klor-Con M) 40 meq PO BREAKFAST #0 tabs 11/29/21 [Rx Last Taken Unknown] sodium chloride 1,000 mg soluble tablet 1 g PO DAILY #0 tabs 11/29/21 [Rx Last Taken 12/17/21 08:00] apixaban 2.5 mg tablet (Eliquis) 2.5 mg PO BID #60 tabs 12/18/21 [Rx Last Taken Unknown] guaifenesin 600 mg tablet, extended release 12 hr (Mucinex) 600 mg PO BID Check with primary doctor 12/18/21 [History Last Taken 12/17/21 08:00] dexamethasone 4 mg tablet 4 mg PO BID #14 tabs 12/27/21 [Rx Last Taken Unknown] Allergy/AdvReac Type Severity Reaction Status Date / Time No Known Allergies Allergy Verified 01/03/22 17:25 Family History Father , Age 56 Myocardial infarction Heart disease COPD (chronic obstructive pulmonary disease) Mother COPD (chronic obstructive pulmonary disease) Heart disease Surgical History H/O arthroscopic knee surgery H/O elbow surgery History of cardiac catheterization History of carpal tunnel surgery History of cholecystectomy History of coronary artery stent placement History of lumbar surgery History of tubal ligation Hx of biopsy Presence of coronary angioplasty implant and graft Social History household members: spouse housing: house current occupational status: retired Smoking Status: Former smoker quit date: 06/19/13 pack-years: 35 Tobacco: How many years used: 37 how long ago did patient quit smokin years ago second hand exposure: No alcohol intake: never substance use type: does not use caffeine: Yes Type: carbonated beverages Number of servings: 2 and coffee Number of servings: 2 eating out: 1-3 times/week during the past year weight has: increased > 10 lbs lizette/faith: Sabianist seatbelt use: always do you feel safe at home: Yes ROS ROS ED Constitutional Constitutional ED: Denies chills, fever(s) or sweats Eyes Eyes: Denies change in vision ENT ENT ED: Denies dysphagia or sore throat Cardiovascular Cardiovascular: Denies chest pain, leg edema, palpitations or racing heartbeat Respiratory/Chest Respiratory/Chest: Denies cough, dyspnea or dyspnea on exertion Gastrointestinal Gastrointestinal: Denies abdominal pain, diarrhea, nausea or vomiting Genitourinary Genitourinary ED: Denies dysuria, hematuria or urinary frequency Musculoskeletal Musculoskeletal: Denies back pain, extremity pain or neck pain Integumentary Denies rash or wounds Neurologic Neurologic: Reports weakness; Denies headache(s) or paresthesias EXAM Physical Exam Const Vital Signs: 01/03/22 17:27 01/03/22 17:30 01/03/22 17:30 Temperature 97.3 F L Temperature Source Temporal Pulse Rate 71 Respiratory Rate 19 H Respiratory Effort Short of Breath Labored Respiratory Pattern Tachypnea Blood Pressure 82/60 L 79/51 L Blood Pressure Mean 67 60 Pulse Ox 97 Oxygen Delivery Method Nasal Cannula Oxygen Flow Rate (L/min) 3 01/03/22 17:32 01/03/22 18:54 01/03/22 19:07 Temperature 97.6 F L 98.8 F Temperature Source Temporal Temporal Pulse Rate 69 72 70 Respiratory Rate 20 H 15 19 H Respiratory Effort Respiratory Pattern Blood Pressure 79/51 L 101/60 94/60 Blood Pressure Mean 60 73 71 Pulse Ox 98 99 99 Oxygen Delivery Method Nasal Cannula Nasal Cannula Room Air Oxygen Flow Rate (L/min) 3 3 01/03/22 19:08 01/03/22 19:08 01/03/22 20:14 Temperature 98.8 F Temperature Source Oral Pulse Rate 71 Respiratory Rate 19 H Respiratory Effort Respiratory Pattern Blood Pressure 94/55 L Blood Pressure Mean 68 Pulse Ox 100 97 Oxygen Delivery Method Nasal Cannula Nasal Cannula Oxygen Flow Rate (L/min) 3 3 01/03/22 20:14 01/03/22 20:14 Temperature 97.7 F L 97.7 F L Temperature Source Oral Oral Pulse Rate 71 Respiratory Rate 19 H Respiratory Effort Respiratory Pattern Blood Pressure 94/55 L Blood Pressure Mean 68 Pulse Ox 97 Oxygen Delivery Method Nasal Cannula Oxygen Flow Rate (L/min) 3 Positive well nourished and well developed General Appearance ED: well developed and NAD HEENT Reports dry mucous membranes normocephalic and atraumatic Mouth ED: Yes dry mucous membranes Mouth: dry mucous membranes Eyes PERRL, EOMs intact bilaterally and conjunctivae normal General Eye ED: Yes normal appearance of both eyes Neck no lymphadenopathy and supple General: Negative for tenderness Chest Wall Chest: Negative for tenderness Resp normal respiratory effort and normal air movement Effort and Inspection: symmetric chest movement; Negative for respiratory distress Cardio regular rate, regular rhythm and no murmurs Peripheral Pulses: pulses 2+ throughout GI normal to inspection, nondistended, normoactive bowel sounds and non-tender Palpation: Negative for guarding or rebound tenderness present Back/Spine no CVA tenderness and no thoracic nor lumbar tenderness Extremity normal to inspection General Extremety ED: Negative for edema or tenderness General Extremity: Negative for edema Neuro oriented x3 and no sensory deficits noted Sensorium / Orientation: awake and alert Skin no rashes or lesions noted and no wounds MDM MDM MDM Narrative Medical decision making narrative: Patient afebrile however was hypotensive on arrival. Fluids were started. She is stable on 3 L of oxygen. Sepsis labs ordered due to hypotension. She is responding to IV fluids during my evaluation blood pressure in the 100s. Labs noted creatinine 1.28 up from 1.6 previously. Clinically dehydrated with acute kidney injury. White count 7.5 hemoglobin stable 8.7. Her lactic acid is normal. Chest x-ray 1 view reviewed by myself and read by radiology concerns for right lobe pneumonia. She has been aspirating therefore likely aspiration pneumonia. She is stable on 3 L of oxygen. Unasyn started for coverage for aspiration. Urine was negative. With aspiration pneumonia acute kidney injury with dehydration and hypotension which is responded to IV fluids I did discuss with hospitalist Dr. Lynch for admission to PCU. Lab Data Attestation: I reviewed the patient's lab results. Labs: Laboratory Results - last 24 hr 01/03/22 01/03/22 01/03/22 18:00 18:00 18:00 WBC 7.5 RBC 2.67 L Hgb 8.7 L Hct 26.9 L MCV 100.7 H MCH 32.6 H MCHC 32.3 RDW Std Deviation 71.0 H RDW Coeff of Lash[place] 19.4 H Plt Count 134 L MPV 11.0 Immature Gran % (Auto) 2.400 H Neut % (Auto) 85.8 H Lymph % (Auto) 8.8 L Mchen[place] % (Auto) 2.7 Eos % (Auto) 0.0 Baso % (Auto) 0.3 Absolute Neuts (auto) 6.5 Absolute Lymphs (auto) 0.66 L Nucleated RBC % 0 Platelet Estimate ADEQUATE RBC Morphology N CHROM Hypochromasia RARE Anisocytosis 1+ Macrocytosis 1+ PT 15.3 H INR 1.2 APTT 26.8 Sodium 134 L Potassium 5.2 H Chloride 100 Carbon Dioxide 25.0 Anion Gap 9 BUN 63 H Creatinine 1.28 H Estim Creat Clear Calc 38.85 Est GFR (MDRD) Af Amer 54 L Est GFR (MDRD) Non-Af 45 L BUN/Creatinine Ratio 49.2 H Glucose 160 H Lactic Acid Calcium 9.3 Total Bilirubin 0.50 AST 44 H ALT 25 Alkaline Phosphatase 65 Total Protein 7.2 Albumin 2.6 L Globulin 4.6 H Albumin/Globulin Ratio 0.6 L Urine Color Urine Clarity Urine pH Ur Specific [place] Urine Protein Urine Glucose (UA) Urine Ketones Urine Occult Blood Urine Nitrite Urine Bilirubin Urine Urobilinogen Ur Leukocyte Esterase Urine RBC Urine WBC Ur Squamous Epith Cells Urine Bacteria Urine Mucus 01/03/22 01/03/22 18:00 19:14 WBC RBC Hgb Hct MCV MCH MCHC RDW Std Deviation RDW Coeff of [place] Plt Count MPV Immature Gran % (Auto) Neut % (Auto) Lymph % (Auto) [place] % (Auto) Eos % (Auto) Baso % (Auto) Absolute Neuts (auto) Absolute Lymphs (auto) Nucleated RBC % Platelet Estimate RBC Morphology Hypochromasia Anisocytosis Macrocytosis PT INR APTT Sodium Potassium Chloride Carbon Dioxide Anion Gap BUN Creatinine Estim Creat Clear Calc Est GFR (MDRD) Af Amer Est GFR (MDRD) Non-Af BUN/Creatinine Ratio Glucose Lactic Acid 0.9 Calcium Total Bilirubin AST ALT Alkaline Phosphatase Total Protein Albumin Globulin Albumin/Globulin Ratio Urine Color Yellow Urine Clarity Clear Urine pH 6.0 Ur Specific [place] 1.015 Urine Protein Negative Urine Glucose (UA) Normal Urine Ketones Negative Urine Occult Blood Negative Urine Nitrite Negative Urine Bilirubin Negative Urine Urobilinogen Normal Ur Leukocyte Esterase Negative Urine RBC 0 SEEN Urine WBC 0 SEEN Ur Squamous Epith Cells 0 SEEN Urine Bacteria 0 SEEN Urine Mucus 0 SEEN Radiography Diagnostic Testing: Clinical Impression(s) from Imaging Studies Chest X-Ray 01/03/22 19:18 IMPRESSION: Right sided pneumonia. Electronically Signed: Adam Sheridan MD at 19:54 EDT , EKG Initial EKG: Attestation: I personally reviewed and interpreted this EKG as follows: Comments: Sinus rate of 72, no ST or T wave changes. QTc 470. Discharge Plan Dx/Rx/DC Orders Clinical Impression: 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, Aspiration pneumonia, Hypotension, Anemia, NADIYA (acute kidney injury) Disposition Disposition: Acute Care Hospital [facility] Discharge Date/Time: 01/03/22 22:16
[2022-01-03] MEDS: 0.9% Normal Saline 1,000 ML 999 ML IV ×3 (19:06→23:35)
[2022-01-03 19:12] LABS: Absolute Lymphocyte Count 0.66 X10^3/uL (0.83-4.51); Absolute Neutrophil Count 6.5 X10^3/uL (2.0-7.7); Basophil# 0.02 X10^3/uL; Basophil% 0.3 % (0-1); Hematocrit 26.9 % (37-47); Hemoglobin 8.7 g/dL (12.0-15.0); Lymphocyte # 0.66 X10^3/ul (0.83-4.51); Lymphocyte % 8.8 % (19-41); Mean Corp Hgb Conc 32.3 g/dL (32-36); Mean Corpuscular Hgb 32.6 pg (27.0-32.0); Mean Corpuscular Volume 100.7 fL (81-99); Monocyte% 2.7 % (0-10); NRBC Flagged by Analyzer 0 % (0-5); Neutrophil # 6.45 X10^3/uL (2.7-7.7); Neutrophil % 85.8 % (47-70); POSITIVE MORPHOLOGY YES; Platelet Count 134 K/mm3 (150-450); RBC Distribution Width CV 19.4 % (11.6-14.6); Red Blood Count 2.67 M/mm3 (4.2-5.4); White Blood Count 7.5 K/mm3 (4.4-11.0)
[2022-01-03 19:15] LABS: Differential Indicated SCAN CRITERIA MET
[2022-01-03 19:18] LABS: Bacteria 0 SEEN /hpf (None Seen); Mucous, Urine 0 SEEN /hpf (<or=2+); Red Blood Cells-Urine 0 SEEN /hpf (0-5); Squamous Epithelial Cells - UA 0 SEEN /hpf (5-10); White Blood Cells 0 SEEN /hpf (0-5)
--- NOTE | 2022-01-03 19:18 | RAD_ITS ---
STUDY: X-RAY CHEST REASON FOR EXAM: Female, 61 years old. cough TECHNIQUE: XR Chest 1 View COMPARISON: 11/22/2021 FINDINGS: There is a left Port-A-Cath and/or mediport in place. The tip is in the superior vena cava. . There is a right infiltrates. Kyphoplasty changes. Normal size heart. Normal mediastinum and melinda. Normal visualized pulmonary arteries. There is atherosclerotic calcification of the aortic arch with tortuosity. There are diffuse degenerative changes of the visualized thoracic spine. There is degenerative osteoarthritis of the bilateral shoulders. There is no demonstrated abnormality of the visualized soft tissue structures of the upper abdomen. RAD/Chest 1 View (Portable) IMPRESSION: Right sided pneumonia. Electronically Signed: Adam Sheridan MD at 19:54 EDT ,
[2022-01-03 19:26] LABS: International Normalized Ratio 1.2; Lactic Acid 0.9 mmol/L (0.4-1.9); Partial Thromboplast Time 26.8 Seconds (24.1-36.2); Prothrombin Time (Protime)PT. 15.3 SECONDS (11.7-14.9)
[2022-01-03 19:29] LABS: ALB/GLOB Ratio 0.6 RATIO (0.9-2.4); AST(SGOT) 44 U/L (15-37); Alanine Aminotransfer ALT/SGPT 25 U/L (13-56); Albumin, Serum 2.6 g/dL (3.2-5.0); Alkaline Phosphatase 65 U/L (45-117); Anion Gap 9 (5-15); BUN 63 mg/dL (7-18); BUN/Creat Ratio 49.2 RATIO (10-20); Calcium,Total 9.3 mg/dL (8.5-10.1); Chloride 100 mmol/L (98-107); Creatinine, Serum 1.28 mg/dL (0.55-1.02); EST Glomerular Filtration Rate 45 mL/min (>60); Est Glom Filt Rate - Afr Amer 54 mL/min (>60); Estimated Creatinine Clearance 38.85 ml/min; Globulin 4.6 g/dL (2.2-4.2); Glucose 160 mg/dL (74-106); Potassium 5.2 mmol/L (3.5-5.1); Protein, Total 7.2 g/dL (6.4-8.2); Sodium Level 134 mmol/L (136-145)
[2022-01-03] MEDS: 0.9% Normal Saline 1,000 ML 150 ML IV (19:43)
[2022-01-03 19:44] LABS: Color, Urine Yellow (Yellow); Glucose, Dipstick Normal (Normal); Ketone-Dipstick Negative (Negative); Leukocyte Esterase-Dipstick Negative /ul (Negative); Nitrite-Dipstick Negative (Negative); Occult Blood-Urine Negative /ul (Negative); Protein-Dipstick Negative (Negative); Specific Gravity, Urine 1.015 (1.002-1.030); Urine Bilirubin Dipstick Negative (Negative); Urine Clarity Clear (Clear); Urine Urobilinogen Normal (Normal)
[2022-01-03 20:12] LABS: Anisocytosis 1+; Hypochromasia RARE; Macrocytosis 1+; Platelet Estimate ADEQUATE (ADEQ); Red Cell Morphology N CHROM NORMAL (NORM C&C)
--- NOTE | 2022-01-03 20:37 | HP.PCM.HOS_ITS ---
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 On the day of presentation patient was too weak that she could not stand up. She fell while standing up but was caught by family. Associated for symptom is dysphagia. After the patient has poor appetite. At baseline she is on 2 L nasal cannula no change. She reports coughing. [facility] Medical History Anxiety Atherosclerosis of [place] coronary artery of [place] heart without angina pectoris Brain aneurysm Cancer Carcinoma, lung Cardiac dysrhythmia Cardiology follow-up encounter Congestive heart failure COPD (chronic obstructive pulmonary disease) Coronary artery disease Cough Depression Diarrhea Diarrhea due to drug DVT (deep venous thrombosis) Edema Electrolyte abnormality Encounter for chemotherapy management Encounter for immunotherapy Former smoker Gastric reflux GERD (gastroesophageal reflux disease) Hiatal hernia History of blood transfusion History of echocardiogram History of fatty infiltration of liver History of stress test Hyperlipidemia Hypertension Hypokalemia Hypomagnesemia Injury of head and neck Loose, teeth Low iron Lower extremity edema Myocardial infarct Normocytic anemia On home oxygen therapy Oxygen dependent Pneumonia Presence of stent in coronary artery (~05/2011) Restless legs Shortness of breath on exertion Sinus drainage Syncope Tremor Type II diabetes mellitus Urinary retention with incomplete bladder emptying Uses wheelchair Vertigo Wears partial dentures Home Medications lidocaine-prilocaine 2.5 %-2.5 % topical cream 1 applic topical ONCE PRN Port access 30 days #30 grams 10/19/20 [Rx Last Taken Unknown] atorvastatin 40 mg tablet 40 mg PO QHS cholesterol #90 tabs 02/10/21 [Rx Last Taken Unknown] ondansetron 8 mg disintegrating tablet 8 mg PO Q8H PRN nausea and vomiting #30 tabs 06/08/21 [Rx Last Taken 12/17/21 08:00] fluoxetine 20 mg capsule 60 mg PO DAILY Check with primary doctor 3 months #270 caps 06/21/21 [Rx Last Taken 11/22/21] lisinopril 10 mg tablet 10 mg PO DAILY BLOOD PRESSURE #90 tabs 06/21/21 [Rx Last Taken Unknown] pantoprazole 20 mg tablet,delayed release 40 mg PO DAILY gerd #90 tabs 09/02/21 [Rx Last Taken 11/22/21] acetaminophen 325 mg tablet (Tylenol) 650 mg PO Q6H PRN PRN Pain Score 1-10/Temp > 100.7 F #0 tabs 11/29/21 [Rx Last Taken Unknown] albuterol sulfate 2.5 mg/3 mL (0.083 %) solution for nebulization 2.5 mg (3 mL) inhalation Q6HWA.RT #0 mL 11/29/21 [Rx Last Taken 12/17/21 06:00] budesonide 0.5 mg/2 mL suspension for nebulization 0.5 mg (2 mL) inhalation Q12H.RT #0 mL 11/29/21 [Rx Last Taken 12/17/21 08:00] buspirone 15 mg tablet 7.5 mg PO TID #0 tabs 11/29/21 [Rx Last Taken Unknown] cyclobenzaprine 5 mg tablet 5 mg PO TID PRN Muscle Spasm #0 tabs 11/29/21 [Rx Last Taken Unknown] food supplemt, lactose-reduced 0.08 gram-1.5 kcal/mL oral liquid (Ensure Enlive) 120 ml PO 4X/DAY #0 mL 11/29/21 [Rx Last Taken Unknown] furosemide 40 mg tablet 40 mg PO DAILY #0 tabs 11/29/21 [Rx Last Taken Unknown] insulin glargine-yfgn 100 unit/mL (3 mL) subcutaneous pen 20 unit (0.2 mL) subcut BREAKFAST #0 mL 11/29/21 [Rx Last Taken 12/17/21 08:00] insulin lispro 100 unit/mL subcutaneous pen (Humalog KwikPen (U-100) Insulin) 6 unit (0.06 mL) subcut 0800,1200,1700 #0 mL 11/29/21 [Rx Last Taken Unknown] metoprolol tartrate 50 mg tablet 50 mg PO BID #0 tabs 11/29/21 [Rx Last Taken 12/17/21 08:00] oxycodone 5 mg tablet 5 mg PO Q4H PRN PRN Pain, Moderate 7 days #12 tabs 11/29/21 [Rx Last Taken 12/17/21 08:00] potassium chloride 20 mEq tablet,extended release(part/cryst) (Cristobalor-Con M) 40 meq PO BREAKFAST #0 tabs 11/29/21 [Rx Last Taken Unknown] sodium chloride 1,000 mg soluble tablet 1 g PO DAILY #0 tabs 11/29/21 [Rx Last Taken 12/17/21 08:00] apixaban 2.5 mg tablet (Eliquis) 2.5 mg PO BID #60 tabs 12/18/21 [Rx Last Taken Unknown] guaifenesin 600 mg tablet, extended release 12 hr (Mucinex) 600 mg PO BID Check with primary doctor 12/18/21 [History Last Taken 12/17/21 08:00] dexamethasone 4 mg tablet 4 mg PO BID #14 tabs 12/27/21 [Rx Last Taken Unknown] Allergy/AdvReac Type Severity Reaction Status Date / Time No Known Allergies Allergy Verified 01/03/22 17:25 Family History Father , Age 56 Myocardial infarction Heart disease COPD (chronic obstructive pulmonary disease) Mother COPD (chronic obstructive pulmonary disease) Heart disease Surgical History H/O arthroscopic knee surgery H/O elbow surgery History of cardiac catheterization History of carpal tunnel surgery History of cholecystectomy History of coronary artery stent placement History of lumbar surgery History of tubal ligation Hx of biopsy Presence of coronary angioplasty implant and graft Social History household members: spouse housing: house current occupational status: retired Smoking Status: Former smoker quit date: 06/19/13 pack-years: 35 Tobacco: How many years used: 37 how long ago did patient quit smokin years ago second hand exposure: No alcohol intake: never substance use type: does not use caffeine: Yes Type: carbonated beverages Number of servings: 2 and coffee Number of servings: 2 eating out: 1-3 times/week during the past year weight has: increased > 10 lbs lizette/restoration: Rastafarian seatbelt use: always do you feel safe at home: Yes ROS ROS Narrative Pertinent positives and pertinent negatives as noted in HPI. All other systems were reviewed and are negative. Vital Signs Vital Signs Vital Signs: 01/03/22 17:27 01/03/22 17:30 01/03/22 17:30 Temperature 97.3 F L Temperature Source Temporal Pulse Rate 71 Respiratory Rate 19 H Respiratory Effort Short of Breath Labored Respiratory Pattern Tachypnea Blood Pressure 82/60 L 79/51 L Blood Pressure Mean 67 60 Pulse Ox 97 Oxygen Delivery Method Nasal Cannula Oxygen Flow Rate (L/min) 3 01/03/22 17:32 01/03/22 18:54 01/03/22 19:07 Temperature 97.6 F L 98.8 F Temperature Source Temporal Temporal Pulse Rate 69 72 70 Respiratory Rate 20 H 15 19 H Respiratory Effort Respiratory Pattern Blood Pressure 79/51 L 101/60 94/60 Blood Pressure Mean 60 73 71 Pulse Ox 98 99 99 Oxygen Delivery Method Nasal Cannula Nasal Cannula Room Air Oxygen Flow Rate (L/min) 3 3 01/03/22 19:08 01/03/22 19:08 01/03/22 20:14 Temperature 98.8 F Temperature Source Oral Pulse Rate 71 Respiratory Rate 19 H Respiratory Effort Respiratory Pattern Blood Pressure 94/55 L Blood Pressure Mean 68 Pulse Ox 100 97 Oxygen Delivery Method Nasal Cannula Room Air Oxygen Flow Rate (L/min) 3 01/03/22 20:14 01/03/22 20:14 01/03/22 20:29 Temperature 97.7 F L 97.7 F L 97.7 F L Temperature Source Oral Oral Oral Pulse Rate 71 73 Respiratory Rate 19 H 20 H Respiratory Effort Respiratory Pattern Blood Pressure 94/55 L 94/55 L Blood Pressure Mean 68 68 Pulse Ox 97 97 Oxygen Delivery Method Room Air Room Air Oxygen Flow Rate (L/min) Weight Weight: 64.5 kg Body Mass Index (BMI) 24.4 Physical Exam Narrative Physical exam: General: Well-nourished, well-developed. Head: Normocephalic, atraumatic, no tenderness Eyes: Vision is grossly intact. EOMI ENT, no trauma, no rhinorrhea Neck: Nontender, full range of motion, no spinal tenderness, deformities, step- off CVS: Regular rate and rhythm. S1-S2 present. No murmur, gallop or rub. Respiratory : Wheezes and rhonchi at this posterior right middle and right base. Chest wall nontender. Abdomen: Soft, nontender, nondistended, normal bowel sounds, no masses : Deferred Back: Nontender, no CVA tenderness, no midline spinal tenderness, deformities, step-offs Extremities: Nontender full range of motion, no trauma Skin: Pale normal color, no trauma, abrasions Neuro: Alert, oriented, cranial nerves II through XII grossly intact. Psychiatry: Normal mood. Normal affect. Not depressed. Not anxious. Results Lab / Micro Data Result Diagrams: 01/03/22 18:00 01/03/22 18:00 Labs: Laboratory Results - last 24 hr 01/03/22 18:00: WBC 7.5, RBC 2.67 L, Hgb 8.7 L, Hct 26.9 L, MCV 100.7 H, MCH 32.6 H, MCHC 32.3, RDW Std Deviation 71.0 H, RDW Coeff of [place] 19.4 H, Plt Count 134 L, MPV 11.0, Immature Gran % (Auto) 2.400 H, Neut % (Auto) 85.8 H, Lymph % (Auto) 8.8 L, [place] % (Auto) 2.7, Eos % (Auto) 0.0, Baso % (Auto) 0.3, Absolute Neuts (auto) 6.5, Absolute Lymphs (auto) 0.66 L, Nucleated RBC % 0, Platelet Estimate ADEQUATE, RBC Morphology N CHROM, Hypochromasia RARE, Anisocytosis 1+, Macrocytosis 1+ 01/03/22 18:00: PT 15.3 H, INR 1.2, APTT 26.8 01/03/22 18:00: Sodium 134 L, Potassium 5.2 H, Chloride 100, Carbon Dioxide 25.0, Anion Gap 9, BUN 63 H, Creatinine 1.28 H, Estim Creat Clear Calc 38.85, Est GFR (MDRD) Af Amer 54 L, Est GFR (MDRD) Non-Af 45 L, BUN/Creatinine Ratio 49.2 H, Glucose 160 H, Calcium 9.3, Total Bilirubin 0.50, AST 44 H, ALT 25, Alkaline Phosphatase 65, Total Protein 7.2, Albumin 2.6 L, Globulin 4.6 H, Albumin/Globulin Ratio 0.6 L 01/03/22 18:00: Lactic Acid 0.9 01/03/22 19:14: Urine Color Yellow, Urine Clarity Clear, Urine pH 6.0, Ur Specific [place] 1.015, Urine Protein Negative, Urine Glucose (UA) Normal, Urine Ketones Negative, Urine Occult Blood Negative, Urine Nitrite Negative, Urine Bilirubin Negative, Urine Urobilinogen Normal, Ur Leukocyte Esterase Negative, Urine RBC 0 SEEN, Urine WBC 0 SEEN, Ur Squamous Epith Cells 0 SEEN, Urine Bacteria 0 SEEN, Urine Mucus 0 SEEN Radiology Impression Chest X-Ray 01/03/22 19:18 IMPRESSION: Right sided pneumonia. 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 Sepsis ruled out. CXR was visualized and independent interpreted. I agree with radiologist interpretation of right-sided pneumonia. With history of dysphagia and chest x-ray finding most likely patient has aspiration pneumonia. Received Unasyn in the emergency department and continued. Legionella antigen screen and Strep antigen ordered. Home albuterol inhalation continued. Home Mucinex continued. Tessalon Perles ordered. Sputum culture ordered. Hypotension Likely from volume contraction. Hold home blood pressure medications. Received normal saline bolus at emergency department and then will start at 150 MLS per hour. With persistent hypotension additional one liter bolus of normal saline ordered. Hold home Lasix. If patient remains hypotensive will admit intensive care unit. If blood pressure is stable patient will be admitted to progressive care unit and continued on gentle IV hydration. Monitor. Generalized weakness/ PT and OT to work with patient for strengthening and balance training. Case management consult NADIYA on CKD stage II/dehydration Her creatinine on presentation was 1.28. Her creatinine 2 weeks ago was 0.66. Baseline creatinine is about 0.76. BUN is 63. BUN is highest on hospital records of. BUN over creatinine is 49.2. Likely prerenal. Mild hyperkalemia with potassium of 5.2. CKD likely secondary to diabetes mellitus and hypertensive nephrosclerosis. Normal saline hydration as above. Hold Lasix. Avoid nephrotoxins. Trend CMP. Dysphagia Speech consult Dietary consult. Home supplementation of Ensure Enlive continued. Review of requested the patient had modified barium swallow on 12/31/2021. Recommendations were [place]-thick liquids; Easy to Chew textures. Continue diet requirements as above. Elevated liver enzymes AST is mild elevated at 44. ALT is normal. Trend CMP. Diabetes mellitus Patient with hyperglycemia on presentation but acceptable. De-escalate home basal insulin. Hold home prandial insulin. Monitor Accu-Cheks Correction scale insulin ordered. History of DVT/paroxysmal A. fib On home apixaban continued. Hold metoprolol for hypertension. EKG and telemetry showed sinus rhythm. DVT Prophylaxis Apixaban continued. Charges/Coding Visit Charges Inpatient E&M: 56247 Init Hosp L3
--- NOTE | 2022-01-03 21:31 | NURSING ---
hospitalist ordered 1L bolus infused and updated on BP before pt admission.
--- NOTE | 2022-01-03 22:16 | NURSING ---
1L bolus completed hospitalist updated on BP, Ok to send to PCU.
[2022-01-03] MEDS: Albuterol 2.5 MG/3 ML VIAL.NEB. INHALATION (22:44)
[2022-01-03] MEDS: Budesonide Respules 0.5 MG/2 ML AMPUL.NEB. INHALATION (22:44)
[2022-01-03] MEDS: dexAMETHasone 4 MG Tablet PO (23:54)
[2022-01-03] MEDS: busPIRone 15 MG TABLET 7.5 MG PO (23:54)
[2022-01-03] MEDS: APIXABAN 2.5 MG TABLET PO (23:55)
[2022-01-03] MEDS: Atorvastatin Calcium 40 MG Tablet PO (23:55)
[2022-01-03] MEDS: guaiFENesin 600 MG Tablet PO (23:55)
[2022-01-04] VITALS (14 sets, daily range): BP systolic 102–122; BP diastolic 49–84; PULSE 81–100; RESP 18–22; TEMP 36.1–36.8; O2SAT 92–100
[2022-01-04 00:46] LABS: Bedside Glucose 140 mg/dL (74-106)
[2022-01-04] MEDS: 0.9% Normal Saline 1,000 ML 100 ML IV (00:46)
[2022-01-04 05:15] LABS: Absolute Neutrophil Count 7.3 X10^3/uL (2.0-7.7); Basophil# 0.01 X10^3/uL; Basophil% 0.1 % (0-1); Hematocrit 24.5 % (37-47); Hemoglobin 7.8 g/dL (12.0-15.0); Lymphocyte % 7.1 % (19-41); Mean Corp Hgb Conc 31.8 g/dL (32-36); Mean Corpuscular Hgb 32.4 pg (27.0-32.0); Mean Corpuscular Volume 101.7 fL (81-99); Mean Platelet Vol. 10.4 fl (6.2-12.0); Monocyte# 0.38 X10^3/uL; Monocyte% 4.5 % (0-10); NRBC Flagged by Analyzer 0 % (0-5); Neutrophil # 7.26 X10^3/uL (2.7-7.7); Neutrophil % 86.5 % (47-70); POSITIVE DIFFERENTIAL YES; POSITIVE MORPHOLOGY YES; Platelet Count 116 K/mm3 (150-450); RBC Distribution Width CV 19.5 % (11.6-14.6); RBC Distribution Width SD 72.2 fl (35.1-43.9); Red Blood Count 2.41 M/mm3 (4.2-5.4); White Blood Count 8.4 K/mm3 (4.4-11.0)
[2022-01-04 05:20] LABS: Differential Indicated SCAN CRITERIA MET
[2022-01-04] MEDS: Albuterol 2.5 MG/3 ML VIAL.NEB. INHALATION ×4 (05:20→19:28)
[2022-01-04] MEDS: busPIRone 15 MG TABLET 7.5 MG PO ×3 (05:25→21:22)
[2022-01-04 05:41] LABS: ALB/GLOB Ratio 0.6 RATIO (0.9-2.4); AST(SGOT) 41 U/L (15-37); Alanine Aminotransfer ALT/SGPT 22 U/L (13-56); Albumin, Serum 2.4 g/dL (3.2-5.0); Alkaline Phosphatase 55 U/L (45-117); Anion Gap 10 (5-15); BUN 41 mg/dL (7-18); BUN/Creat Ratio 46.9 RATIO (10-20); Calcium,Total 8.5 mg/dL (8.5-10.1); Chloride 107 mmol/L (98-107); Creatinine, Serum 0.87 mg/dL (0.55-1.02); EST Glomerular Filtration Rate 69 mL/min (>60); Est Glom Filt Rate - Afr Amer 84 mL/min (>60); Estimated Creatinine Clearance 57.15 ml/min; Globulin 3.9 g/dL (2.2-4.2); Glucose 126 mg/dL (74-106); Potassium 4.5 mmol/L (3.5-5.1); Protein, Total 6.3 g/dL (6.4-8.2); Sodium Level 140 mmol/L (136-145)
[2022-01-04 05:44] LABS: Anisocytosis 1+; Differential Comment SCANNED
[2022-01-04 05:45] LABS: Macrocytosis 1+
--- NOTE | 2022-01-04 06:27 | PCM.PN.BLA ---
Progress Note Nurse reports increased work of breathing; audible wheezes and wet cough. IV fluids stopped.
[2022-01-04] MEDS: Budesonide Respules 0.5 MG/2 ML AMPUL.NEB. INHALATION ×2 (07:10→19:28)
[2022-01-04] MEDS: dexAMETHasone 4 MG Tablet PO ×2 (08:07→21:22)
[2022-01-04] MEDS: Pantoprazole Sodium 40 MG Tablet PO (08:07)
[2022-01-04] MEDS: guaiFENesin 600 MG Tablet PO ×2 (08:07→21:23)
[2022-01-04] MEDS: FLUoxetine 20 MG Capsule 60 MG PO (08:07)
[2022-01-04] MEDS: Sodium Chloride 1 GM Tablet PO (08:07)
[2022-01-04] MEDS: APIXABAN 2.5 MG TABLET PO ×2 (08:07→21:22)
[2022-01-04] MEDS: Insulin Glargine-YFGN 100 UNIT/ML Pen 16 UNIT SC (08:08)
[2022-01-04] MEDS: Insulin Lispro 100 UNIT/ML INSULN.PEN SC ×4 (08:14→21:25)
[2022-01-04 09:15] LABS: Bedside Glucose 150 mg/dL (74-106)
[2022-01-04 12:01] LABS: Bedside Glucose 177 mg/dL (74-106)
--- NOTE | 2022-01-04 12:53 | CASEMGMT ---
MACK WOOD chart review: Patient was admitted from 12/17-12/18/21 for covid and new onset Afib with RVR. See SW note from 12/18/21. Patient was discharged to home after working with PT and declined HHC. Patient had a MBSS on 12/31 with suggestion for thickened liquid. Patient states she has been aspirating at home and had episode of choking on 01/03. Patient returned to [facility] on 01/03 due to increased weakness and diagnosis with aspiration pneumonia. Patient was to follow-up with Dr. Gaspar today. Patient has home oxygen through [employer] at 4lpm with exertion which was verified with [employer]. Patient wishes to discharge home with HHC. Patient provided with list of HHC agencies with medicare ratings and quality measure in her geographical area and in-network with her insurance. Patient and son to review list of HHC. Patient states she was taking her medications as prescribed. Patient had no further questions or concerns at this time. CM will continue to follow this patient and plan for a safe discharge. Discharge disposition: Patient to discharge home with HHC, family support, and follow-up plans in place.
--- NOTE | 2022-01-04 13:35 | PCM.PN.HOSP ---
Subjective Subjective Patient seen and examined. She said she did feel a bit better. She was still having a productive cough. She denied any fever, chills, nausea, vomiting or diarrhea. Review of systems is otherwise negative. Objective Data Objective Data Vital Signs: Vital Signs Temp Pulse Resp BP Pulse Ox O2 Del Method O2 Flow Rate 97.0 F L 90 20 H 105/49 L 92 Nasal Cannula 4 01/04/22 08:05 01/04/22 11:20 01/04/22 08:05 01/04/22 08:05 01/04/22 10:25 01/04/22 08:25 01/04/22 10:31 Oxygen Flow Rate (L/min) 4 Oxygen Delivery Method Nasal Cannula Weight: 133 lb 13.129 oz Body Mass Index (BMI) 22.9 Intake & Output: Intake and Output for Last 24 Hours 01/02/22 01/03/22 01/04/22 23:59 23:59 23:59 Intake Total 2971.5 / 2971.5 2180.67 / 2180.67 Output Total 300 / 300 Balance 2971.5 / 2971.5 1880.67 / 1880.67 Medical Nutrition Assessment Dietitian: Malnutrition Criteria Met Start: 01/04/22 11:17 Freq: Status: Active Protocol: Document 01/04/22 11:17 AG (Rec: 01/04/22 11:17 [id number]) Nutrition Malnutrition Evidence of Malnutrition Exists Yes Malnutrition (severe): Chronic Evidenced By Suboptimal Energy Intake ( Severe),Weight Loss (Severe) Clinical Problem Chronic Disease or Condition Related Malnutrition Etiology severe, chronic malnutrition related to inadequate energy intake w/ increased energy needs d/t metastatic disease Signs/Symptoms as evidenced by unintentional wt loss of 70.2#/34% x 13 months/ 14.1#/10% <2 months; estimated PO intake meeting < 75% of estimated energy needs >3 months Status Active Problem Recommendation Dietitian Recommendations/Changes regular diet (texture/ consistency per [employer]IPPER SLIDE [employer]ER) given severe malnutrition; will add fortified foods and continue 120mL ensure enlive 4x/day w/ medpass for additional calories/protein if consumed. Lab / Micro Data Result Diagrams: 01/04/22 04:36 01/04/22 04:36 Labs: Laboratory Results - last 24 hr 01/03/22 18:00: WBC 7.5, RBC 2.67 L, Hgb 8.7 L, Hct 26.9 L, MCV 100.7 H, MCH 32.6 H, MCHC 32.3, RDW Std Deviation 71.0 H, RDW Coeff of [place] 19.4 H, Plt Count 134 L, MPV 11.0, Immature Gran % (Auto) 2.400 H, Neut % (Auto) 85.8 H, Lymph % (Auto) 8.8 L, [place] % (Auto) 2.7, Eos % (Auto) 0.0, Baso % (Auto) 0.3, Absolute Neuts (auto) 6.5, Absolute Lymphs (auto) 0.66 L, Nucleated RBC % 0, Platelet Estimate ADEQUATE, RBC Morphology N CHROM, Hypochromasia RARE, Anisocytosis 1+, Macrocytosis 1+ 01/03/22 18:00: PT 15.3 H, INR 1.2, APTT 26.8 01/03/22 18:00: Sodium 134 L, Potassium 5.2 H, Chloride 100, Carbon Dioxide 25.0, Anion Gap 9, BUN 63 H, Creatinine 1.28 H, Estim Creat Clear Calc 38.85, Est GFR (MDRD) Af Amer 54 L, Est GFR (MDRD) Non-Af 45 L, BUN/Creatinine Ratio 49.2 H, Glucose 160 H, Calcium 9.3, Total Bilirubin 0.50, AST 44 H, ALT 25, Alkaline Phosphatase 65, Total Protein 7.2, Albumin 2.6 L, Globulin 4.6 H, Albumin/Globulin Ratio 0.6 L 01/03/22 18:00: Lactic Acid 0.9 01/03/22 19:14: Urine Color Yellow, Urine Clarity Clear, Urine pH 6.0, Ur Specific [place] 1.015, Urine Protein Negative, Urine Glucose (UA) Normal, Urine Ketones Negative, Urine Occult Blood Negative, Urine Nitrite Negative, Urine Bilirubin Negative, Urine Urobilinogen Normal, Ur Leukocyte Esterase Negative, Urine RBC 0 SEEN, Urine WBC 0 SEEN, Ur Squamous Epith Cells 0 SEEN, Urine Bacteria 0 SEEN, Urine Mucus 0 SEEN 01/03/22 22:55: POC Glucose 140 H 01/04/22 04:36: WBC 8.4, RBC 2.41 L, Hgb 7.8 L, Hct 24.5 L, MCV 101.7 H, MCH 32.4 H, MCHC 31.8 L, RDW Std Deviation 72.2 H, RDW Coeff of [place] 19.5 H, Plt Count 116 L, MPV 10.4, Immature Gran % (Auto) 1.800 H, Neut % (Auto) 86.5 H, Lymph % (Auto) 7.1 L, [place] % (Auto) 4.5, Eos % (Auto) 0.0, Baso % (Auto) 0.1, Absolute Neuts (auto) 7.3, Absolute Lymphs (auto) 0.60 L, Nucleated RBC % 0, Differential Comment SCANNED, Anisocytosis 1+, Macrocytosis 1+ 01/04/22 04:36: Sodium 140, Potassium 4.5, Chloride 107, Carbon Dioxide 23.0, Anion Gap 10, BUN 41 H, Creatinine 0.87, Estim Creat Clear Calc 57.15, Est GFR (MDRD) Af Amer 84, Est GFR (MDRD) Non-Af 69, BUN/Creatinine Ratio 46.9 H, Glucose 126 H, Calcium 8.5, Total Bilirubin 0.40, AST 41 H, ALT 22, Alkaline Phosphatase 55, Total Protein 6.3 L, Albumin 2.4 L, Globulin 3.9, Albumin/Globulin Ratio 0.6 L 01/04/22 08:03: POC Glucose 150 H 01/04/22 11:37: POC Glucose 177 H Micro: Microbiology 01/04/22 08:20 Sputum, Expectorated/Coughed Gram Stain - Final 01/03/22 19:14 Urine Catheter - Catheter Legionella Antigen - Final 01/03/22 19:14 Urine Catheter - Catheter Streptococcus pneumoniae Antigen (M - Final Radiography Diagnostic Testing: Radiology Impression Chest X-Ray 01/03/22 19:18 IMPRESSION: Right sided pneumonia. Electronically Signed: Adam Sheridan MD at 19:54 EDT , Physical Exam Const alert, oriented x3 and no apparent distress Constitutional Narrative: frail HEENT head/scalp atraumatic HEENT Narrative: oral mucous membranes dry Eyes PERRL, EOMs intact bilaterally and conjunctivae normal Neck no lymphadenopathy, supple and no JVD Resp Resp Narrative: mildly diminished breath sounds bibasally, no wheezes or crackles. on 4L of oxygen by nasal canula Cardio regular rate, regular rhythm, S1 normal heart sound, S2 normal heart sound and no murmurs GI normal to inspection, nondistended, normoactive bowel sounds, soft to palpation, non-tender and non-distended Extremity normal to inspection and full ROM Neuro oriented x3, CN's II-XII intact bilaterally, moves all extremities and no focal motor deficits Sensorium / Orientation: awake and alert Motor Exam: strength 5/5 throughout Assessment & Plan Assessment/Plan (1) NADIYA (acute kidney injury): (2) Hypotension: (3) Aspiration pneumonia: PLAN: Plan #Aspiration pneumonia feels better today. Still has productive cough. on IV unasyn blood and sputum cultures pending titrate oxygten to maintain sats >90% urine for strep and legionella pending #Hypotension: resolved. Likely due to dehydration. BP meds still on hold #Debility due to aspiraiton pneumonia and metastatic cancer: PT/OT on board. Fall precautions #NADIYA on CKD II: resolving. Cr is trending downwards #Dysphagia: improved. Speech therapy consulted #TYpe 2 diabetes mellitus on lantus. ISS. Accuchecks ACHS #History of DVT: on eliquis #Paroxysmal afib: metoprolol held due to hypotension. On eliquis #History of small cell lung cancer with mets to the brain. stable. follow up with oncology on outpatient basis DVT prophylaxis; on eliquis Charges/Coding Visit Charges Inpatient E&M: 25582 Subs Hosp L3
--- NOTE | 2022-01-04 15:16 | CASEMGMT ---
MACK WOOD NOTE: Pt states she and her have looked over the HHC list. 1st preference is [facility]. 2nd is [facility], 3rd is [facility]. Holli HERNANDEZ RN CM
[2022-01-04 16:51] LABS: Bedside Glucose 211 mg/dL (74-106)
[2022-01-04] MEDS: Atorvastatin Calcium 40 MG Tablet PO (21:23)
[2022-01-05] VITALS (16 sets, daily range): BP systolic 105–147; BP diastolic 70–105; PULSE 76–127; RESP 18–26; TEMP 35.7–36.7; O2SAT 90–99
[2022-01-05] MEDS: 0.9% Saline Lock 10 ML Syringe IV (00:40)
[2022-01-05 05:04] LABS: Bedside Glucose 155 mg/dL (74-106)
[2022-01-05 05:46] LABS: Absolute Lymphocyte Count 0.73 X10^3/uL (0.83-4.51); Absolute Neutrophil Count 9.3 X10^3/uL (2.0-7.7); Basophil# 0.02 X10^3/uL; Basophil% 0.2 % (0-1); Hematocrit 25.5 % (37-47); Hemoglobin 7.9 g/dL (12.0-15.0); Lymphocyte # 0.73 X10^3/ul (0.83-4.51); Lymphocyte % 6.6 % (19-41); Mean Corpuscular Hgb 31.9 pg (27.0-32.0); Mean Corpuscular Volume 102.8 fL (81-99); Mean Platelet Vol. 10.9 fl (6.2-12.0); Monocyte# 0.67 X10^3/uL; Monocyte% 6.1 % (0-10); NRBC Flagged by Analyzer 0.3 % (0-5); Neutrophil % 84.2 % (47-70); POSITIVE MORPHOLOGY YES; Platelet Count 152 K/mm3 (150-450); RBC Distribution Width CV 19.6 % (11.6-14.6); RBC Distribution Width SD 73.6 fl (35.1-43.9); Red Blood Count 2.48 M/mm3 (4.2-5.4)
[2022-01-05] MEDS: busPIRone 15 MG TABLET 7.5 MG PO ×3 (05:50→22:20)
[2022-01-05 05:59] LABS: Differential Indicated SCAN CRITERIA MET
[2022-01-05 06:05] LABS: Anion Gap 8 (5-15); BUN 27 mg/dL (7-18); BUN/Creat Ratio 33.9 RATIO (10-20); Calcium,Total 9.3 mg/dL (8.5-10.1); Chloride 107 mmol/L (98-107); EST Glomerular Filtration Rate 77 mL/min (>60); Est Glom Filt Rate - Afr Amer 94 mL/min (>60); Estimated Creatinine Clearance 62.15 ml/min; Glucose 164 mg/dL (74-106); Sodium Level 139 mmol/L (136-145)
[2022-01-05 06:40] LABS: Anisocytosis 1+; Differential Comment SCANNED; Hypochromasia 2+
[2022-01-05 06:40] LABS: Bedside Glucose 148 mg/dL (74-106)
[2022-01-05] MEDS: Albuterol 2.5 MG/3 ML VIAL.NEB. INHALATION ×3 (07:25→21:58)
[2022-01-05] MEDS: Budesonide Respules 0.5 MG/2 ML AMPUL.NEB. INHALATION ×2 (07:26→19:13)
[2022-01-05] MEDS: Sodium Chloride 1 GM Tablet PO (08:15)
[2022-01-05] MEDS: dexAMETHasone 4 MG Tablet PO ×2 (08:15→22:20)
[2022-01-05] MEDS: FLUoxetine 20 MG Capsule 60 MG PO (08:15)
[2022-01-05] MEDS: Pantoprazole Sodium 40 MG Tablet PO (08:16)
[2022-01-05] MEDS: guaiFENesin 600 MG Tablet PO ×2 (08:16→22:20)
[2022-01-05] MEDS: APIXABAN 2.5 MG TABLET PO ×2 (08:16→22:20)
[2022-01-05] MEDS: Insulin Glargine-YFGN 100 UNIT/ML Pen 16 UNIT SC (08:17)
--- NOTE | 2022-01-05 11:01 | PN.HOSP_ITS ---
Subjective Subjective Patient seen and examined. She still feels quite weak, though her shortness of breath is improving. She is not coughing much. She denies any fever, chest pain, palpitations, dizziness, nausea or vomiting. Review of systems is otherwise negative. Objective Data Objective Data Vital Signs: Vital Signs Temp Pulse Resp BP Pulse Ox O2 Del Method O2 Flow Rate 98.0 F 105 H 22 H 122/105 H 96 Nasal Cannula 4 01/05/22 10:00 01/05/22 10:00 01/05/22 10:00 01/05/22 10:00 01/05/22 10:00 01/05/22 10:00 01/05/22 10:00 Oxygen Flow Rate (L/min) 4 Oxygen Delivery Method Nasal Cannula Weight: 133 lb 13.129 oz Body Mass Index (BMI) 22.9 Intake & Output: Intake and Output for Last 24 Hours 01/03/22 01/04/22 01/05/22 23:59 23:59 23:59 Intake Total 2971.5 / 2971.5 2892.67 / 2892.67 224 / 224 Output Total 1850 / 1850 300 / 300 Balance 2971.5 / 2971.5 1042.67 / 1042.67 -76 / -76 Medical Nutrition Assessment Dietitian: Malnutrition Criteria Met Start: 01/04/22 11:17 Freq: Status: Active Protocol: Document 01/04/22 11:17 AG (Rec: 01/04/22 11:17 [id number]) Nutrition Malnutrition Evidence of Malnutrition Exists Yes Malnutrition (severe): Chronic Evidenced By Suboptimal Energy Intake ( Severe),Weight Loss (Severe) Clinical Problem Chronic Disease or Condition Related Malnutrition Etiology severe, chronic malnutrition related to inadequate energy intake w/ increased energy needs d/t metastatic disease Signs/Symptoms as evidenced by unintentional wt loss of 70.2#/34% x 13 months/ 14.1#/10% <2 months; estimated PO intake meeting < 75% of estimated energy needs >3 months Status Active Problem Recommendation Dietitian Recommendations/Changes regular diet (texture/ 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 Lab / Micro Data Result Diagrams: 01/05/22 04:11 01/05/22 04:11 Labs: Laboratory Results - last 24 hr 01/04/22 11:37: POC Glucose 177 H 01/04/22 16:10: POC Glucose 211 H 01/04/22 21:25: POC Glucose 155 H 01/05/22 04:11: WBC 11.0, RBC 2.48 L, Hgb 7.9 L, Hct 25.5 L, MCV 102.8 H, MCH 31.9, MCHC 31.0 L, RDW Std Deviation 73.6 H, RDW Coeff of Lashonda 19.6 H, Plt Count 152, MPV 10.9, Immature Gran % (Auto) 2.900 H, Neut % (Auto) 84.2 H, Lymph % (Auto) 6.6 L, Castro % (Auto) 6.1, Eos % (Auto) 0.0, Baso % (Auto) 0.2, Absolute Neuts (auto) 9.3 H, Absolute Lymphs (auto) 0.73 L, Nucleated RBC % 0.3, Differential Comment SCANNED, Hypochromasia 2+, Anisocytosis 1+ 01/05/22 04:11: Sodium 139, Potassium 4.0, Chloride 107, Carbon Dioxide 24.0, Anion Gap 8, BUN 27 H, Creatinine 0.80, Estim Creat Clear Calc 62.15, Est GFR (MDRD) Af Amer 94, Est GFR (MDRD) Non-Af 77, BUN/Creatinine Ratio 33.9 H, Glucose 164 H, Calcium 9.3 01/05/22 05:40: POC Glucose 148 H Micro: Microbiology 01/04/22 08:20 Sputum, Expectorated/Coughed Gram Stain - Final 01/04/22 08:20 Sputum, Expectorated/Coughed Respiratory Culture - Preliminary Proteus sp. 01/03/22 19:14 Urine, Catheterized Urine Culture - Preliminary Culture exhibits no growth. 01/03/22 19:14 Urine Catheter - Catheter Legionella Antigen - Final 01/03/22 19:14 Urine Catheter - Catheter Streptococcus pneumoniae Antigen (M - Final Physical Exam Const alert, oriented x3 and no apparent distress Constitutional Narrative: frail HEENT head/scalp atraumatic and moist oral mucous membranes Eyes PERRL, EOMs intact bilaterally and conjunctivae normal Neck no lymphadenopathy, supple and no JVD Resp Resp Narrative: mildly diminished breath sounds bibasally, no wheezes or crackles. on 5L of oxygen by nasal canula Cardio regular rate, regular rhythm, S1 normal heart sound, S2 normal heart sound and no murmurs GI normal to inspection, nondistended, normoactive bowel sounds, soft to palpation, non-tender and non-distended Extremity normal to inspection, full ROM and no clubbing, cyanosis or edema Neuro oriented x3, CN's II-XII intact bilaterally, moves all extremities and no focal motor deficits Sensorium / Orientation: awake and alert Motor Exam: strength 5/5 throughout Assessment & Plan Assessment/Plan (1) NADIYA (acute kidney injury): (2) Hypotension: (3) Aspiration pneumonia: PLAN: Plan #Aspiration pneumonia * on IV unasyn * blood cultures pending * is tachypenic and tachycardic today * titrate oxygen to maintain sats >90% * urine for strep and legionella negative. * sputum culture growing Proteus. * #Hypotension: resolved. Likely due to dehydration. BP meds still on hold. Will resume metoprolol #Debility due to aspiration pneumonia and metastatic cancer: PT/OT on board. Fall precautions #Chronic hypoxic respiratory failure * due to metastatic lung cancer * on 3-4L of oxygen, which is around her baseline. * breathing treatment with bronchodilators * titrate oxygen to maintain lio >90% #NADIYA on CKD II: resolving. Cr is trending downwards #Dysphagia: improved. Speech therapy on board. On modified diet as per speech therapy #TYpe 2 diabetes mellitus * on lantus. ISS. Accuchecks ACHS * #History of DVT: on eliquis #Paroxysmal afib: metoprolol held due to hypotension. On eliquis. WIll resume metoprolol as patient is tachycardic, and hypotension has resolved. 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 * stable. follow up with oncology on outpatient basis * DVT prophylaxis; on eliquis Charges/Coding Visit Charges Inpatient E&M: 54088 [facility] Hosp L3
[2022-01-05] MEDS: Metoprolol Tartrate 50 MG Tablet PO ×2 (11:42→22:21)
[2022-01-05 12:05] LABS: Bedside Glucose 140 mg/dL (74-106)
[2022-01-05] MEDS: Insulin Lispro 100 UNIT/ML INSULN.PEN SC (17:11)
[2022-01-05 17:30] LABS: Bedside Glucose 150 mg/dL (74-106)
[2022-01-05] MEDS: Atorvastatin Calcium 40 MG Tablet PO (22:20)
[2022-01-05 22:45] LABS: Bedside Glucose 99 mg/dL (74-106)
[2022-01-06] VITALS (20 sets, daily range): BP systolic 103–160; BP diastolic 58–103; PULSE 75–95; RESP 12–30; TEMP 36.1–36.8; O2SAT 77–98
[2022-01-06 04:55] LABS: Absolute Lymphocyte Count 0.68 X10^3/uL (0.83-4.51); Absolute Neutrophil Count 9.4 X10^3/uL (2.0-7.7); Basophil# 0.03 X10^3/uL; Basophil% 0.3 % (0-1); Hematocrit 26.2 % (37-47); Hemoglobin 8.1 g/dL (12.0-15.0); Lymphocyte # 0.68 X10^3/ul (0.83-4.51); Lymphocyte % 6.1 % (19-41); Mean Corp Hgb Conc 30.9 g/dL (32-36); Mean Corpuscular Hgb 32.1 pg (27.0-32.0); Mean Platelet Vol. 10.2 fl (6.2-12.0); Monocyte# 0.71 X10^3/uL; Monocyte% 6.3 % (0-10); NRBC Flagged by Analyzer 0 % (0-5); Neutrophil % 83.9 % (47-70); POSITIVE MORPHOLOGY YES; Platelet Count 147 K/mm3 (150-450); RBC Distribution Width CV 19.5 % (11.6-14.6); RBC Distribution Width SD 73.9 fl (35.1-43.9); Red Blood Count 2.52 M/mm3 (4.2-5.4); White Blood Count 11.2 K/mm3 (4.4-11.0)
[2022-01-06 05:16] LABS: Differential Indicated SCAN CRITERIA MET
[2022-01-06 05:18] LABS: Anion Gap 5 (5-15); BUN 23 mg/dL (7-18); BUN/Creat Ratio 32.4 RATIO (10-20); Calcium,Total 9.3 mg/dL (8.5-10.1); Chloride 108 mmol/L (98-107); Creatinine, Serum 0.71 mg/dL (0.55-1.02); EST Glomerular Filtration Rate 88 mL/min (>60); Est Glom Filt Rate - Afr Amer 107 mL/min (>60); Estimated Creatinine Clearance 70.03 ml/min; Glucose 107 mg/dL (74-106); Sodium Level 140 mmol/L (136-145)
[2022-01-06 05:42] LABS: Anisocytosis 1+; Differential Comment SCANNED; Hypochromasia 1+
[2022-01-06] MEDS: busPIRone 15 MG TABLET 7.5 MG PO ×3 (06:13→21:39)
[2022-01-06] MEDS: Albuterol 2.5 MG/3 ML VIAL.NEB. INHALATION ×5 (07:22→23:26)
[2022-01-06] MEDS: Budesonide Respules 0.5 MG/2 ML AMPUL.NEB. INHALATION ×2 (07:22→18:52)
[2022-01-06] MEDS: FLUoxetine 20 MG Capsule 60 MG PO (10:13)
[2022-01-06] MEDS: APIXABAN 2.5 MG TABLET PO (10:13)
[2022-01-06] MEDS: guaiFENesin 600 MG Tablet PO (10:13)
[2022-01-06] MEDS: dexAMETHasone 4 MG Tablet PO ×2 (10:13→21:38)
[2022-01-06] MEDS: Metoprolol Tartrate 50 MG Tablet PO ×2 (10:14→21:38)
[2022-01-06] MEDS: Sodium Chloride 1 GM Tablet PO (10:14)
[2022-01-06] MEDS: Pantoprazole Sodium 40 MG Tablet PO (10:14)
[2022-01-06] MEDS: Insulin Glargine-YFGN 100 UNIT/ML Pen 16 UNIT SC (10:17)
[2022-01-06 12:06] LABS: Bedside Glucose 114 mg/dL (74-106)
--- NOTE | 2022-01-06 12:45 | PN.HOSP_ITS ---
Subjective Subjective Patient seen and examined. She still feels quite weak. She remains tachypneic. Her oxygen requirements have increased to 6 L today. She is still coughing and is productive. Review of systems otherwise negative. Objective Data Objective Data Vital Signs: Vital Signs Temp Pulse Resp BP Pulse Ox O2 Del Method O2 Flow Rate 97.8 F 94 24 H 120/103 H 94 Nasal Cannula 12 01/06/22 09:00 01/06/22 11:04 01/06/22 11:04 01/06/22 10:14 01/06/22 10:54 01/06/22 10:54 01/06/22 10:54 Oxygen Flow Rate (L/min) 12 Oxygen Delivery Method Nasal Cannula Weight: 133 lb 13.129 oz Body Mass Index (BMI) 22.9 Intake & Output: Intake and Output for Last 24 Hours 01/04/22 01/05/22 01/06/22 23:59 23:59 23:59 Intake Total 2892.67 / 2892.67 448 / 568 696 / 696 Output Total 1850 / 1850 1450 / 1450 775 / 775 Balance 1042.67 / 1042.67 -1002 / -882 -79 / -79 Medical Nutrition Assessment Dietitian: Malnutrition Criteria Met Start: 01/04/22 11:17 Freq: Status: Active Protocol: Document 01/04/22 11:17 AG (Rec: 01/04/22 11:17 [id number]) Nutrition Malnutrition Evidence of Malnutrition Exists Yes Malnutrition (severe): Chronic Evidenced By Suboptimal Energy Intake ( Severe),Weight Loss (Severe) Clinical Problem Chronic Disease or Condition Related Malnutrition Etiology severe, chronic malnutrition related to inadequate energy intake w/ increased energy needs d/t metastatic disease Signs/Symptoms as evidenced by unintentional wt loss of 70.2#/34% x 13 months/ 14.1#/10% <2 months; estimated PO intake meeting < 75% of estimated energy needs >3 months Status Active Problem Recommendation Dietitian Recommendations/Changes regular diet (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 Lab / Micro Data Result Diagrams: 01/06/22 04:26 01/06/22 04:26 Labs: Laboratory Results - last 24 hr 01/05/22 17:07: POC Glucose 150 H 01/05/22 22:16: POC Glucose 99 01/06/22 04:26: WBC 11.2 H, RBC 2.52 L, Hgb 8.1 L, Hct 26.2 L, MCV 104.0 H, MCH 32.1 H, MCHC 30.9 L, RDW Std Deviation 73.9 H, RDW Coeff of [place]ashonda 19.5 H, Plt Count 147 L, MPV 10.2, Immature Gran % (Auto) 3.400 H, Neut % (Auto) 83.9 H, Lymph % (Auto) 6.1 L, [place] % (Auto) 6.3, Eos % (Auto) 0.0, Baso % (Auto) 0.3, Absolute Neuts (auto) 9.4 H, Absolute Lymphs (auto) 0.68 L, Nucleated RBC % 0, Differential Comment SCANNED, Hypochromasia 1+, Anisocytosis 1+ 01/06/22 04:26: Sodium 140, Potassium 4.0, Chloride 108 H, Carbon Dioxide 27.0, Anion Gap 5, BUN 23 H, Creatinine 0.71, Estim Creat Clear Calc 70.03, Est GFR (MDRD) Af Amer 107, Est GFR (MDRD) Non-Af 88, BUN/Creatinine Ratio 32.4 H, Glucose 107 H, Calcium 9.3 01/06/22 11:18: POC Glucose 114 H Micro: Microbiology 01/03/22 19:14 Urine, Catheterized Urine Culture - Final Culture exhibits no growth. 01/04/22 08:20 Sputum, Expectorated/Coughed Gram Stain - Final 01/04/22 08:20 Sputum, Expectorated/Coughed Respiratory Culture - Final Proteus mirabilis 01/03/22 18:00 Blood Culture (Wb) - Port Blood Culture - Preliminary No growth in 48 hours. 01/03/22 19:23 Blood Culture (Wb) - Anticubital Right Blood Culture - Preliminary No growth in 48 hours. 01/03/22 19:14 Urine Catheter - Catheter Legionella Antigen - Final 01/03/22 19:14 Urine Catheter - Catheter Streptococcus pneumoniae Antigen (M - Final Physical Exam Const alert, oriented x3 and no apparent distress Constitutional Narrative: frail HEENT head/scalp atraumatic and moist oral mucous membranes Mouth: oral and palatal mucosa normal Eyes PERRL, EOMs intact bilaterally and conjunctivae normal Neck no lymphadenopathy, supple and no JVD Resp Resp Narrative: mildly diminished breath sounds bibasally, no wheezes or crackles. on 6L of oxygen by nasal canula Cardio regular rate, regular rhythm, S1 normal heart sound, S2 normal heart sound and no murmurs GI normal to inspection, nondistended, normoactive bowel sounds, soft to palpation, non-tender and non-distended Extremity normal to inspection, full ROM and no clubbing, cyanosis or edema Neuro oriented x3, CN's II-XII intact bilaterally, moves all extremities and no focal motor deficits Sensorium / Orientation: awake and alert Motor Exam: strength 5/5 throughout Assessment & Plan Assessment/Plan (1) NADIYA (acute kidney injury): (2) Hypotension: (3) Aspiration pneumonia: PLAN: Plan #Acute on chronic hypoxic respiratory failure due to Aspiration pneumonia and metastatic lung cancer * patient doesnt seem to be improving * was on 5L of oxygen this morning, and by this afternoon, is now up to 12L of oxygen. Usually wears 3-4L of oxygen at home * will broaden IV antibiotics to IV vancomycin and zosyn; dc unasyn * sputum culture growing Proteus. BLood cultures are negaitve * will order CTA chest to further evaluate the lungs * check ABG. * pulmonology consulted * low threshold for transfer to ICU * #Hypotension: resolved. #Debility due to aspiration pneumonia and metastatic cancer: PT/OT on board. Fall precautions #NADIYA on CKD II: resolving. Cr is trending downwards #Dysphagia: improved. Speech therapy on board. On modified diet as per speech therapy #TYpe 2 diabetes mellitus * on lantus. ISS. Accuchecks ACHS * #History of DVT: on eliquis #Paroxysmal afib: on metoprolol. On eliquis. 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 * stable. follow up with oncology on outpatient basis * DVT prophylaxis; on eliquis Charges/Coding Visit Charges Inpatient E&M: 91665 Subs Hosp L3
--- NOTE | 2022-01-06 12:53 | CT_ITS ---
STUDY: CTA CHEST REASON FOR EXAM: Female, 61 years old. Shortness of breath RADIATION DOSAGE (If Supplied By Facility): CTDIvol = ( 12.41 ) mGy, DLP = ( 457.49 ) mGycm TECHNIQUE: The examination was performed with the intravenous administration of IV 75mL Isovue-370. Post-processing of the angiographic images was performed, with multiplanar reformation and 3D reconstruction. Individualized dose optimization techniques were used for this CT. COMPARISON: Comparison is made with prior study dated 12/17/2021. FINDINGS: A right sided Port-A-Cath is seen with the tip in the superior vena cava. Normal enhancement of the main pulmonary artery and right and left pulmonary arteries. Normal enhancement of the bilateral peripheral pulmonary arteries. There is no demonstrated pulmonary embolism. Normal thoracic aorta and visualized great vessels. There is no demonstrated aortic dissection. Right pericardial thickening in the possible effusion and mass. There are calcifications of the coronary arteries. Diffuse mediastinal and right hilar adenopathy. There is narrowing of the right upper lobe bronchus with the postobstructive pneumonitis and volume loss. Findings aren''t consistent with a bronchogenic carcinoma in the post obstructive pneumonitis. Increased markings in the anterior aspect of the left upper lobe. There is a 4.1 mm nodule in the anterior medial aspect of the left upper lobe. Patchy infiltrates in the left lower lobe as well. Mode rate size right pleural effusion. Normal chest wall structures. Evidence of a prior compression fracture of the L1 and L3 vertebrae and vertebroplasty. There is a 1.6 on a cyst in the anterior midportion of the left kidney. There is also evidence of a 2.1 semi this is in the posterior upper pole of the right kidney as well as a 1 cm cyst in the upper lateral aspect of the right kidney. Stable bilateral renal masses suggestive of a metastatic disease. CT/CTA Chest W/WO Contrast IMPRESSION: Stable mediastinal and right hilar lymphadenopathy with narrowing of the right upper lobe uncus with post obstructive pneumonitis. Slight increase in the right pleural effusion with bibasilar atelectasis worse on the right side evidence of increased markings in the left upper lobe as well as in the right upper lobe. Stable bilateral adrenal masses and the lateral renal cysts. No evidence of pulmonary embolism. Electronically Signed: Carlos Chou MD at 13:50 EDT ,
[2022-01-06 13:26] LABS: Base Excess 0 mmol/L (-2 to +2); Bicarbonate 24.5 mmol/L (22-26); Blood Gas Specimen Type ART; PO2 71 mmHG (75-100); SITE L Radial; SO2 94 % (95-99); Total Carbon Dioxide 26 mmol/L; pH 7.41 (7.35-7.45)
--- NOTE | 2022-01-06 15:01 | EX.PCM.CONCC ---
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 Diagnostic and therapeutic thoracentesis after 48 hours off of Eliquis 2. Aggressive pulmonary toileting with Acapella. Add vest tomorrow if unsuccessful 3. Wean supplemental oxygen as tolerated 4. Consider oncology consult for prognostication 5. Continue antibiotics and steroids IMPRESSIONS: 1. Acute hypoxic respiratory failure secondary to postobstructive pneumonia with Proteus mirabilis with possible aspiration Patient with mediastinal lymphadenopathy and obstruction earlier this month. Patient now growing Proteus with acute decompensation. Patient does have a significant pleural effusion. It is unclear if this is secondary to the small cell lung cancer or a parapneumonic effusion. We will hold Eliquis as patient will require a thoracentesis for diagnostic and therapeutic reasoning. Anticipate pulmonary toileting will be severely limited given obstruction with previous small cell lung cancer and external compression with pleural effusion. Patient did have an abnormal modified swallow study. Continue with speech recommendations 2. Acute kidney injury on CKD stage II Appears to be improving. Low clinical suspicion patient will be responsive to diuretics given exudate differential for pleural effusion. Electrolyte repletion as indicated. 3. Paroxysmal A. fib/history of DVT/type 2 diabetes mellitus/advanced small cell lung cancer Complicates care, management, recovery and prognosis. We will need to hold Eliquis given need for thoracentesis. Patient is on Decadron secondary to small cell lung cancer. This will need to be continued, but will also require increased insulin requirements. Consider consult to oncology to discuss prognosis. Patient is stating that she wants to be a full code at this time, but long-term prognosis with brain metastasis in small cell is grim. HPI Consult Data Date of Consult: 01/06/22 HPI Narrative Reason for Consultation: Hypoxic respiratory failure HPI Narrative: CAPRI CORONEL is a 61 F with past medical history listed below and well-known to me from the outpatient office, who presented to [facility] on 01/03/2022 secondary to progressive weakness. Patient does have a history of metastatic small cell lung cancer, treated by Dr. Gaspar, who was recently [facility] from a prison facility after 5-week stay ambulating with a walker. Patient reportedly has been noted to have a stable brain lesion on recent MRI. Patient reportedly had had issues with choking when a recent swallow study had reported the need for thickened liquid diet. On the day of presentation, family checked on her and she was noted be unstable and lightheaded. Patient is on 3 L nasal cannula at baseline and had denied any increasing respiratory distress, dysuria or fevers. Patient is on dexamethasone at baseline. Last radiation was December 11 and last chemo was 6 weeks ago. In the ER, patient was saturating well on her baseline 3 L nasal cannula. Patient was hypotensive at 79/51. Patient was tachypneic at 20 breaths/min. Laboratory work-up at that time showed a white blood cell count of 7.5, hemoglobin of 8.7 and platelet count of 134. Coagulation studies were within normal limits. Creatinine was slightly elevated 1.28 with a potassium of 5.2 and a glucose of 160. Lactate and UA were unremarkable. Chest x-ray showed a right-sided pneumonia and EKG showed a slightly elevated QTC of 470. Patient was admitted to the hospital for further work-up. Over the course of the hospitalization, patient has become progressively hypoxic ultimately requiring a pulmonary consult. Given decompensation, patient had to have a CTA of the chest that was personally reviewed prior to examination. Patient subjectively feels worse compared to admission. Patient does report a wet cough but very little production. Patient is not reporting any chest pain, abdominal pain, nausea or vomiting. Patient has not had any significant lower extremity edema. Patient has reported feeling confused during this hospitalization but feels that she is clearer now. Review of systems otherwise negative from a constitutional, HEENT, respiratory, cardiovascular, GI, genitourinary, musculoskeletal, skin, neurologic, psychiatric and hematologic system unless stated above. [facility] Medical History Anxiety Atherosclerosis of [place] coronary artery of [place] heart without angina pectoris Brain aneurysm Cancer Carcinoma, lung Cardiac dysrhythmia Cardiology follow-up encounter Congestive heart failure COPD (chronic obstructive pulmonary disease) Coronary artery disease Cough Depression Diarrhea Diarrhea due to drug DVT (deep venous thrombosis) Edema Electrolyte abnormality Encounter for chemotherapy management Encounter for immunotherapy Former smoker Gastric reflux GERD (gastroesophageal reflux disease) Hiatal hernia History of blood transfusion History of echocardiogram History of fatty infiltration of liver History of stress test Hyperlipidemia Hypertension Hypokalemia Hypomagnesemia Injury of head and neck Loose, teeth Low iron Lower extremity edema Myocardial infarct Normocytic anemia On home oxygen therapy Oxygen dependent Pneumonia Presence of stent in coronary artery (~05/2011) Restless legs Shortness of breath on exertion Sinus drainage Syncope Tremor Type II diabetes mellitus Urinary retention with incomplete bladder emptying Uses wheelchair Vertigo Wears partial dentures Home Medications lidocaine-prilocaine 2.5 %-2.5 % topical cream 1 applic topical ONCE PRN Port access 30 days #30 grams 10/19/20 [Rx Last Taken Unknown] atorvastatin 40 mg tablet 40 mg PO QHS cholesterol #90 tabs 02/10/21 [Rx Last Taken Unknown] ondansetron 8 mg disintegrating tablet 8 mg PO Q8H PRN nausea and vomiting #30 tabs 06/08/21 [Rx Last Taken 12/17/21 08:00] fluoxetine 20 mg capsule 60 mg PO DAILY Check with primary doctor 3 months #270 caps 06/21/21 [Rx Last Taken 11/22/21] lisinopril 10 mg tablet 10 mg PO DAILY BLOOD PRESSURE #90 tabs 06/21/21 [Rx Last Taken Unknown] pantoprazole 20 mg tablet,delayed release 40 mg PO DAILY gerd #90 tabs 09/02/21 [Rx Last Taken 11/22/21] acetaminophen 325 mg tablet (Tylenol) 650 mg PO Q6H PRN PRN Pain Score 1-10/Temp > 100.7 F #0 tabs 11/29/21 [Rx Last Taken Unknown] albuterol sulfate 2.5 mg/3 mL (0.083 %) solution for nebulization 2.5 mg (3 mL) inhalation Q6HWA.RT #0 mL 11/29/21 [Rx Last Taken 12/17/21 06:00] budesonide 0.5 mg/2 mL suspension for nebulization 0.5 mg (2 mL) inhalation Q12H.RT #0 mL 11/29/21 [Rx Last Taken 12/17/21 08:00] buspirone 15 mg tablet 7.5 mg PO TID #0 tabs 11/29/21 [Rx Last Taken Unknown] cyclobenzaprine 5 mg tablet 5 mg PO TID PRN Muscle Spasm #0 tabs 11/29/21 [Rx Last Taken Unknown] food supplemt, lactose-reduced 0.08 gram-1.5 kcal/mL oral liquid (Ensure Enlive) 120 ml PO 4X/DAY #0 mL 11/29/21 [Rx Last Taken Unknown] furosemide 40 mg tablet 40 mg PO DAILY #0 tabs 11/29/21 [Rx Last Taken Unknown] insulin glargine-yfgn 100 unit/mL (3 mL) subcutaneous pen 20 unit (0.2 mL) subcut BREAKFAST #0 mL 11/29/21 [Rx Last Taken 12/17/21 08:00] insulin lispro 100 unit/mL subcutaneous pen (Humalog KwikPen (U-100) Insulin) 6 unit (0.06 mL) subcut 0800,1200,1700 #0 mL 11/29/21 [Rx Last Taken Unknown] metoprolol tartrate 50 mg tablet 50 mg PO BID #0 tabs 11/29/21 [Rx Last Taken 12/17/21 08:00] oxycodone 5 mg tablet 5 mg PO Q4H PRN PRN Pain, Moderate 7 days #12 tabs 11/29/21 [Rx Last Taken 12/17/21 08:00] potassium chloride 20 mEq tablet,extended release(part/cryst) (Klor-Con M) 40 meq PO BREAKFAST #0 tabs 11/29/21 [Rx Last Taken Unknown] sodium chloride 1,000 mg soluble tablet 1 g PO DAILY #0 tabs 11/29/21 [Rx Last Taken 12/17/21 08:00] apixaban 2.5 mg tablet (Eliquis) 2.5 mg PO BID #60 tabs 12/18/21 [Rx Last Taken Unknown] guaifenesin 600 mg tablet, extended release 12 hr (Mucinex) 600 mg PO BID Check with primary doctor 12/18/21 [History Last Taken 12/17/21 08:00] dexamethasone 4 mg tablet 4 mg PO BID #14 tabs 12/27/21 [Rx Last Taken Unknown] memantine 5 mg tablet 5 mg PO BID prevention of neurocognitive decline #105 tabs 01/04/22 [Rx Last Taken Unknown] Allergy/AdvReac Type Severity Reaction Status Date / Time No Known Allergies Allergy Verified 01/03/22 17:25 Family History Father , Age 56 Myocardial infarction Heart disease COPD (chronic obstructive pulmonary disease) Mother COPD (chronic obstructive pulmonary disease) Heart disease Surgical History H/O arthroscopic knee surgery H/O elbow surgery History of cardiac catheterization History of carpal tunnel surgery History of cholecystectomy History of coronary artery stent placement History of lumbar surgery History of tubal ligation Hx of biopsy Presence of coronary angioplasty implant and graft Social History household members: spouse housing: house current occupational status: retired Smoking Status: Former smoker quit date: 06/19/13 pack-years: 35 Tobacco: How many years used: 37 how long ago did patient quit smokin years ago second hand exposure: No alcohol intake: never substance use type: does not use caffeine: Yes Type: carbonated beverages Number of servings: 2 and coffee Number of servings: 2 eating out: 1-3 times/week during the past year weight has: increased > 10 lbs lizette/mu-ism: Nondenominational seatbelt use: always do you feel safe at home: Yes ROS ROS Narrative See HPI Physical Exam Const alert and oriented x3 General Appearance: cooperative, in distress Positive for moderate (Moderate conversational dyspnea), ill appearing and frail HEENT head/scalp atraumatic and moist oral mucous membranes HEENT Narrative: Alopecia noted Mouth: oral and palatal mucosa normal Eyes PERRL, EOMs intact bilaterally and conjunctivae normal Neck no lymphadenopathy, supple and no JVD Resp Auscultation: rhonchi right lower, wheezes scattered wheezes and diminished lung sounds; Negative for rales Percussion: dullness Lower: right Cardio regular rate, regular rhythm, S1 normal heart sound, S2 normal heart sound, no murmurs, no rub, no gallops and no JVD GI normal to inspection, nondistended, normoactive bowel sounds, soft to palpation, non-tender and non-distended Extremity normal to inspection, full ROM and no clubbing, cyanosis or edema Neuro oriented x3, CN's II-XII intact bilaterally, moves all extremities and no focal motor deficits Sensorium / Orientation: awake and alert Motor Exam: strength 5/5 throughout Psych cooperative Mood & Affect: anxious Medical Records Data Attestation: I reviewed the patient's medical records Medical records narrative: History of bronchoscopy confirming small cell. Patient does have recent metastasis. CTA of the chest earlier this month did show significant mediastinal lymphadenopathy with right middle lobe airspace disease and postobstructive atelectasis Medical Nutrition Assessment Dietitian: Malnutrition Criteria Met Start: 01/04/22 11:17 Freq: Status: Active Protocol: Document 01/04/22 11:17 AG (Rec: 01/04/22 11:17 [id number]) Nutrition Malnutrition Evidence of Malnutrition Exists Yes Malnutrition (severe): Chronic Evidenced By Suboptimal Energy Intake ( Severe),Weight Loss (Severe) Clinical Problem Chronic Disease or Condition Related Malnutrition Etiology severe, chronic malnutrition related to inadequate energy intake w/ increased energy needs d/t metastatic disease Signs/Symptoms as evidenced by unintentional wt loss of 70.2#/34% x 13 months/ 14.1#/10% <2 months; estimated PO intake meeting < 75% of estimated energy needs >3 months Status Active Problem Recommendation Dietitian Recommendations/Changes regular diet (texture/ consistency per SALES LEADER) given severe malnutrition; will add fortified foods and continue 120mL ensure enlive 4x/day w/ medpass for additional calories/protein if consumed. Lab / Micro Data Attestation: I reviewed the patient's lab results. Result Diagrams: 01/06/22 04:26 01/06/22 04:26 Labs: Laboratory Results - last 24 hr 01/05/22 17:07: POC Glucose 150 H 01/05/22 22:16: POC Glucose 99 01/06/22 04:26: WBC 11.2 H, RBC 2.52 L, Hgb 8.1 L, Hct 26.2 L, MCV 104.0 H, MCH 32.1 H, MCHC 30.9 L, RDW Std Deviation 73.9 H, RDW Coeff of Lash[place] 19.5 H, Plt Count 147 L, MPV 10.2, Immature Gran % (Auto) 3.400 H, Neut % (Auto) 83.9 H, Lymph % (Auto) 6.1 L, Loving % (Auto) 6.3, Eos % (Auto) 0.0, Baso % (Auto) 0.3, Absolute Neuts (auto) 9.4 H, Absolute Lymphs (auto) 0.68 L, Nucleated RBC % 0, Differential Comment SCANNED, Hypochromasia 1+, Anisocytosis 1+ 01/06/22 04:26: Sodium 140, Potassium 4.0, Chloride 108 H, Carbon Dioxide 27.0, Anion Gap 5, BUN 23 H, Creatinine 0.71, Estim Creat Clear Calc 70.03, Est GFR (MDRD) Af Amer 107, Est GFR (MDRD) Non-Af 88, BUN/Creatinine Ratio 32.4 H, Glucose 107 H, Calcium 9.3 01/06/22 11:18: POC Glucose 114 H Micro: Microbiology 01/03/22 19:14 Urine, Catheterized Urine Culture - Final Culture exhibits no growth. 01/04/22 08:20 Sputum, Expectorated/Coughed Gram Stain - Final 01/04/22 08:20 Sputum, Expectorated/Coughed Respiratory Culture - Final Proteus mirabilis 01/03/22 18:00 Blood Culture (Wb) - Port Blood Culture - Preliminary No growth in 48 hours. 01/03/22 19:23 Blood Culture (Wb) - Anticubital Right Blood Culture - Preliminary No growth in 48 hours. ABG Data ABG results: ABG 01/06/22 13:21 Specimen Type ART Sample Site L Radial pH 7.41 Bicarbonate Actual 24.5 Total CO2 26 Base Excess 0 O2 Saturation 94 L ABG pCO2 39.0 ABG pO2 71 L Moises Test N/A Liter Flow 8.0 Attestation: I personally reviewed and interpreted this ABG as follows: Interpretation: Appropriate acid-base with increased AA gradient Rhythm Strip Rhythm Strip: Sinus Rhythm Rate: 77 Ectopy: None Radiology Impression Chest CTA 01/06/22 12:53 IMPRESSION: Stable mediastinal and right hilar lymphadenopathy with narrowing of the right upper lobe uncus with post obstructive pneumonitis. Slight increase in the right pleural effusion with bibasilar atelectasis worse on the right side evidence of increased markings in the left upper lobe as well as in the right upper lobe. Stable bilateral adrenal masses and the lateral renal cysts. No evidence of pulmonary embolism. Electronically Signed: Carlos Chou MD at 13:50 EDT , Charges/Coding Visit Charges Inpatient E&M: 98596 Init Hosp L3
[2022-01-06 16:35] LABS: Bedside Glucose 103 mg/dL (74-106)
--- NOTE | 2022-01-06 19:55 | PCM.RX.CS ---
Consult Pharmacy has been consulted to manage selected antiobiotic: Vancomycin Type of Consult: New start Suspected Infection: Pneumonia Prior Doses of Antibiotics Received/Current Regimen: 1500MG on 01/06/22 @ 1837 Labs: Sodium 140 mmol/L (136-145) 01/06/22 04:26 Potassium 4.0 mmol/L (3.5-5.1) 01/06/22 04:26 Chloride 108 mmol/L (98-107) H 01/06/22 04:26 Carbon Dioxide 27.0 mmol/L (21.0-32.0) 01/06/22 04:26 Anion Gap 5 (5-15) 01/06/22 04:26 BUN 23 mg/dL (7-18) H 01/06/22 04:26 Creatinine 0.71 mg/dL (0.55-1.02) 01/06/22 04:26 Est GFR (MDRD) Af Amer 107 mL/min (>60) 01/06/22 04:26 Est GFR (MDRD) Non-Af 88 mL/min (>60) 01/06/22 04:26 BUN/Creatinine Ratio 32.4 RATIO (10-20) H 01/06/22 04:26 Glucose 107 mg/dL (74-106) H 01/06/22 04:26 Microbiology: Microbiology 01/03/22 19:14 Urine, Catheterized Urine Culture - Final Culture exhibits no growth. 01/04/22 08:20 Sputum, Expectorated/Coughed Gram Stain - Final 01/04/22 08:20 Sputum, Expectorated/Coughed Respiratory Culture - Final Proteus mirabilis 01/03/22 18:00 Blood Culture (Wb) - Port Blood Culture - Preliminary No growth in 48 hours. 01/03/22 19:23 Blood Culture (Wb) - Anticubital Right Blood Culture - Preliminary No growth in 48 hours. 01/03/22 19:14 Urine Catheter - Catheter Legionella Antigen - Final 01/03/22 19:14 Urine Catheter - Catheter Streptococcus pneumoniae Antigen (M - Final Weight used for dosin kg Estimated Creatinine Clearance: 70 Goal Trough: 15-20 mcg/mL Pharmacy Plan for Drug Dosinmg of Vancomycin every 12 hours Pharmacy Service will continue to monitor and adjust dosing as required. Follow-Up Labs: Trough Vancomycin Labs to be done on [date and time ordered]: 01/08/22 @ 0600
[2022-01-06] MEDS: guaiFENesin 1,200 MG Tablet 1200 MG PO (21:38)
[2022-01-06] MEDS: Atorvastatin Calcium 40 MG Tablet PO (21:39)
[2022-01-06 22:05] LABS: Bedside Glucose 88 mg/dL (74-106)
[2022-01-07] VITALS (18 sets, daily range): BP systolic 100–143; BP diastolic 67–94; PULSE 78–116; RESP 12–33; TEMP 36.4–37.4; O2SAT 87–99
--- NOTE | 2022-01-07 | IMM_PTH ---
PATIENT: CAPRI CORONEL LOC: ICU U#:[id number] AGE/SX: 61/F ROOM: ICU04 RE01/03/[address]: Dr. Norma Acevedo MD : 1960 BED: 1 DIS: 01/09/2022 SPEC #: [id number] RECD: 01/11/22 13:05 STATUS: GILBERTO REQ #: [id number] RANJIT: 01/07/22 00:[address]: Norma Acevedo DEPT: IMMUNOHISTOCHEMISTRY RECD BY: Eveline Dorado ENTERED: 01/11/22 13:07 SP TYPE: IMMUNO OTHR DR: July Bridges, [employer] MANAGER-C MD Dr. Wilfrid Rowe, DO Dr. Andre Langley, DO MD Dr. Max Huff MD Dr. Jodi Hannan, MD Christina Muller, [employer] MA[employer]GER[employer] Stephanie Hardy, [employer] MA[employer]GER-[employer] Leslie Pacheco, [employer] MANAGER-C Tissues: THORACIC FLUID Procedures: Synapto (add) CD45 (add) CD56 (add) CHROMO (add) CK20 (add) CK7 (add) CK8 (add) KI-67 (add) TTF1 (add) Pankeratin (initial) PHYSICIAN & [place] [id number] SPECIMEN INFORMATION: Tissue Source: Thoracentesis fluid Clinical Info: Right pleural effusion Specimen Number: [id number] CPT code: 65455, 06359 x9 METHODOLOGY: Deparaffinized sections of prefer/formalin-fixed tissue or PAP/DQ stained slides are incubated with monoclonal/polyclonal antibodies/oligonucleotide probes. Localization is made via biotin free immunoperoxidase method. Appropriate controls are performed and reacted as expected. Results on target cell population are indicated in the following table: RESULTS: ANTIBODY / CLONE RESULT AE1-3 (AE1/AE3/PCK26) positive CK7 (OV-TL12/30) positive CK8 (10xpzvV18) positive CK20 (KS20.8) negative CD45 (RP2/18) negative CD56 (123C3.D5) positive Chromo (LK2H10) positive Synapto (polyclonal) positive TTF-1 (8G7G3/1) positive Ki-67 (30-9) positive, moderate These tests were developed and their performance characteristics determined by [facility]. They may not have been cleared or approved by the [place]. Food and Drug Administration. The FDA has determined that such clearance or approval is not necessary. The above immunohistochemical/dualISH markers are ordered and reviewed by the Pathologist. INTERPRETATION: Thoracentesis fluid (cell block): Malignant cells present derived from small cell carcinoma. SJ:killian 01/12/2022
[2022-01-07] MEDS: busPIRone 15 MG TABLET 7.5 MG PO (06:01)
[2022-01-07] MEDS: 0.9% Saline Lock 10 ML Syringe IV ×3 (06:02→20:13)
[2022-01-07] MEDS: Vancomycin IV 1,000 MG/200 ML BAG 200 MG IV ×2 (06:08→17:23)
[2022-01-07] MEDS: Furosemide 40 MG/4 ML Vial IV (06:11)
[2022-01-07 06:31] LABS: Absolute Lymphocyte Count 0.98 X10^3/uL (0.83-4.51); Absolute Neutrophil Count 11.1 X10^3/uL (2.0-7.7); Basophil# 0.03 X10^3/uL; Basophil% 0.2 % (0-1); Hematocrit 27.5 % (37-47); Hemoglobin 8.5 g/dL (12.0-15.0); Lymphocyte # 0.98 X10^3/ul (0.83-4.51); Lymphocyte % 7.3 % (19-41); Mean Corp Hgb Conc 30.9 g/dL (32-36); Mean Corpuscular Volume 103.4 fL (81-99); Mean Platelet Vol. 10.2 fl (6.2-12.0); Monocyte# 0.97 X10^3/uL; Monocyte% 7.2 % (0-10); NRBC Flagged by Analyzer 0.2 % (0-5); Neutrophil # 11.14 X10^3/uL (2.7-7.7); Neutrophil % 82.6 % (47-70); POSITIVE MORPHOLOGY YES; Platelet Count 149 K/mm3 (150-450); RBC Distribution Width CV 19.3 % (11.6-14.6); RBC Distribution Width SD 73.1 fl (35.1-43.9); Red Blood Count 2.66 M/mm3 (4.2-5.4); White Blood Count 13.5 K/mm3 (4.4-11.0)
[2022-01-07 06:32] LABS: Differential Indicated SCAN CRITERIA MET
[2022-01-07 06:45] LABS: Anisocytosis 1+; Differential Comment SCANNED; Macrocytosis 1+
[2022-01-07] MEDS: LORazepam 2 MG/ML Syringe 1 MG IV (06:47)
[2022-01-07 06:59] LABS: AST(SGOT) 47 U/L (15-37); Alanine Aminotransfer ALT/SGPT 31 U/L (13-56); Albumin, Serum 2.4 g/dL (3.2-5.0); Alkaline Phosphatase 78 U/L (45-117); Anion Gap 7 (5-15); BUN 26 mg/dL (7-18); BUN/Creat Ratio 33.7 RATIO (10-20); Bilirubin, Direct 0.16 mg/dL (0.00-0.30); Calcium,Total 9.4 mg/dL (8.5-10.1); Chloride 110 mmol/L (98-107); Creatinine, Serum 0.77 mg/dL (0.55-1.02); EST Glomerular Filtration Rate 80 mL/min (>60); Est Glom Filt Rate - Afr Amer 97 mL/min (>60); Estimated Creatinine Clearance 64.58 ml/min; Globulin 4.5 g/dL (2.2-4.2); Glucose 90 mg/dL (74-106); LDH 402 U/L (84-246); Protein, Total 6.9 g/dL (6.4-8.2); Sodium Level 143 mmol/L (136-145)
[2022-01-07] MEDS: Budesonide Respules 0.5 MG/2 ML AMPUL.NEB. INHALATION ×2 (07:03→18:53)
[2022-01-07] MEDS: Albuterol 2.5 MG/3 ML VIAL.NEB. INHALATION ×3 (07:03→18:53)
[2022-01-07 07:15] LABS: Bedside Glucose 124 mg/dL (74-106)
--- NOTE | 2022-01-07 08:07 | PCM.PN.INT ---
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 Diagnostic and therapeutic thoracentesis after 48 hours off of Eliquis 2. Possible transfer to the intensive care unit later today. Avoid Ativan if possible 3. Wean supplemental oxygen as tolerated 4. Consider oncology consult for prognostication 5. Continue antibiotics and steroids IMPRESSIONS: 1. Acute hypoxic respiratory failure secondary to postobstructive pneumonia with Proteus mirabilis with possible aspiration Patient with mediastinal lymphadenopathy and obstruction earlier this month. Patient now growing Proteus with acute decompensation. Patient does have a significant pleural effusion. It is unclear if this is secondary to the small cell lung cancer or a parapneumonic effusion. We will hold Eliquis as patient will require a thoracentesis for diagnostic and therapeutic reasoning. Anticipate pulmonary toileting will be severely limited given obstruction with previous small cell lung cancer and external compression with pleural effusion. Patient did have an abnormal modified swallow study, indicating aspiration may play a role. Continue with speech recommendations 2. Acute kidney injury on CKD stage II Stable. Low clinical suspicion patient will be responsive to diuretics given exudate differential for pleural effusion. Electrolyte repletion as indicated. 3. Paroxysmal A. fib/history of DVT/type 2 diabetes mellitus/advanced small cell lung cancer Complicates care, management, recovery and prognosis. We will need to hold Eliquis given need for thoracentesis. Patient is on Decadron secondary to small cell lung cancer. This will need to be continued, but will also require increased insulin requirements. Consider consult to oncology to discuss prognosis. Patient is stating that she wants to be a full code at this time, but long-term prognosis with brain metastasis in small cell is grim. Subjective Subjective Patient with progressive hypoxia overnight. Patient was on 10 L nasal cannula yesterday, but was unable to come off of BiPAP this morning. Patient was given Ativan to help with compliance. Patient was not interactive during my evaluation with a RASS of -3. Objective Data Objective Data Vital Signs: Vital Signs Temp Pulse Resp BP Pulse Ox O2 Del Method O2 Flow Rate 37.4 C H 104 H 29 H 143/94 H 90 Bi-pap 10 01/07/22 06:51 01/07/22 06:51 01/07/22 06:51 01/07/22 06:51 01/07/22 06:51 01/07/22 06:51 01/07/22 05:01 FiO2 40 01/07/22 05:00 Oxygen Flow Rate (L/min) 10 Oxygen Delivery Method Bi-pap Weight: 60.7 kg Body Mass Index (BMI) 22.9 Intake & Output: Intake and Output for Last 24 Hours 01/05/22 01/06/22 01/07/22 23:59 23:59 23:59 Intake Total 448 / 568 1362.88 / 1362.88 23.12 / 23.12 Output Total 1450 / 1450 775 / 775 600 / 600 Balance -1002 / -882 587.88 / 587.88 -576.88 / -576.88 Medical Nutrition Assessment Dietitian: Malnutrition Criteria Met Start: 01/04/22 11:17 Freq: Status: Active Protocol: Document 01/04/22 11:17 CORAL (Rec: 01/04/22 11:17 [id number]) Nutrition Malnutrition Evidence of Malnutrition Exists Yes Malnutrition (severe): Chronic Evidenced By Suboptimal Energy Intake ( Severe),Weight Loss (Severe) Clinical Problem Chronic Disease or Condition Related Malnutrition Etiology severe, chronic malnutrition related to inadequate energy intake w/ increased energy needs d/t metastatic disease Signs/Symptoms as evidenced by unintentional wt loss of 70.2#/34% x 13 months/ 14.1#/10% <2 months; estimated PO intake meeting < 75% of estimated energy needs >3 months Status Active Problem Recommendation Dietitian Recommendations/Changes regular diet (texture/ consistency per THERAPEUTIC SPECIALIST) given severe malnutrition; will add fortified foods and continue 120mL ensure enlive 4x/day w/ medpass for additional calories/protein if consumed. Lab / Micro Data Result Diagrams: 01/07/22 06:05 01/07/22 06:05 Labs: Laboratory Results - last 24 hr 01/06/22 11:18: POC Glucose 114 H 01/06/22 16:14: POC Glucose 103 01/06/22 21:33: POC Glucose 88 01/07/22 06:05: WBC 13.5 H, RBC 2.66 L, Hgb 8.5 L, Hct 27.5 L, MCV 103.4 H, MCH 32.0, MCHC 30.9 L, RDW Std Deviation 73.1 H, RDW Coeff of Lashonda 19.3 H, Plt Count 149 L, MPV 10.2, Immature Gran % (Auto) 2.700 H, Neut % (Auto) 82.6 H, Lymph % (Auto) 7.3 L, [place] % (Auto) 7.2, Eos % (Auto) 0.0, Baso % (Auto) 0.2, Absolute Neuts (auto) 11.1 H, Absolute Lymphs (auto) 0.98, Nucleated RBC % 0.2, Differential Comment SCANNED, Anisocytosis 1+, Macrocytosis 1+ 01/07/22 06:05: Sodium 143, Potassium 4.0, Chloride 110 H, Carbon Dioxide 26.0, Anion Gap 7, BUN 26 H, Creatinine 0.77, Estim Creat Clear Calc 64.58, Est GFR (MDRD) Af Amer 97, Est GFR (MDRD) Non-Af 80, BUN/Creatinine Ratio 33.7 H, Glucose 90, Calcium 9.4, Total Bilirubin 0.50, Direct Bilirubin 0.16, AST 47 H, ALT 31, Alkaline Phosphatase 78, Lactate Dehydrogenase 402 H, Total Protein 6.9, Albumin 2.4 L, Globulin 4.5 H 01/07/22 06:47: POC Glucose 124 H Micro: Microbiology 01/03/22 19:14 Urine, Catheterized Urine Culture - Final Culture exhibits no growth. 01/04/22 08:20 Sputum, Expectorated/Coughed Gram Stain - Final 01/04/22 08:20 Sputum, Expectorated/Coughed Respiratory Culture - Final Proteus mirabilis 01/03/22 18:00 Blood Culture (Wb) - Port Blood Culture - Preliminary No growth in 48 hours. 01/03/22 19:23 Blood Culture (Wb) - Anticubital Right Blood Culture - Preliminary No growth in 48 hours. 01/03/22 19:14 Urine Catheter - Catheter Legionella Antigen - Final 01/03/22 19:14 Urine Catheter - Catheter Streptococcus pneumoniae Antigen (M - Final ABG Data ABG results: ABG 01/06/22 13:21 Specimen Type ART Sample Site L Radial pH 7.41 Bicarbonate Actual 24.5 Total CO2 26 Base Excess 0 O2 Saturation 94 L ABG pCO2 39.0 ABG pO2 71 L Moises Test N/A Liter Flow 8.0 Radiography Diagnostic Testing: Radiology Impression Chest CTA 01/06/22 12:53 IMPRESSION: Stable mediastinal and right hilar lymphadenopathy with narrowing of the right upper lobe uncus with post obstructive pneumonitis. Slight increase in the right pleural effusion with bibasilar atelectasis worse on the right side evidence of increased markings in the left upper lobe as well as in the right upper lobe. Stable bilateral adrenal masses and the lateral renal cysts. No evidence of pulmonary embolism. Electronically Signed: Carlos Chou MD at 13:50 EDT , Rhythm Strip Rhythm Strip: Sinus Rhythm Rate: 83 Ectopy: None Physical Exam Const oriented x3 Constitutional Narrative: On BiPAP. RASS -3. General Appearance: cooperative, in distress Positive for moderate (Moderate conversational dyspnea), ill appearing and frail HEENT head/scalp atraumatic and moist oral mucous membranes Eyes PERRL, EOMs intact bilaterally and conjunctivae normal Neck no lymphadenopathy, supple and no JVD Resp Resp Narrative: On BiPAP during my evaluation Effort and Inspection: labored Auscultation: rhonchi right lower, wheezes scattered wheezes and diminished lung sounds; Negative for rales Percussion: dullness Lower: right Cardio regular rate, regular rhythm, S1 normal heart sound, S2 normal heart sound, no murmurs, no rub, no gallops and no JVD GI normal to inspection, nondistended, normoactive bowel sounds, soft to palpation, non-tender and non-distended Extremity normal to inspection, full ROM and no clubbing, cyanosis or edema Neuro CN's II-XII intact bilaterally, moves all extremities and no focal motor deficits Neuro Narrative: Not following commands Psych Mood & Affect: anxious Charges/Coding Visit Charges Inpatient E&M: 22728 Subs Hosp L3
--- NOTE | 2022-01-07 09:20 | PN.HOSP_ITS ---
Subjective Subjective Patient seen and examined. She was on BIPAP, and was somnolent. She became more tachypneic, and required increased amounts of oxygen yesterday, so she had a CTA chest which was negative for PE, but showed slight increase in right pleural effusion with bibasilar atelectasis worse on the right side. Pulmonology was c onsulted and antibiotics broadened to IV vancomycin and zosyn. She is on eliquis. Objective Data Objective Data Vital Signs: Vital Signs Temp Pulse Resp BP Pulse Ox O2 Del Method O2 Flow Rate 99.3 F H 104 H 29 H 143/94 H 90 Bi-pap 10 01/07/22 06:51 01/07/22 06:51 01/07/22 06:51 01/07/22 06:51 01/07/22 06:51 01/07/22 08:38 01/07/22 05:01 FiO2 45 01/07/22 08:38 Oxygen Flow Rate (L/min) 10 Oxygen Delivery Method Bi-pap Weight: 133 lb 13.129 oz Body Mass Index (BMI) 22.9 Intake & Output: Intake and Output for Last 24 Hours 01/05/22 01/06/22 01/07/22 23:59 23:59 23:59 Intake Total 448 / 568 1362.88 / 1362.88 223.12 / 223.12 Output Total 1450 / 1450 775 / 775 600 / 600 Balance -1002 / -882 587.88 / 587.88 -376.88 / -376.88 Medical Nutrition Assessment Dietitian: Malnutrition Criteria Met Start: 01/04/22 11:17 Freq: Status: Active Protocol: Document 01/04/22 11:17 (Rec: 01/04/22 11:17 [id number]) Nutrition Malnutrition Evidence of Malnutrition Exists Yes Malnutrition (severe): Chronic Evidenced By Suboptimal Energy Intake ( Severe),Weight Loss (Severe) Clinical Problem Chronic Disease or Condition Related Malnutrition Etiology severe, chronic malnutrition related to inadequate energy intake w/ increased energy needs d/t metastatic disease Signs/Symptoms as evidenced by unintentional wt loss of 70.2#/34% x 13 months/ 14.1#/10% <2 months; estimated PO intake meeting < 75% of estimated energy needs >3 months Status Active Problem Recommendation Dietitian Recommendations/Changes regular diet (texture/ consistency per BINDING MACHINE OPERATOR) given severe malnutrition; will add fortified foods and continue 120mL ensure enlive 4x/day w/ medpass for additional calories/protein if consumed. Lab / Micro Data Result Diagrams: 01/07/22 06:05 01/07/22 06:05 Labs: Laboratory Results - last 24 hr 01/06/22 11:18: POC Glucose 114 H 01/06/22 16:14: POC Glucose 103 01/06/22 21:33: POC Glucose 88 01/07/22 06:05: WBC 13.5 H, RBC 2.66 L, Hgb 8.5 L, Hct 27.5 L, MCV 103.4 H, MCH 32.0, MCHC 30.9 L, RDW Std Deviation 73.1 H, RDW Coeff of Lashonda 19.3 H, Plt Count 149 L, MPV 10.2, Immature Gran % (Auto) 2.700 H, Neut % (Auto) 82.6 H, Lymph % (Auto) 7.3 L, [place] % (Auto) 7.2, Eos % (Auto) 0.0, Baso % (Auto) 0.2, Absolute Neuts (auto) 11.1 H, Absolute Lymphs (auto) 0.98, Nucleated RBC % 0.2, Differential Comment SCANNED, Anisocytosis 1+, Macrocytosis 1+ 01/07/22 06:05: Sodium 143, Potassium 4.0, Chloride 110 H, Carbon Dioxide 26.0, Anion Gap 7, BUN 26 H, Creatinine 0.77, Estim Creat Clear Calc 64.58, Est GFR (MDRD) Af Amer 97, Est GFR (MDRD) Non-Af 80, BUN/Creatinine Ratio 33.7 H, Glucose 90, Calcium 9.4, Total Bilirubin 0.50, Direct Bilirubin 0.16, AST 47 H, ALT 31, Alkaline Phosphatase 78, Lactate Dehydrogenase 402 H, Total Protein 6.9, Albumin 2.4 L, Globulin 4.5 H 01/07/22 06:47: POC Glucose 124 H Micro: Microbiology 01/03/22 19:14 Urine, Catheterized Urine Culture - Final Culture exhibits no growth. 01/04/22 08:20 Sputum, Expectorated/Coughed Gram Stain - Final 01/04/22 08:20 Sputum, Expectorated/Coughed Respiratory Culture - Final Proteus mirabilis 01/03/22 18:00 Blood Culture (Wb) - Port Blood Culture - Preliminary No growth in 48 hours. 01/03/22 19:23 Blood Culture (Wb) - Anticubital Right Blood Culture - Preliminary No growth in 48 hours. 01/03/22 19:14 Urine Catheter - Catheter Legionella Antigen - Final 01/03/22 19:14 Urine Catheter - Catheter Streptococcus pneumoniae Antigen (M - Final ABG Data ABG results: ABG 01/06/22 13:21 Specimen Type ART Sample Site L Radial pH 7.41 Bicarbonate Actual 24.5 Total CO2 26 Base Excess 0 O2 Saturation 94 L ABG pCO2 39.0 ABG pO2 71 L Moises Test N/A Liter Flow 8.0 Radiography Diagnostic Testing: Radiology Impression Chest CTA 01/06/22 12:53 IMPRESSION: Stable mediastinal and right hilar lymphadenopathy with narrowing of the right upper lobe uncus with post obstructive pneumonitis. Slight increase in the right pleural effusion with bibasilar atelectasis worse on the right side evidence of increased markings in the left upper lobe as well as in the right upper lobe. Stable bilateral adrenal masses and the lateral renal cysts. No evidence of pulmonary embolism. Electronically Signed: Carlos Chou MD at 13:50 EDT , Rhythm Strip Rhythm Strip: Sinus Rhythm Rate: 83 Ectopy: None Physical Exam Const Constitutional Narrative: frail, lethargic and somnolent Orientation / Consciousness: confused and lethargic HEENT head/scalp atraumatic and moist oral mucous membranes Eyes PERRL, EOMs intact bilaterally and conjunctivae normal Neck no lymphadenopathy, supple and no JVD Resp Resp Narrative: tachypneic, on BIPAP, bilateral coarse crackles Cardio regular rhythm, S1 normal heart sound, S2 normal heart sound and no murmurs Cardio Narrative: tachycardic GI normal to inspection, nondistended, normoactive bowel sounds, soft to palpation, non-tender and non-distended Extremity normal to inspection, full ROM and no clubbing, cyanosis or edema Neuro Neuro Narrative: very somnolent and lethargic, on BIPAP Assessment & Plan Assessment/Plan (1) NADIYA (acute kidney injury): (2) Hypotension: (3) Aspiration pneumonia: PLAN: Plan #Acute on chronic hypoxic respiratory failure due to Aspiration pneumonia and metastatic lung cancer and worsening right pleural effusion * patient deteriorated yesterday and required being started on BIPAP * CTA chest showed slight increase in right pleural effusion; she is on BIPAP * on IV vancomycin and zosyn. Sputum culture grew Proteus. * for thoracentesis today * very low threshold for transfer to ICU. * * #Hypotension: resolved. #Debility due to aspiration pneumonia and metastatic cancer: PT/OT on board. Fall precautions #NADIYA on CKD II: resolved. Cr is 0.77 #Dysphagia: improved. Speech therapy on board. On modified diet as per speech therapy #TYpe 2 diabetes mellitus * on lantus. ISS. Accuchecks ACHS * #History of DVT: on eliquis; eliquis on hold for thoracentesis today #Paroxysmal afib: on metoprolol. On eliquis. 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 * stable. follow up with oncology on outpatient basis * DVT prophylaxis; on eliquis, which has been held for thoracentesis today. Resume after thoractentesis. Disposition: very low threshold for ICU transfer and intubation as needed. Charges/Coding Visit Charges Inpatient E&M: 23030 [facility] Hosp L3
[2022-01-07 12:25] LABS: Bedside Glucose 91 mg/dL (74-106)
--- NOTE | 2022-01-07 13:47 | RAD_ITS ---
STUDY: X-RAY CHEST REASON FOR EXAM: Female, 61 years old. Post thora TECHNIQUE: AP inspiration and expiration views. COMPARISON: Comparison is made with prior study 01/03/2022. FINDINGS: The patient is status post right thoracentesis. There is no evidence of pneumothorax. RAD/Chest Insp/Exp 2 View IMPRESSION: Status post right thoracentesis. No evidence of pneumothorax. Electronically Signed: Carlos Chou MD at 14:35 EDT ,
--- NOTE | 2022-01-07 14:02 | FLU_PTH ---
PATIENT: CAPRI CORONEL LOC: [facility] U#:[id number] AGE/SX: 61/F ROOM: ICU04 RE01/03/[address]: Dr. Norma Acevedo MD : 1960 BED: 1 DIS: 01/09/2022 SPEC #: [id number] RECD: 01/07/22 14:27 STATUS: GILBERTO RE #: [id number] RANJIT: 01/07/22 14:[address]: Norma Acevedo DEPT: CYTOLOGY RECD BY: Fatoumata Moreno ENTERED: 01/10/22 11:44 SP TYPE: Fluid OTHR DR: July Bridges, CREDIT OPERATIONS PROCESSOR-C MD Dr. Wilfrid Rowe, DO Dr. Andre Langley, MD Dr. Max Gaviria Dr., MD Dr. Jodi Hannan, MD Christina Muller, CREDIT OPERATIONS PROCESSOR-C Stephanie Hardy, CREDIT OPERATIONS PROCESSOR-C Leslie Pacheco, CREDIT OPERATIONS PROCESSOR-C Tissues: Pleural fluid, NOS Procedures: Special Stain Group II Surgery Specimen Level IV Cytospin Fluid HEADER OPERATION: Ultrasound-guided thoracentesis PRE-OP DIAGNOSIS: Right pleural effusion TISSUE SUBMITTED: Thoracentesis fluid for cytology DIAGNOSIS CYTOLOGY Thoracentesis fluid for cytology (cytospin and cell block): Malignant cells present derived from small cell carcinoma. See comment. TIMOTHY:killian 01/11/2022 COMMENT Immunohistochemistry ([id number]) supports the above diagnosis. Please make reference to previous specimens ([id number]), EBUS, TBNA, site 10L with diagnosis of ?small cell carcinoma,? ([id number]) thoracentesis fluid for cytology with diagnosis of ?malignant cells present derived from small cell carcinoma,? and ([id number]) endobronchial biopsy, right middle lobe of lung with diagnosis of ?small cell carcinoma.? CYTOLOGY STUDY Slides are reviewed. CYTOLOGY GROSS Received is 80 ml of light jatinder cloudy fluid labeled with the patient's name and and designated per the requisition as thoracentesis. Submitted for cytology preparation including cell block. / killian 01/10/2022 TC:0 CPT: 41893, 08279
[2022-01-07 14:27] LABS: Cytology, Body Fluid / CSF SEE PATHOLOGY REPORT
--- NOTE | 2022-01-07 14:58 | US_ITS ---
PROCEDURE: ULTRASOUND GUIDED THORACENTESIS. DATE: 01/07/2021. INDICATION: Female, 61 years old. Right pleural effusion. PHYSICIAN: Carlos Chou M.D. PROCEDURE: The risks, benefits, and alternatives to the procedure were explained to the patient. The specific risks of bleeding, infection, and pneumothorax requiring chest tube insertion were discussed and accepted. Written informed consent was obtained. Ultrasonographic evaluation of the right lower pleural space was carried out. An adequate pocket was identified. The patient was placed in the sitting, upright position. The overlying skin was prepped and draped in sterile fashion. 1% lidocaine was administered subcutaneously for local anesthesia. Under ultrasound guidance, a 5 [place] thoracentesis needle/catheter system was advanced into the right posterior lower pleural fluid collection. Approximately 950 mL of jatinder-colored fluid was drained. The catheter was removed, and a sterile dressing was applied. A specimen was collected and sent to the laboratory for analysis, as requested by the referring clinician. The patient tolerated the procedure well. A chest x-ray was ordered. US/Thoracentesis W US IMPRESSION: Ultrasound-guided right thoracentesis. Electronically Signed: Carlos Chou MD at 15:02 EDT ,
[2022-01-07 15:04] LABS: Body Fluid Mononuclear WBC % 95.2 %; Body Fluid Polynuclear WBC # 0.014 10^3/uL; Body Fluid Polynuclear WBC % 4.8 %; Body Fluid Total Cells Counted 0.365 10^3/ul; White Blood Count/Body Fluid 0.294 10^3/uL
[2022-01-07 15:25] LABS: LDH,Body Fluid 139 Units/l (Not Establ.)
[2022-01-07 15:28] LABS: Protein, Body Fluid 1.2 g/dL (Not Establ.)
[2022-01-07 15:43] LABS: Glucose, Body Fluid 97 mg/dL (40-70)
[2022-01-07 16:30] LABS: Bedside Glucose 100 mg/dL (74-106)
[2022-01-07 17:56] LABS: Lymphocytes 36 %; Macrophages 4 %; Mesothelial Cells 39 %; Monocytes 5 %; Neutrophil (Segs) 16 %
[2022-01-07 18:00] LABS: Appearance/Body Fluid SL CLDY; Auto B Fluid Analyzer BKGD Ct COUNTS W/IN LIMITS (W/IN LIMITS); Color/Body Fluid LT YEL; Red Cell Count/Body Fluid 1575 /mm3; Source- Body Fluid THORACENTESIS
[2022-01-07 18:01] LABS: Body Fluid QC Type(s) BF3Q
[2022-01-07] MEDS: Metoprolol Tartrate 5 MG/5 ML Vial IV (20:12)
[2022-01-07] MEDS: LORazepam 2 MG/ML Syringe 0.5 MG IV (20:13)
[2022-01-07 22:01] LABS: Bedside Glucose 135 mg/dL (74-106)
[2022-01-07] MEDS: dexAMETHasone 4 MG/ML Vial IV (23:12)
[2022-01-07] MEDS: 0.9% Normal Saline 1,000 ML 999 ML IV (23:30)
--- NOTE | 2022-01-07 23:34 | SEPSISNOTE ---
Sepsis Note Physical Exam/Vitals Objective: Chest X-Ray 01/07/22 13:47 IMPRESSION: Status post right thoracentesis. No evidence of pneumothorax. Electronically Signed: Carlos Chou MD at 14:35 EDT , Thoracentesis Ultrasound 01/07/22 14:58 IMPRESSION: Ultrasound-guided right thoracentesis. Electronically Signed: Carlos Chou MD at 15:02 EDT , Temp Pulse Resp BP Pulse Ox O2 Del Method O2 Flow Rate 97.5 F L 107 H 33 H 100/69 93 Bi-pap 15 01/07/22 21:00 01/07/22 21:00 01/07/22 21:00 01/07/22 21:00 01/07/22 21:00 01/07/22 21:00 01/07/22 13:55 FiO2 50 01/07/22 21:00 01/07/22 01/07/22 01/07/22 21:35 15:56 14:02 WBC RBC Hgb Hct MCV MCH MCHC RDW Std Deviation RDW Coeff of Lashonda Plt Count MPV Immature Gran % (Auto) Neut % (Auto) Lymph % (Auto) [place] % (Auto) Eos % (Auto) Baso % (Auto) Absolute Neuts (auto) Absolute Lymphs (auto) Nucleated RBC % Differential Comment Anisocytosis Macrocytosis Sodium Potassium Chloride Carbon Dioxide Anion Gap BUN Creatinine Estim Creat Clear Calc Est GFR (MDRD) Af Amer Est GFR (MDRD) Non-Af BUN/Creatinine Ratio Glucose Calcium Total Bilirubin Direct Bilirubin AST ALT Alkaline Phosphatase Lactate Dehydrogenase Total Protein Albumin Globulin Fluid Source Fluid Color Fluid Appearance Fluid WBC Fluid RBC Fluid Tot Cell Count Fld Polynuclear WBCs # Fld Polynuclear WBCs % Fluid Mononuclear WBCs Fld Mononuclear WBCs % Fluid Neutrophils Fluid Lymphocytes Fluid Monocytes Fluid Macrophages Fld Mesothelial Cells Fl Pathologist Comment Fluid Glucose Fluid Total Protein Fluid LDH Fluid Comment 2 Miscellaneous Cytology Pending POC Glucose 135 H 100 01/07/22 01/07/22 01/07/22 14:02 14:02 14:02 WBC RBC Hgb Hct MCV MCH MCHC RDW Std Deviation RDW Coeff of Lashonda Plt Count MPV Immature Gran % (Auto) Neut % (Auto) Lymph % (Auto) [place] % (Auto) Eos % (Auto) Baso % (Auto) Absolute Neuts (auto) Absolute Lymphs (auto) Nucleated RBC % Differential Comment Anisocytosis Macrocytosis Sodium Potassium Chloride Carbon Dioxide Anion Gap BUN Creatinine Estim Creat Clear Calc Est GFR (MDRD) Af Amer Est GFR (MDRD) Non-Af BUN/Creatinine Ratio Glucose Calcium Total Bilirubin Direct Bilirubin AST ALT Alkaline Phosphatase Lactate Dehydrogenase Total Protein Albumin Globulin Fluid Source THORACENTESIS Fluid Color LT YEL Fluid Appearance SL CLDY Fluid WBC 0.294 Fluid RBC 1575 Fluid Tot Cell Count 0.365 H Fld Polynuclear WBCs # 0.014 Fld Polynuclear WBCs % 4.8 Fluid Mononuclear WBCs 0.280 Fld Mononuclear WBCs % 95.2 Fluid Neutrophils 16 Fluid Lymphocytes 36 Fluid Monocytes 5 Fluid Macrophages 4 Fld Mesothelial Cells 39 Fl Pathologist Comment May follow Fluid Glucose 97 H Fluid Total Protein 1.2 Fluid LDH Fluid Comment 2 SEE COMMENT Miscellaneous Cytology POC Glucose 01/07/22 01/07/22 01/07/22 14:02 12:04 06:47 WBC RBC Hgb Hct MCV MCH MCHC RDW Std Deviation RDW Coeff of Lashonda Plt Count MPV Immature Gran % (Auto) Neut % (Auto) Lymph % (Auto) [place] % (Auto) Eos % (Auto) Baso % (Auto) Absolute Neuts (auto) Absolute Lymphs (auto) Nucleated RBC % Differential Comment Anisocytosis Macrocytosis Sodium Potassium Chloride Carbon Dioxide Anion Gap BUN Creatinine Estim Creat Clear Calc Est GFR (MDRD) Af Amer Est GFR (MDRD) Non-Af BUN/Creatinine Ratio Glucose Calcium Total Bilirubin Direct Bilirubin AST ALT Alkaline Phosphatase Lactate Dehydrogenase Total Protein Albumin Globulin Fluid Source Fluid Color Fluid Appearance Fluid WBC Fluid RBC Fluid Tot Cell Count Fld Polynuclear WBCs # Fld Polynuclear WBCs % Fluid Mononuclear WBCs Fld Mononuclear WBCs % Fluid Neutrophils Fluid Lymphocytes Fluid Monocytes Fluid Macrophages Fld Mesothelial Cells Fl Pathologist Comment Fluid Glucose Fluid Total Protein Fluid LDH 139 Fluid Comment 2 Miscellaneous Cytology POC Glucose 91 124 H 01/07/22 01/07/22 06:05 06:05 WBC 13.5 H RBC 2.66 L Hgb 8.5 L Hct 27.5 L MCV 103.4 H MCH 32.0 MCHC 30.9 L RDW Std Deviation 73.1 H RDW Coeff of Lashonda 19.3 H Plt Count 149 L MPV 10.2 Immature Gran % (Auto) 2.700 H Neut % (Auto) 82.6 H Lymph % (Auto) 7.3 L [place] % (Auto) 7.2 Eos % (Auto) 0.0 Baso % (Auto) 0.2 Absolute Neuts (auto) 11.1 H Absolute Lymphs (auto) 0.98 Nucleated RBC % 0.2 Differential Comment SCANNED Anisocytosis 1+ Macrocytosis 1+ Sodium 143 Potassium 4.0 Chloride 110 H Carbon Dioxide 26.0 Anion Gap 7 BUN 26 H Creatinine 0.77 Estim Creat Clear Calc 64.58 Est GFR (MDRD) Af Amer 97 Est GFR (MDRD) Non-Af 80 BUN/Creatinine Ratio 33.7 H Glucose 90 Calcium 9.4 Total Bilirubin 0.50 Direct Bilirubin 0.16 AST 47 H ALT 31 Alkaline Phosphatase 78 Lactate Dehydrogenase 402 H Total Protein 6.9 Albumin 2.4 L Globulin 4.5 H Fluid Source Fluid Color Fluid Appearance Fluid WBC Fluid RBC Fluid Tot Cell Count Fld Polynuclear WBCs # Fld Polynuclear WBCs % Fluid Mononuclear WBCs Fld Mononuclear WBCs % Fluid Neutrophils Fluid Lymphocytes Fluid Monocytes Fluid Macrophages Fld Mesothelial Cells Fl Pathologist Comment Fluid Glucose Fluid Total Protein Fluid LDH Fluid Comment 2 Miscellaneous Cytology POC Glucose Attestation Sepsis Attestation: Sepsis re-evaluation was performed
--- NOTE | 2022-01-07 23:57 | PCM.PN.BLA ---
Progress Note Intubation Indication: Acute hypoxemic respiratory failure Consent was was not obtained since it was emergent. The patient was placed in the appropriate sniffing position. Preoxygenated sedation via bipap that patient was already on. The patient had continuous cardiac as well as pulse oximetry monitoring during the procedure. Procedure sedation was provided by the administration of etomidate 20 mg IV and succinylcholine 100 mg IV. Direct laryngoscopy was then performed using a number 3 blade, which revealed a grade 2 view. A 7.5 mm endotracheal tube was visualized advancing between the cords to the level of 22 cm at the lip. The stylette was then removed and discarded. Tube placement was confirmed by fogging in the tube along with equal and bilateral breath sounds. Colorimetric change was visualized on the CO2 meter. The cuff was then inflated and the tube secured using a commercially available device. A good pulse oximetry waveform was seen on the monitor throughout the procedure. A portable chest x-ray has been ordered to confirm appropriate placement. The patient tolerated the procedure well. Procedures Hospitalists Procedures: [id number] Insert Emergency Airway
[2022-01-08] VITALS (49 sets, daily range): BP systolic 75–104; BP diastolic 49–67; PULSE 91–129; RESP 12–32; TEMP 36–36.6; O2SAT 94–100
--- NOTE | 2022-01-08 00:15 | RAD_ITS ---
INDICATION: ET tube placement; OG tube placement EXAMINATION/TECHNIQUE: X-RAY - XR Chest 1 View COMPARISON: 01/07/2022 FINDINGS: LINES/DEVICES: Endotracheal tube terminates 2 cm above the ender. Enteric tube in satisfactory position. Left port catheter remains in similar position terminating in the right atrium.. LUNGS: Bilateral hazy and patchy opacities, right greater than left, similar compared to the prior. Small right pleural effusion. MEDIASTINUM AND CARDIOVASCULAR STRUCTURES: Atherosclerotic calcifications and cardia mediastinal contours, similar compared to the prior. BONES AND SOFT TISSUES: Sclerotic changes in the L1 and L3 vertebral bodies, similar compared to the prior. L4-S1 posterior spine fusion hardware. No acute osseous abnormality.. RAD/Chest 1 View (Portable) IMPRESSION: 1. Endotracheal tube terminates 2 cm above the ender. 2. Enteric tube in satisfactory position. 3. Bilateral airspace opacities, similar compared to the prior. 4. Small right pleural effusion. Electronically Signed: Caleb Xiong MD at 0:39 EDT ,
--- NOTE | 2022-01-08 00:20 | NURSING ---
Pt repositioned in bed around 23:25. SBP dropped to 80s, HR elevated, and respiratory rate remained in the 30s. Dr. Lynch notified and came to bedside. Ordered 1 liter bolus to be started stat, and decided to send pt to ICU. Respiratory Therapy assisted at bedside to transfer pt to ICU bed 4 where she was then intubated. Daughter Harriet (ERIKA), called and informed. She stated she would inform the rest of the family and had no other questions.
--- NOTE | 2022-01-08 00:41 | NURSING ---
2340: Pt arrived from PCU to ICU bed 4. Dr. Lynch at bedside to prepare for RSI. 2348: HR 110, RR 30, SpO2 100% on 100% BIPAP, 100/72 2349: 20 mg etomidate and then 100 mg succ IVP given by [place], MACK 2351: Intubated by Dr. Lynch, 7.5, 22 cc @ lip. Positive color change, BL breath sounds. 2352: BP 92/67, HR 108, RR 20, 100%. OG inserted by Panchito Barriga RN.
[2022-01-08] MEDS: Furosemide 40 MG/4 ML Vial IV (01:05)
--- NOTE | 2022-01-08 01:13 | PCM.PN.BLA ---
Progress Note Patient working hard to breathe and with hypotension with systolic blood pressure less than 80. Patient was observed at bedside. Physical Exam Narrative Physical exam: General: Elderly frail female on BiPAP.. Head: Normocephalic, atraumatic, no tenderness Eyes: Patient with eyes closed. Extraocular muscle not assessed. ENT, no trauma, moist mucous membranes, no rhinorrhea CVS: Tachycardia. S1-S2 present. No murmur, gallop or rub. Respiratory : Tachypnea; using accessory muscles of respiration. Abdomen: Soft, nontender, nondistended, normal bowel sounds, no masses : Deferred Back: Nontender, no CVA tenderness, no midline spinal tenderness, Extremities: Nontender full;no trauma Skin: Normal color, no trauma, abrasions Neuro: Obtunded. Psychiatry: Obtunded. Assessment & Plan Assessment/Plan (1) Septic shock: PLAN: Patient meet SIRS criteria with heart rate more than 90. Systolic blood pressure was less than 90. Patient respiratory rate was more than 22. qSOFA is 3. Check lactic acid. Check BMP and CBC. Patient requiring BiPAP and then intubated We will continue vancomycin and Zosyn. PLAN: Plan Critical care time spent 45 minutes from 22:15 to 2300 on 01/08/2022: Critical care time involved time at the bedside; discussing case with respiratory therapists and nurses, and review of charts. Procedures Hospitalists Procedures: [id number] Critial Care 1st Hr
[2022-01-08 01:52] LABS: Absolute Lymphocyte Count 0.36 X10^3/uL (0.83-4.51); Absolute Neutrophil Count 13.4 X10^3/uL (2.0-7.7); Basophil# 0.02 X10^3/uL; Basophil% 0.1 % (0-1); Hematocrit 28.2 % (37-47); Hemoglobin 8.6 g/dL (12.0-15.0); Lymphocyte # 0.36 X10^3/ul (0.83-4.51); Lymphocyte % 2.4 % (19-41); Mean Corp Hgb Conc 30.5 g/dL (32-36); Mean Corpuscular Hgb 32.1 pg (27.0-32.0); Mean Corpuscular Volume 105.2 fL (81-99); Monocyte# 0.77 X10^3/uL; Monocyte% 5.1 % (0-10); NRBC Flagged by Analyzer 1.7 % (0-5); Neutrophil # 13.44 X10^3/uL (2.7-7.7); Neutrophil % 89.2 % (47-70); POSITIVE DIFFERENTIAL YES; POSITIVE MORPHOLOGY YES; Platelet Count 162 K/mm3 (150-450); RBC Distribution Width CV 19.7 % (11.6-14.6); Red Blood Count 2.68 M/mm3 (4.2-5.4); White Blood Count 15.1 K/mm3 (4.4-11.0)
[2022-01-08 01:55] LABS: Differential Indicated SCAN CRITERIA MET
[2022-01-08 02:09] LABS: Anion Gap 10 (5-15); BUN 42 mg/dL (7-18); BUN/Creat Ratio 23.5 RATIO (10-20); Chloride 110 mmol/L (98-107); Creatinine, Serum 1.79 mg/dL (0.55-1.02); EST Glomerular Filtration Rate 30 mL/min (>60); Est Glom Filt Rate - Afr Amer 37 mL/min (>60); Estimated Creatinine Clearance 27.78 ml/min; Glucose 150 mg/dL (74-106); Potassium 4.1 mmol/L (3.5-5.1); Sodium Level 143 mmol/L (136-145)
[2022-01-08 02:16] LABS: Lactic Acid 1.9 mmol/L (0.4-1.9)
[2022-01-08 02:18] LABS: Anisocytosis 1+; Differential Comment SCANNED; Hypochromasia RARE; Macrocytosis 1+
[2022-01-08 02:36] LABS: Base Excess -5 mmol/L (-2 to +2); Bicarbonate 20.8 mmol/L (22-26); Blood Gas Specimen Type ART; FI02 75; Mode AC; O2 Delivery Device Adult Vent; PEEP 5; PO2 116 mmHG (75-100); RR 14; SITE L Radial; SO2 98 % (95-99); Total Carbon Dioxide 22 mmol/L; Vt 450; pCO2 37.5 mmHg (35-45); pH 7.35 (7.35-7.45)
[2022-01-08] MEDS: Magnesium Sulfate 4gm/100mL 4 GM/100 ML IV.SOLN. IV (03:30)
--- NOTE | 2022-01-08 03:30 | NURSING ---
Teaching unable to be completed d/t pt condition and lack of family being present.
[2022-01-08] MEDS: 0.9% Saline Lock 10 ML Syringe IV ×2 (04:22→06:39)
[2022-01-08 06:32] LABS: Absolute Lymphocyte Count 0.82 X10^3/uL (0.83-4.51); Absolute Neutrophil Count 10.6 X10^3/uL (2.0-7.7); Basophil# 0.02 X10^3/uL; Basophil% 0.2 % (0-1); Hematocrit 27.4 % (37-47); Hemoglobin 8.3 g/dL (12.0-15.0); Lymphocyte # 0.82 X10^3/ul (0.83-4.51); Lymphocyte % 6.6 % (19-41); Mean Corp Hgb Conc 30.3 g/dL (32-36); Mean Corpuscular Hgb 32.2 pg (27.0-32.0); Mean Corpuscular Volume 106.2 fL (81-99); Mean Platelet Vol. 9.9 fl (6.2-12.0); Monocyte# 0.56 X10^3/uL; Monocyte% 4.5 % (0-10); NRBC Flagged by Analyzer 0.9 % (0-5); Neutrophil # 10.63 X10^3/uL (2.7-7.7); Neutrophil % 85.7 % (47-70); POSITIVE MORPHOLOGY YES; Platelet Count 142 K/mm3 (150-450); RBC Distribution Width CV 19.4 % (11.6-14.6); RBC Distribution Width SD 76.1 fl (35.1-43.9); Red Blood Count 2.58 M/mm3 (4.2-5.4); White Blood Count 12.4 K/mm3 (4.4-11.0)
[2022-01-08 06:33] LABS: Differential Indicated SCAN CRITERIA MET
--- NOTE | 2022-01-08 06:35 | PN.CC_ITS ---
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 Gather family for goals discussion 2. Continue broad-spectrum antibiotics pending cultures 3. Spontaneous breathing and awakening trials per protocol 4. Consider oncology consult for prognostication 5. Continue antibiotics and steroids IMPRESSIONS: 1. Acute hypoxic respiratory failure secondary to postobstructive pneumonia with Proteus mirabilis with possible aspiration Patient with mediastinal lymphadenopathy and obstruction earlier this month. Patient now growing Proteus with acute decompensation. Patient does have a significant pleural effusion. It is unclear if this is secondary to the small cell lung cancer or a parapneumonic effusion. Chest x-ray appears to be improved following thoracentesis. Patient did have 950 cc removed, but elevated diaphragm is suggestive of atelectasis, likely of the right middle lobe. Repeat cultures have been sent. We will continue with antibiotics, but significant concern for progression of cancer and poor metabolic reserve affecting prognosis. 2. Acute kidney injury on CKD stage II Stable. Low clinical suspicion patient will be responsive to diuretics given exudate differential for pleural effusion. Electrolyte repletion as indicated. 3. Paroxysmal A. fib/history of DVT/type 2 diabetes mellitus/advanced small cell lung cancer Complicates care, management, recovery and prognosis. Okay to initiate Eliquis from my perspective. Patient is on Decadron secondary to small cell lung cancer. This will need to be continued, but will also require increased insulin requirements. Consider consult to oncology to discuss prognosis. Patient is stating that she wants to be a full code at this time, but long-term prognosis with brain metastasis in small cell is grim. Family needs to be contacted to process additional information. 4. Hypotension Unclear etiology. Patient did not have an ABG prior to intubation, but acidosis with hypoxia would be a concern. Patient does have significant mediastinal lymphadenopathy, so decreased venous return would also be a concern. Patient is currently on Decadron, so adrenal insufficiency would be unlikely. Medication effect is also a concern. Patient does have a positive culture so sepsis could be present, but patient has been on broad-spectrum antibiotics for over 48 hours prior to the development of hypotension. TIME: 38 minutes critical care time spent addressing patient's hypotension, respiratory failure, acute kidney injury, review of all data and collaboration with care team. Subjective Subjective Overnight events reviewed. Patient was given Ativan with progressive decrease in respiratory status despite thoracentesis yesterday. Thoracentesis reportedly went well with almost a liter removed. However, patient intubated overnight. Patient currently is intubated and sedated, so no further information can be provided. Objective Data Objective Data Thoracentesis was completed. Labs are consistent with a transudate etiology. Does not appear to be signs of parapneumonic effusion. Repeat cultures following intubation are pending. Vital Signs: Vital Signs Temp Pulse Resp BP Pulse Ox O2 Del Method O2 Flow Rate 36.6 C 95 17 80/58 L 95 Mechanical Ventilator 15 01/08/22 04:00 01/08/22 06:00 01/08/22 06:00 01/08/22 06:00 01/08/22 06:00 01/08/22 06:00 01/07/22 13:55 FiO2 50 01/08/22 06:00 Oxygen Flow Rate (L/min) [3] 15 Oxygen Flow Rate (L/min) [2] 15 Oxygen Flow Rate (L/min) [1 ( 15 Initial Baseline)] Oxygen Flow Rate (L/min) 10 Oxygen Delivery Method [3] High Flow Oxygen Delivery Method [2] High Flow Oxygen Delivery Method [1 ( High Flow Initial Baseline)] Oxygen Delivery Method Mechanical Ventilator Weight: 57.5 kg Body Mass Index (BMI) 22.9 Intake & Output: Intake and Output for Last 24 Hours 01/06/22 01/07/22 01/08/22 23:59 23:59 23:59 Intake Total 1362.88 / 1362.88 523.12 / 523.12 938.03 / 938.03 Output Total 775 / 775 1900 / 1900 Balance 587.88 / 587.88 -1376.88 / -1376.88 938.03 / 938.03 Medical Nutrition Assessment Dietitian: Malnutrition Criteria Met Start: 01/04/22 11:17 Freq: Status: Active Protocol: Document 01/07/22 14:08 CORAL (Rec: 01/07/22 14:08 [id number]) Nutrition Malnutrition Evidence of Malnutrition Exists Yes Malnutrition (severe): Chronic Evidenced By Suboptimal Energy Intake ( Severe),Weight Loss (Severe) Clinical Problem Chronic Disease or Condition Related Malnutrition Etiology severe, chronic malnutrition related to inadequate energy intake w/ increased energy needs d/t metastatic disease Signs/Symptoms as evidenced by unintentional wt loss of 70.2#/34% x 13 months/ 14.1#/10% <2 months; estimated PO intake meeting < 75% of estimated energy needs >3 months Status Active Problem Recommendation Dietitian Recommendations/Changes 1) regular diet (texture/ consistency per DESIGN PAINTER) given severe malnutrition; add fortified foods and 120mL ensure enlive 4x/day w/ medpass for additional calories/protein if consumed. 2) If unable to advance PO diet, need to consider enteral nutrition support- consult RD for additional recommendations if indicated. 3) Daily wts. Lab / Micro Data Attestation: I reviewed the patient's lab results. Result Diagrams: 01/08/22 06:25 01/08/22 01:44 Labs: Laboratory Results - last 24 hr 01/07/22 06:05: Differential Comment SCANNED, Anisocytosis 1+, Macrocytosis 1+ 01/07/22 06:05: Sodium 143, Potassium 4.0, Chloride 110 H, Carbon Dioxide 26.0, Anion Gap 7, BUN 26 H, Creatinine 0.77, Estim Creat Clear Calc 64.58, Est GFR (MDRD) Af Amer 97, Est GFR (MDRD) Non-Af 80, BUN/Creatinine Ratio 33.7 H, Glucose 90, Calcium 9.4, Total Bilirubin 0.50, Direct Bilirubin 0.16, AST 47 H, ALT 31, Alkaline Phosphatase 78, Lactate Dehydrogenase 402 H, Total Protein 6.9, Albumin 2.4 L, Globulin 4.5 H 01/07/22 06:47: POC Glucose 124 H 01/07/22 12:04: POC Glucose 91 01/07/22 14:02: Fluid LDH 139 01/07/22 14:02: Fluid Glucose 97 H 01/07/22 14:02: Fluid Total Protein 1.2 01/07/22 14:02: Fluid Source THORACENTESIS, Fluid Color LT YEL, Fluid Appearance SL CLDY, Fluid WBC 0.294, Fluid RBC 1575, Fluid Tot Cell Count 0.365 H, Fld Polynuclear WBCs # 0.014, Fld Polynuclear WBCs % 4.8, Fluid Mononuclear WBCs 0.280, Fld Mononuclear WBCs % 95.2, Fluid Neutrophils 16, Fluid Lymphocytes 36, Fluid Monocytes 5, Fluid Macrophages 4, Fld Mesothelial Cells 39, Fl Pathologist Comment May follow, Fluid Comment 2 SEE COMMENT 01/07/22 15:56: POC Glucose 100 01/07/22 21:35: POC Glucose 135 H 01/08/22 01:44: Lactic Acid 1.9 01/08/22 01:44: WBC 15.1 H, RBC 2.68 L, Hgb 8.6 L, Hct 28.2 L, MCV 105.2 H, MCH 32.1 H, MCHC 30.5 L, RDW Std Deviation 76.0 H, RDW Coeff of Lash[place] 19.7 H, Plt Count 162, MPV 10.0, Immature Gran % (Auto) 3.200 H, Neut % (Auto) 89.2 H, Lymph % (Auto) 2.4 L, [place] % (Auto) 5.1, Eos % (Auto) 0.0, Baso % (Auto) 0.1, Absolute Neuts (auto) 13.4 H, Absolute Lymphs (auto) 0.36 L, Nucleated RBC % 1.7, Differential Comment SCANNED, Hypochromasia RARE, Anisocytosis 1+, Macrocytosis 1+ 01/08/22 01:44: Sodium 143, Potassium 4.1, Chloride 110 H, Carbon Dioxide 23.0, Anion Gap 10, BUN 42 H, Creatinine 1.79 H, Estim Creat Clear Calc 27.78, Est GFR (MDRD) Af Amer 37 L, Est GFR (MDRD) Non-Af 30 L, BUN/Creatinine Ratio 23.5 H, Glucose 150 H, Calcium 9.0 01/08/22 01:44: Magnesium 2.0 01/08/22 06:25: WBC 12.4 H, RBC 2.58 L, Hgb 8.3 L, Hct 27.4 L, MCV 106.2 H, MCH 32.2 H, MCHC 30.3 L, RDW Std Deviation 76.1 H, RDW Coeff of [place] 19.4 H, Plt Count 142 L, MPV 9.9, Immature Gran % (Auto) 3.000 H, Neut % (Auto) 85.7 H, Lymph % (Auto) 6.6 L, [place] % (Auto) 4.5, Eos % (Auto) 0.0, Baso % (Auto) 0.2, Absolute Neuts (auto) 10.6 H, Absolute Lymphs (auto) 0.82 L, Nucleated RBC % 0.9 Micro: Microbiology 01/03/22 19:14 Urine, Catheterized Urine Culture - Final Culture exhibits no growth. 01/04/22 08:20 Sputum, Expectorated/Coughed Gram Stain - Final 01/04/22 08:20 Sputum, Expectorated/Coughed Respiratory Culture - Final Proteus mirabilis 01/03/22 18:00 Blood Culture (Wb) - Port Blood Culture - Preliminary No growth in 48 hours. 01/03/22 19:23 Blood Culture (Wb) - Anticubital Right Blood Culture - Prelim inary No growth in 48 hours. 01/03/22 19:14 Urine Catheter - Catheter Legionella Antigen - Final 01/03/22 19:14 Urine Catheter - Catheter Streptococcus pneumoniae Antigen (M - Final ABG Data ABG results: ABG 01/08/22 02:29 Specimen Type ART Sample Site L Radial pH 7.35 Bicarbonate Actual 20.8 L Total CO2 22 Base Excess -5 L O2 Saturation 98 O2 % 75 ABG pCO2 37.5 ABG pO2 116 H Moises Test N/A Respiration Rate 14 O2 Delivery Device Adult Vent Vent Mode AC Tidal Volume 450 POC PEEP 5 Attestation: I personally reviewed and interpreted this ABG as follows: (Partially compensated metabolic acidosis with increased AA gradient) Radiography Diagnostic Testing: Radiology Impression Chest X-Ray 01/07/22 13:47 IMPRESSION: Status post right thoracentesis. No evidence of pneumothorax. Electronically Signed: Carlos Chou MD at 14:35 EDT , Thoracentesis Ultrasound 01/07/22 14:58 IMPRESSION: Ultrasound-guided right thoracentesis. Electronically Signed: Carlos Chou MD at 15:02 EDT , Chest X-Ray 01/08/22 00:15 IMPRESSION: 1. Endotracheal tube terminates 2 cm above the ender. 2. Enteric tube in satisfactory position. 3. Bilateral airspace opacities, similar compared to the prior. 4. Small right pleural effusion. Electronically Signed: Caleb Xiong MD at 0:39 EDT , Rhythm Strip Rhythm Strip: Sinus Rhythm Rate: 96 Ectopy: None Physical Exam Const Constitutional Narrative: RASS -3. General Appearance: cooperative, ill appearing, frail and patient mechanically ventilated; Negative for in distress HEENT head/scalp atraumatic and moist oral mucous membranes HEENT Narrative: Alopecia noted Eyes PERRL, EOMs intact bilaterally and conjunctivae normal Neck no lymphadenopathy, supple and no JVD Resp Resp Narrative: No bleeding complications noted at thoracentesis site Effort and Inspection: prolonged expiratory phase; Negative for actively coughing Auscultation: rhonchi right lower, wheezes scattered wheezes and diminished lung sounds; Negative for rales Percussion: Negative for dullness Cardio regular rate, regular rhythm, S1 normal heart sound, S2 normal heart sound, no murmurs, no rub, no gallops and no JVD GI normal to inspection, nondistended, normoactive bowel sounds, soft to palpation, non-tender and non-distended Extremity normal to inspection, full ROM and no clubbing, cyanosis or edema Neuro moves all extremities and no focal motor deficits Neuro Narrative: Not following commands Sensorium / Orientation: sedated on vent RASS: -3 Motor Exam: strength 5/5 throughout Psych Mood & Affect: flat affect Charges/Coding Procedures Hospitalists Procedures: [id number] Critial Care 1st Hr
[2022-01-08] MEDS: TITRATION PARAMETER CHANGE 1 EACH IV (06:39)
[2022-01-08 06:44] LABS: Anion Gap 11 (5-15); BUN 45 mg/dL (7-18); Chloride 108 mmol/L (98-107); Creatinine, Serum 1.61 mg/dL (0.55-1.02); EST Glomerular Filtration Rate 34 mL/min (>60); Est Glom Filt Rate - Afr Amer 42 mL/min (>60); Estimated Creatinine Clearance 30.88 ml/min; Glucose 171 mg/dL (74-106); Potassium 3.8 mmol/L (3.5-5.1); Sodium Level 143 mmol/L (136-145)
[2022-01-08 06:45] LABS: Bedside Glucose 154 mg/dL (74-106)
[2022-01-08 06:51] LABS: Anisocytosis 1+; Differential Comment SCANNED; Macrocytosis 1+
[2022-01-08 07:20] LABS: Vancomycin, Trough Level 33.2 ug/mL (5.0-15.0)
[2022-01-08] MEDS: Budesonide Respules 0.5 MG/2 ML AMPUL.NEB. INHALATION ×2 (07:31→19:27)
[2022-01-08] MEDS: Albuterol 2.5 MG/3 ML VIAL.NEB. INHALATION ×3 (07:31→19:27)
--- NOTE | 2022-01-08 08:02 | PCM.RX.CS ---
Consult Pharmacy has been consulted to manage selected antiobiotic: Vancomycin Type of Consult: Follow-up Suspected Infection: Pneumonia Labs: Sodium 143 mmol/L (136-145) 01/08/22 06:25 Potassium 3.8 mmol/L (3.5-5.1) 01/08/22 06:25 Chloride 108 mmol/L (98-107) H 01/08/22 06:25 Carbon Dioxide 24.0 mmol/L (21.0-32.0) 01/08/22 06:25 Anion Gap 11 (5-15) 01/08/22 06:25 BUN 45 mg/dL (7-18) H 01/08/22 06:25 Creatinine 1.61 mg/dL (0.55-1.02) H 01/08/22 06:25 Est GFR (MDRD) Af Amer 42 mL/min (>60) L 01/08/22 06:25 Est GFR (MDRD) Non-Af 34 mL/min (>60) L 01/08/22 06:25 BUN/Creatinine Ratio 28.0 RATIO (10-20) H 01/08/22 06:25 Glucose 171 mg/dL (74-106) H 01/08/22 06:25 Vancomycin Trough 33.2 ug/mL (5.0-15.0) H 01/08/22 06:25 Microbiology: Microbiology 01/03/22 19:14 Urine, Catheterized Urine Culture - Final Culture exhibits no growth. 01/04/22 08:20 Sputum, Expectorated/Coughed Gram Stain - Final 01/04/22 08:20 Sputum, Expectorated/Coughed Respiratory Culture - Final Proteus mirabilis 01/03/22 18:00 Blood Culture (Wb) - Port Blood Culture - Preliminary No growth in 48 hours. 01/03/22 19:23 Blood Culture (Wb) - Anticubital Right Blood Culture - Preliminary No growth in 48 hours. 01/03/22 19:14 Urine Catheter - Catheter Legionella Antigen - Final 01/03/22 19:14 Urine Catheter - Catheter Streptococcus pneumoniae Antigen (M - Final Goal Trough: 15-20 mcg/mL Pharmacy Plan for Drug Dosing: VANCOMYCIN LEVEL RECEIVED Current Vancomycin Dose: 1000mg IV Q12h Number of Doses Received: 3 (initial + 2 scheduled doses) Vancomycin Level: 33.2 Hours Since Last Dose: 13hr Renal Function: 1.61 / 30 mL/min Renal Function Trend: significant worsening from yesterday Lab/Micro: SCx growing P. mirabilis, repeat Cx pending Vancomycin Plan/Comments: Patient with vancomycin trough of 33.2 (goal 15-20). Likely d/t worsening renal function from previous day. Will HOLD scheduled vancomycin and obtain a random level tomorrow morning. Will plan on resuming vancomycin once trough is <20. Pending Level:*RANDOM* 01/09/22 with AM labs Pharmacy Service will continue to monitor and adjust dosing as required.
[2022-01-08] MEDS: Sodium Chloride 1 GM Tablet PO (10:01)
[2022-01-08] MEDS: FLUoxetine 20 MG Capsule 60 MG GT (10:02)
[2022-01-08] MEDS: Chlorhexidine 15 ML PO ×2 (10:02→20:16)
[2022-01-08] MEDS: dexAMETHasone 4 MG/ML Vial IV (10:04)
[2022-01-08] MEDS: APIXABAN 2.5 MG TABLET GT (10:21)
--- NOTE | 2022-01-08 11:24 | PN.HOSP_ITS ---
Subjective Subjective Patient seen and examined. SHe was emergently sent to the ICU for intubation overnight due to respiratory decompensation. She remains intubated and sedated. RASS score is -4. wbc is 12.4. Objective Data Objective Data Vital Signs: Vital Signs Temp Pulse Resp BP Pulse Ox O2 Del Method O2 Flow Rate 97.2 F L 96 16 77/61 L 97 Mechanical Ventilator 15 01/08/22 08:00 01/08/22 11:00 01/08/22 11:00 01/08/22 11:00 01/08/22 11:00 01/08/22 11:00 01/07/22 13:55 FiO2 40 01/08/22 11:00 Oxygen Flow Rate (L/min) [3] 15 Oxygen Flow Rate (L/min) [2] 15 Oxygen Flow Rate (L/min) [1 ( 15 Initial Baseline)] Oxygen Flow Rate (L/min) 10 Oxygen Delivery Method [3] High Flow Oxygen Delivery Method [2] High Flow Oxygen Delivery Method [1 ( High Flow Initial Baseline)] Oxygen Delivery Method Mechanical Ventilator Weight: 126 lb 12.253 oz Body Mass Index (BMI) 22.9 Intake & Output: Intake and Output for Last 24 Hours 01/06/22 01/07/22 01/08/22 23:59 23:59 23:59 Intake Total 1362.88 / 1362.88 523.12 / 523.12 1242.40 / 1242.40 Output Total 775 / 775 1900 / 1900 350 / 350 Balance 587.88 / 587.88 -1376.88 / -1376.88 892.40 / 892.40 Medical Nutrition Assessment Dietitian: Malnutrition Criteria Met Start: 01/04/22 11:17 Freq: Status: Active Protocol: Document 01/07/22 14:08 AG (Rec: 01/07/22 14:08 [id number]) Nutrition Malnutrition Evidence of Malnutrition Exists Yes Malnutrition (severe): Chronic Evidenced By Suboptimal Energy Intake ( Severe),Weight Loss (Severe) Clinical Problem Chronic Disease or Condition Related Malnutrition Etiology severe, chronic malnutrition related to inadequate energy intake w/ increased energy needs d/t metastatic disease Signs/Symptoms as evidenced by unintentional wt loss of 70.2#/34% x 13 months/ 14.1#/10% <2 months; estimated PO intake meeting < 75% of estimated energy needs >3 months Status Active Problem Recommendation Dietitian Recommendations/Changes 1) regular diet (texture/ consistency per 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 2) If unable to advance PO diet, need to consider enteral nutrition support- consult RD for additional recommendations if indicated. 3) Daily wts. Lab / Micro Data Result Diagrams: 01/08/22 06:25 01/08/22 06:25 Labs: Laboratory Results - last 24 hr 01/07/22 12:04: POC Glucose 91 01/07/22 14:02: Fluid LDH 139 01/07/22 14:02: Fluid Glucose 97 H 01/07/22 14:02: Fluid Total Protein 1.2 01/07/22 14:02: Fluid Source THORACENTESIS, Fluid Color LT YEL, Fluid Appearance SL CLDY, Fluid WBC 0.294, Fluid RBC 1575, Fluid Tot Cell Count 0.365 H, Fld Polynuclear WBCs # 0.014, Fld Polynuclear WBCs % 4.8, Fluid Mononuclear WBCs 0.280, Fld Mononuclear WBCs % 95.2, Fluid Neutrophils 16, Fluid Lymphocytes 36, Fluid Monocytes 5, Fluid Macrophages 4, Fld Mesothelial Cells 39, Fl Pathologist Comment May follow, Fluid Comment 2 SEE COMMENT 01/07/22 15:56: POC Glucose 100 01/07/22 21:35: POC Glucose 135 H 01/08/22 01:44: Lactic Acid 1.9 01/08/22 01:44: WBC 15.1 H, RBC 2.68 L, Hgb 8.6 L, Hct 28.2 L, MCV 105.2 H, MCH 32.1 H, MCHC 30.5 L, RDW Std Deviation 76.0 H, RDW Coeff of [place] 19.7 H, Plt Count 162, MPV 10.0, Immature Gran % (Auto) 3.200 H, Neut % (Auto) 89.2 H, Lymph % (Auto) 2.4 L, [place] % (Auto) 5.1, Eos % (Auto) 0.0, Baso % (Auto) 0.1, Absolute Neuts (auto) 13.4 H, Absolute Lymphs (auto) 0.36 L, Nucleated RBC % 1.7, Differential Comment SCANNED, Hypochromasia RARE, Anisocytosis 1+, Macrocytosis 1+ 01/08/22 01:44: Sodium 143, Potassium 4.1, Chloride 110 H, Carbon Dioxide 23.0, Anion Gap 10, BUN 42 H, Creatinine 1.79 H, Estim Creat Clear Calc 27.78, Est GFR (MDRD) Af Amer 37 L, Est GFR (MDRD) Non-Af 30 L, BUN/Creatinine Ratio 23.5 H, Glucose 150 H, Calcium 9.0 01/08/22 01:44: Magnesium 2.0 01/08/22 06:23: POC Glucose 154 H 01/08/22 06:25: WBC 12.4 H, RBC 2.58 L, Hgb 8.3 L, Hct 27.4 L, MCV 106.2 H, MCH 32.2 H, MCHC 30.3 L, RDW Std Deviation 76.1 H, RDW Coeff of [place] 19.4 H, Plt Count 142 L, MPV 9.9, Immature Gran % (Auto) 3.000 H, Neut % (Auto) 85.7 H, Lymph % (Auto) 6.6 L, [place] % (Auto) 4.5, Eos % (Auto) 0.0, Baso % (Auto) 0.2, Absolute Neuts (auto) 10.6 H, Absolute Lymphs (auto) 0.82 L, Nucleated RBC % 0.9, Differential Comment SCANNED, Anisocytosis 1+, Macrocytosis 1+ 01/08/22 06:25: Sodium 143, Potassium 3.8, Chloride 108 H, Carbon Dioxide 24.0, Anion Gap 11, BUN 45 H, Creatinine 1.61 H, Estim Creat Clear Calc 30.88, Est GFR (MDRD) Af Amer 42 L, Est GFR (MDRD) Non-Af 34 L, BUN/Creatinine Ratio 28.0 H, Glucose 171 H, Calcium 9.0 01/08/22 06:25: Vancomycin Trough 33.2 H Micro: Microbiology 01/07/22 14:02 Fluid - Thoracentesis Fluid Gram Stain - Final 01/07/22 14:02 Fluid - Thoracentesis Fluid Body Fluid Culture - Preliminary No growth-Final to follow 01/08/22 02:23 Sputum, Tracheal Aspirate Gram Stain - Final 01/03/22 19:14 Urine, Catheterized Urine Culture - Final Culture exhibits no growth. 01/04/22 08:20 Sputum, Expectorated/Coughed Gram Stain - Final 01/04/22 08:20 Sputum, Expectorated/Coughed Respiratory Culture - Final Proteus mirabilis 01/03/22 18:00 Blood Culture (Wb) - Port Blood Culture - Preliminary No growth in 48 hours. 01/03/22 19:23 Blood Culture (Wb) - Anticubital Right Blood Culture - Preliminary No growth in 48 hours. 01/03/22 19:14 Urine Catheter - Catheter Legionella Antigen - Final 01/03/22 19:14 Urine Catheter - Catheter Streptococcus pneumoniae Antigen (M - Final ABG Data ABG results: ABG 01/08/22 02:29 Specimen Type ART Sample Site L Radial pH 7.35 Bicarbonate Actual 20.8 L Total CO2 22 Base Excess -5 L O2 Saturation 98 O2 % 75 ABG pCO2 37.5 ABG pO2 116 H Moises Test N/A Respiration Rate 14 O2 Delivery Device Adult Vent Vent Mode AC Tidal Volume 450 POC PEEP 5 Radiography Diagnostic Testing: Radiology Impression Chest X-Ray 01/07/22 13:47 IMPRESSION: Status post right thoracentesis. No evidence of pneumothorax. Electronically Signed: Carlos Chou MD at 14:35 EDT , Thoracentesis Ultrasound 01/07/22 14:58 IMPRESSION: Ultrasound-guided right thoracentesis. Electronically Signed: Carlos Chou MD at 15:02 EDT , Chest X-Ray 01/08/22 00:15 IMPRESSION: 1. Endotracheal tube terminates 2 cm above the ender. 2. Enteric tube in satisfactory position. 3. Bilateral airspace opacities, similar compared to the prior. 4. Small right pleural effusion. Electronically Signed: Caleb Xiong MD at 0:39 EDT , Rhythm Strip Rhythm Strip: Sinus Rhythm Rate: 96 Ectopy: None Physical Exam Const Constitutional Narrative: intubated, sedated, RASS score is -4. HEENT head/scalp atraumatic and moist oral mucous membranes Eyes PERRL, EOMs intact bilaterally and conjunctivae normal Neck no lymphadenopathy, supple and no JVD Resp Resp Narrative: intubated, sedated, diminished breath sounds bibasally, no wheezes or crackles. Cardio regular rate, regular rhythm, S1 normal heart sound, S2 normal heart sound and no murmurs GI normal to inspection, nondistended, normoactive bowel sounds, soft to palpation, non-tender and non-distended Extremity normal to inspection, full ROM and no clubbing, cyanosis or edema Neuro Neuro Narrative: intubated, sedated, RASS score is -4. Assessment & Plan Assessment/Plan (1) Septic shock: (2) Aspiration pneumonia: (3) Hypotension: PLAN: Plan #Acute on chronic hypoxic respiratory failure due to aspiration pneumonia and right pleural effusion, in the setting of metastatic lung cancer * was emergently transferred to the ICU overnight. She was intubated and sedated. * critical care on board. She had thoracentesis yesterday * sputum culture growing Proteus. * on IV vancomycin and zosyn * titrate oxygen to maintain sats >90% * breathing treatment with bronchodilators * pulmonary toileting. * also started on steroids * #HYpotension: still hypotensive. MAP has remained above 65. Initiate vasopressors as needed to maintain MAP>65 #NADIYA on CKD II: resolved. #Dysphagia. Speech therapy on board. Now NPO due to her being intubated and sedated. #TYpe 2 diabetes mellitus * hold lantus. ISS. accuchecks 16 hrly * #Paroxysmal afib; on metoprolol. Hold o/a of BP being low. On eliquis. #history of DVT: On Eliquis which was held for thoracentesis PRognosis: poor. medical team to speak with family for goals discussion. Charges/Coding Visit Charges Inpatient E&M: 45693 Subs Hosp L3
[2022-01-08] MEDS: guaiFENesin 10 ML UDC (200MG/10ML) 20 ML GT ×2 (12:48→17:46)
[2022-01-08] MEDS: Insulin Lispro 100 UNIT/ML INSULN.PEN SC ×2 (12:49→17:59)
[2022-01-08 13:26] LABS: Bedside Glucose 172 mg/dL (74-106)
[2022-01-08] MEDS: Vital AF 1.2 Cal Liquid 1,000 ML 15 ML GT (15:20)
[2022-01-08] MEDS: busPIRone 15 MG TABLET 7.5 MG GT (15:30)
[2022-01-08] MEDS: 0.9% Normal Saline 1,000 ML 999 ML IV (15:59)
[2022-01-08 16:21] LABS: Allen Test Positive; Base Excess -5 mmol/L (-2 to +2); Bicarbonate 20.2 mmol/L (22-26); Blood Gas Specimen Type ART; FI02 35; Mode AC; O2 Delivery Device Adult Vent; PEEP 5; PO2 85 mmHG (75-100); RR 14; SITE L Brach; SO2 96 % (95-99); Total Carbon Dioxide 21 mmol/L; Vt 450; pCO2 35.7 mmHg (35-45); pH 7.36 (7.35-7.45)
--- NOTE | 2022-01-08 18:11 | EKG12_ITS ---
Test Reason : ABNORMAL RHYTHM Blood Pressure : / mmHG Vent. Rate : 118 BPM Atrial Rate : 118 BPM P-R Int : 148 ms QRS Dur : 094 ms QT Int : 350 ms P-R-T Axes : 081 -71 072 degrees QTc Int : 490 ms Sinus tachycardia Left axis deviation Anteroseptal infarct (cited on or before 24-JUL-2020) Abnormal ECG When compared with ECG of 03-JAN-2022 19:16, Vent. rate has increased BY 46 BPM Questionable change in initial forces of Anterior leads ST elevation now present in Anterior leads Confirmed by TESSA KAN, VISH ([id number]), purchase request editor JOSE GUADALUPE ALLEN ([id number]) on 01/11/2022 11:20:20 AM Referred By: BRIANA Confirmed By:VISH ZARATE MD
--- NOTE | 2022-01-08 18:11 | EKG12_ITS ---
Test Reason : ABNORMAL RHYTHM Blood Pressure : / mmHG Vent. Rate : 119 BPM Atrial Rate : 119 BPM P-R Int : 152 ms QRS Dur : 094 ms QT Int : 324 ms P-R-T Axes : 080 -73 080 degrees QTc Int : 455 ms Sinus tachycardia Left axis deviation Anteroseptal infarct , age undetermined Abnormal ECG When compared with ECG of 08-JAN-2022 18:11, MANUAL COMPARISON REQUIRED, DATA IS UNCONFIRMED Confirmed by TESSA KAN, VISH ([id number]), legal editor JOSE GUADALUPE ALLEN ([id number]) on 01/11/2022 11:20:09 AM Referred By: BRIANA Confirmed By:VISH ZARATE MD
[2022-01-08 18:36] LABS: Bedside Glucose 183 mg/dL (74-106)
[2022-01-08 18:59] LABS: Anion Gap 10 (5-15); BUN 47 mg/dL (7-18); BUN/Creat Ratio 32.4 RATIO (10-20); Calcium,Total 8.5 mg/dL (8.5-10.1); Chloride 112 mmol/L (98-107); Creatinine, Serum 1.45 mg/dL (0.55-1.02); EST Glomerular Filtration Rate 39 mL/min (>60); Est Glom Filt Rate - Afr Amer 47 mL/min (>60); Estimated Creatinine Clearance 34.29 ml/min; Glucose 225 mg/dL (74-106); Magnesium 2.3 mg/dL (1.6-2.6); Phosphorus 4.2 mg/dL (2.5-4.9); Potassium 3.6 mmol/L (3.5-5.1); Sodium Level 145 mmol/L (136-145)
[2022-01-08] MEDS: Potassium Chloride Oral Soln 20 MEQ/15 ML UDC 40 MEQ GT (20:18)
[2022-01-09] VITALS (30 sets, daily range): BP systolic 51–134; BP diastolic 39–90; PULSE 100–134; RESP 12–27; TEMP 36.3–36.9; O2SAT 81–96
[2022-01-09] MEDS: Albuterol 2.5 MG/3 ML VIAL.NEB. INHALATION ×2 (01:09→07:25)
[2022-01-09] MEDS: busPIRone 15 MG TABLET 7.5 MG GT ×2 (02:29→05:08)
[2022-01-09] MEDS: Atorvastatin Calcium 40 MG Tablet GT (02:30)
[2022-01-09] MEDS: guaiFENesin 10 ML UDC (200MG/10ML) 20 ML GT ×2 (02:30→05:09)
[2022-01-09] MEDS: dexAMETHasone 4 MG/ML Vial IV ×2 (02:30→10:12)
[2022-01-09] MEDS: Insulin Lispro 100 UNIT/ML INSULN.PEN SC ×2 (02:33→05:09)
[2022-01-09 03:05] LABS: Bedside Glucose 227 mg/dL (74-106)
[2022-01-09 05:32] LABS: Anion Gap 9 (5-15); BUN 45 mg/dL (7-18); BUN/Creat Ratio 36.3 RATIO (10-20); Chloride 113 mmol/L (98-107); Creatinine, Serum 1.24 mg/dL (0.55-1.02); EST Glomerular Filtration Rate 46 mL/min (>60); Est Glom Filt Rate - Afr Amer 56 mL/min (>60); Glucose 250 mg/dL (74-106); Magnesium 2.4 mg/dL (1.6-2.6); Potassium 4.1 mmol/L (3.5-5.1); Sodium Level 144 mmol/L (136-145)
[2022-01-09 05:36] LABS: Bedside Glucose 238 mg/dL (74-106)
[2022-01-09 05:48] LABS: Vancomycin, Random Level 21.7 ug/mL (0.0-15.0)
[2022-01-09 05:56] LABS: Phosphorus 2.6 mg/dL (2.5-4.9)
[2022-01-09 06:10] LABS: Allen Test Positive; Base Excess -4 mmol/L (-2 to +2); Bicarbonate 20.8 mmol/L (22-26); Blood Gas Specimen Type ART; FI02 30; Mode CPAP/PS; O2 Delivery Device ET Tube; PEEP 5; PO2 62 mmHG (75-100); SITE L Radial; SO2 92 % (95-99); Total Carbon Dioxide 22 mmol/L; pCO2 31.5 mmHg (35-45); pH 7.43 (7.35-7.45)
--- NOTE | 2022-01-09 06:41 | PN.CC_ITS ---
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 Okay to proceed with extubation 2. Continue broad-spectrum antibiotics pending cultures 3. Family meeting today to discuss CODE STATUS 4. Consider oncology consult for prognostication 5. Continue steroids for now IMPRESSIONS: 1. Acute hypoxic respiratory failure secondary to postobstructive pneumonia with Proteus mirabilis with possible aspiration Patient with mediastinal lymphadenopathy and obstruction earlier this month. Patient now growing Proteus with acute decompensation. Patient does have a significant pleural effusion. It is unclear if this is secondary to the small cell lung cancer or a parapneumonic effusion. Chest x-ray appears to be improved following thoracentesis. Patient did have 950 cc removed, but elevated diaphragm is suggestive of atelectasis, likely of the right middle lobe. Repeat cultures have been sent. We will continue with antibiotics, but significant concern for progression of cancer and poor metabolic reserve affecting prognosis. Patient will be extubated. Still significantly guarded respiratory status. Repeat cultures show no growth. 2. Acute kidney injury on CKD stage II Stable. Given transudate pathology for pleural effusion, diuretics could be considered in the future if pleural effusion recurs. Electrolyte repletion as indicated. 3. Paroxysmal A. fib/history of DVT/type 2 diabetes mellitus/advanced small cell lung cancer Complicates care, management, recovery and prognosis. Okay to initiate Eliquis from my perspective. Patient is on Decadron secondary to small cell lung cancer. This will need to be continued, but will also require increased insulin requirements. Consider consult to oncology to discuss prognosis. Patient is stating that she wants to be a full code at this time, but long-term prognosis with brain metastasis in small cell is grim. Will attempt to discuss with family later this morning. 4. Hypotension Unclear etiology. Patient did not have an ABG prior to intubation, but acidosis with hypoxia would be a concern. Patient does have significant mediastinal lymphadenopathy, so decreased venous return would also be a concern. Patient is currently on Decadron, so adrenal insufficiency would be unlikely. Given clinical course, hypotension may be secondary to medications. We will continue to monitor closely. Addendum 10:36 AM: Extensive conversation with the family (, daughter?POA, son and d [id number]) about patient's condition. They are happy that the patient was extubated and understand that she is not been right for months. Patient has had recurrent pneumonias and complications of postobstructive pneumonia. Patient also has had issues with mentation following radiation. After review of the patient's status and current situation, the family is requesting hospice services. The family would like the patient to be transferred to the hospice center and I believe this is appropriate. Social work will be contacted and this will be arranged to soon as possible. TIME: 77 minutes critical care time spent addressing patient's hypotension, respiratory failure, acute kidney injury, review of all data, placement of orders and collaboration with care team. Subjective Subjective Patient did okay overnight. Patient was able to have a spontaneous breathing trial this morning. With lack of sedation, patient has been taken off of Levophed also. Patient did have some complications bloody respiratory secretions, so Eliquis has been held. Family contacted yesterday. Anticipate possible family meeting this morning. Objective Data Objective Data Vital Signs: Vital Signs Temp Pulse Resp BP Pulse Ox O2 Del Method O2 Flow Rate 36.3 C L 117 H 17 99/66 91 Mechanical Ventilator 15 01/09/22 00:00 01/09/22 06:00 01/09/22 06:00 01/09/22 06:15 01/09/22 06:00 01/09/22 06:00 01/07/22 13:55 FiO2 30 01/09/22 04:08 Oxygen Flow Rate (L/min) [3] 15 Oxygen Flow Rate (L/min) [2] 15 Oxygen Flow Rate (L/min) [1 ( 15 Initial Baseline)] Oxygen Flow Rate (L/min) 10 Oxygen Delivery Method [3] High Flow Oxygen Delivery Method [2] High Flow Oxygen Delivery Method [1 ( High Flow Initial Baseline)] Oxygen Delivery Method Mechanical Ventilator Weight: 57.5 kg Body Mass Index (BMI) 22.9 Intake & Output: Intake and Output for Last 24 Hours 01/07/22 01/08/22 01/09/22 23:59 23:59 23:59 Intake Total 523.12 / 523.12 2699.99 / 2716.79 424.88 / 424.88 Output Total 1900 / 1900 800 / 800 300 / 300 Balance -1376.88 / -1376.88 1899.99 / 1916.79 124.88 / 124.88 Medical Nutrition Assessment Dietitian: Malnutrition Criteria Met Start: 01/04/22 11:17 Freq: Status: Active Protocol: Document 01/08/22 12:33 [facility] (Rec: 01/08/22 12:33 [facility] [id number]) Nutrition Malnutrition Evidence of Malnutrition Exists Yes Malnutrition (severe): Acute Illness/Injury,Chronic Evidenced By Suboptimal Energy Intake ( Severe),Weight Loss (Severe) Clinical Problem Acute Disease or Injury Related Malnutrition Etiology related to inadequate energy intake with increased energy needs 2/2 metastatic disease Signs/Symptoms as evidenced by unintentional weight loss of 7.0#/5% x 6 days; estimated PO intake meeting <50% of estimated energy needs >5 days. Status Active Problem Chronic Disease or Condition Related Malnutrition Etiology severe, chronic malnutrition related to inadequate energy intake w/ increased energy needs d/t metastatic disease Signs/Symptoms as evidenced by unintentional wt loss of 70.2#/34% x 13 months/ 14.1#/10% <2 months; estimated PO intake meeting < 75% of estimated energy needs >3 months Status Active Problem Recommendation Dietitian Recommendations/Changes Initiate enteral nutrition - Vital AF 1.2 starting at 15mL/ hr continuous feeding with free water flush of 30mL q 4 hours with monitoring of electrolytes to prevent refeeding syndrome. Will monitor and advance tomorrow as indicated. The feeding and flush will provide 432kcal, 27g protein, 472mL free water. Order daily weights, and magnesium and phosphorus labs to monitor for refeeding syndrome. Lab / Micro Data Attestation: I reviewed the patient's lab results. Result Diagrams: 01/09/22 05:00 01/09/22 05:00 Labs: Laboratory Results - last 24 hr 01/08/22 06:23: POC Glucose 154 H 01/08/22 06:25: Differential Comment SCANNED, Anisocytosis 1+, Macrocytosis 1+ 01/08/22 06:25: Sodium 143, Potassium 3.8, Chloride 108 H, Carbon Dioxide 24.0, Anion Gap 11, BUN 45 H, Creatinine 1.61 H, Estim Creat Clear Calc 30.88, Est GFR (MDRD) Af Amer 42 L, Est GFR (MDRD) Non-Af 34 L, BUN/Creatinine Ratio 28.0 H, Glucose 171 H, Calcium 9.0 01/08/22 06:25: Vancomycin Trough 33.2 H 01/08/22 12:49: POC Glucose 172 H 01/08/22 17:58: POC Glucose 183 H 01/08/22 18:30: Sodium 145, Potassium 3.6, Chloride 112 H, Carbon Dioxide 23.0, Anion Gap 10, BUN 47 H, Creatinine 1.45 H, Estim Creat Clear Calc 34.29, Est GFR (MDRD) Af Amer 47 L, Est GFR (MDRD) Non-Af 39 L, BUN/Creatinine Ratio 32.4 H, Glucose 225 H, Calcium 8.5, Phosphorus 4.2, Magnesium 2.3 01/09/22 02:32: POC Glucose 227 H 01/09/22 05:00: Sodium 144, Potassium 4.1, Chloride 113 H, Carbon Dioxide 22.0, Anion Gap 9, BUN 45 H, Creatinine 1.24 H, Estim Creat Clear Calc 40.10, Est GFR (MDRD) Af Amer 56 L, Est GFR (MDRD) Non-Af 46 L, BUN/Creatinine Ratio 36.3 H, Glucose 250 H, Calcium 9.0, Magnesium 2.4 01/09/22 05:00: Random Vancomycin 21.7 H 01/09/22 05:00: Phosphorus 2.6 01/09/22 05:06: POC Glucose 238 H Micro: Microbiology 01/07/22 14:02 Fluid - Thoracentesis Fluid Gram Stain - Final 01/07/22 14:02 Fluid - Thoracentesis Fluid Body Fluid Culture - Preliminary No growth-Final to follow 01/08/22 02:23 Sputum, Tracheal Aspirate Gram Stain - Final 01/03/22 19:14 Urine, Catheterized Urine Culture - Final Culture exhibits no growth. 01/04/22 08:20 Sputum, Expectorated/Coughed Gram Stain - Final 01/04/22 08:20 Sputum, Expectorated/Coughed Respiratory Culture - Final Proteus mirabilis 01/03/22 18:00 Blood Culture (Wb) - Port Blood Culture - Preliminary No growth in 48 hours. 01/03/22 19:23 Blood Culture (Wb) - Anticubital Right Blood Culture - Preliminary No growth in 48 hours. 01/03/22 19:14 Urine Catheter - Catheter Legionella Antigen - Final 01/03/22 19:14 Urine Catheter - Catheter Streptococcus pneumoniae Antigen (M - Final ABG Data ABG results: ABG 01/08/22 01/09/22 16:10 06:03 Specimen Type ART ART Sample Site L Brach L Radial pH 7.36 7.43 Bicarbonate Actual 20.2 L 20.8 L Total CO2 21 22 Base Excess -5 L -4 L O2 Saturation 96 92 L O2 % 35 30 ABG pCO2 35.7 31.5 L ABG pO2 85 62 L Moises Test Positive Positive Respiration Rate 14 O2 Delivery Device Adult Vent ET Tube Vent Mode AC CPAP/PS Tidal Volume 450 POC PEEP 5 5 Rhythm Strip Rhythm Strip: Sinus Tach Rate: 116 Ectopy: None Physical Exam Const oriented x3 Constitutional Narrative: RASS -3. General Appearance: cooperative, ill appearing, frail and patient mechanically ventilated; Negative for in distress HEENT head/scalp atraumatic and moist oral mucous membranes Eyes PERRL, EOMs intact bilaterally and conjunctivae normal Neck no lymphadenopathy, supple and no JVD Resp Resp Narrative: Much better air exchange compared to yesterday Effort and Inspection: prolonged expiratory phase Auscultation: rhonchi right lower, wheezes scattered wheezes and diminished lung sounds; Negative for rales Percussion: Negative for dullness Cardio regular rate, regular rhythm, S1 normal heart sound, S2 normal heart sound, no murmurs, no rub, no gallops and no JVD GI normal to inspection, nondistended, normoactive bowel sounds, soft to palpation, non-tender and non-distended Extremity normal to inspection, full ROM and no clubbing, cyanosis or edema Neuro oriented x3, CN's II-XII intact bilaterally, moves all extremities and no focal motor deficits Neuro Narrative: Not following commands Sensorium / Orientation: sedated on vent RASS: -3 Motor Exam: strength 5/5 throughout Psych Mood & Affect: flat affect Charges/Coding Procedures Hospitalists Procedures: 36122 Critial Care 1st Hr Multi Select Codes Hospitalists' Procedures Procedures: 29712 Critial Care Addl 30 Min
[2022-01-09 07:22] LABS: Absolute Lymphocyte Count 0.43 X10^3/uL (0.83-4.51); Absolute Neutrophil Count 13.7 X10^3/uL (2.0-7.7); Basophil# 0.02 X10^3/uL; Basophil% 0.1 % (0-1); Eosinophil# 0.01 X10^3/uL; Eosinophils% 0.1 % (0-5); Hemoglobin 8.3 g/dL (12.0-15.0); Lymphocyte # 0.43 X10^3/ul (0.83-4.51); Lymphocyte % 2.8 % (19-41); Mean Corp Hgb Conc 30.7 g/dL (32-36); Mean Corpuscular Volume 104.2 fL (81-99); Mean Platelet Vol. 11.5 fl (6.2-12.0); Monocyte# 0.66 X10^3/uL; Monocyte% 4.3 % (0-10); NRBC Flagged by Analyzer 1.3 % (0-5); Neutrophil % 90.3 % (47-70); POSITIVE DIFFERENTIAL YES; POSITIVE MORPHOLOGY YES; Platelet Count 185 K/mm3 (150-450); RBC Distribution Width SD 76.5 fl (35.1-43.9); Red Blood Count 2.59 M/mm3 (4.2-5.4); White Blood Count 15.2 K/mm3 (4.4-11.0)
[2022-01-09] MEDS: Budesonide Respules 0.5 MG/2 ML AMPUL.NEB. INHALATION (07:25)
--- NOTE | 2022-01-09 07:25 | PCM.RX.CS ---
Consult Pharmacy has been consulted to manage selected antiobiotic: Vancomycin Type of Consult: Follow-up Labs: Sodium 144 mmol/L (136-145) 01/09/22 05:00 Potassium 4.1 mmol/L (3.5-5.1) 01/09/22 05:00 Chloride 113 mmol/L (98-107) H 01/09/22 05:00 Carbon Dioxide 22.0 mmol/L (21.0-32.0) 01/09/22 05:00 Anion Gap 9 (5-15) 01/09/22 05:00 BUN 45 mg/dL (7-18) H 01/09/22 05:00 Creatinine 1.24 mg/dL (0.55-1.02) H 01/09/22 05:00 Est GFR (MDRD) Af Amer 56 mL/min (>60) L 01/09/22 05:00 Est GFR (MDRD) Non-Af 46 mL/min (>60) L 01/09/22 05:00 BUN/Creatinine Ratio 36.3 RATIO (10-20) H 01/09/22 05:00 Glucose 250 mg/dL (74-106) H 01/09/22 05:00 Vancomycin Trough 33.2 ug/mL (5.0-15.0) H 01/08/22 06:25 Random Vancomycin 21.7 ug/mL (0.0-15.0) H 01/09/22 05:00 Microbiology: Microbiology 01/03/22 19:23 Blood Culture (Wb) - Anticubital Right Blood Culture - Final No growth in 5 days. 01/03/22 18:00 Blood Culture (Wb) - Port Blood Culture - Final No growth in 5 days. 01/07/22 14:02 Fluid - Thoracentesis Fluid Gram Stain - Final 01/07/22 14:02 Fluid - Thoracentesis Fluid Body Fluid Culture - Preliminary No growth-Final to follow 01/08/22 02:23 Sputum, Tracheal Aspirate Gram Stain - Final 01/03/22 19:14 Urine, Catheterized Urine Culture - Final Culture exhibits no growth. 01/04/22 08:20 Sputum, Expectorated/Coughed Gram Stain - Final 01/04/22 08:20 Sputum, Expectorated/Coughed Respiratory Culture - Final Proteus mirabilis 01/03/22 19:14 Urine Catheter - Catheter Legionella Antigen - Final 01/03/22 19:14 Urine Catheter - Catheter Streptococcus pneumoniae Antigen (M - Final Goal Trough: 15-20 mcg/mL Pharmacy Plan for Drug Dosing: VANCOMYCIN LEVEL RECEIVED Current Vancomycin Dose: ON HOLD- Last Admin 01/07/22@ 1723 Number of Doses Received: Current dosing on HOLD Vancomycin Level: 21.7 Hours Since Last Dose: ~36hr Renal Function: 1.24/ 40mL/min Renal Function Trend: improvement from yesterday Lab/Micro: Repeat Cx still pending, previous cultures with proteus mirabilis (on Zosyn) Vancomycin Plan/Comments: Patient had a random trough drawn which resulted in a value of 21.7 (goal 15-20). Patient with significant improvement in renal function overnight. Will plan on resuming vancomycin this evening to allow more time for trough to decrease throughout the day as well as decrease the frequency from Q12h to once daily based on trough levels. Will resume vancomycin 1000mg IV Q24hr to start 01/09/22 @1700 Pending Level: 01/11/22 @1630, prior to 3d dose of new regimen per protocol Pharmacy Service will continue to monitor and adjust dosing as required.
[2022-01-09 07:31] LABS: Differential Indicated SCAN CRITERIA MET
[2022-01-09 08:20] LABS: Anisocytosis 1+
[2022-01-09] MEDS: 0.9% Saline Lock 10 ML Syringe IV ×3 (08:31→13:40)
[2022-01-09] MEDS: Insulin Glargine-YFGN 100 UNIT/ML Pen 16 UNIT SC (08:36)
[2022-01-09 08:56] LABS: Bedside Glucose 246 mg/dL (74-106)
--- NOTE | 2022-01-09 09:40 | PCM.PN.HOSP ---
Subjective Subjective Patient seen and examined. She was extubated this morning. She remains lethargic, though she is able to open her eyes to voice. Unable to do review of systems due to lethargy. She is tachycardic. Objective Data Objective Data Vital Signs: Vital Signs Temp Pulse Resp BP Pulse Ox O2 Del Method O2 Flow Rate 97.4 F L 124 H 22 H 99/66 93 Nasal Cannula 5 01/09/22 00:00 01/09/22 08:00 01/09/22 07:40 01/09/22 06:15 01/09/22 07:40 01/09/22 08:00 01/09/22 08:00 FiO2 30 01/09/22 04:08 Oxygen Flow Rate (L/min) [3] 15 Oxygen Flow Rate (L/min) [2] 15 Oxygen Flow Rate (L/min) [1 ( 15 Initial Baseline)] Oxygen Flow Rate (L/min) 5 Oxygen Delivery Method [3] High Flow Oxygen Delivery Method [2] High Flow Oxygen Delivery Method [1 ( High Flow Initial Baseline)] Oxygen Delivery Method Nasal Cannula Weight: 126 lb 12.253 oz Body Mass Index (BMI) 22.9 Intake & Output: Intake and Output for Last 24 Hours 01/07/22 01/08/22 01/09/22 23:59 23:59 23:59 Intake Total 523.12 / 523.12 2699.99 / 2716.79 807.48 / 807.48 Output Total 1900 / 1900 800 / 800 450 / 450 Balance -1376.88 / -1376.88 1899.99 / 1916.79 357.48 / 357.48 Medical Nutrition Assessment Dietitian: Malnutrition Criteria Met Start: 01/04/22 11:17 Freq: Status: Active Protocol: Document 01/08/22 12:33 LANI (Rec: 01/08/22 12:33 LANI [id number]) Nutrition Malnutrition Evidence of Malnutrition Exists Yes Malnutrition (severe): Acute Illness/Injury,Chronic Evidenced By Suboptimal Energy Intake ( Severe),Weight Loss (Severe) Clinical Problem Acute Disease or Injury Related Malnutrition Etiology related to inadequate energy intake with increased energy needs 2/2 metastatic disease Signs/Symptoms as evidenced by unintentional weight loss of 7.0#/5% x 6 days; estimated PO intake meeting <50% of estimated energy needs >5 days. Status Active Problem Chronic Disease or Condition Related Malnutrition Etiology severe, chronic malnutrition related to inadequate energy intake w/ increased energy needs d/t metastatic disease Signs/Symptoms as evidenced by unintentional wt loss of 70.2#/34% x 13 months/ 14.1#/10% <2 months; estimated PO intake meeting < 75% of estimated energy needs >3 months Status Active Problem Recommendation Dietitian Recommendations/Changes Initiate enteral nutrition - Vital AF 1.2 starting at 15mL/ hr continuous feeding with free water flush of 30mL q 4 hours with monitoring of electrolytes to prevent refeeding syndrome. Will monitor and advance tomorrow as indicated. The feeding and flush will provide 432kcal, 27g protein, 472mL free water. Order daily weights, and magnesium and phosphorus labs to monitor for refeeding syndrome. Lab / Micro Data Result Diagrams: 01/09/22 05:00 01/09/22 05:00 Labs: Laboratory Results - last 24 hr 01/08/22 12:49: POC Glucose 172 H 01/08/22 17:58: POC Glucose 183 H 01/08/22 18:30: Sodium 145, Potassium 3.6, Chloride 112 H, Carbon Dioxide 23.0, Anion Gap 10, BUN 47 H, Creatinine 1.45 H, Estim Creat Clear Calc 34.29, Est GFR (MDRD) Af Amer 47 L, Est GFR (MDRD) Non-Af 39 L, BUN/Creatinine Ratio 32.4 H, Glucose 225 H, Calcium 8.5, Phosphorus 4.2, Magnesium 2.3 01/09/22 02:32: POC Glucose 227 H 01/09/22 05:00: WBC 15.2 H, RBC 2.59 L, Hgb 8.3 L, Hct 27.0 L, MCV 104.2 H, MCH 32.0, MCHC 30.7 L, RDW Std Deviation 76.5 H, RDW Coeff of [place] 20.0 H, Plt Count 185, MPV 11.5, Immature Gran % (Auto) 2.400 H, Neut % (Auto) 90.3 H, Lymph % (Auto) 2.8 L, [place] % (Auto) 4.3, Eos % (Auto) 0.1, Baso % (Auto) 0.1, Absolute Neuts (auto) 13.7 H, Absolute Lymphs (auto) 0.43 L, Nucleated RBC % 1.3, Anisocytosis 1+ 01/09/22 05:00: Sodium 144, Potassium 4.1, Chloride 113 H, Carbon Dioxide 22.0, Anion Gap 9, BUN 45 H, Creatinine 1.24 H, Estim Creat Clear Calc 40.10, Est GFR (MDRD) Af Amer 56 L, Est GFR (MDRD) Non-Af 46 L, BUN/Creatinine Ratio 36.3 H, Glucose 250 H, Calcium 9.0, Magnesium 2.4 01/09/22 05:00: Random Vancomycin 21.7 H 01/09/22 05:00: Phosphorus 2.6 01/09/22 05:06: POC Glucose 238 H 01/09/22 08:35: POC Glucose 246 H Micro: Microbiology 01/03/22 19:23 Blood Culture (Wb) - Anticubital Right Blood Culture - Final No growth in 5 days. 01/03/22 18:00 Blood Culture (Wb) - Port Blood Culture - Final No growth in 5 days. 01/07/22 14:02 Fluid - Thoracentesis Fluid Gram Stain - Final 01/07/22 14:02 Fluid - Thoracentesis Fluid Body Fluid Culture - Preliminary No growth-Final to follow 01/08/22 02:23 Sputum, Tracheal Aspirate Gram Stain - Final 01/03/22 19:14 Urine, Catheterized Urine Culture - Final Culture exhibits no growth. 01/04/22 08:20 Sputum, Expectorated/Coughed Gram Stain - Final 01/04/22 08:20 Sputum, Expectorated/Coughed Respiratory Culture - Final Proteus mirabilis 01/03/22 19:14 Urine Catheter - Catheter Legionella Antigen - Final 01/03/22 19:14 Urine Catheter - Catheter Streptococcus pneumoniae Antigen (M - Final ABG Data ABG results: ABG 01/08/22 01/09/22 16:10 06:03 Specimen Type ART ART Sample Site L Brach L Radial pH 7.36 7.43 Bicarbonate Actual 20.2 L 20.8 L Total CO2 21 22 Base Excess -5 L -4 L O2 Saturation 96 92 L O2 % 35 30 ABG pCO2 35.7 31.5 L ABG pO2 85 62 L Moises Test Positive Positive Respiration Rate 14 O2 Delivery Device Adult Vent ET Tube Vent Mode AC CPAP/PS Tidal Volume 450 POC PEEP 5 5 Rhythm Strip Rhythm Strip: Sinus Tach Rate: 116 Ectopy: None Physical Exam Const alert Constitutional Narrative: extubated, lethargic Orientation / Consciousness: lethargic HEENT head/scalp atraumatic and moist oral mucous membranes Eyes PERRL, EOMs intact bilaterally and conjunctivae normal Neck no lymphadenopathy, supple and no JVD Resp Resp Narrative: extubated, on oxygen 4L, bilateral crackles. Diminished breath sounds bibasally. Cardio regular rate, regular rhythm, S1 normal heart sound, S2 normal heart sound and no murmurs Cardio Narrative: tachycardic GI normal to inspection, nondistended, normoactive bowel sounds, soft to palpation, non-tender and non-distended Extremity normal to inspection, full ROM and no clubbing, cyanosis or edema Neuro Neuro Narrative: lethargic Sensorium / Orientation: awake and alert Motor Exam: strength 5/5 throughout Assessment & Plan Assessment/Plan (1) Septic shock: (2) Aspiration pneumonia: (3) Hypotension: PLAN: Plan #Acute on chronic hypoxic respiratory failure due to aspiration pneumonia and right pleural effusion, in the setting of metastatic lung cancer extubated this morning,a nd now on 4L of oxygen. on IV vancomycin and zosyn sputum culture grew Proteus. Repeat blood cultures negative has had thoracentesis with removal of 950cc of fluid on IV vancomycin and zosyn titrate oxygen to maintain sats >90% breathing treatment with bronchodilators pulmonary toileting. also started on steroids #Hypotension:resolved #NADIYA on CKD II: resolved.CR is down to 1.24 #Dysphagia. Speech therapy on board. #TYpe 2 diabetes mellitus hold lantus. ISS. accuchecks 16 hrly #Paroxysmal afib; on metoprolol. Hold o/a of BP being low. On eliquis. #history of DVT: On Eliquis which was held for thoracentesis PRognosis: poor.Family meeting today to decide about her code status. Charges/Coding Visit Charges Inpatient E&M: 58749 [facility] Hosp L3
[2022-01-09 12:20] LABS: Bedside Glucose 231 mg/dL (74-106)
--- NOTE | 2022-01-09 13:01 | NURSING ---
[facility] hospice called and plans to meet with family around [phone]
[2022-01-09] MEDS: Morphine 4 MG/ML Syringe IV (13:11)
[2022-01-09] MEDS: Atropine Sulfate 1% 2 ml Bottle 4 DRP PO (13:11)
[2022-01-09] MEDS: LORazepam 2 MG/ML Syringe IV (13:40)
--- NOTE | 2022-01-09 15:05 | NURSING ---
Rhythm change on monitor. Upon checking on patient, no respirations or pulse. Family and adult basic education teacher at bedside discussing plan of care. C.Eyerly RN confirmed with this RN no heart tones via auscultation. Time of 1505. Emotional support given to family. fashion design professor remains at bedside for support
--- NOTE | 2022-01-09 16:09 | PCM.DEATH ---
Preliminary Cause of Preliminary Cause of Preliminary Cause of : acute hypoxic respiratory failure due to post obstructive and aspiration pneumonia and right pleural effusion Date of Admission: 01/03/22 Date of : 01/09/22 Principle Diagnosis acute on chronic hypoxic respiratory failure due to aspiration pneumonia and right pleural effusion Problem List: Active and Suspected Problems (Updated 01/07/22 @ 23:[address] 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 Anemia (Acute) chemotherapy related. Hospital Course Patient is a 61-year-old female with a past medical history as outlined including small cell lung cancer with mets to the brain status postchemotherapy and radiation. She was admitted through the ED on 01/03/2022 with a 2-week history of progressively worsening weakness as well as dysphagia and shortness of breath. She also had an associated cough. She was initially hypotensive and tachypneic. Chest x-ray showed right-sided pneumonia. She was admitted and treated for aspiration. She was started on IV Unasyn. Patient initially started to improve a bit but subsequently decompensated and became progressively hypoxic. CTA of the chest showed no evidence of PE but showed right-sided pleural effusion and pneumonia. Pulmonology was consulted. Eliquis was held and she had thoracentesis with removal of 950 mils of fluid. Patient however continued to deteriorate and required BiPAP and was eventually transferred to the ICU on 01/07/2022 and intubated. Of note antibiotics were also broadened to IV vancomycin and Zosyn. His sputum culture came back positive for Proteus. Patient was eventually extubated but remained very weak and frail. Family gathered for goals of care discussion and family opted for hospice consult. Family and hospice nurse were at bedside discussing plan of care 1 rhythm changes were noted on the monitor and patient was noticed to be apneic and pulseless. Patient was confirmed to have at 1505 on 01/09/2022. Cause of is acute on chronic hypoxic respiratory failure due to postobstructive and aspiration pneumonia in a patient with small cell lung cancer with mets to the brain. Visit Charges Inpatient E&M: 09514 [facility] H[facility]
--- NOTE | 2022-01-10 08:23 | CASEMGMT ---
NIESHA received a voice mail from [facility] at Hospice inquiring about patient's status as they received as referral. SW looked patient up and noted she yesterday. NIESHA called [facility] at [facility] and let her know this information. Karen ARRIAZA
[2022-01-11 09:54] LABS: Pathologist Comment/Body Fluid Reviewed
== END 2022-01-09 17:00 | DRG 137 ==
LOC: ED 18:37 → PCU 20:51 → ICU 01-08 00:56
PROVIDERS: Internal Medicine Critical Care Medicine; Admitting Provider Hospitalist; Emergency Provider Emergency Medicine; PCP Internal Medicine; Visit Provider Student in an Organized Health Care Education/Training Program
DX: J15.6 Pneumonia due to other Gram-negative bacteria (principal); J96.21 Acute and chronic respiratory failure with hypoxia; R65.21 Severe sepsis with septic shock; A41.9 Sepsis, unspecified organism; E43 Unspecified severe protein-calorie malnutrition; I13.0 Hypertensive heart and chronic kidney disease with heart failure and stage 1 through stage 4 chronic kidney disease, or unspecified chronic kidney disease; C34.2 Malignant neoplasm of middle lobe, bronchus or lung; D64.9 Anemia, unspecified; N17.9 Acute kidney failure, unspecified; J69.0 Pneumonitis due to inhalation of food and vomit; C79.31 Secondary malignant neoplasm of brain; I50.9 Heart failure, unspecified; J44.0 Chronic obstructive pulmonary disease with (acute) lower respiratory infection; E11.22 Type 2 diabetes mellitus with diabetic chronic kidney disease; E11.65 Type 2 diabetes mellitus with hyperglycemia; Z79.4 Long term (current) use of insulin; I48.0 Paroxysmal atrial fibrillation; E11.42 Type 2 diabetes mellitus with diabetic polyneuropathy; I95.9 Hypotension, unspecified; I25.10 Atherosclerotic heart disease of native coronary artery without angina pectoris; E78.5 Hyperlipidemia, unspecified; E87.5 Hyperkalemia; N18.2 Chronic kidney disease, stage 2 (mild); K21.9 Gastro-esophageal reflux disease without esophagitis; I25.2 Old myocardial infarction; E86.0 Dehydration; F41.9 Anxiety disorder, unspecified; R59.0 Localized enlarged lymph nodes; R13.10 Dysphagia, unspecified; R41.0 Disorientation, unspecified; Z86.718 Personal history of other venous thrombosis and embolism; Z68.21 Body mass index [BMI] 21.0-21.9, adult; Z79.899 Other long term (current) drug therapy; Z87.891 Personal history of nicotine dependence; Z79.01 Long term (current) use of anticoagulants; Z79.51 Long term (current) use of inhaled steroids; Z92.3 Personal history of irradiation; F32.A Depression, unspecified
CPT/HCPCS: 31500; 31720; 32555; 36415; 36591; 36600; 70553; 71045; 71046; 71275; 74230; 80048; 80053; 80076; 80202; 81001; 82803; 82945; 82962; 83605; 83615; 83735; 84100; 84157; 85025; 85610; 85730; 87040; 87070; 87075; 87077; 87086; 87186; 87205; 87449; 88108; 88305; 88313; 88341; 88342; 89050; 92526; 92610; 93005; 94002; 94003; 94640; 94668; 94762; 97162; 97166; 97530; 97535; 97802; 97803; 99251; 99285; A9575; J7030; J7040; J7050; Q9967; A4216; G0463; J0295; J1940; J3010